=== PATIENT | female | born 1940 | race Caucasian/White ===

== ENCOUNTER 2018-07-30 12:07 | Inpatient (IN) ==
--- NOTE | 2018-07-30 12:56 | Internal Med History&Physical ---
Medical - H&P: [facility] Patient information: Note initiated : 07/30/18 at 12:54 pm Service Date, if different from initiated Date: [] Patient: Ema Vang a 78 y/o F admitted on 07/30/18 for GI Problems. Chief Complaint: [] History of present illness: Ms. Vang is a 78 year old F Who has acute on chronic diarrhea which is been occurring since April. She reports that this started after colonoscopy. She also had an EGD at that time and sounds like she had developed dilatation of her Schatzki ring. Small bowel biopsies were taken with nonspecific findings. Her diarrhea has been 5 or 6 times daily watery. As of lately she has had more at night with past 3 nights 6 times each night watery. She is been more lightheaded lately and was lightheaded at the dialysis center today. And was tachycardic in the low 100s. She said some gastrointestinal studies done over the past few months. She was on doxycycline for a while for small intestinal bacterial overgrowth but she states she did not see any improvement. She is also had a hard time keeping anything down since she has had increased diarrhea. Has had some nausea vomiting episodes over the past 3 days. She is able to keep liquids down just not solids. She denies any abdominal pain. No fevers or chills. Review of Systems: Pertinent positives as above . denies headache/fever/chills/chest or abdominal pain/cough/dyspnea. Remaining 10 point review of systems reviewed negative Medical - H&P: [facility] Medical history: Medical History Abdominal pain (Acute) Urinary retention (Acute) Hypertensive renal disease (Chronic) Proteinuria (Chronic) Edema (Chronic) Secondary hyperparathyroidism of renal origin (Chronic) Diabetes mellitus (Chronic) Chronic kidney disease, stage V (Chronic) Vitamin D deficiency (Acute) Sinusitis, chronic (Acute) Seborrheic keratosis (Acute) Renal osteodystrophy (Acute) Overweight (Acute) Osteoporosis (Acute) Obesity (Acute) Insomnia (Chronic) Hyposmolality and/or hyponatremia (Acute) Disorder of magnesium metabolism (Acute) Hypertensive heart disease, benign w/chronic kidney disease stage 1-4 (Acute) Hyperparathyroidism, primary (Acute) Hyperparathyroidism (Acute) Hyperlipidemia (Acute) Hyperkalemia (Acute) Hypercalcemia (Acute) Hypertension (Acute) Gastroesophageal reflux (Acute) Diabetes mellitus, type II (Acute) Depression (Acute) COPD (chronic obstructive pulmonary disease) (Acute) Chronic kidney disease, stage IV (severe) (Acute) Anxiety (Acute) Anemia, iron deficiency (Acute) 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) Acute renal disease (Acute) Past Surgical History Hx of hysterectomy (Acute) Hx of esophagogastroduodenoscopy (Acute) Low back surgery Family History mother Rheumatoid arthritis Malignant neoplasm of colon brother Diabetes mellitus Morbid obesity sister x2 Diabetes mellitus sister Parkinson's Disease Pneumonia, Onset Age: 59 Sister Renal failure Social History Quit smoking 10 years ago denies alcohol use does not use a cane or walker lives at home with her Medical - H&P: Meds Home Medications Medication Instructions Recorded Confirmed Type atorvastatin 40 mg tablet 40 mg PO QDAY tab 01/29/15 03/12/15 History blood sugar diagnostic strips 1 strip SQ PRN PRN 01/29/15 03/12/15 History carvedilol 25 mg tablet 25 mg PO BID tab 01/29/15 03/12/15 History glipizide 5 mg tablet 5 mg PO BID tab 01/29/15 03/12/15 History magnesium oxide 400 mg (241.3 mg 400 mg PO BID tab 01/29/15 03/12/15 History magnesium) tablet apple cider vinegar 300 mg tablet 600 mg PO BID tab 02/19/15 03/12/15 History Cyanocobalamin [Vitamin B12] 1,000 mcg IM MONTHLY 03/10/15 03/12/15 History ondansetron HCl 4 mg tablet 4 mg PO Q6H PRN #30 tab 03/16/15 Rx doxycycline hyclate 100 mg tablet 100 mg PO BID #6 tab 03/18/15 Rx calcitriol 0.5 mcg capsule 0.5 mcg PO .qod #45 cap 06/23/15 Rx fluconazole 200 mg tablet 200 mg PO Q48H 6 Days #3 tab 07/24/15 Rx fluticasone 250 mcg-salmeterol 50 1 puff INHALATION BID #1 each 08/28/15 Rx mcg/dose blistr powdr for inhalation azithromycin 500 mg tablet 500 mg PO Q24H #5 tab 12/26/16 Rx lidocaine 5 % topical patch 1 patch TOPICAL Q24H #30 each 08/01/17 Rx gabapentin 100 mg capsule 100 mg PO QHS #30 cap 09/04/17 Rx gentamicin 0.1 % topical cream 1 applic TOPICAL QDAY #30 g 10/26/17 Rx sevelamer carbonate 800 mg tablet 1,600 mg PO TID 90 Days #540 tab 10/30/17 Rx amlodipine 5 mg tablet 10 mg PO QDAY #180 tab 03/12/18 Rx furosemide 80 mg tablet 120 mg PO BID #270 tab 03/30/18 Rx omeprazole 20 mg capsule,delayed 20 mg PO QDAY #30 cap 05/28/18 Rx release B complex 11-folic acid 1 mg-C 100 1 tab PO QDAY #90 tab 05/30/18 Rx mg-biotin 300 mcg-zinc 50 mg tablet trazodone 50 mg tablet 50 mg PO QHS #90 tab 07/09/18 Rx Allergies Allergy/AdvReac Type Severity Reaction Status Date / Time hydrocodone Allergy Mild Vomiting Verified 05/03/18 07:09 Amoxicillin [From Augmentin] Allergy Unknown Hives Verified 05/03/18 07:09 ciprofloxacin [From Cipro] Allergy Unknown Unknown Verified 05/03/18 07:09 clavulanic acid Allergy Unknown Hives Verified 05/03/18 07:09 [From Augmentin] tramadol AdvReac Unknown Unknown Verified 05/03/18 07:09 codeine sulfate Allergy Unknown Vomiting Uncoded 03/10/15 14:49 Medical - H&P: Exam - Constitutional Exam: General: Alert, Awake, No acute Distress Eyes/N/T: EOMI, PEERL, DMM Head/Neck: neck supple, normocephalic atraumatic CV: Mildly tacky but regular, 2/6 SM normal s1/s2 Pulm: Clear b/l, no wheezing/rhonchi/rales Abd: soft, nontender, +BS x4 Ext: no clubbing/cyanosis, trace-1+ b/l LE edema Neuro: Alert, no focal deficits, moves all extremities, CN 2-12 grossly intact, symmetrical strength b/l upper/lower, sensations intact b/l upper/lower Skin: warm/dry Medical - H&P: A/P - Narrative A/P Narrative: A: *Acute on chronic diarrhea: -has had egd/colon in april with nonspecific findings, known finding of Schatzki ring -c. diff in past negative *Near Syncope: 2/2 volume depletion from above *ESRD w/PD: follows with Dr. Russ *DM: *COPD (not on home O2): *Anxiety/depression *HTN/HLD *GERD P: -IVF's -stools studies pending -GI consult -Nephrology following -clear liquid diet -oral contrast CT Abd/pel -clarify home meds -ppx: heparin/pepcid
[2018-07-30] MEDS ORDERED: ACETAMINOPHEN 325 MG TABLET PO PRN (13:19)
[2018-07-30 14:25] LABS: Basophils # (Auto) 0 K/mcL (0.0-0.3); Basophils % (Auto) 0.4 % (0.0-2.0); Eosinophils # (Auto) 0.1 K/mcL (0.0-0.7); Granulocytes % (Auto) 67.7 % (38.0-78.0); Lymphocytes # (Auto) 2.9 K/mcL (1.5-4.8); Lymphocytes % (Auto) 23.3 % (15.5-49.0); Mean Cell Volume 80.9 fL (80.0-100.0); Mean Corpuscular Hemoglobin 26.7 pg (26.0-34.0); Monocytes % (Auto) 7.6 % (1.0-12.0); Platelet Count 271 K/mcL (140-440); RBC 3.95 M/mcL (4.00-5.20); Red Cell Distribution Width 17.8 % (11.5-14.5)
[2018-07-30] MEDS ORDERED: LIDOCAINE PATCH TOPICAL PRN (14:31)
[2018-07-30] MEDS: 0.9 % SODIUM CHLORIDE 1,000 ML IV SCH (14:48)
[2018-07-30] MEDS: 0.9 % SODIUM CHLORIDE 10 ML SYRINGE IV SCH ×2 (14:49→23:48)
[2018-07-30 14:55] LABS: ALT/SGPT 16 U/l (0-40); Albumin/Globulin Ratio 0.9 (1.0-2.3); Alkaline Phosphatase 132 U/L (39-117); Bilirubin,Direct < 0.2 mg/dL (0.0-0.3); Blood Urea Nitrogen 29 mg/dl (8-23); Gamma Glutamyl Transpeptidase 14 U/L (5-36); Uric Acid 5.6 mg/dL (2.5-8.0)
[2018-07-30] MEDS ORDERED: amLODIPine 5 MG TABLET PO PRN (16:23)
--- NOTE | 2018-07-30 16:29 | Nephrology Consult Note ---
History of Present Illness - Reason for Consult Patient information: Note initiated : 07/30/18 at 4:24 pm Service Date, if different from initiated Date: [] Patient: Ema Vang 78 y/o F admitted on 07/30/18 for GI Problems. Chief Complaint: [] Consult date: 07/30/18 end stage renal disease Requesting physician: Paulo Danielle - Chief Complaint diarrhea - History of Present Illness Patient is a 78 y/o pleasant white female who follows with me for ESRD. Patient was seen in the clinic today, she c/o ongoing diarrhea, nausea, poor appetite, vomiting x 1-2. She has had 4-5kg weight loss Patient has been having GI issues for the past 2-3 mths, she had this and also needed colonoscopy for transplant eval and hence she was seen by GI, her EGD showed Schatzki's ring for which she was treated, colonoscopy did not show any etiology for her diarrhea. She was diagnosed with bacteral overgrowth syndrome and treated with doxycycline for 10 days, her symptoms initially improved and then recurred, she took a second course of doxy but this did not improve her symptoms. She then saw her PCP, C diff checked was negative. She was given cholesytramine but this did not work, she has been taking imodium on and off as well She denies fever, chills no SOB, CP no edema she however has been getting hypotensive intermittently, c/o lightheadedness PD machine was not working and she had to do manual dwells denies sick contacts no other issues reported Review of Systems All systems PM: reviewed and no additional remarkable complaints except as stated (as in HPI) Past History Past medical history: ESRD on PD DM type 2 HTN anemia of CKD secondary hyperparathyroidism gerd osteoporosis COPD dyslipidemia Past surgical history: h/o hysterectomy h/o PD cath placement Past family history: Rheumatoid arthritis mother Malignant neoplasm of colon mother Diabetes mellitus brother Morbid obesity brother Diabetes mellitus sister x2 Parkinson's Disease sister Pneumonia sister Renal failure Sister Past social history: lives with her in [place] no current addictions Medications and Allergies Home Medications Medication Instructions Recorded Confirmed Type atorvastatin 40 mg tablet 20 mg PO QDAY tab 01/29/15 07/30/18 History carvedilol 25 mg tablet 25 mg PO BID tab 01/29/15 07/30/18 History fluticasone 250 mcg-salmeterol 50 1 puff INHALATION BID #1 each 08/28/15 Rx mcg/dose blistr powdr for inhalation gentamicin 0.1 % topical cream 1 applic TOPICAL QDAY #30 g 10/26/17 07/30/18 Rx sevelamer carbonate 800 mg tablet 1,600 mg PO TID 90 Days #540 tab 10/30/17 Rx amlodipine 5 mg tablet 10 mg PO QDAY #180 tab 03/12/18 07/30/18 Rx B complex 11-folic acid 1 mg-C 100 1 tab PO QDAY #90 tab 05/30/18 07/30/18 Rx mg-biotin 300 mcg-zinc 50 mg tablet trazodone 50 mg tablet 50 mg PO QHS #90 tab 07/09/18 07/30/18 Rx Advair 250-50 Diskus 1 inh INH BID 07/30/18 07/30/18 History Cinacalcet [Sensipar] 60 mg PO DAILY 07/30/18 07/30/18 History Furosemide [Lasix] 40 mg PO DAILY 07/30/18 07/30/18 History Furosemide [Lasix] 120 mg PO 1800 07/30/18 07/30/18 History Lidocaine 1 patch TOPICAL PRN PRN 07/30/18 07/30/18 History Lisinopril [Zestril] 1 tab PO BID 07/30/18 07/30/18 History Sensipar 30 mg PO HS 07/30/18 07/30/18 History Zofran 8 mg PO Q8HP PRN 07/30/18 07/30/18 History Allergies Allergy/AdvReac Type Severity Reaction Status Date / Time hydrocodone Allergy Mild Vomiting Verified 05/03/18 07:09 Amoxicillin [From Augmentin] Allergy Unknown Hives Verified 05/03/18 07:09 ciprofloxacin [From Cipro] Allergy Unknown Unknown Verified 05/03/18 07:09 clavulanic acid Allergy Unknown Hives Verified 05/03/18 07:09 [From Augmentin] tramadol AdvReac Unknown Unknown Verified 05/03/18 07:09 codeine sulfate Allergy Unknown Vomiting Uncoded 03/10/15 14:49 Exam - Vital Signs Vital signs: Temp Pulse Resp BP Pulse Ox 97.9 F 110 H 20 120/63 97 07/30/18 13:09 07/30/18 13:09 07/30/18 13:09 07/30/18 13:09 07/30/18 13:09 - General Appearance General appearance: appears started age, chronically ill, fatigue EENT: mucous membranes moist Neck: no JVD Respiratory: clear Cardiology: no rub, no edema, regular rate, regular rhythm (tachycardic) Gastrointestinal: no tenderness (exit site is clean), no guarding Integumentary: no rash, warm and dry Neurologic: alert and oriented x3 Musculoskeletal: no erythema, no cyanosis Psychiatric: mood/affect appropriate Results - Lab Results 07/31/18 06:11 07/31/18 06:11 Most recent lab results Calcium 7.7 mg/dl (8.6-10.4) L 07/30/18 13:56 Phosphorus 5.4 mg/dL (2.7-4.5) H 07/30/18 13:56 Magnesium 1.2 mg/dL (1.6-2.5) L 07/30/18 13:56 Assessment and Plan (1) ESRD on peritoneal dialysis Status: Chronic Priority: Medium (2) Diarrhea Status: Acute - Narrative A/P Narrative: Patient with volume depletion, weight loss in the setting of acute on chronic diarrheawith failed outpatient treatment been admitted for further work up, hydration Stool studies ordered by Dr Danielle consider CT scan of abdomen with oral contrast have requested GI to follow her will also check PD fluid and ensure no PD peritonitis, we have checked this before and was negative ESRD on PD: Will have her do 4 cycles of 1.5% dianeal, volume 1800, total time 8 hrs. anemia of CKD: Hb at goal today secondary hyperparathyroidism: ct binders, cinacalcet for now HTN: BP low normal, will hold lisinopril, amlodipine only if needed, ct coreg as tolerated Patient will be followed by Dr Gorman for further nephrology needs, I have signed off to him Appreciate hospitalist and GI help in managing this patient
--- NOTE | 2018-07-30 17:28 | Cat Scan Report ---
CLINICAL INFORMATION: Diarrhea COMPARISON: Plain film examinations dated 11/28/2016, 04/16/2015 TECHNIQUE: Axial images were obtained through the abdomen and pelvis. Sagittally and coronally reformatted images. FINDINGS: Lung bases are negative. No parenchymal infiltrate or mass. No pleural fluid. No pericardial fluid. There is coronary artery calcification. There is a calcified granuloma at the right lung base. There is pneumoperitoneum. There is a peritoneal dialysis catheter and this pneumoperitoneum is presumably iatrogenic. There is no intraperitoneal contrast material. There is contrast material within small bowel and colon. There is mild sigmoid diverticulosis. No evidence for diverticulitis. No detectable colonic mass. No mechanical small bowel obstruction. Liver is negative to the limits of noncontrast enhanced examination. Gallbladder is present. No calcified gallstones. No pancreatic mass identified. No peripancreatic abnormality. There are calcifications within the spleen consistent with old granulomatous disease. Adrenal glands are negative. There are multiple large renal cysts bilaterally consistent with polycystic kidney disease. No detectable solid masses. No hydronephrosis. No hydroureter. There is extensive vascular calcification. Abdominal aorta is densely calcified. There are renal vascular calcifications. Uterus is not identified. There is no adnexal mass. No free intraperitoneal fluid. No intra-abdominal abscess. No biliary or portal venous gas. Patient has undergone previous posterior spinal fusion from L2 through L4. No lumbar compression fracture. No lytic lesion. No sacral or pelvic lesions IMPRESSION: 1. Pneumoperitoneum. This is probably iatrogenic secondary to peritoneal dialysis catheter 2. Multiple large renal cysts consistent with polycystic kidney disease. No hydronephrosis 3. Mild diverticulosis. No evidence for diverticulitis 4. Extensive calcified atherosclerotic disease. The exam was performed using radiation dose optimization techniques including, but not limited to, automated exposure control, adjustment of the mA and/or kV according to patient size and use of iterative reconstruction technique. Interpreted and Authenticated by: Kolby Dover 07/30/18
[2018-07-30] MEDS: SEVELAMER 800 MG TABLET PO SCH (17:33)
[2018-07-30] MEDS: CARVEDILOL 12.5 MG TABLET PO SCH (17:33)
--- NOTE | 2018-07-30 17:41 | Internal Medicine Consult Note ---
Medical - CN: HPI - Data of Consult Patient: known to practice within the last 3 years Consult date: 07/30/18 Requesting Physician: Paulo Danielle; Dr. Russ Primary Care Provider: Sky Ceja - Consult Narrative Reason for consult: diarrhea, vomiting History of present illness: Ms. Vang is a 78 year old F whom I know well having seen her in the past for diabetic diarrhea with postprandial vomiting without nausea. She noted a change in bowel habit 9 months ago, beginning to have intermittent diarrhea with nocturnal stooling. Diagnostic work up was undertaken in April 2018, during which colonoscopy revealed no cause of diarrhea (terminal ileum and random colon biopsies were normal) and EGD revealed no evidence of malabsorption on small bowel biopsy. It was suspected she had small intestinal bacterial overgrowth and chart notes document her diarrhea quickly resolved a course of low dose doxycycline. However, the patient and her state today she never had improvement in her diarrhea. For unclear reasons, she did not call my office for further evaluation. She is having up to 8 watery BMs daily with majority of BMs being nocturnal. She denies any constipation. She is having some red blood with BMs and complains of fecal incontinence. She typically has dry heaves in the morning, but began to have vomiting immediately after eating earlier this week. She denies any food from day prior in her emesis. She denies dysphagia despite a history of Schatzki's ring. She tells me glycemic control has been good. She denies nausea or headache. She has been taking ondansetron without success. She consulted her PCP who prescribed cholestyramine 4g TID without any improvement. Dr. Russ was under the impression she'd been given metronidazole, but Mrs. Vang denies taking any. She took Imodium 1 tablet yesterday and her diarrhea resolved for 24 hours. She has lost 6lbs as a consequence of her symptoms. Stool culture is pending. C difficile and fecal leukocyte smear are negative. CT of the abdomen and pelvis are pending. CC: Paulo Danielle - Constitutional Constitutional: Present: weight loss. Absent: fever(s), headache(s) - Gastrointestinal Gastrointestinal: Present: diarrhea. Absent: dysphagia, early satiety, nausea Medical - CN: PMH Medical history: Diabetes type II, hypertensive nephropathy on peritoneal dialysis, hypertension , diabetic diarrhea Surgical history: Back surgery, peritoneal dialysis catheter placement, partial hysterectomy, Lasik Pertinent family history: Mother had colon cancer. Sister is a diabetic. Social history: Lives in [place], [place] with . Follow up in clinic has been poor as patient reluctant to travel for appointments. Smoking status: Former smoker Drug use: none Alcohol use: none Medical - CN: Meds Home Medications Medication Instructions Recorded Confirmed Type atorvastatin 40 mg tablet 20 mg PO QDAY tab 01/29/15 07/30/18 History blood sugar diagnostic strips 1 strip SQ PRN PRN 01/29/15 03/12/15 History carvedilol 25 mg tablet 25 mg PO BID tab 01/29/15 07/30/18 History fluticasone 250 mcg-salmeterol 50 1 puff INHALATION BID #1 each 08/28/15 Rx mcg/dose blistr powdr for inhalation gentamicin 0.1 % topical cream 1 applic TOPICAL QDAY #30 g 10/26/17 07/30/18 Rx sevelamer carbonate 800 mg tablet 1,600 mg PO TID 90 Days #540 tab 10/30/17 Rx amlodipine 5 mg tablet 10 mg PO QDAY #180 tab 03/12/18 07/30/18 Rx B complex 11-folic acid 1 mg-C 100 1 tab PO QDAY #90 tab 05/30/18 07/30/18 Rx mg-biotin 300 mcg-zinc 50 mg tablet trazodone 50 mg tablet 50 mg PO QHS #90 tab 07/09/18 07/30/18 Rx Advair 250-50 Diskus 1 inh INH BID 07/30/18 07/30/18 History Cinacalcet [Sensipar] 60 mg PO DAILY 07/30/18 07/30/18 History Furosemide [Lasix] 40 mg PO DAILY 07/30/18 07/30/18 History Furosemide [Lasix] 120 mg PO 1800 07/30/18 07/30/18 History Lidocaine 1 patch TOPICAL PRN PRN 07/30/18 07/30/18 History Lisinopril [Zestril] 1 tab PO BID 07/30/18 07/30/18 History Sensipar 30 mg PO HS 07/30/18 07/30/18 History Zofran 8 mg PO Q8HP PRN 07/30/18 07/30/18 History Allergies Allergy/AdvReac Type Severity Reaction Status Date / Time hydrocodone Allergy Mild Vomiting Verified 05/03/18 07:09 Amoxicillin [From Augmentin] Allergy Unknown Hives Verified 05/03/18 07:09 ciprofloxacin [From Cipro] Allergy Unknown Unknown Verified 05/03/18 07:09 clavulanic acid Allergy Unknown Hives Verified 05/03/18 07:09 [From Augmentin] tramadol AdvReac Unknown Unknown Verified 05/03/18 07:09 codeine sulfate Allergy Unknown Vomiting Uncoded 03/10/15 14:49 Medical - CN: Exam - Constitutional Vitals: Temp Pulse Resp BP Pulse Ox 97.3 F 110 H 20 132/73 97 07/30/18 16:00 07/30/18 13:09 07/30/18 16:00 07/30/18 16:00 07/30/18 16:00 General appearance: average body habitus, cooperative, no acute distress - Head Head exam: Present: atraumatic, normal inspection - Neck Neck exam: Absent: lymphadenopathy - Respiratory Respiratory exam: Present: normal respiratory exam, CTAB - Cardiovascular Cardiovascular exam: Present: normal rate and rhythm. Absent: clicks, gallop - GI/Abdominal GI/Abdominal exam: Present: normal bowel sounds, soft, tenderness. Absent: hernia, mass, organomegaly Additional comments: Mild LLQ tenderness on exam. Peritoneal catheter in place. - Psychiatric Psychiatric exam: Present: normal affect, normal mood Medical - CN: Result - Labs CBC & Chem 7: 07/30/18 13:56 07/30/18 13:56 Labs: Short CBC 07/30/18 Range/Units 13:56 WBC 12.5 H (4.5-11.0) K/mcL Hgb 10.6 L (12.0-15.0) g/dL Hct 32.0 L (36.0-48.0) % Plt Count 271 (140-440) K/mcL BMP 07/30/18 13:56 Sodium 137 Potassium 4.0 Chloride 96 Carbon Dioxide 22 BUN 29 H Creatinine 6.9 H* Glucose 90 Calcium 7.7 L Liver Function 07/30/18 Range/Units 13:56 Total Bilirubin 0.2 (0.0-1.0) mg/dL Direct Bilirubin < 0.2 (0.0-0.3) mg/dL GGT 14 (5-36) U/L AST 22 (0-37) U/l ALT 16 (0-40) U/l Alkaline Phosphatase 132 H (39-117) U/L Albumin 3.0 L (3.2-5.2) gm/dL Medical - CN: A/P (1) Diarrhea Status: Acute Assessment and plan: As you know, diabetic diarrhea occurs in roughly 20% of diabetic patients. The primary mechanisms of action include bacterial overgrowth (SIBO), bile salt malabsorption, increased intestinal secretion, and altered gut motility secondary to neuropathy. I think a trial of loperamide 2mg 2-4 tablets PO up to 4 times daily would be reasonable. SIBO has a high rate of recurrence and I suspect that she actually responded to doxycycline, but had recurrent symptoms quickly. Sometimes, patients require a short course of antibiotic for the first week of the month and antibiotics can be rotated to prevent resistance. She may require additional therapy for bacterial overgrowth and, given her recurrent symptoms, rifaximin would be the next antibiotic to try (xifaxan 550mg PO TID x 14 days). Pancreatic exocrine insufficiency is also on the differential, so if she fails to have improvement on Imodium, checking a 72 hour fecal fat would be reasonable , although I do not get the sense she is having steatorrhea by history. We will also check urine 5HIAA, serotonin, VIP, calcitonin, etc for neuroendocrine tumor as a cause of diarrhea. 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 Would recommend gastric emptying scan when patient is stable for transport to [facility]. A trial of metoclopramide would be reasonable (NTE 12 weeks of therapy). If metoclopramide fails to resolve complaints, will arrange for repeat EGD.
[2018-07-30] MEDS ORDERED: LISINOPRIL 5 MG TABLET PO SCH (21:00)
[2018-07-30] MEDS: LOPERAMIDE 2 MG CAPSULE PO PRN (21:47)
[2018-07-30] MEDS: traZODone HCL 50 MG TABLET PO SCH (21:48)
[2018-07-30] MEDS: FAMOTIDINE 20 MG TABLET PO SCH (21:48)
[2018-07-30] MEDS: HEPARIN 5,000 UNIT/ML VIAL SQ SCH (21:49)
[2018-07-30] MEDS: CINACALCET 30 MG TABLET PO SCH (21:49)
[2018-07-30 21:52] LABS: Appearance, Body Fluid CLEAR; Color, Body Fluid COLORLESS; Mesothelial,Body Fluid 2 %; Nucleated Cells,Body Fld 202 /cumm; RBC, Body Fluid < 50000 /cumm; Total Cell Count Body Fld 100
[2018-07-31] MEDS: LOPERAMIDE 2 MG CAPSULE PO PRN ×2 (01:16→09:35)
[2018-07-31] MEDS: 0.9 % SODIUM CHLORIDE 1,000 ML IV SCH (02:09)
[2018-07-31 06:55] LABS: Basophils # (Auto) 0 K/mcL (0.0-0.3); Basophils % (Auto) 0.3 % (0.0-2.0); Eosinophils # (Auto) 0.2 K/mcL (0.0-0.7); Eosinophils % (Auto) 2.3 % (0.0-7.0); Granulocytes % (Auto) 54.3 % (38.0-78.0); Lymphocytes # (Auto) 3.1 K/mcL (1.5-4.8); Lymphocytes % (Auto) 34.2 % (15.5-49.0); Mean Cell Volume 81.6 fL (80.0-100.0); Mean Corpuscular HGB Conc 32.7 g/dL (31.0-36.0); Mean Corpuscular Hemoglobin 26.7 pg (26.0-34.0); Monocytes # (Auto) 0.8 K/mcL (0.1-0.9); Monocytes % (Auto) 8.9 % (1.0-12.0); Platelet Count 236 K/mcL (140-440); RBC 3.26 M/mcL (4.00-5.20); Red Cell Distribution Width 17.6 % (11.5-14.5)
[2018-07-31 07:38] LABS: ALT/SGPT 12 U/l (0-40); Albumin 2.4 gm/dL (3.2-5.2); Albumin/Globulin Ratio 0.9 (1.0-2.3); Alkaline Phosphatase 107 U/L (39-117); Bilirubin,Direct < 0.2 mg/dL (0.0-0.3); Blood Urea Nitrogen 25 mg/dl (8-23); Gamma Glutamyl Transpeptidase 13 U/L (5-36); Uric Acid 5.1 mg/dL (2.5-8.0)
[2018-07-31] MEDS ORDERED: MAGNESIUM SULFATE 8.12 MEQ in DEXTROSE 5% IN WATER 50 ML IV ONE (07:42)
--- NOTE | 2018-07-31 07:42 | Internal Med Progress Note ---
Medical - PN: Subj Patient information: Note initiated : 07/31/18 at 7:38 am Service Date, if different from initiated Date: [] Patient: Ema Vang 78 y/o F admitted on 07/30/18 for GI Problems. Chief Complaint: [] Interval history: Ms. Vang is a 78 year old F Who has acute on chronic diarrhea which is been occurring since April. She reports that this started after colonoscopy. She also had an EGD at that time and sounds like she had developed dilatation of her Schatzki ring. Small bowel biopsies were taken with nonspecific findings. Her diarrhea has been 5 or 6 times daily watery. As of lately she has had more at night with past 3 nights 6 times each night watery. She is been more lightheaded lately and was lightheaded at the dialysis center today. And was tachycardic in the low 100s. She said some gastrointestinal studies done over the past few months. She was on doxycycline for a while for small intestinal bacterial overgrowth but she states she did not see any improvement. She is also had a hard time keeping anything down since she has had increased diarrhea. Has had some nausea vomiting episodes over the past 3 days. She is able to keep liquids down just not solids. She denies any abdominal pain. No fevers or chills. 07/31 Diarrhea started up again yesterday late afternoon and evening. Had nausea and dry heaves this morning which is been common for her in the mornings. Week. Poor sleep last night. Review of Systems: denies headache/fever/chills/nausea/vomiting/chest or abdominal pain/cough/ dyspnea. Otherwise see above. - Constitutional Vitals: Vital Signs Temp Pulse Resp BP Pulse Ox 98.8 F 80 14 90/56 94 07/31/18 02:52 07/31/18 02:51 07/31/18 02:51 07/31/18 02:52 07/31/18 02:51 Period Temp Pulse Resp BP Sys/Hartman Pulse Ox Last 24 Hr 97.3 F-99.3 F 76-110 14-20 90-132/46-73 91-97 Intake and Output 07/30/18 07/31/18 07/31/18 21:59 05:59 13:59 Intake Total 700 / 700 1220 / 1220 Output Total 230 / 230 150 / 150 Balance 470 / 470 1070 / 1070 Weight 69 kg Intake & Output: Intake & Output 07/30/18 07/31/18 07/31/18 21:59 05:59 13:59 Intake Total 700 / 700 1220 / 1220 Output Total 230 / 230 150 / 150 Balance 470 / 470 1070 / 1070 Weight 69 kg Intake: IV 1000 / 1000 Sodium Chloride 0.9% 1,000 ml @ 1000 / 1000 100 mls/hr IV .Q10H [facility] Rx#: [id number] Oral 700 / 700 220 / 220 Output: Void Amount 30 / 30 150 / 150 Urine/Stool Mix 100 / 100 Stool 100 / 100 Other: Urine Appearance Clear Clear Urine Color Straw Pale Urine Odor Normal Normal Stool Size Small Stool Color Brown Stool Consistency Liquid Watery Loose Exam: General: Alert, Awake, No acute Distress Eyes/N/T: EOMI, Head/Neck: neck supple, CV: RRR, 2/6 SM normal s1/s2 Pulm: Clear b/l, no wheezing/rhonchi/rales Abd: soft, nontender, +BS x4 Ext: no clubbing/cyanosis, trace-1+ b/l LE edema Neuro: Alert, no focal deficits, moves all extremities, Skin: warm/dry Medical - PN: Obj Da - Labs CBC & Chem 7: 07/31/18 06:11 07/31/18 06:11 Labs: Abnormal Lab Results 07/31/18 07/31/18 07/30/18 06:11 06:11 13:56 WBC RBC 3.26 L Hgb 8.7 L Hct 26.6 L RDW 17.6 H Gran # [place] # (Auto) Carbon Dioxide 21 L Anion Gap 19.0 H BUN 25 H 29 H Creatinine 5.9 H* 6.9 H* Calcium 7.1 L 7.7 L Phosphorus 5.3 H 5.4 H Magnesium 1.1 L 1.2 L Alkaline Phosphatase 132 H Lactate Dehydrogenase 265 H Total Protein 5.0 L Albumin 2.4 L 3.0 L Albumin/Globulin Ratio 0.9 L 0.9 L Triglycerides 204 H 201 H 07/30/18 13:56 WBC 12.5 H RBC 3.95 L Hgb 10.6 L Hct 32.0 L RDW 17.8 H Gran # 8.5 H [place] # (Auto) 1.0 H Carbon Dioxide Anion Gap BUN Creatinine Calcium Phosphorus Magnesium Alkaline Phosphatase Lactate Dehydrogenase Total Protein Albumin Albumin/Globulin Ratio Triglycerides Meds: Medications Acetaminophen (Tylenol) 650 mg PO Q6HP PRN PRN Reason: PAIN/FEVER > 101 Amlodipine Besylate (Norvasc) 5 mg PO DAILY PRN PRN Reason: Blood Pressure - High Atorvastatin Calcium (Lipitor) 20 mg PO QDAY [facility] Carvedilol (Coreg) 25 mg PO BIDCC [facility] Last Admin: 07/30/18 17:33 Dose: 25 mg Cinacalcet (Sensipar) 60 mg PO DAILY [facility] Cinacalcet (Sensipar) 60 mg PO HS [facility] Last Admin: 07/30/18 21:49 Dose: 60 mg Famotidine (Pepcid) 20 mg PO HS [facility] Last Admin: 07/30/18 21:48 Dose: 20 mg Gentamicin Sulfate (Gentamicin Crm 0.1%) 1 dose TOPICAL QD [facility] Heparin Sodium (Porcine) (Heparin) 5,000 unit SQ Q12 [facility] Last Admin: 07/30/18 21:49 Dose: 5,000 unit Sodium Chloride (Sodium Chloride 0.9%) 1,000 mls @ 100 mls/hr IV .Q10H [facility] Stop: 07/31/18 09:29 Last Admin: 07/31/18 02:09 Dose: 100 mls/hr Lidocaine (Lidoderm) 1 patch TOPICAL PRN PRN PRN Reason: Pain Loperamide HCl (Imodium) 2 mg PO PRN PRN PRN Reason: Diarrhea Last Admin: 07/31/18 01:16 Dose: 2 mg Non-Formulary Medication (Fluticasone/Salmeterol [Advair 250-50 Diskus]) 1 puff INHALATION BID [facility] Ondansetron HCl (Zofran) 4 mg IV Q6HP PRN PRN Reason: Nausea And Vomiting Pneumococcal Polyvalent Vaccine (Pneumovax 23) 0.5 ml IM .ONCE ONE Stop: 07/31/18 10:01 Fluticasone/Salmeterol (Advair 250-50 Diskus) 1 puff INH BID [facility] Sevelamer Carbonate (Renvela) 1,600 mg PO TIDCC [facility] Last Admin: 07/30/18 17:33 Dose: 1,600 mg Sodium Chloride (Saline Flush) 10 ml IV Q8 [facility] Last Admin: 07/30/18 23:48 Dose: 10 ml Trazodone HCl (Desyrel) 50 mg PO QHS [facility] Last Admin: 07/30/18 21:48 Dose: 50 mg Medical - PN: A/P - Time Spent With Patient Total time spent is greater than 50% in coordination of care (as documented) at patient's floor/unit and/or counseling patient: - Narrative A/P Narrative: A: *Acute on chronic diarrhea: -had egd/colon in April with nonspecific findings, known finding of Schatzki ring -CT A/P no acute path -c. diff neg *Near Syncope: 2/2 volume depletion from above *ESRD w/PD: follows with Dr. Russ *DM: *COPD (not on home O2): *Anxiety/depression *HTN/HLD *GERD P: -IVF's -stools studies pending -GI following, urine study pending -loperamide -Nephrology following -clear liquid diet -pending GES @ [facility] -ppx: heparin/pepcid Medical - PN: Qual - VTE Deep Vein Thrombosis/Pulmonary Embolism Present on Admission: No
[2018-07-31] MEDS: ONDANSETRON 4 MG/2 ML VIAL IV PRN (07:53)
[2018-07-31] MEDS: 0.9 % SODIUM CHLORIDE 10 ML SYRINGE IV SCH ×2 (07:54→13:49)
--- NOTE | 2018-07-31 08:25 | Nephrology Progress Note ---
Subjective Patient information: Note initiated : 07/31/18 at 8:23 am Patient: Ema Vang 78 y/o F admitted on 07/30/18 for GI Problems. Chief Complaint: Nausea, vomiting and diarrhea Principal diagnosis: Nausea, vomiting and diarrhea Interval history: CCPD interrupted after 2 cycles due to cycler or other malfunction Pertinent ROS: Nausea Vomiting Diarrhea Objective - Vital Signs Vital signs: Vital Signs Temp Pulse Resp BP BP Pulse Ox 07/31/18 02:52 98.8 F 90/56 07/31/18 02:51 98.0 F 80 14 115/56 94 07/30/18 23:45 98.6 F 82 14 90/46 91 07/30/18 20:46 99.3 F H 95/46 07/30/18 19:40 99.3 F H 76 16 95/46 94 07/30/18 16:00 97.3 F 20 132/73 97 07/30/18 13:09 97.9 F 110 H 20 120/63 97 Intake and Output 07/30/18 07/31/18 07/31/18 21:59 05:59 13:59 Intake Total 700 / 700 1220 / 1220 Output Total 230 / 230 150 / 150 Balance 470 / 470 1070 / 1070 Intake: IV 1000 / 1000 Sodium Chloride 0.9% 1,000 ml @ 1000 / 1000 100 mls/hr IV .Q10H [facility] Rx#: [id number] Oral 700 / 700 220 / 220 Output: Void Amount 30 / 30 150 / 150 Urine/Stool Mix 100 / 100 Stool 100 / 100 Other: Urine Appearance Clear Clear Urine Color Straw Pale Urine Odor Normal Normal Stool Size Small Stool Color Brown Stool Consistency Liquid Watery Loose Weight 152 lb 1.903 oz Intake & Output: Intake & Output 07/30/18 07/31/18 07/31/18 21:59 05:59 13:59 Intake Total 700 / 700 1220 / 1220 Output Total 230 / 230 150 / 150 Balance 470 / 470 1070 / 1070 Weight 152 lb 1.903 oz Intake: IV 1000 / 1000 Sodium Chloride 0.9% 1,000 ml @ 1000 / 1000 100 mls/hr IV .Q10H [facility] Rx#: [id number] Oral 700 / 700 220 / 220 Output: Void Amount 30 / 30 150 / 150 Urine/Stool Mix 100 / 100 Stool 100 / 100 Other: Urine Appearance Clear Clear Urine Color Straw Pale Urine Odor Normal Normal Stool Size Small Stool Color Brown Stool Consistency Liquid Watery Loose - General Appearance General appearance: appears started age, chronically ill EENT: mucous membranes moist Neck: supple Respiratory: clear Cardiology: no edema Gastrointestinal: tenderness Integumentary: warm and dry Neurologic: no focal deficit, alert and oriented x3 Musculoskeletal: no deformities Psychiatric: mood/affect appropriate, cooperative - Lab 07/31/18 06:11 07/31/18 06:11 Most recent lab results Calcium 7.1 mg/dl (8.6-10.4) L 07/31/18 06:11 Phosphorus 5.3 mg/dL (2.7-4.5) H 07/31/18 06:11 Magnesium 1.1 mg/dL (1.6-2.5) L 07/31/18 06:11 Assessment and Plan (1) ESRD on peritoneal dialysis Eam Vang is a 78-year-old female with end-stage renal disease on chronic peritoneal dialysis (followed by Dr. 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 Progress: PD Fluid cell count on 07/30/18: Nucleated cells 202, 80% neutrophils, gram stain or culture not done CCPD interrupted after 2 cycles due to cycler or other malfunction. Discussion: Acute peritonitis associated with peritoneal dialysis suspected based on above cell count. Plan: Repeat cell count/diff with gram stain and culture from peritoneal fluid to be obtained by PD nurse with 1 liter, 2.5% fluid, 2 hour dwell. Continue CCPD with total volume 7,200 ml, 4 exchanges of 1,800 ml, 1.5%, total time 9 hours if malfunction could be corrected. Status: Chronic Priority: Medium (2) Peritonitis associated with peritoneal dialysis Please see above Status: Suspected Priority: High (3) Anemia due to end stage renal disease Status: Chronic Priority: Medium
[2018-07-31] MEDS ORDERED: FUROSEMIDE 80 MG TABLET PO SCH (09:00)
[2018-07-31] MEDS ORDERED: amLODIPine 5 MG TABLET PO SCH (09:00)
[2018-07-31] MEDS ORDERED: MAGNESIUM SULFATE 8.12 MEQ/2 ML VIAL ONE (09:16)
[2018-07-31] MEDS: ATORVASTATIN 20 MG TABLET PO SCH (09:26)
[2018-07-31] MEDS: CINACALCET 30 MG TABLET PO SCH ×2 (09:26→20:37)
[2018-07-31] MEDS: SEVELAMER 800 MG TABLET PO SCH ×3 (09:26→17:31)
[2018-07-31] MEDS: HEPARIN 5,000 UNIT/ML VIAL SQ SCH ×2 (09:26→20:37)
[2018-07-31] MEDS: CARVEDILOL 12.5 MG TABLET PO SCH ×2 (09:30→17:31)
[2018-07-31] MEDS ORDERED: PNEUMOCOCCAL 23-VAL P-SAC VAC 0.5 ML VIAL IM ONE (10:00)
[2018-07-31 16:43] LABS: Nucleated Cel,Peritoneal Fluid 62 /cumm; RBC,Peritoneal Fluid < 50000 /cumm
[2018-07-31 16:45] LABS: Neutrophils,Peritoneal Fluid 36 %
--- NOTE | 2018-07-31 17:10 | Internal Med Progress Note ---
Medical - PN: Subj Patient information: Note initiated : 07/31/18 at 5:08 pm Service Date, if different from initiated Date: [] Patient: Ema Vang 78 y/o F admitted on 07/30/18 for GI Problems. Chief Complaint: [diarrhea/vomiting/nausea] Interval history: Pt has done better on loperamide and ondansetron; has not had any diarrhea today after 1 tablet of loperamide per nursing. Ondansetron relieves nausea and vomiting. Question of peritonitis based on peritoneal fluid dialysis per water leak repairer but pt does not have peritoneal signs. GES scheduled for tomorrow. - Constitutional Vitals: Vital Signs Temp Pulse Resp BP Pulse Ox 97.8 F 85 14 122/87 92 07/31/18 15:44 07/31/18 15:44 07/31/18 15:44 07/31/18 15:44 07/31/18 15:44 Period Temp Pulse Resp BP Sys/Hartman Pulse Ox Last 24 Hr 97 F-99.3 F 76-85 14-16 90-122/46-87 91-95 Intake and Output 07/31/18 07/31/18 07/31/18 05:59 13:59 21:59 Intake Total 1220 / 1220 1412 / 1412 450 / 450 Output Total 150 / 150 150 / 150 200 / 200 Balance 1070 / 1070 1262 / 1262 250 / 250 Weight 152 lb 1.903 oz Patient Weight 08/01/18 05:59 Weight 152 lb 1.903 oz Intake & Output: Intake & Output 07/31/18 07/31/18 07/31/18 05:59 13:59 21:59 Intake Total 1220 / 1220 1412 / 1412 450 / 450 Output Total 150 / 150 150 / 150 200 / 200 Balance 1070 / 1070 1262 / 1262 250 / 250 Weight 152 lb 1.903 oz Intake: IV 1000 / 1000 1052 / 1052 Sodium Chloride 0.9% 1,000 ml @ 1000 / 1000 100 mls/hr IV .Q10H [facility] Rx#: [id number] Oral 220 / 220 360 / 360 450 / 450 Output: Void Amount 150 / 150 150 / 150 200 / 200 Other: Meal Lunch Percent of Meal Consumed 100% Feeding Ability Independent Urine Appearance Clear Urine Color Pale Urine Odor Normal Stool Size Small Stool Color Brown Stool Consistency Watery # Voids 1 General appearance: average body habitus, cooperative, no acute distress - Head Head exam: Present: atraumatic, normal inspection - Respiratory Respiratory exam: Present: normal respiratory exam, CTAB - Cardiovascular Cardiovascular exam: Present: normal rate and rhythm - GI/Abdominal GI/Abdominal exam: Present: normal bowel sounds, soft. Absent: guarding, mass, rigid - Psychiatric Psychiatric exam: Present: normal affect, normal mood - Skin Skin exam: Present: intact, normal color, warm Medical - PN: Obj Da - Labs CBC & Chem 7: 07/31/18 06:11 07/31/18 06:11 Labs: Abnormal Lab Results 07/31/18 07/31/18 07/30/18 06:11 06:11 13:56 WBC RBC 3.26 L Hgb 8.7 L Hct 26.6 L RDW 17.6 H Gran # [place] # (Auto) Carbon Dioxide 21 L Anion Gap 19.0 H BUN 25 H 29 H Creatinine 5.9 H* 6.9 H* Calcium 7.1 L 7.7 L Phosphorus 5.3 H 5.4 H Magnesium 1.1 L 1.2 L Alkaline Phosphatase 132 H Lactate Dehydrogenase 265 H Total Protein 5.0 L Albumin 2.4 L 3.0 L Albumin/Globulin Ratio 0.9 L 0.9 L Triglycerides 204 H 201 H 07/30/18 13:56 WBC 12.5 H RBC 3.95 L Hgb 10.6 L Hct 32.0 L RDW 17.8 H Gran # 8.5 H [place] # (Auto) 1.0 H Carbon Dioxide Anion Gap BUN Creatinine Calcium Phosphorus Magnesium Alkaline Phosphatase Lactate Dehydrogenase Total Protein Albumin Albumin/Globulin Ratio Triglycerides Meds: Medications Acetaminophen (Tylenol) 650 mg PO Q6HP PRN PRN Reason: PAIN/FEVER > 101 Amlodipine Besylate (Norvasc) 5 mg PO DAILY PRN PRN Reason: Blood Pressure - High Atorvastatin Calcium (Lipitor) 20 mg PO QDAY [facility] Last Admin: 07/31/18 09:26 Dose: 20 mg Carvedilol (Coreg) 25 mg PO BIDCC [facility] Last Admin: 07/31/18 09:30 Dose: Not Given Cinacalcet (Sensipar) 60 mg PO DAILY [facility] Last Admin: 07/31/18 09:26 Dose: 60 mg Cinacalcet (Sensipar) 60 mg PO HS [facility] Last Admin: 07/30/18 21:49 Dose: 60 mg Famotidine (Pepcid) 20 mg PO HS [facility] Last Admin: 07/30/18 21:48 Dose: 20 mg Gentamicin Sulfate (Gentamicin Crm 0.1%) 1 dose TOPICAL QD [facility] Heparin Sodium (Porcine) (Heparin) 5,000 unit SQ Q12 [facility] Last Admin: 07/31/18 09:26 Dose: 5,000 unit Lidocaine (Lidoderm) 1 patch TOPICAL PRN PRN PRN Reason: Pain Loperamide HCl (Imodium) 2 mg PO PRN PRN PRN Reason: Diarrhea Last Admin: 07/31/18 09:35 Dose: 2 mg Non-Formulary Medication (Fluticasone/Salmeterol [Advair 250-50 Diskus]) 1 puff INHALATION BID [facility] Ondansetron HCl (Zofran) 4 mg IV Q6HP PRN PRN Reason: Nausea And Vomiting Last Admin: 07/31/18 07:53 Dose: 4 mg Fluticasone/Salmeterol (Advair 250-50 Diskus) 1 puff INH BID [facility] Sevelamer Carbonate (Renvela) 1,600 mg PO TIDCC [facility] Last Admin: 07/31/18 11:58 Dose: 1,600 mg Sodium Chloride (Saline Flush) 10 ml IV Q8 [facility] Last Admin: 07/31/18 13:49 Dose: 10 ml Trazodone HCl (Desyrel) 50 mg PO QHS [facility] Last Admin: 07/30/18 21:48 Dose: 50 mg Medical - PN: A/P - Time Spent With Patient Total time spent is greater than 50% in coordination of care (as documented) at patient's floor/unit and/or counseling patient: less than 15 minutes (1) Diarrhea Status: Chronic Assessment and plan: Continue loperamide as needed for diarrhea. She may require loperamide on a regular schedule to control diarrhea. Current Visit: Yes (2) Vomiting alone Status: Chronic Assessment and plan: GES pending. Will give ondansetron ODT as a scheduled daily dose in morning for prophylaxis. Current Visit: Yes Medical - PN: Qual - VTE Deep Vein Thrombosis/Pulmonary Embolism Present on Admission: No
[2018-07-31] MEDS: FAMOTIDINE 20 MG TABLET PO SCH (20:37)
[2018-07-31] MEDS: traZODone HCL 50 MG TABLET PO SCH (20:37)
[2018-08-01] MEDS: 0.9 % SODIUM CHLORIDE 10 ML SYRINGE IV SCH ×4 (00:18→20:37)
[2018-08-01] MEDS: ONDANSETRON 4 MG/2 ML VIAL IV PRN ×2 (03:41→13:11)
[2018-08-01] MEDS: LOPERAMIDE 2 MG CAPSULE PO PRN (03:42)
[2018-08-01] MEDS: ONDANSETRON ODT 4 MG TABLET SL SCH ×2 (06:14→10:21)
[2018-08-01 06:43] LABS: Basophils # (Auto) 0 K/mcL (0.0-0.3); Basophils % (Auto) 0.3 % (0.0-2.0); Eosinophils # (Auto) 0.2 K/mcL (0.0-0.7); Eosinophils % (Auto) 2.6 % (0.0-7.0); Granulocytes % (Auto) 66.1 % (38.0-78.0); Lymphocytes % (Auto) 22.4 % (15.5-49.0); Mean Cell Volume 82.1 fL (80.0-100.0); Mean Corpuscular HGB Conc 32.6 g/dL (31.0-36.0); Mean Corpuscular Hemoglobin 26.7 pg (26.0-34.0); Monocytes # (Auto) 0.8 K/mcL (0.1-0.9); Monocytes % (Auto) 8.6 % (1.0-12.0); Platelet Count 288 K/mcL (140-440); Red Cell Distribution Width 17.5 % (11.5-14.5)
[2018-08-01 07:09] LABS: ALT/SGPT 14 U/l (0-40); Albumin 2.9 gm/dL (3.2-5.2); Albumin/Globulin Ratio 0.9 (1.0-2.3); Alkaline Phosphatase 123 U/L (39-117); Bilirubin,Direct < 0.2 mg/dL (0.0-0.3); Blood Urea Nitrogen 23 mg/dl (8-23); Gamma Glutamyl Transpeptidase 15 U/L (5-36); Uric Acid 4.9 mg/dL (2.5-8.0)
--- NOTE | 2018-08-01 07:20 | Nephrology Progress Note ---
Subjective Patient information: Note initiated : 08/01/18 at 7:17 am Patient: Eam Vang 78 y/o F admitted on 07/30/18 for GI Problems. Chief Complaint: Nausea, vomiting and diarrhea Principal diagnosis: Nausea, vomiting and diarrhea Pertinent ROS: Weakness Nausea Vomiting Diarrhea Objective - Vital Signs Vital signs: Vital Signs Temp Pulse Resp BP BP Pulse Ox 08/01/18 06:29 98.4 F 94/56 08/01/18 04:00 98.0 F 78 20 122/62 93 08/01/18 00:00 98.1 F 80 20 109/59 92 07/31/18 20:55 98.2 F 90/52 07/31/18 19:13 98.2 F 78 20 90/52 92 07/31/18 15:44 97.8 F 85 14 122/87 92 07/31/18 12:00 97 F 81 16 114/74 93 07/31/18 08:00 98.5 F 78 16 112/71 95 Intake and Output 07/31/18 08/01/18 08/01/18 21:59 05:59 13:59 Intake Total 690 / 690 100 / 100 Output Total 200 / 200 Balance 490 / 490 100 / 100 Intake: Oral 690 / 690 100 / 100 Output: Void Amount 200 / 200 Other: Meal Dinner Percent of Meal Consumed 75% Feeding Ability Independent Intake & Output: Intake & Output 07/31/18 08/01/18 08/01/18 21:59 05:59 13:59 Intake Total 690 / 690 100 / 100 Output Total 200 / 200 Balance 490 / 490 100 / 100 Intake: Oral 690 / 690 100 / 100 Output: Void Amount 200 / 200 Other: Meal Dinner Percent of Meal Consumed 75% Feeding Ability Independent - General Appearance General appearance: appears started age, fatigue EENT: mucous membranes moist Neck: supple Respiratory: clear Cardiology: no edema Gastrointestinal: no tenderness Integumentary: warm and dry Neurologic: no focal deficit, alert and oriented x3 Musculoskeletal: no deformities Psychiatric: mood/affect appropriate, cooperative - Lab 08/01/18 05:51 08/01/18 05:51 Most recent lab results Calcium 7.9 mg/dl (8.6-10.4) L 08/01/18 05:51 Phosphorus 4.5 mg/dL (2.7-4.5) 08/01/18 05:51 Magnesium 1.4 mg/dL (1.6-2.5) L 08/01/18 05:51 Assessment and Plan (1) ESRD on peritoneal dialysis Ema Vang is a 78-year-old female with end-stage renal disease on chronic peritoneal dialysis (followed by Dr. 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 Work up: PD Fluid cell count on 07/30/18: Nucleated cells 202, 80% neutrophils, gram stain or culture not done. PD Fluid cell count on 07/31/18: Nucleated cells 62, 36% neutrophils; gram stain moderate WBC, no organisms; culture pending. Progress: Tolerated CCPD with total volume 7,200 ml, 4 exchanges of 1,800 ml, IPN, total time 9 hours. Discussion: Repeat PD fluid cell count and gram stain not consistent with acute peritonitis associated with peritoneal dialysis. Plan: Continue CCPD with total volume 7,200 ml, 4 exchanges of 1,800 ml, IPN, total time 9 hours. Status: Chronic Priority: Medium (2) Peritonitis associated with peritoneal dialysis Please see above Status: Ruled-out Priority: High (3) Anemia due to end stage renal disease Status: Chronic Priority: Medium
[2018-08-01] MEDS ORDERED: MAGNESIUM SULFATE 8.12 MEQ in DEXTROSE 5% IN WATER 50 ML IV ONE (07:27)
--- NOTE | 2018-08-01 07:28 | Internal Med Progress Note ---
Medical - PN: Subj Patient information: Note initiated : 08/01/18 at 7:25 am Service Date, if different from initiated Date: [] Patient: Ema Vang a 78 y/o F admitted on 07/30/18 for GI Problems. Chief Complaint: [] Interval history: Ms. Vang is a 78 year old F Who has acute on chronic diarrhea which is been occurring since April. She reports that this started after colonoscopy. She also had an EGD at that time and sounds like she had developed dilatation of her Schatzki ring. Small bowel biopsies were taken with nonspecific findings. Her diarrhea has been 5 or 6 times daily watery. As of lately she has had more at night with past 3 nights 6 times each night watery. She is been more lightheaded lately and was lightheaded at the dialysis center today. And was tachycardic in the low 100s. She said some gastrointestinal studies done over the past few months. She was on doxycycline for a while for small intestinal bacterial overgrowth but she states she did not see any improvement. She is also had a hard time keeping anything down since she has had increased diarrhea. Has had some nausea vomiting episodes over the past 3 days. She is able to keep liquids down just not solids. She denies any abdominal pain. No fevers or chills. 07/31 Diarrhea started up again yesterday late afternoon and evening. Had nausea and dry heaves this morning which is been common for her in the mornings. Week. Poor sleep last night. 08/01 1 small scant BM last night. Improving diarrhea. She had her typical nausea and some dry retching this morning. Went to [facility] this morning for gastric emptying study. Review of Systems: denies headache/fever/chills/nausea/vomiting/chest pain/cough/dyspnea. Otherwise see above. - Constitutional Vitals: Vital Signs Temp Pulse Resp BP Pulse Ox 98.4 F 78 20 94/56 93 08/01/18 06:29 08/01/18 04:00 08/01/18 04:00 08/01/18 06:29 08/01/18 04:00 Period Temp Pulse Resp BP Sys/Hartman Pulse Ox Last 24 Hr 97 F-98.5 F 78-85 14-20 90-122/52-87 92-95 Intake and Output 12/08/01/18 08/01/18 21:59 05:59 13:59 Intake Total 690 / 690 100 / 100 Output Total 200 / 200 Balance 490 / 490 100 / 100 Intake & Output: Intake & Output 07/31/18 08/01/18 08/01/18 21:59 05:59 13:59 Intake Total 690 / 690 100 / 100 Output Total 200 / 200 Balance 490 / 490 100 / 100 Intake: Oral 690 / 690 100 / 100 Output: Void Amount 200 / 200 Other: Meal Dinner Percent of Meal Consumed 75% Feeding Ability Independent Exam: General: Alert, Awake, No acute Distress Eyes/N/T: EOMI, Head/Neck: neck supple, CV: RRR, 2/6 SM normal s1/s2 Pulm: Clear b/l, no wheezing/rhonchi/rales Abd: soft, nontender, +BS x4 Ext: no clubbing/cyanosis, trace b/l LE edema Neuro: Alert, no focal deficits, moves all extremities, Skin: warm/dry Medical - PN: Obj Da - Labs CBC & Chem 7: 08/01/18 05:51 08/01/18 05:51 Labs: Abnormal Lab Results 08/01/18 08/01/18 07/31/18 05:51 05:51 06:11 WBC RBC 3.70 L Hgb 9.9 L Hct 30.4 L RDW 17.5 H Gran # [place] # (Auto) Carbon Dioxide 21 L Anion Gap BUN 25 H Creatinine 5.3 H* 5.9 H* Glucose 114 H Calcium 7.9 L 7.1 L Phosphorus 5.3 H Magnesium 1.4 L 1.1 L Alkaline Phosphatase 123 H Lactate Dehydrogenase 255 H Total Protein 5.0 L Albumin 2.9 L 2.4 L Albumin/Globulin Ratio 0.9 L 0.9 L Triglycerides 195 H 204 H 07/31/18 07/30/18 07/30/18 06:11 13:56 13:56 WBC 12.5 H RBC 3.26 L 3.95 L Hgb 8.7 L 10.6 L Hct 26.6 L 32.0 L RDW 17.6 H 17.8 H Gran # 8.5 H [place] # (Auto) 1.0 H Carbon Dioxide Anion Gap 19.0 H BUN 29 H Creatinine 6.9 H* Glucose Calcium 7.7 L Phosphorus 5.4 H Magnesium 1.2 L Alkaline Phosphatase 132 H Lactate Dehydrogenase 265 H Total Protein Albumin 3.0 L Albumin/Globulin Ratio 0.9 L Triglycerides 201 H Meds: Medications Acetaminophen (Tylenol) 650 mg PO Q6HP PRN PRN Reason: PAIN/FEVER > 101 Amlodipine Besylate (Norvasc) 5 mg PO DAILY PRN PRN Reason: Blood Pressure - High Atorvastatin Calcium (Lipitor) 20 mg PO QDAY [facility] Last Admin: 07/31/18 09:26 Dose: 20 mg Carvedilol (Coreg) 25 mg PO BIDCC [facility] Last Admin: 07/31/18 17:31 Dose: 25 mg Cinacalcet (Sensipar) 60 mg PO DAILY [facility] Last Admin: 07/31/18 09:26 Dose: 60 mg Cinacalcet (Sensipar) 60 mg PO HS [facility] Last Admin: 07/31/18 20:37 Dose: 60 mg Famotidine (Pepcid) 20 mg PO HS [facility] Last Admin: 07/31/18 20:37 Dose: 20 mg Gentamicin Sulfate (Gentamicin Crm 0.1%) 1 dose TOPICAL QD [facility] Heparin Sodium (Porcine) (Heparin) 5,000 unit SQ Q12 [facility] Last Admin: 07/31/18 20:37 Dose: 5,000 unit Lidocaine (Lidoderm) 1 patch TOPICAL PRN PRN PRN Reason: Pain Loperamide HCl (Imodium) 2 mg PO PRN PRN PRN Reason: Diarrhea Last Admin: 08/01/18 03:42 Dose: 2 mg Ondansetron HCl (Zofran) 4 mg IV Q6HP PRN PRN Reason: Nausea And Vomiting Last Admin: 08/01/18 03:41 Dose: 4 mg Ondansetron HCl (Zofran Odt) 4 mg SL DAILY [facility] Last Admin: 08/01/18 06:14 Dose: 4 mg Fluticasone/Salmeterol (Advair 250-50 Diskus) 1 puff INH BID [facility] Sevelamer Carbonate (Renvela) 1,600 mg PO TIDCC [facility] Last Admin: 07/31/18 17:31 Dose: 1,600 mg Sodium Chloride (Saline Flush) 10 ml IV Q8 [facility] Last Admin: 08/01/18 06:14 Dose: 10 ml Trazodone HCl (Desyrel) 50 mg PO QHS [facility] Last Admin: 07/31/18 20:37 Dose: 50 mg Medical - PN: A/P - Time Spent With Patient Total time spent is greater than 50% in coordination of care (as documented) at patient's floor/unit and/or counseling patient: - Narrative A/P Narrative: A: *Acute on chronic diarrhea: -had egd/colon in April with nonspecific findings, known finding of Schatzki ring -CT A/P no acute path -c. diff neg *Near Syncope: 2/2 volume depletion from above *ESRD w/PD: follows with Dr. Russ *DM: *COPD (not on home O2): *Anxiety/depression *HTN/HLD *GERD P: -stools studies pending -GI following, urine study pending -loperamide, zofran -Nephrology following -full liquid diet -pending GES @ [facility] -ppx: heparin/pepcid Medical - PN: Qual - VTE Deep Vein Thrombosis/Pulmonary Embolism Present on Admission: No
[2018-08-01] MEDS: SEVELAMER 800 MG TABLET PO SCH ×3 (10:20→17:39)
[2018-08-01] MEDS: FLUTICASONE/SALMETEROL 250/50 INHALER #14 INH SCH ×5 (10:20→20:40)
[2018-08-01] MEDS: CARVEDILOL 12.5 MG TABLET PO SCH ×2 (10:20→17:39)
[2018-08-01] MEDS: GENTAMICIN CRM 0.1% TUBE 15GM TOPICAL SCH ×3 (10:21→18:49)
[2018-08-01] MEDS: ATORVASTATIN 20 MG TABLET PO SCH (10:29)
[2018-08-01] MEDS: HEPARIN 5,000 UNIT/ML VIAL SQ SCH ×2 (10:29→20:34)
[2018-08-01] MEDS: CINACALCET 30 MG TABLET PO SCH ×2 (10:29→20:36)
--- NOTE | 2018-08-01 17:03 | Discharge Summary ---
Medical - DS: Prov Patient information: Note initiated : 08/01/18 at 5:01 pm Service Date, if different from initiated Date: [] Patient: Ema Vang 78 y/o F admitted on 07/30/18 for GI Problems. Chief Complaint: [] Date of admission: 07/30/18 12:42 Discharge date: 08/02/18 Primary care physician: Sky Ceja Consults: 07/30/18 13:22 Consult to Physician [CONS] Routine Comment: Consulting Provider: Fany Russ Reason For Exam: Physician to Consult 07/30/18 13:24 Consult to Physician [CONS] Routine Comment: Consulting Provider: Kaitlynn Magallanes Reason For Exam: Physician to Consult Medical - DS: Meds - Discharge Medications Prescriptions: Loperamide [Imodium] 2 mg PO PRN PRN #30 cap PRN Reason: Diarrhea Ondansetron HCl [Zofran ODT] 4 mg SL DAILY #30 tab Active and Home Medications: Home Medications atorvastatin 40 mg tablet 20 mg PO QDAY tab 01/29/15 [History Confirmed Last Taken 07/29/18] carvedilol 25 mg tablet 25 mg PO BID tab 01/29/15 [History Confirmed 07/30/18 Last Taken 07/29/18] fluticasone 250 mcg-salmeterol 50 mcg/dose blistr powdr for inhalation 1 puff INHALATION BID #1 each 08/28/15 [Rx Confirmed 07/30/18 Last Taken Unknown] gentamicin 0.1 % topical cream 1 applic TOPICAL QDAY #30 g 10/26/17 [Rx Confirmed 07/30/18 Last Taken 07/30/18] sevelamer carbonate 800 mg tablet 1,600 mg PO TID 90 Days #540 tab 10/30/17 [Rx Confirmed 07/30/18 Last Taken 07/30/18] amlodipine 5 mg tablet 10 mg PO QDAY #180 tab 03/12/18 [Rx Confirmed 07/30/18 Last Taken 07/29/18] B complex 11-folic acid 1 mg-C 100 mg-biotin 300 mcg-zinc 50 mg tablet 1 tab PO QDAY #90 tab 05/30/18 [Rx Confirmed 07/30/18 Last Taken 07/29/18] trazodone 50 mg tablet 50 mg PO QHS #90 tab 07/09/18 [Rx Confirmed 07/30/18 Last Taken 07/29/18] Advair 250-50 Diskus 1 inh INH BID 07/30/18 [History Confirmed 07/30/18 Last Taken 07/29/18] Cinacalcet [Sensipar] 60 mg PO DAILY 07/30/18 [History Confirmed 07/30/18 Last Taken 07/30/18] Furosemide [Lasix] 40 mg PO DAILY 07/30/18 [History Confirmed 07/30/18 Last Taken 07/29/18] Furosemide [Lasix] 120 mg PO 1800 07/30/18 [History Confirmed 07/30/18 Last Taken 07/29/18] Lidocaine 1 patch TOPICAL PRN PRN 07/30/18 [History Confirmed 07/30/18 Last Taken Unknown] Lisinopril [Zestril] 1 tab PO BID 07/30/18 [History Confirmed 07/30/18 Last Taken 07/29/18] Sensipar 30 mg PO HS 07/30/18 [History Confirmed 07/30/18 Last Taken 07/29/18] Zofran 8 mg PO Q8HP PRN 07/30/18 [History Confirmed 07/30/18 Last Taken 07/29/18 ] Home Medications atorvastatin 40 mg tablet 20 mg PO QDAY tab 01/29/15 [History Confirmed Last Taken 07/29/18] carvedilol 25 mg tablet 25 mg PO BID tab 01/29/15 [History Confirmed 07/30/18 Last Taken 07/29/18] fluticasone 250 mcg-salmeterol 50 mcg/dose blistr powdr for inhalation 1 puff INHALATION BID #1 each 08/28/15 [Rx Confirmed 07/30/18 Last Taken Unknown] gentamicin 0.1 % topical cream 1 applic TOPICAL QDAY #30 g 10/26/17 [Rx Confirmed 07/30/18 Last Taken 07/30/18] sevelamer carbonate 800 mg tablet 1,600 mg PO TID 90 Days #540 tab 10/30/17 [Rx Confirmed 07/30/18 Last Taken 07/30/18] amlodipine 5 mg tablet 10 mg PO QDAY #180 tab 03/12/18 [Rx Confirmed 07/30/18 Last Taken 07/29/18] B complex 11-folic acid 1 mg-C 100 mg-biotin 300 mcg-zinc 50 mg tablet 1 tab PO QDAY #90 tab 05/30/18 [Rx Confirmed 07/30/18 Last Taken 07/29/18] trazodone 50 mg tablet 50 mg PO QHS #90 tab 07/09/18 [Rx Confirmed 07/30/18 Last Taken 07/29/18] Advair 250-50 Diskus 1 inh INH BID 07/30/18 [History Confirmed 07/30/18 Last Taken 07/29/18] Cinacalcet [Sensipar] 60 mg PO DAILY 07/30/18 [History Confirmed 07/30/18 Last Taken 07/30/18] Furosemide [Lasix] 40 mg PO DAILY 07/30/18 [History Confirmed 07/30/18 Last Taken 07/29/18] Furosemide [Lasix] 120 mg PO 1800 07/30/18 [History Confirmed 07/30/18 Last Taken 07/29/18] Lidocaine 1 patch TOPICAL PRN PRN 07/30/18 [History Confirmed 07/30/18 Last Taken Unknown] Lisinopril [Zestril] 1 tab PO BID 07/30/18 [History Confirmed 07/30/18 Last Taken 07/29/18] Sensipar 30 mg PO HS 07/30/18 [History Confirmed 07/30/18 Last Taken 07/29/18] Zofran 8 mg PO Q8HP PRN 07/30/18 [History Confirmed 07/30/18 Last Taken 07/29/18 ] Loperamide [Imodium] 2 mg PO PRN PRN #30 cap 08/02/18 [Rx Last Taken Unknown] Ondansetron HCl [Zofran ODT] 4 mg SL DAILY #30 tab 08/02/18 [Rx Last Taken Unknown] Medical - DS: Hosp Hospital course: Ms. Vang is a 78 year old F Who has acute on chronic diarrhea which is been occurring since April. She reports that this started after colonoscopy. She also had an EGD at that time and sounds like she had developed dilatation of her Schatzki ring. Small bowel biopsies were taken with nonspecific findings. Her diarrhea has been 5 or 6 times daily watery. As of lately she has had more at night with past 3 nights 6 times each night watery. She is been more lightheaded lately and was lightheaded at the dialysis center today. And was tachycardic in the low 100s. She said some gastrointestinal studies done over the past few months. She was on doxycycline for a while for small intestinal bacterial overgrowth but she states she did not see any improvement. She is also had a hard time keeping anything down since she has had increased diarrhea. Has had some nausea vomiting episodes over the past 3 days. She is able to keep liquids down just not solids. She denies any abdominal pain. No fevers or chills. 07/31 Diarrhea started up again yesterday late afternoon and evening. Had nausea and dry heaves this morning which is been common for her in the mornings. Week. Poor sleep last night. 08/01 1 small scant BM last night. Improving diarrhea. She had her typical nausea and some dry retching this morning. Went to [facility] this morning for gastric emptying study. 08/02 GES negative, stool formed overnight. f/u with GI outpt. stable for d/c. Did have some nausea vomiting or this morning which is typical for her. When I visited her she was resting comfortably eating her breakfast. stable for d/c Discharge diagnosis: Acute on chronic diarrhea volume depletion near syncope Secondary discharge diagnosis: End-stage renal disease diabetes COPD hypertension anxiety depression - Time Spent with Patient Total time spent providing and/or coordinating discharge services: Greater than 30 minutes Medical - DS: Exam - Constitutional Vitals: Vital Signs Temp Pulse Resp BP BP Pulse Ox 08/01/18 12:00 97.0 F 89 20 120/57 96 08/01/18 09:54 96.3 F L 77 20 118/63 95 08/01/18 06:29 98.4 F 94/56 08/01/18 04:00 98.0 F 78 20 122/62 93 08/01/18 00:00 98.1 F 80 20 109/59 92 07/31/18 20:55 98.2 F 90/52 07/31/18 19:13 98.2 F 78 20 90/52 92 Intake and Output 08/01/18 08/01/18 08/01/18 05:59 13:59 21:59 Intake Total 100 / 100 52 / 52 Output Total 300 / 300 Balance 100 / 100 -248 / -248 Intake: IV / Oral 100 / 100 Output: Emesis 300 / 300 Other: # Voids 1 Medical - DS: Data Labs on day of discharge: Labs from last 24 hours 08/01/18 08/01/18 08/01/18 05:51 05:51 01:40 WBC 8.9 RBC 3.70 L Hgb 9.9 L Hct 30.4 L MCV 82.1 MCH 26.7 MCHC 32.6 RDW 17.5 H Plt Count 288 MPV 8.1 Gran % 66.1 Lymph % (Auto) 22.4 [place] % (Auto) 8.6 Eos % (Auto) 2.6 Baso % (Auto) 0.3 Gran # 5.9 Lymph # (Auto) 2.0 [place] # (Auto) 0.8 Eos # (Auto) 0.2 Baso # (Auto) 0 Sodium 135 Potassium 3.9 Chloride 98 Carbon Dioxide 22 Anion Gap 15.0 BUN 23 Creatinine 5.3 H* GFR Calculation 7 Glucose 114 H Uric Acid 4.9 Calcium 7.9 L Phosphorus 4.5 Magnesium 1.4 L Total Bilirubin 0.3 Direct Bilirubin < 0.2 GGT 15 AST 17 ALT 14 Alkaline Phosphatase 123 H Lactate Dehydrogenase 255 H Total Protein 6.1 Albumin 2.9 L Globulin 3.2 Albumin/Globulin Ratio 0.9 L Triglycerides 195 H Urine Total Volume Pending Urine 5-HIAA 24 Hour Pending Ur 5-HIAA /gm Creat Pending Preliminary micro results at discharge 07/31/18 15:08 Anaerobic Culture - Preliminary Peritoneal Dialysis Fluid Aerobic Culture - Preliminary 07/30/18 15:39 Stool Culture - Preliminary Stool Medical - DS: A/P - Patient/Caregiver Discharge Instructions Activity: increase activity as tolerated Diet: Renal/Consistent Carbs Additional Instructions: Follow up with Kaitlynn Magallanes the week of Aug 15-2018. Hospital staff to make appointment. Prescriptions: Loperamide [Imodium] 2 mg PO PRN PRN #30 cap PRN Reason: Diarrhea Ondansetron HCl [Zofran ODT] 4 mg SL DAILY #30 tab - Follow up Plan Follow up with: Kaitlynn Magallanes ARNP [Nurse Practitioner] - Fany Russ MD [Physician] - Disposition: Home, Self-Care Prognosis: Fair Rehab Potential: Fair Medical - DS: Qual - VTE Deep Vein Thrombosis/Pulmonary Embolism Present on Admission: No
--- NOTE | 2018-08-01 17:05 | Internal Med Progress Note ---
Medical - PN: Subj Patient information: Note initiated : 08/01/18 at 5:03 pm Service Date, if different from initiated Date: [] Patient: Ema Vang 78 y/o F admitted on 07/30/18 for GI Problems. Chief Complaint: [nausea, vomiting and diarrhea] Interval history: One episode of emesis despite taking Zofran. No BM since taking Imodium and is concerned about becoming constipated. Draft report of gastric emptying scan was normal. Deneis headache. No prior history of migraine. - Constitutional Vitals: Vital Signs Temp Pulse Resp BP Pulse Ox 97.0 F 89 20 120/57 96 08/01/18 12:00 08/01/18 12:00 08/01/18 12:00 08/01/18 12:00 08/01/18 12:00 Period Temp Pulse Resp BP Sys/Hartman Pulse Ox Last 24 Hr 96.3 F-98.4 F 77-89 20-20 90-122/52-63 92-96 Intake and Output 08/01/18 08/01/18 08/01/18 05:59 13:59 21:59 Intake Total 100 / 100 52 / 52 Output Total 300 / 300 Balance 100 / 100 -248 / -248 Intake & Output: Intake & Output 08/01/18 08/01/18 08/01/18 05:59 13:59 21:59 Intake Total 100 / 100 52 / 52 Output Total 300 / 300 Balance 100 / 100 -248 / -248 Intake: IV 52 / 52 Oral 100 / 100 Output: Emesis 300 / 300 Other: # Voids 1 General appearance: average body habitus, cooperative, no acute distress - Head Head exam: Present: atraumatic, normal inspection - Respiratory Respiratory exam: Absent: accessory muscle use - Skin Skin exam: Present: dry, warm Medical - PN: Obj Da - Labs CBC & Chem 7: 08/01/18 05:51 08/01/18 05:51 Labs: Abnormal Lab Results 08/01/18 08/01/18 07/31/18 05:51 05:51 06:11 WBC RBC 3.70 L Hgb 9.9 L Hct 30.4 L RDW 17.5 H Gran # [place] # (Auto) Carbon Dioxide 21 L Anion Gap BUN 25 H Creatinine 5.3 H* 5.9 H* Glucose 114 H Calcium 7.9 L 7.1 L Phosphorus 5.3 H Magnesium 1.4 L 1.1 L Alkaline Phosphatase 123 H Lactate Dehydrogenase 255 H Total Protein 5.0 L Albumin 2.9 L 2.4 L Albumin/Globulin Ratio 0.9 L 0.9 L Triglycerides 195 H 204 H 07/31/18 07/30/18 07/30/18 06:11 13:56 13:56 WBC 12.5 H RBC 3.26 L 3.95 L Hgb 8.7 L 10.6 L Hct 26.6 L 32.0 L RDW 17.6 H 17.8 H Gran # 8.5 H [place] # (Auto) 1.0 H Carbon Dioxide Anion Gap 19.0 H BUN 29 H Creatinine 6.9 H* Glucose Calcium 7.7 L Phosphorus 5.4 H Magnesium 1.2 L Alkaline Phosphatase 132 H Lactate Dehydrogenase 265 H Total Protein Albumin 3.0 L Albumin/Globulin Ratio 0.9 L Triglycerides 201 H Meds: Medications Acetaminophen (Tylenol) 650 mg PO Q6HP PRN PRN Reason: PAIN/FEVER > 101 Amlodipine Besylate (Norvasc) 5 mg PO DAILY PRN PRN Reason: Blood Pressure - High Atorvastatin Calcium (Lipitor) 20 mg PO QDAY [facility] Last Admin: 08/01/18 10:29 Dose: 20 mg Carvedilol (Coreg) 25 mg PO BIDCC [facility] Last Admin: 08/01/18 10:20 Dose: Not Given Cinacalcet (Sensipar) 60 mg PO DAILY [facility] Last Admin: 08/01/18 10:29 Dose: 60 mg Cinacalcet (Sensipar) 60 mg PO HS [facility] Last Admin: 07/31/18 20:37 Dose: 60 mg Famotidine (Pepcid) 20 mg PO HS [facility] Last Admin: 07/31/18 20:37 Dose: 20 mg Gentamicin Sulfate (Gentamicin Crm 0.1%) 1 dose TOPICAL QD [facility] Last Admin: 08/01/18 10:21 Dose: Not Given Heparin Sodium (Porcine) (Heparin) 5,000 unit SQ Q12 [facility] Last Admin: 08/01/18 10:29 Dose: 5,000 unit Lidocaine (Lidoderm) 1 patch TOPICAL PRN PRN PRN Reason: Pain Loperamide HCl (Imodium) 2 mg PO PRN PRN PRN Reason: Diarrhea Last Admin: 08/01/18 03:42 Dose: 2 mg Ondansetron HCl (Zofran) 4 mg IV Q6HP PRN PRN Reason: Nausea And Vomiting Last Admin: 08/01/18 13:11 Dose: 4 mg Ondansetron HCl (Zofran Odt) 4 mg SL DAILY [facility] Last Admin: 08/01/18 10:21 Dose: Not Given Fluticasone/Salmeterol (Advair 250-50 Diskus) 1 puff INH BID [facility] Last Admin: 08/01/18 10:33 Dose: 1 puff Sevelamer Carbonate (Renvela) 1,600 mg PO TIDCC [facility] Last Admin: 08/01/18 10:29 Dose: 1,600 mg Sodium Chloride (Saline Flush) 10 ml IV Q8 [facility] Last Admin: 08/01/18 13:11 Dose: 10 ml Trazodone HCl (Desyrel) 50 mg PO QHS [facility] Last Admin: 07/31/18 20:37 Dose: 50 mg Medical - PN: A/P - Time Spent With Patient Total time spent is greater than 50% in coordination of care (as documented) at patient's floor/unit and/or counseling patient: less than 15 minutes (1) Diarrhea Status: Chronic Assessment and plan: Continue loperamide as needed for diarrhea. She may require loperamide on a regular schedule to control diarrhea. Will follow up on neuroendocine tumor work up in clinic after discharge. Current Visit: Yes (2) Vomiting alone Status: Chronic Assessment and plan: No evidence of diabetic gastroparesis. Will plan on imaging of head to check for intracranial pathology as cause of nausea--will arrange as an outpatient. Reasonable to continue Zofran to control nausea. A low dose tricyclic may be helpful. Current Visit: Yes Medical - PN: Qual - VTE Deep Vein Thrombosis/Pulmonary Embolism Present on Admission: No
[2018-08-01] MEDS: traZODone HCL 50 MG TABLET PO SCH (20:35)
[2018-08-01] MEDS: FAMOTIDINE 20 MG TABLET PO SCH (20:35)
--- NOTE | 2018-08-02 07:09 | Nephrology Progress Note ---
Subjective Patient information: Note initiated : 08/02/18 at 7:07 am Patient: Ema Vang 78 y/o F admitted on 07/30/18 for GI Problems. Chief Complaint: Nausea, vomiting and diarrhea Principal diagnosis: Nausea, vomiting and diarrhea Pertinent ROS: Weakness Nausea Vomiting Diarrhea Objective - Vital Signs Vital signs: Vital Signs Temp Pulse Resp BP BP Pulse Ox 08/02/18 03:25 98.4 F 81 20 131/61 93 08/01/18 23:30 98.6 F 71 18 107/48 91 08/01/18 20:42 98.5 F 135/62 08/01/18 19:50 98.5 F 77 20 135/60 93 08/01/18 16:00 97.8 F 82 20 136/61 93 08/01/18 12:00 97.0 F 89 20 120/57 96 08/01/18 09:54 96.3 F L 77 20 118/63 95 Intake and Output 08/01/18 08/02/18 08/02/18 21:59 05:59 13:59 Intake Total 180 / 180 150 / 150 Output Total 100 / 100 50 / 50 Balance 80 / 80 100 / 100 Intake: Oral 180 / 180 150 / 150 Output: Void Amount 100 / 100 50 / 50 Other: Meal Dinner Percent of Meal Consumed 100% Feeding Ability Independent Urine Appearance Clear Clear Urine Color Straw Pale Urine Odor Normal Normal Stool Size Large Moderate Stool Color Brown Brown Stool Consistency Soft Soft Formed # Bowel Movements 1 Weight 157 lb Intake & Output: Intake & Output 08/01/18 08/02/18 08/02/18 21:59 05:59 13:59 Intake Total 180 / 180 150 / 150 Output Total 100 / 100 50 / 50 Balance 80 / 80 100 / 100 Weight 157 lb Intake: Oral 180 / 180 150 / 150 Output: Void Amount 100 / 100 50 / 50 Other: Meal Dinner Percent of Meal Consumed 100% Feeding Ability Independent Urine Appearance Clear Clear Urine Color Straw Pale Urine Odor Normal Normal Stool Size Large Moderate Stool Color Brown Brown Stool Consistency Soft Soft Formed # Bowel Movements 1 - General Appearance General appearance: appears started age, fatigue EENT: mucous membranes moist Neck: supple Respiratory: clear Cardiology: no edema Gastrointestinal: no tenderness Integumentary: warm and dry Neurologic: no focal deficit, alert and oriented x3 Musculoskeletal: no deformities Psychiatric: mood/affect appropriate, cooperative - Lab 08/01/18 05:51 08/01/18 05:51 Most recent lab results Calcium 7.9 mg/dl (8.6-10.4) L 08/01/18 05:51 Phosphorus 4.5 mg/dL (2.7-4.5) 08/01/18 05:51 Magnesium 1.4 mg/dL (1.6-2.5) L 08/01/18 05:51 Assessment and Plan (1) ESRD on peritoneal dialysis Ema Vang is a 78-year-old female with end-stage renal disease on chronic peritoneal dialysis (followed by Dr. 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 Work up: PD Fluid cell count on 07/30/18: Nucleated cells 202, 80% neutrophils, gram stain or culture not done. PD Fluid cell count on 07/31/18: Nucleated cells 62, 36% neutrophils; gram stain moderate WBC, no organisms; culture pending. Plan: Continue CCPD with total volume 7,200 ml, 4 exchanges of 1,800 ml, IPN, total time 9 hours. Status: Chronic Priority: Medium (2) Anemia due to end stage renal disease Status: Chronic Priority: Medium
[2018-08-02] MEDS: [UNRECOGNIZED DRUG - OTHER] INHALATION SCH (07:14)
[2018-08-02] MEDS: SALMETEROL P INHALATION SCH (07:14)
[2018-08-02] MEDS: FLUTICASONE INHALATION SCH (07:14)
[2018-08-02] MEDS: CARVEDILOL 12.5 MG TABLET PO SCH (07:53)
[2018-08-02] MEDS: SEVELAMER 800 MG TABLET PO SCH (07:53)
[2018-08-02] MEDS: ONDANSETRON ODT 4 MG TABLET SL SCH (07:54)
[2018-08-02] MEDS: LOPERAMIDE 2 MG CAPSULE PO PRN (08:03)
[2018-08-02] MEDS: ATORVASTATIN 20 MG TABLET PO SCH (08:52)
[2018-08-02] MEDS: CINACALCET 30 MG TABLET PO SCH (08:52)
[2018-08-02] MEDS: FLUTICASONE/SALMETEROL 250/50 INHALER #14 INH SCH (08:52)
[2018-08-02] MEDS: HEPARIN 5,000 UNIT/ML VIAL SQ SCH (08:53)
[2018-08-02] MEDS: 0.9 % SODIUM CHLORIDE 10 ML SYRINGE IV SCH (08:53)
[2018-08-06 06:16] LABS: Gastrin 37 pg/mL (< OR = 100)
[2018-08-06 10:18] LABS: Sodium, Feces 87.7
[2018-08-10 14:47] LABS: Vasoactive Intest. Polypeptide < 50 pg/mL (<75)
== END 2018-08-02 10:00 | disposition home or self-care (01) | DRG 391 ==
LOC: MEDSUR 12:42
PROVIDERS: ADMIT Internal Medicine; ATTEND Internal Medicine
CPT/HCPCS: 87324; 87449; 99231; J1644; J2405; J3475; J7030; J7060

== ENCOUNTER 2018-09-29 10:20 | Inpatient (IN) ==
--- NOTE | 2018-09-29 10:53 | Nephrology Consult Note ---
History of Present Illness - Reason for Consult Patient information: Note initiated : 09/29/18 at 10:51 am Patient: Ema Vang 78 y/o F admitted on for abdominal pain. Consult date: 09/29/18 end stage renal disease Requesting physician: Coy Banda - Chief Complaint Abdominal pain - History of Present Illness Ema Vang is a 78-year-old female with end-stage renal disease on chronic peritoneal dialysis (followed by Dr. 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 She reported sudden onset abdominal pain (at 8:30PM last night), generalized, but mostly lower abdominal, constant not crampy, never resolved since started, associated with nausea and vomiting (not coffee ground or bloody), no diarrhea or constipation. Last BM yesterday light brown. PD fluid clear. No problems with PD dwell or drain. urine looked somewhat bloody but no dysuria. She has been on Prednisone taper off for arthritis. No other new medications. Recent work up: EGD on 05/04/18: Schatzki's ring. Gastric polyp. Query celiac. Colonoscopy on 05/04/18: Colonic polyps. Query microscopic colitis. CT Abdomen and Plevis on 07/30/18: Pneumoperitoneum. This is probably iatrogenic secondary to peritoneal dialysis catheter. Multiple large renal cysts consistent with polycystic kidney disease. No hydronephrosis . Mild diverticulosis. No evidence for diverticulitis. Extensive calcified a therosclerotic disease. Review of Systems Constitutional: anorexia, lethargy Nose, mouth and throat: no nasal congestion, no sore throat Cardiovascular: no chest pain, no palpatations Respiratory: no cough, no dyspnea Gastrointestinal: abdominal pain, nausea, vomiting, no coffee ground emesis, no constipation, no diarrhea, no hematemesis, no hematochezia, no loose stools, no melena Genitourinary: no dysuria, no hematuria Musculoskeletal: no back pain, no joint swelling Integumentary: no rash, no wounds Neurological: no confusion, no focal weakness Psychiatric: no anxiety, no panic attacks Endocrine: no cold intolerance, no heat intolerance Hematologic/Lymphatic: no easy bleeding, no easy bruising Allergic/Immunologic: no tongue swelling, no uticaria Past History Past medical history: Medical History (Last Updated 07/31/18 @ 07:01 by Kavon Gorman MD) Abdominal pain (Acute) Urinary retention (Acute) Hypertensive renal disease (Chronic) Proteinuria (Chronic) Edema (Chronic) Secondary hyperparathyroidism of renal origin (Chronic) Diabetes mellitus (Chronic) Hx of hysterectomy (Acute) Vitamin D deficiency (Acute) Sinusitis, chronic (Acute) Seborrheic keratosis (Acute) Overweight (Acute) Osteoporosis (Acute) Obesity (Acute) Insomnia (Chronic) Hypertensive heart disease, benign w/chronic kidney disease stage 1-4 (Acute) Hyperlipidemia (Acute) Hypertension (Acute) Gastroesophageal reflux (Acute) Diabetes mellitus, type II (Acute) Depression (Acute) COPD (chronic obstructive pulmonary disease) (Acute) Anxiety (Acute) Past surgical history: Past Surgical History Hx of esophagogastroduodenoscopy (Acute) Past family history: Family History mother Rheumatoid arthritis Malignant neoplasm of colon brother Diabetes mellitus Morbid obesity sister x2 Diabetes mellitus sister Parkinson's Disease Pneumonia, Onset Age: 59 Sister Renal failure Past social history: Social History No Social History Section defined Medications and Allergies Home Medications Medication Instructions Recorded Confirmed Type carvedilol 25 mg tablet 25 mg PO BID tab 01/29/15 09/29/18 History fluticasone 250 mcg-salmeterol 50 1 puff INHALATION BID #1 each 08/28/15 09/29/18 Rx mcg/dose blistr powdr for inhalation gentamicin 0.1 % topical cream 1 applic TOPICAL QDAY #30 g 10/26/17 09/29/18 Rx sevelamer carbonate 800 mg tablet 1,600 mg PO TID 90 Days #540 tab 10/30/17 09/29/18 Rx B complex 11-folic acid 1 mg-C 100 1 tab PO QDAY #90 tab 05/30/18 07/30/18 Rx mg-biotin 300 mcg-zinc 50 mg tablet trazodone 50 mg tablet 50 mg PO QHS #90 tab 07/09/18 09/29/18 Rx Cinacalcet [Sensipar] 60 mg PO DAILY 07/30/18 09/29/18 History Furosemide [Lasix] 40 mg PO DAILY 07/30/18 07/30/18 History Lidocaine 1 patch TOPICAL PRN PRN 07/30/18 09/29/18 History Lisinopril [Zestril] 1 tab PO BID 07/30/18 09/29/18 History Sensipar 30 mg PO HS 07/30/18 09/29/18 History Zofran 8 mg PO Q8HP PRN 07/30/18 09/29/18 History Loperamide [Imodium] 2 mg PO PRN PRN #30 cap 08/02/18 09/29/18 Rx Ondansetron [Zofran ODT] 4 mg SL DAILY #30 tab 08/02/18 09/29/18 Rx atorvastatin 20 mg tablet 20 mg PO QDAY #90 tab 08/27/18 09/29/18 Rx amlodipine 5 mg tablet 10 mg PO QDAY #180 tab 09/07/18 09/29/18 Rx furosemide 80 mg tablet 120 mg PO BID #270 tab 09/27/18 09/29/18 Rx Allergies Allergy/AdvReac Type Severity Reaction Status Date / Time hydrocodone Allergy Mild Vomiting Verified 09/29/18 10:23 Amoxicillin [From Augmentin] Allergy Unknown Hives Verified 09/29/18 10:23 ciprofloxacin [From Cipro] Allergy Unknown Unknown Verified 09/29/18 10:23 clavulanic acid Allergy Unknown Hives Verified 09/29/18 10:23 [From Augmentin] tramadol AdvReac Unknown Unknown Verified 09/29/18 10:23 codeine sulfate Allergy Unknown Vomiting Uncoded 03/10/15 14:49 Exam - Vital Signs Vital signs: Temp Pulse Resp BP Pulse Ox 97.3 F 98 H 18 151/73 96 09/29/18 10:21 09/29/18 10:21 09/29/18 10:21 09/29/18 10:21 09/29/18 10:21 - General Appearance General appearance: appears started age, fatigue EENT: mucous membranes moist Neck: supple Respiratory: clear Cardiology: no edema Gastrointestinal: tenderness Integumentary: warm and dry Neurologic: no focal deficit, alert and oriented x3 Musculoskeletal: no deformities Psychiatric: mood/affect appropriate, cooperative Results - Lab Results 09/29/18 10:30 09/29/18 10:30 Assessment and Plan (1) Abdominal pain Suspected cyst rupture/hemorrhage due to suuden onset abdominal pain and suspected cyst infection due to leukocytosis. Acute pancreatitis considered due to lipase elevation. Work up: Labs on 09/29/18: PD Fluid cell count: Nucleated cells 16, 10% neutrophils Gram stain no polys, no organism Culture pending CT KUB on 09/29/18: History of polycystic kidney disease and renal failure. Extensive atherosclerotic disease. No abdominal aortic aneurysm. No acute or focal abnormality Plan: Admission for pain control and IV antibiotics. Ciprofloxacin is the preferred antibiotic for cyst infections. Status: Acute Priority: High (2) ESRD on peritoneal dialysis Continue CCPD with total volume 7,200 ml, 4 exchanges of 1,800 ml, 1.5%, total time 9 hours. Status: Chronic Priority: Medium
[2018-09-29 11:10] LABS: Basophils # (Auto) 0 K/mcL (0.0-0.3); Basophils % (Auto) 0.1 % (0.0-2.0); Eosinophils # (Auto) 0 K/mcL (0.0-0.7); Eosinophils % (Auto) 0.2 % (0.0-7.0); Granulocytes % (Auto) 74.7 % (38.0-78.0); Lymphocytes # (Auto) 2.9 K/mcL (1.5-4.8); Mean Cell Volume 83.8 fL (80.0-100.0); Mean Corpuscular HGB Conc 32.4 g/dL (31.0-36.0); Monocytes # (Auto) 2.3 K/mcL (0.1-0.9); Platelet Count 381 K/mcL (140-440); RBC 3.74 M/mcL (4.00-5.20); Red Cell Distribution Width 15.8 % (11.5-14.5)
[2018-09-29] MEDS ORDERED: ACETAMINOPHEN 650 MG/65 ML BOTTLE IV ONE (11:17)
[2018-09-29] MEDS ORDERED: ONDANSETRON 4 MG/2 ML VIAL IV ONE (11:19)
--- NOTE | 2018-09-29 11:22 | Emergency Department Note ---
Abdominal Pain HPI - General Chief Complaint: Abdominal Pain Stated Complaint: abdominal pain Time Seen by Provider: 09/29/18 10:37 Source: patient Mode of arrival: ambulatory Limitations: no limitations - History of Present Illness HPI Narrative: 78-year-old female with end-stage renal disease, and has been using peritoneal dialysis for the last 3 years. She is followed by Dr. Russ. She reports that last night at 2030 she had sudden onset of sharp pain in the right left lower abdomen. She reports that this was before she began the peritoneal dialysis. She did stop the dialysis early this morning at 0130. She rates the pain 10 out of 10 on a 0-10 numerical pain scale. She reports nausea without vomiting. She did have a bowel movement last night that was yellow and soft. She does still produce urine, and she reports that she may have seen a small amount of blood in the urine. She denies pain or burning with urination. She denies cough, maurilio rtness of breath, chest pain, or difficulty breathing. She denies any fevers, but reports that she does feel chilled at times. Past medical history includes hyperparathyroidism of renal origin, chronic anemia due to kidney disease, and coronary artery disease with calcifications are seen on CT. She does have type 2 diabetes, hypertension, hyperlipidemia, COPD. Past surgical history includes hysterectomy, and lumbar fusion. - Related Data Home Medications Medication Instructions Recorded Confirmed carvedilol 25 mg tablet 25 mg PO BID tab 01/29/15 07/30/18 Advair 250-50 Diskus 1 inh INH BID 07/30/18 07/30/18 Cinacalcet [Sensipar] 60 mg PO DAILY 07/30/18 07/30/18 Furosemide [Lasix] 40 mg PO DAILY 07/30/18 07/30/18 Lidocaine 1 patch TOPICAL PRN PRN 07/30/18 07/30/18 Lisinopril [Zestril] 1 tab PO BID 07/30/18 07/30/18 Sensipar 30 mg PO HS 07/30/18 07/30/18 Zofran 8 mg PO Q8HP PRN 07/30/18 07/30/18 Previous Rx's Medication Instructions Recorded fluticasone 250 mcg-salmeterol 50 1 puff INHALATION BID #1 each 08/28/15 mcg/dose blistr powdr for inhalation gentamicin 0.1 % topical cream 1 applic TOPICAL QDAY #30 g 10/26/17 sevelamer carbonate 800 mg tablet 1,600 mg PO TID 90 Days #540 tab 10/30/17 B complex 11-folic acid 1 mg-C 100 1 tab PO QDAY #90 tab 05/30/18 mg-biotin 300 mcg-zinc 50 mg tablet trazodone 50 mg tablet 50 mg PO QHS #90 tab 07/09/18 Loperamide [Imodium] 2 mg PO PRN PRN #30 cap 08/02/18 Ondansetron [Zofran ODT] 4 mg SL DAILY #30 tab 08/02/18 atorvastatin 20 mg tablet 20 mg PO QDAY #90 tab 08/27/18 amlodipine 5 mg tablet 10 mg PO QDAY #180 tab 09/07/18 furosemide 80 mg tablet 120 mg PO BID #270 tab 09/27/18 Allergies Allergy/AdvReac Type Severity Reaction Status Date / Time hydrocodone Allergy Mild Vomiting Verified 09/29/18 10:23 Amoxicillin [From Augmentin] Allergy Unknown Hives Verified 09/29/18 10:23 ciprofloxacin [From Cipro] Allergy Unknown Unknown Verified 09/29/18 10:23 clavulanic acid Allergy Unknown Hives Verified 09/29/18 10:23 [From Augmentin] tramadol AdvReac Unknown Unknown Verified 09/29/18 10:23 codeine sulfate Allergy Unknown Vomiting Uncoded 03/10/15 14:49 Review of Systems Constitutional: Reports: chills. Denies: fever Eyes: Denies: vision change ENT ED: Denies: ear pain, throat pain Cardiovascular: Denies: chest pain, palpitations Respiratory: Denies: cough, shortness of breath Gastrointestinal: Reports: as per HPI Genitourinary: Reports: hematuria. Denies: dysuria, urgency, frequency, discharge Musculoskeletal: Denies: back pain, joint swelling Integumentary: Denies: rash, lesions Neurological: Denies: headache, weakness Psychiatric: Denies: anxiety, depression Endocrine: Denies: fatigue, heat or cold intolerance Hematological/Lymphatic: Denies: easy bleeding, easy bruising Abdominal Pain PMH - Past Medical History [facility] Narrative: Type 2 diabetes, Hypertension, coronary artery disease, Hyperlipidemia, COPD, kidney disease, chronic anemia due to kidney disease, hyperparathyroidism of renal origin Medical history: Reports: other (Type 2 diabetes, Hypertension, coronary artery disease, Hyperlipidemia, COPD, kidney disease, chronic anemia due to kidney disease, hyperparathyroidism of renal origin) - Social History Smoking status: Former smoker Physical Exam Limitations: no limitations General appearance: alert, in no apparent distress Head: atraumatic, normocephalic Eye: Present: normal appearance, PERRL, EOMI. Absent: scleral icterus, conjunctival injection ENT: mucous membranes moist Chest: Present: normal inspection, symmetric chest wall rise. Absent: tenderness Respiratory: Present: normal lung sounds bilaterally. Absent: respiratory distress, wheezes, stridor, accessory muscle use, prolonged expiratory phase Cardiovascular: Present: regular rate, normal rhythm. Absent: systolic murmur, diastolic murmur Abdominal: Present: soft, tenderness (right lower quadrant, periumbilical, left lower quadrant), normal bowel sounds. Absent: guarding, rebound, rigidity, psoas sign, obturator sign Abdominal tenderness: Present: RLQ, LLQ, ayah umbilical Extremities: Present: normal capillary refill. Absent: pedal edema, pretibial edema, calf tenderness Back: Present: normal inspection. Absent: tenderness, CVA tenderness (R), CVA tenderness (L) Neurological: Present: alert, oriented X3 Psychiatric: Present: normal affect, normal mood Skin: Present: warm, dry, intact, normal color Course - Reevaluation(s) Time: 11:54 (White count is 20.7. Lab at bedside to obtain the blood cultures, lactic acid, sedimentation rate, lipase ordered. Patient is in no distress. Vital signs are stable.) Vital Signs Temperature 97.3 F 09/29/18 10:21 Pulse Rate 98 H 09/29/18 10:21 Respiratory Rate 18 09/29/18 10:21 Blood Pressure 151/73 09/29/18 10:21 Pulse Oximetry (%) 96 09/29/18 10:21 Temperature 97.3 F 09/29/18 10:21 Pulse Rate 92 H 09/29/18 13:01 Respiratory Rate 20 09/29/18 13:01 Blood Pressure 150/70 09/29/18 13:01 Pulse Oximetry (%) 91 09/29/18 13:01 Abdominal Pain - MDM Narrative Medical decision making narrative: Dr. Gorman was at the bedside and spoke with both Dr. Danielle and Sherif Benavides regarding patient. Patient does have continued pain. She did receive acetaminophen here in the emergency department for pain, and 1 mg of morphine. Her pain is currently 5 out of 10. She does not want to have any additional pain medication, and she states that she does not tolerate opioids well may make her feel weird. The patient's lipase is elevated at 247. Her white count is elevated at 20.7. Dr. Gorman suspect that it could possibly be renal cyst infection, and the patient will need admitted for further observation and Cipro 250mg IV BID. - Lab Data Result diagrams: 09/29/18 10:30 09/29/18 10:30 Lab Results 09/29/18 09/29/18 09/29/18 Range/Units 10:30 10:30 10:30 WBC 20.7 H (4.5-11.0) K/mcL RBC 3.74 L (4.00-5.20) M/mcL Hgb 10.1 L (12.0-15.0) g/dL Hct 31.3 L (36.0-48.0) % MCV 83.8 (80.0-100.0) fL MCH 27.1 (26.0-34.0) pg MCHC 32.4 (31.0-36.0) g/dL RDW 15.8 H (11.5-14.5) % Plt Count 381 (140-440) K/mcL MPV 7.8 (7.4-10.4) fL Gran % 74.7 (38.0-78.0) % Lymph % (Auto) 14.0 L (15.5-49.0) % Rowan % (Auto) 11.0 (1.0-12.0) % Eos % (Auto) 0.2 (0.0-7.0) % Baso % (Auto) 0.1 (0.0-2.0) % Gran # 15.5 H (1.8-8.0) K/mcL Lymph # (Auto) 2.9 (1.5-4.8) K/mcL Rowan # (Auto) 2.3 H (0.1-0.9) K/mcL Eos # (Auto) 0 (0.0-0.7) K/mcL Baso # (Auto) 0 (0.0-0.3) K/mcL Band Neutrophils % ESR 39 H (0-20) mm/hr VBG Lactic Acid (0.5-2.0) mmol/L Sodium 137 (133-145) mmol/L Potassium 3.7 (3.3-5.1) mmol/L Chloride 95 L (96-108) mmol/L Carbon Dioxide 25 (22-30) mmol/L Anion Gap 17.0 H (8-16) BUN 81 H (8-23) mg/dl Creatinine 5.4 H* (0.6-1.1) mg/dl GFR Calculation 7 Glucose 123 H (70-105) mg/dL Calcium 8.4 L (8.6-10.4) mg/dl Total Bilirubin 0.3 (0.0-1.0) mg/dL AST 12 (0-37) U/l ALT 11 (0-40) U/l Alkaline Phosphatase 143 H (39-117) U/L Total Protein 7.0 (5.9-8.4) gm/dL Albumin 4.1 (3.2-5.2) gm/dL Globulin 2.9 (2.2-3.7) gm/dL Albumin/Globulin Ratio 1.4 (1.0-2.3) Lipase (7-60) U/L Urine Color Urine Appearance Urine pH (5.0-9.0) Ur Specific [place] (1.000-1.035) Urine Protein (NEG) mg/dL Urine Glucose (UA) (NEG) mg/dL Urine Ketones (NEG) mg/dL Urine Occult Blood (<0.03) mg/dL Urine Nitrate (NEG) Urine Bilirubin (NEG) mg/dL Urine Urobilinogen (NEG) mg/dL Ur Leukocyte Esterase (NEG) /uL Urine RBC (0-1) /hpf Urine WBC (0-4) /hpf Ur Squamous Epith Cells (0-4) /hpf Urine Bacteria (0) /hpf Ur Culture Indicated? Fluid Source Fluid Color Fluid Appearance Fluid RBC /cumm Fluid Tot Cell Count Fluid Nucleated Cells /cumm Fluid Neutrophils % Fluid Lymphocytes % Fluid Monocytes Fluid Eosinophils Fluid Basophils Fluid Plasma Cells Fluid Macrophages % Fld Mesothelial Cells % 09/29/18 09/29/18 09/29/18 Range/Units 10:30 10:30 10:50 WBC (4.5-11.0) K/mcL RBC (4.00-5.20) M/mcL Hgb (12.0-15.0) g/dL Hct (36.0-48.0) % MCV (80.0-100.0) fL MCH (26.0-34.0) pg MCHC (31.0-36.0) g/dL RDW (11.5-14.5) % Plt Count (140-440) K/mcL MPV (7.4-10.4) fL Gran % (38.0-78.0) % Lymph % (Auto) (15.5-49.0) % Rowan % (Auto) (1.0-12.0) % Eos % (Auto) (0.0-7.0) % Baso % (Auto) (0.0-2.0) % Gran # (1.8-8.0) K/mcL Lymph # (Auto) (1.5-4.8) K/mcL Rowan # (Auto) (0.1-0.9) K/mcL Eos # (Auto) (0.0-0.7) K/mcL Baso # (Auto) (0.0-0.3) K/mcL Band Neutrophils % Not Reportable ESR (0-20) mm/hr VBG Lactic Acid (0.5-2.0) mmol/L Sodium (133-145) mmol/L Potassium (3.3-5.1) mmol/L Chloride (96-108) mmol/L Carbon Dioxide (22-30) mmol/L Anion Gap (8-16) BUN (8-23) mg/dl Creatinine (0.6-1.1) mg/dl GFR Calculation Glucose (70-105) mg/dL Calcium (8.6-10.4) mg/dl Total Bilirubin (0.0-1.0) mg/dL AST (0-37) U/l ALT (0-40) U/l Alkaline Phosphatase (39-117) U/L Total Protein (5.9-8.4) gm/dL Albumin (3.2-5.2) gm/dL Globulin (2.2-3.7) gm/dL Albumin/Globulin Ratio (1.0-2.3) Lipase 247 H (7-60) U/L Urine Color Yellow Urine Appearance Hazy Urine pH 6.0 (5.0-9.0) Ur Specific [place] 1.013 (1.000-1.035) Urine Protein 100 A (NEG) mg/dL Urine Glucose (UA) Negative (NEG) mg/dL Urine Ketones Neg (NEG) mg/dL Urine Occult Blood >=1.0 A (<0.03) mg/dL Urine Nitrate Neg (NEG) Urine Bilirubin Neg (NEG) mg/dL Urine Urobilinogen Neg (NEG) mg/dL Ur Leukocyte Esterase Neg (NEG) /uL Urine RBC > 182 H (0-1) /hpf Urine WBC 5 H (0-4) /hpf Ur Squamous Epith Cells 7 H (0-4) /hpf Urine Bacteria Few A (0) /hpf Ur Culture Indicated? No Fluid Source Fluid Color Fluid Appearance Fluid RBC /cumm Fluid Tot Cell Count Fluid Nucleated Cells /cumm Fluid Neutrophils % Fluid Lymphocytes % Fluid Monocytes Fluid Eosinophils Fluid Basophils Fluid Plasma Cells Fluid Macrophages % Fld Mesothelial Cells % 09/29/18 09/29/18 Range/Units 11:10 12:03 WBC (4.5-11.0) K/mcL RBC (4.00-5.20) M/mcL Hgb (12.0-15.0) g/dL Hct (36.0-48.0) % MCV (80.0-100.0) fL MCH (26.0-34.0) pg MCHC (31.0-36.0) g/dL RDW (11.5-14.5) % Plt Count (140-440) K/mcL MPV (7.4-10.4) fL Gran % (38.0-78.0) % Lymph % (Auto) (15.5-49.0) % Rowan % (Auto) (1.0-12.0) % Eos % (Auto) (0.0-7.0) % Baso % (Auto) (0.0-2.0) % Gran # (1.8-8.0) K/mcL Lymph # (Auto) (1.5-4.8) K/mcL Rowan # (Auto) (0.1-0.9) K/mcL Eos # (Auto) (0.0-0.7) K/mcL Baso # (Auto) (0.0-0.3) K/mcL Band Neutrophils % ESR (0-20) mm/hr VBG Lactic Acid 1.3 (0.5-2.0) mmol/L Sodium (133-145) mmol/L Potassium (3.3-5.1) mmol/L Chloride (96-108) mmol/L Carbon Dioxide (22-30) mmol/L Anion Gap (8-16) BUN (8-23) mg/dl Creatinine (0.6-1.1) mg/dl GFR Calculation Glucose (70-105) mg/dL Calcium (8.6-10.4) mg/dl Total Bilirubin (0.0-1.0) mg/dL AST (0-37) U/l ALT (0-40) U/l Alkaline Phosphatase (39-117) U/L Total Protein (5.9-8.4) gm/dL Albumin (3.2-5.2) gm/dL Globulin (2.2-3.7) gm/dL Albumin/Globulin Ratio (1.0-2.3) Lipase (7-60) U/L Urine Color Urine Appearance Urine pH (5.0-9.0) Ur Specific [place] (1.000-1.035) Urine Protein (NEG) mg/dL Urine Glucose (UA) (NEG) mg/dL Urine Ketones (NEG) mg/dL Urine Occult Blood (<0.03) mg/dL Urine Nitrate (NEG) Urine Bilirubin (NEG) mg/dL Urine Urobilinogen (NEG) mg/dL Ur Leukocyte Esterase (NEG) /uL Urine RBC (0-1) /hpf Urine WBC (0-4) /hpf Ur Squamous Epith Cells (0-4) /hpf Urine Bacteria (0) /hpf Ur Culture Indicated? Fluid Source Peritoneal Fluid Color Colorless Fluid Appearance Clear Fluid RBC < 19153 /cumm Fluid Tot Cell Count 71 Fluid Nucleated Cells 16 /cumm Fluid Neutrophils 10 % Fluid Lymphocytes 42 % Fluid Monocytes Not Reportable Fluid Eosinophils Not Reportable Fluid Basophils Not Reportable Fluid Plasma Cells Not Reportable Fluid Macrophages 38 % Fld Mesothelial Cells 10 % - Radiology Data Ordering Physician: Kavon Gorman M.D. Date of Service: 09/29/18 Procedure(s): CT KUB (kidney stone) Accession Number(s): [id number] CLINICAL INFORMATION: Abdominal pain. History of polycystic kidney disease and renal failure TECHNIQUE: Axial noncontrast enhanced images through the abdomen and pelvis. Sagittal and coronal reformatted images. COMPARISON: Previous CT scan dated 07/30/2018 FINDINGS: Lung bases are negative. No parenchymal infiltrate or mass. There is a calcified right lower lobe granuloma No pleural fluid. There is no pericardial fluid. Severe calcification of the abdominal aorta. No abdominal aortic aneurysm. There is a peritoneal dialysis catheter within the peritoneal space. Liver is negative to the limits of noncontrast enhanced examination. Liver contour is smooth. No evidence for cirrhosis. Gallbladder is present. No calcified gallstones. There are calcifications within the spleen consistent with old granulomatous disease. No splenomegaly. Negative pancreas. No pancreatic mass. No peripancreatic abnormality. There are multiple large renal cysts. Patient has a history of polycystic kidney disease and renal failure. There are vascular calcifications within the kidneys. No new mass identified. No hydronephrosis. No evidence for appendicitis. Colon is negative. No detectable mass. There are sigmoid diverticula. No evidence for diverticulitis. Uterus is not identified consistent with hysterectomy. No adnexal mass. No free intraperitoneal fluid. No intra-abdominal abscess. No pneumoperitoneum. No biliary or portal venous gas. No pneumatosis. Patient has undergone previous posterior spinal fusion from L2 through L4. Sacrum and pelvis are negative. No fracture. No lytic lesion. IMPRESSION: 1. History of polycystic kidney disease and renal failure 2. Extensive atherosclerotic disease. No abdominal aortic aneurysm 3. No acute or focal abnormality Interpreted and Authenticated by: Kolby Dover 09/29/18 [id number] [employer]: <Electronically signed by Kolby Dover M.D. in OV> 09/29/18 1253 CC: Kavon Gorman M.D.; Sky Ceja M.D.; Kolby Dover M.D.~ Disposition Pt seen by GENERAL MILLING SUPERINTENDENT/PA only: No Clinical Impression: ESRD on peritoneal dialysis, Abdominal pain Disposition: Xfer As Inpt ([facility]) Condition: Fair Referrals: Sky Ceja MD [Primary Care Provider] -
[2018-09-29 11:23] LABS: Appearance,Urine HAZY; Bacteria,Urine FEW /hpf (0); Bilirubin,Urine NEG (NEG); Color,Urine YELLOW; Glucose,Urine (UA) NEGATIVE (NEG); Leukocyte Esterase,Urine NEG /uL (NEG); Protein,Urine 100 mg/dL (NEG); Specific Gravity,Urine 1.013 (1.000-1.035); Urine Blood >=1.0 mg/dL (<0.03); Urine RBC > 182 /hpf (0-1); Urine Squamous Epithelial Cell 7 /hpf (0-4); Urine WBC 5 /hpf (0-4); Urobilinogen,Urine NEG (NEG)
[2018-09-29 11:33] LABS: ALT/SGPT 11 U/l (0-40); Albumin 4.1 gm/dL (3.2-5.2); Albumin/Globulin Ratio 1.4 (1.0-2.3); Alkaline Phosphatase 143 U/L (39-117); Blood Urea Nitrogen 81 mg/dl (8-23)
--- NOTE | 2018-09-29 12:21 | Emergency Department Note ---
ED Note Addendum Note Addendum: Patient seen and discussed with Kyle, agree with the assessment and treatment plan.
[2018-09-29 12:45] LABS: Appearance, Body Fluid CLEAR; Color, Body Fluid COLORLESS; RBC, Body Fluid < 50000 /cumm
--- NOTE | 2018-09-29 12:56 | Cat Scan Report ---
CLINICAL INFORMATION: Abdominal pain. History of polycystic kidney disease and renal failure TECHNIQUE: Axial noncontrast enhanced images through the abdomen and pelvis. Sagittal and coronal reformatted images. COMPARISON: Previous CT scan dated 07/30/2018 FINDINGS: Lung bases are negative. No parenchymal infiltrate or mass. There is a calcified right lower lobe granuloma No pleural fluid. There is no pericardial fluid. Severe calcification of the abdominal aorta. No abdominal aortic aneurysm. There is a peritoneal dialysis catheter within the peritoneal space. Liver is negative to the limits of noncontrast enhanced examination. Liver contour is smooth. No evidence for cirrhosis. Gallbladder is present. No calcified gallstones. There are calcifications within the spleen consistent with old granulomatous disease. No splenomegaly. Negative pancreas. No pancreatic mass. No peripancreatic abnormality. There are multiple large renal cysts. Patient has a history of polycystic kidney disease and renal failure. There are vascular calcifications within the kidneys. No new mass identified. No hydronephrosis. No evidence for appendicitis. Colon is negative. No detectable mass. There are sigmoid diverticula. No evidence for diverticulitis. Uterus is not identified consistent with hysterectomy. No adnexal mass. No free intraperitoneal fluid. No intra-abdominal abscess. No pneumoperitoneum. No biliary or portal venous gas. No pneumatosis. Patient has undergone previous posterior spinal fusion from L2 through L4. Sacrum and pelvis are negative. No fracture. No lytic lesion. IMPRESSION: 1. History of polycystic kidney disease and renal failure 2. Extensive atherosclerotic disease. No abdominal aortic aneurysm 3. No acute or focal abnormality Interpreted and Authenticated by: Kolby Dover 09/29/18
[2018-09-29 12:59] LABS: Lipase 247 U/L (7-60)
[2018-09-29 13:37] LABS: Mesothelial,Body Fluid 10 %; Total Cell Count Body Fld 71
[2018-09-29 14:10] LABS: Anisocytosis 1+ (NONE SEEN); Band Neutrophils % 1 % (0-10); Hypochromasia 1+ (NONE SEEN); Lymphocytes % 20 % (15-49); Monocytes % (Manual) 4 % (1-12); Platelet Estimate NORMAL (NORMAL); RBC Morphology ABNORM (NORMAL); Segmented Neutrophils % 75 % (38-78)
[2018-09-29] MEDS ORDERED: CIPROFLOXACIN 400 MG/200 ML BAG IV ONE (14:14)
--- NOTE | 2018-09-29 14:34 | Internal Med History&Physical ---
Medical - H&P: HPI Patient information: Note initiated : 09/29/18 at 2:27 pm Service Date, if different from initiated Date: [] Patient: Ema Vang a 78 y/o F admitted on for abdominal pain. Chief Complaint: [] History of present illness: Ms. Vang is a 78 year old F with a history of end-stage renal disease on peritoneal dialysis, diabetes, COPD, depression anxiety, chronic diarrhea who presents with abdominal pain acutely. Patient reports that last night while starting to watching TV while she was sitting on the couch developed sudden severe pain in her abdominal lower quadrants bilaterally. Pain is described as a crampy pain she thought she had gas or had to go to the bathroom, rated at 10 out of 10. She took a pain medication which she said was oxycodone and was able to fall asleep but she was only asleep for a few hours. And still had pain. This morning she still had pain which is not rhythm improved and thus brought her in the ER. In the ED she did receive some pain medications by the time I saw her she said her pain was down to a 6 and appears comfortable in bed. She was feeling fine up to this point no recent illnesses no sick contacts no trauma or sudden twisting of her trunk. She did note that she did have some sharp flank pain on that right side for the past 3 weeks and did see her primary care provider for it. In the ED workup showed vital signs are essentially stable with a heart rate 92- 98 other parameters within normal limits. She did have a leukocytosis, again was afebrile. Lactic acid was within normal limits, urinalysis unremarkable for an infectious signs, but did have RBCs present. Noncontrast CT abdomen pelvis showed no acute pathology, no evidence of free intraperitoneal fluid intra-abdominal abscess or pneumoperitoneum or pneumatosis. Did show already known multiple large renal cysts. Dr. Alarcon saw the patient in the ED. Patient denies any epigastric pain. Lipase mildly elevated at 247. Concern for possible rupture of 1 of her renal cysts, antibiotic started given leukocytosis and concern for possibly infected cyst. She had a normal bowel movement last night. She did take a suppository last night after the pain started because that she previously stated felt like she needed to have a bowel movement but was not able to go. Review of Systems: denies headache/fever/chills/nausea/vomiting/chest pain/cough/dyspnea/diarrhea. Otherwise see above. Medical - H&P: PMH Medical history: Medical History Abdominal pain (Acute) Urinary retention (Acute) Hypertensive renal disease (Chronic) Proteinuria (Chronic) Edema (Chronic) Secondary hyperparathyroidism of renal origin (Chronic) Diabetes mellitus (Chronic) Chronic kidney disease, stage V (Chronic) Vitamin D deficiency (Acute) Sinusitis, chronic (Acute) Seborrheic keratosis (Acute) Renal osteodystrophy (Acute) Overweight (Acute) Osteoporosis (Acute) Obesity (Acute) Insomnia (Chronic) Hyposmolality and/or hyponatremia (Acute) Disorder of magnesium metabolism (Acute) Hypertensive heart disease, benign w/chronic kidney disease stage 1-4 (Acute) Hyperparathyroidism, primary (Acute) Hyperparathyroidism (Acute) Hyperlipidemia (Acute) Hyperkalemia (Acute) Hypercalcemia (Acute) Hypertension (Acute) Gastroesophageal reflux (Acute) Diabetes mellitus, type II (Acute) Depression (Acute) COPD (chronic obstructive pulmonary disease) (Acute) Chronic kidney disease, stage IV (severe) (Acute) Anxiety (Acute) Anemia, iron deficiency (Acute) 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) Acute renal disease (Acute) Past Surgical History Hx of hysterectomy (Acute) Hx of esophagogastroduodenoscopy (Acute) Low back surgery Family History mother Rheumatoid arthritis Malignant neoplasm of colon brother Diabetes mellitus Morbid obesity sister x2 Diabetes mellitus sister Parkinson's Disease Pneumonia, Onset Age: 59 Sister Renal failure Social History Quit smoking 10 years ago denies alcohol use does not use a cane or walker lives at home with her Medical - H&P: Meds Home Medications Medication Instructions Recorded Confirmed Type carvedilol 25 mg tablet 25 mg PO BID tab 01/29/15 09/29/18 History fluticasone 250 mcg-salmeterol 50 1 puff INHALATION BID #1 each 08/28/15 09/29/18 Rx mcg/dose blistr powdr for inhalation gentamicin 0.1 % topical cream 1 applic TOPICAL QDAY #30 g 10/26/17 09/29/18 Rx sevelamer carbonate 800 mg tablet 1,600 mg PO TID 90 Days #540 tab 10/30/17 09/29/18 Rx B complex 11-folic acid 1 mg-C 100 1 tab PO QDAY #90 tab 05/30/18 07/30/18 Rx mg-biotin 300 mcg-zinc 50 mg tablet trazodone 50 mg tablet 50 mg PO QHS #90 tab 07/09/18 09/29/18 Rx Cinacalcet [Sensipar] 60 mg PO DAILY 07/30/18 09/29/18 History Furosemide [Lasix] 40 mg PO DAILY 07/30/18 07/30/18 History Lidocaine 1 patch TOPICAL PRN PRN 07/30/18 09/29/18 History Lisinopril [Zestril] 1 tab PO BID 07/30/18 09/29/18 History Sensipar 30 mg PO HS 07/30/18 09/29/18 History Zofran 8 mg PO Q8HP PRN 07/30/18 09/29/18 History Loperamide [Imodium] 2 mg PO PRN PRN #30 cap 08/02/18 09/29/18 Rx Ondansetron [Zofran ODT] 4 mg SL DAILY #30 tab 08/02/18 09/29/18 Rx atorvastatin 20 mg tablet 20 mg PO QDAY #90 tab 08/27/18 09/29/18 Rx amlodipine 5 mg tablet 10 mg PO QDAY #180 tab 09/07/18 09/29/18 Rx furosemide 80 mg tablet 120 mg PO BID #270 tab 09/27/18 09/29/18 Rx Allergies Allergy/AdvReac Type Severity Reaction Status Date / Time hydrocodone Allergy Mild Vomiting Verified 09/29/18 10:23 Amoxicillin [From Augmentin] Allergy Unknown Hives Verified 09/29/18 10:23 ciprofloxacin [From Cipro] Allergy Unknown Unknown Verified 09/29/18 10:23 clavulanic acid Allergy Unknown Hives Verified 09/29/18 10:23 [From Augmentin] tramadol AdvReac Unknown Unknown Verified 09/29/18 10:23 codeine sulfate Allergy Unknown Vomiting Uncoded 03/10/15 14:49 Medical - H&P: Exam - Constitutional Vitals: Temp Pulse Resp BP Pulse Ox 97.3 F 94 H 18 153/72 96 09/29/18 10:21 09/29/18 13:31 09/29/18 13:31 09/29/18 13:31 09/29/18 13:31 Exam: General: Alert, Awake, No acute Distress Eyes/N/T: EOMI, PEERL, DMM Head/Neck: neck supple, normocephalic atraumatic CV: regular, 2/6 SM normal s1/s2 Pulm: Clear b/l, no wheezing/rhonchi/rales Abd: soft, TTP RUQ/RLQ/Epigastrum, +BS x4, no guarding/rigidity Ext: no clubbing/cyanosis, trace RLE and 1+ LLE edema Neuro: Alert, no focal deficits, moves all extremities, CN 2-12 grossly intact, symmetrical strength b/l upper/lower, sensations intact b/l upper/lower Skin: warm/dry Medical - H&P: Reslt - Labs CBC & Chem 7: 09/29/18 10:30 09/29/18 10:30 Labs: Short CBC 09/29/18 Range/Units 10:30 WBC 20.7 H (4.5-11.0) K/mcL Hgb 10.1 L (12.0-15.0) g/dL Hct 31.3 L (36.0-48.0) % Plt Count 381 (140-440) K/mcL BMP 09/29/18 10:30 Sodium 137 Potassium 3.7 Chloride 95 L Carbon Dioxide 25 BUN 81 H Creatinine 5.4 H* Glucose 123 H Calcium 8.4 L Liver Function 09/29/18 Range/Units 10:30 Total Bilirubin 0.3 (0.0-1.0) mg/dL AST 12 (0-37) U/l ALT 11 (0-40) U/l Alkaline Phosphatase 143 H (39-117) U/L Albumin 4.1 (3.2-5.2) gm/dL Urine 09/29/18 Range/Units 10:50 Urine Color Yellow Urine Appearance Hazy Urine pH 6.0 (5.0-9.0) Ur Specific [place] 1.013 (1.000-1.035) Urine Protein 100 A (NEG) mg/dL Urine Glucose (UA) Negative (NEG) mg/dL - Impressions CT abdomen pelvis no acute pathology. Urinalysis with RBCs Medical - H&P: A/P - Narrative A/P Narrative: A: *Acute right quad and LLQ abd pain: ?rupture of a renal cyst -lipase mildy elevated but pain not typical, noncontrast CT not helpful *Leukocytosis: reactive vs infectious. ?infected cyst vs GB vs other *ESRD 2/2 Polycystic Kidney dz w/PD: follows with Dr. Russ *DM: *COPD (not on home O2): *Anxiety/depression *HTN/HLD *GERD P: -clear diet -f/u am labs -f/u abd u/s and lipase -Nephrology following -rocephin, pending BC -check pct -ppx: heparin/pepcid
[2018-09-29 14:35] LABS: Nucleated Cells,Body Fld 16 /cumm
[2018-09-29] MEDS ORDERED: ACETAMINOPHEN 325 MG TABLET PO PRN (15:14)
[2018-09-29] MEDS ORDERED: BISACODYL 10 MG SUPP.RECT PR PRN (15:14)
[2018-09-29] MEDS ORDERED: cefTRIAXone 1 GM in DEXTROSE 5% IN WATER 50 ML IV SCH (15:14)
[2018-09-29] MEDS ORDERED: LOPERAMIDE 2 MG CAPSULE PO PRN (15:14)
[2018-09-29] MEDS ORDERED: LIDOCAINE PATCH TOPICAL PRN (15:14)
[2018-09-29] MEDS: cefTRIAXone 1 GM VIAL IV SCH (16:22)
[2018-09-29] MEDS: 0.9 % SODIUM CHLORIDE 10 ML SYRINGE IV SCH ×3 (16:23→22:00)
[2018-09-29] MEDS: ONDANSETRON 4 MG/2 ML VIAL IV PRN ×2 (16:26→21:56)
[2018-09-29] MEDS: SEVELAMER 800 MG TABLET PO SCH ×2 (16:36→18:11)
[2018-09-29] MEDS: INSULIN LISPRO 1 UNIT/0.01 ML UNIT SQ SCH ×2 (18:07→22:21)
[2018-09-29] MEDS: CARVEDILOL 12.5 MG TABLET PO SCH (18:12)
--- NOTE | 2018-09-29 20:03 | Ultrasound Report ---
CLINICAL INFORMATION: Right upper quadrant pain TECHNIQUE: Grayscale and color flow Doppler spectral imaging COMPARISON: None. FINDINGS: Liver measures 16 cm maximally. Liver is mildly echogenic. No focal solid mass. There is a benign 7 mm cyst in the left lobe. Liver contour is smooth. There is no ascites. Benign 4 mm gallbladder wall polyp. No discrete stones. No biliary sludge. Gallbladder wall is not significantly thickened. There is trace pericholecystic fluid. Patient did not seem tender when scanned over the gallbladder. No dilated bile ducts. Common bile duct measures 4 mm. Spleen is not evaluated. There is normal hepatopedal portal venous flow Visualized portions of the pancreas are negative. IMPRESSION: 1. Negative examination for cholelithiasis 2. Trace pericholecystic fluid. No other abnormality. Interpreted and Authenticated by: Kolby Dover 09/29/18
[2018-09-29] MEDS ORDERED: CINACALCET 30 MG TABLET PO SCH (21:00)
[2018-09-30] MEDS: FLUTICASONE/SALMETEROL 250/50 INHALER #14 INH SCH ×3 (01:00→21:29)
[2018-09-30] MEDS: FAMOTIDINE 20 MG TABLET PO SCH ×2 (01:02→21:28)
[2018-09-30] MEDS: DOCUSATE SODIUM 100 MG CAPSULE PO SCH ×3 (01:02→21:29)
[2018-09-30] MEDS: traZODone HCL 50 MG TABLET PO SCH ×2 (01:02→21:28)
[2018-09-30] MEDS: LISINOPRIL 5 MG TABLET PO SCH ×3 (01:03→21:28)
[2018-09-30] MEDS: ATORVASTATIN 20 MG TABLET PO SCH ×2 (01:03→21:29)
[2018-09-30] MEDS: SEVELAMER 800 MG TABLET PO SCH ×4 (01:04→21:26)
[2018-09-30 06:32] LABS: Basophils # (Auto) 0 K/mcL (0.0-0.3); Basophils % (Auto) 0.3 % (0.0-2.0); Eosinophils # (Auto) 0.1 K/mcL (0.0-0.7); Eosinophils % (Auto) 0.4 % (0.0-7.0); Granulocytes % (Auto) 71.1 % (38.0-78.0); Lymphocytes # (Auto) 2.2 K/mcL (1.5-4.8); Mean Cell Volume 84.3 fL (80.0-100.0); Mean Corpuscular HGB Conc 32.2 g/dL (31.0-36.0); Monocytes # (Auto) 1.5 K/mcL (0.1-0.9); Monocytes % (Auto) 11.2 % (1.0-12.0); Platelet Count 305 K/mcL (140-440); RBC 3.22 M/mcL (4.00-5.20); Red Cell Distribution Width 15.8 % (11.5-14.5)
[2018-09-30 06:51] LABS: ALT/SGPT 8 U/l (0-40); Albumin 3.4 gm/dL (3.2-5.2); Albumin/Globulin Ratio 1.5 (1.0-2.3); Alkaline Phosphatase 120 U/L (39-117); Bilirubin,Direct < 0.2 mg/dL (0.0-0.3); Blood Urea Nitrogen 75 mg/dl (8-23); Gamma Glutamyl Transpeptidase 17 U/L (5-36); Lipase 148 U/L (7-60); Uric Acid 7.7 mg/dL (2.5-8.0)
--- NOTE | 2018-09-30 07:11 | Nephrology Progress Note ---
Subjective Patient information: Note initiated : 09/30/18 at 7:09 am Patient: Ema Vang 78 y/o F admitted on 09/29/18 for abdominal pain. Chief Complaint: Abdominal pain Principal diagnosis: Abdominal pain Pertinent ROS: Abdominal pain, resolved. Nausea, resolved. No flank pain No diarrhea No dysuria No edema Objective - Vital Signs Vital signs: Vital Signs Temp Pulse Pulse Resp BP BP Pulse Ox 09/30/18 06:37 97.8 F 16 123/60 90 09/30/18 04:33 99.3 F H 80 22 112/59 90 09/29/18 23:35 99.2 F H 80 22 117/61 90 09/29/18 20:40 98.1 F 125/65 09/29/18 19:46 98.1 F 73 24 H 125/65 90 09/29/18 16:00 99.0 F 88 18 96 09/29/18 15:16 100.4 F H 18 156/66 94 09/29/18 15:08 97.3 F 94 H 18 153/72 96 09/29/18 15:00 100.4 F H 90 18 156/66 94 09/29/18 14:50 91 H 23 H 99 09/29/18 14:31 92 H 18 155/70 99 09/29/18 14:01 94 H 21 137/49 99 09/29/18 13:31 94 H 18 153/72 96 09/29/18 13:01 92 H 20 150/70 91 09/29/18 12:43 95 H 23 H 151/72 93 09/29/18 11:46 18 146/65 09/29/18 11:31 20 131/75 09/29/18 11:30 21 09/29/18 11:19 22 141/62 09/29/18 10:21 97.3 F 98 H 18 151/73 96 Intake and Output 09/29/18 09/30/18 09/30/18 21:59 05:59 13:59 Intake Total 190 200 Balance 190 200 Intake: IV 190 Oral 200 Other: Urine Odor Normal # Voids 1 1 Weight 156 lb 8 oz Intake & Output: Intake & Output 09/29/18 09/30/18 09/30/18 21:59 05:59 13:59 Intake Total 190 200 Balance 190 200 Weight 156 lb 8 oz Intake: IV 190 Oral 200 Other: Urine Odor Normal # Voids 1 1 - General Appearance General appearance: fatigue EENT: mucous membranes moist Neck: supple Respiratory: clear Cardiology: no edema Gastrointestinal: no tenderness Integumentary: warm and dry Neurologic: no focal deficit, alert and oriented x3 Musculoskeletal: no deformities Psychiatric: mood/affect appropriate, cooperative - Lab 09/30/18 05:15 09/30/18 05:15 Most recent lab results Calcium 7.9 mg/dl (8.6-10.4) L 09/30/18 05:15 Phosphorus 5.2 mg/dL (2.7-4.5) H 09/30/18 05:15 Magnesium 1.1 mg/dL (1.6-2.5) L 09/30/18 05:15 Assessment and Plan (1) ESRD on peritoneal dialysis Ema Vang is a 78-year-old female with end-stage renal disease on chronic peritoneal dialysis (followed by Dr. 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 She reported sudden onset abdominal pain (at 8:30PM last night), ge neralized, but mostly lower abdominal, constant not crampy, never resolved since started, associated with nausea and vomiting (not coffee ground or bloody), no diarrhea or constipation. Last BM yesterday light brown. PD fluid clear. No problems with PD dwell or drain. urine looked somewhat bloody but no dysuria. She has been on Prednisone taper off for arthritis. No other new medications. Suspected cyst rupture/hemorrhage due to sudden onset abdominal pain. Suspected cyst infection due to leukocytosis, however this could also be due to Prednisone she was recently started. Suspected acute pancreatitis due to lipase elevation. Recent work up: EGD on 05/04/18: Schatzki's ring. Gastric polyp. Query celiac. Colonoscopy on 05/04/18: Colonic polyps. Query microscopic colitis. CT Abdomen and Plevis on 07/30/18: Pneumoperitoneum. This is probably iatrogenic secondary to peritoneal dialysis catheter. Multiple large renal cysts consistent with polycystic kidney disease. No hydronephrosis . Mild diverticulosis. No evidence for diverticulitis. Extensive calcified atherosclerotic disease. Work up: Labs on 09/29/18: PD Fluid cell count: Nucleated cells 16, 10% neutrophils Gram stain no polys, no organism Culture pending CT KUB on 09/29/18: History of polycystic kidney disease and renal failure. Extensive atherosclerotic disease. No abdominal aortic aneurysm. No acute or focal abnormality. Progress: Pain and nausea resolved, Tolerating clear liquids. PD UF ~100 ml overnight. No signs of fluid overload. Plan: Admitted for pain control and IV antibiotics. Ciprofloxacin is the preferred antibiotic for cyst infections. Continue CCPD with total volume 7,200 ml, 4 exchanges of 1,800 ml, 1.5%, total time 9 hours. Status: Chronic Priority: Medium (2) Anemia due to end stage renal disease Hb dropped from 10.1 to 8.8, likely dilutional or cyst hemorrhage Aranesp 40 mcg IV x 1 ordered for Hb <10 Status: Chronic Priority: Medium (3) Secondary hyperparathyroidism of renal origin Sensipar discontinued due to hypocalcemia Status: Chronic Priority: Medium (4) Hypomagnesemia Being replaced Status: Acute Priority: Medium
[2018-09-30] MEDS: 0.9 % SODIUM CHLORIDE 10 ML SYRINGE IV SCH ×3 (07:42→23:47)
[2018-09-30] MEDS: INSULIN LISPRO 1 UNIT/0.01 ML UNIT SQ SCH ×4 (07:42→21:25)
--- NOTE | 2018-09-30 07:59 | Internal Med Progress Note ---
Medical - PN: Subj Patient information: Note initiated : 09/30/18 at 7:51 am Service Date, if different from initiated Date: [] Patient: Ema Vang a 78 y/o F admitted on 09/29/18 for abdominal pain. Chief Complaint: [] Interval history: Ms. Vang is a 78 year old F with a history of end-stage renal disease on peritoneal dialysis, diabetes, COPD, depression anxiety, chronic diarrhea who presents with abdominal pain acutely. Patient reports that last night while starting to watching TV while she was sitting on the couch developed sudden severe pain in her abdominal lower quadrants bilaterally. Pain is described as a crampy pain she thought she had gas or had to go to the bathroom, rated at 10 out of 10. She took a pain medication which she said was oxycodone and was able to fall asleep but she was only asleep for a few hours. And still had pain. This morning she still had pain which is not rhythm improved and thus brought her in the ER. In the ED she did receive some pain medications by the time I saw her she said her pain was down to a 6 and appears comfortable in bed. She was feeling fine up to this point no recent illnesses no sick contacts no trauma or sudden twisting of her trunk. She did note that she did have some sharp flank pain on that right side for the past 3 weeks and did see her primary care provider for it. In the ED workup showed vital signs are essentially stable with a heart rate 92- 98 other parameters within normal limits. She did have a leukocytosis, again was afebrile. Lactic acid was within normal limits, urinalysis unremarkable for an infectious signs, but did have RBCs present. Noncontrast CT abdomen pelvis showed no acute pathology, no evidence of free intraperitoneal fluid intra-abdominal abscess or pneumoperitoneum or pneumatosis. Did show already known multiple large renal cysts. Dr. Alarcon saw the patient in the ED. Patient denies any epigastric pain. Lipase mildly elevated at 247. Concern for possible rupture of 1 of her renal cysts, antibiotic started given leukocytosis and concern for possibly infected cyst. She had a normal bowel movement last night. She did take a suppository last night after the pain started because that she previously stated felt like she needed to have a bowel movement but was not able to go. 09/30 No overnight events. Abdominal pain is less severe today. He has some nausea and retching. Tolerating clear liquid diet well. Did not have any reaction to Cipro, will switch back Rocephin to Cipro per nephro note. Getting PD right now. Gallbladder ultrasound unremarkable. Review of Systems: denies headache/fever/chills/chest pain/cough/dyspnea/diarrhea. Otherwise see above. - Constitutional Vitals: Vital Signs Temp Pulse Resp BP Pulse Ox 97.8 F 80 16 123/60 90 09/30/18 06:37 09/30/18 04:33 09/30/18 06:37 09/30/18 06:37 09/30/18 06:37 Period Temp Pulse Resp BP Sys/[place] Pulse Ox Last 24 Hr 97.3 F-100.4 F 73-98 16-24 112-156/49-75 90-99 Intake and Output 09/29/18 09/30/18 09/30/18 21:59 05:59 13:59 Intake Total 190 200 Balance 190 200 Weight 70.987 kg Intake & Output: Intake & Output 09/29/18 09/30/18 09/30/18 21:59 05:59 13:59 Intake Total 190 200 Balance 190 200 Weight 70.987 kg Intake: IV 190 Oral 200 Other: Urine Odor Normal # Voids 1 1 Exam: General: Alert, Awake, No acute Distress Eyes/N/T: EOMI, Head/Neck: neck supple, CV: regular, 2/6 SM Pulm: Clear b/l, no wheezing/rhonchi/rales Abd: soft, minimal TTP RUQ/RLQ/Epigastrum improve, right flank TTP, +BS x4, Ext: no clubbing/cyanosis, trace RLE and 1+ LLE edema Neuro: Alert, no focal deficits, moves all extremities, Skin: warm/dry Medical - PN: Obj Da - Labs CBC & Chem 7: 09/30/18 05:15 09/30/18 05:15 Labs: Abnormal Lab Results 09/30/18 09/30/18 09/29/18 05:15 05:15 10:50 WBC 12.9 H RBC 3.22 L Hgb 8.8 L Hct 27.2 L RDW 15.8 H Lymph % (Auto) Gran # 9.2 H [place] # (Auto) 1.5 H Nucleated RBCs RBC Morphology Hypochromasia Anisocytosis ESR Chloride Anion Gap BUN 75 H Creatinine 5.9 H* Glucose Calcium 7.9 L Phosphorus 5.2 H Magnesium 1.1 L Alkaline Phosphatase 120 H Total Protein 5.7 L Triglycerides 216 H Lipase 148 H Urine Protein 100 A Urine Occult Blood >=1.0 A Urine RBC > 182 H Urine WBC 5 H Ur Squamous Epith Cells 7 H Urine Bacteria Few A 09/29/18 09/29/18 09/29/18 10:30 10:30 10:30 WBC RBC Hgb Hct RDW Lymph % (Auto) Gran # [place] # (Auto) Nucleated RBCs 1 H RBC Morphology Abnorm A Hypochromasia 1+ A Anisocytosis 1+ A ESR 39 H Chloride Anion Gap BUN Creatinine Glucose Calcium Phosphorus Magnesium Alkaline Phosphatase Total Protein Triglycerides Lipase 247 H Urine Protein Urine Occult Blood Urine RBC Urine WBC Ur Squamous Epith Cells Urine Bacteria 09/29/18 09/29/18 10:30 10:30 WBC 20.7 H RBC 3.74 L Hgb 10.1 L Hct 31.3 L RDW 15.8 H Lymph % (Auto) 14.0 L Gran # 15.5 H [place] # (Auto) 2.3 H Nucleated RBCs RBC Morphology Hypochromasia Anisocytosis ESR Chloride 95 L Anion Gap 17.0 H BUN 81 H Creatinine 5.4 H* Glucose 123 H Calcium 8.4 L Phosphorus Magnesium Alkaline Phosphatase 143 H Total Protein Triglycerides Lipase Urine Protein Urine Occult Blood Urine RBC Urine WBC Ur Squamous Epith Cells Urine Bacteria Meds: Medications Acetaminophen (Tylenol) 650 mg PO Q6HP PRN PRN Reason: PAIN/FEVER > 101 Amlodipine Besylate (Norvasc) 10 mg PO DAILY [facility] Atorvastatin Calcium (Lipitor) 20 mg PO [facility] Last Admin: 09/30/18 01:03 Dose: 20 mg Documented by: Bisacodyl (Dulcolax) 10 mg [place] Q2-3DAYS PRN PRN Reason: Constipation [facility] Last Admin: 09/29/18 18:12 Dose: 25 mg Documented by: Ceftriaxone Sodium (Rocephin) 1 gm IV Q24H [facility] Last Admin: 09/29/18 16:22 Dose: 1 gm Documented by: Cinacalcet (Sensipar) 60 mg PO DAILY [facility] Cinacalcet (Sensipar) 30 mg PO [facility] Last Admin: 09/30/18 01:03 Dose: 30 mg Documented by: Darbepoetin Joel (Aranesp) 40 mcg IV ONCE ONE Stop: 09/30/18 08:01 Docusate Sodium (Colace) 100 mg PO BID [facility] Last Admin: 09/30/18 01:02 Dose: Not Given Documented by: Famotidine (Pepcid) 20 mg PO QHS [facility] Last Admin: 09/30/18 01:02 Dose: 20 mg Documented by: Furosemide (Lasix) 120 mg PO BID [facility] Insulin Human Lispro (Humalog) 0 unit SQ ACHS [facility]; Protocol Last Admin: 09/30/18 07:42 Dose: Not Given Documented by: Lidocaine (Lidoderm) 1 patch TOPICAL PRN PRN PRN Reason: Pain Lisinopril (Zestril) 5 mg PO BID [facility] Last Admin: 09/30/18 01:03 Dose: 5 mg Documented by: Loperamide HCl (Imodium) 2 mg PO PRN PRN PRN Reason: Diarrhea Morphine Sulfate (Morphine) 2 mg IV Q3HP PRN PRN Reason: PAIN LEVEL > 6 Last Admin: 09/29/18 22:09 Dose: 1 mg Documented by: Ondansetron HCl (Zofran) 4 mg IV Q6HP PRN PRN Reason: Nausea And Vomiting Last Admin: 09/29/18 21:56 Dose: 4 mg Documented by: Ondansetron HCl (Zofran Odt) 4 mg SL DAILY [facility] Prochlorperazine (Compazine) 5 mg IV Q4HP PRN PRN Reason: Nausea And Vomiting Fluticasone/Salmeterol (Advair 250-50 Diskus) 1 puff INH BID [facility] Last Admin: 09/30/18 01:00 Dose: Not Given Documented by: Sevelamer Carbonate (Renvela) 1,600 mg PO TID [facility] Last Admin: 09/30/18 01:04 Dose: Not Given Documented by: Sodium Chloride (Saline Flush) 10 ml IV Q8 [facility] Last Admin: 09/30/18 07:42 Dose: 10 ml Documented by: Trazodone HCl (Desyrel) 50 mg PO QHS [facility] Last Admin: 09/30/18 01:02 Dose: 50 mg Documented by: Medical - PN: A/P - Time Spent With Patient Total time spent is greater than 50% in coordination of care (as documented) at patient's floor/unit and/or counseling patient: - Narrative A/P Narrative: A: *Acute right quad and LLQ abd pain: ?rupture/hemorrhage of a renal cyst vs pancreatitis -lipase mildy elevated but pain not typical, noncontrast CT no obvious cause -GB u/s unremarkable -lipase elevated but does not have typical pain *Leukocytosis/fever on admit: reactive vs infectious. ?infected cyst vs other -improving *ESRD 2/2 Polycystic Kidney dz w/PD: follows with Dr. Russ *Anemia, chronic: *DM: *COPD (not on home O2): *Anxiety/depression *HTN/HLD *GERD *Hypomag: P: -clear diet advance to full if tolerates breakfast -Nephrology following, PD and aranesp prn -rocephin given listed allergy to cipro, however, tolerated in ED and will transition back, pending BC -f/u lipase -prn electrolyte replacement -ppx: heparin/pepcid Medical - PN: Qual - Stroke Symptom Onset Unknown: No - VTE Deep Vein Thrombosis/Pulmonary Embolism Present on Admission: No
[2018-09-30] MEDS ORDERED: DARBEPOETIN ALFA 40 MCG/ML VIAL IV ONE (08:00)
[2018-09-30] MEDS ORDERED: MAGNESIUM SULFATE 2 GM/50 ML BAG IV ONE (08:17)
[2018-09-30] MEDS ORDERED: CINACALCET 30 MG TABLET PO SCH (09:00)
[2018-09-30] MEDS ORDERED: GENTAMICIN SULFATE TOPICAL SCH (09:00)
[2018-09-30] MEDS: FUROSEMIDE 40 MG TABLET PO SCH ×2 (09:04→21:29)
[2018-09-30] MEDS: CARVEDILOL 12.5 MG TABLET PO SCH ×2 (09:04→17:52)
[2018-09-30] MEDS: cefTRIAXone 1 GM VIAL IV SCH (09:04)
[2018-09-30] MEDS: amLODIPine 10 MG TABLET PO SCH (09:04)
[2018-09-30] MEDS: CIPROFLOXACIN 400 MG/200 ML BAG IV SCH (09:04)
[2018-09-30] MEDS: ONDANSETRON 4 MG ODT TABLET SL SCH (09:05)
[2018-10-01] MEDS: 0.9 % SODIUM CHLORIDE 10 ML SYRINGE IV SCH ×3 (06:28→21:52)
--- NOTE | 2018-10-01 06:58 | Nephrology Progress Note ---
Subjective Patient information: Note initiated : 10/01/18 at 6:56 am Patient: Ema Vang 78 y/o F admitted on 09/29/18 for abdominal pain. Chief Complaint: Abdominal pain Principal diagnosis: Abdominal pain Pertinent ROS: Abdominal pain Nausea No flank pain No diarrhea No dysuria No edema Objective - Vital Signs Vital signs: Vital Signs Temp Pulse Resp BP BP Pulse Ox 10/01/18 06:51 98.1 F 16 128/71 95 10/01/18 04:00 98 F 84 18 107/47 91 10/01/18 00:00 98.4 F 80 20 90/52 96 09/30/18 20:21 98.1 F 102/54 09/30/18 20:00 98.1 F 86 18 102/54 92 09/30/18 16:00 98.4 F 20 121/86 91 09/30/18 11:39 98.2 F 16 136/68 90 09/30/18 09:40 97.8 F 123/60 Intake and Output 09/30/18 10/01/18 10/01/18 21:59 05:59 13:59 Intake Total 500 100 Balance 500 100 Intake: Oral 500 100 Other: # Voids 2 Weight 156 lb Intake & Output: Intake & Output 09/30/18 10/01/18 10/01/18 21:59 05:59 13:59 Intake Total 500 100 Balance 500 100 Weight 156 lb Intake: Oral 500 100 Other: # Voids 2 - General Appearance General appearance: appears started age, fatigue EENT: mucous membranes moist Neck: supple Respiratory: clear Cardiology: no edema Gastrointestinal: no tenderness Integumentary: warm and dry Neurologic: no focal deficit, alert and oriented x3 Musculoskeletal: no deformities Psychiatric: mood/affect appropriate, cooperative - Lab 10/01/18 07:25 10/01/18 07:25 Most recent lab results Calcium 7.9 mg/dl (8.6-10.4) L 09/30/18 05:15 Phosphorus 5.2 mg/dL (2.7-4.5) H 09/30/18 05:15 Magnesium 1.1 mg/dL (1.6-2.5) L 09/30/18 05:15 Assessment and Plan (1) ESRD on peritoneal dialysis Ema Vang is a 78-year-old female with end-stage renal disease on chronic peritoneal dialysis (followed by Dr. 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 She reported sudden onset abdominal pain (at 8:30PM last night), gener alized, but mostly lower abdominal, constant not crampy, never resolved since started, associated with nausea and vomiting (not coffee ground or bloody), no diarrhea or constipation. Last BM yesterday light brown. PD fluid clear. No problems with PD dwell or drain. urine looked somewhat bloody but no dysuria. She has been on Prednisone taper off for arthritis. No other new medications. Suspected cyst rupture/hemorrhage due to sudden onset abdominal pain. Suspected cyst infection due to leukocytosis, however this could also be due to Prednisone she was recently started. Suspected acute pancreatitis due to lipase elevation. Recent work up: EGD on 05/04/18: Schatzki's ring. Gastric polyp. Query celiac. Colonoscopy on 05/04/18: Colonic polyps. Query microscopic colitis. CT Abdomen and Plevis on 07/30/18: Pneumoperitoneum. This is probably iatrogenic secondary to peritoneal dialysis catheter. Multiple large renal cysts consistent with polycystic kidney disease. No hydronephrosis . Mild d iverticulosis. No evidence for diverticulitis. Extensive calcified atherosclerotic disease. Work up: Labs on 09/29/18: PD Fluid cell count: Nucleated cells 16, 10% neutrophils Gram stain no polys, no organism Culture pending CT KUB on 09/29/18: History of polycystic kidney disease and renal failure. Extensive atherosclerotic disease. No abdominal aortic aneurysm. No acute or focal abnormality. CT Abdomen and Pelvis with oral contrast on 10/01/18: Polycystic kidney disease. Patient is on peritoneal dialysis. There is intraperitoneal fluid which may be dialysate. No acute intra-abdominal abnormality. Progress: Tolerating full liquid diet. PD UF ~100 ml overnight. No signs of fluid overload. Plan: Continue CCPD with total volume 7,200 ml, 4 exchanges of 1,800 ml, 1.5%, total time 9 hours. Status: Chronic Priority: Medium (2) Anemia due to end stage renal disease Hb dropped from 10.1 to 8.8, likely dilutional or cyst hemorrhage Aranesp 40 mcg IV x 1 ordered for Hb <10 Status: Chronic Priority: Medium (3) Secondary hyperparathyroidism of renal origin Sensipar discontinued due to hypocalcemia Status: Chronic Priority: Medium (4) Hypomagnesemia Being replaced Status: Acute Priority: Medium
--- NOTE | 2018-10-01 07:15 | Internal Med Progress Note ---
Medical - PN: Subj Patient information: Note initiated : 10/01/18 at 7:11 am Service Date, if different from initiated Date: [] Patient: Ema Vang a 78 y/o F admitted on 09/29/18 for abdominal pain. Chief Complaint: [] Interval history: Ms. Vang is a 78 year old F with a history of end-stage renal disease on peritoneal dialysis, diabetes, COPD, depression anxiety, chronic diarrhea who presents with abdominal pain acutely. Patient reports that last night while starting to watching TV while she was sitting on the couch developed sudden severe pain in her abdominal lower quadrants bilaterally. Pain is described as a crampy pain she thought she had gas or had to go to the bathroom, rated at 10 out of 10. She took a pain medication which she said was oxycodone and was able to fall asleep but she was only asleep for a few hours. And still had pain. This morning she still had pain which is not rhythm improved and thus brought her in the ER. In the ED she did receive some pain medications by the time I saw her she said her pain was down to a 6 and appears comfortable in bed. She was feeling fine up to this point no recent illnesses no sick contacts no trauma or sudden twisting of her trunk. She did note that she did have some sharp flank pain on that right side for the past 3 weeks and did see her primary care provider for it. In the ED workup showed vital signs are essentially stable with a heart rate 92- 98 other parameters within normal limits. She did have a leukocytosis, again was afebrile. Lactic acid was within normal limits, urinalysis unremarkable for an infectious signs, but did have RBCs present. Noncontrast CT abdomen pelvis showed no acute pathology, no evidence of free intraperitoneal fluid intra-abdominal abscess or pneumoperitoneum or pneumatosis. Did show already known multiple large renal cysts. Dr. Alarcon saw the patient in the ED. Patient denies any epigastric pain. Lipase mildly elevated at 247. Concern for possible rupture of 1 of her renal cysts, antibiotic started given leukocytosis and concern for possibly infected cyst. She had a normal bowel movement last night. She did take a suppository last night after the pain started because that she previously stated felt like she needed to have a bowel movement but was not able to go. 09/30 No overnight events. Abdominal pain is less severe today. He has some nausea and retching. Tolerating clear liquid diet well. Did not have any reaction to Cipro, will switch back Rocephin to Cipro per nephro note. Getting PD right now. Gallbladder ultrasound unremarkable. 10/01 States his abdominal pain again especially lower quadrants, has not had a bowel movement since Monday. States she has burning when she urinates Review of Systems: denies headache/fever/chills/chest pain/cough/dyspnea/diarrhea. Otherwise see above. - Constitutional Vitals: Vital Signs Temp Pulse Resp BP Pulse Ox 98.1 F 84 16 128/71 95 10/01/18 06:51 10/01/18 04:00 10/01/18 06:51 10/01/18 06:51 10/01/18 06:51 Period Temp Pulse Resp BP Sys/Hartman Pulse Ox Last 24 Hr 97.8 F-98.4 F 80-86 16-20 90-136/47-86 90-96 Intake and Output 09/30/18 10/01/18 10/01/18 21:59 05:59 13:59 Intake Total 500 100 Balance 500 100 Weight 70.76 kg Intake & Output: Intake & Output 09/30/18 10/01/18 10/01/18 21:59 05:59 13:59 Intake Total 500 100 Balance 500 100 Weight 70.76 kg Intake: Oral 500 100 Other: # Voids 2 Exam: General: Alert, Awake, No acute Distress Eyes/N/T: EOMI, Head/Neck: neck supple, CV: regular, 2/6 SM Pulm: Clear b/l, no wheezing/rhonchi/rales Abd: soft, mild TTP RUQ/RLQ/LLQ, +BS x4, Ext: no clubbing/cyanosis, trace RLE and 1+ LLE edema Neuro: Alert, no focal deficits, moves all extremities, Skin: warm/dry Medical - PN: Obj Da - Labs CBC & Chem 7: 09/30/18 05:15 09/30/18 05:15 Labs: Abnormal Lab Results 09/30/18 09/30/18 09/29/18 05:15 05:15 10:50 WBC 12.9 H RBC 3.22 L Hgb 8.8 L Hct 27.2 L RDW 15.8 H Lymph % (Auto) Gran # 9.2 H Dickens # (Auto) 1.5 H Nucleated RBCs RBC Morphology Hypochromasia Anisocytosis ESR Chloride Anion Gap BUN 75 H Creatinine 5.9 H* Glucose Calcium 7.9 L Phosphorus 5.2 H Magnesium 1.1 L Alkaline Phosphatase 120 H Total Protein 5.7 L Triglycerides 216 H Lipase 148 H Urine Protein 100 A Urine Occult Blood >=1.0 A Urine RBC > 182 H Urine WBC 5 H Ur Squamous Epith Cells 7 H Urine Bacteria Few A 09/29/18 09/29/18 09/29/18 10:30 10:30 10:30 WBC RBC Hgb Hct RDW Lymph % (Auto) Gran # Dickens # (Auto) Nucleated RBCs 1 H RBC Morphology Abnorm A Hypochromasia 1+ A Anisocytosis 1+ A ESR 39 H Chloride Anion Gap BUN Creatinine Glucose Calcium Phosphorus Magnesium Alkaline Phosphatase Total Protein Triglycerides Lipase 247 H Urine Protein Urine Occult Blood Urine RBC Urine WBC Ur Squamous Epith Cells Urine Bacteria 09/29/18 09/29/18 10:30 10:30 WBC 20.7 H RBC 3.74 L Hgb 10.1 L Hct 31.3 L RDW 15.8 H Lymph % (Auto) 14.0 L Gran # 15.5 H Dickens # (Auto) 2.3 H Nucleated RBCs RBC Morphology Hypochromasia Anisocytosis ESR Chloride 95 L Anion Gap 17.0 H BUN 81 H Creatinine 5.4 H* Glucose 123 H Calcium 8.4 L Phosphorus Magnesium Alkaline Phosphatase 143 H Total Protein Triglycerides Lipase Urine Protein Urine Occult Blood Urine RBC Urine WBC Ur Squamous Epith Cells Urine Bacteria Meds: Medications Acetaminophen (Tylenol) 650 mg PO Q6HP PRN PRN Reason: PAIN/FEVER > 101 Amlodipine Besylate (Norvasc) 10 mg PO DAILY [facility] Last Admin: 09/30/18 09:04 Dose: Not Given Documented by: Atorvastatin Calcium (Lipitor) 20 mg PO HS [facility] Last Admin: 09/30/18 21:29 Dose: 20 mg Documented by: Bisacodyl (Dulcolax) 10 mg IA Q2-3DAYS PRN PRN Reason: Constipation Carvedilol (Coreg) 25 mg PO BIDCC [facility] Last Admin: 09/30/18 17:52 Dose: Not Given Documented by: Diagnostic Test (Pha) (Accu-Chek) 1 each FS ACHS [facility] Last Admin: 09/30/18 21:25 Dose: 1 each Documented by: Docusate Sodium (Colace) 100 mg PO BID [facility] Last Admin: 09/30/18 21:29 Dose: 100 mg Documented by: Famotidine (Pepcid) 20 mg PO QHS [facility] Last Admin: 09/30/18 21:28 Dose: 20 mg Documented by: Furosemide (Lasix) 120 mg PO BID [facility] Last Admin: 09/30/18 21:29 Dose: 120 mg Documented by: Ciprofloxacin (Cipro) 400 mg in 200 mls @ 200 mls/hr IV Q24H [facility] Last Infusion: 09/30/18 12:21 Dose: Infused Documented by: Insulin Human Lispro (Humalog) 0 unit SQ ACHS [facility]; Protocol Last Admin: 09/30/18 21:25 Dose: 2 units Documented by: Lidocaine (Lidoderm) 1 patch TOPICAL PRN PRN PRN Reason: Pain Lisinopril (Zestril) 5 mg PO BID [facility] Last Admin: 09/30/18 21:28 Dose: 5 mg Documented by: Loperamide HCl (Imodium) 2 mg PO PRN PRN PRN Reason: Diarrhea Morphine Sulfate (Morphine) 2 mg IV Q3HP PRN PRN Reason: PAIN LEVEL > 6 Last Admin: 10/01/18 06:26 Dose: 1 mg Documented by: Ondansetron HCl (Zofran) 4 mg IV Q6HP PRN PRN Reason: Nausea And Vomiting Last Admin: 09/29/18 21:56 Dose: 4 mg Documented by: Ondansetron HCl (Zofran Odt) 4 mg SL DAILY [facility] Last Admin: 09/30/18 09:05 Dose: 4 mg Documented by: Prochlorperazine (Compazine) 5 mg IV Q4HP PRN PRN Reason: Nausea And Vomiting Fluticasone/Salmeterol (Advair 250-50 Diskus) 1 puff INH BID [facility] Last Admin: 09/30/18 21:29 Dose: 1 puff Documented by: Sevelamer Carbonate (Renvela) 1,600 mg PO TID [facility] Last Admin: 09/30/18 21:26 Dose: Not Given Documented by: Sodium Chloride (Saline Flush) 10 ml IV Q8 [facility] Last Admin: 10/01/18 06:28 Dose: 10 ml Documented by: Trazodone HCl (Desyrel) 50 mg PO QHS [facility] Last Admin: 09/30/18 21:28 Dose: 50 mg Documented by: Medical - PN: A/P - Time Spent With Patient Total time spent is greater than 50% in coordination of care (as documented) at patient's floor/unit and/or counseling patient: - Narrative A/P Narrative: A: *Acute right quad and LLQ abd pain: ?rupture/hemorrhage of a renal cyst vs less likely pancreatitis -lipase mildy elevated but pain not typical, noncontrast CT no obvious cause -GB u/s unremarkable -lipase elevated but does not have typical pain -peritoneal fluid not infected *Leukocytosis/fever on admit: reactive vs infectious. ?infected cyst vs other -improving -could have been from recent medrol dose pack for OA *ESRD 2/2 Polycystic Kidney dz w/PD: follows with Dr. Russ *Anemia, chronic: *DM: *COPD (not on home O2): *Anxiety/depression *HTN/HLD *GERD *Hypomag: P: -full liquids -Nephrology following, PD and aranesp prn -rocephin given listed allergy to cipro, however, tolerated in ED and will transition back, pending BC -f/u lipase -oral contrast CT f/u for continued pain and no BM, -prn electrolyte replacement -ppx: heparin/pepcid Medical - PN: Qual - Stroke Symptom Onset Unknown: No - VTE Deep Vein Thrombosis/Pulmonary Embolism Present on Admission: No
[2018-10-01] MEDS: INSULIN LISPRO 1 UNIT/0.01 ML UNIT SQ SCH ×4 (07:18→21:50)
[2018-10-01] MEDS ORDERED: PHENAZOPYRIDINE 200 MG TABLET PO PRN (07:55)
[2018-10-01 08:43] LABS: Basophils # (Auto) 0 K/mcL (0.0-0.3); Basophils % (Auto) 0.2 % (0.0-2.0); Eosinophils # (Auto) 0.1 K/mcL (0.0-0.7); Eosinophils % (Auto) 0.7 % (0.0-7.0); Granulocytes % (Auto) 72.9 % (38.0-78.0); Lymphocytes # (Auto) 2.5 K/mcL (1.5-4.8); Lymphocytes % (Auto) 16.6 % (15.5-49.0); Mean Cell Volume 84.6 fL (80.0-100.0); Mean Corpuscular HGB Conc 31.8 g/dL (31.0-36.0); Monocytes # (Auto) 1.5 K/mcL (0.1-0.9); Monocytes % (Auto) 9.6 % (1.0-12.0); Platelet Count 290 K/mcL (140-440); RBC 3.39 M/mcL (4.00-5.20); Red Cell Distribution Width 15.3 % (11.5-14.5)
[2018-10-01 09:09] LABS: ALT/SGPT 6 U/l (0-40); Albumin 3.2 gm/dL (3.2-5.2); Albumin/Globulin Ratio 1.2 (1.0-2.3); Alkaline Phosphatase 118 U/L (39-117); Bilirubin,Direct < 0.2 mg/dL (0.0-0.3); Blood Urea Nitrogen 73 mg/dl (8-23); Gamma Glutamyl Transpeptidase 16 U/L (5-36); Lipase 115 U/L (7-60); Uric Acid 7.4 mg/dL (2.5-8.0)
[2018-10-01] MEDS: FLUTICASONE/SALMETEROL 250/50 INHALER #14 INH SCH (09:23)
[2018-10-01] MEDS: CARVEDILOL 12.5 MG TABLET PO SCH ×2 (09:30→17:08)
[2018-10-01] MEDS: CIPROFLOXACIN 400 MG/200 ML BAG IV SCH ×2 (10:05→11:56)
[2018-10-01] MEDS: ONDANSETRON 4 MG/2 ML VIAL IV PRN (10:05)
[2018-10-01 10:24] LABS: Anisocytosis FEW (NONE SEEN); Lymphocytes % 20 % (15-49); Metamyelocytes % 1 % (0-0); Monocytes % (Manual) 8 % (1-12); Platelet Estimate NORMAL (NORMAL); RBC Morphology ABNORM (NORMAL); Segmented Neutrophils % 71 % (38-78)
--- NOTE | 2018-10-01 10:24 | Cat Scan Report ---
CLINICAL INFORMATION: Abdominal pain COMPARISON: Previous examination dated 07/30/2018 TECHNIQUE: Axial images were obtained through the abdomen and pelvis. Sagittally and coronally reformatted images. FINDINGS: Lung bases are negative. There is a calcified right lower lobe granuloma. No pleural fluid. No pericardial fluid. Severely abnormal kidneys consistent with polycystic kidney disease. There are vascular calcifications. No hydronephrosis. No interval change. Urinary bladder is not distended. There is a peritoneal dialysis catheter in the peritoneal space. There is free intraperitoneal fluid. This is probably secondary to peritoneal dialysis. This is a new finding since previous examination. No intra-abdominal abscess. No significant pneumoperitoneum. Liver is negative to the limits of noncontrast enhanced examination. No focal intrahepatic abnormality. Gallbladder is present. No calcified gallstones. No dilated bile ducts. There are splenic granulomas. Spleen is not enlarged. Pancreas is negative. No pancreatic mass. Adrenal glands are negative. No intra-abdominal abscess. No pneumoperitoneum. No biliary or portal venous gas. No pneumatosis. There is sigmoid diverticulosis. No CT evidence for diverticulitis. No appendicitis. No mechanical small bowel obstruction. There is no retroperitoneal or mesenteric adenopathy. Abdominal aorta is densely calcified. There is calcification of the common iliac arteries. No abdominal aortic aneurysm. Uterus is not identified. No adnexal mass. No intra-abdominal abscess. No pneumoperitoneum. No biliary or portal venous gas. No pneumatosis. Patient has undergone previous posterior spinal fusion from L2 through L4. No acute lumbar compression fracture. IMPRESSION: 1. Polycystic kidney disease. Patient is on peritoneal dialysis. There is intraperitoneal fluid which may be dialysate 2. No acute intra-abdominal abnormality. The exam was performed using radiation dose optimization techniques including, but not limited to, automated exposure control, adjustment of the mA and/or kV according to patient size and use of iterative reconstruction technique. Interpreted and Authenticated by: Kolby Dover 10/01/18
[2018-10-01] MEDS: DOCUSATE SODIUM 100 MG CAPSULE PO SCH ×2 (11:02→21:50)
[2018-10-01] MEDS: ONDANSETRON 4 MG ODT TABLET SL SCH (11:03)
[2018-10-01] MEDS: LISINOPRIL 5 MG TABLET PO SCH ×2 (11:05→21:52)
[2018-10-01] MEDS: amLODIPine 10 MG TABLET PO SCH (11:06)
[2018-10-01] MEDS: SALMETEROL INH SCH ×2 (11:06→21:55)
[2018-10-01] MEDS: FLUTICASONE INH SCH ×2 (11:06→21:55)
[2018-10-01] MEDS: FUROSEMIDE 40 MG TABLET PO SCH ×2 (11:06→21:50)
[2018-10-01] MEDS: SEVELAMER 800 MG TABLET PO SCH ×3 (11:57→17:08)
[2018-10-01] MEDS: cefTRIAXone 1 GM VIAL IV SCH (14:00)
[2018-10-01 14:05] LABS: Amylase 196 U/L (28-100)
--- NOTE | 2018-10-01 14:44 | Ultrasound Report ---
CLINICAL INFORMATION: Pelvic pain TECHNIQUE: Transabdominal and endovaginal pelvic ultrasound. COMPARISON: CT scan dated 10/01/2018 FINDINGS: Previous hysterectomy. Ovaries are not identified. There is mild free fluid within the pelvis. No solid or cystic adnexal mass. No focal abnormality IMPRESSION: 1. Mild free pelvic fluid 2. Previous hysterectomy. Ovaries are not visualized Interpreted and Authenticated by: Kolby Dover 10/01/18
[2018-10-01 16:38] LABS: Appearance,Urine HAZY; Bacteria,Urine FEW /hpf (0); Bilirubin,Urine NEG (NEG); Color,Urine YELLOW; Glucose,Urine (UA) NEGATIVE (NEG); Leukocyte Esterase,Urine NEG /uL (NEG); Mucus,Urine FEW /hpf (0); Protein,Urine 100 mg/dL (NEG); Specific Gravity,Urine 1.015 (1.000-1.035); Urine Amorphous Crystals MOD /hpf (0); Urine Blood 0.2 mg/dL (<0.03); Urine RBC 2 /hpf (0-1); Urine Squamous Epithelial Cell 8 /hpf (0-4); Urine WBC 1 /hpf (0-4); Urobilinogen,Urine NEG (NEG)
[2018-10-01] MEDS: PHENAZOPYRIDINE 200 MG TABLET PO SCH (17:59)
[2018-10-01] MEDS: FAMOTIDINE 20 MG TABLET PO SCH (21:51)
[2018-10-01] MEDS: traZODone HCL 50 MG TABLET PO SCH (21:51)
[2018-10-01] MEDS: ATORVASTATIN 20 MG TABLET PO SCH (21:51)
[2018-10-02] MEDS: PHENAZOPYRIDINE 200 MG TABLET PO SCH ×2 (03:41→09:09)
[2018-10-02 05:35] LABS: Mean Cell Volume 85.2 fL (80.0-100.0); Platelet Count 256 K/mcL (140-440); RBC 3.09 M/mcL (4.00-5.20); Red Cell Distribution Width 15.7 % (11.5-14.5)
[2018-10-02 06:24] LABS: ALT/SGPT 5 U/l (0-40); Albumin 2.9 gm/dL (3.2-5.2); Albumin/Globulin Ratio 1.1 (1.0-2.3); Alkaline Phosphatase 110 U/L (39-117); Bilirubin,Direct < 0.2 mg/dL (0.0-0.3); Blood Urea Nitrogen 67 mg/dl (8-23); Gamma Glutamyl Transpeptidase 16 U/L (5-36); Uric Acid 7.2 mg/dL (2.5-8.0)
[2018-10-02] MEDS: 0.9 % SODIUM CHLORIDE 10 ML SYRINGE IV SCH ×3 (06:29→20:58)
[2018-10-02 07:13] LABS: Anisocytosis FEW (NONE SEEN); Band Neutrophils % 1 % (0-10); Eosinophils % (Manual) 1 % (0-7); Lymphocytes % 16 % (15-49); Metamyelocytes % 1 % (0-0); Monocytes % (Manual) 10 % (1-12); Platelet Estimate NORMAL (NORMAL); RBC Morphology ABNORM (NORMAL); Segmented Neutrophils % 71 % (38-78)
[2018-10-02] MEDS: ONDANSETRON 4 MG/2 ML VIAL IV PRN (07:13)
--- NOTE | 2018-10-02 07:21 | Nephrology Progress Note ---
Subjective Patient information: Note initiated : 10/02/18 at 7:19 am Patient: Ema Vang 78 y/o F admitted on 09/29/18 for abdominal pain. Chief Complaint: Abdominal pain Principal diagnosis: Abdominal pain Pertinent ROS: Dysuria Nausea and vomiting on and off No flank pain No diarrhea No dysuria No edema Objective - Vital Signs Vital signs: Vital Signs Temp Pulse Resp BP BP BP Pulse Ox 10/02/18 03:34 98.4 F 77 20 116/55 96 10/02/18 00:40 114/57 10/01/18 23:19 98.9 F 67 20 92/44 97 10/01/18 20:03 99.2 F H 104/42 10/01/18 19:19 99.2 F H 72 20 104/49 91 10/01/18 16:01 94 10/01/18 15:12 99 F 16 135/70 90 10/01/18 11:08 98.6 F 87 16 93/50 94 10/01/18 08:28 98.1 F 102/54 Intake and Output 10/01/18 10/02/18 10/02/18 21:59 05:59 13:59 Intake Total 400 225 Output Total 65 150 Balance 335 75 Intake: IV 200 Oral 200 225 Output: Void Amount 65 150 Other: Meal Dinner Percent of Meal Consumed 100% Urine Color Dark Yellow # Voids 1 Weight 162 lb 8 oz Intake & Output: Intake & Output 10/01/18 10/02/18 10/02/18 21:59 05:59 13:59 Intake Total 400 225 Output Total 65 150 Balance 335 75 Weight 162 lb 8 oz Intake: IV 200 Oral 200 225 Output: Void Amount 65 150 Other: Meal Dinner Percent of Meal Consumed 100% Urine Color Dark Yellow # Voids 1 - General Appearance General appearance: appears started age, fatigue EENT: mucous membranes moist Neck: supple Respiratory: clear Cardiology: no edema Gastrointestinal: no tenderness Integumentary: warm and dry Neurologic: no focal deficit, alert and oriented x3 Musculoskeletal: no deformities Psychiatric: mood/affect appropriate, cooperative - Lab 10/02/18 04:08 10/02/18 04:08 Most recent lab results Calcium 8.5 mg/dl (8.6-10.4) L 10/02/18 04:08 Phosphorus 6.8 mg/dL (2.7-4.5) H* 10/02/18 04:08 Magnesium 1.5 mg/dL (1.6-2.5) L 10/02/18 04:08 Assessment and Plan (1) ESRD on peritoneal dialysis Ema Vang is a 78-year-old female with end-stage renal disease on chronic peritoneal dialysis (followed by Dr. 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 She reported sudden onset abdominal pain (at 8:30PM last night), generalized, but mostly lower abdominal, constant not crampy, never resolved since started, associated with nausea and vomiting (not coffee ground or bloody), no diarrhea or constipation. Last BM yesterday light brown. PD fluid clear. No problems with PD dwell or drain. urine looked somewhat bloody but no dysuria. She has been on Prednisone taper off for arthritis. No other new medications. Suspected cyst rupture/hemorrhage due to sudden onset abdominal pain. Suspected cyst infection due to leukocytosis, however this could also be due to Prednisone she was recently started. Suspected acute pancreatitis due to lipase elevation. Recent work up: EGD on 05/04/18: Schatzki's ring. Gastric polyp. Query celiac. Colonoscopy on 05/04/18: Colonic polyps. Query microscopic colitis. CT Abdomen and Plevis on 07/30/18: Pneumoperitoneum. This is probably iatrogenic secondary to peritoneal dialysis catheter. Multiple large renal cysts consistent with polycystic kidney disease. No hydronephrosis . Mild diverticulosis. No evidence for diverticulitis. Extensive calcified atherosclerotic disease. Work up: Labs on 09/29/18: PD Fluid cell count: Nucleated cells 16, 10% neutrophils Gram stain no polys, no organism Culture pending CT KUB on 09/29/18: History of polycystic kidney disease and renal failure. Extensive atherosclerotic disease. No abdominal aortic aneurysm. No acute or focal abnormality. CT Abdomen and Pelvis with oral contrast on 10/01/18: Polycystic kidney disease. Patient is on peritoneal dialysis. There is intraperitoneal fluid which may be dialysate. No acute intra-abdominal abnormality. Progress: Tolerating full liquid diet Complaining of dysuria No signs of fluid overload Plan: Continue CCPD with total volume 7,200 ml, 4 exchanges of 1,800 ml, 1.5%, total time 9 hours. Status: Chronic Priority: Medium (2) Anemia due to end stage renal disease Hb dropped from 10.1 to 8.8, likely dilutional or cyst hemorrhage Aranesp 40 mcg IV x 1 ordered for Hb <10 Status: Chronic Priority: Medium (3) Secondary hyperparathyroidism of renal origin Sensipar discontinued due to hypocalcemia Status: Chronic Priority: Medium (4) Hypomagnesemia Associated with loop diuretics and peritoneal dialysis Being replaced with 1 g IV Magnesium Sulfate today Status: Acute Priority: Medium
[2018-10-02] MEDS: INSULIN LISPRO 1 UNIT/0.01 ML UNIT SQ SCH ×4 (07:28→21:05)
[2018-10-02] MEDS ORDERED: POLYETHYLENE GLYCOL 3350 17 GM PACKET PO ONE ×2 (07:32→15:00)
--- NOTE | 2018-10-02 07:39 | Internal Med Progress Note ---
Medical - PN: Subj Patient information: Note initiated : 10/02/18 at 7:30 am Service Date, if different from initiated Date: [] Patient: Ema Vang a 78 y/o F admitted on 09/29/18 for abdominal pain. Chief Complaint: [] Interval history: Ms. Vang is a 78 year old F with a history of end-stage renal disease on peritoneal dialysis, diabetes, COPD, depression anxiety, chronic diarrhea who presents with abdominal pain acutely. Patient reports that last night while starting to watching TV while she was sitting on the couch developed sudden severe pain in her abdominal lower quadrants bilaterally. Pain is described as a crampy pain she thought she had gas or had to go to the bathroom, rated at 10 out of 10. She took a pain medication which she said was oxycodone and was able to fall asleep but she was only asleep for a few hours. And still had pain. This morning she still had pain which is not rhythm improved and thus brought her in the ER. In the ED she did receive some pain medications by the time I saw her she said her pain was down to a 6 and appears comfortable in bed. She was feeling fine up to this point no recent illnesses no sick contacts no trauma or sudden twisting of her trunk. She did note that she did have some sharp flank pain on that right side for the past 3 weeks and did see her primary care provider for it. In the ED workup showed vital signs are essentially stable with a heart rate 92- 98 other parameters within normal limits. She did have a leukocytosis, again was afebrile. Lactic acid was within normal limits, urinalysis unremarkable for an infectious signs, but did have RBCs present. Noncontrast CT abdomen pelvis showed no acute pathology, no evidence of free intraperitoneal fluid intra-abdominal abscess or pneumoperitoneum or pneumatosis. Did show already known multiple large renal cysts. Dr. Alarcon saw the patient in the ED. Patient denies any epigastric pain. Lipase mildly elevated at 247. Concern for possible rupture of 1 of her renal cysts, antibiotic started given leukocytosis and concern for possibly infected cyst. She had a normal bowel movement last night. She did take a suppository last night after the pain started because that she previously stated felt like she needed to have a bowel movement but was not able to go. 09/30 No overnight events. Abdominal pain is less severe today. He has some nausea and retching. Tolerating clear liquid diet well. Did not have any reaction to Cipro, will switch back Rocephin to Cipro per nephro note. Getting PD right now. Gallbladder ultrasound unremarkable. 10/01 States his abdominal pain again especially lower quadrants, has not had a bowel movement since Monday. States she has burning when she urinates 10/02 Pain improving. She did have some nausea after medication this morning. No other new complaints other than wants an advance in her diet Review of Systems: denies headache/fever/chills/chest pain/cough/dyspnea/diarrhea. Otherwise see above. - Constitutional Vitals: Vital Signs Temp Pulse Resp BP Pulse Ox 98.4 F 77 20 116/55 96 10/02/18 03:34 10/02/18 03:34 10/02/18 03:34 10/02/18 03:34 10/02/18 03:34 Period Temp Pulse Resp BP Sys/[place] Pulse Ox Last 24 Hr 98.1 F-99.2 F 67-87 16-20 92-135/42-70 90-97 Intake and Output 10/01/18 10/02/18 10/02/18 21:59 05:59 13:59 Intake Total 400 225 Output Total 65 150 25 Balance 335 75 -25 Weight 73.709 kg Intake & Output: Intake & Output 10/01/18 10/02/18 10/02/18 21:59 05:59 13:59 Intake Total 400 225 Output Total 65 150 25 Balance 335 75 -25 Weight 73.709 kg Intake: IV 200 Oral 200 225 Output: Void Amount 65 150 25 Other: Meal Dinner Percent of Meal Consumed 100% Urine Color Dark Yellow [place] # Voids 1 Exam: General: Alert, Awake, No acute Distress Eyes/N/T: EOMI, Head/Neck: neck supple, CV: regular, 2/6 SM Pulm: Clear b/l, no wheezing/rhonchi/rales Abd: soft, minimal TTP right side on deep palp, +BS x4, Ext: no clubbing/cyanosis, trace b/l LE edema Neuro: Alert, no focal deficits, moves all extremities, Skin: warm/dry Medical - PN: Obj Da - Labs CBC & Chem 7: 10/02/18 04:08 10/02/18 04:08 Labs: Abnormal Lab Results 10/02/18 10/02/18 10/01/18 04:08 04:08 15:00 WBC 14.1 H RBC 3.09 L Hgb 8.4 L Hct 26.3 L RDW 15.7 H Lymph % (Auto) Gran # [place] # (Auto) Metamyelocytes % 1 H Nucleated RBCs RBC Morphology Abnorm A Polychromasia Few A Hypochromasia Anisocytosis Few A ESR Chloride 92 L Anion Gap BUN 67 H Creatinine 7.5 H* Glucose 137 H Calcium 8.5 L Phosphorus 6.8 H* Magnesium 1.5 L Alkaline Phosphatase Total Protein 5.5 L Albumin 2.9 L Triglycerides Amylase Lipase Urine Protein 100 A Urine Occult Blood 0.2 A Urine RBC 2 H Urine WBC Ur Squamous Epith Cells 8 H Amorphous Crystals Mod A Urine Bacteria Few A 10/01/18 10/01/18 10/01/18 13:24 07:25 07:25 WBC 15.3 H RBC 3.39 L Hgb 9.1 L Hct 28.7 L RDW 15.3 H Lymph % (Auto) Gran # 11.1 H [place] # (Auto) 1.5 H Metamyelocytes % Nucleated RBCs RBC Morphology Polychromasia Hypochromasia Anisocytosis ESR Chloride 95 L Anion Gap BUN 73 H Creatinine 7.0 H* Glucose 128 H Calcium 8.5 L Phosphorus 6.3 H* Magnesium 1.5 L Alkaline Phosphatase 118 H Total Protein 5.8 L Albumin Triglycerides 202 H Amylase 196 H Lipase 115 H Urine Protein Urine Occult Blood Urine RBC Urine WBC Ur Squamous Epith Cells Amorphous Crystals Urine Bacteria 10/01/18 09/30/18 09/30/18 07:12 05:15 05:15 WBC 12.9 H RBC 3.22 L Hgb 8.8 L Hct 27.2 L RDW 15.8 H Lymph % (Auto) Gran # 9.2 H [place] # (Auto) 1.5 H Metamyelocytes % 1 H Nucleated RBCs RBC Morphology Abnorm A Polychromasia Hypochromasia Anisocytosis Few A ESR Chloride Anion Gap BUN 75 H Creatinine 5.9 H* Glucose Calcium 7.9 L Phosphorus 5.2 H Magnesium 1.1 L Alkaline Phosphatase 120 H Total Protein 5.7 L Albumin Triglycerides 216 H Amylase Lipase 148 H Urine Protein Urine Occult Blood Urine RBC Urine WBC Ur Squamous Epith Cells Amorphous Crystals Urine Bacteria 0209/29/18 09/29/18 10:50 10:30 10:30 WBC RBC Hgb Hct RDW Lymph % (Auto) Gran # [place] # (Auto) Metamyelocytes % Nucleated RBCs 1 H RBC Morphology Abnorm A Polychromasia Hypochromasia 1+ A Anisocytosis 1+ A ESR Chloride Anion Gap BUN Creatinine Glucose Calcium Phosphorus Magnesium Alkaline Phosphatase Total Protein Albumin Triglycerides Amylase Lipase 247 H Urine Protein 100 A Urine Occult Blood >=1.0 A Urine RBC > 182 H Urine WBC 5 H Ur Squamous Epith Cells 7 H Amorphous Crystals Urine Bacteria Few A 09/29/18 09/29/18 09/29/18 10:30 10:30 10:30 WBC 20.7 H RBC 3.74 L Hgb 10.1 L Hct 31.3 L RDW 15.8 H Lymph % (Auto) 14.0 L Gran # 15.5 H [place] # (Auto) 2.3 H Metamyelocytes % Nucleated RBCs RBC Morphology Polychromasia Hypochromasia Anisocytosis ESR 39 H Chloride 95 L Anion Gap 17.0 H BUN 81 H Creatinine 5.4 H* Glucose 123 H Calcium 8.4 L Phosphorus Magnesium Alkaline Phosphatase 143 H Total Protein Albumin Triglycerides Amylase Lipase Urine Protein Urine Occult Blood Urine RBC Urine WBC Ur Squamous Epith Cells Amorphous Crystals Urine Bacteria Meds: Medications Acetaminophen (Tylenol) 650 mg PO Q6HP PRN PRN Reason: PAIN/FEVER > 101 Amlodipine Besylate (Norvasc) 10 mg PO DAILY [facility] Last Admin: 10/01/18 11:06 Dose: Not Given Documented by: Atorvastatin Calcium (Lipitor) 20 mg PO HS [facility] Last Admin: 10/01/18 21:51 Dose: 20 mg Documented by: Bisacodyl (Dulcolax) 10 mg MT Q2-3DAYS PRN PRN Reason: Constipation Carvedilol (Coreg) 25 mg PO BIDCC [facility] Last Admin: 10/01/18 17:08 Dose: 25 mg Documented by: Ceftriaxone Sodium (Rocephin) 1 gm IV Q24H [facility] Last Admin: 10/01/18 14:00 Dose: 1 gm Documented by: Diagnostic Test (Pha) (Accu-Chek) 1 each FS ACHS [facility] Last Admin: 10/02/18 07:27 Dose: 1 each Documented by: Docusate Sodium (Colace) 100 mg PO BID [facility] Last Admin: 10/01/18 21:50 Dose: 100 mg Documented by: Famotidine (Pepcid) 20 mg PO QHS [facility] Last Admin: 10/01/18 21:51 Dose: 20 mg Documented by: Furosemide (Lasix) 120 mg PO BID [facility] Last Admin: 10/01/18 21:50 Dose: 120 mg Documented by: Ciprofloxacin (Cipro) 400 mg in 200 mls @ 200 mls/hr IV Q24H [facility] Last Infusion: 10/01/18 15:13 Dose: Infused Documented by: Magnesium Sulfate 8.12 meq/ (Dextrose) 52 mls @ 104 mls/hr IV ONCE ONE Stop: 10/02/18 08:29 Insulin Human Lispro (Humalog) 0 unit SQ ACHS [facility]; Protocol Last Admin: 10/02/18 07:28 Dose: Not Given Documented by: Lidocaine (Lidoderm) 1 patch TOPICAL PRN PRN PRN Reason: Pain Lisinopril (Zestril) 5 mg PO BID [facility] Last Admin: 10/01/18 21:52 Dose: Not Given Documented by: Loperamide HCl (Imodium) 2 mg PO PRN PRN PRN Reason: Diarrhea Morphine Sulfate (Morphine) 2 mg IV Q3HP PRN PRN Reason: PAIN LEVEL > 6 Ondansetron HCl (Zofran) 4 mg IV Q6HP PRN PRN Reason: Nausea And Vomiting Last Admin: 10/02/18 07:13 Dose: 4 mg Documented by: Ondansetron HCl (Zofran Odt) 4 mg SL DAILY [facility] Last Admin: 10/01/18 11:03 Dose: 4 mg Documented by: Fluticasone/Salmeterol Hfa 230/21 Mcg Inhaler 1 dose INH BID [facility] Last Admin: 10/01/18 21:55 Dose: Not Given Documented by: Phenazopyridine HCl (Pyridium) 200 mg PO TIDP [facility] Stop: 10/03/18 17:01 Last Admin: 10/02/18 03:41 Dose: 200 mg Documented by: Prochlorperazine (Compazine) 5 mg IV Q4HP PRN PRN Reason: Nausea And Vomiting Sevelamer Carbonate (Renvela) 1,600 mg PO TIDCC [facility] Last Admin: 10/01/18 17:08 Dose: 1,600 mg Documented by: Sodium Chloride (Saline Flush) 10 ml IV Q8 [facility] Last Admin: 10/02/18 06:29 Dose: Not Given Documented by: Trazodone HCl (Desyrel) 50 mg PO QHS [facility] Last Admin: 10/01/18 21:51 Dose: 50 mg Documented by: Medical - PN: A/P - Time Spent With Patient Total time spent is greater than 50% in coordination of care (as documented) at patient's floor/unit and/or counseling patient: - Narrative A/P Narrative: A: *Acute RUQ/RLL/LLQ abd pain: ?rupture/hemorrhage of a renal cyst vs passing of kidney stone vs less likely pancreatitis. sounds like she is also been having some referred pain likely from polycystic kidneys -lipase mildy elevated but pain not typical, noncontrast CT no obvious cause -GB u/s unremarkable -peritoneal fluid not infected -f/u CT a/p and pelvic u/s unremarkable -had unremarkable EGD/colonoscopy last april *Leukocytosis/fever on admit: reactive vs infectious. 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 Russ *Anemia, chronic: *DM: *COPD (not on home O2): *Anxiety/depression *HTN/HLD *GERD *Hypomag: P: -full liquids to ADA -Nephrology following, PD and aranesp prn -rocephin given listed allergy to cipro, however, tolerated in ED and will transition back, pending BC -f/u lipase/anrdeina -prn electrolyte replacement -d/w outpt with her GI -ppx: heparin/pepcid d/c planning for AM Medical - PN: Qual - Stroke Symptom Onset Unknown: No - VTE Deep Vein Thrombosis/Pulmonary Embolism Present on Admission: No
[2018-10-02 07:55] LABS: Amylase 140 U/L (28-100); Lipase 85 U/L (7-60)
[2018-10-02] MEDS ORDERED: MAGNESIUM SULFATE 8.12 MEQ in DEXTROSE 5% IN WATER 50 ML IV ONE (08:00)
[2018-10-02] MEDS ORDERED: MAGNESIUM SULFATE 8.12 MEQ/2 ML VIAL IV ONE (08:00)
[2018-10-02] MEDS: SEVELAMER 800 MG TABLET PO SCH ×3 (08:04→17:40)
[2018-10-02] MEDS: CARVEDILOL 12.5 MG TABLET PO SCH ×2 (08:04→17:40)
[2018-10-02] MEDS: MAGNESIUM SULFATE 2 GM/50 ML BAG IV ONE ×2 (08:12→09:17)
[2018-10-02] MEDS: cefTRIAXone 1 GM VIAL IV SCH (08:51)
[2018-10-02] MEDS: DOCUSATE SODIUM 100 MG CAPSULE PO SCH ×2 (08:59→20:58)
[2018-10-02] MEDS: LISINOPRIL 5 MG TABLET PO SCH ×2 (08:59→20:59)
[2018-10-02] MEDS: amLODIPine 10 MG TABLET PO SCH (08:59)
[2018-10-02] MEDS: FUROSEMIDE 40 MG TABLET PO SCH ×2 (08:59→20:58)
[2018-10-02] MEDS: SALMETEROL INH SCH ×2 (09:04→21:02)
[2018-10-02] MEDS: FLUTICASONE INH SCH ×2 (09:04→21:02)
[2018-10-02] MEDS ORDERED: PHENAZOPYRIDINE 200 MG TABLET PO PRN (09:50)
[2018-10-02] MEDS: CIPROFLOXACIN 400 MG/200 ML BAG IV SCH (09:57)
--- NOTE | 2018-10-02 10:39 | Discharge Summary ---
Medical - DS: Prov Patient information: Note initiated : 10/02/18 at 10:37 am Service Date, if different from initiated Date: [] Patient: Ema Vang 78 y/o F admitted on 09/29/18 for abdominal pain. Chief Complaint: [] Date of admission: 09/29/18 15:00 Discharge date: 10/03/18 Primary care physician: kSy Ceja Consults: 09/29/18 10:46 Consult to Physician [CONS] Stat Comment: Consulting Provider: Kavon Gorman Reason For Exam: Physician to Consult 09/29/18 12:30 Consult to Physician [CONS] Stat Comment: Consulting Provider: Paulo Danielle Reason For Exam: Physician to Consult Medical - DS: Meds - Discharge Medications Active and Home Medications: Home Medications carvedilol 25 mg tablet 25 mg PO BID tab 01/29/15 [History Confirmed 09/29/18 Last Taken 07/29/18] fluticasone 250 mcg-salmeterol 50 mcg/dose blistr powdr for inhalation 1 puff INHALATION BID #1 each 08/28/15 [Rx Confirmed 09/29/18 Last Taken Unknown] gentamicin 0.1 % topical cream 1 applic TOPICAL QDAY #30 g 10/26/17 [Rx Confirmed 09/29/18 Last Taken 07/30/18] sevelamer carbonate 800 mg tablet 1,600 mg PO TID 90 Days #540 tab 10/30/17 [Rx Confirmed 09/29/18 Last Taken 07/30/18] B complex 11-folic acid 1 mg-C 100 mg-biotin 300 mcg-zinc 50 mg tablet 1 tab PO QDAY #90 tab 05/30/18 [Rx Confirmed 09/30/18 Last Taken 07/29/18] trazodone 50 mg tablet 50 mg PO QHS #90 tab 07/09/18 [Rx Confirmed 09/29/18 Last Taken 07/29/18] Cinacalcet [Sensipar] 60 mg PO DAILY 07/30/18 [History Confirmed 09/29/18 Last Taken 07/30/18] Furosemide [Lasix] 40 mg PO DAILY 07/30/18 [History Confirmed 09/30/18 Last Taken 07/29/18] Lidocaine 1 patch TOPICAL PRN PRN 07/30/18 [History Confirmed 09/29/18 Last Taken Unknown] Lisinopril [Zestril] 1 tab PO BID 07/30/18 [History Confirmed 09/29/18 Last Taken 07/29/18] Sensipar 30 mg PO HS 07/30/18 [History Confirmed 09/29/18 Last Taken 07/29/18] Zofran 8 mg PO Q8HP PRN 07/30/18 [History Confirmed 09/29/18 Last Taken 07/29/18] Loperamide [Imodium] 2 mg PO PRN PRN #30 cap 08/02/18 [Rx Confirmed 09/29/18 Last Taken Unknown] Ondansetron [Zofran ODT] 4 mg SL DAILY #30 tab 08/02/18 [Rx Confirmed 09/29/18 Last Taken Unknown] atorvastatin 20 mg tablet 20 mg PO QDAY #90 tab 08/27/18 [Rx Confirmed 09/29/18 Last Taken Unknown] amlodipine 5 mg tablet 10 mg PO QDAY #180 tab 09/07/18 [Rx Confirmed 09/29/18 Last Taken Unknown] furosemide 80 mg tablet 120 mg PO BID #270 tab 09/27/18 [Rx Confirmed 09/29/18 Last Taken Unknown] Medical - DS: Hosp Hospital course: Ms. Vang is a 78 year old F with a history of end-stage renal disease on peritoneal dialysis, diabetes, COPD, depression anxiety, chronic diarrhea who presents with abdominal pain acutely. Patient reports that last night while starting to watching TV while she was sitting on the couch developed sudden severe pain in her abdominal lower quadrants bilaterally. Pain is described as a crampy pain she thought she had gas or had to go to the bathroom, rated at 10 out of 10. She took a pain medication which she said was oxycodone and was able to fall asleep but she was only asleep for a few hours. And still had pain. This morning she still had pain which is not rhythm improved and thus brought her in the ER. In the ED she did receive some pain medications by the time I saw her she said her pain was down to a 6 and appears comfortable in bed. She was feeling fine up to this point no recent illnesses no sick contacts no trauma or sudden twisting of her trunk. She did note that she did have some sharp flank pain on that right side for the past 3 weeks and did see her primary care provider for it. In the ED workup showed vital signs are essentially stable with a heart rate 92- 98 other parameters within normal limits. She did have a leukocytosis, again was afebrile. Lactic acid was within normal limits, urinalysis unremarkable for an infectious signs, but did have RBCs present. Noncontrast CT abdomen pelvis showed no acute pathology, no evidence of free intraperitoneal fluid intra-abdominal abscess or pneumoperitoneum or pneumatosis. Did show already known multiple large renal cysts. Dr. Alarcon saw the patient in the ED. Patient denies any epigastric pain. Lipase mildly elevated at 247. Concern for possible rupture of 1 of her renal cysts, antibiotic started given leukocytosis and concern for possibly infected cyst. She had a normal bowel movement last night. She did take a suppository last night after the pain started because that she previously stated felt like she needed to have a bowel movement but was not able to go. 09/30 No overnight events. Abdominal pain is less severe today. He has some nausea and retching. Tolerating clear liquid diet well. Did not have any reaction to Cipro, will switch back Rocephin to Cipro per nephro note. Getting PD right now. Gallbladder ultrasound unremarkable. 10/01 States his abdominal pain again especially lower quadrants, has not had a bowel movement since Monday. States she has burning when she urinates 10/02 Pain improving. She did have some nausea after medication this morning. No other new complaints other than wants an advance in her diet. No obvious source no acute pathology noted on imaging. Could be related to passed kidney stone versus musculoskeletal versus cyst. - Time Spent with Patient Total time spent providing and/or coordinating discharge services: Greater than 30 minutes Medical - DS: Exam - Constitutional Vitals: Vital Signs Temp Pulse Resp BP BP BP Pulse Ox 10/02/18 09:05 126/52 10/02/18 08:27 98.8 F 117/63 10/02/18 08:07 68 10/02/18 07:57 97.9 F 20 119/56 91 10/02/18 03:34 98.4 F 77 20 116/55 96 10/02/18 00:40 114/57 10/01/18 23:19 98.9 F 67 20 92/44 97 10/01/18 20:03 99.2 F H 104/42 10/01/18 19:19 99.2 F H 72 20 104/49 91 10/01/18 16:01 94 10/01/18 15:12 99 F 16 135/70 90 10/01/18 11:08 98.6 F 87 16 93/50 94 Intake and Output 10/01/18 10/02/18 10/02/18 21:59 05:59 13:59 Intake Total 400 225 52 Output Total 65 150 225 Balance 335 75 -173 Intake: IV 200 52 Magnesium Sulfate 8.12 Meq In 52 Dextrose 5% in Water 50 ml @ 104 mls/hr IV ONCE ONE Rx#: [id number] Oral 200 225 Output: Void Amount 65 150 225 Other: Meal Dinner Breakfast Percent of Meal Consumed 100% 50% Urine Color Dark Yellow [place] # Voids 1 Weight 73.709 kg Medical - DS: Data Labs on day of discharge: Labs from last 24 hours 10/02/18 10/02/18 10/02/18 04:08 04:08 04:08 WBC 14.1 H RBC 3.09 L Hgb 8.4 L Hct 26.3 L MCV 85.2 MCH 27.3 MCHC 32.0 RDW 15.7 H Plt Count 256 MPV 8.2 Total Counted 100 Seg Neutrophils % 71 Band Neutrophils % 1 Lymphocytes % 16 Monocytes % (Manual) 10 Eosinophils % (Manual) 1 Metamyelocytes % 1 H Platelet Estimate Normal RBC Morphology Abnorm A Polychromasia Few A Anisocytosis Few A Sodium 135 Potassium 3.6 Chloride 92 L Carbon Dioxide 27 Anion Gap 16.0 BUN 67 H Creatinine 7.5 H* GFR Calculation 5 Glucose 137 H Uric Acid 7.2 Calcium 8.5 L Phosphorus 6.8 H* Magnesium 1.5 L Total Bilirubin 0.2 Direct Bilirubin < 0.2 GGT 16 AST 5 ALT 5 Alkaline Phosphatase 110 Lactate Dehydrogenase 162 Total Protein 5.5 L Albumin 2.9 L Globulin 2.6 Albumin/Globulin Ratio 1.1 Triglycerides 125 Amylase 140 H Lipase 85 H Urine Color Urine Appearance Urine pH Ur Specific [place] Urine Protein Urine Glucose (UA) Urine Ketones Urine Occult Blood Urine Nitrate Urine Bilirubin Urine Urobilinogen Ur Leukocyte Esterase Urine RBC Urine WBC Ur Squamous Epith Cells Amorphous Crystals Urine Bacteria Urine Mucus Ur Culture Indicated? 10/01/18 10/01/18 15:00 13:24 WBC RBC Hgb Hct MCV MCH MCHC RDW Plt Count MPV Total Counted Seg Neutrophils % Band Neutrophils % Lymphocytes % Monocytes % (Manual) Eosinophils % (Manual) Metamyelocytes % Platelet Estimate RBC Morphology Polychromasia Anisocytosis Sodium Potassium Chloride Carbon Dioxide Anion Gap BUN Creatinine GFR Calculation Glucose Uric Acid Calcium Phosphorus Magnesium Total Bilirubin Direct Bilirubin GGT AST ALT Alkaline Phosphatase Lactate Dehydrogenase Total Protein Albumin Globulin Albumin/Globulin Ratio Triglycerides Amylase 196 H Lipase Urine Color Yellow Urine Appearance Hazy Urine pH 5.0 Ur Specific [place] 1.015 Urine Protein 100 A Urine Glucose (UA) Negative Urine Ketones Neg Urine Occult Blood 0.2 A Urine Nitrate Neg Urine Bilirubin Neg Urine Urobilinogen Neg Ur Leukocyte Esterase Neg Urine RBC 2 H Urine WBC 1 Ur Squamous Epith Cells 8 H Amorphous Crystals Mod A Urine Bacteria Few A Urine Mucus Few Ur Culture Indicated? No Preliminary micro results at discharge 09/29/18 11:10 Anaerobic Culture - Preliminary Peritoneal Dialysis Fluid Aerobic Culture - Preliminary 09/29/18 12:17 Blood Culture - Preliminary Blood 09/29/18 12:03 Blood Culture - Preliminary Blood Medical - DS: A/P - Patient/Caregiver Discharge Instructions Activity: increase activity as tolerated Diet: Renal - Follow up Plan Follow up with: Sky Ceja MD [Primary Care Provider] - Fany Russ MD [Physician] - Prognosis: Fair Rehab Potential: Fair Medical - DS: Qual - VTE Deep Vein Thrombosis/Pulmonary Embolism Present on Admission: No
[2018-10-02] MEDS: ONDANSETRON 4 MG ODT TABLET SL SCH (12:11)
[2018-10-02] MEDS ORDERED: SENNOSIDES 1 TABLET PO ONE (13:31)
[2018-10-02] MEDS: FAMOTIDINE 20 MG TABLET PO SCH (20:58)
[2018-10-02] MEDS: ATORVASTATIN 20 MG TABLET PO SCH (20:58)
[2018-10-02] MEDS: traZODone HCL 50 MG TABLET PO SCH (21:05)
[2018-10-03] MEDS: ONDANSETRON 4 MG/2 ML VIAL IV PRN (05:55)
--- NOTE | 2018-10-03 06:47 | Nephrology Progress Note ---
Subjective Patient information: Note initiated : 10/03/18 at 6:45 am Patient: Ema Vang 78 y/o F admitted on 09/29/18 for abdominal pain. Chief Complaint: Abdominal pain Principal diagnosis: Abdominal pain Pertinent ROS: Dysuria Nausea and vomiting on and off No flank pain No diarrhea No dysuria No edema Objective - Vital Signs Vital signs: Vital Signs Temp Pulse Resp BP BP Pulse Ox 10/03/18 03:25 98.2 F 69 18 138/63 93 10/02/18 22:51 97.7 F 66 18 128/58 95 10/02/18 20:16 20 90 10/02/18 19:49 98.1 F 130/65 10/02/18 18:56 98.1 F 72 22 130/65 94 10/02/18 16:00 96.7 F L 72 20 120/59 90 10/02/18 13:17 97.9 F 70 20 117/59 91 10/02/18 13:15 86 L 10/02/18 12:00 98.1 F 73 20 115/59 91 10/02/18 09:05 126/52 10/02/18 08:27 98.8 F 117/63 10/02/18 08:07 68 10/02/18 07:57 97.9 F 20 119/56 91 Intake and Output 10/02/18 10/03/18 10/03/18 21:59 05:59 13:59 Intake Total 390 250 Output Total 275 100 Balance 115 150 Intake: Oral 390 250 Output: Void Amount 225 100 Emesis 50 Other: Meal Dinner Percent of Meal Consumed 50% Urine Appearance Clear Clear Urine Color [employer] Dark Yellow Urine Odor Normal Normal Weight 161 lb 8 oz Intake & Output: Intake & Output 10/02/18 10/03/18 10/03/18 21:59 05:59 13:59 Intake Total 390 250 Output Total 275 100 Balance 115 150 Weight 161 lb 8 oz Intake: Oral 390 250 Output: Void Amount 225 100 Emesis 50 Other: Meal Dinner Percent of Meal Consumed 50% Urine Appearance Clear Clear Urine Color [employer] Dark Yellow Urine Odor Normal Normal - General Appearance General appearance: appears started age, fatigue EENT: mucous membranes moist Neck: supple Respiratory: clear Cardiology: no edema Gastrointestinal: no tenderness Integumentary: no rash, warm and dry Neurologic: no focal deficit, alert and oriented x3 Musculoskeletal: no deformities Psychiatric: mood/affect appropriate, cooperative - Lab 10/03/18 10:16 10/03/18 10:16 Most recent lab results Calcium 8.5 mg/dl (8.6-10.4) L 10/02/18 04:08 Phosphorus 6.8 mg/dL (2.7-4.5) H* 10/02/18 04:08 Magnesium 1.5 mg/dL (1.6-2.5) L 10/02/18 04:08 Assessment and Plan (1) ESRD on peritoneal dialysis Ema Vang is a 78-year-old female with end-stage renal disease on chronic peritoneal dialysis (followed by Dr. 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 She reported sudden onset abdominal pain (at 8:30PM last night), generalized, but mostly lower abdominal, constant not crampy, never resolved since started, associated with nausea and vomiting (not coffee ground or bloody), no diarrhea or constipation. Last BM yesterday light brown. PD fluid clear. No problems with PD dwell or drain. urine looked somewhat bloody but no dysuria. She has been on Prednisone taper off for arthritis. No other new medications. Suspected cyst rupture/hemorrhage or nephrolithiasis due to sudden onset abdominal pain. Suspected cyst infection due to leukocytosis, however this could also be due to Prednisone she was recently started. Suspected acute pancreatitis due to lipase elevation. Recent work up: EGD on 05/04/18: Schatzki's ring. Gastric polyp. Query celiac. Colonoscopy on 05/04/18: Colonic polyps. Query microscopic colitis. CT Abdomen and Pelvis on 07/30/18: Pneumoperitoneum. This is probably iatrogenic secondary to peritoneal dialysis catheter. Multiple large renal cysts consistent with polycystic kidney disease. No hydronephrosis . Mild diverticulosis. No evidence for diverticulitis. Extensive calcified atherosclerotic disease. Work up: Labs on 09/29/18: PD Fluid cell count: Nucleated cells 16, 10% neutrophils Gram stain no polys, no organism Culture pending CT KUB on 09/29/18: History of polycystic kidney disease and renal failure. Extensive atherosclerotic disease. No abdominal aortic aneurysm. No acute or focal abnormality. CT Abdomen and Pelvis with oral contrast on 10/01/18: Polycystic kidney disease. Patient is on peritoneal dialysis. There is intraperitoneal fluid which may be dialysate. No acute intra-abdominal abnormality. Progress: Tolerating full liquid diet Complaining of dysuria No signs of fluid overload Plan: Continue CCPD with total volume 7,200 ml, 4 exchanges of 1,800 ml, 1.5%, total time 9 hours. Status: Chronic Priority: Medium (2) Anemia due to end stage renal disease Aranesp 40 mcg IV x 1 on 09/30/18 for Hb <10 Status: Chronic Priority: Medium (3) Secondary hyperparathyroidism of renal origin Sensipar discontinued due to hypocalcemia Status: Chronic Priority: Medium (4) Hypomagnesemia Associated with loop diuretics and peritoneal dialysis Being replaced as needed Status: Acute Priority: Medium
[2018-10-03] MEDS: 0.9 % SODIUM CHLORIDE 10 ML SYRINGE IV SCH ×3 (08:15→21:30)
[2018-10-03] MEDS: ONDANSETRON 4 MG ODT TABLET SL SCH (08:28)
[2018-10-03] MEDS ORDERED: LACTULOSE 20 GM/30 ML ORAL.SOL PO ONE (08:30)
[2018-10-03] MEDS: DOCUSATE SODIUM 100 MG CAPSULE PO SCH ×2 (08:31→21:22)
--- NOTE | 2018-10-03 08:31 | Internal Med Progress Note ---
Medical - PN: Subj Patient information: Note initiated : 10/03/18 at 8:31 am Service Date, if different from initiated Date: [] Patient: Ema Vang a 78 y/o F admitted on 09/29/18 for abdominal pain. Chief Complaint: [] Interval history: Ms. Vang is a 78 year old F with a history of end-stage renal disease on peritoneal dialysis, diabetes, COPD, depression anxiety, chronic diarrhea who presents with abdominal pain acutely. Patient reports that last night while starting to watching TV while she was sitting on the couch developed sudden severe pain in her abdominal lower quadrants bilaterally. Pain is described as a crampy pain she thought she had gas or had to go to the bathroom, rated at 10 out of 10. She took a pain medication which she said was oxycodone and was able to fall asleep but she was only asleep for a few hours. And still had pain. This morning she still had pain which is not rhythm improved and thus brought her in the ER. In the ED she did receive some pain medications by the time I saw her she said her pain was down to a 6 and appears comfortable in bed. She was feeling fine up to this point no recent illnesses no sick contacts no trauma or sudden twisting of her trunk. She did note that she did have some sharp flank pain on that right side for the past 3 weeks and did see her primary care provider for it. In the ED workup showed vital signs are essentially stable with a heart rate 92- 98 other parameters within normal limits. She did have a leukocytosis, again was afebrile. Lactic acid was within normal limits, urinalysis unremarkable for an infectious signs, but did have RBCs present. Noncontrast CT abdomen pelvis showed no acute pathology, no evidence of free intraperitoneal fluid intra-abdominal abscess or pneumoperitoneum or pneumatosis. Did show already known multiple large renal cysts. Dr. Alarcon saw the patient in the ED. Patient denies any epigastric pain. Lipase mildly elevated at 247. Concern for possible rupture of 1 of her renal cysts, antibiotic started given leukocytosis and concern for possibly infected cyst. She had a normal bowel movement last night. She did take a suppository last night after the pain started because that she previously stated felt like she needed to have a bowel movement but was not able to go. 09/30 No overnight events. Abdominal pain is less severe today. He has some nausea and retching. Tolerating clear liquid diet well. Did not have any reaction to Cipro, will switch back Rocephin to Cipro per nephro note. Getting PD right now. Gallbladder ultrasound unremarkable. 10/01 States his abdominal pain again especially lower quadrants, has not had a bowel movement since Monday. States she has burning when she urinates 10/02 Pain improving. She did have some nausea after medication this morning. No other new complaints other than wants an advance in her diet 10/03 Nausea vomitus morning. Abdominal pain, requiring decreased prn pain medications. no BM yet. Continues to have dysuria. Review of Systems: denies headache/fever/chills/chest pain/cough/dyspnea/diarrhea. Otherwise see above. - Constitutional Vitals: Vital Signs Temp Pulse Resp BP Pulse Ox 97.8 F 70 18 123/56 93 10/03/18 07:53 10/03/18 07:53 10/03/18 07:53 10/03/18 07:53 10/03/18 03:25 Period Temp Pulse Resp BP Sys/Hartman Pulse Ox Last 24 Hr 96.7 F-98.2 F 66-73 18-22 115-138/52-65 86-95 Intake and Output 10/02/18 10/03/18 10/03/18 21:59 05:59 13:59 Intake Total 390 250 Output Total 275 100 Balance 115 150 Weight 73.255 kg Intake & Output: Intake & Output 10/02/18 10/03/18 10/03/18 21:59 05:59 13:59 Intake Total 390 250 Output Total 275 100 Balance 115 150 Weight 73.255 kg Intake: Oral 390 250 Output: Void Amount 225 100 Emesis 50 Other: Meal Dinner Percent of Meal Consumed 50% Urine Appearance Clear Clear Urine Color [place] Dark Yellow Urine Odor Normal Normal Exam: General: Alert, Awake, No acute Distress Eyes/N/T: EOMI, Head/Neck: neck supple, CV: regular, 2/6 SM Pulm: diminished, no wheezing Abd: soft, very minimal generalized TTP, +BS x4, Ext: no clubbing/cyanosis, trace b/l LE edema Neuro: Alert, no focal deficits, moves all extremities, Skin: warm/dry Medical - PN: Obj Da - Labs CBC & Chem 7: 10/02/18 04:08 10/02/18 04:08 Labs: Abnormal Lab Results 10/02/18 10/02/18 10/02/18 04:08 04:08 04:08 WBC 14.1 H RBC 3.09 L Hgb 8.4 L Hct 26.3 L RDW 15.7 H Gran # Greene # (Auto) Metamyelocytes % 1 H RBC Morphology Abnorm A Polychromasia Few A Anisocytosis Few A Chloride 92 L BUN 67 H Creatinine 7.5 H* Glucose 137 H Calcium 8.5 L Phosphorus 6.8 H* Magnesium 1.5 L Alkaline Phosphatase Total Protein 5.5 L Albumin 2.9 L Triglycerides Amylase 140 H Lipase 85 H Urine Protein Urine Occult Blood Urine RBC Ur Squamous Epith Cells Amorphous Crystals Urine Bacteria 10/01/18 10/01/18 10/01/18 15:00 13:24 07:25 WBC RBC Hgb Hct RDW Gran # Greene # (Auto) Metamyelocytes % RBC Morphology Polychromasia Anisocytosis Chloride 95 L BUN 73 H Creatinine 7.0 H* Glucose 128 H Calcium 8.5 L Phosphorus 6.3 H* Magnesium 1.5 L Alkaline Phosphatase 118 H Total Protein 5.8 L Albumin Triglycerides 202 H Amylase 196 H Lipase 115 H Urine Protein 100 A Urine Occult Blood 0.2 A Urine RBC 2 H Ur Squamous Epith Cells 8 H Amorphous Crystals Mod A Urine Bacteria Few A 10/01/18 10/01/18 07:25 07:12 WBC 15.3 H RBC 3.39 L Hgb 9.1 L Hct 28.7 L RDW 15.3 H Gran # 11.1 H Greene # (Auto) 1.5 H Metamyelocytes % 1 H RBC Morphology Abnorm A Polychromasia Anisocytosis Few A Chloride BUN Creatinine Glucose Calcium Phosphorus Magnesium Alkaline Phosphatase Total Protein Albumin Triglycerides Amylase Lipase Urine Protein Urine Occult Blood Urine RBC Ur Squamous Epith Cells Amorphous Crystals Urine Bacteria Meds: Medications Acetaminophen (Tylenol) 650 mg PO Q6HP PRN PRN Reason: PAIN/FEVER > 101 Amlodipine Besylate (Norvasc) 10 mg PO DAILY [facility] Last Admin: 10/02/18 08:59 Dose: 10 mg Documented by: Atorvastatin Calcium (Lipitor) 20 mg PO HS [facility] Last Admin: 10/02/18 20:58 Dose: 20 mg Documented by: Bisacodyl (Dulcolax) 10 mg IN Q2-3DAYS PRN PRN Reason: Constipation [facility] Last Admin: 10/02/18 17:40 Dose: 25 mg Documented by: Ceftriaxone Sodium (Rocephin) 1 gm IV Q24H [facility] Last Admin: 10/02/18 08:51 Dose: 1 gm Documented by: Diagnostic Test (Pha) (Accu-Chek) 1 each FS [facility] Last Admin: 10/03/18 07:30 Dose: 1 each Documented by: Docusate Sodium (Colace) 100 mg PO BID [facility] Last Admin: 10/02/18 20:58 Dose: 100 mg Documented by: Famotidine (Pepcid) 20 mg PO QHS [facility] Last Admin: 10/02/18 20:58 Dose: 20 mg Documented by: Furosemide (Lasix) 120 mg PO BID [facility] Last Admin: 10/02/18 20:58 Dose: 120 mg Documented by: Insulin Human Lispro (Humalog) 0 unit SQ [facility]; Protocol Last Admin: 10/02/18 21:05 Dose: 4 units Documented by: Lactulose (Cephulac) 10 gm PO ONCE ONE Stop: 10/03/18 08:31 Lidocaine (Lidoderm) 1 patch TOPICAL PRN PRN PRN Reason: Pain Lisinopril (Zestril) 5 mg PO BID [facility] Last Admin: 10/02/18 20:59 Dose: Not Given Documented by: Loperamide HCl (Imodium) 2 mg PO PRN PRN PRN Reason: Diarrhea Morphine Sulfate (Morphine) 1 mg IV Q3HP PRN PRN Reason: PAIN LEVEL > 6 Last Admin: 10/02/18 12:12 Dose: 1 mg Documented by: Ondansetron HCl (Zofran) 4 mg IV Q6HP PRN PRN Reason: Nausea And Vomiting Last Admin: 10/03/18 05:55 Dose: 4 mg Documented by: Ondansetron HCl (Zofran Odt) 4 mg SL DAILY [facility] Last Admin: 10/02/18 12:11 Dose: 4 mg Documented by: Fluticasone/Salmeterol Hfa 230/21 Mcg Inhaler 1 dose INH BID [facility] Last Admin: 10/02/18 21:02 Dose: Not Given Documented by: Prochlorperazine (Compazine) 5 mg IV Q4HP PRN PRN Reason: Nausea And Vomiting Sevelamer Carbonate (Renvela) 1,600 mg PO TIDCC [facility] Last Admin: 10/02/18 17:40 Dose: 1,600 mg Documented by: Sodium Chloride (Saline Flush) 10 ml IV Q8 [facility] Last Admin: 10/03/18 08:15 Dose: Not Given Documented by: Trazodone HCl (Desyrel) 50 mg PO QHS [facility] Last Admin: 10/02/18 21:05 Dose: 50 mg Documented by: Medical - PN: A/P - Time Spent With Patient Total time spent is greater than 50% in coordination of care (as documented) at patient's floor/unit and/or counseling patient: - Narrative A/P Narrative: A: *Acute RUQ/RLL/LLQ abd pain: ?rupture/hemorrhage of a renal cyst vs passing of kidney stone vs less likely pancreatitis. sounds like she is also been having some referred pain likely from polycystic kidneys -lipase mildy elevated but pain not typical, noncontrast CT no obvious cause -GB u/s unremarkable -peritoneal fluid not infected -f/u CT a/p and pelvic u/s unremarkable -had unremarkable EGD/colonoscopy last april -IMPROVED but having N/V *Leukocytosis: reactive vs infectious. ?infected cyst vs other -UA unremarkable, no respiratory symptoms -improving -component of which initially was likely recent medrol dose pack for OA *ESRD 2/2 Polycystic Kidney dz w/PD: follows with Dr. Russ *Anemia, chronic: *DM: *COPD (not on home O2, but uses husbands from time to time especially when she has a cold): *Anxiety/depression *HTN/HLD *GERD *Hypomag: P: -decreased diet back to full liquid -Nephrology following, PD and aranesp prn -rocephin given listed allergy to cipro, however, tolerated in ED and will transition back, pending BC -f/u lipase/andreina -prn electrolyte replacement -d/w GI -home O2 eval prior to d/c -f/u with for dysuria -ppx: heparin/pepcid Medical - PN: Qual - Stroke Symptom Onset Unknown: No - VTE Deep Vein Thrombosis/Pulmonary Embolism Present on Admission: No
[2018-10-03] MEDS: SEVELAMER 800 MG TABLET PO SCH ×3 (08:32→18:04)
[2018-10-03] MEDS: cefTRIAXone 1 GM VIAL IV SCH (09:04)
[2018-10-03] MEDS: INSULIN LISPRO 1 UNIT/0.01 ML UNIT SQ SCH ×4 (09:04→21:22)
[2018-10-03] MEDS: FLUTICASONE INH SCH ×2 (09:06→21:24)
[2018-10-03] MEDS: amLODIPine 10 MG TABLET PO SCH (09:06)
[2018-10-03] MEDS: CARVEDILOL 12.5 MG TABLET PO SCH ×2 (09:06→18:04)
[2018-10-03] MEDS: LISINOPRIL 5 MG TABLET PO SCH (09:06)
[2018-10-03] MEDS: FUROSEMIDE 40 MG TABLET PO SCH ×2 (09:06→21:21)
[2018-10-03] MEDS: SALMETEROL INH SCH ×2 (09:06→21:24)
[2018-10-03] MEDS ORDERED: LORazepam 2 MG/ML VIAL IV PRN (09:40)
[2018-10-03] MEDS ORDERED: diphenhydrAMINE 50 MG/ML VIAL IV PRN (09:40)
[2018-10-03] MEDS: PROCHLORPERAZINE 10 MG/2 ML VIAL IV PRN (10:21)
[2018-10-03 10:51] LABS: Mean Cell Volume 84.5 fL (80.0-100.0); Mean Corpuscular HGB Conc 32.3 g/dL (31.0-36.0); Platelet Count 289 K/mcL (140-440); RBC 3.42 M/mcL (4.00-5.20)
[2018-10-03 11:29] LABS: Anisocytosis 1+ (NONE SEEN); Lymphocytes % 14 % (15-49); Monocytes % (Manual) 14 % (1-12); Platelet Estimate NORMAL (NORMAL); RBC Morphology ABNORM (NORMAL); Segmented Neutrophils % 72 % (38-78)
[2018-10-03 11:32] LABS: ALT/SGPT 5 U/l (0-40); Albumin 2.9 gm/dL (3.2-5.2); Albumin/Globulin Ratio 0.9 (1.0-2.3); Alkaline Phosphatase 117 U/L (39-117); Amylase 126 U/L (28-100); Bilirubin,Direct < 0.2 mg/dL (0.0-0.3); Blood Urea Nitrogen 64 mg/dl (8-23); C-Reactive Protein 22.3 mg/dl (0.0-0.8); Gamma Glutamyl Transpeptidase 20 U/L (5-36); Lipase 103 U/L (7-60); Uric Acid 7.5 mg/dL (2.5-8.0)
--- NOTE | 2018-10-03 14:59 | Event Note ---
Called by Dr. Danielle [patient's primary team] about persistent leukocytosis, and concerns for infection in this patient who was admitted for nonspecific abdominal pain. Patient has a history of end-stage renal disease, is on peritoneal dialysis. Preliminary investigations with the PD fluid cell count and cultures did not suggest infections. Other infectious workup including blood cultures and urine cultures have been no growth till date. Based on patient's review of ultrasound, elevated serum lipase and amylase, and nonspecific right-sided abdominal pain; I think she may have cholecystitis which needs to be to rule out. Of note her gallbladder ultrasound few days ago showed trace pericholecystic fluid and nonsignificant GB wall thickening. We will see patient tomorrow. Recommend repeating liver and gallbladder ultrasound, switching ceftriaxone 1 g every 24 to IV cefepime 1 g every 48 hours [as she has end-stage renal disease, is on peritoneal dialysis], repeat pro- calcitonin. Krunal Jacinto MD Infectious disease
--- NOTE | 2018-10-03 16:02 | Ultrasound Report ---
CLINICAL INFORMATION: Possible cholecystitis TECHNIQUE: Grayscale and color flow Doppler spectral imaging COMPARISON: Previous ultrasound dated 09/29/2018. Previous CT scan dated 10/01/2018 FINDINGS: There is biliary sludge in the dependent portions of the gallbladder. This is new since 09/29/2018. No discrete stones. Gallbladder wall measures 2 mm. There is minimal pericholecystic fluid but this may be residual ascitic fluid or fluid from peritoneal dialysis. Patient was not tender when scanned over the gallbladder. No dilated bowel extra common bile duct measures 4 mm. Liver measures 14 cm. Liver is slightly echogenic. No focal intrahepatic abnormalities. The contour is smooth. There is a possible pancreatic head mass. There is a 10 mm echogenic abnormality which is not visible on previous noncontrast enhanced CT scan. Contrast-enhanced CT scan recommended. This should be performed prior to dialysis. Kidneys are not evaluated IMPRESSION: 1. Mild biliary sludge in the dependent portion of the gallbladder. This is a new finding. No discrete calculi 2. No gallbladder wall thickening. There is minimal pericholecystic fluid which may be from peritoneal dialysis 3. Possible 10 mm pancreatic head mass. Further evaluation recommended as above Interpreted and Authenticated by: Kolby Dover 10/03/18
[2018-10-03] MEDS: CEFEPIME 2 GM VIAL IV SCH (16:15)
[2018-10-03] MEDS: FAMOTIDINE 20 MG TABLET PO SCH (21:22)
[2018-10-03] MEDS: ATORVASTATIN 20 MG TABLET PO SCH (21:22)
[2018-10-03] MEDS: traZODone HCL 50 MG TABLET PO SCH (21:30)
[2018-10-04] MEDS: LISINOPRIL 5 MG TABLET PO SCH ×3 (01:29→21:45)
[2018-10-04 06:14] LABS: C-Reactive Protein 15.7 mg/dl (0.0-0.8)
--- NOTE | 2018-10-04 06:31 | XRay Report ---
INDICATION: Hypoxia TECHNIQUE: AP chest x-ray,portable semiupright COMPARISON: None FINDINGS:Mild left basilar parenchymal density. This may represent atelectasis or small focus of pneumonia. Lungs are otherwise negative. Heart size and vascularity are within normal limits. No pulmonary edema. No pulmonary congestion. IMPRESSION: 1. Mild left basilar pulmonary parenchymal density 2. Otherwise negative AP chest x-ray Interpreted and Authenticated by: Kolby Dover 10/04/18
[2018-10-04] MEDS: PROCHLORPERAZINE 10 MG/2 ML VIAL IV PRN (07:00)
--- NOTE | 2018-10-04 07:03 | Nephrology Progress Note ---
Subjective Patient information: Note initiated : 10/04/18 at 7:01 am Patient: Ema Vang 78 y/o F admitted on 09/29/18 for abdominal pain. Chief Complaint: Abdominal pain Principal diagnosis: Abdominal pain Pertinent ROS: Abdominal pain and dysuria Nausea and vomiting on and off No flank pain No diarrhea No dysuria No edema Objective - Vital Signs Vital signs: Vital Signs Temp Pulse Resp BP BP BP Pulse Ox 10/04/18 04:35 98.0 F 66 20 116/58 90 10/03/18 23:45 98.3 F 62 20 108/48 90 10/03/18 20:09 98.7 F 103/51 10/03/18 19:23 98.7 F 75 20 103/51 91 10/03/18 15:57 98 F 75 16 124/58 91 10/03/18 11:40 98.2 F 70 14 106/54 10/03/18 10:00 67 18 129/53 92 10/03/18 07:53 97.8 F 70 18 123/56 Intake and Output 10/03/18 10/04/18 10/04/18 21:59 05:59 13:59 Intake Total 150 520 Output Total 325 250 Balance -175 270 Intake: Oral 150 520 Output: Void Amount 325 250 Other: Meal Lunch Percent of Meal Consumed 75% Feeding Ability Independent Urine Appearance Clear Clear Urine Color Straw Straw Urine Odor Normal Normal # Voids 2 Weight 160 lb 8 oz Intake & Output: Intake & Output 10/03/18 10/04/18 10/04/18 21:59 05:59 13:59 Intake Total 150 520 Output Total 325 250 Balance -175 270 Weight 160 lb 8 oz Intake: Oral 150 520 Output: Void Amount 325 250 Other: Meal Lunch Percent of Meal Consumed 75% Feeding Ability Independent Urine Appearance Clear Clear Urine Color [place]raw Urine Odor Normal Normal # Voids 2 - General Appearance General appearance: appears started age, fatigue EENT: mucous membranes moist Neck: supple Respiratory: clear Cardiology: no edema Gastrointestinal: no tenderness Integumentary: warm and dry Neurologic: no focal deficit, alert and oriented x3 Musculoskeletal: no deformities Psychiatric: mood/affect appropriate, cooperative - Lab 10/03/18 10:16 10/03/18 10:16 Most recent lab results Calcium 8.9 mg/dl (8.6-10.4) 10/03/18 10:16 Phosphorus 7.4 mg/dL (2.7-4.5) H* 10/03/18 10:16 Magnesium 1.8 mg/dL (1.6-2.5) 10/03/18 10:16 Assessment and Plan (1) ESRD on peritoneal dialysis Ema Vang is a 78-year-old female with end-stage renal disease on chronic peritoneal dialysis (followed by Dr. 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 She reported sudden onset abdominal pain (at 8:30PM last night), generalized, but mostly lower abdominal, constant not crampy, never resolved since started, associated with nausea and vomiting (not coffee ground or bloody), no diarrhea or constipation. Last BM yesterday light brown. PD fluid clear. No problems with PD dwell or drain. urine looked somewhat bloody but no dysuria. She has been on Prednisone taper off for arthritis. No other new medications. Renal cyst rupture/hemorrhage or nephrolithiasis considered due to sudden onset abdominal pain. Ciprofloxacin was given for suspected renal cyst infection due to leukocytosis, however this could also be due to Prednisone she was recently started. Acute pancreatitis suspected due to lipase elevation. Recent work up: EGD on 05/04/18: Schatzki's ring. Gastric polyp. Query celiac. Colonoscopy on 05/04/18: Colonic polyps. Query microscopic colitis. CT Abdomen and Pelvis on 07/30/18: Pneumoperitoneum. This is probably iatrogenic secondary to peritoneal dialysis catheter. Multiple large renal cysts consistent with polycystic kidney disease. No hydronephrosis . Mild diverticulosis. No evidence for diverticulitis. Extensive calcified atherosclerotic disease. Work up: Labs on 09/29/18: PD Fluid cell count: Nucleated cells 16, 10% neutrophils Gram stain no polys, no organism Culture pending CT KUB on 09/29/18: History of polycystic kidney disease and renal failure. Extensive atherosclerotic disease. No abdominal aortic aneurysm. No acute or focal abnormality. Gall bladder US on 10/09/18: Negative examination for cholelithiasis. Trace pericholecystic fluid. No other abnormality. CT Abdomen and Pelvis with oral contrast on 10/01/18: Polycystic kidney disease. Patient is on peritoneal dialysis. There is intraperitoneal fluid which may be dialysate. No acute intra-abdominal abnormality. Transvaginal US on 10/01/18: Mild free pelvic fluid. Previous hysterectomy. Ovaries are not visualized Gall bladder US on 10/03/18: Mild biliary sludge in the dependent portion of the gallbladder. This is a new finding. No discrete calculi. No gallbladder wall thickening. There is minimal pericholecystic fluid which may be from peritoneal dialysis. Possible 10 mm pancreatic head mass. Further evaluation recommended. Progress: Signs of fluid overload Plan: CCPD changed to 1.5/2.5% with total volume 7,200 ml, 4 exchanges of 1,800 ml, total time 9 hours. Status: Chronic Priority: Medium (2) Anemia due to end stage renal disease Aranesp 40 mcg IV x 1 on 09/30/18 for Hb <10 Status: Chronic Priority: Medium (3) Secondary hyperparathyroidism of renal origin Sensipar discontinued due to hypocalcemia Status: Chronic Priority: Medium
[2018-10-04] MEDS: INSULIN LISPRO 1 UNIT/0.01 ML UNIT SQ SCH ×4 (07:12→21:45)
--- NOTE | 2018-10-04 07:41 | Internal Med Progress Note ---
Medical - PN: Subj Patient information: Note initiated : 10/04/18 at 7:35 am Service Date, if different from initiated Date: [] Patient: Ema Vang a 78 y/o F admitted on 09/29/18 for abdominal pain. Chief Complaint: [] Interval history: Ms. Vang is a 78 year old F with a history of end-stage renal disease on peritoneal dialysis, diabetes, COPD, depression anxiety, chronic diarrhea who presents with abdominal pain acutely. Patient reports that last night while starting to watching TV while she was sitting on the couch developed sudden severe pain in her abdominal lower quadrants bilaterally. Pain is described as a crampy pain she thought she had gas or had to go to the bathroom, rated at 10 out of 10. She took a pain medication which she said was oxycodone and was able to fall asleep but she was only asleep for a few hours. And still had pain. This morning she still had pain which is not rhythm improved and thus brought her in the ER. In the ED she did receive some pain medications by the time I saw her she said her pain was down to a 6 and appears comfortable in bed. She was feeling fine up to this point no recent illnesses no sick contacts no trauma or sudden twisting of her trunk. She did note that she did have some sharp flank pain on that right side for the past 3 weeks and did see her primary care provider for it. In the ED workup showed vital signs are essentially stable with a heart rate 92- 98 other parameters within normal limits. She did have a leukocytosis, again was afebrile. Lactic acid was within normal limits, urinalysis unremarkable for an infectious signs, but did have RBCs present. Noncontrast CT abdomen pelvis showed no acute pathology, no evidence of free intraperitoneal fluid intra-abdominal abscess or pneumoperitoneum or pneumatosis. Did show already known multiple large renal cysts. Dr. Alarcon saw the patient in the ED. Patient denies any epigastric pain. Lipase mildly elevated at 247. Concern for possible rupture of 1 of her renal cysts, antibiotic started given leukocytosis and concern for possibly infected cyst. She had a normal bowel movement last night. She did take a suppository last night after the pain started because that she previously stated felt like she needed to have a bowel movement but was not able to go. 09/30 No overnight events. Abdominal pain is less severe today. He has some nausea and retching. Tolerating clear liquid diet well. Did not have any reaction to Cipro, will switch back Rocephin to Cipro per nephro note. Getting PD right now. Gallbladder ultrasound unremarkable. 10/01 States his abdominal pain again especially lower quadrants, has not had a bowel movement since Monday. States she has burning when she urinates 10/02 Pain improving. She did have some nausea after medication this morning. No other new complaints other than wants an advance in her diet 10/03 Nausea vomitus morning. Abdominal pain, requiring decreased prn pain medications. no BM yet. Continues to have dysuria. 10/04 Slept well last night. Complains of dysuria. States no significant abdominal pain. Did not require any pain medication overnight shift. Review of Systems: denies headache/fever/chills/chest pain/cough/dyspnea/diarrhea. Otherwise see above. - Constitutional Vitals: Vital Signs Temp Pulse Resp BP Pulse Ox 98.0 F 66 20 116/58 90 10/04/18 04:35 10/04/18 04:35 10/04/18 04:35 10/04/18 04:35 10/04/18 04:35 Period Temp Pulse Resp BP Sys/Hartman Pulse Ox Last 24 Hr 97.8 F-98.7 F 62-75 14-20 103-129/48-58 90-92 Intake and Output 10/03/18 10/04/18 10/04/18 21:59 05:59 13:59 Intake Total 150 520 Output Total 325 250 Balance -175 270 Weight 72.802 kg Intake & Output: Intake & Output 10/03/18 10/04/18 10/04/18 21:59 05:59 13:59 Intake Total 150 520 Output Total 325 250 Balance -175 270 Weight 72.802 kg Intake: Oral 150 520 Output: Void Amount 325 250 Other: Meal Lunch Percent of Meal Consumed 75% Feeding Ability Independent Urine Appearance Clear Clear Urine Color Straw Straw Urine Odor Normal Normal # Voids 2 Exam: General: Alert, Awake, No acute Distress Eyes/N/T: EOMI, Head/Neck: neck supple, CV: regular, 2/6 SM Pulm: diminished, no wheezing Abd: soft, minimal TTP right quadrants, +BS x4, Ext: no clubbing/cyanosis, trace b/l LE edema Neuro: Alert, no focal deficits, moves all extremities, Skin: warm/dry Medical - PN: Obj Da - Labs CBC & Chem 7: 10/03/18 10:16 10/03/18 10:16 Labs: Abnormal Lab Results 10/04/18 10/03/18 10/03/18 04:30 11:24 10:16 WBC RBC Hgb Hct RDW Gran # Sanders # (Auto) Lymphocytes % Monocytes % (Manual) Metamyelocytes % RBC Morphology Polychromasia Anisocytosis ESR 84 H Sodium 132 L Chloride 90 L BUN 64 H Creatinine 7.8 H* Glucose 150 H Calcium Phosphorus 7.4 H* Magnesium Alkaline Phosphatase C-Reactive Protein 15.7 H 22.3 H Total Protein Albumin 2.9 L Albumin/Globulin Ratio 0.9 L Triglycerides Amylase 126 H Lipase 103 H Urine Protein Urine Occult Blood Urine RBC Ur Squamous Epith Cells Amorphous Crystals Urine Bacteria 10/03/18 10/02/18 10/02/18 10:16 04:08 04:08 WBC 15.0 H 14.1 H RBC 3.42 L 3.09 L Hgb 9.3 L 8.4 L Hct 28.9 L 26.3 L RDW 16.0 H 15.7 H Gran # Sanders # (Auto) Lymphocytes % 14 L Monocytes % (Manual) 14 H Metamyelocytes % 1 H RBC Morphology Abnorm A Abnorm A Polychromasia Few A Anisocytosis 1+ A Few A ESR Sodium Chloride BUN Creatinine Glucose Calcium Phosphorus Magnesium Alkaline Phosphatase C-Reactive Protein Total Protein Albumin Albumin/Globulin Ratio Triglycerides Amylase 140 H Lipase 85 H Urine Protein Urine Occult Blood Urine RBC Ur Squamous Epith Cells Amorphous Crystals Urine Bacteria 10/02/18 10/01/18 10/01/18 04:08 15:00 13:24 WBC RBC Hgb Hct RDW Gran # Sanders # (Auto) Lymphocytes % Monocytes % (Manual) Metamyelocytes % RBC Morphology Polychromasia Anisocytosis ESR Sodium Chloride 92 L BUN 67 H Creatinine 7.5 H* Glucose 137 H Calcium 8.5 L Phosphorus 6.8 H* Magnesium 1.5 L Alkaline Phosphatase C-Reactive Protein Total Protein 5.5 L Albumin 2.9 L Albumin/Globulin Ratio Triglycerides Amylase 196 H Lipase Urine Protein 100 A Urine Occult Blood 0.2 A Urine RBC 2 H Ur Squamous Epith Cells 8 H Amorphous Crystals Mod A Urine Bacteria Few A 10/01/18 10/01/1810/01/19 07:25 07:25 07:12 WBC 15.3 H RBC 3.39 L Hgb 9.1 L Hct 28.7 L RDW 15.3 H Gran # 11.1 H Sanders # (Auto) 1.5 H Lymphocytes % Monocytes % (Manual) Metamyelocytes % 1 H RBC Morphology Abnorm A Polychromasia Anisocytosis Few A ESR Sodium Chloride 95 L BUN 73 H Creatinine 7.0 H* Glucose 128 H Calcium 8.5 L Phosphorus 6.3 H* Magnesium 1.5 L Alkaline Phosphatase 118 H C-Reactive Protein Total Protein 5.8 L Albumin Albumin/Globulin Ratio Triglycerides 202 H Amylase Lipase 115 H Urine Protein Urine Occult Blood Urine RBC Ur Squamous Epith Cells Amorphous Crystals Urine Bacteria Meds: Medications Acetaminophen (Tylenol) 650 mg PO Q6HP PRN PRN Reason: PAIN/FEVER > 101 Amlodipine Besylate (Norvasc) 10 mg PO DAILY [facility] Last Admin: 10/03/18 09:06 Dose: Not Given Documented by: Atorvastatin Calcium (Lipitor) [address] [facility] Last Admin: 10/03/18 21:22 Dose: 20 mg Documented by: Bisacodyl (Dulcolax) 10 mg DC Q2-3DAYS PRN PRN Reason: Constipation Carvedilol (Coreg) 25 mg PO BIDCC [facility] Last Admin: 10/03/18 18:04 Dose: Not Given Documented by: Cefepime HCl (Maxipime) 1 gm IV Q48H [facility] Last Admin: 10/03/18 16:15 Dose: 1 gm Documented by: Diagnostic Test (Pha) (Accu-Chek) 1 each FS [facility] Last Admin: 10/04/18 07:10 Dose: 1 each Documented by: Diphenhydramine HCl (Benadryl) 25 mg IV Q4-6HP PRN PRN Reason: Nausea Docusate Sodium (Colace) 100 mg PO BID [facility] Last Admin: 10/03/18 21:22 Dose: 100 mg Documented by: Famotidine (Pepcid) 20 mg PO QHS [facility] Last Admin: 10/03/18 21:22 Dose: 20 mg Documented by: Furosemide (Lasix) 120 mg PO BID [facility] Last Admin: 10/03/18 21:21 Dose: 120 mg Documented by: Insulin Human Lispro (Humalog) 0 unit SQ [facility]; Protocol Last Admin: 10/04/18 07:12 Dose: Not Given Documented by: Lidocaine (Lidoderm) 1 patch TOPICAL PRN PRN PRN Reason: Pain Lisinopril (Zestril) 5 mg PO BID [facility] Last Admin: 10/04/18 01:29 Dose: Not Given Documented by: Loperamide HCl (Imodium) 2 mg PO PRN PRN PRN Reason: Diarrhea Lorazepam (Ativan) 0.5 mg IV Q8HP PRN PRN Reason: Anxiety Ondansetron HCl (Zofran) 4 mg IV Q6HP PRN PRN Reason: Nausea And Vomiting Last Admin: 10/03/18 05:55 Dose: 4 mg Documented by: Ondansetron HCl (Zofran Odt) 4 mg SL DAILY [facility] Last Admin: 10/03/18 08:28 Dose: 4 mg Documented by: Fluticasone/Salmeterol Hfa 230/21 Mcg Inhaler 1 dose INH BID [facility] Last Admin: 10/03/18 21:24 Dose: Not Given Documented by: Prochlorperazine (Compazine) 5 mg IV Q4HP PRN PRN Reason: Nausea And Vomiting Last Admin: 10/03/18 10:21 Dose: 5 mg Documented by: Sevelamer Carbonate (Renvela) 1,600 mg PO TIDCC [facility] Last Admin: 10/03/18 18:04 Dose: 1,600 mg Documented by: Sodium Chloride (Saline Flush) 10 ml IV Q8 [facility] Last Admin: 10/03/18 21:30 Dose: 10 ml Documented by: Trazodone HCl (Desyrel) 50 mg PO QHS [facility] Last Admin: 10/03/18 21:30 Dose: 50 mg Documented by: Medical - PN: A/P - Time Spent With Patient Total time spent is greater than 50% in coordination of care (as documented) at patient's floor/unit and/or counseling patient: - Narrative A/P Narrative: A: *Acute right side abd pain (sharp initially now mild and achy): ?rupture/hemorrhage of a renal cyst vs passing of kidney stone vs less likely pancreatitis. sounds like she is also been having some referred pain likely from polycystic kidneys -lipase mildy elevated but pain not typical of pancreatitis, noncontrast CT no obvious cause -GB u/s unremarkable on admit except thickening, repeat with sludge but no thickening. -peritoneal fluid not infected -f/u CT a/p and pelvic u/s unremarkable -had unremarkable EGD/colonoscopy last april -IMPROVED but having N/V *Leukocytosis: reactive vs infectious. ?infected cyst vs other -UA unremarkable, no respiratory symptoms -f/u PCT elevated -component of which initially was likely recent medrol dose pack for OA, but has not been on steroids during admit *ESRD 2/2 Polycystic Kidney dz w/PD: follows with Dr. Russ *Anemia, chronic: *DM: *COPD (not on home O2, but uses husbands from time to time especially when she has a cold): -CXR mild left base parenchymal density likely atelectasis -requiring 1L NC *Anxiety/depression *HTN/HLD *GERD: *Hypomag: improved P: -decreased diet back to full liquid -Nephrology following, PD and aranesp prn -cefepime per ID, changed from rocephin - -prn electrolyte replacement -Dr. Harden consulted, want to go EGD -IS -home O2 eval prior to d/c -f/u with for dysuria -ppx: heparin/pepcid Medical - PN: Qual - Stroke Symptom Onset Unknown: No - VTE Deep Vein Thrombosis/Pulmonary Embolism Present on Admission: No
[2018-10-04] MEDS: 0.9 % SODIUM CHLORIDE 10 ML SYRINGE IV SCH ×3 (07:51→21:45)
[2018-10-04] MEDS: SEVELAMER 800 MG TABLET PO SCH ×3 (08:45→17:14)
[2018-10-04] MEDS: CARVEDILOL 12.5 MG TABLET PO SCH ×2 (08:45→17:14)
[2018-10-04 08:50] LABS: Basophils # (Auto) 0 K/mcL (0.0-0.3); Basophils % (Auto) 0.3 % (0.0-2.0); Eosinophils # (Auto) 0.3 K/mcL (0.0-0.7); Eosinophils % (Auto) 2.8 % (0.0-7.0); Granulocytes % (Auto) 70.2 % (38.0-78.0); Lymphocytes # (Auto) 1.8 K/mcL (1.5-4.8); Lymphocytes % (Auto) 14.9 % (15.5-49.0); Mean Cell Volume 85.1 fL (80.0-100.0); Mean Corpuscular HGB Conc 32.3 g/dL (31.0-36.0); Monocytes # (Auto) 1.4 K/mcL (0.1-0.9); Monocytes % (Auto) 11.8 % (1.0-12.0); Platelet Count 290 K/mcL (140-440); RBC 3.14 M/mcL (4.00-5.20)
[2018-10-04 09:10] LABS: ALT/SGPT 5 U/l (0-40); Albumin 2.7 gm/dL (3.2-5.2); Albumin/Globulin Ratio 0.9 (1.0-2.3); Alkaline Phosphatase 110 U/L (39-117); Bilirubin,Direct < 0.2 mg/dL (0.0-0.3); Blood Urea Nitrogen 58 mg/dl (8-23); Gamma Glutamyl Transpeptidase 18 U/L (5-36); Uric Acid 7.7 mg/dL (2.5-8.0)
[2018-10-04] MEDS: amLODIPine 10 MG TABLET PO SCH (09:43)
[2018-10-04] MEDS: FUROSEMIDE 40 MG TABLET PO SCH ×2 (09:43→21:45)
[2018-10-04] MEDS: DOCUSATE SODIUM 100 MG CAPSULE PO SCH ×2 (09:43→21:45)
[2018-10-04] MEDS: SALMETEROL INH SCH ×2 (09:44→23:42)
[2018-10-04] MEDS: ONDANSETRON 4 MG ODT TABLET SL SCH (09:44)
[2018-10-04] MEDS: FLUTICASONE INH SCH ×2 (09:44→23:42)
[2018-10-04] MEDS ORDERED: MIDAZOLAM 2 MG/2 ML VIAL ONE (17:21)
[2018-10-04] MEDS ORDERED: PROPOFOL 0 ML IV ONE (17:21)
[2018-10-04] MEDS ORDERED: PROPOFOL 20 ML IV ONE (17:22)
[2018-10-04] MEDS ORDERED: PROPOFOL 200 MG/20 ML VIAL IV ONE (18:03)
[2018-10-04] MEDS ORDERED: PANTOPRAZOLE 40 MG VIAL IV ONE ×2 (18:17→19:30)
[2018-10-04] MEDS: traZODone HCL 50 MG TABLET PO SCH (21:45)
[2018-10-04] MEDS: ATORVASTATIN 20 MG TABLET PO SCH (23:42)
[2018-10-05 05:51] LABS: Basophils # (Auto) 0 K/mcL (0.0-0.3); Basophils % (Auto) 0.3 % (0.0-2.0); Eosinophils # (Auto) 0.3 K/mcL (0.0-0.7); Eosinophils % (Auto) 3.6 % (0.0-7.0); Granulocytes % (Auto) 65.2 % (38.0-78.0); Lymphocytes # (Auto) 1.8 K/mcL (1.5-4.8); Lymphocytes % (Auto) 18.8 % (15.5-49.0); Mean Cell Volume 84.2 fL (80.0-100.0); Mean Corpuscular HGB Conc 32.7 g/dL (31.0-36.0); Monocytes # (Auto) 1.2 K/mcL (0.1-0.9); Monocytes % (Auto) 12.1 % (1.0-12.0); Platelet Count 282 K/mcL (140-440); RBC 3.08 M/mcL (4.00-5.20)
[2018-10-05 06:18] LABS: ALT/SGPT < 5 U/l (0-40); Albumin 2.7 gm/dL (3.2-5.2); Albumin/Globulin Ratio 0.9 (1.0-2.3); Alkaline Phosphatase 105 U/L (39-117); Bilirubin,Direct < 0.2 mg/dL (0.0-0.3); Blood Urea Nitrogen 51 mg/dl (8-23); Gamma Glutamyl Transpeptidase 17 U/L (5-36); Lipase 115 U/L (7-60); Uric Acid 8.2 mg/dL (2.5-8.0)
--- NOTE | 2018-10-05 07:00 | Nephrology Progress Note ---
Subjective Patient information: Note initiated : 10/05/18 at 6:59 am Patient: Ema Vang 78 y/o F admitted on 09/29/18 for abdominal pain. Chief Complaint: Abdominal pain Principal diagnosis: Abdominal pain Pertinent ROS: Abdominal pain and dysuria, improved Nausea and vomiting on and off No flank pain No diarrhea No dysuria No edema Objective - Vital Signs Vital signs: Vital Signs Temp Pulse Pulse Resp BP BP BP 10/05/18 04:00 98.7 F 63 16 95/52 10/04/18 23:57 98.1 F 64 16 108/56 10/04/18 21:48 66 114/59 10/04/18 20:33 70 117/59 10/04/18 20:08 96.9 F L 116/43 10/04/18 19:48 69 124/60 10/04/18 19:18 66 115/53 10/04/18 19:03 66 124/55 10/04/18 18:48 66 124/56 10/04/18 18:33 65 116/57 10/04/18 18:18 66 112/57 10/04/18 18:08 65 16 116/43 10/04/18 17:59 73 14 148/61 10/04/18 17:57 68 14 108/48 10/04/18 17:35 96.9 F L 74 20 120/57 10/04/18 16:00 96.6 F L 73 20 148/61 10/04/18 12:00 96.9 F L 74 20 120/57 10/04/18 08:00 98.4 F 70 20 136/61 Pulse Ox 10/05/18 04:00 92 10/04/18 23:57 93 10/04/18 21:48 10/04/18 20:33 93 10/04/18 20:08 10/04/18 19:48 95 10/04/18 19:18 95 10/04/18 19:03 95 10/04/18 18:48 95 10/04/18 18:33 95 10/04/18 18:18 95 10/04/18 18:08 99 10/04/18 17:59 98 10/04/18 17:57 98 10/04/18 17:35 90 10/04/18 16:00 92 10/04/18 12:00 90 10/04/18 08:00 94 Intake and Output 10/04/18 10/05/18 10/05/18 21:59 05:59 13:59 Intake Total 500 Output Total 300 300 Balance -300 200 Intake: Oral 500 Output: Void Amount 300 300 Other: Weight 160 lb Intake & Output: Intake & Output 10/04/18 10/05/18 10/05/18 21:59 05:59 13:59 Intake Total 500 Output Total 300 300 Balance -300 200 Weight 160 lb Intake: Oral 500 Output: Void Amount 300 300 - General Appearance General appearance: appears started age, fatigue EENT: mucous membranes moist Neck: supple Respiratory: clear Cardiology: no edema Gastrointestinal: no tenderness Integumentary: warm and dry Neurologic: no focal deficit, alert and oriented x3 Musculoskeletal: no deformities Psychiatric: mood/affect appropriate, cooperative - Lab 10/05/18 04:05 10/05/18 04:05 Most recent lab results Calcium 8.9 mg/dl (8.6-10.4) 10/05/18 04:05 Phosphorus 6.4 mg/dL (2.7-4.5) H* 10/05/18 04:05 Magnesium 1.8 mg/dL (1.6-2.5) 10/05/18 04:05 Assessment and Plan (1) ESRD on peritoneal dialysis Ema Vang is a 78-year-old female with end-stage renal disease on chronic peritoneal dialysis (followed by Dr. 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 She reported sudden onset abdominal pain (at 8:30PM last night), generalized, but mostly lower abdominal, constant not crampy, never resolved since started, associated with nausea and vomiting (not coffee ground or bloody), no diarrhea or constipation. Last BM yesterday light brown. PD fluid clear. No problems with PD dwell or drain. urine looked somewhat bloody but no dysuria. She has been on Prednisone taper off for arthritis. No other new medications. Renal cyst rupture/hemorrhage or nephrolithiasis considered due to sudden onset abdominal pain. Ciprofloxacin was given for suspected renal cyst infection due to leukocytosis, however this could also be due to Prednisone she was recently started. Acute pancreatitis suspected due to lipase elevation. Recent work up: EGD on 05/04/18: Schatzki's ring. Gastric polyp. Query celiac. Colonoscopy on 05/04/18: Colonic polyps. Query microscopic colitis. CT Abdomen and Pelvis on 07/30/18: Pneumoperitoneum. This is probably iatrogenic secondary to peritoneal dialysis catheter. Multiple large renal cysts consistent with polycystic kidney disease. No hydronephrosis . Mild diverticulosis. No evidence for diverticulitis. Extensive calcified atherosclerotic disease. Work up: Labs on 09/29/18: PD Fluid cell count: Nucleated cells 16, 10% neutrophils Gram stain no polys, no organism Culture pending CT KUB on 09/29/18: History of polycystic kidney disease and renal failure. Extensive atherosclerotic disease. No abdominal aortic aneurysm. No acute or focal abnormality. Gall bladder US on 10/09/18: Negative examination for cholelithiasis. Trace pericholecystic fluid. No other abnormality. CT Abdomen and Pelvis with oral contrast on 10/01/18: Polycystic kidney disease. Patient is on peritoneal dialysis. There is intraperitoneal fluid which may be dialysate. No acute intra-abdominal abnormality. Transvaginal US on 10/01/18: Mild free pelvic fluid. Previous hysterectomy. Ovaries are not visualized Gall bladder US on 10/03/18: Mild biliary sludge in the dependent portion of the gallbladder. This is a new finding. No discrete calculi. No gallbladder wall thickening. There is minimal pericholecystic fluid which may be from peritoneal dialysis. Possible 10 mm pancreatic head mass. Further evaluation recommended. Progress: Edema, resolved Plan: CCPD with 1.5/2.5%, total volume 7,200 ml, 4 exchanges of 1,800 ml, total time 9 hours. Status: Chronic Priority: Medium (2) Anemia due to end stage renal disease Aranesp 40 mcg IV x 1 on 09/30/18 for Hb <10 Status: Chronic Priority: Medium (3) Secondary hyperparathyroidism of renal origin Sensipar discontinued due to hypocalcemia Status: Chronic Priority: Medium
--- NOTE | 2018-10-05 07:02 | Operative Note ---
DATE OF OPERATION: 10/04/2018 PREPROCEDURE DIAGNOSES: 1. Duodenal or gastric ulcer. 2. History of nausea. 3. Vomiting, abdominal pain. POSTPROCEDURE DIAGNOSES: Duodenitis was significant swelling and some bleeding. 2. Gastritis. 3. Gastric polyps. 4. EGitis. 5. 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 6. Hiatal hernia. 7. Possible erosion or ulcer not seen in duodenal bulb. PROCEDURE: Esophagogastroduodenoscopy with biopsy and dilation over a guidewire. INSTRUMENT USED: Olympus EVELYN [id number] endoscope. SPECIMENS OBTAINED: Biopsies from antrum for histopathology and rapid urease testing, biopsies and distal esophagus, ? reflux. CLOtest RESULTS: Negative INDICATIONS: The patient is a 78-year-old lady referred to me by Dr. Danielle and the patient's primary care physician, Dr. Ceja. I did give the report of the findings to Dr. Wolf, one of the hospitalist on duty at this time. The patient has had some abdominal pain, nausea and vomiting. There is concern regarding ulcer. Endoscopy is indicated. INFORMED CONSENT: Time of informed consent 17:32. The procedure was reviewed with the patient. The patient had no further questions and accepts the risks and benefits thereof. One of the risks that were discussed included . Additional risks that were also discussed included bleeding, reaction to medication, possible perforation and possible need for surgery. IV MEDICATIONS USED: Versed 1, propofol 100. FINDINGS: ESOPHAGUS: Proximal and mid esophagus normal. Distal esophagus strictures were noted. There were about 2 or 3 dilations accomplished with a 17 mm [place] dilator. No significant inflammation was noted in the distal esophagus. EG junction was around 38 cm. There was minimal erythema and edema noted. There was a hiatal hernia down to about 42 cm. Dilation was accomplished with a 17 mm [place] dilator. STOMACH: Cardia, fundus, body and antrum: Linear and scattered areas of erythema and edema especially in the body, maybe some in the fundus. There were a few polyps. Biopsies were taken. Biopsies were taken from the antrum for histopathology and rapid urease testing -- CLOtest. PYLORUS: Normal. DUODENUM: In the bulb, there was significant erythema and edema. There was some blood noted. Much of this was just a few flakes of blood on the mucosa which washed away. No active bleeding was seen. I really expected to find an ulcer or small erosions. However, I could not find one. The area was washed and searched multiple times. The descending limb of the duodenum appeared normal. RECOMMENDATIONS: PPI medication, maybe omeprazole, maybe Protonix standard dose once a day. Prescription should be allowed if necessary for 30 with 5 refills. Diet can be allowed. I would recommend we start with liquid. We should have caffeine free diet. This food can be advanced as tolerated. Given the severity of the pathology in the duodenum I recommend a repeat EGD in about 3 months to evaluate status of healing. It might be best to do this at a hospital. Hopefully, the patient has good improvement. If she fails to improve, we may consider a nuclear medicine gastric emptying study if nausea and vomiting persist. Sedation time: 17:38 to 18:15. Please refer to the preprocedure nurse's notes, procedure flowsheet, procedure record, and post-procedure assessment for details of the sedation including the pre-, intra-and post-service work. CRD:[email or web address] Job ID: [id number] Doc ID: [id number] Florentin PATEL
[2018-10-05] MEDS: 0.9 % SODIUM CHLORIDE 10 ML SYRINGE IV SCH ×3 (07:04→23:06)
[2018-10-05] MEDS: PANTOPRAZOLE 40 MG PACKET PO SCH (07:05)
[2018-10-05] MEDS: INSULIN LISPRO 1 UNIT/0.01 ML UNIT SQ SCH ×4 (07:13→21:56)
--- NOTE | 2018-10-05 08:09 | XRay Report ---
CLINICAL INFORMATION: Constipation TECHNIQUE: Supine and upright abdomen COMPARISON: CT scan dated 10/01/2018 FINDINGS: There is contrast material throughout the colon from previous CT scan. It is not distended. Equal material is unremarkable. No radiographic evidence for significant constipation or impaction. No mechanical small bowel obstruction. Bowel gas pattern is nonspecific and nonobstructive. There is a peritoneal dialysis catheter in place. Patient has undergone previous anterior and posterior lumbar fusion. There is no pneumoperitoneum. No biliary or portal venous gas. No pneumatosis. IMPRESSION: 1. Unremarkable bowel gas pattern 2. No acute abnormality Interpreted and Authenticated by: Kolby Dover 10/05/18
[2018-10-05] MEDS: amLODIPine 10 MG TABLET PO SCH (09:58)
[2018-10-05] MEDS: FUROSEMIDE 40 MG TABLET PO SCH ×2 (09:58→22:17)
[2018-10-05] MEDS: ONDANSETRON 4 MG ODT TABLET SL SCH (09:58)
[2018-10-05] MEDS: LISINOPRIL 5 MG TABLET PO SCH ×2 (09:59→22:02)
[2018-10-05] MEDS: SEVELAMER 800 MG TABLET PO SCH ×3 (09:59→17:01)
[2018-10-05] MEDS: CARVEDILOL 12.5 MG TABLET PO SCH ×2 (09:59→17:01)
[2018-10-05] MEDS: FLUTICASONE INH SCH ×2 (09:59→22:02)
[2018-10-05] MEDS: DOCUSATE SODIUM 100 MG CAPSULE PO SCH ×2 (09:59→21:54)
[2018-10-05] MEDS: SALMETEROL INH SCH ×2 (09:59→22:02)
[2018-10-05] MEDS: CEFEPIME 2 GM VIAL IV SCH (10:08)
[2018-10-05 10:36] LABS: Appearance,Urine HAZY; Bacteria,Urine FEW /hpf (0); Bilirubin,Urine NEG (NEG); Color,Urine YELLOW; Glucose,Urine (UA) NEGATIVE (NEG); Leukocyte Esterase,Urine 500 /uL (NEG); Protein,Urine 30 mg/dL (NEG); Specific Gravity,Urine 1.008 (1.000-1.035); Urine Blood 0.2 mg/dL (<0.03); Urine RBC 76 /hpf (0-1); Urine Squamous Epithelial Cell 5 /hpf (0-4); Urine Transitional Epi Cells < 1 /hpf (0-2); Urine WBC > 182 /hpf (0-4); Urobilinogen,Urine NEG (NEG)
[2018-10-05] MEDS ORDERED: PHENAZOPYRIDINE 200 MG TABLET PO PRN (10:44)
--- NOTE | 2018-10-05 10:58 | Internal Med Progress Note ---
Medical - PN: Subj Patient information: Note initiated : 10/05/18 at 10:56 am Service Date, if different from initiated Date: [] Patient: Ema Vang a 78 y/o F admitted on 09/29/18 for abdominal pain. Chief Complaint: [] Interval history: Ms. Vang is a 78 year old F with a history of end-stage renal disease on peritoneal dialysis, diabetes, COPD, depression anxiety, chronic diarrhea who presents with abdominal pain acutely. Patient reports that last night while starting to watching TV while she was sitting on the couch developed sudden severe pain in her abdominal lower quadrants bilaterally. Pain is described as a crampy pain she thought she had gas or had to go to the bathroom, rated at 10 out of 10. She took a pain medication which she said was oxycodone and was able to fall asleep but she was only asleep for a few hours. And still had pain. This morning she still had pain which is not rhythm improved and thus brought her in the ER. In the ED she did receive some pain medications by the time I saw her she said her pain was down to a 6 and appears comfortable in bed. She was feeling fine up to this point no recent illnesses no sick contacts no trauma or sudden twisting of her trunk. She did note that she did have some sharp flank pain on that right side for the past 3 weeks and did see her primary care provider for it. In the ED workup showed vital signs are essentially stable with a heart rate 92- 98 other parameters within normal limits. She did have a leukocytosis, again was afebrile. Lactic acid was within normal limits, urinalysis unremarkable for an infectious signs, but did have RBCs present. Noncontrast CT abdomen pelvis showed no acute pathology, no evidence of free intraperitoneal fluid intra-abdominal abscess or pneumoperitoneum or pneumatosis. Did show already known multiple large renal cysts. Dr. Alarcon saw the patient in the ED. Patient denies any epigastric pain. Lipase mildly elevated at 247. Concern for possible rupture of 1 of her renal cysts, antibiotic started given leukocytosis and concern for possibly infected cyst. She had a normal bowel movement last night. She did take a suppository last night after the pain started because that she previously stated felt like she needed to have a bowel movement but was not able to go. 09/30 No overnight events. Abdominal pain is less severe today. He has some nausea and retching. Tolerating clear liquid diet well. Did not have any reaction to Cipro, will switch back Rocephin to Cipro per nephro note. Getting PD right now. Gallbladder ultrasound unremarkable. 10/01 States his abdominal pain again especially lower quadrants, has not had a bowel movement since Monday. States she has burning when she urinates 10/02 Pain improving. She did have some nausea after medication this morning. No other new complaints other than wants an advance in her diet 10/03 Nausea vomitus morning. Abdominal pain, requiring decreased prn pain medications. no BM yet. Continues to have dysuria. 10/04 Slept well last night. Complains of dysuria. States no significant abdominal pain. Did not require any pain medication overnight shift. 10/05 Pt seen examined, no acute ovenright issues EGD findings reviewed, started on PPI as per GI reccs Pt still constipated, X ray does not show significant stool burden pt reports some nausea, but able to tolerate liquid diet today, will advance to full liquid patient has burning micturation, despite being on antibiotics, repeat UA suggestive of UTI, will repeat cultures, pt on cefepime, MDRO, not a clean sample? Will also see if local fungal infection is playing a role. pt may benefit from topical estrogen/antifungal cream. Pertinent ROS: Denies headache, dizziness Denies chest pain, palpitations Denies cough or shortness of breath Denies abdominal pain, some nausea present, no vomiting. burning urine reported - Constitutional Vitals: Vital Signs Temp Pulse Resp BP Pulse Ox 97.8 F 71 16 110/62 92 10/05/18 08:00 10/05/18 08:00 10/05/18 08:00 10/05/18 08:00 10/05/18 08:00 Period Temp Pulse Resp BP Sys/Hartman Pulse Ox Last 24 Hr 96.6 F-98.7 F 63-74 14-20 95-148/43-62 90-99 Intake and Output 10/04/18 10/05/18 10/05/18 21:59 05:59 13:59 Intake Total 500 Output Total 300 300 400 Balance -300 200 -400 Weight 160 lb Intake & Output: Intake & Output 10/04/18 10/05/18 10/05/18 21:59 05:59 13:59 Intake Total 500 Output Total 300 300 400 Balance -300 200 -400 Weight 160 lb Intake: Oral 500 Output: Void Amount 300 300 400 Other: Meal Breakfast Percent of Meal Consumed 25% Feeding Ability Independent Urine Appearance Cloudy Urine Color Bright Yellow Urine Odor Normal # Voids 1 Exam: Constitutional; Afebrile, cooperative, alert, not in distress. Respiratory system: Air Entry equal on both sides, No crackles or wheezing, no rhonchi. CVS- Rate rhythm regular, S1,S2 heard, no gallop, no rub. Abdomen- Soft nontender abdomen, no organomegaly, no tenderness, no guarding or rigidity, [employer]- AOOx3, moving all extremities, no gross focal deficit noted. Medical - PN: Obj Da - Labs CBC & Chem 7: 10/05/18 04:05 10/05/18 04:05 Labs: Abnormal Lab Results 10/05/18 10/05/18 10/05/18 09:15 04:05 04:05 WBC RBC 3.08 L Hgb 8.5 L Hct 25.9 L RDW 15.0 H Lymph % (Auto) Union % (Auto) 12.1 H Gran # Union # (Auto) 1.2 H Lymphocytes % Monocytes % (Manual) RBC Morphology Anisocytosis ESR Sodium Potassium 3.2 L Chloride 93 L BUN 51 H Creatinine 7.8 H* Glucose 135 H Uric Acid 8.2 H Phosphorus 6.4 H* C-Reactive Protein Total Protein 5.7 L Albumin 2.7 L Albumin/Globulin Ratio 0.9 L Amylase Lipase 115 H Urine Protein 30 A Urine Occult Blood 0.2 A Ur Leukocyte Esterase 500 A Urine RBC 76 H Urine WBC > 182 H Ur Squamous Epith Cells 5 H Urine Bacteria Few A 10/04/18 10/04/18 10/04/18 08:00 08:00 04:30 WBC 11.9 H RBC 3.14 L Hgb 8.6 L Hct 26.7 L RDW 15.0 H Lymph % (Auto) 14.9 L Union % (Auto) Gran # 8.3 H Union # (Auto) 1.4 H Lymphocytes % Monocytes % (Manual) RBC Morphology Anisocytosis ESR Sodium Potassium Chloride 93 L BUN 58 H Creatinine 7.5 H* Glucose Uric Acid Phosphorus 7.0 H* C-Reactive Protein 15.7 H Total Protein 5.8 L Albumin 2.7 L Albumin/Globulin Ratio 0.9 L Amylase Lipase Urine Protein Urine Occult Blood Ur Leukocyte Esterase Urine RBC Urine WBC Ur Squamous Epith Cells Urine Bacteria 10/03/18 10/03/18 10/03/18 11:24 10:16 10:16 WBC 15.0 H RBC 3.42 L Hgb 9.3 L Hct 28.9 L RDW 16.0 H Lymph % (Auto) Union % (Auto) Gran # Union # (Auto) Lymphocytes % 14 L Monocytes % (Manual) 14 H RBC Morphology Abnorm A Anisocytosis 1+ A ESR 84 H Sodium 132 L Potassium Chloride 90 L BUN 64 H Creatinine 7.8 H* Glucose 150 H Uric Acid Phosphorus 7.4 H* C-Reactive Protein 22.3 H Total Protein Albumin 2.9 L Albumin/Globulin Ratio 0.9 L Amylase 126 H Lipase 103 H Urine Protein Urine Occult Blood Ur Leukocyte Esterase Urine RBC Urine WBC Ur Squamous Epith Cells Urine Bacteria Meds: Medications Acetaminophen (Tylenol) 650 mg PO Q6HP PRN PRN Reason: PAIN/FEVER > 101 Amlodipine Besylate (Norvasc) 10 mg PO DAILY [facility] Last Admin: 10/05/18 09:58 Dose: 10 mg Documented by: Atorvastatin Calcium (Lipitor) 20 mg PO [facility] Last Admin: 10/04/18 23:42 Dose: 20 mg Documented by: Bisacodyl (Dulcolax) 10 mg MI Q2-3DAYS PRN PRN Reason: Constipation [facility] Last Admin: 10/05/18 09:59 Dose: 25 mg Documented by: Cefepime HCl (Maxipime) 1 gm IV Q48H [facility] Last Admin: 10/05/18 10:08 Dose: 1 gm Documented by: Diagnostic Test (Pha) (Accu-Chek) 1 each FS [facility] Last Admin: 10/05/18 07:12 Dose: 1 each Documented by: Diphenhydramine HCl (Benadryl) 25 mg IV Q4-6HP PRN PRN Reason: Nausea Docusate Sodium (Colace) 100 mg PO BID [facility] Last Admin: 10/05/18 09:59 Dose: 100 mg Documented by: Furosemide (Lasix) 120 mg PO BID [facility] Last Admin: 10/05/18 09:58 Dose: 120 mg Documented by: Insulin Human Lispro (Humalog) 0 unit SQ [facility]; Protocol Last Admin: 10/05/18 07:13 Dose: Not Given Documented by: Lidocaine (Lidoderm) 1 patch TOPICAL PRN PRN PRN Reason: Pain Lisinopril (Zestril) 5 mg PO BID [facility] Last Admin: 10/05/18 09:59 Dose: 5 mg Documented by: Loperamide HCl (Imodium) 2 mg PO PRN PRN PRN Reason: Diarrhea Lorazepam (Ativan) 0.5 mg IV Q8HP PRN PRN Reason: Anxiety Ondansetron HCl (Zofran) 4 mg IV Q6HP PRN PRN Reason: Nausea And Vomiting Last Admin: 10/03/18 05:55 Dose: 4 mg Documented by: Ondansetron HCl (Zofran Odt) 4 mg SL DAILY [facility] Last Admin: 10/05/18 09:58 Dose: 4 mg Documented by: Pantoprazole Sodium (Protonix) 40 mg PO QAMAC [facility] Last Admin: 10/05/18 07:05 Dose: 40 mg Documented by: Fluticasone/Salmeterol Hfa 230/21 Mcg Inhaler 1 dose INH BID [facility] Last Admin: 10/05/18 09:59 Dose: Not Given Documented by: Prochlorperazine (Compazine) 5 mg IV Q4HP PRN PRN Reason: Nausea And Vomiting Last Admin: 10/04/18 07:00 Dose: 5 mg Documented by: Sevelamer Carbonate (Renvela) 1,600 mg PO TIDCC [facility] Last Admin: 10/05/18 09:59 Dose: 1,600 mg Documented by: Sodium Chloride (Saline Flush) 10 ml IV Q8 [facility] Last Admin: 10/05/18 07:04 Dose: 10 ml Documented by: Trazodone HCl (Desyrel) 50 mg PO QHS [facility] Last Admin: 10/04/18 21:45 Dose: 50 mg Documented by: Medical - PN: A/P - Time Spent With Patient Total time spent is greater than 50% in coordination of care (as documented) at patient's floor/unit and/or counseling patient: - Narrative A/P Narrative: A: *Acute right side abd pain (sharp initially now mild and achy)?rupture/hemorrhage of a renal cyst vs passing of kidney stone vs less likely pancreatitis. sounds like she is also been having some referred pain likely from polycystic kidneys -lipase mildy elevated but pain not typical of pancreatitis, noncontrast CT no obvious cause -GB u/s unremarkable on admit except thickening, repeat with sludge but no thickening. -peritoneal fluid not infected -f/u CT a/p and pelvic u/s unremarkable -had unremarkable EGD/colonoscopy last april / repeat EGD done on 10/04 shows significant duodenal inflammation. likely etiology -IMPROVED but having N/V *Leukocytosis: reactive vs infectious. ?infected cyst vs other/ UTI? -UA unremarkable, no respiratory symptoms -f/u PCT elevated -component of which initially was likely recent medrol dose pack for OA, but has not been on steroids during admit Acute Duodenitis -seen by Dr Quiroz, likely cause of pain and nausea/vomiting, full liquid diet, started on ppi. *ESRD 2/2 Polycystic Kidney dz w/PD: follows with Dr. Russ *Anemia, chronic: *DM: *COPD (not on home O2, but uses husbands from time to time especially when she has a cold): -CXR mild left base parenchymal density likely atelectasis -requiring 1L NC *Anxiety/depression *HTN/HLD *GERD: *Hypomag: improved *Burning URine/ UTI -on IV cefeimpe, despite this pts symptoms are worsening, GPC involved? MDRO? await cultures, check to see if local skin infection is present. *costipatino -no obstruction/no significant stool burden noted on X ray P: - full liquid . -Nephrology following, PD and aranesp prn -cefepime per ID, changed from rocephin, follow up urine cultures and decide of further plan -prn electrolyte replacement -Dr. Harden consulted, want to do repeat EGD in 3 months, PPI for now, for duodenitis. -IS -home O2 eval prior to d/c -repeat ua positive, check local site for dysuria. will consider estrogen/miconazole cream to see if this helps. -ppx: heparin/pepcid Medical - PN: Qual - Stroke Symptom Onset Unknown: No - VTE Deep Vein Thrombosis/Pulmonary Embolism Present on Admission: No
[2018-10-05] MEDS ORDERED: POTASSIUM CHLORIDE 20 MEQ PACKET PO ONE (21:28)
[2018-10-05] MEDS: ATORVASTATIN 20 MG TABLET PO SCH (21:54)
[2018-10-05] MEDS: traZODone HCL 50 MG TABLET PO SCH (21:54)
[2018-10-06 05:14] LABS: Basophils # (Auto) 0 K/mcL (0.0-0.3); Basophils % (Auto) 0.2 % (0.0-2.0); Eosinophils # (Auto) 0.3 K/mcL (0.0-0.7); Eosinophils % (Auto) 3.4 % (0.0-7.0); Lymphocytes # (Auto) 2.3 K/mcL (1.5-4.8); Lymphocytes % (Auto) 24.6 % (15.5-49.0); Mean Cell Volume 84.9 fL (80.0-100.0); Mean Corpuscular HGB Conc 32.1 g/dL (31.0-36.0); Monocytes # (Auto) 1.5 K/mcL (0.1-0.9); Monocytes % (Auto) 15.8 % (1.0-12.0); Platelet Count 318 K/mcL (140-440); RBC 3.17 M/mcL (4.00-5.20); Red Cell Distribution Width 14.8 % (11.5-14.5)
[2018-10-06 05:46] LABS: ALT/SGPT 6 U/l (0-40); Albumin 2.9 gm/dL (3.2-5.2); Alkaline Phosphatase 112 U/L (39-117); Bilirubin,Direct < 0.2 mg/dL (0.0-0.3); Blood Urea Nitrogen 44 mg/dl (8-23); Gamma Glutamyl Transpeptidase 19 U/L (5-36); Uric Acid 8.1 mg/dL (2.5-8.0)
[2018-10-06] MEDS: 0.9 % SODIUM CHLORIDE 10 ML SYRINGE IV SCH ×3 (06:31→20:49)
[2018-10-06] MEDS: INSULIN LISPRO 1 UNIT/0.01 ML UNIT SQ SCH ×4 (07:01→20:50)
--- NOTE | 2018-10-06 07:49 | Nephrology Progress Note ---
Subjective Patient information: Note initiated : 10/06/18 at 7:45 am Patient: Ema Vang 78 y/o F admitted on 09/29/18 for abdominal pain. Chief Complaint: Abdominal pain Principal diagnosis: Abdominal pain Pertinent ROS: Abdominal pain, resolved Dysuria, improved Nausea, resolved No flank pain No diarrhea No dysuria No edema Objective - Vital Signs Vital signs: Vital Signs Temp Pulse Resp BP BP BP Pulse Ox 10/06/18 07:20 98.3 F 20 150/62 91 10/06/18 04:00 98.6 F 56 L 16 132/58 92 10/05/18 23:22 98.7 F 66 24 H 142/66 93 10/05/18 20:09 97.7 F 156/71 10/05/18 20:00 98.1 F 67 20 122/58 91 10/05/18 19:51 97.7 F 156/71 10/05/18 15:22 97.7 F 73 16 156/71 90 10/05/18 11:25 97.3 F 64 16 148/64 91 10/05/18 08:00 97.8 F 71 16 110/62 92 Intake and Output 10/05/18 10/06/18 10/06/18 21:59 05:59 13:59 Intake Total 1140 100 Output Total 400 Balance 740 100 Intake: Oral 1140 100 Output: Void Amount 400 Other: Meal Lunch Percent of Meal Consumed 100% Feeding Ability Independent Urine Appearance Clear Urine Color Bright Yellow Urine Odor Normal Stool Size Large Stool Color Brown Stool Consistency Soft # Voids 1 # Bowel Movements 1 Weight 161 lb Intake & Output: Intake & Output 10/05/18 10/06/18 10/06/18 21:59 05:59 13:59 Intake Total 1140 100 Output Total 400 Balance 740 100 Weight 161 lb Intake: Oral 1140 100 Output: Void Amount 400 Other: Meal Lunch Percent of Meal Consumed 100% Feeding Ability Independent Urine Appearance Clear Urine Color Bright Yellow Urine Odor Normal Stool Size Large Stool Color Brown Stool Consistency Soft # Voids 1 # Bowel Movements 1 - General Appearance General appearance: appears started age, fatigue EENT: mucous membranes moist Neck: supple Respiratory: clear Cardiology: no edema Gastrointestinal: no tenderness Integumentary: no rash, warm and dry Neurologic: no focal deficit, alert and oriented x3 Musculoskeletal: no deformities Psychiatric: mood/affect appropriate, cooperative - Lab 10/06/18 04:30 10/06/18 04:30 Most recent lab results Calcium 9.5 mg/dl (8.6-10.4) 10/06/18 04:30 Phosphorus 5.5 mg/dL (2.7-4.5) H 10/06/18 04:30 Magnesium 1.7 mg/dL (1.6-2.5) 10/06/18 04:30 Assessment and Plan (1) ESRD on peritoneal dialysis Ema Vang is a 78-year-old female with end-stage renal disease on chronic peritoneal dialysis (followed by Dr. 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 She reported sudden onset abdominal pain (at 8:30PM last night), generalized, but mostly lower abdominal, constant not crampy, never resolved since started, associated with nausea and vomiting (not coffee ground or bloody), no diarrhea or constipation. Last BM yesterday light brown. PD fluid clear. No problems with PD dwell or drain. urine looked somewhat bloody but no dysuria. She has been on Prednisone taper off for arthritis. No other new medications. Renal cyst rupture/hemorrhage or nephrolithiasis considered due to sudden onset abdominal pain. Ciprofloxacin was given for suspected renal cyst infection due to leukocytosis, however this could also be due to Prednisone she was recently started. Acute pancreatitis suspected due to lipase elevation. Recent work up: EGD on 05/04/18: Schatzki's ring. Gastric polyp. Query celiac. Colonoscopy on 05/04/18: Colonic polyps. Query microscopic colitis. CT Abdomen and Pelvis on 07/30/18: Pneumoperitoneum. This is probably iatrogenic secondary to peritoneal dialysis catheter. Multiple large renal cysts consistent with polycystic kidney disease. No hydronephrosis . Mild diverticulosis. No evidence for diverticulitis. Extensive calcified atherosclerotic disease. Work up: Labs on 09/29/18: PD Fluid cell count: Nucleated cells 16, 10% neutrophils Gram stain no polys, no organism Culture pending CT KUB on 09/29/18: History of polycystic kidney disease and renal failure. Extensive atherosclerotic disease. No abdominal aortic aneurysm. No acute or focal abnormality. Gall bladder US on 10/09/18: Negative examination for cholelithiasis. Trace pericholecystic fluid. No other abnormality. CT Abdomen and Pelvis with oral contrast on 10/01/18: Polycystic kidney disease. Patient is on peritoneal dialysis. There is intraperitoneal fluid which may be dialysate. No acute intra-abdominal abnormality. Transvaginal US on 10/01/18: Mild free pelvic fluid. Previous hysterectomy. Ovaries are not visualized Gall bladder US on 10/03/18: Mild biliary sludge in the dependent portion of the gallbladder. This is a new finding. No discrete calculi. No gallbladder wall thickening. There is minimal pericholecystic fluid which may be from peritoneal dialysis. Possible 10 mm pancreatic head mass. Further evaluation recommended. Progress: Edema, resolved Plan: CCPD with 1.5/2.5%, total volume 7,200 ml, 4 exchanges of 1,800 ml, total time 9 hours. Status: Chronic Priority: Medium (2) Anemia due to end stage renal disease Aranesp 40 mcg IV x 1 on 09/30/18 for Hb <10 Aranesp 100 mcg IV x 1 on 10/05/18 for Hb <10 Status: Chronic Priority: Medium (3) Secondary hyperparathyroidism of renal origin Sensipar 60 mg daily resumed due to hypercalcemia Status: Chronic Priority: Medium
[2018-10-06] MEDS ORDERED: DARBEPOETIN ALFA 100 MCG/ML VIAL SQ ONE (10:00)
[2018-10-06] MEDS: SEVELAMER 800 MG TABLET PO SCH ×3 (10:30→17:28)
[2018-10-06] MEDS: FUROSEMIDE 40 MG TABLET PO SCH ×2 (10:31→20:49)
[2018-10-06] MEDS: LISINOPRIL 5 MG TABLET PO SCH ×2 (10:32→20:48)
[2018-10-06] MEDS: DOCUSATE SODIUM 100 MG CAPSULE PO SCH ×2 (10:32→20:49)
[2018-10-06] MEDS: ONDANSETRON 4 MG ODT TABLET SL SCH (10:32)
[2018-10-06] MEDS: CARVEDILOL 12.5 MG TABLET PO SCH ×2 (10:32→17:28)
[2018-10-06] MEDS: SALMETEROL INH SCH ×2 (10:33→20:49)
[2018-10-06] MEDS: CINACALCET 30 MG TABLET PO SCH (10:33)
[2018-10-06] MEDS: amLODIPine 10 MG TABLET PO SCH (10:33)
[2018-10-06] MEDS: FLUTICASONE INH SCH ×2 (10:33→20:49)
[2018-10-06] MEDS: PANTOPRAZOLE 40 MG PACKET PO SCH (10:43)
[2018-10-06] MEDS ORDERED: POTASSIUM CHLORIDE 20 MEQ PACKET PO ONE (11:05)
--- NOTE | 2018-10-06 11:12 | Internal Med Progress Note ---
Medical - PN: Subj Patient information: Note initiated : 10/06/18 at 11:09 am Service Date, if different from initiated Date: [] Patient: Ema Vang a 78 y/o F admitted on 09/29/18 for abdominal pain. Chief Complaint: [] Interval history: Ms. Vang is a 78 year old F with a history of end-stage renal disease on peritoneal dialysis, diabetes, COPD, depression anxiety, chronic diarrhea who presents with abdominal pain acutely. Patient reports that last night while starting to watching TV while she was sitting on the couch developed sudden severe pain in her abdominal lower quadrants bilaterally. Pain is described as a crampy pain she thought she had gas or had to go to the bathroom, rated at 10 out of 10. She took a pain medication which she said was oxycodone and was able to fall asleep but she was only asleep for a few hours. And still had pain. This morning she still had pain which is not rhythm improved and thus brought her in the ER. In the ED she did receive some pain medications by the time I saw her she said her pain was down to a 6 and appears comfortable in bed. She was feeling fine up to this point no recent illnesses no sick contacts no trauma or sudden twisting of her trunk. She did note that she did have some sharp flank pain on that right side for the past 3 weeks and did see her primary care provider for it. In the ED workup showed vital signs are essentially stable with a heart rate 92- 98 other parameters within normal limits. She did have a leukocytosis, again was afebrile. Lactic acid was within normal limits, urinalysis unremarkable for an infectious signs, but did have RBCs present. Noncontrast CT abdomen pelvis showed no acute pathology, no evidence of free intraperitoneal fluid intra-abdominal abscess or pneumoperitoneum or pneumatosis. Did show already known multiple large renal cysts. Dr. Alarcon saw the patient in the ED. Patient denies any epigastric pain. Lipase mildly elevated at 247. Concern for possible rupture of 1 of her renal cysts, antibiotic started given leukocytosis and concern for possibly infected cyst. She had a normal bowel movement last night. She did take a suppository last night after the pain started because that she previously stated felt like she needed to have a bowel movement but was not able to go. 09/30 No overnight events. Abdominal pain is less severe today. He has some nausea and retching. Tolerating clear liquid diet well. Did not have any reaction to Cipro, will switch back Rocephin to Cipro per nephro note. Getting PD right now. Gallbladder ultrasound unremarkable. 10/01 States his abdominal pain again especially lower quadrants, has not had a bowel movement since Monday. States she has burning when she urinates 10/02 Pain improving. She did have some nausea after medication this morning. No other new complaints other than wants an advance in her diet 10/03 Nausea vomitus morning. Abdominal pain, requiring decreased prn pain medications. no BM yet. Continues to have dysuria. 10/04 Slept well last night. Complains of dysuria. States no significant abdominal pain. Did not require any pain medication overnight shift. 10/05 Pt seen examined, no acute ovenright issues EGD findings reviewed, started on PPI as per GI reccs Pt still constipated, X ray does not show significant stool burden pt reports some nausea, but able to tolerate liquid diet today, will advance to full liquid patient has burning micturation, despite being on antibiotics, repeat UA suggestive of UTI, will repeat cultures, pt on cefepime, MDRO, not a clean sample? Will also see if local fungal infection is playing a role. pt may benefit from topical estrogen/antifungal cream. 10/06 Pt seen examined, nausea better, tolerated full liquid diet well, transition to regular consistency with renal diet still has burning urine, urine cx is neg, await final report start on topical antifungal cream for now, we do not have topical estrogen cream available in the hospital. Pertinent ROS: Denies headache, dizziness Denies chest pain, palpitations Denies cough or shortness of breath Denies abdominal pain, nausea or vomiting. burning micturation present. - Constitutional Vitals: Vital Signs Temp Pulse Resp BP Pulse Ox 98.3 F 56 L 20 150/62 91 10/06/18 07:20 10/06/18 04:00 10/06/18 07:20 10/06/18 07:20 10/06/18 07:20 Period Temp Pulse Resp BP Sys/Hartman Pulse Ox Last 24 Hr 97.3 F-98.7 F 56-73 16-24 122-156/58-71 90-93 Intake and Output 10/05/18 10/06/18 10/06/18 21:59 05:59 13:59 Intake Total 1140 100 Output Total 400 Balance 740 100 Weight 161 lb Intake & Output: Intake & Output 10/05/18 10/06/18 10/06/18 21:59 05:59 13:59 Intake Total 1140 100 Output Total 400 Balance 740 100 Weight 161 lb Intake: Oral 1140 100 Output: Void Amount 400 Other: Meal Lunch Breakfast Percent of Meal Consumed 100% 100% Feeding Ability Independent Independent Urine Appearance Clear Urine Color Bright Yellow Urine Odor Normal Stool Size Large Stool Color Brown Stool Consistency Soft # Voids 1 # Bowel Movements 1 Exam: Constitutional; Afebrile, cooperative, alert, not in distress. Respiratory system: Air Entry equal on both sides, No crackles or wheezing, no rhonchi. CVS- Rate rhythm regular, S1,S2 heard, no gallop, no rub. Abdomen- Soft nontender abdomen, no organomegaly, no tenderness, no guarding or rigidity, FIRE PILOT- AOOx3, moving all extremities, no gross focal deficit noted. Medical - PN: Obj Da - Labs CBC & Chem 7: 10/06/18 04:30 10/06/18 04:30 Labs: Abnormal Lab Results 10/06/18 10/06/18 10/05/18 04:30 04:30 09:15 WBC RBC 3.17 L Hgb 8.6 L Hct 26.9 L RDW 14.8 H Lymph % (Auto) Gonzales % (Auto) 15.8 H Gran # Gonzales # (Auto) 1.5 H Lymphocytes % Monocytes % (Manual) RBC Morphology Anisocytosis ESR Sodium Potassium Chloride Carbon Dioxide 31 H BUN 44 H Creatinine 7.2 H* Glucose 144 H Uric Acid 8.1 H Phosphorus 5.5 H C-Reactive Protein Total Protein Albumin 2.9 L Albumin/Globulin Ratio Amylase Lipase Urine Protein 30 A Urine Occult Blood 0.2 A Ur Leukocyte Esterase 500 A Urine RBC 76 H Urine WBC > 182 H Ur Squamous Epith Cells 5 H Urine Bacteria Few A 10/05/18 10/05/18 10/04/18 04:05 04:05 08:00 WBC RBC 3.08 L Hgb 8.5 L Hct 25.9 L RDW 15.0 H Lymph % (Auto) Gonzales % (Auto) 12.1 H Gran # Gonzales # (Auto) 1.2 H Lymphocytes % Monocytes % (Manual) RBC Morphology Anisocytosis ESR Sodium Potassium 3.2 L Chloride 93 L 93 L Carbon Dioxide BUN 51 H 58 H Creatinine 7.8 H* 7.5 H* Glucose 135 H Uric Acid 8.2 H Phosphorus 6.4 H* 7.0 H* C-Reactive Protein Total Protein 5.7 L 5.8 L Albumin 2.7 L 2.7 L Albumin/Globulin Ratio 0.9 L 0.9 L Amylase Lipase 115 H Urine Protein Urine Occult Blood Ur Leukocyte Esterase Urine RBC Urine WBC Ur Squamous Epith Cells Urine Bacteria 10/04/18 10/04/18 10/03/18 08:00 04:30 11:24 WBC 11.9 H RBC 3.14 L Hgb 8.6 L Hct 26.7 L RDW 15.0 H Lymph % (Auto) 14.9 L Gonzales % (Auto) Gran # 8.3 H Gonzales # (Auto) 1.4 H Lymphocytes % Monocytes % (Manual) RBC Morphology Anisocytosis ESR 84 H Sodium Potassium Chloride Carbon Dioxide BUN Creatinine Glucose Uric Acid Phosphorus C-Reactive Protein 15.7 H Total Protein Albumin Albumin/Globulin Ratio Amylase Lipase Urine Protein Urine Occult Blood Ur Leukocyte Esterase Urine RBC Urine WBC Ur Squamous Epith Cells Urine Bacteria 10/03/18 10/03/18 10:16 10:16 WBC RBC Hgb Hct RDW Lymph % (Auto) Gonzales % (Auto) Gran # Gonzales # (Auto) Lymphocytes % 14 L Monocytes % (Manual) 14 H RBC Morphology Abnorm A Anisocytosis 1+ A ESR Sodium 132 L Potassium Chloride 90 L Carbon Dioxide BUN 64 H Creatinine 7.8 H* Glucose 150 H Uric Acid Phosphorus 7.4 H* C-Reactive Protein 22.3 H Total Protein Albumin 2.9 L Albumin/Globulin Ratio 0.9 L Amylase 126 H Lipase 103 H Urine Protein Urine Occult Blood Ur Leukocyte Esterase Urine RBC Urine WBC Ur Squamous Epith Cells Urine Bacteria Meds: Medications Acetaminophen (Tylenol) 650 mg PO Q6HP PRN PRN Reason: PAIN/FEVER > 101 Amlodipine Besylate (Norvasc) 10 mg PO DAILY [facility] Last Admin: 10/06/18 10:33 Dose: 10 mg Documented by: Atorvastatin Calcium (Lipitor) 20 mg PO HS [facility] Last Admin: 10/05/18 21:54 Dose: 20 mg Documented by: Bisacodyl (Dulcolax) 10 mg DE Q2-3DAYS PRN PRN Reason: Constipation [facility] Last Admin: 10/06/18 10:32 Dose: 25 mg Documented by: Cefepime HCl (Maxipime) 1 gm IV Q48H [facility] Last Admin: 10/05/18 10:08 Dose: 1 gm Documented by: Cinacalcet (Sensipar) 60 [facility] Last Admin: 10/06/18 10:33 Dose: 60 mg Documented by: Clotrimazole (Mycelex Crm 1%) 1 dose TOPICAL BID [facility] Diagnostic Test (Pha) (Accu-Chek) 1 each FS [facility] Last Admin: 10/06/18 07:00 Dose: 1 each Documented by: Diphenhydramine HCl (Benadryl) 25 mg IV Q4-6HP PRN PRN Reason: Nausea Docusate Sodium (Colace) 100 mg PO BID [facility] Last Admin: 10/06/18 10:32 Dose: 100 mg Documented by: Furosemide (Lasix) 120 mg PO BID [facility] Last Admin: 10/06/18 10:31 Dose: 120 mg Documented by: Insulin Human Lispro (Humalog) 0 unit SQ [facility]; Protocol Last Admin: 10/06/18 07:01 Dose: Not Given Documented by: Lidocaine (Lidoderm) 1 patch TOPICAL PRN PRN PRN Reason: Pain Lisinopril (Zestril) 5 mg PO BID [facility] Last Admin: 10/06/18 10:32 Dose: 5 mg Documented by: Loperamide HCl (Imodium) 2 mg PO PRN PRN PRN Reason: Diarrhea Lorazepam (Ativan) 0.5 mg IV Q8HP PRN PRN Reason: Anxiety Ondansetron HCl (Zofran) 4 mg IV Q6HP PRN PRN Reason: Nausea And Vomiting Last Admin: 10/03/18 05:55 Dose: 4 mg Documented by: Ondansetron HCl (Zofran Odt) 4 mg SL DAILY [facility] Last Admin: 10/06/18 10:32 Dose: 4 mg Documented by: Pantoprazole S[facility]tonix) [facility] Last Admin: 10/06/18 10:43 Dose: 40 mg Documented by: Fluticasone/Salmeterol Hfa 230/21 Mcg Inhaler 1 dose INH BID [facility] Last Admin: 10/06/18 10:33 Dose: Not Given Documented by: Prochlorperazine (Compazine) 5 mg IV Q4HP PRN PRN Reason: Nausea And Vomiting Last Admin: 10/04/18 07:00 Dose: 5 mg Documented by: Sevelamer Carbonate (Renvela) 1,600 mg PO TIDCC [facility] Last Admin: 10/06/18 10:30 Dose: 1,600 mg Documented by: Sodium Chloride (Saline Flush) 10 ml IV Q8 [facility] Last Admin: 10/06/18 06:31 Dose: 10 ml Documented by: Trazodone HCl (Desyrel) 50 mg PO QHS [facility] Last Admin: 10/05/18 21:54 Dose: 50 mg Documented by: Medical - PN: A/P - Time Spent With Patient Total time spent is greater than 50% in coordination of care (as documented) at patient's floor/unit and/or counseling patient: - Narrative A/P Narrative: A: *Acute right side abd pain . -lipase mildly elevated but pain not typical of pancreatitis, noncontrast CT no obvious cause -GB u/s unremarkable on admit except thickening, repeat with sludge but no thickening. -peritoneal fluid not infected -f/u CT a/p and pelvic u/s unremarkable -had unremarkable EGD/colonoscopy last april / repeat EGD done on 10/04 shows significant duodenal inflammation. likely etiology -IMPROVED today, able to tolerate full liquid diet. *Leukocytosis: reactive vs infectious. ?infected cyst vs other/ UTI? -UA unremarkable, no respiratory symptoms -f/u PCT elevated -component of which initially was likely recent medrol dose pack for OA, but has not been on steroids during admit Acute Duodenitis -seen by Dr Quiroz, likely cause of pain and nausea/vomiting, full liquid diet, started on ppi. *ESRD 2/2 Polycystic Kidney dz w/PD: follows with Dr. Russ, nephrology yamil rivera. *Anemia, chronic: *DM: glucose stable, on ssi insulin *COPD (not on home O2, but uses husbands from time to time especially when she has a cold): -CXR mild left base parenchymal density likely atelectasis -back on room air now *Anxiety/depression *HTN/HLD *GERD: *Hypomag: improved *Burning Urine/ UTI -on IV cefeimpe, despite this pts symptoms are worsening, GPC involved? MDRO? await cultures, check to see if local skin infection is present. *constipation -no obstruction/no significant stool burden noted on X ray P: -regular consistency diet now. -Nephrology following, PD and aranesp prn -cefepime per ID, changed from rocephin, follow up urine cultures and decide of further plan -prn electrolyte replacement -Dr. Harden consulted, want to do repeat EGD in 3 months, PPI for now, for duodenitis. -IS -repeat ua positive, check local site for dysuria. started on topical antifungal cream, no estrogem cream in hospital. -ppx: heparin Medical - PN: Qual - Stroke Symptom Onset Unknown: No - VTE Deep Vein Thrombosis/Pulmonary Embolism Present on Admission: No
[2018-10-06] MEDS: CLOTRIMAZOLE CRM 1% 1 DOSE TUBE TOPICAL SCH ×2 (12:26→20:51)
--- NOTE | 2018-10-06 19:02 | Cat Scan Report ---
CLINICAL INFORMATION: History of polycystic kidney disease and renal failure. Hematuria COMPARISON: Previous CT scans a 10/01/2018 and 07/30/2018. Previous limited CT scan for renal biopsy dated 12/31/2009 TECHNIQUE: Axial images were obtained through the abdomen and pelvis. Sagittally and coronally reformatted images. FINDINGS: Multiple large renal cysts bilaterally. There are nonobstructing renal calculi. There is moderate left hydronephrosis and prominent left hydroureter. Hydronephrosis and hydroureter have increased slightly since 10/01/2018 and have increased significantly since 07/30/2018. Etiology is not certain. There is no detectable ureteral stone. Blood clot, sloughed papilla, recently passed stone or neoplasm at the ureterovesical junction are possible. Cystoscopy may be helpful for further evaluation. Follow-up noncontrast CT scan may be helpful to rule out a recently passed stone. CT IVP could also be performed if we are able to administer intravenous contrast material. Again demonstrated is a peritoneal dialysis shunt catheter. There is mild free intraperitoneal fluid. There is no localized fluid collection. No intra-abdominal abscess. Lung bases are negative. No pleural fluid. No pericardial fluid. Liver is negative to the limits of noncontrast enhanced examination. Gallbladder is present. Subtle calcification consistent with cholelithiasis. No dilated bile ducts. Spleen is negative. There are splenic granulomas. No significant enlargement. Pancreas is negative. No pancreatic mass or evidence for pancreatitis. Negative adrenal glands. There is calcification of the abdominal aorta. There is no abdominal aortic aneurysm. There are findings consistent with significant stenosis of the left common iliac artery. There is calcification at the origin of the celiac trunk and superior mesenteric artery. Hemodynamically significant stenosis is possible. There is contrast material within multiple colonic diverticuli. No evidence for diverticulitis. No detectable colonic mass. No appendicitis. No mechanical small bowel obstruction. No acute lumbar compression fractures. Patient has undergone previous posterior spinal fusion. Pelvis and sacrum are negative. IMPRESSION: 1. Increased left hydronephrosis and hydroureter. This is slightly increased since 10/01/2018 and definitely increased since 07/30/2018. There is no obstructing calculus identified. Clinical correlation for possible recently passed stone, sloughed papilla or blood clot, or tumor recommended. 2. Follow-up noncontrast enhanced CT scan may be helpful. Contrast-enhanced CT scan or cystoscopy may be necessary. 3. Density in the gallbladder consistent with cholelithiasis 4. Severe atherosclerotic disease. Probable significant stenosis in the left common iliac artery 5. Polycystic kidneys with renal failure. Hemodialysis shunt catheter is present. The exam was performed using radiation dose optimization techniques including, but not limited to, automated exposure control, adjustment of the mA and/or kV according to patient size and use of iterative reconstruction technique. Interpreted and Authenticated by: Kolby Dover 10/06/18
[2018-10-06] MEDS: ATORVASTATIN 20 MG TABLET PO SCH (20:49)
[2018-10-06] MEDS: traZODone HCL 50 MG TABLET PO SCH (20:50)
[2018-10-06] MEDS ORDERED: ESTROGENS, CONJUGATED 1 APPFUL TUBE 30GM VAG SCH (21:00)
[2018-10-07 04:59] LABS: Basophils # (Auto) 0 K/mcL (0.0-0.3); Basophils % (Auto) 0.2 % (0.0-2.0); Eosinophils # (Auto) 0.4 K/mcL (0.0-0.7); Granulocytes % (Auto) 58.7 % (38.0-78.0); Lymphocytes # (Auto) 2.4 K/mcL (1.5-4.8); Lymphocytes % (Auto) 22.8 % (15.5-49.0); Mean Cell Volume 85.6 fL (80.0-100.0); Mean Corpuscular HGB Conc 31.8 g/dL (31.0-36.0); Monocytes # (Auto) 1.5 K/mcL (0.1-0.9); Monocytes % (Auto) 14.3 % (1.0-12.0); Platelet Count 315 K/mcL (140-440); RBC 3.19 M/mcL (4.00-5.20); Red Cell Distribution Width 14.6 % (11.5-14.5)
[2018-10-07 05:29] LABS: ALT/SGPT 5 U/l (0-40); Alkaline Phosphatase 115 U/L (39-117); Bilirubin,Direct < 0.2 mg/dL (0.0-0.3); Blood Urea Nitrogen 37 mg/dl (8-23); Gamma Glutamyl Transpeptidase 18 U/L (5-36); Uric Acid 7.9 mg/dL (2.5-8.0)
[2018-10-07] MEDS: 0.9 % SODIUM CHLORIDE 10 ML SYRINGE IV SCH ×3 (05:48→20:12)
--- NOTE | 2018-10-07 06:46 | Nephrology Progress Note ---
Subjective Patient information: Note initiated : 10/07/18 at 6:40 am Patient: Ema Vang 78 y/o F admitted on 09/29/18 for abdominal pain. Chief Complaint: Abdominal pain Principal diagnosis: Abdominal pain Pertinent ROS: Left lower quadrant abdominal pain Gross hematuria Dysuria Nausea, resolved No flank pain No diarrhea No edema Objective - Vital Signs Vital signs: Vital Signs Temp Pulse Resp BP BP BP Pulse Ox 10/07/18 06:32 97.1 F 20 107/55 93 10/07/18 03:50 98.6 F 70 16 114/54 91 10/06/18 23:50 98.8 F 62 20 81/46 92 10/06/18 19:54 98.2 F 113/51 10/06/18 19:20 98.2 F 67 20 113/51 90 10/06/18 16:00 98.2 F 20 130/59 91 10/06/18 11:21 97.8 F 20 137/60 93 10/06/18 07:20 98.3 F 20 150/62 91 Intake and Output 10/06/18 10/07/18 10/07/18 21:59 05:59 13:59 Intake Total 590 150 Output Total 675 150 Balance -85 0 Intake: Oral 590 150 Output: Void Amount 675 150 # of times incontinent of urine 0 Other: Meal Lunch Percent of Meal Consumed 100% Feeding Ability Independent Urine Appearance Clear Cloudy Urine Color Bright Red Bright Red Urine Odor Normal Stool Size Moderate Stool Consistency Soft # Voids 1 # Bowel Movements 1 Weight 159 lb Intake & Output: Intake & Output 10/06/18 10/07/18 10/07/18 21:59 05:59 13:59 Intake Total 590 150 Output Total 675 150 Balance -85 0 Weight 159 lb Intake: Oral 590 150 Output: Void Amount 675 150 # of times incontinent of urine 0 Other: Meal Lunch Percent of Meal Consumed 100% Feeding Ability Independent Urine Appearance Clear Cloudy Urine Color Bright Red Bright Red Urine Odor Normal Stool Size Moderate Stool Consistency Soft # Voids 1 # Bowel Movements 1 - General Appearance General appearance: appears started age, fatigue EENT: mucous membranes moist Neck: supple Respiratory: clear Cardiology: no edema Gastrointestinal: no tenderness Integumentary: warm and dry Neurologic: no focal deficit, alert and oriented x3 Musculoskeletal: no deformities Psychiatric: mood/affect appropriate, cooperative - Lab 10/07/18 03:50 10/07/18 03:50 Most recent lab results Calcium 9.1 mg/dl (8.6-10.4) 10/07/18 03:50 Phosphorus 4.7 mg/dL (2.7-4.5) H 10/07/18 03:50 Magnesium 1.7 mg/dL (1.6-2.5) 10/07/18 03:50 Assessment and Plan (1) ESRD on peritoneal dialysis Ema Vang is a 78-year-old female with end-stage renal disease on chronic peritoneal dialysis (followed by Dr. 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 She reported sudden onset abdominal pain (at 8:30PM last night), generalized, but mostly lower abdominal, constant not crampy, never resolved since started, associated with nausea and vomiting (not coffee ground or bloody), no diarrhea or constipation. Last BM yesterday light brown. PD fluid clear. No problems with PD dwell or drain. urine looked somewhat bloody but no dysuria. She has been on Prednisone taper off for arthritis. No other new medications. Renal cyst rupture/hemorrhage or nephrolithiasis considered due to sudden onset abdominal pain. Ciprofloxacin was given for suspected renal cyst infection due to leukocytosis, however this could also be due to Prednisone she was recently started. Acute pancreatitis suspected due to lipase elevation. Recent work up: EGD on 05/04/18: Schatzki's ring. Gastric polyp. Query celiac. Colonoscopy on 05/04/18: Colonic polyps. Query microscopic colitis. CT Abdomen and Pelvis on 07/30/18: Pneumoperitoneum. This is probably i atrogenic secondary to peritoneal dialysis catheter. Multiple large renal cysts consistent with polycystic kidney disease. No hydronephrosis . Mild diverticulosis. No evidence for diverticulitis. Extensive calcified atherosclerotic disease. Work up: Labs on 09/29/18: PD Fluid cell count: Nucleated cells 16, 10% neutrophils Gram stain no polys, no organism Culture pending CT KUB on 09/29/18: History of polycystic kidney disease and renal failure. Extensive atherosclerotic disease. No abdominal aortic aneurysm. No acute or focal abnormality. Gall bladder US on 10/09/18: Negative examination for cholelithiasis. Trace pericholecystic fluid. No other abnormality. CT Abdomen and Pelvis with oral contrast on 10/01/18: Polycystic kidney disease. Patient is on peritoneal dialysis. There is intraperitoneal fluid which may be dialysate. No acute intra-abdominal abnormality. Transvaginal US on 10/01/18: Mild free pelvic fluid. Previous hysterectomy. Ovaries are not visualized Gall bladder US on 10/03/18: Mild biliary sludge in the dependent portion of the gallbladder. This is a new finding. No discrete calculi. No gallbladder wall thickening. There is minimal pericholecystic fluid which may be from peritoneal dialysis. Possible 10 mm pancreatic head mass. Further evaluation recommended. CT Abdomen and Pelvis without contrast on 10/06/18: Increased left hydronephrosis and hydroureter. This is slightly increased since 10/01/2018 and definitely increased since 07/30/2018. There is no obstructing calculus identified. Clinical correlation for possible recently passed stone, sloughed papilla or blood clot, or tumor recommended. Follow-up noncontrast enhanced CT scan may be helpful. Contrast-enhanced CT scan or cystoscopy may be necessary. Density in the gallbladder consistent with cholelithiasis. Severe atherosclerotic disease. Probable significant stenosis in the left common iliac artery. Polycystic kidneys with renal failure. Hemodialysis shunt catheter is present. Progress: Left lower quadrant abdominal pain, gross hematuria and dysuri with left hydronephrosis and hydroureter without obstructing calculus on CT. Plan: CCPD with 1.5/2.5%, total volume 7,200 ml, 4 exchanges of 1,800 ml, total time 9 hours. Urology consultation recommended. Status: Chronic Priority: Medium (2) Anemia due to end stage renal disease Aranesp 40 mcg IV x 1 on 09/30/18 for Hb <10 Aranesp 100 mcg IV x 1 on 10/06/18 for Hb <10 Status: Chronic Priority: Medium (3) Secondary hyperparathyroidism of renal origin Sensipar 60 mg daily resumed due to hypercalcemia Status: Chronic Priority: Medium
[2018-10-07] MEDS: PANTOPRAZOLE 40 MG PACKET PO SCH (07:26)
[2018-10-07] MEDS: CINACALCET 30 MG TABLET PO SCH (08:01)
[2018-10-07] MEDS: SEVELAMER 800 MG TABLET PO SCH ×3 (08:01→17:05)
[2018-10-07] MEDS: ONDANSETRON 4 MG ODT TABLET SL SCH (08:02)
[2018-10-07] MEDS: INSULIN LISPRO 1 UNIT/0.01 ML UNIT SQ SCH ×4 (08:05→20:11)
[2018-10-07] MEDS: CARVEDILOL 12.5 MG TABLET PO SCH ×2 (08:06→17:05)
[2018-10-07] MEDS: FUROSEMIDE 40 MG TABLET PO SCH ×3 (08:07→20:12)
[2018-10-07] MEDS: DOCUSATE SODIUM 100 MG CAPSULE PO SCH ×2 (08:07→20:10)
[2018-10-07] MEDS: LISINOPRIL 5 MG TABLET PO SCH ×2 (08:24→20:12)
[2018-10-07] MEDS: amLODIPine 10 MG TABLET PO SCH (08:24)
[2018-10-07] MEDS: SALMETEROL INH SCH ×2 (08:24→20:11)
[2018-10-07] MEDS: FLUTICASONE INH SCH ×2 (08:24→20:11)
--- NOTE | 2018-10-07 08:30 | Internal Med Progress Note ---
Medical - PN: Subj Patient information: Note initiated : 10/07/18 at 8:25 am Service Date, if different from initiated Date: [] Patient: Ema Vang a 78 y/o F admitted on 09/29/18 for abdominal pain. Chief Complaint: [] Interval history: Ms. Vang is a 78 year old F with a history of end-stage renal disease on peritoneal dialysis, diabetes, COPD, depression anxiety, chronic diarrhea who presents with abdominal pain acutely. Patient reports that last night while starting to watching TV while she was sitting on the couch developed sudden severe pain in her abdominal lower quadrants bilaterally. Pain is described as a crampy pain she thought she had gas or had to go to the bathroom, rated at 10 out of 10. She took a pain medication which she said was oxycodone and was able to fall asleep but she was only asleep for a few hours. And still had pain. This morning she still had pain which is not rhythm improved and thus brought her in the ER. In the ED she did receive some pain medications by the time I saw her she said her pain was down to a 6 and appears comfortable in bed. She was feeling fine up to this point no recent illnesses no sick contacts no trauma or sudden twisting of her trunk. She did note that she did have some sharp flank pain on that right side for the past 3 weeks and did see her primary care provider for it. In the ED workup showed vital signs are essentially stable with a heart rate 92- 98 other parameters within normal limits. She did have a leukocytosis, again was afebrile. Lactic acid was within normal limits, urinalysis unremarkable for an infectious signs, but did have RBCs present. Noncontrast CT abdomen pelvis showed no acute pathology, no evidence of free intraperitoneal fluid intra-abdominal abscess or pneumoperitoneum or pneumatosis. Did show already known multiple large renal cysts. Dr. Alarcon saw the patient in the ED. Patient denies any epigastric pain. Lipase mildly elevated at 247. Concern for possible rupture of 1 of her renal cysts, antibiotic started given leukocytosis and concern for possibly infected cyst. She had a normal bowel movement last night. She did take a suppository last night after the pain started because that she previously stated felt like she needed to have a bowel movement but was not able to go. 09/30 No overnight events. Abdominal pain is less severe today. He has some nausea and retching. Tolerating clear liquid diet well. Did not have any reaction to Cipro, will switch back Rocephin to Cipro per nephro note. Getting PD right now. Gallbladder ultrasound unremarkable. 10/01 States his abdominal pain again especially lower quadrants, has not had a bowel movement since Monday. States she has burning when she urinates 10/02 Pain improving. She did have some nausea after medication this morning. No other new complaints other than wants an advance in her diet 10/03 Nausea vomitus morning. Abdominal pain, requiring decreased prn pain medications. no BM yet. Continues to have dysuria. 10/04 Slept well last night. Complains of dysuria. States no significant abdominal pain. Did not require any pain medication overnight shift. 10/05 Pt seen examined, no acute ovenright issues EGD findings reviewed, started on PPI as per GI reccs Pt still constipated, X ray does not show significant stool burden pt reports some nausea, but able to tolerate liquid diet today, will advance to full liquid patient has burning micturation, despite being on antibiotics, repeat UA suggestive of UTI, will repeat cultures, pt on cefepime, MDRO, not a clean sample? Will also see if local fungal infection is playing a role. pt may benefit from topical estrogen/antifungal cream. 10/06 Pt seen examined, nausea better, tolerated full liquid diet well, transition to regular consistency with renal diet still has burning urine, urine cx is neg, await final report start on topical antifungal cream for now, we do not have topical estrogen cream available in the hospital. 10/07 Pt seen examined, yesterday evening had catrachito hematuria, and continued burning during micturition. Microbiology is neg CT done shows left sided hydronephrosis, significant from July, and progressively getting worse since this Admit Urology consulted Pertinent ROS: Denies headache, dizziness Denies chest pain, palpitations Denies cough or shortness of breath Denies abdominal pain, nausea or vomiting. - Constitutional Vitals: Vital Signs Temp Pulse Resp BP Pulse Ox 97.1 F 70 20 107/55 93 10/07/18 06:32 10/07/18 03:50 10/07/18 06:32 10/07/18 06:32 10/07/18 06:32 Period Temp Pulse Resp BP Sys/Hartman Pulse Ox Last 24 Hr 97.1 F-98.8 F 62-70 16-20 81-137/46-60 90-93 Intake and Output 10/06/18 10/07/18 10/07/18 21:59 05:59 13:59 Intake Total 590 150 300 Output Total 675 150 Balance -85 0 300 Weight 159 lb Intake & Output: Intake & Output 10/06/18 10/07/18 10/07/18 21:59 05:59 13:59 Intake Total 590 150 300 Output Total 675 150 Balance -85 0 300 Weight 159 lb Intake: Oral 590 150 300 Output: Void Amount 675 150 # of times incontinent of urine 0 Other: Meal Lunch Percent of Meal Consumed 100% Feeding Ability Independent Urine Appearance Clear Cloudy Urine Color Bright Red Bright Red Urine Odor Normal Stool Size Moderate Stool Consistency Soft # Voids 1 # Bowel Movements 1 Exam: Constitutional; Afebrile, cooperative, alert, not in distress. Respiratory system: Air Entry equal on both sides, No crackles or wheezing, no rhonchi. CVS- Rate rhythm regular, S1,S2 heard, no gallop, no rub. Abdomen- Soft nontender abdomen, no organomegaly, no tenderness, no guarding or rigidity, [employer]- AOOx3, moving all extremities, no gross focal deficit noted. Medical - PN: Obj Da - Labs CBC & Chem 7: 10/07/18 03:50 10/07/18 03:50 Labs: Abnormal Lab Results 10/07/18 10/07/18 10/06/18 03:50 03:50 04:30 WBC RBC 3.19 L Hgb 8.7 L Hct 27.3 L RDW 14.6 H Lymph % (Auto) Winston % (Auto) 14.3 H Gran # Winston # (Auto) 1.5 H Potassium Chloride Carbon Dioxide 31 H BUN 37 H 44 H Creatinine 7.2 H* 7.2 H* Glucose 131 H 144 H Uric Acid 8.1 H Phosphorus 4.7 H 5.5 H Total Protein Albumin 3.0 L 2.9 L Albumin/Globulin Ratio Lipase Urine Protein Urine Occult Blood Ur Leukocyte Esterase Urine RBC Urine WBC Ur Squamous Epith Cells Urine Bacteria 10/06/18 10/05/18 10/05/18 04:30 09:15 04:05 WBC RBC 3.17 L Hgb 8.6 L Hct 26.9 L RDW 14.8 H Lymph % (Auto) Winston % (Auto) 15.8 H Gran # Winston # (Auto) 1.5 H Potassium 3.2 L Chloride 93 L Carbon Dioxide BUN 51 H Creatinine 7.8 H* Glucose 135 H Uric Acid 8.2 H Phosphorus 6.4 H* Total Protein 5.7 L Albumin 2.7 L Albumin/Globulin Ratio 0.9 L Lipase 115 H Urine Protein 30 A Urine Occult Blood 0.2 A Ur Leukocyte Esterase 500 A Urine RBC 76 H Urine WBC > 182 H Ur Squamous Epith Cells 5 H Urine Bacteria Few A 10/05/18 10/04/18 10/04/18 04:05 08:00 08:00 WBC 11.9 H RBC 3.08 L 3.14 L Hgb 8.5 L 8.6 L Hct 25.9 L 26.7 L RDW 15.0 H 15.0 H Lymph % (Auto) 14.9 L Winston % (Auto) 12.1 H Gran # 8.3 H Winston # (Auto) 1.2 H 1.4 H Potassium Chloride 93 L Carbon Dioxide BUN 58 H Creatinine 7.5 H* Glucose Uric Acid Phosphorus 7.0 H* Total Protein 5.8 L Albumin 2.7 L Albumin/Globulin Ratio 0.9 L Lipase Urine Protein Urine Occult Blood Ur Leukocyte Esterase Urine RBC Urine WBC Ur Squamous Epith Cells Urine Bacteria Meds: Medications Acetaminophen (Tylenol) 650 mg PO Q6HP PRN PRN Reason: PAIN/FEVER > 101 Amlodipine Besylate (Norvasc) 10 mg PO DAILY [facility] Last Admin: 10/07/18 08:24 Dose: Not Given Documented by: Atorvastatin Calcium (Lipitor) 20 mg PO [facility] Last Admin: 10/06/18 20:49 Dose: 20 mg Documented by: Bisacodyl (Dulcolax) 10 mg MD Q2-3DAYS PRN PRN Reason: Constipation Carvedilol (Coreg) 25 mg PO BIDCC [facility] Last Admin: 10/07/18 08:06 Dose: Not Given Documented by: Cefepime HCl (Maxipime) 1 gm IV Q48H [facility] Last Admin: 10/05/18 10:08 Dose: 1 gm Documented by: [facility]) [facility] Last Admin: 10/07/18 08:01 Dose: 60 mg Documented by: Clotrimazole (Mycelex Crm 1%) 1 dose TOPICAL BID [facility] Last Admin: 10/06/18 20:51 Dose: 1 dose Documented by: Diagnostic Test (Pha) (Accu-Chek) 1 each FS [facility] Last Admin: 10/07/18 07:26 Dose: 1 each Documented by: Diphenhydramine HCl (Benadryl) 25 mg IV Q4-6HP PRN PRN Reason: Nausea Docusate Sodium (Colace) 100 mg PO BID [facility] Last Admin: 10/07/18 08:07 Dose: Not Given Documented by: Furosemide (Lasix) 120 mg PO BID [facility] Last Admin: 10/07/18 08:09 Dose: 120 mg Documented by: Insulin Human Lispro (Humalog) 0 unit SQ [facility]; Protocol Last Admin: 10/07/18 08:05 Dose: Not Given Documented by: Lidocaine (Lidoderm) 1 patch TOPICAL PRN PRN PRN Reason: Pain Lisinopril (Zestril) 5 mg PO BID [facility] Last Admin: 10/07/18 08:24 Dose: Not Given Documented by: Loperamide HCl (Imodium) 2 mg PO PRN PRN PRN Reason: Diarrhea Lorazepam (Ativan) 0.5 mg IV Q8HP PRN PRN Reason: Anxiety Ondansetron HCl (Zofran) 4 mg IV Q6HP PRN PRN Reason: Nausea And Vomiting Last Admin: 10/03/18 05:55 Dose: 4 mg Documented by: Ondansetron HCl (Zofran Odt) 4 mg SL DAILY [facility] Last Admin: 10/07/18 08:02 Dose: 4 mg Documented by: Pantoprazole Sodium (Protonix) 40 mg PO QAMAC [facility] Last Admin: 10/07/18 07:26 Dose: 40 mg Documented by: Fluticasone/Salmeterol Hfa 230/21 Mcg Inhaler 1 dose INH BID [facility] Last Admin: 10/07/18 08:24 Dose: Not Given Documented by: Prochlorperazine (Compazine) 5 mg IV Q4HP PRN PRN Reason: Nausea And Vomiting Last Admin: 10/04/18 07:00 Dose: 5 mg Documented by: Sevelamer Carbonate (Renvela) 1,600 mg PO TIDCC [facility] Last Admin: 10/07/18 08:01 Dose: 1,600 mg Documented by: Sodium Chloride (Saline Flush) 10 ml IV Q8 [facility] Last Admin: 10/07/18 05:48 Dose: 10 ml Documented by: Trazodone HCl (Desyrel) 50 mg PO QHS [facility] Last Admin: 10/06/18 20:50 Dose: 50 mg Documented by: Medical - PN: A/P - Time Spent With Patient Total time spent is greater than 50% in coordination of care (as documented) at patient's floor/unit and/or counseling patient: - Narrative A/P Narrative: A: *Acute abdominal pain. -lipase mildly elevated but pain not typical of pancreatitis, noncontrast CT no obvious cause -GB u/s unremarkable on admit except thickening, repeat with sludge but no thickening. -peritoneal fluid not infected -f/u CT a/p and pelvic u/s unremarkable -had unremarkable EGD/colonoscopy last april / repeat EGD done on 10/04 shows significant duodenal inflammation. likely etiology -IMPROVED today, able to tolerate regular food now; -CT done 10/06 shows left hydronephrosis *Left hydronephrosis, with hydroureter (likelyi etiology of lower abdominal cramping pain on presentation and hematuria) - This is a new finding from Jul 2018, and getting worse compared to CT done during this Visit -Urology consulted. -no stone was noted. -Given that she is on PD, and we would like to preserve as much renal function as possible will keep the patient in house till evaluated by urology. *Leukocytosis: reactive vs infectious. ?infected cyst vs other/ UTI? -UA unremarkable, no respiratory symptoms -f/u PCT elevated -component of which initially was likely recent medrol dose pack for OA, but has not been on steroids during admit Acute Duodenitis -seen by Dr Quiroz, likely cause of pain and nausea/vomiting -resolved now, tolerating po diet well -on PPI *ESRD 2/2 Polycystic Kidney dz w/PD: follows with Dr. Russ, nephrology following. *Anemia, chronic: *DM: glucose stable, on ssi insulin *COPD (not on home O2, but uses husbands from time to time especially when she has a cold): -CXR mild left base parenchymal density likely atelectasis -back on room air now *Anxiety/depression *HTN/HLD *GERD: *Hypomag: improved *Burning Urine/ UTI -on IV cefeimpe, despite this pts symptoms are worsening, GPC involved? MDRO? await cultures, check to see if local skin infection is present. *constipation -no obstruction/no significant stool burden noted on X ray P: -regular consistency diet now. _urology consulted, hopefully will get Cystoscopy tomorrow, will keep NPO MN just incase. -Nephrology following, PD and aranesp prn -continue on cefepime per ID, changed from rocephin, follow up urine cultures and decide of further plan -prn electrolyte replacement -Dr. Harden consulted, want to do repeat EGD in 3 months, PPI for now, for duodenitis. -IS -repeat ua positive, check local site for dysuria. started on topical antifungal cream, no estrogem cream in hospital. -ppx: heparin Medical - PN: Qual - Stroke Symptom Onset Unknown: No - VTE Deep Vein Thrombosis/Pulmonary Embolism Present on Admission: No
[2018-10-07] MEDS: CEFEPIME 2 GM VIAL IV SCH (09:57)
[2018-10-07] MEDS: CLOTRIMAZOLE CRM 1% 1 DOSE TUBE TOPICAL SCH ×2 (11:19→20:12)
[2018-10-07] MEDS: ATORVASTATIN 20 MG TABLET PO SCH (20:12)
[2018-10-07] MEDS: traZODone HCL 50 MG TABLET PO SCH (20:12)
[2018-10-08] MEDS: 0.9 % SODIUM CHLORIDE 10 ML SYRINGE IV SCH ×3 (04:01→21:31)
[2018-10-08 05:46] LABS: Basophils # (Auto) 0 K/mcL (0.0-0.3); Basophils % (Auto) 0.4 % (0.0-2.0); Eosinophils # (Auto) 0.3 K/mcL (0.0-0.7); Eosinophils % (Auto) 2.7 % (0.0-7.0); Granulocytes % (Auto) 65.8 % (38.0-78.0); Lymphocytes # (Auto) 2.4 K/mcL (1.5-4.8); Lymphocytes % (Auto) 19.4 % (15.5-49.0); Mean Corpuscular HGB Conc 31.8 g/dL (31.0-36.0); Monocytes # (Auto) 1.5 K/mcL (0.1-0.9); Monocytes % (Auto) 11.7 % (1.0-12.0); Platelet Count 305 K/mcL (140-440); RBC 3.08 M/mcL (4.00-5.20)
[2018-10-08 06:20] LABS: ALT/SGPT < 5 U/l (0-40); Albumin 2.9 gm/dL (3.2-5.2); Albumin/Globulin Ratio 1.1 (1.0-2.3); Alkaline Phosphatase 109 U/L (39-117); Bilirubin,Direct < 0.2 mg/dL (0.0-0.3); Blood Urea Nitrogen 41 mg/dl (8-23); Gamma Glutamyl Transpeptidase 16 U/L (5-36)
--- NOTE | 2018-10-08 06:33 | Nephrology Progress Note ---
Subjective Patient information: Note initiated : 10/08/18 at 6:32 am Patient: Ema Vang 78 y/o F admitted on 09/29/18 for abdominal pain. Chief Complaint: Weakness Principal diagnosis: Abdominal pain Pertinent ROS: Left lower quadrant abdominal pain Gross hematuria Dysuria Nausea, resolved No flank pain No diarrhea No edema Objective - Vital Signs Vital signs: Vital Signs Temp Pulse Resp BP BP BP Pulse Ox 10/08/18 04:00 98 F 62 18 103/46 92 10/07/18 23:06 98.6 F 68 18 104/52 93 10/07/18 19:38 98.2 F 144/64 10/07/18 18:46 98.2 F 70 20 144/64 92 10/07/18 15:15 98.1 F 74 20 135/61 92 10/07/18 11:23 98.6 F 20 125/54 91 Intake and Output 10/07/18 10/08/18 10/08/18 21:59 05:59 13:59 Intake Total 480 200 Output Total 525 225 Balance -45 -25 Intake: Oral 480 200 Output: Void Amount 525 225 Other: Meal Lunch Percent of Meal Consumed 50% Feeding Ability Independent Urine Appearance Hematuria Urine Color Dark Red Bright Red Blood Tinged Blood Tinged Weight 156 lb Intake & Output: Intake & Output 10/07/18 10/08/18 10/08/18 21:59 05:59 13:59 Intake Total 480 200 Output Total 525 225 Balance -45 -25 Weight 156 lb Intake: Oral 480 200 Output: Void Amount 525 225 Other: Meal Lunch Percent of Meal Consumed 50% Feeding Ability Independent Urine Appearance Hematuria Urine Color Dark Red Bright Red Blood Tinged Blood Tinged - General Appearance General appearance: appears started age, fatigue EENT: mucous membranes moist Neck: supple Respiratory: clear Cardiology: no edema Gastrointestinal: no tenderness Integumentary: no rash, warm and dry Neurologic: no focal deficit, alert and oriented x3 Musculoskeletal: no deformities Psychiatric: mood/affect appropriate, cooperative - Lab 10/08/18 04:15 10/08/18 04:10 Most recent lab results Calcium 9.0 mg/dl (8.6-10.4) 10/08/18 04:10 Phosphorus 5.0 mg/dL (2.7-4.5) H 10/08/18 04:10 Magnesium 1.6 mg/dL (1.6-2.5) 10/08/18 04:10 Assessment and Plan (1) ESRD on peritoneal dialysis Ema Vang is a 78-year-old female with end-stage renal disease on chronic peritoneal dialysis (followed by Dr. 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 She reported sudden onset abdominal pain (at 8:30PM last night), generalized, but mostly lower abdominal, constant not crampy, never resolved since started, associated with nausea and vomiting (not coffee ground or bloody), no diarrhea or constipation. Last BM yesterday light brown. PD fluid clear. No problems with PD dwell or drain. urine looked somewhat bloody but no dysuria. She has been on Prednisone taper off for arthritis. No other new medications. Renal cyst rupture/hemorrhage or nephrolithiasis considered due to sudden onset abdominal pain. Ciprofloxacin was given for suspected renal cyst infection due to leukocytosis, however this could also be due to Prednisone she was recently started. Acute pancreatitis suspected due to lipase elevation. Recent work up: EGD on 05/04/18: Schatzki's ring. Gastric polyp. Query celiac. Colonoscopy on 05/04/18: Colonic polyps. Query microscopic colitis. CT Abdomen and Pelvis on 07/30/18: Pneumoperitoneum. This is probably iatrogenic secondary to peritoneal dialysis catheter. Multiple large renal cysts consistent with polycystic kidney disease. No hydronephrosis . Mild diverti culosis. No evidence for diverticulitis. Extensive calcified atherosclerotic disease. Work up: Labs on 09/29/18: PD Fluid cell count: Nucleated cells 16, 10% neutrophils Gram stain no polys, no organism Culture pending CT KUB on 09/29/18: History of polycystic kidney disease and renal failure. Extensive atherosclerotic disease. No abdominal aortic aneurysm. No acute or focal abnormality. Gall bladder US on 10/09/18: Negative examination for cholelithiasis. Trace pericholecystic fluid. No other abnormality. CT Abdomen and Pelvis with oral contrast on 10/01/18: Polycystic kidney disease. Patient is on peritoneal dialysis. There is intraperitoneal fluid which may be dialysate. No acute intra-abdominal abnormality. Transvaginal US on 10/01/18: Mild free pelvic fluid. Previous hysterectomy. Ovaries are not visualized Gall bladder US on 10/03/18: Mild biliary sludge in the dependent portion of the gallbladder. This is a new finding. No discrete calculi. No gallbladder wall thickening. There is minimal pericholecystic fluid which may be from peritoneal dialysis. Possible 10 mm pancreatic head mass. Further evaluation recommended. CT Abdomen and Pelvis without contrast on 10/06/18: Increased left hydronephrosis and hydroureter. This is slightly increased since 10/01/2018 and definitely increased since 07/30/2018. There is no obstructing calculus identified. Clinical correlation for possible recently passed stone, sloughed papilla or blood clot, or tumor recommended. Follow-up noncontrast enhanced CT scan may be helpful. Contrast-enhanced CT scan or cystoscopy may be necessary. Density in the gallbladder consistent with cholelithiasis. Severe atherosclerotic disease. Probable significant stenosis in the left common iliac artery. Polycystic kidneys with renal failure. Hemodialysis shunt catheter is present. Progress: Left lower quadrant abdominal pain, gross hematuria and dysuri with left hydronephrosis and hydroureter without obstructing calculus on CT. Plan: CCPD with 1.5/2.5%, total volume 7,200 ml, 4 exchanges of 1,800 ml, total time 9 hours. Urology consultation pending. Status: Chronic Priority: Medium (2) Anemia due to end stage renal disease Aranesp 40 mcg IV x 1 on 09/30/18 for Hb <10 Aranesp 100 mcg IV x 1 on 10/06/18 for Hb <10 Status: Chronic Priority: Medium (3) Secondary hyperparathyroidism of renal origin Sensipar 60 mg daily resumed due to hypercalcemia Status: Chronic Priority: Medium
[2018-10-08] MEDS: PANTOPRAZOLE 40 MG PACKET PO SCH (07:28)
[2018-10-08] MEDS: INSULIN LISPRO 1 UNIT/0.01 ML UNIT SQ SCH ×4 (07:28→21:30)
[2018-10-08] MEDS: CINACALCET 30 MG TABLET PO SCH (07:29)
[2018-10-08] MEDS: CARVEDILOL 12.5 MG TABLET PO SCH ×2 (07:29→16:46)
[2018-10-08] MEDS: SEVELAMER 800 MG TABLET PO SCH ×3 (07:29→16:46)
[2018-10-08] MEDS ORDERED: ceFAZolin 1 GM VIAL IV SCH (07:45)
--- NOTE | 2018-10-08 07:47 | General Surgery Progress Note ---
Subjective Narrative: Note initiated : 10/08/18 at 7:46 am Service Date, if different from initiated Date: [] Patient: Ema Vang 78 y/o F admitted on 09/29/18 for abdominal pain. Chief Complaint: [] patient examined and note dictated. to surgery today. Objective Temp Pulse Resp BP Pulse Ox 97.4 F 81 14 138/54 93 10/08/18 06:50 10/08/18 06:50 10/08/18 06:50 10/08/18 06:50 10/08/18 06:50 - Additional Data Intake & Output - Last 24 hours: Intake & Output 10/06/18 10/07/18 10/08/18 10/09/18 05:59 05:59 05:59 05:59 Intake Total 9531 964 2853 Output Total 1000 1225 875 Balance 240 -485 345 Weight 161 lb 159 lb 156 lb - Labs 10/08/18 04:15 10/08/18 04:10 Diabetes panel 10/08/18 Range/Units 04:10 Sodium 140 (133-145) mmol/L Potassium 3.6 (3.3-5.1) mmol/L Chloride 97 (96-108) mmol/L Carbon Dioxide 29 (22-30) mmol/L BUN 41 H (8-23) mg/dl Creatinine 7.4 H* (0.6-1.1) mg/dl Glucose 138 H (70-105) mg/dL Calcium 9.0 (8.6-10.4) mg/dl AST 7 (0-37) U/l ALT < 5 (0-40) U/l Alkaline Phosphatase 109 (39-117) U/L Total Protein 5.5 L (5.9-8.4) gm/dL Albumin 2.9 L (3.2-5.2) gm/dL Triglycerides 141 (<150) mg/dl Calcium panel 10/08/18 Range/Units 04:10 Calcium 9.0 (8.6-10.4) mg/dl Phosphorus 5.0 H (2.7-4.5) mg/dL Albumin 2.9 L (3.2-5.2) gm/dL Pituitary panel 10/08/18 Range/Units 04:10 Sodium 140 (133-145) mmol/L Potassium 3.6 (3.3-5.1) mmol/L Chloride 97 (96-108) mmol/L Carbon Dioxide 29 (22-30) mmol/L BUN 41 H (8-23) mg/dl Creatinine 7.4 H* (0.6-1.1) mg/dl Glucose 138 H (70-105) mg/dL Calcium 9.0 (8.6-10.4) mg/dl Adrenal panel 10/08/18 Range/Units 04:10 Sodium 140 (133-145) mmol/L Potassium 3.6 (3.3-5.1) mmol/L Chloride 97 (96-108) mmol/L Carbon Dioxide 29 (22-30) mmol/L BUN 41 H (8-23) mg/dl Creatinine 7.4 H* (0.6-1.1) mg/dl Glucose 138 H (70-105) mg/dL Calcium 9.0 (8.6-10.4) mg/dl Total Bilirubin 0.2 (0.0-1.0) mg/dL AST 7 (0-37) U/l ALT < 5 (0-40) U/l Alkaline Phosphatase 109 (39-117) U/L Total Protein 5.5 L (5.9-8.4) gm/dL Albumin 2.9 L (3.2-5.2) gm/dL Assessment and Plan - Time Spent With Patient Total time spent is greater than 50% in coordination of care (as documented) at patient's floor/unit and/or counseling patient:
--- NOTE | 2018-10-08 08:13 | Internal Med Progress Note ---
Medical - PN: Subj Patient information: Note initiated : 10/08/18 at 8:11 am Service Date, if different from initiated Date: [] Patient: Ema Vang a 78 y/o F admitted on 09/29/18 for abdominal pain. Chief Complaint: [] Interval history: Ms. Vang is a 78 year old F with a history of end-stage renal disease on peritoneal dialysis, diabetes, COPD, depression anxiety, chronic diarrhea who presents with abdominal pain acutely. Patient reports that last night while starting to watching TV while she was sitting on the couch developed sudden severe pain in her abdominal lower quadrants bilaterally. Pain is described as a crampy pain she thought she had gas or had to go to the bathroom, rated at 10 out of 10. She took a pain medication which she said was oxycodone and was able to fall asleep but she was only asleep for a few hours. And still had pain. This morning she still had pain which is not rhythm improved and thus brought her in the ER. In the ED she did receive some pain medications by the time I saw her she said her pain was down to a 6 and appears comfortable in bed. She was feeling fine up to this point no recent illnesses no sick contacts no trauma or sudden twisting of her trunk. She did note that she did have some sharp flank pain on that right side for the past 3 weeks and did see her primary care provider for it. In the ED workup showed vital signs are essentially stable with a heart rate 92- 98 other parameters within normal limits. She did have a leukocytosis, again was afebrile. Lactic acid was within normal limits, urinalysis unremarkable for an infectious signs, but did have RBCs present. Noncontrast CT abdomen pelvis showed no acute pathology, no evidence of free intraperitoneal fluid intra-abdominal abscess or pneumoperitoneum or pneumatosis. Did show already known multiple large renal cysts. Dr. Alarcon saw the patient in the ED. Patient denies any epigastric pain. Lipase mildly elevated at 247. Concern for possible rupture of 1 of her renal cysts, antibiotic started given leukocytosis and concern for possibly infected cyst. She had a normal bowel movement last night. She did take a suppository last night after the pain started because that she previously stated felt like she needed to have a bowel movement but was not able to go. 09/30 No overnight events. Abdominal pain is less severe today. He has some nausea and retching. Tolerating clear liquid diet well. Did not have any reaction to Cipro, will switch back Rocephin to Cipro per nephro note. Getting PD right now. Gallbladder ultrasound unremarkable. 10/01 States his abdominal pain again especially lower quadrants, has not had a bowel movement since Monday. States she has burning when she urinates 10/02 Pain improving. She did have some nausea after medication this morning. No other new complaints other than wants an advance in her diet 10/03 Nausea vomitus morning. Abdominal pain, requiring decreased prn pain medications. no BM yet. Continues to have dysuria. 10/04 Slept well last night. Complains of dysuria. States no significant abdominal pain. Did not require any pain medication overnight shift. 10/05 Pt seen examined, no acute ovenright issues EGD findings reviewed, started on PPI as per GI reccs Pt still constipated, X ray does not show significant stool burden pt reports some nausea, but able to tolerate liquid diet today, will advance to full liquid patient has burning micturation, despite being on antibiotics, repeat UA suggestive of UTI, will repeat cultures, pt on cefepime, MDRO, not a clean sample? Will also see if local fungal infection is playing a role. pt may benefit from topical estrogen/antifungal cream. 10/06 Pt seen examined, nausea better, tolerated full liquid diet well, transition to regular consistency with renal diet still has burning urine, urine cx is neg, await final report start on topical antifungal cream for now, we do not have topical estrogen cream available in the hospital. 10/07 Pt seen examined, yesterday evening had catrachito hematuria, and continued burning during micturition. Microbiology is neg CT done shows left sided hydronephrosis, significant from July, and progressively getting worse since this Admit Urology consulted 10/08 Pt seen examined, some crapming pain in lower abdomen today, Urology eval appreciated, plan for cystoscopy today. Pertinent ROS: Denies headache, dizziness Denies chest pain, palpitations Denies cough or shortness of breath present abdominal pain,No nausea or vomiting. - Constitutional Vitals: Vital Signs Temp Pulse Resp BP Pulse Ox 97.4 F 81 16 138/54 93 10/08/18 06:50 10/08/18 07:47 10/08/18 07:47 10/08/18 06:50 10/08/18 07:47 Period Temp Pulse Resp BP Sys/Hartman Pulse Ox Last 24 Hr 97.4 F-98.6 F 62-81 14-20 103-144/46-64 91-93 Intake and Output 10/07/18 10/08/18 10/08/18 21:59 05:59 13:59 Intake Total 480 200 Output Total 525 225 50 Balance -45 -25 -50 Weight 156 lb Intake & Output: Intake & Output 10/07/18 10/08/18 10/08/18 21:59 05:59 13:59 Intake Total 480 200 Output Total 525 225 50 Balance -45 -25 -50 Weight 156 lb Intake: Oral 480 200 Output: Void Amount 525 225 50 Other: Meal Lunch Percent of Meal Consumed 50% Feeding Ability Independent Urine Appearance Hematuria Hematuria Urine Color Dark Red Bright Red Bright Red Blood Tinged Blood Tinged Blood Tinged Urine Odor Normal # Voids 1 Exam: Constitutional; Afebrile, cooperative, alert, not in distress. Respiratory system: Air Entry equal on both sides, No crackles or wheezing, no rhonchi. CVS- Rate rhythm regular, S1,S2 heard, no gallop, no rub. Abdomen- Soft nontender abdomen, no organomegaly, no tenderness, no guarding or rigidity, [employer]- AOOx3, moving all extremities, no gross focal deficit noted. Medical - PN: Obj Da - Labs CBC & Chem 7: 10/08/18 04:15 10/08/18 04:10 Labs: Abnormal Lab Results 10/08/18 10/08/18 10/07/18 04:15 04:10 03:50 WBC 12.6 H RBC 3.08 L Hgb 8.3 L Hct 26.2 L RDW 15.0 H [place] % (Auto) Gran # 8.3 H [place] # (Auto) 1.5 H Carbon Dioxide BUN 41 H 37 H Creatinine 7.4 H* 7.2 H* Glucose 138 H 131 H Uric Acid Phosphorus 5.0 H 4.7 H Total Protein 5.5 L Albumin 2.9 L 3.0 L Urine Protein Urine Occult Blood Ur Leukocyte Esterase Urine RBC Urine WBC Ur Squamous Epith Cells Urine Bacteria 10/07/18 10/06/18 10/06/18 03:50 04:30 04:30 WBC RBC 3.19 L 3.17 L Hgb 8.7 L 8.6 L Hct 27.3 L 26.9 L RDW 14.6 H 14.8 H [place] % (Auto) 14.3 H 15.8 H Gran # [place] # (Auto) 1.5 H 1.5 H Carbon Dioxide 31 H BUN 44 H Creatinine 7.2 H* Glucose 144 H Uric Acid 8.1 H Phosphorus 5.5 H Total Protein Albumin 2.9 L Urine Protein Urine Occult Blood Ur Leukocyte Esterase Urine RBC Urine WBC Ur Squamous Epith Cells Urine Bacteria 10/05/18 09:15 WBC RBC Hgb Hct RDW [place] % (Auto) Gran # [place] # (Auto) Carbon Dioxide BUN Creatinine Glucose Uric Acid Phosphorus Total Protein Albumin Urine Protein 30 A Urine Occult Blood 0.2 A Ur Leukocyte Esterase 500 A Urine RBC 76 H Urine WBC > 182 H Ur Squamous Epith Cells 5 H Urine Bacteria Few A Meds: Medications Acetaminophen (Tylenol) 650 mg PO Q6HP PRN PRN Reason: PAIN/FEVER > 101 Last Admin: 10/07/18 22:04 Dose: 650 mg Documented by: Amlodipine Besylate (Norvasc) 10 mg PO DAILY [facility] Last Admin: 10/07/18 08:24 Dose: Not Given Documented by: Atorvastatin Calcium (Lipitor) 20 mg PO [facility] Last Admin: 10/07/18 20:12 Dose: 20 mg Documented by: Bisacodyl (Dulcolax) 10 mg AL Q2-3DAYS PRN PRN Reason: Constipation [facility] Last Admin: 10/08/18 07:29 Dose: Not Given Documented by: Cefazolin Sodium (Ancef) 1 gm IV PREOP [facility] Stop: 10/08/18 12:00 Cefepime HCl (Maxipime) 1 gm IV Q48H [facility] Last Admin: 10/07/18 09:57 Dose: 1 gm Documented by: [facility]alc[facility] ([facility]ar) [facility] Last Admin: 10/08/18 07:29 Dose: Not Given Documented by: Clotrimazole (Mycelex Crm 1%) 1 dose TOPICAL BID [facility] Last Admin: 10/07/18 20:12 Dose: 1 dose Documented by: Diagnostic Test (Pha) (Accu-Chek) 1 each FS ACHS [facility] Last Admin: 10/08/18 07:28 Dose: 1 each Documented by: Diphenhydramine HCl (Benadryl) 25 mg IV Q4-6HP PRN PRN Reason: Nausea Docusate Sodium (Colace) 100 mg PO BID [facility] Last Admin: 10/07/18 20:10 Dose: Not Given Documented by: Furosemide (Lasix) 120 mg PO BID [facility] Last Admin: 10/07/18 20:12 Dose: 120 mg Documented by: Insulin Human Lispro (Humalog) 0 unit SQ [facility]; Protocol Last Admin: 10/08/18 07:28 Dose: Not Given Documented by: Lidocaine (Lidoderm) 1 patch TOPICAL PRN PRN PRN Reason: Pain Lisinopril (Zestril) 5 mg PO BID [facility] Last Admin: 10/07/18 20:12 Dose: 5 mg Documented by: Loperamide HCl (Imodium) 2 mg PO PRN PRN PRN Reason: Diarrhea Lorazepam (Ativan) 0.5 mg IV Q8HP PRN PRN Reason: Anxiety Last Admin: 10/07/18 22:05 Dose: 0.5 mg Documented by: Ondansetron HCl (Zofran) 4 mg IV Q6HP PRN PRN Reason: Nausea And Vomiting Last Admin: 10/03/18 05:55 Dose: 4 mg Documented by: Ondansetron HCl (Zofran Odt) 4 mg SL DAILY [facility] Last Admin: 10/07/18 08:02 Dose: 4 mg Documented by: Pantoprazole S[facility] (Protonix) [facility] Last Admin: 10/08/18 07:28 Dose: Not Given Documented by: Fluticasone/Salmeterol Hfa 230/21 Mcg Inhaler 1 dose INH BID [facility] Last Admin: 10/07/18 20:11 Dose: Not Given Documented by: Prochlorperazine (Compazine) 5 mg IV Q4HP PRN PRN Reason: Nausea And Vomiting Last Admin: 10/04/18 07:00 Dose: 5 mg Documented by: Sevelamer Carbonate (Renvela) 1,600 mg PO TIDCC [facility] Last Admin: 10/08/18 07:29 Dose: Not Given Documented by: Sodium Chloride (Saline Flush) 10 ml IV Q8 [facility] Last Admin: 10/08/18 04:01 Dose: 10 ml Documented by: Trazodone HCl (Desyrel) 50 mg PO QHS [facility] Last Admin: 10/07/18 20:12 Dose: 50 mg Documented by: Medical - PN: A/P - Time Spent With Patient Total time spent is greater than 50% in coordination of care (as documented) at patient's floor/unit and/or counseling patient: - Narrative A/P Narrative: A: *Acute abdominal pain. -lipase mildly elevated but pain not typical of pancreatitis, noncontrast CT no obvious cause -GB u/s unremarkable on admit except thickening, repeat with sludge but no thickening. -peritoneal fluid not infected -f/u CT a/p and pelvic u/s unremarkable(as per initial radiology read) -had unremarkable EGD/colonoscopy last april / repeat EGD done on 10/04 shows significant duodenal inflammation. -CT done 10/06 shows left hydronephrosis -Plan for cystoscopy today. *Left hydronephrosis, with hydroureter (likelyi etiology of lower abdominal cramping pain on presentation and hematuria) - This is a new finding from Jul 2018, and getting worse compared to CT done during this Visit -Urology consulted. -no stone was noted. -Given that she is on PD, and we would like to preserve as much renal function as possible will keep the patient in house till evaluated by urology. -Cystoscopy today 10/08 *Leukocytosis: reactive vs infectious. ?infected cyst vs other/ UTI? -UA unremarkable, no respiratory symptoms -f/u PCT elevated -component of which initially was likely recent medrol dose pack for OA, but has not been on steroids during admit Acute Duodenitis -seen by Dr Quiroz, likely cause of pain and nausea/vomiting -resolved now, tolerating po diet well -on PPI -repeat EGD in 3 months reccommended by GI. *ESRD 2/2 Polycystic Kidney dz w/PD: follows with Dr. Russ as outpatient, nephrology following. *Anemia, chronic: -stable, anaresp prn per Nephrology *DM: glucose stable, on ssi insulin *COPD (not on home O2, but uses husbands from time to time especially when she has a cold): -CXR mild left base parenchymal density likely atelectasis -back on room air now *Anxiety/depression -stable *HTN/HLD -stable bp *GERD: -on ppi *Hypomag: improved *Burning Urine/ UTI -on IV cefepime, despite this pts symptoms are worsening, GPC involved? MDRO? await cultures, check to see if local skin infection is present. -cystoscopy should help delineate cause. -topical clotrimazole for now - *constipation -no obstruction/no significant stool burden noted on X ray Medical - PN: Qual - Stroke Symptom Onset Unknown: No - VTE Deep Vein Thrombosis/Pulmonary Embolism Present on Admission: No
--- NOTE | 2018-10-08 09:12 | Consultation ---
DATE OF CONSULTATION: 10/08/2018 CHIEF COMPLAINT: Left hydronephrosis. HISTORY OF PRESENT ILLNESS: The patient is a 78-year-old lady who has been in the hospital because of left flank pain. This happened a week ago, and she was admitted to the hospital. She is on peritoneal dialysis secondary to end-stage renal disease, diabetes, COPD, depression, anxiety and chronic diarrhea. CT scan did show hydronephrosis on the left side. She does have stones on that side but also has polycystic kidney disease. She states recently the pain has improved. She did have some nausea, but we are concerned about this hydronephrosis, and I have been asked to evaluate her. She also has catrachito hematuria and burning with urination. Her cultures have been negative. PAST MEDICAL HISTORY: Significant for end-stage renal disease, diabetes, peritoneal dialysis, COPD and depression. PAST SURGICAL HISTORY: Hysterectomy, lower back surgery. FAMILY HISTORY: Rheumatoid arthritis, diabetes. SOCIAL HISTORY: Quit smoking about 10 years ago. Lives with her . CURRENT MEDICATIONS: As per nurse's notes. ALLERGIES: 1. HYDROCODONE. 2. AUGMENTIN. 3. CIPRO. 4. CLAVULANIC ACID. 5. TRAMADOL. 6. CODEINE. REVIEW OF SYSTEMS: CARDIAC: Denies any chest pain. RESPIRATORY: No wheezing, coughing, or asthma. PSYCHOLOGICAL: Slight depression. GASTROINTESTINAL: Diarrhea. GENITOURINARY: Positive leakage when she coughs or sneezes. She is on peritoneal dialysis. The rest of a 12-point review of systems is negative. PHYSICAL EXAMINATION: GENERAL: This is a pleasant lady in no apparent distress. HEENT: Atraumatic, normocephalic. Extraocular movements are intact. Pupils equal, reactive to light and accommodation. LUNGS: Clear to auscultation. HEART: Regular rhythm. ABDOMEN: Soft. Slight left flank pain. GENITOURINARY: Deferred. EXTREMITIES: Without clubbing, cyanosis or edema. NEUROLOGIC: Cranial nerves II-XII grossly intact. Strength is normal. IMPRESSION: The patient with left hydronephrosis. This may be a stone possibly or possibly a sloughed papilla from her polycystic disease. She is still having blood in her urine and presents now for evaluation. I have discussed this with the patient and feel that a retrograde pyelogram is indicated. We will take her to surgery today and perform this procedure. I have gone over the complications, including bleeding, infection, pain, no diagnosis, removal of a stone may be necessary. I have answered all of her questions. We will plan to follow up with her today at surgery. CARLOTA:randee Job ID: [id number] Doc ID: [id number] Carlos A Camargo MD
[2018-10-08] MEDS: FUROSEMIDE 40 MG TABLET PO SCH ×2 (09:18→21:21)
[2018-10-08] MEDS: CLOTRIMAZOLE CRM 1% 1 DOSE TUBE TOPICAL SCH ×3 (09:18→21:20)
[2018-10-08] MEDS: DOCUSATE SODIUM 100 MG CAPSULE PO SCH ×2 (09:18→21:18)
[2018-10-08] MEDS: LISINOPRIL 5 MG TABLET PO SCH ×2 (09:19→21:19)
[2018-10-08] MEDS: FLUTICASONE INH SCH ×2 (09:19→21:20)
[2018-10-08] MEDS: amLODIPine 10 MG TABLET PO SCH (09:19)
[2018-10-08] MEDS: SALMETEROL INH SCH ×2 (09:19→21:20)
[2018-10-08] MEDS: ONDANSETRON 4 MG ODT TABLET SL SCH (09:20)
--- NOTE | 2018-10-08 11:01 | Surgical Pathology Report ---
HISTOLOGY SPECIMEN MICROSCOPIC DIAGNOSIS SPECIMEN A - STOMACH, POLYPECTOMY: -- HYPERPLASTIC POLYP. SPECIMEN B - STOMACH, ANTRUM, BIOPSY: -- GASTRIC ANTRAL MUCOSA WITH MILD CHRONIC INFLAMMATION AND BACKGROUND FEATURES SUGGESTIVE OF REACTIVE GASTROPATHY. -- NO HELICOBACTER ORGANISMS IDENTIFIED ON ALCIAN YELLOW STAIN (ADEQUATE TECHNICAL CONTROL). SPECIMEN C - ESOPHAGUS, DISTAL, BIOPSY: -- SQUAMOUS MUCOSA WITH PATCHY SURFACE HYPERKERATOSIS. -- NO INTRAEPITHELIAL NEUTROPHILS OR EOSINOPHILS IDENTIFIED. (DMT:barry) CLINICAL HISTORY Nausea/emesis; abdominal pain; ulcer (?). PROCEDURAL IMPRESSION Polyp; duodenitis; gastritis; esophagitis; esophageal stricture; hiatal hernia. GROSS DESCRIPTION Specimen A: Received in formalin labeled A gastric polyps, are two sutton tissue fragments 0.2 and 0.3 cm. Totally submitted - one cassette. Specimen B: Received in formalin labeled B antral biopsy, are three sutton tissue fragments 0.2 to 0.5 cm. Totally submitted - one cassette. Specimen C: Received in formalin labeled C distal esophagus biopsy, are four pale sutton tissue fragments 0.2 to 0.4 cm. Totally submitted - one cassette. (STS:barry) Electronically Signed by: Levar French M.D.
[2018-10-08] MEDS ORDERED: METOPROLOL TARTRATE 5 MG/5 ML VIAL IV PRN ×2 (12:24→13:53)
[2018-10-08] MEDS ORDERED: NALOXONE HCL 0.4 MG/ML VIAL IV PRN ×2 (12:24→13:53)
[2018-10-08] MEDS ORDERED: ONDANSETRON 4 MG/2 ML VIAL IV PRN ×3 (12:24→13:53)
[2018-10-08] MEDS ORDERED: ePHEDrine 50 MG/ML AMPUL IV PRN ×2 (12:24→13:53)
[2018-10-08] MEDS ORDERED: diphenhydrAMINE 50 MG/ML VIAL IV PRN ×3 (12:24→13:53)
[2018-10-08] MEDS ORDERED: ATROPINE SULFATE 0.4 MG/ML VIAL IV PRN ×2 (12:24→13:53)
[2018-10-08] MEDS ORDERED: fentaNYL 100 MCG/2 ML VIAL IV PRN ×2 (12:24→13:53)
[2018-10-08] MEDS ORDERED: METHOCARBAMOL 1,000 MG/10 ML VIAL IV PRN ×2 (12:24→13:53)
[2018-10-08] MEDS ORDERED: BENZOCAINE/MENTHOL 1 LOZENGE PO PRN ×2 (12:24→13:53)
[2018-10-08] MEDS ORDERED: FLUMAZENIL 0.1 MG/ML ML IV PRN ×2 (12:24→13:53)
[2018-10-08] MEDS ORDERED: IPRATROPIUM/ALBUTEROL 3 ML AMPUL.NEB NEB PRN ×2 (12:24→13:53)
[2018-10-08] MEDS ORDERED: MEPERIDINE 25 MG/ML SYRINGE IV PRN ×2 (12:24→13:53)
[2018-10-08] MEDS ORDERED: LACTATED RINGERS 1,000 ML IV SCH ×2 (12:30→13:53)
[2018-10-08] MEDS ORDERED: IOPAMIDOL 100 ML BOTTLE IJ ONE ×2 (12:44→13:53)
--- NOTE | 2018-10-08 12:57 | Internal Med Progress Note ---
Medical - PN: Subj Patient information: Note initiated : 10/08/18 at 12:49 pm Service Date, if different from initiated Date: [] Patient: Ema Vang a 78 y/o F admitted on 09/29/18 for abdominal pain. Chief Complaint: [] Interval history: Ms. Vang is a 78 year old F with a history of end-stage renal disease on peritoneal dialysis, diabetes, COPD, depression anxiety, chronic diarrhea who presents with abdominal pain acutely. Patient reports that last night while starting to watching TV while she was sitting on the couch developed sudden severe pain in her abdominal lower quadrants bilaterally. Pain is described as a crampy pain she thought she had gas or had to go to the bathroom, rated at 10 out of 10. She took a pain medication which she said was oxycodone and was able to fall asleep but she was only asleep for a few hours. And still had pain. This morning she still had pain which is not rhythm improved and thus brought her in the ER. In the ED she did receive some pain medications by the time I saw her she said her pain was down to a 6 and appears comfortable in bed. She was feeling fine up to this point no recent illnesses no sick contacts no trauma or sudden twisting of her trunk. She did note that she did have some sharp flank pain on that right side for the past 3 weeks and did see her primary care provider for it. In the ED workup showed vital signs are essentially stable with a heart rate 92- 98 other parameters within normal limits. She did have a leukocytosis, again was afebrile. Lactic acid was within normal limits, urinalysis unremarkable for an infectious signs, but did have RBCs present. Noncontrast CT abdomen pelvis showed no acute pathology, no evidence of free intraperitoneal fluid intra-abdominal abscess or pneumoperitoneum or pneumatosis. Did show already known multiple large renal cysts. Dr. Alarcon saw the patient in the ED. Patient denies any epigastric pain. Lipase mildly elevated at 247. Concern for possible rupture of 1 of her renal cysts, antibiotic started given leukocytosis and concern for possibly infected cyst. She had a normal bowel movement last night. She did take a suppository last night after the pain started because that she previously stated felt like she needed to have a bowel movement but was not able to go. 09/30 No overnight events. Abdominal pain is less severe today. He has some nausea and retching. Tolerating clear liquid diet well. Did not have any reaction to Cipro, will switch back Rocephin to Cipro per nephro note. Getting PD right now. Gallbladder ultrasound unremarkable. 10/01 States his abdominal pain again especially lower quadrants, has not had a bowel movement since Monday. States she has burning when she urinates 10/02 Pain improving. She did have some nausea after medication this morning. No other new complaints other than wants an advance in her diet 10/03 Nausea vomitus morning. Abdominal pain, requiring decreased prn pain medications. no BM yet. Continues to have dysuria. 10/04 Slept well last night. Complains of dysuria. States no significant abdominal pain. Did not require any pain medication overnight shift. 10/05 Pt seen examined, no acute ovenright issues EGD findings reviewed, started on PPI as per GI reccs Pt still constipated, X ray does not show significant stool burden pt reports some nausea, but able to tolerate liquid diet today, will advance to full liquid patient has burning micturation, despite being on antibiotics, repeat UA suggestive of UTI, will repeat cultures, pt on cefepime, MDRO, not a clean sample? Will also see if local fungal infection is playing a role. pt may benefit from topical estrogen/antifungal cream. 10/06 Pt seen examined, nausea better, tolerated full liquid diet well, transition to regular consistency with renal diet still has burning urine, urine cx is neg, await final report start on topical antifungal cream for now, we do not have topical estrogen cream available in the hospital. 10/07 Pt seen examined, yesterday evening had catrachito hematuria, and continued burning during micturition. Microbiology is neg CT done shows left sided hydronephrosis, significant from July, and progressively getting worse since this Admit Urology consulted 10/08 Pt seen examined, some crapming pain in lower abdomen today, Urology eval appreciated, plan for cystoscopy today. 10/09 Review of Systems: denies headache/fever/chills/chest pain/cough/dyspnea/diarrhea. Otherwise see above. - Constitutional Vitals: Vital Signs Temp Pulse Resp BP Pulse Ox 98.1 F 72 16 126/61 92 10/08/18 11:36 10/08/18 11:36 10/08/18 11:36 10/08/18 11:36 10/08/18 11:36 Period Temp Pulse Resp BP Sys/[place] Pulse Ox Last 24 Hr 97.4 F-98.6 F 62-81 14-20 103-144/46-64 92-93 Intake and Output 10/07/18 10/08/18 10/08/18 21:59 05:59 13:59 Intake Total 480 200 Output Total 525 225 50 Balance -45 -25 -50 Weight 70.76 kg Intake & Output: Intake & Output 10/07/18 10/08/18 10/08/18 21:59 05:59 13:59 Intake Total 480 200 Output Total 525 225 50 Balance -45 -25 -50 Weight 70.76 kg Intake: Oral 480 200 Output: Void Amount 525 225 50 Other: Meal Lunch Percent of Meal Consumed 50% Feeding Ability Independent Urine Appearance Hematuria Hematuria Urine Color Dark Red Bright Red Bright Red Blood Tinged Blood Tinged Blood Tinged Urine Odor Normal # Voids 1 Exam: General: Alert, Awake, No acute Distress Eyes/N/T: EOMI, Head/Neck: neck supple, CV: regular, 2/6 SM Pulm: diminished, no wheezing Abd: soft, minimal TTP right quadrants, +BS x4, Ext: no clubbing/cyanosis, trace b/l LE edema Neuro: Alert, no focal deficits, moves all extremities, Skin: warm/dry Medical - PN: Obj Da - Labs CBC & Chem 7: 10/08/18 04:15 10/08/18 04:10 Labs: Abnormal Lab Results 10/08/18 10/08/18 10/08/18 11:37 04:15 04:10 WBC 12.6 H RBC 3.08 L Hgb 8.3 L Hct 26.2 L RDW 15.0 H [place] % (Auto) Gran # 8.3 H [place] # (Auto) 1.5 H POC PT 15.7 H POC INR 1.3 H Carbon Dioxide BUN 41 H Creatinine 7.4 H* Glucose 138 H Uric Acid Phosphorus 5.0 H Total Protein 5.5 L Albumin 2.9 L 10/07/18 10/07/18 10/06/18 03:50 03:50 04:30 WBC RBC 3.19 L Hgb 8.7 L Hct 27.3 L RDW 14.6 H [place] % (Auto) 14.3 H Gran # [place] # (Auto) 1.5 H POC PT POC INR Carbon Dioxide 31 H BUN 37 H 44 H Creatinine 7.2 H* 7.2 H* Glucose 131 H 144 H Uric Acid 8.1 H Phosphorus 4.7 H 5.5 H Total Protein Albumin 3.0 L 2.9 L 10/06/18 04:30 WBC RBC 3.17 L Hgb 8.6 L Hct 26.9 L RDW 14.8 H [place] % (Auto) 15.8 H Gran # [place] # (Auto) 1.5 H POC PT POC INR Carbon Dioxide BUN Creatinine Glucose Uric Acid Phosphorus Total Protein Albumin Meds: Medications Acetaminophen (Tylenol) 650 mg PO Q6HP PRN PRN Reason: PAIN/FEVER > 101 Last Admin: 10/07/18 22:04 Dose: 650 mg Documented by: Albuterol/Ipratropium (Duoneb) 3 ml NEB ONCE PRN PRN Reason: Wheezing Stop: 10/08/18 14:24 Amlodipine Besylate (Norvasc) 10 mg PO DAILY [facility] Last Admin: 10/08/18 09:19 Dose: Not Given Documented by: Atorvastatin Calcium (Lipitor) 20 mg PO [facility] Last Admin: 10/07/18 20:12 Dose: 20 mg Documented by: Atropine Sulfate (Atropine Sulfate) 0.4 mg IV ONCE PRN PRN Reason: Bradycardia Stop: 10/08/18 14:24 Bisacodyl (Dulcolax) 10 mg TX Q2-3DAYS PRN PRN Reason: Constipation Carvedilol (Coreg) 25 mg PO BIDCC [facility] Last Admin: 10/08/18 07:29 Dose: Not Given Documented by: Cefepime HCl (Maxipime) 1 gm IV Q48H [facility] Last Admin: 10/07/18 09:57 Dose: 1 gm Documented by: Cinacalcet (Sensipar) 60 mg PO QAC [facility] Last Admin: 10/08/18 07:29 Dose: Not Given Documented by: Clotrimazole (Mycelex Crm 1%) 1 dose TOPICAL BID [facility] Last Admin: 10/08/18 09:18 Dose: 1 dose Documented by: Diagnostic Test (Pha) (Accu-Chek) 1 each FS ACHS [facility] Last Admin: 10/08/18 11:24 Dose: 1 each Documented by: Diphenhydramine HCl (Benadryl) 25 mg IV Q4-6HP PRN PRN Reason: Nausea Diphenhydramine HCl (Benadryl) 25 mg IV ONCE PRN PRN Reason: ITCH Stop: 10/08/18 14:25 Docusate Sodium (Colace) 100 mg PO BID [facility] Last Admin: 10/08/18 09:18 Dose: Not Given Documented by: Ephedrine Sulfate (Akovaz) 0 mg IV Q30M PRN PRN Reason: Hypotension Stop: 10/08/18 14:24 Fentanyl (Sublimaze) 25 mcg IV Q2M PRN PRN Reason: Pain Stop: 10/08/18 14:25 Flumazenil (Romazicon) 0.1 mg IV Q2MIN PRN PRN Reason: BENZODIAZEPINE REVERSAL Stop: 10/08/18 14:25 Furosemide (Lasix) 120 mg PO BID [facility] Last Admin: 10/08/18 09:18 Dose: Not Given Documented by: Lactated Ringer's (Lactated Ringers) 1,000 mls @ 20 mls/hr IV .Q24H [facility] Stop: 10/08/18 14:25 Insulin Human Lispro (Humalog) 0 unit SQ ACHS [facility]; Protocol Last Admin: 10/08/18 11:24 Dose: Not Given Documented by: Lidocaine (Lidoderm) 1 patch TOPICAL PRN PRN PRN Reason: Pain Lisinopril (Zestril) 5 mg PO BID [facility] Last Admin: 10/08/18 09:19 Dose: Not Given Documented by: Loperamide HCl (Imodium) 2 mg PO PRN PRN PRN Reason: Diarrhea Lorazepam (Ativan) 0.5 mg IV Q8HP PRN PRN Reason: Anxiety Last Admin: 10/07/18 22:05 Dose: 0.5 mg Documented by: Meperidine HCl (Demerol) 12.5 mg IV Q5M PRN PRN Reason: Shivering Stop: 10/08/18 14:25 Methocarbamol (Robaxin) 750 mg IV ONCE PRN PRN Reason: Muscle Spasm Stop: 10/08/18 14:25 Metoprolol Tartrate (Lopressor) 2.5 mg IV Q5MIN PRN PRN Reason: Tachyarrhythmias Stop: 10/08/18 14:25 Naloxone HCl (Narcan) 0.1 mg IV Q2MIN PRN PRN Reason: Opiate Reversal Stop: 10/08/18 14:25 Ondansetron HCl (Zofran) 4 mg IV Q6HP PRN PRN Reason: Nausea And Vomiting Last Admin: 10/03/18 05:55 Dose: 4 mg Documented by: Ondansetron HCl (Zofran Odt) 4 mg SL DAILY [facility] Last Admin: 10/08/18 09:20 Dose: Not Given Documented by: Ondansetron HCl (Zofran) 4 mg IV ONCE PRN PRN Reason: Nausea And Vomiting Stop: 10/08/18 14:25 Pantoprazole Sodium (Protonix) 40 mg PO QAMAC [facility] Last Admin: 10/08/18 07:28 Dose: Not Given Documented by: Fluticasone/Salmeterol Hfa 230/21 Mcg Inhaler 1 dose INH BID [facility] Last Admin: 10/08/18 09:19 Dose: Not Given Documented by: Prochlorperazine (Compazine) 5 mg IV Q4HP PRN PRN Reason: Nausea And Vomiting Last Admin: 10/04/18 07:00 Dose: 5 mg Documented by: Sevelamer Carbonate (Renvela) 1,600 mg PO TIDCC [facility] Last Admin: 10/08/18 11:52 Dose: Not Given Documented by: Sodium Chloride (Saline Flush) 10 ml IV Q8 [facility] Last Admin: 10/08/18 04:01 Dose: 10 ml Documented by: Throat Lozenges (Cepacol) 1 lozenge PO PRN PRN PRN Reason: Sore Throat Stop: 10/08/18 14:24 Trazodone HCl (Desyrel) 50 mg PO QHS [facility] Last Admin: 10/07/18 20:12 Dose: 50 mg Documented by: Medical - PN: A/P - Time Spent With Patient Total time spent is greater than 50% in coordination of care (as documented) at patient's floor/unit and/or counseling patient: - Narrative A/P Narrative: A: *Acute right side abd pain (sharp initially now mild and achy): ?rupture/hemorrhage of a renal cyst vs passing of kidney stone vs less likely pancreatitis. sounds like she is also been having some referred pain likely from polycystic kidneys -lipase mildy elevated but pain not typical of pancreatitis, noncontrast CT no obvious cause -GB u/s unremarkable on admit except thickening, repeat with sludge but no thickening. -peritoneal fluid not infected -f/u CT a/p and pelvic u/s unremarkable -had unremarkable EGD/colonoscopy last april, repeat EGD done on 10/04 shows significant duodenal inflammation -CT done 10/06 shows left hydronephrosis -Improving *Dysuria w/hematuria: s/p cystoscopy/pyelogram with sloughed papilla noted likely source of hematuria and pain and stent placed (10/08) -UA unremarkable *Left hydronephrosis, with hydroureter (likely etiology of lower abdominal cramping pain on presentation and hematuria): no stone -This is a new finding from Jul 2018, and getting worse compared to CT done during this Visit *Leukocytosis: reactive vs infectious. 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 Russ *Anemia, chronic: *DM: *COPD (not on home O2, but uses husbands from time to time especially when she has a cold): -CXR mild left base parenchymal density likely atelectasis -back on room air *Anxiety/depression *HTN/HLD *GERD: *Hypomag: improved * P: -Cystoscopy today -advance diet as tolerated -Nephrology following, PD and aranesp prn -cont cefepime for now -prn electrolyte replacement -topical clotrimazole for now -IS -home O2 eval prior to d/c -cont PPI, repeat EGD in 3-months -ppx: heparin/pepcid Medical - PN: Qual - Stroke Symptom Onset Unknown: No - VTE Deep Vein Thrombosis/Pulmonary Embolism Present on Admission: No
--- NOTE | 2018-10-08 12:58 | Brief Operative Note ---
Date of procedure: 10/08/18 Pre-op diagnosis: left flank pain Post-op diagnosis: same Procedure: left rgpg, ureteroscopy, stent Grafts/Implants: Yes (stent) Anesthesia: GLMA Findings: see note Complications: none Surgeon: Carlos A Camargo Specimens Removed/Pathology: other (bladde biopsy, ureteral mass)
--- NOTE | 2018-10-08 13:01 | Discharge Summary ---
Medical - DS: Prov Patient information: Note initiated : 10/08/18 at 12:58 pm Service Date, if different from initiated Date: [] Patient: Ema Vang 78 y/o F admitted on 09/29/18 for abdominal pain. Chief Complaint: [] Date of admission: 09/29/18 15:00 Primary care physician: Sky Ceja Consults: 09/29/18 10:46 Consult to Physician [CONS] Stat Comment: Consulting Provider: Kavon Gorman Reason For Exam: Physician to Consult 09/29/18 12:30 Consult to Physician [CONS] Stat Comment: Consulting Provider: Paulo Danielle Reason For Exam: Physician to Consult 10/03/18 09:50 Consult to Physician [CONS] Routine Comment: Consulting Provider: Florentin Harden Reason For Exam: Physician to Consult 10/07/18 08:04 Consult to Physician [CONS] Routine Comment: Consulting Provider: Carlos A Camargo Reason For Exam: Physician to Consult Medical - DS: Meds - Discharge Medications Active and Home Medications: Home Medications carvedilol 25 mg tablet 25 mg PO BID tab 01/29/15 [History Confirmed 09/29/18 Last Taken 07/29/18] fluticasone 250 mcg-salmeterol 50 mcg/dose blistr powdr for inhalation 1 puff INHALATION BID #1 each 08/28/15 [Rx Confirmed 09/29/18 Last Taken Unknown] gentamicin 0.1 % topical cream 1 applic TOPICAL QDAY #30 g 10/26/17 [Rx Confirmed 09/29/18 Last Taken 07/30/18] sevelamer carbonate 800 mg tablet 1,600 mg PO TID 90 Days #540 tab 10/30/17 [Rx Confirmed 09/29/18 Last Taken 07/30/18] B complex 11-folic acid 1 mg-C 100 mg-biotin 300 mcg-zinc 50 mg tablet 1 tab PO QDAY #90 tab 05/30/18 [Rx Confirmed 09/30/18 Last Taken 07/29/18] trazodone 50 mg tablet 50 mg PO QHS #90 tab 07/09/18 [Rx Confirmed 09/29/18 Last Taken 07/29/18] Cinacalcet [Sensipar] 60 mg PO DAILY 07/30/18 [History Confirmed 09/29/18 Last Taken 07/30/18] Furosemide [Lasix] 40 mg PO DAILY 07/30/18 [History Confirmed 09/30/18 Last Taken 07/29/18] Lidocaine 1 patch TOPICAL PRN PRN 07/30/18 [History Confirmed 09/29/18 Last Taken Unknown] Lisinopril [Zestril] 1 tab PO BID 07/30/18 [History Confirmed 09/29/18 Last Taken 07/29/18] Sensipar 30 mg PO HS 07/30/18 [History Confirmed 09/29/18 Last Taken 07/29/18] Zofran 8 mg PO Q8HP PRN 07/30/18 [History Confirmed 09/29/18 Last Taken 07/29/18] Loperamide [Imodium] 2 mg PO PRN PRN #30 cap 08/02/18 [Rx Confirmed 09/29/18 Last Taken Unknown] Ondansetron [Zofran ODT] 4 mg SL DAILY #30 tab 08/02/18 [Rx Confirmed 09/29/18 Last Taken Unknown] atorvastatin 20 mg tablet 20 mg PO QDAY #90 tab 08/27/18 [Rx Confirmed 09/29/18 Last Taken Unknown] amlodipine 5 mg tablet 10 mg PO QDAY #180 tab 09/07/18 [Rx Confirmed 09/29/18 Last Taken Unknown] furosemide 80 mg tablet 120 mg PO BID #270 tab 09/27/18 [Rx Confirmed 09/29/18 Last Taken Unknown] Medical - DS: Hosp Hospital course: Ms. Vang is a 78 year old F with a history of end-stage renal disease on peritoneal dialysis, diabetes, COPD, depression anxiety, chronic diarrhea who presents with abdominal pain acutely. Patient reports that last night while starting to watching TV while she was sitting on the couch developed sudden severe pain in her abdominal lower quadrants bilaterally. Pain is described as a crampy pain she thought she had gas or had to go to the bathroom, rated at 10 out of 10. She took a pain medication which she said was oxycodone and was able to fall asleep but she was only asleep for a few hours. And still had pain. This morning she still had pain which is not rhythm improved and thus brought her in the ER. In the ED she did receive some pain medications by the time I saw her she said her pain was down to a 6 and appears comfortable in bed. She was feeling fine up to this point no recent illnesses no sick contacts no trauma or sudden twisting of her trunk. She did note that she did have some sharp flank pain on that right side for the past 3 weeks and did see her primary care provider for it. In the ED workup showed vital signs are essentially stable with a heart rate 92- 98 other parameters within normal limits. She did have a leukocytosis, again was afebrile. Lactic acid was within normal limits, urinalysis unremarkable for an infectious signs, but did have RBCs present. Noncontrast CT abdomen pelvis showed no acute pathology, no evidence of free intraperitoneal fluid intra-abdominal abscess or pneumoperitoneum or pneumatosis. Did show already known multiple large renal cysts. Dr. Alarcon saw the patient in the ED. Patient denies any epigastric pain. Lipase mildly elevated at 247. Concern for possible rupture of 1 of her renal cysts, antibiotic started given leukocytosis and concern for possibly infected cyst. She had a normal bowel movement last night. She did take a suppository last night after the pain started because that she previously stated felt like she needed to have a bowel movement but was not able to go. 09/30 No overnight events. Abdominal pain is less severe today. He has some nausea and retching. Tolerating clear liquid diet well. Did not have any reaction to Cipro, will switch back Rocephin to Cipro per nephro note. Getting PD right now. Gallbladder ultrasound unremarkable. 10/01 States his abdominal pain again especially lower quadrants, has not had a bowel movement since Monday. States she has burning when she urinates 10/02 Pain improving. She did have some nausea after medication this morning. No other new complaints other than wants an advance in her diet 10/03 Nausea vomitus morning. Abdominal pain, requiring decreased prn pain medications. no BM yet. Continues to have dysuria. 10/04 Slept well last night. Complains of dysuria. States no significant abdominal pain. Did not require any pain medication overnight shift. 10/05 Pt seen examined, no acute ovenright issues EGD findings reviewed, started on PPI as per GI reccs Pt still constipated, X ray does not show significant stool burden pt reports some nausea, but able to tolerate liquid diet today, will advance to full liquid patient has burning micturation, despite being on antibiotics, repeat UA suggestive of UTI, will repeat cultures, pt on cefepime, MDRO, not a clean sample? Will also see if local fungal infection is playing a role. pt may benefit from topical estrogen/antifungal cream. 10/06 Pt seen examined, nausea better, tolerated full liquid diet well, transition to regular consistency with renal diet still has burning urine, urine cx is neg, await final report start on topical antifungal cream for now, we do not have topical estrogen cream available in the hospital. 10/07 Pt seen examined, yesterday evening had catrachito hematuria, and continued burning during micturition. Microbiology is neg CT done shows left sided hydronephrosis, significant from July, and progressively getting worse since this Admit Urology consulted 10/08 Pt seen examined, some crapming pain in lower abdomen today, Urology eval appreciated, plan for cystoscopy today. 10/09 Discharge diagnosis: No pain left hydro-nephrosis hydroureter dysuria duodenitis Secondary discharge diagnosis: COPD hypoxia end-stage renal disease diabetes anxiety depression hypertension GERD - Time Spent with Patient Total time spent providing and/or coordinating discharge services: Greater than 30 minutes Medical - DS: Exam - Constitutional Vitals: Vital Signs Temp Pulse Resp BP BP BP Pulse Ox 10/08/18 11:36 98.1 F 72 16 126/61 92 10/08/18 07:47 81 16 93 10/08/18 06:50 97.4 F 81 14 138/54 93 10/08/18 04:00 98 F 62 18 103/46 92 10/07/18 23:06 98.6 F 68 18 104/52 93 10/07/18 19:38 98.2 F 144/64 10/07/18 18:46 98.2 F 70 20 144/64 92 10/07/18 15:15 98.1 F 74 20 135/61 92 Intake and Output 10/07/18 10/08/18 10/08/18 21:59 05:59 13:59 Intake Total 480 200 Output Total 525 225 50 Balance -45 -25 -50 Intake: Oral 480 200 Output: Void Amount 525 225 50 Other: Meal Lunch Percent of Meal Consumed 50% Feeding Ability Independent Urine Appearance Hematuria Hematuria Urine Color Dark Red Bright Red Bright Red Blood Tinged Blood Tinged Blood Tinged Urine Odor Normal # Voids 1 Weight 70.76 kg Medical - DS: Data Labs on day of discharge: Labs from last 24 hours 10/08/18 10/08/18 10/08/18 11:37 04:15 04:10 WBC 12.6 H RBC 3.08 L Hgb 8.3 L Hct 26.2 L MCV 85.0 MCH 27.0 MCHC 31.8 RDW 15.0 H Plt Count 305 MPV 7.8 Gran % 65.8 Lymph % (Auto) 19.4 [place] % (Auto) 11.7 Eos % (Auto) 2.7 Baso % (Auto) 0.4 Gran # 8.3 H Lymph # (Auto) 2.4 [place] # (Auto) 1.5 H Eos # (Auto) 0.3 Baso # (Auto) 0 POC PT 15.7 H POC INR 1.3 H Sodium 140 Potassium 3.6 Chloride 97 Carbon Dioxide 29 Anion Gap 14.0 BUN 41 H Creatinine 7.4 H* GFR Calculation 5 Glucose 138 H Uric Acid 8.0 Calcium 9.0 Phosphorus 5.0 H Magnesium 1.6 Total Bilirubin 0.2 Direct Bilirubin < 0.2 GGT 16 AST 7 ALT < 5 Alkaline Phosphatase 109 Lactate Dehydrogenase 187 Total Protein 5.5 L Albumin 2.9 L Globulin 2.6 Albumin/Globulin Ratio 1.1 Triglycerides 141 Medical - DS: A/P - Patient/Caregiver Discharge Instructions Activity: increase activity as tolerated Diet: Renal/Consistent Carbs - Follow up Plan Follow up with: Fany Russ MD [Physician] - Sky Ceja MD [Primary Care Provider] - 10/19/18 10:45 am Florentin Harden MD [Physician] - Disposition: Home, Self-Care Prognosis: Fair Medical - DS: Qual - VTE Deep Vein Thrombosis/Pulmonary Embolism Present on Admission: No
--- NOTE | 2018-10-08 13:16 | Operative Note ---
DATE OF OPERATION: 10/08/2018 PREOPERATIVE DIAGNOSIS: Left ureteral obstruction. POSTOPERATIVE DIAGNOSIS: Left ureteral obstruction. PROCEDURE: Cystoscopy, retrograde pyelogram, ureteroscopy, removal of clot, bladder biopsy, and stent placement. SURGEON: Carlos A Camargo M.D. INDICATION: The patient is a 78-year-old lady who has a history of polycystic kidney disease. She was admitted to the hospital because of left flank pain. CT scan did show worsening hydronephrosis, and I was asked to evaluate her. She presents now for diagnosis. PROCEDURE: The patient was identified and consent was signed. She was given general anesthesia, placed in lithotomy position, prepped and draped in a standard fashion. Cystourethroscopy showed normal-appearing urethra. There was edema around the left orifice and a blood clot sitting in the orifice itself. Cystoscopy was performed. There was a clot in the left ureteral orifice. Retrograde pyelogram was obtained which showed multiple clots and filling defects in the lower end of the ureter. We were then able to pass the semi-rigid ureteroscope, able to advance the wire up into the kidney and then did ureteroscopy. The distal ureter was full of blood and what appeared to be a sloughed papilla. These were removed with the basket. We attempted to remove more with the biopsy forceps but were unable to. A biopsy was taken of the bladder, the edema and a stent was then placed. A 6 x 24 stent was placed using the Seldinger technique which showed a good curl in the kidney and the bladder. Her bladder was drained. The string was left attached. She was awoken and taken to the recovery room in stable condition. CARLOTA:randee Job ID: [id number] Doc ID: [id number] Carlos A Camargo MD
[2018-10-08] MEDS ORDERED: PROCHLORPERAZINE 10 MG/2 ML VIAL IV PRN (13:53)
[2018-10-08] MEDS ORDERED: BISACODYL 10 MG SUPP.RECT PR PRN (13:53)
[2018-10-08] MEDS ORDERED: MAGNESIUM SULFATE 8.12 MEQ/2 ML VIAL IV ONE (13:53)
[2018-10-08] MEDS ORDERED: LIDOCAINE PATCH TOPICAL PRN (13:53)
[2018-10-08] MEDS ORDERED: LOPERAMIDE 2 MG CAPSULE PO PRN (13:53)
[2018-10-08] MEDS: ACETAMINOPHEN 325 MG TABLET PO PRN (21:19)
[2018-10-08] MEDS: traZODone HCL 50 MG TABLET PO SCH (21:21)
[2018-10-08] MEDS: ATORVASTATIN 20 MG TABLET PO SCH (21:21)
[2018-10-08] MEDS: LORazepam 2 MG/ML VIAL IV PRN (21:30)
[2018-10-09] MEDS: 0.9 % SODIUM CHLORIDE 10 ML SYRINGE IV SCH ×3 (04:45→21:22)
[2018-10-09 05:38] LABS: Basophils # (Auto) 0 K/mcL (0.0-0.3); Basophils % (Auto) 0.2 % (0.0-2.0); Eosinophils # (Auto) 0 K/mcL (0.0-0.7); Eosinophils % (Auto) 0 % (0.0-7.0); Granulocytes % (Auto) 83.9 % (38.0-78.0); Lymphocytes # (Auto) 1.2 K/mcL (1.5-4.8); Lymphocytes % (Auto) 10.2 % (15.5-49.0); Mean Cell Volume 85.4 fL (80.0-100.0); Mean Corpuscular HGB Conc 31.8 g/dL (31.0-36.0); Monocytes # (Auto) 0.7 K/mcL (0.1-0.9); Monocytes % (Auto) 5.7 % (1.0-12.0); Platelet Count 324 K/mcL (140-440); RBC 3.27 M/mcL (4.00-5.20); Red Cell Distribution Width 14.7 % (11.5-14.5)
[2018-10-09 06:22] LABS: ALT/SGPT < 5 U/l (0-40); Alkaline Phosphatase 125 U/L (39-117); Bilirubin,Direct < 0.2 mg/dL (0.0-0.3); Blood Urea Nitrogen 47 mg/dl (8-23); Gamma Glutamyl Transpeptidase 18 U/L (5-36); Uric Acid 7.8 mg/dL (2.5-8.0)
[2018-10-09] MEDS: INSULIN LISPRO 1 UNIT/0.01 ML UNIT SQ SCH ×4 (07:20→21:22)
[2018-10-09] MEDS: PANTOPRAZOLE 40 MG PACKET PO SCH (07:25)
--- NOTE | 2018-10-09 07:45 | Internal Med Progress Note ---
Medical - PN: Subj Patient information: Note initiated : 10/09/18 at 7:39 am Service Date, if different from initiated Date: [] Patient: Ema Vang a 78 y/o F admitted on 09/29/18 for abdominal pain. Chief Complaint: [] Interval history: Ms. Vang is a 78 year old F with a history of end-stage renal disease on peritoneal dialysis, diabetes, COPD, depression anxiety, chronic diarrhea who presents with abdominal pain acutely. Patient reports that last night while starting to watching TV while she was sitting on the couch developed sudden severe pain in her abdominal lower quadrants bilaterally. Pain is described as a crampy pain she thought she had gas or had to go to the bathroom, rated at 10 out of 10. She took a pain medication which she said was oxycodone and was able to fall asleep but she was only asleep for a few hours. And still had pain. This morning she still had pain which is not rhythm improved and thus brought her in the ER. In the ED she did receive some pain medications by the time I saw her she said her pain was down to a 6 and appears comfortable in bed. She was feeling fine up to this point no recent illnesses no sick contacts no trauma or sudden twisting of her trunk. She did note that she did have some sharp flank pain on that right side for the past 3 weeks and did see her primary care provider for it. In the ED workup showed vital signs are essentially stable with a heart rate 92- 98 other parameters within normal limits. She did have a leukocytosis, again was afebrile. Lactic acid was within normal limits, urinalysis unremarkable for an infectious signs, but did have RBCs present. Noncontrast CT abdomen pelvis showed no acute pathology, no evidence of free intraperitoneal fluid intra-abdominal abscess or pneumoperitoneum or pneumatosis. Did show already known multiple large renal cysts. Dr. Alarcon saw the patient in the ED. Patient denies any epigastric pain. Lipase mildly elevated at 247. Concern for possible rupture of 1 of her renal cysts, antibiotic started given leukocytosis and concern for possibly infected cyst. She had a normal bowel movement last night. She did take a suppository last night after the pain started because that she previously stated felt like she needed to have a bowel movement but was not able to go. 09/30 No overnight events. Abdominal pain is less severe today. He has some nausea and retching. Tolerating clear liquid diet well. Did not have any reaction to Cipro, will switch back Rocephin to Cipro per nephro note. Getting PD right now. Gallbladder ultrasound unremarkable. 10/01 States his abdominal pain again especially lower quadrants, has not had a bowel movement since Monday. States she has burning when she urinates 10/02 Pain improving. She did have some nausea after medication this morning. No other new complaints other than wants an advance in her diet 10/03 Nausea vomitus morning. Abdominal pain, requiring decreased prn pain medications. no BM yet. Continues to have dysuria. 10/04 Slept well last night. Complains of dysuria. States no significant abdominal pain. Did not require any pain medication overnight shift. 10/05 Pt seen examined, no acute ovenright issues EGD findings reviewed, started on PPI as per GI reccs Pt still constipated, X ray does not show significant stool burden pt reports some nausea, but able to tolerate liquid diet today, will advance to full liquid patient has burning micturation, despite being on antibiotics, repeat UA suggestive of UTI, will repeat cultures, pt on cefepime, MDRO, not a clean sample? Will also see if local fungal infection is playing a role. pt may benefit from topical estrogen/antifungal cream. 10/06 Pt seen examined, nausea better, tolerated full liquid diet well, transition to regular consistency with renal diet still has burning urine, urine cx is neg, await final report start on topical antifungal cream for now, we do not have topical estrogen cream available in the hospital. 10/07 Pt seen examined, yesterday evening had catrachito hematuria, and continued burning during micturition. Microbiology is neg CT done shows left sided hydronephrosis, significant from July, and progressively getting worse since this Admit Urology consulted 10/08 Pt seen examined, some crapming pain in lower abdomen today, Urology eval appreciated, plan for cystoscopy today. 10/09 Had a cystoscopy in pyelogram yesterday by Dr. Camargo showing multiple clots and what appeared to be a sloughed papilla in that left ureter. A stent was placed. Uneventful night. Has better appetite and tolerating solid food. No nausea vomiting abdominal pain, does report hematuria. Review of Systems: denies headache/fever/chills/chest pain/cough/dyspnea/diarrhea. Otherwise see above. - Constitutional Vitals: Vital Signs Temp Pulse Resp BP Pulse Ox 98.1 F 81 20 175/75 94 10/09/18 04:22 10/09/18 04:22 10/09/18 04:22 10/09/18 04:22 10/09/18 04:22 Period Temp Pulse Resp BP Sys/Hartman Pulse Ox Last 24 Hr 97.3 F-98.6 F 71-81 14-24 119-175/53-75 90-99 Intake and Output 10/08/18 10/09/18 10/09/18 21:59 05:59 13:59 Intake Total 360 100 240 Output Total 250 200 Balance 110 -100 240 Weight 72.121 kg Intake & Output: Intake & Output 10/08/18 10/09/18 10/09/18 21:59 05:59 13:59 Intake Total 360 100 240 Output Total 250 200 Balance 110 -100 240 Weight 72.121 kg Intake: Oral 360 100 240 Output: Void Amount 250 200 Other: Meal Dinner Percent of Meal Consumed 100% Feeding Ability Independent Urine Appearance Hematuria Small Blood Clots Urine Color Bright Red Dark Red Blood Tinged Blood Tinged Urine Odor Normal # Voids 1 # Bowel Movements 1 Exam: General: Alert, Awake, No acute Distress Eyes/N/T: EOMI, Head/Neck: neck supple, CV: regular, 2/6 SM Pulm: diminished, no wheezing Abd: soft, +BS x4, Ext: no clubbing/cyanosis, trace b/l LE edema Neuro: Alert, no focal deficits, moves all extremities, Skin: warm/dry Medical - PN: Obj Da - Labs CBC & Chem 7: 10/09/18 04:19 10/09/18 04:19 Labs: Abnormal Lab Results 10/09/18 10/09/18 10/08/18 04:19 04:19 11:37 WBC 11.4 H RBC 3.27 L Hgb 8.9 L Hct 27.9 L RDW 14.7 H Gran % 83.9 H Lymph % (Auto) 10.2 L Moffat % (Auto) Gran # 9.5 H Lymph # (Auto) 1.2 L Moffat # (Auto) POC PT 15.7 H POC INR 1.3 H BUN 47 H Creatinine 7.0 H* Glucose 272 H Phosphorus 4.6 H Alkaline Phosphatase 125 H Total Protein Albumin 3.0 L 10/08/18 10/08/18 10/07/18 04:15 04:10 03:50 WBC 12.6 H RBC 3.08 L Hgb 8.3 L Hct 26.2 L RDW 15.0 H Gran % Lymph % (Auto) Moffat % (Auto) Gran # 8.3 H Lymph # (Auto) Moffat # (Auto) 1.5 H POC PT POC INR BUN 41 H 37 H Creatinine 7.4 H* 7.2 H* Glucose 138 H 131 H Phosphorus 5.0 H 4.7 H Alkaline Phosphatase Total Protein 5.5 L Albumin 2.9 L 3.0 L 10/07/18 03:50 WBC RBC 3.19 L Hgb 8.7 L Hct 27.3 L RDW 14.6 H Gran % Lymph % (Auto) Moffat % (Auto) 14.3 H Gran # Lymph # (Auto) Moffat # (Auto) 1.5 H POC PT POC INR BUN Creatinine Glucose Phosphorus Alkaline Phosphatase Total Protein Albumin Meds: Medications Acetaminophen (Tylenol) 650 mg PO Q6HP PRN PRN Reason: PAIN/FEVER > 101 Last Admin: 10/08/18 21:19 Dose: 650 mg Documented by: Amlodipine Besylate (Norvasc) 10 mg PO DAILY [facility] Atorvastatin Calcium (Lipitor) 20 mg PO [facility] Last Admin: 10/08/18 21:21 Dose: 20 mg Documented by: Bisacodyl (Dulcolax) 10 mg IA Q2-3DAYS PRN PRN Reason: Constipation [facility] Last Admin: 10/08/18 16:46 Dose: 25 mg Documented by: Cefepime HCl (Maxipime) 1 gm IV Q48H [facility]) [facility] Clotrimazole (Mycelex Crm 1%) 1 dose TOPICAL BID [facility] Last Admin: 10/08/18 21:20 Dose: 1 dose Documented by: Diagnostic Test (Pha) (Accu-Chek) 1 each FS ACHS [facility] Last Admin: 10/09/18 07:18 Dose: 1 each Documented by: Diphenhydramine HCl (Benadryl) 25 mg IV Q4-6HP PRN PRN Reason: Nausea Docusate Sodium (Colace) 100 mg PO BID [facility] Last Admin: 10/08/18 21:18 Dose: Not Given Documented by: Furosemide (Lasix) 120 mg PO BID [facility] Last Admin: 10/08/18 21:21 Dose: 120 mg Documented by: Insulin Human Lispro (Humalog) 0 unit SQ ACHS [facility]; Protocol Last Admin: 10/09/18 07:20 Dose: 4 units Documented by: Lidocaine (Lidoderm) 1 patch TOPICAL PRN PRN PRN Reason: Pain Lisinopril (Zestril) 5 mg PO BID [facility] Last Admin: 10/08/18 21:19 Dose: Not Given Documented by: Loperamide HCl (Imodium) 2 mg PO PRN PRN PRN Reason: Diarrhea Lorazepam (Ativan) 0.5 mg IV Q8HP PRN PRN Reason: Anxiety Last Admin: 10/08/18 21:30 Dose: 0.5 mg Documented by: Ondansetron HCl (Zofran) 4 mg IV Q6HP PRN PRN Reason: Nausea And Vomiting Ondansetron HCl (Zofran Odt) 4 mg SL DAILY [facility] Pantoprazole Sodium (Protonix) 40 mg PO QAMAC [facility] Last Admin: 10/09/18 07:25 Dose: 40 mg Documented by: Fluticasone/Salmeterol Hfa 230/21 Mcg Inhaler 1 dose INH BID [facility] Last Admin: 10/08/18 21:20 Dose: Not Given Documented by: Prochlorperazine (Compazine) 5 mg IV Q4HP PRN PRN Reason: Nausea And Vomiting Sevelamer Carbonate (Renvela) 1,600 mg PO TIDCC [facility] Last Admin: 10/08/18 16:46 Dose: 1,600 mg Documented by: Sodium Chloride (Saline Flush) 10 ml IV Q8 [facility] Last Admin: 10/09/18 04:45 Dose: 10 ml Documented by: Trazodone HCl (Desyrel) 50 mg PO QHS [facility] Last Admin: 10/08/18 21:21 Dose: 50 mg Documented by: Medical - PN: A/P - Time Spent With Patient Total time spent is greater than 50% in coordination of care (as documented) at patient's floor/unit and/or counseling patient: - Narrative A/P Narrative: A: *Acute right side abd pain (sharp initially now mild and achy): ?rupture/hemorrhage of a renal cyst vs passing of kidney stone vs less likely pancreatitis. sounds like she is also been having some referred pain likely from polycystic kidneys -lipase mildy elevated but pain not typical of pancreatitis, noncontrast CT no obvious cause -GB u/s unremarkable on admit except thickening, repeat with sludge but no th ickening. -peritoneal fluid not infected -f/u CT a/p and pelvic u/s unremarkable -had unremarkable EGD/colonoscopy last april, repeat EGD done on 10/04 shows significant duodenal inflammation -CT done 10/06 shows left hydronephrosis -Improving *Dysuria w/hematuria: s/p cystoscopy/pyelogram with sloughed papilla noted likely source of hematuria and pain and stent placed (10/08) -UA unremarkable *Left hydronephrosis, with hydroureter (likely etiology of lower abdominal cramping pain on presentation and hematuria): -This is a new finding from Jul 2018, and getting worse compared to CT done during this Visit -s/p cystoscopy (10/08) which showed clots and sloughed papilla in left ureter. stent placed *Leukocytosis: reactive vs infectious. 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 Russ *Anemia, chronic: *DM: labile BG *COPD (not on home O2, but uses husbands from time to time especially when she has a cold): -CXR mild left base parenchymal density likely atelectasis -back on room air *Anxiety/depression *HTN/HLD *GERD: *Hypomag: improved * P: -Nephrology following, PD and aranesp prn -urology following - cefepime, d/c soon -prn electrolyte replacement -topical clotrimazole for now -IS -home O2 eval prior to d/c -cont PPI, repeat EGD in 3-months -ppx: heparin/pepcid d/c planning for AM Medical - PN: Qual - Stroke Symptom Onset Unknown: No - VTE Deep Vein Thrombosis/Pulmonary Embolism Present on Admission: No
[2018-10-09] MEDS: SEVELAMER 800 MG TABLET PO SCH ×3 (07:47→16:55)
[2018-10-09] MEDS: CARVEDILOL 12.5 MG TABLET PO SCH ×2 (07:47→16:55)
[2018-10-09] MEDS: CINACALCET 30 MG TABLET PO SCH (07:47)
--- NOTE | 2018-10-09 07:48 | Discharge Summary ---
Medical - DS: Prov Patient information: Note initiated : 10/09/18 at 7:45 am Service Date, if different from initiated Date: [] Patient: Ema Vang 78 y/o F admitted on 09/29/18 for abdominal pain. Chief Complaint: [] Date of admission: 09/29/18 15:00 Discharge date: 10/10/18 Primary care physician: Sky Ceja Consults: 09/29/18 10:46 Consult to Physician [CONS] Stat Comment: Consulting Provider: Kavon Gorman Reason For Exam: Physician to Consult 09/29/18 12:30 Consult to Physician [CONS] Stat Comment: Consulting Provider: Paulo Danielle Reason For Exam: Physician to Consult 10/03/18 09:50 Consult to Physician [CONS] Routine Comment: Consulting Provider: Florentin Harden Reason For Exam: Physician to Consult 10/07/18 08:04 Consult to Physician [CONS] Routine Comment: Consulting Provider: Carlos A Camargo Reason For Exam: Physician to Consult Medical - DS: Meds - Discharge Medications Active and Home Medications: Home Medications carvedilol 25 mg tablet 25 mg PO BID tab 01/29/15 [History Confirmed 09/29/18 Last Taken 07/29/18] fluticasone 250 mcg-salmeterol 50 mcg/dose blistr powdr for inhalation 1 puff INHALATION BID #1 each 08/28/15 [Rx Confirmed 09/29/18 Last Taken Unknown] gentamicin 0.1 % topical cream 1 applic TOPICAL QDAY #30 g 10/26/17 [Rx Confirmed 09/29/18 Last Taken 07/30/18] sevelamer carbonate 800 mg tablet 1,600 mg PO TID 90 Days #540 tab 10/30/17 [Rx Confirmed 09/29/18 Last Taken 07/30/18] B complex 11-folic acid 1 mg-C 100 mg-biotin 300 mcg-zinc 50 mg tablet 1 tab PO QDAY #90 tab 05/30/18 [Rx Confirmed 09/30/18 Last Taken 07/29/18] trazodone 50 mg tablet 50 mg PO QHS #90 tab 07/09/18 [Rx Confirmed 09/29/18 Last Taken 07/29/18] Cinacalcet [Sensipar] 60 mg PO DAILY 07/30/18 [History Confirmed 09/29/18 Last Taken 07/30/18] Furosemide [Lasix] 40 mg PO DAILY 07/30/18 [History Confirmed 09/30/18 Last Taken 07/29/18] Lidocaine 1 patch TOPICAL PRN PRN 07/30/18 [History Confirmed 09/29/18 Last Taken Unknown] Lisinopril [Zestril] 1 tab PO BID 07/30/18 [History Confirmed 09/29/18 Last Taken 07/29/18] Sensipar 30 mg PO HS 07/30/18 [History Confirmed 09/29/18 Last Taken 07/29/18] Zofran 8 mg PO Q8HP PRN 07/30/18 [History Confirmed 09/29/18 Last Taken 07/29/18] Loperamide [Imodium] 2 mg PO PRN PRN #30 cap 08/02/18 [Rx Confirmed 09/29/18 Last Taken Unknown] Ondansetron [Zofran ODT] 4 mg SL DAILY #30 tab 08/02/18 [Rx Confirmed 09/29/18 Last Taken Unknown] atorvastatin 20 mg tablet 20 mg PO QDAY #90 tab 08/27/18 [Rx Confirmed 09/29/18 Last Taken Unknown] amlodipine 5 mg tablet 10 mg PO QDAY #180 tab 09/07/18 [Rx Confirmed 09/29/18 Last Taken Unknown] furosemide 80 mg tablet 120 mg PO BID #270 tab 09/27/18 [Rx Confirmed 09/29/18 Last Taken Unknown] Home Medications carvedilol 25 mg tablet 25 mg PO BID tab 01/29/15 [History Confirmed 09/29/18 Last Taken 07/29/18] fluticasone 250 mcg-salmeterol 50 mcg/dose blistr powdr for inhalation 1 puff INHALATION BID #1 each 08/28/15 [Rx Confirmed 09/29/18 Last Taken Unknown] gentamicin 0.1 % topical cream 1 applic TOPICAL QDAY #30 g 10/26/17 [Rx Confirmed 09/29/18 Last Taken 07/30/18] sevelamer carbonate 800 mg tablet 1,600 mg PO TID 90 Days #540 tab 10/30/17 [Rx Confirmed 09/29/18 Last Taken 07/30/18] B complex 11-folic acid 1 mg-C 100 mg-biotin 300 mcg-zinc 50 mg tablet 1 tab PO QDAY #90 tab 05/30/18 [Rx Confirmed 09/30/18 Last Taken 07/29/18] trazodone 50 mg tablet 50 mg PO QHS #90 tab 07/09/18 [Rx Confirmed 09/29/18 Last Taken 07/29/18] Cinacalcet [Sensipar] 60 mg PO DAILY 07/30/18 [History Confirmed 09/29/18 Last Taken 07/30/18] Furosemide [Lasix] 40 mg PO DAILY 07/30/18 [History Confirmed 09/30/18 Last Taken 07/29/18] Lidocaine 1 patch TOPICAL PRN PRN 07/30/18 [History Confirmed 09/29/18 Last Ashish en Unknown] Lisinopril [Zestril] 1 tab PO BID 07/30/18 [History Confirmed 09/29/18 Last Taken 07/29/18] Sensipar 30 mg PO HS 07/30/18 [History Confirmed 09/29/18 Last Taken 07/29/18] Zofran 8 mg PO Q8HP PRN 07/30/18 [History Confirmed 09/29/18 Last Taken 07/29/18] Loperamide [Imodium] 2 mg PO PRN PRN #30 cap 08/02/18 [Rx Confirmed 09/29/18 Last Taken Unknown] Ondansetron [Zofran ODT] 4 mg SL DAILY #30 tab 08/02/18 [Rx Confirmed 09/29/18 Last Taken Unknown] atorvastatin 20 mg tablet 20 mg PO QDAY #90 tab 08/27/18 [Rx Confirmed 09/29/18 Last Taken Unknown] amlodipine 5 mg tablet 10 mg PO QDAY #180 tab 09/07/18 [Rx Confirmed 09/29/18 Last Taken Unknown] furosemide 80 mg tablet 120 mg PO BID #270 tab 09/27/18 [Rx Confirmed 09/29/18 Last Taken Unknown] Medical - DS: Hosp Hospital course: Ms. Vang is a 78 year old F with a history of end-stage renal disease on peritoneal dialysis, diabetes, COPD, depression anxiety, chronic diarrhea who presents with abdominal pain acutely. Patient reports that last night while starting to watching TV while she was sitting on the couch developed sudden severe pain in her abdominal lower quadrants bilaterally. Pain is described as a crampy pain she thought she had gas or had to go to the bathroom, rated at 10 out of 10. She took a pain medication which she said was oxycodone and was able to fall asleep but she was only asleep for a few hours. And still had pain. This morning she still had pain which is not rhythm improved and thus brought her in the ER. In the ED she did receive some pain medications by the time I saw her she said her pain was down to a 6 and appears comfortable in bed. She was feeling fine up to this point no recent illnesses no sick contacts no trauma or sudden twisting of her trunk. She did note that she did have some sharp flank pain on that right side for the past 3 weeks and did see her primary care provider for it. In the ED workup showed vital signs are essentially stable with a heart rate 92- 98 other parameters within normal limits. She did have a leukocytosis, again was afebrile. Lactic acid was within normal limits, urinalysis unremarkable for an infectious signs, but did have RBCs present. Noncontrast CT abdomen pelvis showed no acute pathology, no evidence of free intraperitoneal fluid intra-abdominal abscess or pneumoperitoneum or pneumatosis. Did show already known multiple large renal cysts. Dr. Alarcon saw the patient in the ED. Patient denies any epigastric pain. Lipase mildly elevated at 247. Concern for possible rupture of 1 of her renal cysts, antibiotic started given leukocytosis and concern for possibly infected cyst. She had a normal bowel movement last night. She did take a suppository last night after the pain started because that she previously stated felt like she needed to have a bowel movement but was not able to go. 09/30 No overnight events. Abdominal pain is less severe today. He has some nausea and retching. Tolerating clear liquid diet well. Did not have any reaction to Cipro, will switch back Rocephin to Cipro per nephro note. Getting PD right now. Gallbladder ultrasound unremarkable. 10/01 States his abdominal pain again especially lower quadrants, has not had a bowel movement since Monday. States she has burning when she urinates 10/02 Pain improving. She did have some nausea after medication this morning. No other new complaints other than wants an advance in her diet 10/03 Nausea vomitus morning. Abdominal pain, requiring decreased prn pain medications. no BM yet. Continues to have dysuria. 10/04 Slept well last night. Complains of dysuria. States no significant abdominal pain. Did not require any pain medication overnight shift. 10/05 Pt seen examined, no acute ovenright issues EGD findings reviewed, started on PPI as per GI reccs Pt still constipated, X ray does not show significant stool burden pt reports some nausea, but able to tolerate liquid diet today, will advance to full liquid patient has burning micturation, despite being on antibiotics, repeat UA suggestive of UTI, will repeat cultures, pt on cefepime, MDRO, not a clean sample? Will also see if local fungal infection is playing a role. pt may benefit from topical estrogen/antifungal cream. 10/06 Pt seen examined, nausea better, tolerated full liquid diet well, transition to regular consistency with renal diet still has burning urine, urine cx is neg, await final report start on topical antifungal cream for now, we do not have topical estrogen cream available in the hospital. 10/07 Pt seen examined, yesterday evening had catrachito hematuria, and continued burning during micturition. Microbiology is neg CT done shows left sided hydronephrosis, significant from July, and progressively getting worse since this Admit Urology consulted 10/08 Pt seen examined, some crapming pain in lower abdomen today, Urology eval appreciated, plan for cystoscopy today. 10/09 Had a cystoscopy in pyelogram yesterday by Dr. Camargo showing multiple clots and what appeared to be a sloughed papilla in that left ureter. A stent was placed. Uneventful night. Has better appetite and tolerating solid food. No nausea vomiting abdominal pain, does report hematuria. 10/10 Biopsy showed noninvasive urothelial carcinoma. Dr. Camargo talk to the patient last night. Patient did well overnight. 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 Patient stable for discharge Discharge diagnosis: Dysuria with sloughed papilla and hematuria, abdominal pain with duodenitis Secondary discharge diagnosis: Left hydronephrosis incisional disease anemia diabetes COPD anxiety depression hypertension GERD - Time Spent with Patient Total time spent providing and/or coordinating discharge services: Greater than 30 minutes Medical - DS: Exam - Constitutional Vitals: Vital Signs Temp Pulse Resp BP BP BP Pulse Ox 10/09/18 04:22 98.1 F 81 20 175/75 94 10/08/18 23:00 98.4 F 77 20 142/61 92 10/08/18 19:46 98.6 F 119/57 10/08/18 19:40 98.6 F 71 24 H 119/57 91 10/08/18 15:53 97.3 F 78 16 155/64 92 10/08/18 14:38 73 141/62 93 10/08/18 14:23 74 138/56 90 10/08/18 14:08 75 137/59 90 10/08/18 13:53 76 153/65 90 10/08/18 13:45 71 16 92 10/08/18 13:13 98.0 F 72 16 154/54 96 10/08/18 13:08 72 15 155/59 98 10/08/18 13:03 72 14 156/53 99 10/08/18 12:58 97.6 F 72 14 160/55 98 10/08/18 11:36 98.1 F 72 16 126/61 92 10/08/18 07:47 81 16 93 Intake and Output 10/08/18 10/09/18 10/09/18 21:59 05:59 13:59 Intake Total 360 100 240 Output Total 250 200 Balance 110 -100 240 Intake: Oral 360 100 240 Output: Void Amount 250 200 Other: Meal Dinner Percent of Meal Consumed 100% Feeding Ability Independent Urine Appearance Hematuria Small Blood Clots Urine Color Bright Red Dark Red Blood Tinged Blood Tinged Urine Odor Normal # Voids 1 # Bowel Movements 1 Weight 72.121 kg Medical - DS: Data Labs on day of discharge: Labs from last 24 hours 10/09/18 10/09/18 10/08/18 04:19 04:19 11:37 WBC 11.4 H RBC 3.27 L Hgb 8.9 L Hct 27.9 L MCV 85.4 MCH 27.1 MCHC 31.8 RDW 14.7 H Plt Count 324 MPV 7.9 Gran % 83.9 H Lymph % (Auto) 10.2 L [place] % (Auto) 5.7 Eos % (Auto) 0 Baso % (Auto) 0.2 Gran # 9.5 H Lymph # (Auto) 1.2 L [place] # (Auto) 0.7 Eos # (Auto) 0 Baso # (Auto) 0 POC PT 15.7 H POC INR 1.3 H Sodium 137 Potassium 4.0 Chloride 97 Carbon Dioxide 28 Anion Gap 12.0 BUN 47 H Creatinine 7.0 H* GFR Calculation 5 Glucose 272 H Uric Acid 7.8 Calcium 9.8 Phosphorus 4.6 H Magnesium 1.7 Total Bilirubin 0.2 Direct Bilirubin < 0.2 GGT 18 AST 8 ALT < 5 Alkaline Phosphatase 125 H Lactate Dehydrogenase 224 Total Protein 6.0 Albumin 3.0 L Globulin 3.0 Albumin/Globulin Ratio 1.0 Triglycerides 65 Medical - DS: A/P - Patient/Caregiver Discharge Instructions Activity: increase activity as tolerated Diet: Renal/Consistent Carbs - Follow up Plan Follow up with: Fany Russ MD [Physician] - Florentin Harden MD [Physician] - Sky Ceja MD [Primary Care Provider] - 10/19/18 10:45 am Carlos A Camargo MD [Physician] - Disposition: Home, Self-Care Prognosis: Fair Rehab Potential: Fair Overall status at discharge: patient is progressing back to baseline Medical - DS: Qual - VTE Deep Vein Thrombosis/Pulmonary Embolism Present on Admission: No
--- NOTE | 2018-10-09 07:58 | Nephrology Progress Note ---
Subjective Patient information: Note initiated : 10/09/18 at 7:55 am Patient: Ema Vang 78 y/o F admitted on 09/29/18 for abdominal pain. Chief Complaint: Weakness Principal diagnosis: Abdominal pain Pertinent ROS: Left lower quadrant abdominal pain, improved Gross hematuria, persistent Dysuria Nausea, resolved No flank pain No diarrhea No edema Objective - Vital Signs Vital signs: Vital Signs Temp Pulse Resp BP BP BP Pulse Ox 10/09/18 07:54 97.4 F 79 20 154/68 95 10/09/18 04:22 98.1 F 81 20 175/75 94 10/08/18 23:00 98.4 F 77 20 142/61 92 10/08/18 19:46 98.6 F 119/57 10/08/18 19:40 98.6 F 71 24 H 119/57 91 10/08/18 15:53 97.3 F 78 16 155/64 92 10/08/18 14:38 73 141/62 93 10/08/18 14:23 74 138/56 90 10/08/18 14:08 75 137/59 90 10/08/18 13:53 76 153/65 90 10/08/18 13:45 71 16 92 10/08/18 13:13 98.0 F 72 16 154/54 96 10/08/18 13:08 72 15 155/59 98 10/08/18 13:03 72 14 156/53 99 10/08/18 12:58 97.6 F 72 14 160/55 98 10/08/18 11:36 98.1 F 72 16 126/61 92 Intake and Output 10/08/18 10/09/18 10/09/18 21:59 05:59 13:59 Intake Total 360 100 240 Output Total 250 200 Balance 110 -100 240 Intake: Oral 360 100 240 Output: Void Amount 250 200 Other: Meal Dinner Percent of Meal Consumed 100% Feeding Ability Independent Urine Appearance Hematuria Small Blood Clots Urine Color Bright Red Dark Red Blood Tinged Blood Tinged Urine Odor Normal # Voids 1 # Bowel Movements 1 Weight 159 lb Intake & Output: Intake & Output 10/08/18 10/09/18 10/09/18 21:59 05:59 13:59 Intake Total 360 100 240 Output Total 250 200 Balance 110 -100 240 Weight 159 lb Intake: Oral 360 100 240 Output: Void Amount 250 200 Other: Meal Dinner Percent of Meal Consumed 100% Feeding Ability Independent Urine Appearance Hematuria Small Blood Clots Urine Color Bright Red Dark Red Blood Tinged Blood Tinged Urine Odor Normal # Voids 1 # Bowel Movements 1 - General Appearance General appearance: appears started age, fatigue EENT: mucous membranes moist Neck: supple Respiratory: clear Cardiology: no edema Gastrointestinal: no tenderness Integumentary: no rash, warm and dry Neurologic: no focal deficit, alert and oriented x3 Musculoskeletal: no deformities Psychiatric: mood/affect appropriate, cooperative - Lab 10/09/18 04:19 10/09/18 04:19 Most recent lab results Calcium 9.8 mg/dl (8.6-10.4) 10/09/18 04:19 Phosphorus 4.6 mg/dL (2.7-4.5) H 10/09/18 04:19 Magnesium 1.7 mg/dL (1.6-2.5) 10/09/18 04:19 Assessment and Plan (1) ESRD on peritoneal dialysis Ema Vang is a 78-year-old female with end-stage renal disease on chronic peritoneal dialysis (followed by Dr. 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 She reported sudden onset abdominal pain (at 8:30PM last night), generalized, but mostly lower abdominal, constant not crampy, never resolved since started, associated with nausea and vomiting (not coffee ground or bloody), no diarrhea or constipation. Last BM yesterday light brown. PD fluid clear. No problems with PD dwell or drain. urine looked somewhat bloody but no dysuria. She has been on Prednisone taper off for arthritis. No other new medications. Renal cyst rupture/hemorrhage or nephrolithiasis considered due to sudden onset abdominal pain. Ciprofloxacin was given for suspected renal cyst infection due to leukocytosis, however this could also be due to Prednisone she was recently started. Acute pancreatitis suspected due to lipase elevation. Recent work up: EGD on 05/04/18: Schatzki's ring. Gastric polyp. Query celiac. Colonoscopy on 05/04/18: Colonic polyps. Query microscopic colitis. CT Abdomen and Pelvis on 07/30/18: Pneumoperitoneum. This is probably iatrogenic secondary to peritoneal dialysis catheter. Multiple large renal cysts consistent with polycystic kidney disease. No hydronephrosis . Mild diverticulosis. No evidence for diverticulitis. Extensive calcified atherosc lerotic disease. Work up: Labs on 09/29/18: PD Fluid cell count: Nucleated cells 16, 10% neutrophils Gram stain no polys, no organism Culture pending CT KUB on 09/29/18: History of polycystic kidney disease and renal failure. Extensive atherosclerotic disease. No abdominal aortic aneurysm. No acute or focal abnormality. Gall bladder US on 10/09/18: Negative examination for cholelithiasis. Trace pericholecystic fluid. No other abnormality. CT Abdomen and Pelvis with oral contrast on 10/01/18: Polycystic kidney disease. Patient is on peritoneal dialysis. There is intraperitoneal fluid which may be dialysate. No acute intra-abdominal abnormality. Transvaginal US on 10/01/18: Mild free pelvic fluid. Previous hysterectomy. Ovaries are not visualized Gall bladder US on 10/03/18: Mild biliary sludge in the dependent portion of the gallbladder. This is a new finding. No discrete calculi. No gallbladder wall thickening. There is minimal pericholecystic fluid which may be from peritoneal dialysis. Possible 10 mm pancreatic head mass. Further evaluation recommended. CT Abdomen and Pelvis without contrast on 10/06/18: Increased left hydronephrosis and hydroureter. This is slightly increased since 10/01/2018 and definitely increased since 07/30/2018. There is no obstructing calculus id entified. Clinical correlation for possible recently passed stone, sloughed papilla or blood clot, or tumor recommended. Follow-up noncontrast enhanced CT scan may be helpful. Contrast-enhanced CT scan or cystoscopy may be necessary. Density in the gallbladder consistent with cholelithiasis. Severe atherosclerotic disease. Probable significant stenosis in the left common iliac artery. Polycystic kidneys with renal failure. Hemodialysis shunt catheter is present. Progress: Left lower quadrant abdominal pain, gross hematuria and dysuri with left hydronephrosis and hydroureter without obstructing calculus on CT. Left ureteral obstruction due to blood clots s/p cystoscopy, retrograde pyelogram, ureteroscopy, removal of clot, bladder biopsy, and stent placement on 10/08/18. Plan: CCPD with 1.5/2.5%, total volume 7,200 ml, 4 exchanges of 1,800 ml, total time 9 hours. Status: Chronic Priority: Medium (2) Acute blood loss anemia Please see below Status: Acute Priority: High (3) Anemia due to end stage renal disease Acute blood loss anemia due to gross hematuria on chronic anemia due to ESRD. Treatment: Aranesp 40 mcg IV x 1 on 09/30/18 for Hb <10 Aranesp 100 mcg IV x 1 on 10/06/18 for Hb <10 Status: Chronic Priority: Medium (4) Secondary hyperparathyroidism of renal origin Sensipar 60 mg daily resumed due to hypercalcemia Status: Chronic Priority: Medium
[2018-10-09] MEDS: FUROSEMIDE 40 MG TABLET PO SCH ×2 (08:35→21:22)
[2018-10-09] MEDS: CLOTRIMAZOLE CRM 1% 1 DOSE TUBE TOPICAL SCH ×2 (08:36→21:22)
[2018-10-09] MEDS: DOCUSATE SODIUM 100 MG CAPSULE PO SCH ×2 (08:36→21:21)
[2018-10-09] MEDS: FLUTICASONE INH SCH ×2 (08:36→21:22)
[2018-10-09] MEDS: SALMETEROL INH SCH ×2 (08:36→21:22)
[2018-10-09] MEDS: amLODIPine 10 MG TABLET PO SCH (08:36)
[2018-10-09] MEDS: LISINOPRIL 5 MG TABLET PO SCH ×2 (08:36→21:22)
[2018-10-09] MEDS: ONDANSETRON 4 MG ODT TABLET SL SCH (08:37)
[2018-10-09] MEDS ORDERED: CEFEPIME 1 GM VIAL IV SCH (09:00)
[2018-10-09] MEDS ORDERED: MIDAZOLAM 2 MG/2 ML VIAL IV ONE (12:10)
[2018-10-09] MEDS ORDERED: DEXAMETHASONE 10 MG/ML VIAL IV ONE (12:10)
[2018-10-09] MEDS ORDERED: LIDOCAINE HCL/PF 100 MG/5 ML SYRINGE IV ONE (12:10)
[2018-10-09] MEDS ORDERED: fentaNYL 100 MCG/2 ML VIAL IV ONE (12:10)
[2018-10-09] MEDS ORDERED: ONDANSETRON 4 MG/2 ML VIAL IV ONE (12:10)
[2018-10-09] MEDS ORDERED: PROPOFOL 200 MG/20 ML VIAL IV ONE (12:10)
[2018-10-09] MEDS ORDERED: PHENYLEPHRINE 10 MG/ML VIAL IV ONE (12:10)
--- NOTE | 2018-10-09 13:45 | Surgical Pathology Report ---
HISTOLOGY SPECIMEN MICROSCOPIC DIAGNOSIS SPECIMEN A - SOFT TISSUE, LEFT URETERAL FOREIGN BODY, BIOPSY: -- ORGANIZING HEMORRHAGE WITH ACUTE AND CHRONIC INFLAMMATION. -- NO VIABLE EPITHELIUM, CYTOLOGIC ATYPIA OR MALIGNANCY IDENTIFIED. SPECIMEN B - URINARY BLADDER, WALL, BIOPSY: -- FOCAL LOW-GRADE PAPILLARY UROTHELIAL CARCINOMA, NON-INVASIVE. -- NO MUSCULARIS PROPRIA IDENTIFIED. -- FOCAL MUCOSAL ULCERATION WITH ACUTE/CHRONIC INFLAMMATION. -- NO INVASIVE MALIGNANCY IDENTIFIED. (ACP:adj) GROSS DESCRIPTION Specimen A: Received in formalin labeled with the patient information, are multiple purple-sutton tissue fragments less than 0.1 to 0.7 cm. Entirely submitted - one cassette. Specimen B: Received in formalin labeled with the patient information, are two arreola-sutton tissue fragments 0.2 and 0.6 cm. Entirely submitted - one cassette. (SCB:sln) Electronically Signed by: Sohail Duran M.D.
[2018-10-09] MEDS: ATORVASTATIN 20 MG TABLET PO SCH (21:23)
[2018-10-09] MEDS: traZODone HCL 50 MG TABLET PO SCH (21:23)
[2018-10-09] MEDS: LORazepam 2 MG/ML VIAL IV PRN (21:24)
[2018-10-10] MEDS: 0.9 % SODIUM CHLORIDE 10 ML SYRINGE IV SCH (04:17)
--- NOTE | 2018-10-10 06:36 | Nephrology Progress Note ---
Subjective Patient information: Note initiated : 10/10/18 at 6:29 am Patient: Ema Vang 78 y/o F admitted on 09/29/18 for abdominal pain. Chief Complaint: Weakness Principal diagnosis: Abdominal pain Pertinent ROS: Left lower quadrant abdominal pain, improved Gross hematuria, persistent Dysuria Nausea, resolved No flank pain No diarrhea No edema Objective - Vital Signs Vital signs: Vital Signs Temp Pulse Resp BP BP BP Pulse Ox 10/10/18 03:26 97.9 F 75 20 106/52 92 10/09/18 23:35 98.0 F 75 20 107/56 94 10/09/18 20:28 98.0 F 121/52 10/09/18 18:50 98.0 F 81 24 H 121/52 91 10/09/18 15:14 99.1 F H 82 16 112/51 92 10/09/18 11:15 98.1 F 72 16 149/68 92 10/09/18 07:54 97.4 F 79 20 154/68 95 Intake and Output 10/09/18 10/10/18 10/10/18 21:59 05:59 13:59 Intake Total 1000 100 Output Total 200 375 Balance 800 -275 Intake: Oral 1000 100 Output: Void Amount 200 375 Other: Meal Dinner Percent of Meal Consumed 100% Feeding Ability Independent Urine Appearance Hematuria Urine Color Tea Colored Urine Odor Normal Weight 160 lb 4.8 oz Intake & Output: Intake & Output 10/09/18 10/10/18 10/10/18 21:59 05:59 13:59 Intake Total 1000 100 Output Total 200 375 Balance 800 -275 Weight 160 lb 4.8 oz Intake: Oral 1000 100 Output: Void Amount 200 375 Other: Meal Dinner Percent of Meal Consumed 100% Feeding Ability Independent Urine Appearance Hematuria Urine Color Tea Colored Urine Odor Normal - General Appearance General appearance: appears started age, fatigue EENT: mucous membranes moist Neck: supple Respiratory: clear Cardiology: no edema Gastrointestinal: no tenderness Integumentary: no rash, warm and dry Neurologic: no focal deficit, alert and oriented x3 Musculoskeletal: no deformities Psychiatric: mood/affect appropriate, cooperative - Lab 10/09/18 04:19 10/09/18 04:19 Most recent lab results Calcium 9.8 mg/dl (8.6-10.4) 10/09/18 04:19 Phosphorus 4.6 mg/dL (2.7-4.5) H 10/09/18 04:19 Magnesium 1.7 mg/dL (1.6-2.5) 10/09/18 04:19 Assessment and Plan (1) ESRD on peritoneal dialysis Ema Vang is a 78-year-old female with end-stage renal disease on chronic peritoneal dialysis (followed by Dr. 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 She reported sudden onset abdominal pain (at 8:30PM last night), generalized, but mostly lower abdominal, constant not crampy, never resolved since started, associated with nausea and vomiting (not coffee ground or bloody), no diarrhea or constipation. Last BM yesterday light brown. PD fluid clear. No problems with PD dwell or drain. urine looked somewhat bloody but no dysuria. She has been on Prednisone taper off for arthritis. No other new medications. Renal cyst rupture/hemorrhage or nephrolithiasis considered due to sudden onset abdominal pain. Ciprofloxacin was given for suspected renal cyst infection due to leukocytosis, however this could also be due to Prednisone she was recently started. Acute pancreatitis suspected due to lipase elevation. Recent work up: EGD on 05/04/18: Schatzki's ring. Gastric polyp. Query celiac. Colonoscopy on 05/04/18: Colonic polyps. Query microscopic colitis. CT Abdomen and Pelvis on 07/30/18: Pneumoperitoneum. This is probably iatrogenic secondary to peritoneal dialysis catheter. Multiple large renal cysts consistent with polycystic kidney disease. No hydronephrosis . Mild diverticulosis. No evidence for diverticulitis. Extensive calcified atherosclerotic disease. Work up: Labs on 09/29/18: PD Fluid cell count: Nucleated cells 16, 10% neutrophils Gram stain no polys, no organism Culture pending CT KUB on 09/29/18: History of polycystic kidney disease and renal failure. Extensive atherosclerotic disease. No abdominal aortic aneurysm. No acute or focal abnormality. Gall bladder US on 10/09/18: Negative examination for cholelithiasis. Trace pericholecystic fluid. No other abnormality. CT Abdomen and Pelvis with oral contrast on 10/01/18: Polycystic kidney disease. Patient is on peritoneal dialysis. There is intraperitoneal fluid which may be dialysate. No acute intra-abdominal abnormality. Transvaginal US on 10/01/18: Mild free pelvic fluid. Previous hysterectomy. Ovaries are not visualized Gall bladder US on 10/03/18: Mild biliary sludge in the dependent portion of the gallbladder. This is a new finding. No discrete calculi. No gallbladder wall thickening. There is minimal pericholecystic fluid which may be from peritoneal dialysis. Possible 10 mm pancreatic head mass. Further evaluation recommended. CT Abdomen and Pelvis without contrast on 10/06/18: Increased left hydron ephrosis and hydroureter. This is slightly increased since 10/01/2018 and definitely increased since 07/30/2018. There is no obstructing calculus identified. Clinical correlation for possible recently passed stone, sloughed papilla or blood clot, or tumor recommended. Follow-up noncontrast enhanced CT scan may be helpful. Contrast-enhanced CT scan or cystoscopy may be necessary. Density in the gallbladder consistent with cholelithiasis. Severe atherosclerotic disease. Probable significant stenosis in the left common iliac artery. Polycystic kidneys with renal failure. Hemodialysis shunt catheter is present. Progress: Left lower quadrant abdominal pain, gross hematuria and dysuria with left hydronephrosis and hydroureter without obstructing calculus on CT. Left ureteral obstruction due to blood clots s/p cystoscopy, retrograde pyelogram, ureteroscopy, removal of clot, bladder biopsy, and stent placement on 10/08/18. Pathology: Organizing hemorrhage with acute and chronic inflammation: no viable epithelium, cytologic atypia or malignancy identified. Urinary bladder, wall, biopsy: Focal low-grade papillary urothelial carcinoma, non-invasive; No muscularis propria identified; Focal mucosal ulceration with acute/chronic inflammation; No invasive malignancy identified. Plan: CCPD with 1.5/2.5%, total volume 7,200 ml, 4 exchanges of 1,800 ml, total time 9 hours. Status: Chronic Priority: Medium (2) Acute blood loss anemia Please see below Status: Acute Priority: High (3) Anemia due to end stage renal disease Acute blood loss anemia due to gross hematuria on chronic anemia due to ESRD. Treatment: Aranesp 40 mcg IV x 1 on 09/30/18 for Hb <10 Aranesp 100 mcg IV x 1 on 10/06/18 for Hb <10 Status: Chronic Priority: Medium (4) Secondary hyperparathyroidism of renal origin Sensipar 60 mg daily resumed due to hypercalcemia Status: Chronic Priority: Medium
[2018-10-10] MEDS: INSULIN LISPRO 1 UNIT/0.01 ML UNIT SQ SCH (07:27)
[2018-10-10] MEDS: CINACALCET 30 MG TABLET PO SCH (07:36)
[2018-10-10] MEDS: PANTOPRAZOLE 40 MG PACKET PO SCH (07:36)
[2018-10-10] MEDS: SEVELAMER 800 MG TABLET PO SCH (07:36)
[2018-10-10] MEDS: CARVEDILOL 12.5 MG TABLET PO SCH (07:36)
[2018-10-10] MEDS: FUROSEMIDE 40 MG TABLET PO SCH (08:48)
[2018-10-10] MEDS: ACETAMINOPHEN 325 MG TABLET PO PRN (08:48)
[2018-10-10] MEDS: ONDANSETRON 4 MG ODT TABLET SL SCH (08:48)
[2018-10-10] MEDS: amLODIPine 10 MG TABLET PO SCH (08:48)
[2018-10-10] MEDS: LISINOPRIL 5 MG TABLET PO SCH (08:48)
[2018-10-10] MEDS: SALMETEROL INH SCH (08:49)
[2018-10-10] MEDS: FLUTICASONE INH SCH (08:49)
[2018-10-10] MEDS: DOCUSATE SODIUM 100 MG CAPSULE PO SCH (08:49)
[2018-10-10] MEDS: CLOTRIMAZOLE CRM 1% 1 DOSE TUBE TOPICAL SCH (08:49)
== END 2018-10-10 09:15 | disposition home or self-care (01) | DRG 656 ==
LOC: ED 10:20 → ICU 15:00 → MEDSUR 19:40
PROVIDERS: ADMIT Internal Medicine; ATTEND Internal Medicine

== ENCOUNTER 2018-12-04 12:13 | Inpatient (IN) ==
[2018-12-04] MEDS ORDERED: ONDANSETRON 4 MG/2 ML VIAL IV ONE (12:55)
[2018-12-04] MEDS ORDERED: 0.9 % SODIUM CHLORIDE 500 ML IV ONE (12:56)
--- NOTE | 2018-12-04 12:59 | Emergency Department Note ---
Nausea/Vomiting/Diarrhea HPI - General Chief complaint: Nausea/Vomiting/Diarrhea Stated complaint: diarrhea Time Seen by Provider: 12/04/18 12:25 Source: patient Mode of arrival: ambulatory Limitations: no limitations - History of Present Illness HPI Narrative: Patient reports diarrhea that started Monday night. She had multiple episodes of stools Monday, somewhat improving Monday and Monday but then Monday night had a lot of diarrhea as well. Last night diffuse diarrhea. She took one Imodium this morning and no stool since then. She does do peritoneal dialysis which she does at home for the last 3 years. Still urinates sometimes small amount occasionally more depends on how much fluid she drinks. Dollop pain associated with the diarrhea. No recent fevers or chills, patient recently hospitalized for hematuria which ended up being a bladder cancer. She had chemotherapy installed into the bladder at that time MD complaint: nausea, vomiting, diarrhea - Related Data Home Medications Medication Instructions Recorded Confirmed carvedilol 25 mg tablet 25 mg PO BID tab 01/29/15 10/30/18 Cinacalcet [Sensipar] 60 mg PO DAILY 07/30/18 10/30/18 Furosemide [Lasix] 40 mg PO DAILY 07/30/18 10/30/18 Lidocaine 1 patch TOPICAL PRN PRN 07/30/18 10/30/18 Lisinopril [Zestril] 1 tab PO BID 07/30/18 10/30/18 Sensipar 30 mg PO HS 07/30/18 10/30/18 Zofran 8 mg PO Q8HP PRN 07/30/18 10/30/18 Sevelamer HCl [Renagel] 1,600 mg PO DAILY 10/30/18 10/30/18 Previous Rx's Medication Instructions Recorded fluticasone 250 mcg-salmeterol 50 1 puff INHALATION BID #1 each 08/28/15 mcg/dose blistr powdr for inhalation gentamicin 0.1 % topical cream 1 applic TOPICAL QDAY #30 g 10/26/17 trazodone 50 mg tablet 50 mg PO QHS #90 tab 07/09/18 Loperamide [Imodium] 2 mg PO PRN PRN #30 cap 08/02/18 Ondansetron [Zofran ODT] 4 mg SL DAILY #30 tab 08/02/18 atorvastatin 20 mg tablet 20 mg PO QDAY #90 tab 08/27/18 amlodipine 5 mg tablet 10 mg PO QDAY #180 tab 09/07/18 furosemide 80 mg tablet 120 mg PO BID #270 tab 09/27/18 vitamin B complex with C-folic 1 tab PO QDAY #90 tab 11/13/18 acid 0.8 mg-zinc citrate 15 mg tablet Allergies Allergy/AdvReac Type Severity Reaction Status Date / Time Penicillins Allergy Mild Hives Verified 11/08/18 09:35 ciprofloxacin [From Cipro] AdvReac Mild "Intoleranc Verified 11/08/18 09:35 e codeine AdvReac Mild Vomiting Verified 11/08/18 09:35 hydrocodone AdvReac Mild Vomiting Verified 11/08/18 09:35 Amoxicillin [From Augmentin] AdvReac Unknown Verified 12/04/18 12:17 clavulanic acid AdvReac Unknown Verified 12/04/18 12:17 [From Augmentin] tramadol AdvReac Unknown Unknown Verified 11/08/18 09:35 Review of Systems All systems ED: reviewed and negative except as stated. 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 Absent: conjunctival injection ENT: normal exam, normal oropharynx, mucous membranes moist, TM's normal bilaterally, normal external ear exam Neck: Present: normal inspection, full ROM, trachea midline. Absent: tenderness, meningismus Chest: Present: normal inspection, symmetric chest wall rise Respiratory: Present: normal lung sounds bilaterally. Absent: respiratory distress, wheezes Cardiovascular: Present: regular rate, normal heart sounds Abdominal: Present: soft, normal bowel sounds. Absent: distention, tenderness, guarding, rebound Extremities: Present: normal inspection, full ROM. Absent: pedal edema Back: Present: normal inspection. Absent: CVA tenderness (R), CVA tenderness (L) Neurological: Present: alert, oriented X3, CN II-XII intact Psychiatric: Present: normal affect Skin: Present: warm, normal color. Absent: rash Course - Reevaluation(s) Reevaluation #1: Patient started on IV fluids up. It turns out her potassium was low at 3.1. We did give her 10 mEq of potassium for that. We also started her on Pedialyte oral fluids, she had a total of 4 bowel movements during her stay in the ED and on one occasion she was incontinent of stool in bed. She is denying much abdominal pain however the elevated white blood cell count is concerning. Also the uncontrollable diarrhea is concerning . She also has a low potassium which will need to be monitored in the setting of dialysis requirement as well as diarrhea. It turns out her stool tested positive for C. difficile. Lactic acid is still pending at this time. Vital Signs Temperature 97.9 F 12/04/18 12:13 Pulse Rate 103 H 12/04/18 12:13 Respiratory Rate 18 12/04/18 12:13 Blood Pressure 129/76 12/04/18 12:13 Pulse Oximetry (%) 96 12/04/18 12:13 Temperature 98.5 F 12/04/18 12:48 Pulse Rate 83 12/04/18 16:46 Respiratory Rate 20 12/04/18 16:46 Blood Pressure 138/69 12/04/18 16:46 Pulse Oximetry (%) 96 12/04/18 16:46 Nausea/Vomiting/Diarrhea - MDM Narrative Medical decision making narrative: Impression is C. difficile diarrhea. Peritoneal dialysis requirement. Hypokalemia. Discussed hospital admission with Dr. Sherif reagan as well as Dr. Luong. - Lab Data Lab results reviewed: Yes I reviewed the patient's lab results. Result diagrams: 12/04/18 12:50 12/04/18 12:50 Lab Results 12/04/18 12/04/18 12/04/18 Range/Units 12:50 12:50 12:54 WBC 14.0 H (4.5-11.0) K/mcL RBC 4.09 (4.00-5.20) M/mcL Hgb 10.9 L (12.0-15.0) g/dL Hct 34.1 L (36.0-48.0) % POC Hct 34.0 L (36.0-48.0) % MCV 83.4 (80.0-100.0) fL MCH 26.7 (26.0-34.0) pg MCHC 32.0 (31.0-36.0) g/dL RDW 15.4 H (11.5-14.5) % Plt Count 330 (140-440) K/mcL MPV 8.6 (7.4-10.4) fL Gran % 70.3 (38.0-78.0) % Lymph % (Auto) 18.3 (15.5-49.0) % [place] % (Auto) 10.8 (1.0-12.0) % Eos % (Auto) 0.3 (0.0-7.0) % Baso % (Auto) 0.3 (0.0-2.0) % Gran # 9.8 H (1.8-8.0) K/mcL Lymph # (Auto) 2.6 (1.5-4.8) K/mcL [place] # (Auto) 1.5 H (0.1-0.9) K/mcL Eos # (Auto) 0 (0.0-0.7) K/mcL Baso # (Auto) 0 (0.0-0.3) K/mcL ESR 81 H (0-20) mm/hr POC Sodium 133 (133-145) mmol/L Sodium 136 (133-145) mmol/L POC Potassium 3.1 L (3.3-5.1) mmol/L Potassium 3.4 (3.3-5.1) mmol/L POC Chloride 95 L (96-108) mmol/L Chloride 93 L (96-108) mmol/L Carbon Dioxide 23 (22-30) mmol/L POC Total CO2 25 (22-30) mmol/L Anion Gap 20.0 H (8-16) POC BUN 78 H (8-23) mg/dl BUN 80 H (8-23) mg/dl Creatinine 6.8 H* (0.6-1.1) mg/dl POC Creatinine 7.9 H* (0.6-1.1) mg/dl GFR Calculation 5 Glucose 117 H (70-105) mg/dL POC Glucose 123 H (70-105) mg/dL Calcium 9.6 (8.6-10.4) mg/dl POC WB Ioniz Calcium 1.13 L (1.16-1.32) mmol/L Total Bilirubin 0.2 (0.0-1.0) mg/dL AST 11 (0-37) U/l ALT 6 (0-40) U/l Alkaline Phosphatase 154 H (39-117) U/L Total Protein 7.4 (5.9-8.4) gm/dL Albumin 4.1 (3.2-5.2) gm/dL Globulin 3.3 (2.2-3.7) gm/dL Albumin/Globulin Ratio 1.2 (1.0-2.3) Urine Color Urine Appearance Urine pH (5.0-9.0) Ur Specific [place] (1.000-1.035) Urine Protein (NEG) mg/dL Urine Glucose (UA) (NEG) mg/dL Urine Ketones (NEG) mg/dL Urine Occult Blood (<0.03) mg/dL Urine Nitrate (NEG) Urine Bilirubin (NEG) mg/dL Urine Urobilinogen (NEG) mg/dL Ur Leukocyte Esterase (NEG) /uL Urine RBC (0-1) /hpf Urine WBC (0-4) /hpf Ur Squamous Epith Cells (0-4) /hpf Amorphous Crystals (0) /hpf Urine Bacteria (0) /hpf Hyaline Casts (0-2) /lpf Ur Culture Indicated? Fluid Neutrophils Fluid Lymphocytes Fluid Monocytes Fluid Eosinophils Fluid Basophils Fluid Plasma Cells Fluid Macrophages Fld Mesothelial Cells 12/04/18 12/04/18 Range/Units 15:07 16:40 WBC (4.5-11.0) K/mcL RBC (4.00-5.20) M/mcL Hgb (12.0-15.0) g/dL Hct (36.0-48.0) % POC Hct (36.0-48.0) % MCV (80.0-100.0) fL MCH (26.0-34.0) pg MCHC (31.0-36.0) g/dL RDW (11.5-14.5) % Plt Count (140-440) K/mcL MPV (7.4-10.4) fL Gran % (38.0-78.0) % Lymph % (Auto) (15.5-49.0) % [place] % (Auto) (1.0-12.0) % Eos % (Auto) (0.0-7.0) % Baso % (Auto) (0.0-2.0) % Gran # (1.8-8.0) K/mcL Lymph # (Auto) (1.5-4.8) K/mcL [place] # (Auto) (0.1-0.9) K/mcL Eos # (Auto) (0.0-0.7) K/mcL Baso # (Auto) (0.0-0.3) K/mcL ESR (0-20) mm/hr POC Sodium (133-145) mmol/L Sodium (133-145) mmol/L POC Potassium (3.3-5.1) mmol/L Potassium (3.3-5.1) mmol/L POC Chloride (96-108) mmol/L Chloride (96-108) mmol/L Carbon Dioxide (22-30) mmol/L POC Total CO2 (22-30) mmol/L Anion Gap (8-16) POC BUN (8-23) mg/dl BUN (8-23) mg/dl Creatinine (0.6-1.1) mg/dl POC Creatinine (0.6-1.1) mg/dl GFR Calculation Glucose (70-105) mg/dL POC Glucose (70-105) mg/dL Calcium (8.6-10.4) mg/dl POC WB Ioniz Calcium (1.16-1.32) mmol/L Total Bilirubin (0.0-1.0) mg/dL AST (0-37) U/l ALT (0-40) U/l Alkaline Phosphatase (39-117) U/L Total Protein (5.9-8.4) gm/dL Albumin (3.2-5.2) gm/dL Globulin (2.2-3.7) gm/dL Albumin/Globulin Ratio (1.0-2.3) Urine Color Yellow Urine Appearance Cloudy Urine pH 5.0 (5.0-9.0) Ur Specific [place] 1.014 (1.000-1.035) Urine Protein 100 A (NEG) mg/dL Urine Glucose (UA) Negative (NEG) mg/dL Urine Ketones Neg (NEG) mg/dL Urine Occult Blood 0.2 A (<0.03) mg/dL Urine Nitrate Neg (NEG) Urine Bilirubin Neg (NEG) mg/dL Urine Urobilinogen Neg (NEG) mg/dL Ur Leukocyte Esterase 250 A (NEG) /uL Urine RBC 20 H (0-1) /hpf Urine WBC 29 H (0-4) /hpf Ur Squamous Epith Cells 4 (0-4) /hpf Amorphous Crystals Few A (0) /hpf Urine Bacteria Few A (0) /hpf Hyaline Casts 5 H (0-2) /lpf Ur Culture Indicated? Yes Fluid Neutrophils Not Reportable Fluid Lymphocytes Not Reportable Fluid Monocytes Not Reportable Fluid Eosinophils Not Reportable Fluid Basophils Not Reportable Fluid Plasma Cells Not Reportable Fluid Macrophages Not Reportable Fld Mesothelial Cells Not Reportable Disposition Pt seen by CREDIT RISK MANAGER/PA only: No Clinical Impression: Clostridium difficile infection Disposition: Still a Patient Condition: Fair Referrals: Sky Ceja MD [Primary Care Provider] -
[2018-12-04 14:03] LABS: Basophils # (Auto) 0 K/mcL (0.0-0.3); Basophils % (Auto) 0.3 % (0.0-2.0); Eosinophils # (Auto) 0 K/mcL (0.0-0.7); Eosinophils % (Auto) 0.3 % (0.0-7.0); Granulocytes % (Auto) 70.3 % (38.0-78.0); Lymphocytes # (Auto) 2.6 K/mcL (1.5-4.8); Lymphocytes % (Auto) 18.3 % (15.5-49.0); Mean Cell Volume 83.4 fL (80.0-100.0); Monocytes # (Auto) 1.5 K/mcL (0.1-0.9); Monocytes % (Auto) 10.8 % (1.0-12.0); Platelet Count 330 K/mcL (140-440); RBC 4.09 M/mcL (4.00-5.20); Red Cell Distribution Width 15.4 % (11.5-14.5)
[2018-12-04 14:15] LABS: ALT/SGPT 6 U/l (0-40); Albumin 4.1 gm/dL (3.2-5.2); Albumin/Globulin Ratio 1.2 (1.0-2.3); Alkaline Phosphatase 154 U/L (39-117); Blood Urea Nitrogen 80 mg/dl (8-23)
[2018-12-04 15:11] LABS: Erythrocyte Sedimentation Rate 81 mm/hr (0-20)
[2018-12-04 15:39] LABS: Appearance,Urine CLOUDY; Bacteria,Urine FEW /hpf (0); Bilirubin,Urine NEG (NEG); Color,Urine YELLOW; Glucose,Urine (UA) NEGATIVE (NEG); Leukocyte Esterase,Urine 250 /uL (NEG); Protein,Urine 100 mg/dL (NEG); Specific Gravity,Urine 1.014 (1.000-1.035); Urine Amorphous Crystals FEW /hpf (0); Urine Blood 0.2 mg/dL (<0.03); Urine Hyaline Cast 5 /lpf (0-2); Urine RBC 20 /hpf (0-1); Urine Squamous Epithelial Cell 4 /hpf (0-4); Urine WBC 29 /hpf (0-4); Urobilinogen,Urine NEG (NEG)
[2018-12-04] MEDS ORDERED: ELECTROLYTE,ORAL 1,000 ML SOLUTION PO ONE (16:49)
[2018-12-04] MEDS ORDERED: POTASSIUM CHLORIDE 10 MEQ TABLET PO ONE (16:50)
[2018-12-04] MEDS ORDERED: metroNIDAZOLE 500 MG TABLET PO ONE (16:59)
--- NOTE | 2018-12-04 17:04 | Nephrology Consult Note ---
History of Present Illness - Reason for Consult Patient information: Note initiated : 12/04/18 at 5:02 pm Patient: Ema Vang 78 y/o F admitted on for diarrhea. Consult date: 12/04/18 end stage renal disease Requesting physician: Coy Banda - Chief Complaint Diarrhea - History of Present Illness Ema Vang is a 78-year-old female with end-stage renal disease on chronic peritoneal dialysis (followed by Dr. 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 The patient was diagnosed with C diff colitis. Review of Systems Constitutional: anorexia, fatigue Nose, mouth and throat: no nasal congestion, no sore throat Cardiovascular: no chest pain, no palpatations Respiratory: no dyspnea, no wheezing Gastrointestinal: abdominal pain, diarrhea Genitourinary: no dysuria, no hematuria Musculoskeletal: no joint swelling, no neck pain Integumentary: no rash, no wounds Neurological: no confusion, no focal weakness Psychiatric: no anxiety, no panic attacks Endocrine: no cold intolerance, no heat intolerance Hematologic/Lymphatic: no easy bleeding, no easy bruising Allergic/Immunologic: no tongue swelling, no uticaria Past History Past medical history: Medical History (Last Reviewed 10/23/18 @ 15:07 by Kayley Fisher RN) Abdominal pain (Acute) Urinary retention (Acute) Hypertensive renal disease (Chronic) Proteinuria (Chronic) Edema (Chronic) Secondary hyperparathyroidism of renal origin (Chronic) Diabetes mellitus (Chronic) Hx of hysterectomy (Acute) Vitamin D deficiency (Acute) Sinusitis, chronic (Acute) Seborrheic keratosis (Acute) Overweight (Acute) Osteoporosis (Acute) Obesity (Acute) Insomnia (Chronic) Hypertensive heart disease, benign w/chronic kidney disease stage 1-4 (Acute) Hyperlipidemia (Acute) Hypertension (Acute) Gastroesophageal reflux (Acute) Diabetes mellitus, type II (Acute) Depression (Acute) COPD (chronic obstructive pulmonary disease) (Acute) Anxiety (Acute) Past surgical history: Past Surgical History (Last Reviewed 10/23/18 @ 15:07 by Kayley Fisher, ZAHIDA) Hx of esophagogastroduodenoscopy (Acute) Past family history: Family History (Last Reviewed 10/23/18 @ 15:07 by Kayley Fisher RN) mother Rheumatoid arthritis Malignant neoplasm of colon brother Diabetes mellitus Morbid obesity sister x2 Diabetes mellitus sister Parkinson's Disease Pneumonia, Onset Age: 59 Sister Renal failure Past social history: Social History (Last Updated 10/23/18 @ 15:27 by Carlos A Camargo MD) No Social History Section defined Medications and Allergies Home Medications Medication Instructions Recorded Confirmed Type carvedilol 25 mg tablet 25 mg PO BID tab 01/29/15 10/30/18 History fluticasone 250 mcg-salmeterol 50 1 puff INHALATION BID #1 each 08/28/15 10/30/18 Rx mcg/dose blistr powdr for inhalation gentamicin 0.1 % topical cream 1 applic TOPICAL QDAY #30 g 10/26/17 10/30/18 Rx trazodone 50 mg tablet 50 mg PO QHS #90 tab 07/09/18 10/30/18 Rx Cinacalcet [Sensipar] 60 mg PO DAILY 07/30/18 10/30/18 History Furosemide [Lasix] 40 mg PO DAILY 07/30/18 10/30/18 History Lidocaine 1 patch TOPICAL PRN PRN 07/30/18 10/30/18 History Lisinopril [Zestril] 1 tab PO BID 07/30/18 10/30/18 History Sensipar 30 mg PO HS 07/30/18 10/30/18 History Zofran 8 mg PO Q8HP PRN 07/30/18 10/30/18 History Loperamide [Imodium] 2 mg PO PRN PRN #30 cap 08/02/18 10/30/18 Rx Ondansetron [Zofran ODT] 4 mg SL DAILY #30 tab 08/02/18 10/30/18 Rx atorvastatin 20 mg tablet 20 mg PO QDAY #90 tab 08/27/18 10/30/18 Rx amlodipine 5 mg tablet 10 mg PO QDAY #180 tab 09/07/18 10/30/18 Rx furosemide 80 mg tablet 120 mg PO BID #270 tab 09/27/18 10/30/18 Rx Sevelamer HCl [Renagel] 1,600 mg PO DAILY 10/30/18 10/30/18 History vitamin B complex with C-folic 1 tab PO QDAY #90 tab 11/13/18 Rx acid 0.8 mg-zinc citrate 15 mg tablet Allergies Allergy/AdvReac Type Severity Reaction Status Date / Time Penicillins Allergy Mild Hives Verified 11/08/18 09:35 ciprofloxacin [From Cipro] AdvReac Mild "Intoleranc Verified 11/08/18 09:35 e codeine AdvReac Mild Vomiting Verified 11/08/18 09:35 hydrocodone AdvReac Mild Vomiting Verified 11/08/18 09:35 Amoxicillin [From Augmentin] AdvReac Unknown Verified 12/04/18 12:17 clavulanic acid AdvReac Unknown Verified 12/04/18 12:17 [From Augmentin] tramadol AdvReac Unknown Unknown Verified 11/08/18 09:35 Exam - Vital Signs Vital signs: Temp Pulse Resp BP Pulse Ox 98.5 F 83 20 138/69 96 12/04/18 12:48 12/04/18 16:46 12/04/18 16:46 12/04/18 16:46 12/04/18 16:46 - General Appearance General appearance: appears started age, fatigue EENT: mucous membranes dry Neck: supple Respiratory: clear Cardiology: no edema Gastrointestinal: tenderness Integumentary: warm and dry Neurologic: no focal deficit, alert and oriented x3 Musculoskeletal: no deformities Psychiatric: mood/affect appropriate, cooperative Results - Lab Results 12/04/18 12:50 12/04/18 12:50 Most recent lab results Calcium 9.6 mg/dl (8.6-10.4) 12/04/18 12:50 Assessment and Plan (1) ESRD on peritoneal dialysis Ema Vang is a 78-year-old female with end-stage renal disease on chronic peritoneal dialysis (followed by Dr. 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 Previous work up: EGD on 05/04/18: Schatzki's ring. Gastric polyp. Query celiac. Colonoscopy on 05/04/18: Colonic polyps. Query microscopic colitis. CT Abdomen and Pelvis on 07/30/18: Pneumoperitoneum. This is probably iatrogenic secondary to peritoneal dialysis catheter. Multiple large renal cysts consistent with polycystic kidney disease. No hydronephrosis . Mild diverticulosis. No evidence for diverticulitis. Extensive calcified atherosclero tic disease. CT KUB on 09/29/18: History of polycystic kidney disease and renal failure. Extensive atherosclerotic disease. No abdominal aortic aneurysm. No acute or focal abnormality. Transvaginal US on 10/01/18: Mild free pelvic fluid. Previous hysterectomy. Ovaries are not visualized. CT Abdomen and Pelvis with oral contrast on 10/01/18: Polycystic kidney disease. Patient is on peritoneal dialysis. There is intraperitoneal fluid which may be dialysate. No acute intra-abdominal abnormality. Gall bladder US on 10/03/18: Mild biliary sludge in the dependent portion of the gallbladder. This is a new finding. No discrete calculi. No gallbladder wall thickening. There is minimal pericholecystic fluid which may be from peritoneal dialysis. Possible 10 mm pancreatic head mass. Further evaluation recommended. CT Abdomen and Pelvis without contrast on 10/06/18: Increased left hydronephrosis and hydroureter. This is slightly increased since 10/01/2018 and definitely increased since 07/30/2018. There is no obstructing calculus identified. Clinical correlation for possible recently passed stone, sloughed papilla or blood clot, or tumor recommended. Follow-up noncontrast enhanced CT scan may be helpful. Contrast-enhanced CT scan or cystoscopy may be necessary. Density in the gallbladder consistent with cholelithiasis. Severe atherosclerotic disease. Probable significant stenosis in the left common iliac artery. Polycystic kidneys with renal failure. Hemodialysis shunt catheter is present. Left ureteral obstruction due to blood clots s/p cystoscopy, retrograde pyelogram, ureteroscopy, removal of clot, bladder biopsy, and stent placement on 10/08/18. Pathology: Organizing hemorrhage with acute and chronic inflammation: no viable epithelium, cytologic atypia or malignancy identified. Urinary bladder, wall, biopsy: Focal low-grade papillary urothelial carcinoma, non-invasive; No muscularis propria identified; Focal mucosal ulceration with acute/chronic inflammation; No invasive malignancy identified. Gall bladder US on 10/09/18: Negative examination for cholelithiasis. Trace p ericholecystic fluid. No other abnormality. Work up: PD fluid analysis pending. Plan: CCPD with 1.5/2.5%, total volume 7,200 ml, 4 exchanges of 1,800 ml, total time 9 hours. Status: Chronic Priority: Medium
--- NOTE | 2018-12-04 17:20 | Internal Med History&Physical ---
Medical - H&P: [facility] Patient information: Note initiated : 12/04/18 at 5:18 pm Service Date, if different from initiated Date: [] Patient: Ema Vang a 78 y/o F admitted on for diarrhea. Chief Complaint: [] Chief complaint: dirrhea History of present illness: Ms. Vang is a 78 year old F with history of ESRD on peritoneal dialysis who presents with worsening weakness secondary to diarrhea that has progressed over the last 4 days. Patient endorses to multiple 8-10 liquid watery stool without associated cramps/mucus or blood. She denies associated fever. She endorses to weakness lightheadedness during activity. Denies associated nausea. She presents to the ER accompanied by her with above symptoms. Initial workup was consistent with C. difficile colitis along with sepsis and leukocytosis and 14,000 and signs of volume depletion. Hospitalist service was consulted. Patient was started on oral vancomycin At the time evaluation patient is alert and oriented. She was able to answer most questions. Notably patient was recently hospitalized between 09/30-10/10 for abdominal pain, dysuria and hematuria and was treated with Rocephin and was subsequently changed to cefepime for MDR UTI. She was subsequently diagnosed with bladder cancer and underwent transurethral resection of moderate size tumor on 11/[address] Almanzar Patient has been recovering fairly well since the procedure until the onset of diarrhea since Monday. She denies chest pain, shortness of breath, rash or joint pain. Review of systems 10 point system was performed and is negative except above Medical - H&P: PMH Medical history: Abdominal pain (Acute) Urinary retention (Acute) Hypertensive renal disease (Chronic) Proteinuria (Chronic) Edema (Chronic) Secondary hyperparathyroidism of renal origin (Chronic) Diabetes mellitus (Chronic) Chronic kidney disease, stage V (Chronic) Vitamin D deficiency (Acute) Sinusitis, chronic (Acute) Seborrheic keratosis (Acute) Renal osteodystrophy (Acute) Overweight (Acute) Osteoporosis (Acute) Obesity (Acute) Insomnia (Chronic) Hyposmolality and/or hyponatremia (Acute) Disorder of magnesium metabolism (Acute) Hypertensive heart disease, benign w/chronic kidney disease stage 1-4 (Acute) Hyperparathyroidism, primary (Acute) Hyperparathyroidism (Acute) Hyperlipidemia (Acute) Hyperkalemia (Acute) Hypercalcemia (Acute) Hypertension (Acute) Gastroesophageal reflux (Acute) Diabetes mellitus, type II (Acute) Depression (Acute) COPD (chronic obstructive pulmonary disease) (Acute) Chronic kidney disease, stage IV (severe) (Acute) Anxiety (Acute) Anemia, iron deficiency (Acute) 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) Acute renal disease (Acute) Past Surgical History Hx of hysterectomy (Acute) Hx of esophagogastroduodenoscopy (Acute) Low back surgery Family History mother Rheumatoid arthritis Malignant neoplasm of colon brother Diabetes mellitus Morbid obesity sister x2 Diabetes mellitus sister Parkinson's Disease Pneumonia, Onset Age: 59 Sister Renal failure Social History Quit smoking 10 years ago denies alcohol use does not use a cane or walker lives at home with her Medical - H&P: Meds Home Medications Medication Instructions Recorded Confirmed Type carvedilol 25 mg tablet 25 mg PO BIDCC tab 01/29/15 12/05/18 History gentamicin 0.1 % topical cream 1 applic TOPICAL QDAY #30 g 10/26/17 12/04/18 Rx trazodone 50 mg tablet 50 mg PO QHS #90 tab 07/09/18 12/04/18 Rx Cinacalcet [Sensipar] 30 mg PO HS #0 07/30/18 12/05/18 History Cinacalcet [Sensipar] 60 mg PO DAILY 07/30/18 12/04/18 History Lidocaine 1 patch TOPICAL PRN PRN 07/30/18 12/04/18 History Lisinopril [Zestril] 5 mg PO BID 07/30/18 12/04/18 History Loperamide [Imodium] 2 mg PO PRN PRN #30 cap 08/02/18 12/04/18 Rx atorvastatin 20 mg tablet 20 mg PO QDAY #90 tab 08/27/18 12/04/18 Rx amlodipine 5 mg tablet 10 mg PO QDAY #180 tab 09/07/18 12/04/18 Rx furosemide 80 mg tablet 120 mg PO BID #270 tab 09/27/18 12/04/18 Rx Sevelamer HCl [Renagel] 1,600 mg PO TIDCC 10/30/18 12/05/18 History Fluticasone/Salmeterol [Advair 1 puff INH BID 12/04/18 12/04/18 History 250-50 Diskus] Ondansetron [Zofran ODT] 8 mg SL Q8HP PRN 12/04/18 12/05/18 History Allergies Allergy/AdvReac Type Severity Reaction Status Date / Time Penicillins Allergy Mild Hives Verified 11/08/18 09:35 ciprofloxacin [From Cipro] AdvReac Mild "Intoleranc Verified 11/08/18 09:35 e codeine AdvReac Mild Vomiting Verified 11/08/18 09:35 hydrocodone AdvReac Mild Vomiting Verified 11/08/18 09:35 Amoxicillin [From Augmentin] AdvReac Unknown Verified 12/04/18 12:17 clavulanic acid AdvReac Unknown Verified 12/04/18 12:17 [From Augmentin] tramadol AdvReac Unknown Unknown Verified 11/08/18 09:35 Medical - H&P: Exam - Constitutional Vitals: Temp Pulse Resp BP Pulse Ox 98.5 F 83 20 138/69 96 12/04/18 12:48 12/04/18 16:46 12/04/18 16:46 12/04/18 16:46 12/04/18 16:46 General appearance: no acute distress Exam: Alert oriented but anxious Oral cavity dry No urine was discharge Head normocephalic No abnormal rhythm on phototypesetting equipment monitor Chest clear to auscultation Skin no suspicious lesion Nondistended abdomen No lymphedema, ambulating Psych alert cooperative Neuro normal higher function Medical - H&P: Reslt - Labs CBC & Chem 7: 12/05/18 03:40 12/05/18 03:40 Labs: Short CBC 12/04/18 Range/Units 12:50 WBC 14.0 H (4.5-11.0) K/mcL Hgb 10.9 L (12.0-15.0) g/dL Hct 34.1 L (36.0-48.0) % Plt Count 330 (140-440) K/mcL BMP 12/04/18 12:50 Sodium 136 Potassium 3.4 Chloride 93 L Carbon Dioxide 23 BUN 80 H Creatinine 6.8 H* Glucose 117 H Calcium 9.6 Liver Function 12/04/18 Range/Units 12:50 Total Bilirubin 0.2 (0.0-1.0) mg/dL AST 11 (0-37) U/l ALT 6 (0-40) U/l Alkaline Phosphatase 154 H (39-117) U/L Albumin 4.1 (3.2-5.2) gm/dL Urine 12/04/18 Range/Units 15:07 Urine Color Yellow Urine Appearance Cloudy Urine pH 5.0 (5.0-9.0) Ur Specific [place] 1.014 (1.000-1.035) Urine Protein 100 A (NEG) mg/dL Urine Glucose (UA) Negative (NEG) mg/dL Medical - H&P: A/P (1) Clostridium difficile infection Current visit: Yes Status: Acute * C. difficile enterocolitis-start oral vancomycin * Sepsis- secondary to C. difficile. Continue oral vancomycin * Diarrhea- continue crystalloids * Acute cystitis-hold antibiotics at this time * Hypokalemia-start potassium replacement * ESRD on peritoneal dialysis-nephrology consulted * Hypertension-restart home meds in 24 hours * Hyperlipidemia-statin * Full code * Prophylaxis heparin Plan * Oral vancomycin * Nephrology consult * Crystalloids * Pre-existing medical condition management meds * Inpatient admission
[2018-12-04 18:31] LABS: Neutrophils,Peritoneal Fluid 19 %
[2018-12-04 18:34] LABS: Nucleated Cel,Peritoneal Fluid 8 /cumm; RBC,Peritoneal Fluid < 50000 /cumm
[2018-12-04] MEDS ORDERED: ACETAMINOPHEN 325 MG TABLET PO PRN (19:32)
[2018-12-04] MEDS ORDERED: ONDANSETRON 4 MG ODT TABLET SL PRN (20:38)
[2018-12-04] MEDS ORDERED: LOPERAMIDE 2 MG CAPSULE PO PRN (20:38)
[2018-12-04] MEDS: CARVEDILOL 12.5 MG TABLET PO SCH (21:00)
[2018-12-04] MEDS: FUROSEMIDE 80 MG TABLET PO SCH (21:05)
[2018-12-04] MEDS: ONDANSETRON 4 MG ODT TABLET SL SCH (21:05)
[2018-12-04] MEDS: traZODone HCL 50 MG TABLET PO SCH (21:05)
[2018-12-04] MEDS: FLUTICASONE/SALMETEROL 250/50 INHALER #14 INH SCH (21:06)
[2018-12-04] MEDS: DOCUSATE SODIUM 100 MG CAPSULE PO SCH (21:06)
[2018-12-04] MEDS: HEPARIN 5,000 UNIT/ML VIAL SQ SCH (21:07)
[2018-12-04] MEDS: SENNOSIDES/DOCUSATE SODIUM 1 TAB TABLET PO SCH (21:07)
[2018-12-04] MEDS: LISINOPRIL 5 MG TABLET PO SCH (21:08)
[2018-12-04] MEDS: VANCOMYCIN ORAL SOL 1,000 MG/10 ML BOTTLE PO SCH (21:08)
[2018-12-04] MEDS: CINACALCET 30 MG TABLET PO SCH (21:42)
[2018-12-04] MEDS: 0.9 % SODIUM CHLORIDE 10 ML SYRINGE IV SCH (21:43)
[2018-12-05] MEDS: ONDANSETRON 4 MG/2 ML VIAL IV PRN ×4 (03:04→16:21)
[2018-12-05] MEDS: 0.9 % SODIUM CHLORIDE 10 ML SYRINGE IV SCH ×3 (05:27→21:04)
[2018-12-05 05:38] LABS: Mean Cell Volume 83.2 fL (80.0-100.0); Mean Corpuscular HGB Conc 32.1 g/dL (31.0-36.0); Platelet Count 299 K/mcL (140-440); RBC 3.69 M/mcL (4.00-5.20); Red Cell Distribution Width 15.4 % (11.5-14.5)
[2018-12-05 06:05] LABS: ALT/SGPT 6 U/l (0-40); Albumin 3.3 gm/dL (3.2-5.2); Alkaline Phosphatase 139 U/L (39-117); Bilirubin,Direct < 0.2 mg/dL (0.0-0.3); Blood Urea Nitrogen 75 mg/dl (8-23); Gamma Glutamyl Transpeptidase 12 U/L (5-36); Uric Acid 7.6 mg/dL (2.5-8.0)
[2018-12-05] MEDS ORDERED: MAGNESIUM SULFATE 2 GM/50 ML BAG IV ONE ×3 (06:15→22:42)
[2018-12-05 06:40] LABS: Eosinophils % (Manual) 2 % (0-7); Lymphocytes % 15 % (15-49); Monocytes % (Manual) 15 % (1-12); Platelet Estimate NORMAL (NORMAL); RBC Morphology NORMAL (NORMAL); Segmented Neutrophils % 68 % (38-78)
[2018-12-05] MEDS: CARVEDILOL 12.5 MG TABLET PO SCH ×3 (07:19→17:33)
--- NOTE | 2018-12-05 07:49 | Nephrology Progress Note ---
Subjective Patient information: Note initiated : 12/05/18 at 7:47 am Patient: Ema Vang 78 y/o F admitted on 12/04/18 for diarrhea. Chief Complaint: Diarrhea Pertinent ROS: Nausea Diarrhea Abdominal pain No chest pain No shortness of breath No edema Objective - Vital Signs Vital signs: Vital Signs Temp Pulse Pulse Resp BP BP BP 12/05/18 04:00 97.1 F 16 104/53 12/05/18 00:00 98.9 F 16 100/55 12/04/18 21:47 97.5 F 81 16 151/61 12/04/18 21:13 97.6 F 158/60 12/04/18 19:32 97.5 F 76 16 151/60 12/04/18 19:00 98.1 F 12/04/18 18:46 81 157/66 12/04/18 18:34 78 126/66 12/04/18 17:46 86 19 131/64 12/04/18 17:31 86 16 151/65 12/04/18 17:18 85 19 139/79 12/04/18 17:01 86 21 147/67 12/04/18 16:46 83 20 138/69 12/04/18 16:31 81 17 139/64 12/04/18 16:16 82 18 142/67 12/04/18 16:01 93 H 35 H 123/66 12/04/18 15:46 102 H 26 H 101/67 12/04/18 15:31 86 17 138/68 12/04/18 15:16 87 18 138/67 12/04/18 15:01 84 17 150/67 12/04/18 14:46 101 H 20 108/63 12/04/18 14:31 87 18 134/65 12/04/18 14:18 106 H 37 H 134/76 12/04/18 14:17 108 H 18 12/04/18 14:01 95 H 22 110/71 12/04/18 13:31 89 20 141/68 12/04/18 13:16 88 21 133/67 12/04/18 13:01 92 H 20 140/69 12/04/18 13:00 93 H 21 12/04/18 12:50 93 H 21 136/69 12/04/18 12:48 98.5 F 12/04/18 12:13 97.9 F 103 H 18 129/76 Pulse Ox 12/05/18 04:00 94 12/05/18 00:00 94 12/04/18 21:47 97 12/04/18 21:13 12/04/18 19:32 97 12/04/18 19:00 12/04/18 18:46 97 12/04/18 18:34 98 12/04/18 17:46 99 12/04/18 17:31 96 12/04/18 17:18 100 12/04/18 17:01 98 12/04/18 16:46 96 12/04/18 16:31 95 12/04/18 16:16 96 12/04/18 16:01 100 12/04/18 15:46 99 12/04/18 15:31 95 12/04/18 15:16 95 12/04/18 15:01 97 12/04/18 14:46 100 12/04/18 14:31 96 12/04/18 14:18 91 12/04/18 14:17 93 12/04/18 14:01 96 12/04/18 13:31 95 12/04/18 13:16 94 12/04/18 13:01 95 12/04/18 13:00 95 12/04/18 12:50 97 12/04/18 12:48 12/04/18 12:13 96 Intake and Output 12/04/18 12/05/18 12/05/18 21:59 05:59 13:59 Intake Total 150 Output Total 50 Balance 100 Intake: Oral 150 Output: Void Amount 50 Other: Meal sandwich, chesse stick, tea Percent of Meal Consumed 100% Feeding Ability Independent Urine Appearance Clear Fem Cath Cloudy Urine Color Bright Yellow Fem Cath Dark Yellow Urine Odor Normal Fem Cath Normal Stool Size Small Small Stool Color Brown Brown Stool Consistency Liquid Liquid # Bowel Movements 1 1 # of times incontinent of 1 Bowels Weight 145 lb 5 oz Intake & Output: Intake & Output 12/04/18 12/05/18 12/05/18 21:59 05:59 13:59 Intake Total 150 Output Total 50 Balance 100 Weight 145 lb 5 oz Intake: Oral 150 Output: Void Amount 50 Other: Meal sandwich, chesse stick, tea Percent of Meal Consumed 100% Feeding Ability Independent Urine Appearance Clear Fem Cath Cloudy Urine Color Bright Yellow Fem Cath Dark Yellow Urine Odor Normal Fem Cath Normal Stool Size Small Small Stool Color Brown Brown Stool Consistency Liquid Liquid # Bowel Movements 1 1 # of times incontinent of 1 Bowels - General Appearance General appearance: fatigue EENT: mucous membranes moist Neck: supple Respiratory: clear Cardiology: no edema Gastrointestinal: tenderness Integumentary: warm and dry Neurologic: no focal deficit, alert and oriented x3 Musculoskeletal: no deformities Psychiatric: mood/affect appropriate, cooperative - Lab 12/05/18 03:40 12/05/18 03:40 Most recent lab results Calcium 8.7 mg/dl (8.6-10.4) 12/05/18 03:40 Phosphorus 4.8 mg/dL (2.7-4.5) H 12/05/18 03:40 Magnesium 0.9 mg/dL (1.6-2.5) L* 12/05/18 03:40 Assessment and Plan (1) ESRD on peritoneal dialysis Ema Vang is a 78-year-old female with end-stage renal disease on chronic peritoneal dialysis (followed by Dr. Russ), secondary hyperparathyroidism of renal origin, chronic anemia due to kidney disease, coronary artery disease by calcifications on CT, diabetes mellitus type 2, hypertension, hyperlipidemia, chronic obstructive pulmonary disease, presented to ED for diarrhea and admitted for C diff colitis. Work up: Labs on 09/29/18: PD Fluid cell count: Nucleated cells 8, 19% neutrophils, 19% lymphocytes, 62% monocytes Gram stain rare polys, no organism Culture pending Progress: Hypokalemia, hypomagnesemia and metabolic acidosis associated with diarrhea due to C diff colitis. Plan: Magnesium Sulfate 2 gram IV ordered. Potassium Chloride 10 mEq PO BID and Sodium Bicarbonate 650 mg PO BID. CCPD with 1.5%, total volume 7,200 ml, 4 exchanges of 1,800 ml, total time 9 hours. Status: Chronic Priority: Medium (2) Hypokalemia Please see above Status: Acute Priority: Medium (3) Metabolic acidosis Please see above Status: Acute Priority: Medium (4) Hypomagnesemia Please see above Status: Acute Priority: Medium
[2018-12-05] MEDS: SEVELAMER 800 MG TABLET PO SCH ×3 (08:41→17:33)
[2018-12-05] MEDS: POTASSIUM CHLORIDE 10 MEQ TABLET PO SCH ×2 (08:41→17:21)
[2018-12-05] MEDS ORDERED: 0.9 % SODIUM CHLORIDE 500 ML IV ONE (09:13)
[2018-12-05] MEDS: amLODIPine 5 MG TABLET PO SCH (09:28)
[2018-12-05] MEDS: FLUTICASONE/SALMETEROL 250/50 INHALER #14 INH SCH ×2 (09:28→21:00)
[2018-12-05] MEDS: DOCUSATE SODIUM 100 MG CAPSULE PO SCH ×2 (09:28→21:00)
[2018-12-05] MEDS: LISINOPRIL 5 MG TABLET PO SCH ×3 (09:29→22:12)
[2018-12-05] MEDS: FUROSEMIDE 80 MG TABLET PO SCH ×3 (09:34→22:11)
[2018-12-05] MEDS: MULTIVIT,THER IRON,CA,FA & MIN 1 TABLET PO SCH (09:59)
[2018-12-05] MEDS: HEPARIN 5,000 UNIT/ML VIAL SQ SCH ×2 (09:59→20:57)
[2018-12-05] MEDS: CINACALCET 30 MG TABLET PO SCH ×2 (10:00→20:58)
[2018-12-05] MEDS: ATORVASTATIN 20 MG TABLET PO SCH (10:00)
[2018-12-05] MEDS: SODIUM BICARBONATE 650 MG TABLET PO SCH ×2 (10:00→20:57)
[2018-12-05] MEDS: ACETAMINOPHEN 1,000 MG/100 ML BOTTLE IV PRN ×2 (10:02→21:42)
--- NOTE | 2018-12-05 10:08 | Internal Med Progress Note ---
Medical - PN: Subj Patient information: Note initiated : 12/05/18 at 10:00 am Service Date, if different from initiated Date: [] Patient: Ema Vang a 78 y/o F admitted on 12/04/18 for diarrhea. Chief Complaint: [] Interval history: Ms. Vang is a 78 year old F with history of ESRD on peritoneal dialysis who p resents with worsening weakness secondary to diarrhea that has progressed over the last 4 days. Patient endorses to multiple 8-10 liquid watery stool without associated cramps/mucus or blood. She denies associated fever. She endorses to weakness lightheadedness during activity. Denies associated nausea. She presents to the ER accompanied by her with above symptoms. Initial workup was consistent with C. difficile colitis along with sepsis and leukocytosis and 14,000 and signs of volume depletion. Hospitalist service was consulted. Patient was started on oral vancomycin At the time evaluation patient is alert and oriented. She was able to answer most questions. Notably patient was recently hospitalized between 09/30-10/10 for abdominal pain, dysuria and hematuria and was treated with Rocephin and was subsequently changed to cefepime for MDR UTI. She was subsequently diagnosed with bladder cancer and underwent transurethral resection of moderate size tumor on 11/[address] Almanzar Patient has been recovering fairly well since the procedure until the onset of diarrhea since Monday. 12/05-patient continues to experience profuse watery diarrhea and complains of lightheadedness. Started on banana flakes. Continuing oral vancomycin for C. difficile enterocolitis. White count downtrending from 14,000-10.3. Potassium 3.2 and replacement. Magnesium 0.9 on replacement. Ongoing peritoneal dialysis per nephrology. peritoneal fluid 8 nucleated cell. Continue crystalloids for volume depletion along with R replacement - Constitutional Vitals: Vital Signs Temp Pulse Resp BP Pulse Ox 98.2 F 81 18 88/55 95 12/05/18 08:09 12/04/18 21:47 12/05/18 07:00 12/05/18 08:41 12/05/18 07:00 Period Temp Pulse Resp BP Sys/Hartman Pulse Ox Last 24 Hr 96.9 F-98.9 F 76-108 16-37 82-158/50-79 91-100 Intake and Output 0412/05/18 12/05/18 21:59 05:59 13:59 Intake Total 150 240 Output Total 50 220 Balance 100 20 Weight 145 lb 5 oz Intake & Output: Intake & Output 12/04/18 12/05/18 12/05/18 21:59 05:59 13:59 Intake Total 150 240 Output Total 50 220 Balance 100 20 Weight 145 lb 5 oz Intake: Oral 150 240 Output: Void Amount 50 Stool 120 Emesis 100 Other: Meal sandwich, chesse stick, tea Breakfast Percent of Meal Consumed 100% 50% Feeding Ability Independent Independent Urine Appearance Clear Fem Cath Cloudy Urine Color Bright Yellow Fem Cath Dark Yellow Urine Odor Normal Fem Cath Normal Stool Size Small Small Small Stool Color Brown Brown Brown Stool Consistency Liquid Liquid Liquid # Bowel Movements 1 1 1 # of times incontinent of 1 Bowels General appearance: no acute distress Exam: Alert oriented Nonlabored breathing No anxiety lightheaded during ambulation No telemetry events Medical - PN: Obj Da - Labs CBC & Chem 7: 12/05/18 03:40 12/05/18 03:40 Labs: Abnormal Lab Results 12/05/18 12/05/18 12/04/18 03:40 03:40 15:07 WBC RBC 3.69 L Hgb 9.9 L Hct 30.7 L POC Hct RDW 15.4 H Gran # [place] # (Auto) Monocytes % (Manual) 15 H ESR Sodium 132 L POC Potassium Potassium 3.2 L POC Chloride Chloride 93 L Carbon Dioxide 21 L Anion Gap 18.0 H POC BUN BUN 75 H Creatinine 6.6 H* POC Creatinine Glucose 130 H POC Glucose POC WB Ioniz Calcium Phosphorus 4.8 H Magnesium 0.9 L* Alkaline Phosphatase 139 H Triglycerides 151 H Urine Protein 100 A Urine Occult Blood 0.2 A Ur Leukocyte Esterase 250 A Urine RBC 20 H Urine WBC 29 H Amorphous Crystals Few A Urine Bacteria Few A Hyaline Casts 5 H 12/04/18 12/04/18 12/04/18 12:54 12:50 12:50 WBC 14.0 H RBC Hgb 10.9 L Hct 34.1 L POC Hct 34.0 L RDW 15.4 H Gran # 9.8 H [place] # (Auto) 1.5 H Monocytes % (Manual) ESR 81 H Sodium POC Potassium 3.1 L Potassium POC Chloride 95 L Chloride 93 L Carbon Dioxide Anion Gap 20.0 H POC BUN 78 H BUN 80 H Creatinine 6.8 H* POC Creatinine 7.9 H* Glucose 117 H POC Glucose 123 H POC WB Ioniz Calcium 1.13 L Phosphorus Magnesium Alkaline Phosphatase 154 H Triglycerides Urine Protein Urine Occult Blood Ur Leukocyte Esterase Urine RBC Urine WBC Amorphous Crystals Urine Bacteria Hyaline Casts Meds: Medications Acetaminophen (Tylenol) 650 mg PO Q4-6HP PRN PRN Reason: PAIN/FEVER > 101 Amlodipine Besylate (Norvasc) 10 mg PO QDAY [facility] Last Admin: 12/05/18 09:28 Dose: Not Given Documented by: Atorvastatin Calcium (Lipitor) 20 mg PO QDAY [facility] Last Admin: 12/05/18 07:19 Dose: 25 mg Documented by: Cinacalcet (Sensipar) 60 mg PO DAILY [facility] Cinacalcet (Sensipar) 30 mg PO [facility] Last Admin: 12/04/18 21:42 Dose: 30 mg Documented by: Docusate Sodium (Colace) 100 mg PO BID [facility] Last Admin: 12/05/18 09:28 Dose: Not Given Documented by: Furosemide (Lasix) 120 mg PO BID [facility] Last Admin: 12/05/18 09:34 Dose: Not Given Documented by: Heparin Sodium (Porcine) (Heparin) 5,000 unit SQ Q12 [facility] Last Admin: 12/04/18 21:07 Dose: 5,000 unit Documented by: Acetaminophen (Ofirmev) 1,000 mg in 100 mls @ 200 mls/hr IV Q6HP PRN PRN Reason: PAIN/FEVER > 101 Iron Carb/Multivit/Recreation Counselor/Folic Acid (Multivitamin W/Minerals) 1 tab PO DAILY [facility] Lisinopril (Zestril) 5 mg PO BID [facility] Last Admin: 12/05/18 09:29 Dose: Not Given Documented by: Loperamide HCl (Imodium) 2 mg PO PRN PRN PRN Reason: Diarrhea Ondansetron HCl (Zofran) 4 mg IV Q4-6HP PRN PRN Reason: Nausea And Vomiting Last Admin: 12/05/18 08:00 Dose: 4 mg Documented by: Ondansetron HCl (Zofran Odt) 4 mg [facility] Last Admin: 12/04/18 21:05 Dose: 4 mg Documented by: Ondansetron HCl (Zofran Odt) 8 mg SL Q8HP PRN PRN Reason: Nausea Potassium Chloride (Kdur) 10 meq PO BIDCC [facility] Last Admin: 12/05/18 08:41 Dose: 10 meq Documented by: Fluticasone/Salmeterol (Advair 250-50 Diskus) 1 puff INH BID [facility] Last Admin: 12/05/18 09:28 Dose: Not Given Documented by: Senna/Docusate Sodium (Senna Plus Tablet) 1 tab PO HS [facility] Last Admin: 12/04/18 21:07 Dose: Not Given Documented by: Sevelamer Carbonate (Renvela) 1,600 mg PO TIDCC [facility] Last Admin: 12/05/18 08:41 Dose: 1,600 mg Documented by: Sodium Bicarbonate (Sodium Bicarbonate) 650 mg PO BID [place] Sodium Chloride (Saline Flush) 10 ml IV Q8 [facility] Last Admin: 12/05/18 05:27 Dose: 10 ml Documented by: Trazodone HCl (Desyrel) 50 mg PO QHS [facility] Last Admin: 12/04/18 21:05 Dose: 50 mg Documented by: Vancomycin HCl (Vancomycin Oral Ivonne) 250 mg PO QID [facility]; Protocol Last Admin: 12/04/18 21:08 Dose: 250 mg Documented by: Medical - PN: A/P - Time Spent With Patient Total time spent is greater than 50% in coordination of care (as documented) at patient's floor/unit and/or counseling patient: 25 - 35 minutes (1) Clostridium difficile infection Status: Acute Assessment and plan: * C. difficile enterocolitis with diarrhea- continue oral vancomycin/crystalloids * Sepsis- secondary to C. difficile. Clinical improvement noted. White count downtrending to 10,000 * Hypokalemia and low magnesium-continue replacement. On telemetry monitoring * Acute cystitis- no indication for antibiotics at this time * ESRD on peritoneal dialysis-nephrology on board * History of hypertension -Continue home meds * Hyperlipidemia-continue statin * Full code * Prophylaxis heparin Plan * Continue oral vancomycin for 14 days * Nephrology managing peritoneal dialysis/electrolytes replacement * Continue Crystalloids * Pre-existing medical condition management meds Current Visit: Yes Medical - PN: Qual - VTE Deep Vein Thrombosis/Pulmonary Embolism Present on Admission: No
[2018-12-05] MEDS: VANCOMYCIN ORAL SOL 1,000 MG/10 ML BOTTLE PO SCH ×4 (10:09→21:01)
[2018-12-05 20:34] LABS: Blood Urea Nitrogen 74 mg/dl (8-23)
[2018-12-05] MEDS: traZODone HCL 50 MG TABLET PO SCH (20:59)
[2018-12-05] MEDS: SENNOSIDES/DOCUSATE SODIUM 1 TAB TABLET PO SCH (21:00)
[2018-12-05] MEDS: ONDANSETRON 4 MG ODT TABLET SL SCH (21:03)
[2018-12-05] MEDS ORDERED: POTASSIUM CHLORIDE 20 MEQ TABLET PO ONE (22:42)
[2018-12-05] MEDS: POTASSIUM CHLORIDE 20 MEQ TABLET PO SCH (22:51)
[2018-12-06] MEDS ORDERED: DIGOXIN 500 MCG/2 ML AMPUL IV ONE (00:35)
[2018-12-06] MEDS: 0.9 % SODIUM CHLORIDE 10 ML SYRINGE IV SCH ×3 (05:56→21:16)
[2018-12-06 05:58] LABS: Mean Cell Volume 84.1 fL (80.0-100.0); Mean Corpuscular HGB Conc 32.1 g/dL (31.0-36.0); Platelet Count 273 K/mcL (140-440); RBC 3.52 M/mcL (4.00-5.20); Red Cell Distribution Width 15.2 % (11.5-14.5)
[2018-12-06 06:47] LABS: ALT/SGPT 6 U/l (0-40); Alkaline Phosphatase 141 U/L (39-117); Bilirubin,Direct < 0.2 mg/dL (0.0-0.3); Blood Urea Nitrogen 66 mg/dl (8-23); Gamma Glutamyl Transpeptidase 12 U/L (5-36); Uric Acid 7.6 mg/dL (2.5-8.0)
[2018-12-06 06:48] LABS: Eosinophils % (Manual) 3 % (0-7); Lymphocytes % 13 % (15-49); Monocytes % (Manual) 7 % (1-12); Platelet Estimate NORMAL (NORMAL); RBC Morphology NORMAL (NORMAL); Segmented Neutrophils % 78 % (38-78)
[2018-12-06] MEDS: SEVELAMER 800 MG TABLET PO SCH ×3 (08:27→17:07)
[2018-12-06] MEDS: POTASSIUM CHLORIDE 20 MEQ TABLET PO SCH (08:27)
[2018-12-06] MEDS: CARVEDILOL 12.5 MG TABLET PO SCH ×2 (08:28→08:34)
[2018-12-06] MEDS ORDERED: LOPERAMIDE 2 MG CAPSULE PO PRN ×2 (09:15→10:26)
[2018-12-06] MEDS: ATORVASTATIN 20 MG TABLET PO SCH (09:23)
[2018-12-06] MEDS: SODIUM BICARBONATE 650 MG TABLET PO SCH ×2 (09:23→21:14)
[2018-12-06] MEDS: MULTIVIT,THER IRON,CA,FA & MIN 1 TABLET PO SCH (09:23)
[2018-12-06] MEDS: FLUTICASONE/SALMETEROL 250/50 INHALER #14 INH SCH ×2 (09:24→21:12)
[2018-12-06] MEDS: DOCUSATE SODIUM 100 MG CAPSULE PO SCH ×2 (09:24→21:12)
[2018-12-06] MEDS: CINACALCET 30 MG TABLET PO SCH (09:24)
[2018-12-06] MEDS: HEPARIN 5,000 UNIT/ML VIAL SQ SCH ×2 (09:24→21:15)
[2018-12-06] MEDS: FUROSEMIDE 80 MG TABLET PO SCH (09:24)
[2018-12-06] MEDS: VANCOMYCIN ORAL SOL 1,000 MG/10 ML BOTTLE PO SCH ×4 (09:25→21:15)
[2018-12-06] MEDS: amLODIPine 5 MG TABLET PO SCH (09:25)
[2018-12-06] MEDS: LISINOPRIL 5 MG TABLET PO SCH (09:25)
--- NOTE | 2018-12-06 09:47 | Internal Med Progress Note ---
Medical - PN: Subj Patient information: Note initiated : 12/06/18 at 9:44 am Service Date, if different from initiated Date: [] Patient: Ema Vang a 78 y/o F admitted on 12/04/18 for diarrhea. Chief Complaint: [] Interval history: Ms. Vang is a 78 year old F with history of ESRD on peritoneal dialysis who pr esents with worsening weakness secondary to diarrhea that has progressed over the last 4 days. Patient endorses to multiple 8-10 liquid watery stool without associated cramps/mucus or blood. She denies associated fever. She endorses to weakness lightheadedness during activity. Denies associated nausea. She presents to the ER accompanied by her with above symptoms. Initial workup was consistent with C. difficile colitis along with sepsis and leukocytosis and 14,000 and signs of volume depletion. Hospitalist service was consulted. Patient was started on oral vancomycin At the time evaluation patient is alert and oriented. She was able to answer most questions. Notably patient was recently hospitalized between 09/30-10/10 for abdominal pain, dysuria and hematuria and was treated with Rocephin and was subsequently changed to cefepime for MDR UTI. She was subsequently diagnosed with bladder cancer and underwent transurethral resection of moderate size tumor on 11/[address] Almanzar Patient has been recovering fairly well since the procedure until the onset of diarrhea since Monday. 12/05-patient continues to experience profuse watery diarrhea and complains of lightheadedness. Started on banana flakes. Continuing oral vancomycin for C. difficile enterocolitis. White count downtrending from 14,000-10.3. Potassium 3.2 and replacement. Magnesium 0.9 on replacement. Ongoing peritoneal dialysis per nephrology. peritoneal fluid 8 nucleated cell. Continue crystalloids for volume depletion along with electrolyte replacement 12/06-patient doing well. No overnight events. Diarrhea much improved. 2 episodes of loose stool in the last 12 hours. On oral vancomycin. Electrolytes nearly normalized with replacement. Continue existing treatment. No signs of s epsis. Adequately resuscitated. Possible discharge in 24 hours. - Constitutional Vitals: Vital Signs Temp Pulse Resp BP Pulse Ox 98.1 F 85 18 148/56 95 12/06/18 08:10 12/06/18 08:00 12/06/18 08:00 12/06/18 08:10 12/06/18 08:00 Period Temp Pulse Resp BP Sys/Hartman Pulse Ox Last 24 Hr 97.7 F-98.8 F 74-88 16-20 100-155/45-67 94-98 Intake and Output 12/05/18 12/06/18 12/06/18 21:59 05:59 13:59 Intake Total 480 100 Output Total 100 100 Balance 380 0 Weight 150 lb Intake & Output: Intake & Output 12/05/18 12/06/18 12/06/18 21:59 05:59 13:59 Intake Total 480 100 Output Total 100 100 Balance 380 0 Weight 150 lb Intake: IV 100 Oral 480 Output: Void Amount 100 Stool 100 Other: Meal Dinner Percent of Meal Consumed 50% Feeding Ability Assist with Tray Set Up Urine Appearance Clear Urine Color Straw Stool Size Small Stool Color Green Levine Stool Consistency Liquid # Bowel Movements 1 1 # of times incontinent of 1 Bowels General appearance: cooperative, no acute distress Exam: Alert and oriented Nonlabored breathing Ambulating No anxiety No Lymphedema Medical - PN: Obj Da - Labs CBC & Chem 7: 12/06/18 03:35 12/06/18 03:35 Labs: Abnormal Lab Results 12/06/18 12/06/18 12/05/18 03:35 03:35 19:16 WBC RBC 3.52 L Hgb 9.5 L Hct 29.6 L POC Hct RDW 15.2 H Gran # [place] # (Auto) Lymphocytes % 13 L Monocytes % (Manual) ESR Sodium POC Potassium Potassium 3.2 L POC Chloride Chloride 93 L Carbon Dioxide 20 L Anion Gap 20.0 H 17.0 H POC BUN BUN 66 H 74 H Creatinine 7.3 H* 7.2 H* POC Creatinine Glucose 154 H POC Glucose Calcium 8.4 L 7.7 L POC WB Ioniz Calcium Phosphorus 4.7 H Magnesium 1.5 L Alkaline Phosphatase 141 H Albumin 3.0 L Triglycerides Urine Protein Urine Occult Blood Ur Leukocyte Esterase Urine RBC Urine WBC Amorphous Crystals Urine Bacteria Hyaline Casts 12/05/18 12/05/18 12/04/18 03:40 03:40 15:07 WBC RBC 3.69 L Hgb 9.9 L Hct 30.7 L POC Hct RDW 15.4 H Gran # [place] # (Auto) Lymphocytes % Monocytes % (Manual) 15 H ESR Sodium 132 L POC Potassium Potassium 3.2 L POC Chloride Chloride 93 L Carbon Dioxide 21 L Anion Gap 18.0 H POC BUN BUN 75 H Creatinine 6.6 H* POC Creatinine Glucose 130 H POC Glucose Calcium POC WB Ioniz Calcium Phosphorus 4.8 H Magnesium 0.9 L* Alkaline Phosphatase 139 H Albumin Triglycerides 151 H Urine Protein 100 A Urine Occult Blood 0.2 A Ur Leukocyte Esterase 250 A Urine RBC 20 H Urine WBC 29 H Amorphous Crystals Few A Urine Bacteria Few A Hyaline Casts 5 H 12/04/18 12/04/18 12/04/18 12:54 12:50 12:50 WBC 14.0 H RBC Hgb 10.9 L Hct 34.1 L POC Hct 34.0 L RDW 15.4 H Gran # 9.8 H [place] # (Auto) 1.5 H Lymphocytes % Monocytes % (Manual) ESR 81 H Sodium POC Potassium 3.1 L Potassium POC Chloride 95 L Chloride 93 L Carbon Dioxide Anion Gap 20.0 H POC BUN 78 H BUN 80 H Creatinine 6.8 H* POC Creatinine 7.9 H* Glucose 117 H POC Glucose 123 H Calcium POC WB Ioniz Calcium 1.13 L Phosphorus Magnesium Alkaline Phosphatase 154 H Albumin Triglycerides Urine Protein Urine Occult Blood Ur Leukocyte Esterase Urine RBC Urine WBC Amorphous Crystals Urine Bacteria Hyaline Casts Meds: Medications Acetaminophen (Tylenol) 650 mg PO Q4-6HP PRN PRN Reason: PAIN/FEVER > 101 Amlodipine Besylate (Norvasc) 10 mg PO QDAY [facility] Last Admin: 12/06/18 09:25 Dose: Not Given Documented by: Atorvastatin Calcium (Lipitor) 20 mg PO QDAY [facility] Last Admin: 12/06/18 09:23 Dose: 20 mg Documented by: [facility] Last Admin: 12/06/18 08:34 Dose: Not Given Documented by: Cinacalcet (Sensipar) 60 mg PO DAILY [facility] Last Admin: 12/06/18 09:24 Dose: 60 mg Documented by: Cinacalcet (Sensipar) 30 mg PO [facility] Last Admin: 12/05/18 20:58 Dose: 30 mg Documented by: Docusate Sodium (Colace) 100 mg PO BID [facility] Last Admin: 12/06/18 09:24 Dose: Not Given Documented by: Furosemide (Lasix) 120 mg PO BID [facility] Last Admin: 12/06/18 09:24 Dose: Not Given Documented by: Heparin Sodium (Porcine) (Heparin) 5,000 unit SQ Q12 [facility] Last Admin: 12/06/18 09:24 Dose: 5,000 unit Documented by: Acetaminophen (Ofirmev) 1,000 mg in 100 mls @ 200 mls/hr IV Q6HP PRN PRN Reason: PAIN/FEVER > 101 Last Infusion: 12/05/18 22:13 Dose: Infused Documented by: Iron Carb/Multivit/Automotive Airconditioning Mechanic/Folic Acid (Multivitamin W/Minerals) 1 tab PO DAILY [facility] Last Admin: 12/06/18 09:23 Dose: 1 tab Documented by: Lisinopril (Zestril) 5 mg PO BID [facility] Last Admin: 12/06/18 09:25 Dose: Not Given Documented by: Loperamide HCl (Imodium) 2 mg PO TIDP PRN PRN Reason: Diarrhea Ondansetron HCl (Zofran) 4 mg IV Q4-6HP PRN PRN Reason: Nausea And Vomiting Last Admin: 12/05/18 16:21 Dose: 4 mg Documented by: Ondansetron HCl (Zofran Odt) 4 mg SL [facility] Last Admin: 12/05/18 21:03 Dose: 4 mg Documented by: Ondansetron HCl (Zofran Odt) 8 mg SL Q8HP PRN PRN Reason: Nausea Potassium Chloride (Kdur) 20 meq PO BIDCC [facility] Last Admin: 12/06/18 08:27 Dose: 20 meq Documented by: Fluticasone/Salmeterol (Advair 250-50 Diskus) 1 puff INH BID [facility] Last Admin: 12/06/18 09:24 Dose: Not Given Documented by: Senna/Docusate Sodium (Senna Plus Tablet) 1 tab PO HS [facility] Last Admin: 12/05/18 21:00 Dose: Not Given Documented by: Sevelamer Carbonate (Renvela) 1,600 mg PO TIDCC [facility] Last Admin: 12/06/18 08:27 Dose: 1,600 mg Documented by: Sodium Bicarbonate (Sodium Bicarbonate) 650 mg PO BID [facility] Last Admin: 12/06/18 09:23 Dose: 650 mg Documented by: Sodium Chloride (Saline Flush) 10 ml IV Q8 [facility] Last Admin: 12/06/18 05:56 Dose: 10 ml Documented by: Trazodone HCl (Desyrel) 50 mg PO QHS [facility] Last Admin: 12/05/18 20:59 Dose: 50 mg Documented by: Vancomycin HCl (Vancomycin Oral Ivonne) 250 mg PO QID [facility]; Protocol Last Admin: 12/06/18 09:25 Dose: 250 mg Documented by: Medical - PN: A/P - Time Spent With Patient Total time spent is greater than 50% in coordination of care (as documented) at patient's floor/unit and/or counseling patient: 25 - 35 minutes (1) Clostridium difficile infection Status: Acute Assessment and plan: * C. difficile enterocolitis with diarrhea- clinical improvement noted on oral vancomycin/crystalloids * Sepsis-resolved with white count downtrending from 14-10,000. Secondary to C. difficile. * Volume depletion clinically improved with resolution of lightheadedness dizziness after adequate resuscitation. * Hypokalemia and low magnesium -resolving with replacement. Potassium at 3.3 * Acute cystitis- no indication for antibiotics at this time * ESRD on peritoneal dialysis-nephrology on board * History of hypertension -stable on home meds * Hyperlipidemia-continue statin * Full code * Prophylaxis heparin Plan * Continue oral vancomycin for 14 days * Continue peritoneal dialysis/electrolytes replacement per nephrology * Continue Crystalloids * Pre-existing medical condition management on home medications Current Visit: Yes Medical - PN: Qual - VTE Deep Vein Thrombosis/Pulmonary Embolism Present on Admission: No
[2018-12-06] MEDS ORDERED: ONDANSETRON 4 MG/2 ML VIAL IV PRN (10:26)
[2018-12-06] MEDS ORDERED: ONDANSETRON 4 MG ODT TABLET SL PRN (10:26)
[2018-12-06] MEDS ORDERED: ACETAMINOPHEN 325 MG TABLET PO PRN (10:26)
[2018-12-06] MEDS ORDERED: ACETAMINOPHEN 1,000 MG/100 ML BOTTLE IV PRN (10:26)
[2018-12-06] MEDS ORDERED: amLODIPine 5 MG TABLET PO PRN (12:13)
--- NOTE | 2018-12-06 12:59 | Internal Med Progress Note ---
Medical - PN: Subj Patient information: Note initiated : 12/06/18 at 12:50 pm Service Date, if different from initiated Date: [] Patient: Ema Vang a 78 y/o F admitted on 12/04/18 for diarrhea. Chief Complaint: [] Interval history: Ms. Vang is a 78 year old F with history of ESRD on peritoneal dialysis who p resents with worsening weakness secondary to diarrhea that has progressed over the last 4 days. Patient endorses to multiple 8-10 liquid watery stool without associated cramps/mucus or blood. She denies associated fever. She endorses to weakness lightheadedness during activity. Denies associated nausea. She presents to the ER accompanied by her with above symptoms. Initial workup was consistent with C. difficile colitis along with sepsis and leukocytosis and 14,000 and signs of volume depletion. Hospitalist service was consulted. Patient was started on oral vancomycin At the time evaluation patient is alert and oriented. She was able to answer most questions. Notably patient was recently hospitalized between 09/30-10/10 for abdominal pain, dysuria and hematuria and was treated with Rocephin and was subsequently changed to cefepime for MDR UTI. She was subsequently diagnosed with bladder cancer and underwent transurethral resection of moderate size tumor on 11/[address] Almanzar Patient has been recovering fairly well since the procedure until the onset of diarrhea since Monday. 12/05-patient continues to experience profuse watery diarrhea and complains of lightheadedness. Started on banana flakes. Continuing oral vancomycin for C. difficile enterocolitis. White count downtrending from 14,000-10.3. Potassium 3.2 and replacement. Magnesium 0.9 on replacement. Ongoing peritoneal dialysis per nephrology. peritoneal fluid 8 nucleated cell. Continue crystalloids for volume depletion along with electrolyte replacement 12/06-patient doing well. No overnight events. Diarrhea much improved. 2 episodes of loose stool in the last 12 hours. On oral vancomycin. Electrolytes nearly normalized with replacement. Continue existing treatment. No signs of sepsis. Adequately resuscitated. Possible discharge in 24 hours. 12/07 - Constitutional Vitals: Vital Signs Temp Pulse Resp BP Pulse Ox 98.3 F 85 18 152/62 94 12/06/18 12:00 12/06/18 08:00 12/06/18 12:00 12/06/18 12:00 12/06/18 12:00 Period Temp Pulse Resp BP Sys/Hartman Pulse Ox Last 24 Hr 97.7 F-98.6 F 74-88 16-20 114-155/45-67 94-98 Intake and Output 12/05/18 12/06/18 12/06/18 21:59 05:59 13:59 Intake Total 211 543 5984 Output Total 100 100 100 Balance 380 0 1300 Weight 68.039 kg Intake & Output: Intake & Output 12/05/18 12/06/18 12/06/18 21:59 05:59 13:59 Intake Total 905 985 2166 Output Total 100 100 100 Balance 380 0 1300 Weight 68.039 kg Intake: IV 100 Oral 480 1400 Output: Void Amount 100 Urine/Stool Mix 100 Stool 100 Other: Meal Dinner Breakfast Percent of Meal Consumed 50% 75% Feeding Ability Assist with Tray Set Up Assist with Tray Set Up Urine Appearance Clear Urine Color Straw Stool Size Small Stool Color Brown Green Stool Consistency Liquid # Bowel Movements 1 1 # of times incontinent of 1 Bowels Exam: General: Alert, Awake, No acute Distress Eyes/N/T: EOMI, Head/Neck: neck supple, CV: RRR, 2/6 SM Pulm: Abd: soft, nontender, +BS x4 Ext: no clubbing/cyanosis, trace bilateral lower extremity edema Neuro: Alert, no focal deficits, moves all extremities, Skin: warm/dry Medical - PN: Obj Da - Labs CBC & Chem 7: 12/06/18 03:35 12/06/18 03:35 Labs: Abnormal Lab Results 12/06/18 12/06/18 12/05/18 03:35 03:35 19:16 WBC RBC 3.52 L Hgb 9.5 L Hct 29.6 L POC Hct RDW 15.2 H Gran # [place] # (Auto) Lymphocytes % 13 L Monocytes % (Manual) ESR Sodium POC Potassium Potassium 3.2 L POC Chloride Chloride 93 L Carbon Dioxide 20 L Anion Gap 20.0 H 17.0 H POC BUN BUN 66 H 74 H Creatinine 7.3 H* 7.2 H* POC Creatinine Glucose 154 H POC Glucose Calcium 8.4 L 7.7 L POC WB Ioniz Calcium Phosphorus 4.7 H Magnesium 1.5 L Alkaline Phosphatase 141 H Albumin 3.0 L Triglycerides Urine Protein Urine Occult Blood Ur Leukocyte Esterase Urine RBC Urine WBC Amorphous Crystals Urine Bacteria Hyaline Casts 12/05/18 12/05/18 12/04/18 03:40 03:40 15:07 WBC RBC 3.69 L Hgb 9.9 L Hct 30.7 L POC Hct RDW 15.4 H Gran # [place] # (Auto) Lymphocytes % Monocytes % (Manual) 15 H ESR Sodium 132 L POC Potassium Potassium 3.2 L POC Chloride Chloride 93 L Carbon Dioxide 21 L Anion Gap 18.0 H POC BUN BUN 75 H Creatinine 6.6 H* POC Creatinine Glucose 130 H POC Glucose Calcium POC WB Ioniz Calcium Phosphorus 4.8 H Magnesium 0.9 L* Alkaline Phosphatase 139 H Albumin Triglycerides 151 H Urine Protein 100 A Urine Occult Blood 0.2 A Ur Leukocyte Esterase 250 A Urine RBC 20 H Urine WBC 29 H Amorphous Crystals Few A Urine Bacteria Few A Hyaline Casts 5 H 12/04/18 12/04/18 12/04/18 12:54 12:50 12:50 WBC 14.0 H RBC Hgb 10.9 L Hct 34.1 L POC Hct 34.0 L RDW 15.4 H Gran # 9.8 H [place] # (Auto) 1.5 H Lymphocytes % Monocytes % (Manual) ESR 81 H Sodium POC Potassium 3.1 L Potassium POC Chloride 95 L Chloride 93 L Carbon Dioxide Anion Gap 20.0 H POC BUN 78 H BUN 80 H Creatinine 6.8 H* POC Creatinine 7.9 H* Glucose 117 H POC Glucose 123 H Calcium POC WB Ioniz Calcium 1.13 L Phosphorus Magnesium Alkaline Phosphatase 154 H Albumin Triglycerides Urine Protein Urine Occult Blood Ur Leukocyte Esterase Urine RBC Urine WBC Amorphous Crystals Urine Bacteria Hyaline Casts Meds: Medications Acetaminophen (Tylenol) 650 mg PO Q4-6HP PRN PRN Reason: PAIN/FEVER > 101 Amlodipine Besylate (Norvasc) 5 mg PO QDAY PRN PRN Reason: Blood Pressure - High Atorvastatin Calcium (Lipitor) 20 mg PO QDAY [facility] Cinacalcet (Sensipar) 60 mg PO DAILY [facility] Cinacalcet (Sensipar) 30 mg PO HS [facility] Docusate Sodium (Colace) 100 mg PO BID [facility] Heparin Sodium (Porcine) (Heparin) 5,000 unit SQ Q12 [facility] Acetaminophen (Ofirmev) 1,000 mg in 100 mls @ 200 mls/hr IV Q6HP PRN PRN Reason: PAIN/FEVER > 101 Iron Carb/Multivit/[place]/Folic Acid (Multivitamin W/Minerals) 1 tab PO DAILY S [facility] Loperamide HCl (Imodium) 2 mg PO TIDP PRN PRN Reason: Diarrhea Ondansetron HCl (Zofran) 4 mg IV Q4-6HP PRN PRN Reason: Nausea And Vomiting Ondansetron HCl (Zofran Odt) 8 mg SL Q8HP PRN PRN Reason: Nausea Ondansetron HCl (Zofran Odt) 4 mg SL HS [facility] Potassium Chloride (Kdur) 20 meq PO BIDCC [facility] Fluticasone/Salmeterol (Advair 250-50 Diskus) 1 puff INH BID [facility] Senna/Docusate Sodium (Senna Plus Tablet) 1 tab PO HS [facility] Sevelamer Carbonate (Renvela) 1,600 mg PO TIDCC [facility] Last Admin: 12/06/18 11:56 Dose: 1,600 mg Documented by: Sodium Bicarbonate (Sodium Bicarbonate) 650 mg PO BID [facility] Sodium Chloride (Saline Flush) 10 ml IV Q8 [facility] Trazodone HCl (Desyrel) 50 mg PO QHS [facility] Vancomycin HCl (Vancomycin Oral Ivonne) 250 mg PO QID [facility]SEA; Protocol Medical - PN: A/P - Time Spent With Patient Total time spent is greater than 50% in coordination of care (as documented) at patient's floor/unit and/or counseling patient: - Narrative A/P Narrative: A: *C. difficile enterocolitis: improving *Sepsis: Resolved *Volume depletion: Improved *Hypokalemia/hypomagnesemia: Proved *ESRD 2/2 Polycystic Kidney dz w/PD: follows with Dr. Russ *Anemia, chronic: *DM: diet controlled *COPD (not on home O2, but uses husbands from time to time especially when she has a cold): *Anxiety/depression *HTN/HLD *GERD: P: -Continue oral Vanco for 14 days -Continue peritoneal dialysis/electrolytes replacement per nephrology -s/p IVF -prn nebs, IH's -SSI -ppx: heparin Full code Medical - PN: Qual - VTE Deep Vein Thrombosis/Pulmonary Embolism Present on Admission: No
--- NOTE | 2018-12-06 13:53 | Discharge Summary ---
Medical - DS: Prov Patient information: Note initiated : 12/06/18 at 1:51 pm Service Date, if different from initiated Date: [] Patient: Ema Vang 78 y/o F admitted on 12/04/18 for diarrhea. Chief Complaint: [] Date of admission: 12/04/18 19:22 Discharge date: 12/07/18 Primary care physician: Sky Ceja Consults: 12/04/18 Consult to Physician [CONS] Stat Comment: Consulting Provider: Dalton Buck Reason For Exam: Physician to Consult Consult to Physician [CONS] Stat Comment: Consulting Provider: Kavon Gorman Reason For Exam: Physician to Consult 12/04/18 19:32 Consult to Physician [CONS] Routine Comment: Consulting Provider: Kavon Gorman Reason For Exam: Physician to Consult Medical - DS: Meds - Discharge Medications Prescriptions: Vancomycin Oral Ivonne 250 mg PO QID #1 bottle Active and Home Medications: Home Medications carvedilol 25 mg tablet 25 mg PO BIDCC tab 01/29/15 [History Confirmed 12/05/18 Last Taken 12/04/18 09:00] gentamicin 0.1 % topical cream 1 applic TOPICAL QDAY #30 g 10/26/17 [Rx Confirmed 12/04/18 Last Taken 12/04/18 09:00] trazodone 50 mg tablet 50 mg PO QHS #90 tab 07/09/18 [Rx Confirmed 12/04/18 Last Taken 12/03/18 21:00] Cinacalcet [Sensipar] 30 mg PO HS #0 07/30/18 [History Confirmed 12/05/18 Last Taken 12/03/18 21:00] Cinacalcet [Sensipar] 60 mg PO DAILY 07/30/18 [History Confirmed 12/04/18 Last Taken 12/04/18 09:00] Lidocaine 1 patch TOPICAL PRN PRN 07/30/18 [History Confirmed 12/04/18 Last Taken 11/07/18] Lisinopril [Zestril] 5 mg PO BID 07/30/18 [History Confirmed 12/04/18 Last Taken 12/03/18 09:00] Loperamide [Imodium] 2 mg PO PRN PRN #30 cap 08/02/18 [Rx Confirmed 12/04/18 Last Taken 12/04/18 06:00] atorvastatin 20 mg tablet 20 mg PO QDAY #90 tab 08/27/18 [Rx Confirmed 12/04/18 Last Taken 12/04/18 09:00] amlodipine 5 mg tablet 10 mg PO QDAY #180 tab 09/07/18 [Rx Confirmed 12/04/18 Last Taken 12/03/18] furosemide 80 mg tablet 120 mg PO BID #270 tab 09/27/18 [Rx Confirmed 12/04/18 Last Taken 12/04/18 09:00] Sevelamer HCl [Renagel] 1,600 mg PO TIDCC 10/30/18 [History Confirmed 12/05/18 Last Taken 12/04/18 09:00] Fluticasone/Salmeterol [Advair 250-50 Diskus] 1 puff INH BID 12/04/18 [History Confirmed 12/04/18 Last Taken 12/03/18 21:00] Ondansetron [Zofran ODT] 8 mg SL Q8HP PRN 12/04/18 [History Confirmed 12/05/18 Last Taken 11/26/18 21:00] Home Medications gentamicin 0.1 % topical cream 1 applic TOPICAL QDAY #30 g 10/26/17 [Rx Confirmed 12/04/18 Last Taken 12/04/18 09:00] trazodone 50 mg tablet 50 mg PO QHS #90 tab 07/09/18 [Rx Confirmed 12/04/18 Last Taken 12/03/18 21:00] Cinacalcet [Sensipar] 30 mg PO HS #0 07/30/18 [History Confirmed 12/05/18 Last Taken 12/03/18 21:00] Cinacalcet [Sensipar] 60 mg PO DAILY 07/30/18 [History Confirmed 12/04/18 Last Taken 12/04/18 09:00] Lidocaine 1 patch TOPICAL PRN PRN 07/30/18 [History Confirmed 12/04/18 Last Taken 11/07/18] Loperamide [Imodium] 2 mg PO PRN PRN #30 cap 08/02/18 [Rx Confirmed 12/04/18 Last Taken 12/04/18 06:00] amlodipine 5 mg tablet 10 mg PO QDAY #180 tab 09/07/18 [Rx Confirmed 12/04/18 Last Taken 12/03/18] Sevelamer HCl [Renagel] 1,600 mg PO TIDCC 10/30/18 [History Confirmed 12/05/18 Last Taken 12/04/18 09:00] Fluticasone/Salmeterol [Advair 250-50 Diskus] 1 puff INH BID 12/04/18 [History Confirmed 12/04/18 Last Taken 12/03/18 21:00] Ondansetron [Zofran ODT] 8 mg SL Q8HP PRN 12/04/18 [History Confirmed 12/05/18 Last Taken 11/26/18 21:00] Vancomycin Oral Ivonne 250 mg PO QID #1 bottle 12/06/18 [Rx Last Taken Unknown] Medical - DS: Hosp Hospital course: Mr. Vang is a 78 year old F Ms. Vang is a 78 year old F with history of ESRD on peritoneal dialysis who presents with worsening weakness secondary to diarrhea that has progressed over the last 4 days. Patient endorses to multiple 8-10 liquid watery stool without associated cramps/mucus or blood. She denies associated fever. She endorses to weakness lightheadedness during activity. Denies associated nausea. She presents to the ER accompanied by her with above symptoms. Initial workup was consistent with C. difficile colitis along with sepsis and leukocytosis and 14,000 and signs of volume depletion. Hospitalist service was consulted. Patient was started on oral vancomycin At the time evaluation patient is alert and oriented. She was able to answer most questions. Notably patient was recently hospitalized between 09/30-10/10 for abdominal pain, dysuria and hematuria and was treated with Rocephin and was subsequently changed to cefepime for MDR UTI. She was subsequently diagnosed with bladder cancer and underwent transurethral resection of moderate size tumor on 11/[address] Almanzar Patient has been recovering fairly well since the procedure until the onset of diarrhea since Monday. 12/05-patient continues to experience profuse watery diarrhea and complains of lightheadedness. Started on banana flakes. Continuing oral vancomycin for C. difficile enterocolitis. White count downtrending from 14,000-10.3. Potassium 3.2 and replacement. Magnesium 0.9 on replacement. Ongoing peritoneal dialysis per nephrology. peritoneal fluid 8 nucleated cell. Continue crystalloids for volume depletion along with electrolyte replacement 12/06-patient doing well. No overnight events. Diarrhea much improved. 2 epi sodes of loose stool in the last 12 hours. On oral vancomycin. Electrolytes nearly normalized with replacement. Continue existing treatment. No signs of sepsis. Adequately resuscitated. Possible discharge in 24 hours. 12/07 Feeling much better. Diarrhea significantly improved. Stable for discharge Discharge diagnosis: C. difficile colitis sepsis volume depletion Secondary discharge diagnosis: Electrolyte abnormalities end-stage renal disease diabetes anemia COPD anxiety depression - Time Spent with Patient Total time spent providing and/or coordinating discharge services: Greater than 30 minutes Medical - DS: Exam - Constitutional Vitals: Vital Signs Temp Pulse Resp BP BP BP Pulse Ox 12/06/18 12:00 98.3 F 18 152/62 94 12/06/18 08:10 98.1 F 148/56 12/06/18 08:00 98.3 F 85 18 155/65 118/50 95 12/06/18 04:00 97.7 F 74 18 119/63 98 12/06/18 00:00 98.3 F 74 16 114/45 96 12/05/18 20:26 98.5 F 138/67 12/05/18 20:00 98.6 F 88 20 137/64 94 12/05/18 16:00 98.4 F 16 128/62 95 Intake and Output 12/05/18 12/06/18 12/06/18 21:59 05:59 13:59 Intake Total 895 851 2207 Output Total 100 100 200 Balance 380 0 2200 Intake: IV 100 Oral 480 2400 Output: Void Amount 100 100 Urine/Stool Mix 100 Stool 100 Other: Meal Dinner Lunch Percent of Meal Consumed 50% 75% Feeding Ability Assist with Tray Set Up Assist with Tray Set Up Urine Appearance Clear Urine Color Straw Stool Size Small Stool Color Brown Green Stool Consistency Liquid # Bowel Movements 1 1 # of times incontinent of 1 Bowels Weight 68.039 kg 68.039 kg Patient Weight 12/07/18 05:59 Weight 68.039 kg Medical - DS: Data Labs on day of discharge: Labs from last 24 hours 12/06/18 12/06/18 12/05/18 03:35 03:35 19:16 WBC 10.4 RBC 3.52 L Hgb 9.5 L Hct 29.6 L MCV 84.1 MCH 27.0 MCHC 32.1 RDW 15.2 H Plt Count 273 MPV 8.6 Total Counted 150 Seg Neutrophils % 78 Band Neutrophils % Not Reportable Lymphocytes % 13 L Monocytes % (Manual) 7 Eosinophils % (Manual) 3 Platelet Estimate Normal RBC Morphology Normal Sodium 136 135 Potassium 3.3 3.2 L Chloride 96 93 L Carbon Dioxide 20 L 25 Anion Gap 20.0 H 17.0 H BUN 66 H 74 H Creatinine 7.3 H* 7.2 H* GFR Calculation 5 5 Glucose 102 154 H Uric Acid 7.6 Calcium 8.4 L 7.7 L Phosphorus 4.7 H Magnesium 2.3 1.5 L Total Bilirubin 0.2 Direct Bilirubin < 0.2 GGT 12 AST 12 ALT 6 Alkaline Phosphatase 141 H Lactate Dehydrogenase 204 Total Protein 6.1 Albumin 3.0 L Globulin 3.1 Albumin/Globulin Ratio 1.0 Triglycerides 140 Preliminary micro results at discharge 12/04/18 16:57 Anaerobic Culture - Preliminary Peritoneal Dialysis Fluid Aerobic Culture - Preliminary 12/04/18 13:57 Stool Culture - Preliminary Rectum Medical - DS: A/P - Patient/Caregiver Discharge Instructions Activity: increase activity as tolerated Diet: Renal/Consistent Carbs Prescriptions: Vancomycin Oral Ivonne 250 mg PO QID #1 bottle - Follow up Plan Follow up with: Sky Ceja MD [Primary Care Provider] - Fany Russ MD [Physician] - Disposition: Home Health Service Prognosis: Fair Rehab Potential: Fair Medical - DS: Qual - VTE Deep Vein Thrombosis/Pulmonary Embolism Present on Admission: No
[2018-12-06 16:16] LABS: Blood Urea Nitrogen 65 mg/dl (8-23)
--- NOTE | 2018-12-06 16:38 | Nephrology Progress Note ---
Subjective Patient information: Note initiated : 12/06/18 at 4:36 pm Service Date, if different from initiated Date: [] Patient: Ema Vang 78 y/o F admitted on 12/04/18 for diarrhea. Chief Complaint: [] Principal diagnosis: C diff colitis Interval history: Patient admitted with C diff colitis she is been treated with po vancomycin and her diarrhea is much improved 2 episodes of loose stools this am and since then none able to tolerate po intake no SOB, CP chelsey nicolas no issues with PD overnight no other concerns Pertinent ROS: as above Objective - Vital Signs Vital signs: Vital Signs Temp Pulse Resp BP BP BP Pulse Ox 12/06/18 15:32 98.2 F 75 20 131/67 95 12/06/18 12:00 98.3 F 18 152/62 94 12/06/18 08:10 98.1 F 148/56 12/06/18 08:00 98.3 F 85 18 155/65 118/50 95 12/06/18 04:00 97.7 F 74 18 119/63 98 12/06/18 00:00 98.3 F 74 16 114/45 96 12/05/18 20:26 98.5 F 138/67 12/05/18 20:00 98.6 F 88 20 137/64 94 Intake and Output 12/06/18 12/06/18 12/06/18 05:59 13:59 21:59 Intake Total 100 2400 Output Total 100 200 Balance 0 2200 Intake: IV 100 Oral 2400 Output: Void Amount 100 Urine/Stool Mix 100 Stool 100 Other: Meal Lunch Percent of Meal Consumed 75% Feeding Ability Assist with Tray Set Up Stool Size Small Stool Color Brown Green Stool Consistency Liquid # Bowel Movements 1 1 # of times incontinent of 1 Bowels Weight 150 lb Patient Weight 12/07/18 05:59 Weight 150 lb Intake & Output: Intake & Output 12/06/18 12/06/18 12/06/18 05:59 13:59 21:59 Intake Total 100 2400 Output Total 100 200 Balance 0 2200 Weight 150 lb Intake: IV 100 Oral 2400 Output: Void Amount 100 Urine/Stool Mix 100 Stool 100 Other: Meal Lunch Percent of Meal Consumed 75% Feeding Ability Assist with Tray Set Up Stool Size Small Stool Color Brown Green Stool Consistency Liquid # Bowel Movements 1 1 # of times incontinent of 1 Bowels - General Appearance General appearance: appears started age, frail EENT: mucous membranes moist Neck: no JVD Respiratory: clear Cardiology: no rub, no edema, regular rate, regular rhythm Gastrointestinal: no tenderness, no guarding Integumentary: warm and dry Neurologic: no focal deficit Musculoskeletal: no deformities, no erythema Psychiatric: mood/affect appropriate - Lab 12/06/18 03:35 12/06/18 15:15 Most recent lab results Calcium 7.9 mg/dl (8.6-10.4) L 12/06/18 15:15 Phosphorus 4.7 mg/dL (2.7-4.5) H 12/06/18 03:35 Magnesium 2.3 mg/dL (1.6-2.5) 12/06/18 03:35 Assessment and Plan (1) Anemia due to end stage renal disease Status: Chronic Priority: Medium (2) Secondary hyperparathyroidism of renal origin Status: Chronic Priority: Medium (3) Clostridium difficile infection Status: Acute (4) ESRD on peritoneal dialysis Status: Chronic Priority: Medium - Narrative A/P Narrative: Improving diarrhea serum electrolytes stable will continue PD with 1.5% dextrose PD fluid, total of 7200 cc total duration 9 hrs, fill volume 1800ml will start on nepro given albumin trend, she will continue with IPN on discharge will give aranesp on discharge as well I have cut back on her potassium chloride replacement and if this remains normal will hold it as this should not be an issue if the patient has good oral intake and no more diarrhea continue oral vancomycin, C diff managed by hospitalist I am holding her antihypertensives and diuretics, she has not been taking them at home recently I appreciate hospitalist help in managing this patient
[2018-12-06] MEDS: POTASSIUM CHLORIDE 10 MEQ TABLET PO SCH (17:09)
[2018-12-06] MEDS ORDERED: CARVEDILOL 12.5 MG TABLET PO SCH (17:30)
[2018-12-06] MEDS ORDERED: POTASSIUM CHLORIDE 20 MEQ TABLET PO SCH (17:30)
[2018-12-06] MEDS ORDERED: traZODone HCL 50 MG TABLET PO SCH (21:00)
[2018-12-06] MEDS ORDERED: ONDANSETRON 4 MG ODT TABLET SL SCH (21:00)
[2018-12-06] MEDS ORDERED: SENNOSIDES/DOCUSATE SODIUM 1 TAB TABLET PO SCH (21:00)
[2018-12-06] MEDS ORDERED: CINACALCET 30 MG TABLET PO SCH (21:00)
[2018-12-06] MEDS ORDERED: LISINOPRIL 5 MG TABLET PO SCH (21:00)
[2018-12-06] MEDS ORDERED: FUROSEMIDE 80 MG TABLET PO SCH (21:00)
[2018-12-07] MEDS: 0.9 % SODIUM CHLORIDE 10 ML SYRINGE IV SCH (05:46)
[2018-12-07 06:05] LABS: Mean Cell Volume 84.1 fL (80.0-100.0); Mean Corpuscular HGB Conc 32.2 g/dL (31.0-36.0); Platelet Count 269 K/mcL (140-440); RBC 3.36 M/mcL (4.00-5.20)
[2018-12-07 06:27] LABS: ALT/SGPT 7 U/l (0-40); Albumin 3.2 gm/dL (3.2-5.2); Albumin/Globulin Ratio 1.1 (1.0-2.3); Alkaline Phosphatase 149 U/L (39-117); Bilirubin,Direct < 0.2 mg/dL (0.0-0.3); Blood Urea Nitrogen 58 mg/dl (8-23); Gamma Glutamyl Transpeptidase 12 U/L (5-36); Uric Acid 6.6 mg/dL (2.5-8.0)
[2018-12-07 07:18] LABS: Eosinophils % (Manual) 6 % (0-7); Lymphocytes % 26 % (15-49); Monocytes % (Manual) 5 % (1-12); Ovalocytes OCC (NONE SEEN); Platelet Estimate NORMAL (NORMAL); RBC Morphology ABNORM (NORMAL); Segmented Neutrophils % 63 % (38-78)
[2018-12-07] MEDS: POTASSIUM CHLORIDE 10 MEQ TABLET PO SCH (08:10)
[2018-12-07] MEDS: SEVELAMER 800 MG TABLET PO SCH ×2 (08:10→12:34)
[2018-12-07] MEDS ORDERED: ATORVASTATIN 20 MG TABLET PO SCH (09:00)
[2018-12-07] MEDS ORDERED: MULTIVIT,THER IRON,CA,FA & MIN 1 TABLET PO SCH (09:00)
[2018-12-07] MEDS ORDERED: CINACALCET 30 MG TABLET PO SCH (09:00)
[2018-12-07] MEDS ORDERED: amLODIPine 5 MG TABLET PO SCH (09:00)
[2018-12-07] MEDS: SODIUM BICARBONATE 650 MG TABLET PO SCH (09:51)
[2018-12-07] MEDS: HEPARIN 5,000 UNIT/ML VIAL SQ SCH (09:52)
[2018-12-07] MEDS: VANCOMYCIN ORAL SOL 1,000 MG/10 ML BOTTLE PO SCH (10:09)
[2018-12-07] MEDS: FLUTICASONE/SALMETEROL 250/50 INHALER #14 INH SCH (11:26)
[2018-12-07] MEDS: DOCUSATE SODIUM 100 MG CAPSULE PO SCH (11:27)
== END 2018-12-07 12:40 | disposition home health service (06) | DRG 871 ==
LOC: ED 12:13 → ICU 19:22 → MEDSUR 12-06 13:25
PROVIDERS: ADMIT Internal Medicine; ATTEND Internal Medicine

== ENCOUNTER 2018-12-17 12:24 | Inpatient (IN) ==
[2018-12-17] MEDS ORDERED: ACETAMINOPHEN 1,000 MG/100 ML BOTTLE IV PRN (13:33)
--- NOTE | 2018-12-17 15:28 | Nephrology Progress Note ---
Subjective Patient information: Note initiated : 12/17/18 at 3:25 pm Service Date, if different from initiated Date: [] Patient: Ema Vang a 78 y/o F admitted on 12/17/18 for N/V/D, Dehydration. Chief Complaint: [] Principal diagnosis: diarrhea Interval history: Patient is a 78 y/o pleasant white female with multiple medical issues including ESRD on PD who presented to dialysis clinic today for monthly follow up she c/o ongoing diarrhea, she was diagnosed with c diff colitis and treated with nino vancomycin, she states her diarrhea never resolved, she has 3-4 loose stools. She also has intermittent nausea, vomiting she has poor appetite his BP is low normal and she was noted to be tachycardic and hence requested hospitalization again to evaluate this further and treatment no abdominal pain, fever she does have tenesmus no other concerns No concerns with PD though Pertinent ROS: as above Objective - Vital Signs Vital signs: Vital Signs Temp Pulse Resp BP Pulse Ox 12/17/18 12:58 98.5 F 85 16 112/62 95 Intake and Output 12/17/18 12/17/18 12/17/18 05:59 13:59 21:59 Other: Weight 148 lb Patient Weight 12/18/18 05:59 Weight 148 lb Intake & Output: Intake & Output 12/17/18 12/17/18 12/17/18 05:59 13:59 21:59 Weight 148 lb - General Appearance General appearance: appears started age, chronically ill EENT: mucous membranes dry Neck: no JVD Respiratory: clear Cardiology: no rub, no edema, regular rate (tachycardic ), regular rhythm Gastrointestinal: no tenderness (exit site is clean with no concerns), no guarding Integumentary: no rash, warm and dry Neurologic: no focal deficit, alert and oriented x3 Musculoskeletal: no erythema, no cyanosis Psychiatric: mood/affect appropriate Assessment and Plan (1) Clostridium difficile infection Status: Acute (2) ESRD on peritoneal dialysis Status: Chronic Priority: Medium - Narrative A/P Narrative: Patient will continue with PD tonight with 1.5% dianeal solution, 4 cycles, fill volume 1800ml, 2hrs dwell time agree with IVF Diarrhea management per hospitalist labs ordered to ensure stable electrolytes, will follow Appreciate hospitalist team help with managing this patient
[2018-12-17] MEDS: 0.9 % SODIUM CHLORIDE 1,000 ML IV SCH (15:30)
[2018-12-17] MEDS: 0.9 % SODIUM CHLORIDE 10 ML SYRINGE IV SCH ×2 (15:38→23:08)
--- NOTE | 2018-12-17 16:20 | Internal Med History&Physical ---
Medical - H&P: [facility] Patient information: Note initiated : 12/17/18 at 4:20 pm Service Date, if different from initiated Date: [] Patient: Ema Vang a 78 y/o F admitted on 12/17/18 for N/V/D, Dehydration. Chief Complaint: [] Chief complaint: persistent diarrhea History of present illness: Ms. Vang is a 78 year old F with a history of ESRD on PD and recent history of recurrent diarrhea since July was admitted 3 weeks ago for diarrhea likely secondary to C. difficile. Patient completed 2 weeks treatment on oral vancomycin however she continues to experience persistent stooling over 8-10 times a day watery without fever or cramps or blood. She was referred by hooker laster for further evaluation. Patient will be admitted under observation for further evaluation of persistent diarrhea secondary to likely C. difficile failed treatment. At the time of evaluation patient is alert oriented. She denies active distress. She denies fever chills or abdominal pain/cramps. Denies shortness of breath. She endorses to normal mucoid watery high volume diarrhea 8-10 times a day. She denies associated nausea or headache. Review of systems 10 point review of system was performed and is negative except for discussed above Medical - H&P: PMH Medical history: Abdominal pain (Acute) Urinary retention (Acute) Hypertensive renal disease (Chronic) Proteinuria (Chronic) Edema (Chronic) Secondary hyperparathyroidism of renal origin (Chronic) Diabetes mellitus (Chronic) Chronic kidney disease, stage V (Chronic) Vitamin D deficiency (Acute) Sinusitis, chronic (Acute) Seborrheic keratosis (Acute) Renal osteodystrophy (Acute) Overweight (Acute) Osteoporosis (Acute) Obesity (Acute) Insomnia (Chronic) Hyposmolality and/or hyponatremia (Acute) Disorder of magnesium metabolism (Acute) Hypertensive heart disease, benign w/chronic kidney disease stage 1-4 (Acute) Hyperparathyroidism, primary (Acute) Hyperparathyroidism (Acute) Hyperlipidemia (Acute) Hyperkalemia (Acute) Hypercalcemia (Acute) Hypertension (Acute) Gastroesophageal reflux (Acute) Diabetes mellitus, type II (Acute) Depression (Acute) COPD (chronic obstructive pulmonary disease) (Acute) Chronic kidney disease, stage IV (severe) (Acute) Anxiety (Acute) Anemia, iron deficiency (Acute) 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) Acute renal disease (Acute) Past Surgical History Hx of hysterectomy (Acute) Hx of esophagogastroduodenoscopy (Acute) Low back surgery Family History mother Rheumatoid arthritis Malignant neoplasm of colon brother Diabetes mellitus Morbid obesity sister x2 Diabetes mellitus sister Parkinson's Disease Pneumonia, Onset Age: 59 Sister Renal failure Social History Quit smoking 10 years ago denies alcohol use does not use a cane or walker lives at home with her Medical - H&P: Meds Home Medications Medication Instructions Recorded Confirmed Type gentamicin 0.1 % topical cream 1 applic TOPICAL QDAY #30 g 10/26/17 12/17/18 Rx Lidocaine 1 patch TOPICAL PRN PRN 07/30/18 12/17/18 History Loperamide [Imodium] 2 mg PO PRN PRN #30 cap 08/02/18 12/17/18 Rx Sevelamer HCl [Renagel] 800 mg PO TIDCC 10/30/18 12/17/18 History Fluticasone/Salmeterol [Advair 1 puff INH Q12 12/04/18 12/17/18 History 250-50 Diskus] Amino AC/Protein Hydr/Whey Pro 30 ml PO QDAY 12/17/18 12/17/18 History [Prosource Tf Liquid Packet] Atorvastatin [Lipitor] 20 mg PO DAILY 12/17/18 12/17/18 History Cinacalcet HCl [Sensipar] 60 mg PO QDAY 12/17/18 12/17/18 History Cinacalcet [Sensipar] 30 mg PO QPM 12/17/18 12/17/18 History Folic Acid/Vitamin B Comp W-C 1 tab PO DAILY 12/17/18 12/17/18 History [Diatx] Allergies Allergy/AdvReac Type Severity Reaction Status Date / Time Penicillins Allergy Mild Hives Verified 11/08/18 09:35 ciprofloxacin [From Cipro] AdvReac Mild "Intoleranc Verified 11/08/18 09:35 e codeine AdvReac Mild Vomiting Verified 11/08/18 09:35 hydrocodone AdvReac Mild Vomiting Verified 11/08/18 09:35 tramadol AdvReac Unknown Unknown Verified 11/08/18 09:35 Medical - H&P: Exam - Constitutional Vitals: Temp Pulse Resp BP Pulse Ox 98.5 F 85 16 112/62 95 12/17/18 12:58 12/17/18 12:58 12/17/18 12:58 12/17/18 12:58 12/17/18 12:58 Exam: Alert oriented Oral cavity dry No ear or nose discharge Head normocephalic S1 and S2 regular Chest clear to auscultation Skin no suspicious lesion Nondistended soft abdomen, peritoneal dialysis catheter suprapubic area No lymphedema, ambulating Psych alert cooperative Neuro normal higher function Medical - H&P: Reslt - Labs CBC & Chem 7: 12/18/18 04:06 12/18/18 04:06 Medical - H&P: A/P (1) Diarrhea Current visit: No Status: Chronic * Severe diarrhea -suspect C. difficile relapse/failed treatment .repeat C. difficile sent. Start fidaxomycin. Check stool osmolarity and evaluated for secretory versus osmotic diarrhea given chronicity. We will need endoscopy evaluation. * Hypokalemia continue replacement * Volume depletion continue crystalloids * ESRD on peritoneal dialysis-nephrology consulted * Hyperlipidemia-start home dose statin * Full code * Prophylaxis heparin Plan * Inpatient management * Crystalloids/electrolyte replacement * Fidaxomycin * Nephrology consult * GI consult for endoscopy evaluation * Diarrhea workup * Pre-existing medical condition management meds
[2018-12-17 16:22] LABS: Basophils # (Auto) 0 K/mcL (0.0-0.3); Basophils % (Auto) 0.3 % (0.0-2.0); Eosinophils # (Auto) 0.1 K/mcL (0.0-0.7); Granulocytes % (Auto) 56.7 % (38.0-78.0); Lymphocytes # (Auto) 1.6 K/mcL (1.5-4.8); Lymphocytes % (Auto) 26.2 % (15.5-49.0); Mean Cell Volume 83.8 fL (80.0-100.0); Mean Corpuscular HGB Conc 32.4 g/dL (31.0-36.0); Monocytes % (Auto) 15.8 % (1.0-12.0); Platelet Count 290 K/mcL (140-440); RBC 3.67 M/mcL (4.00-5.20); Red Cell Distribution Width 16.2 % (11.5-14.5)
[2018-12-17 16:43] LABS: Blood Urea Nitrogen 63 mg/dl (8-23)
[2018-12-17] MEDS: SEVELAMER 800 MG TABLET PO SCH (18:06)
[2018-12-17] MEDS ORDERED: POTASSIUM CHLORIDE 20 MEQ TABLET PO ONE (18:14)
[2018-12-17] MEDS ORDERED: FIDAXOMICIN 200 MG TABLET PO SCH (21:00)
[2018-12-17] MEDS: HEPARIN 5,000 UNIT/ML VIAL SQ SCH (21:43)
[2018-12-17] MEDS: CINACALCET 30 MG TABLET PO SCH (21:43)
[2018-12-17] MEDS: ATORVASTATIN 20 MG TABLET PO SCH (21:43)
[2018-12-17] MEDS: FLUTICASONE/SALMETEROL 250/50 INHALER #14 INH SCH (21:45)
[2018-12-18] MEDS: ACETAMINOPHEN 325 MG TABLET PO PRN ×2 (02:46→23:59)
[2018-12-18] MEDS: 0.9 % SODIUM CHLORIDE 10 ML SYRINGE IV SCH ×3 (04:59→22:53)
[2018-12-18 06:15] LABS: Mean Cell Volume 84.1 fL (80.0-100.0); Mean Corpuscular HGB Conc 31.8 g/dL (31.0-36.0); Platelet Count 247 K/mcL (140-440); RBC 3.29 M/mcL (4.00-5.20); Red Cell Distribution Width 16.1 % (11.5-14.5)
[2018-12-18 06:47] LABS: ALT/SGPT 9 U/l (0-40); Albumin 2.9 gm/dL (3.2-5.2); Albumin/Globulin Ratio 1.1 (1.0-2.3); Alkaline Phosphatase 148 U/L (39-117); Bilirubin,Direct < 0.2 mg/dL (0.0-0.3); Blood Urea Nitrogen 55 mg/dl (8-23); Gamma Glutamyl Transpeptidase 11 U/L (5-36); Uric Acid 6.5 mg/dL (2.5-8.0)
[2018-12-18] MEDS: SEVELAMER 800 MG TABLET PO SCH ×3 (07:38→16:49)
[2018-12-18] MEDS: CINACALCET 30 MG TABLET PO SCH ×2 (07:39→21:47)
[2018-12-18 08:00] LABS: Anisocytosis 1+ (NONE SEEN); Band Neutrophils % 2 % (0-10); Eosinophils % (Manual) 1 % (0-7); Lymphocytes % 35 % (15-49); Monocytes % (Manual) 14 % (1-12); Platelet Estimate NORMAL (NORMAL); RBC Morphology ABNORM (NORMAL); Segmented Neutrophils % 48 % (38-78)
[2018-12-18] MEDS ORDERED: MAGNESIUM SULFATE 2 GM/50 ML BAG IV ONE (08:41)
[2018-12-18] MEDS: HEPARIN 5,000 UNIT/ML VIAL SQ SCH ×2 (08:58→21:47)
[2018-12-18] MEDS: FOLIC ACID/VITAMIN B COMP W-C 1 TAB TABLET PO SCH (08:58)
[2018-12-18] MEDS ORDERED: [UNRECOGNIZED DRUG - OTHER] PO SCH (09:00)
[2018-12-18] MEDS ORDERED: AMINO AC PO SCH (09:00)
[2018-12-18] MEDS ORDERED: PROTEIN HYDR PO SCH (09:00)
[2018-12-18] MEDS ORDERED: WHEY PRO PO SCH (09:00)
[2018-12-18] MEDS: FLUTICASONE/SALMETEROL 250/50 INHALER #14 INH SCH ×2 (09:00→21:46)
[2018-12-18] MEDS: LOPERAMIDE 2 MG CAPSULE PO PRN ×2 (09:18→17:56)
--- NOTE | 2018-12-18 10:35 | Internal Med Progress Note ---
Medical - PN: Subj Patient information: Note initiated : 12/18/18 at 10:29 am Service Date, if different from initiated Date: [] Patient: Ema Vang a 78 y/o F admitted on 12/17/18 for N/V/D, Dehydration. Chief Complaint: [] Interval history: Ms. Vang is a 78 year old F with a history of ESRD on PD and recent history of recurrent diarrhea since July was admitted 3 weeks ago for diarrhea likely secondary to C. difficile. Patient completed 2 weeks treatment on oral vancomycin however she continues to experience persistent stooling over 8-10 times a day watery without fever or cramps or blood. She was referred by digital media director for further evaluation. Patient will be admitted under observation for further evaluation of persistent diarrhea secondary to likely C. difficile failed treatment. At the time of evaluation patient is alert oriented. She denies active distress. She denies fever chills or abdominal pain/cramps. Denies shortness of breath. She endorses to normal mucoid watery high volume diarrhea 8-10 times a day. She denies associated nausea or headache. She denies recent laxative use or history of lactose intolerance. 12/18-patient doing well. No overnight events except for persistent painless watery diarrhea. C. difficile negative. Fidaxomycin discontinued. Diarrhea workup ongoing. Colonoscopy scheduled on 12/20 Dr. Quiroz - Constitutional Vitals: Vital Signs Temp Pulse Resp BP Pulse Ox 98.7 F 85 16 119/62 96 12/18/18 08:21 12/18/18 07:56 12/18/18 07:56 12/18/18 08:21 12/18/18 07:56 Period Temp Pulse Resp BP Sys/Hartman Pulse Ox Last 24 Hr 97.4 F-98.7 F 82-100 16-22 112-137/59-77 93-96 Intake and Output 12/17/18 12/18/18 12/18/18 21:59 05:59 13:59 Intake Total 200 325 Output Total 100 150 100 Balance 100 175 -100 Weight 149 lb Intake & Output: Intake & Output 12/17/18 12/18/18 12/18/18 21:59 05:59 13:59 Intake Total 200 325 Output Total 100 150 100 Balance 100 175 -100 Weight 149 lb Intake: Oral 200 325 Output: Void Amount 100 50 Urine/Stool Mix 100 100 Other: Meal Lunch Percent of Meal Consumed 100% Feeding Ability Independent Urine Appearance Clear Clear Urine Color Bright Yellow Pale Urine Odor Normal Normal Stool Size Moderate Small Small Stool Color Green Brown Brown Stool Consistency Watery Loose Loose Loose # Voids 1 # Bowel Movements 1 1 General appearance: no acute distress Exam: Alert oriented Nonlabored breathing nontender abdomen/PD catheter No anxiety Ambulating Medical - PN: Obj Da - Labs CBC & Chem 7: 12/18/18 04:06 12/18/18 04:06 Labs: Abnormal Lab Results 12/18/18 12/18/18 12/17/18 04:06 04:06 15:36 RBC 3.29 L 3.67 L Hgb 8.8 L 10.0 L Hct 27.7 L 30.8 L RDW 16.1 H 16.2 H MPV 7.2 L [place] % (Auto) 15.8 H [place] # (Auto) 1.0 H Monocytes % (Manual) 14 H RBC Morphology Abnorm A Anisocytosis 1+ A Potassium Chloride Carbon Dioxide 21 L Anion Gap 19.0 H BUN 55 H Creatinine 7.2 H* Glucose 109 H Calcium Magnesium 1.4 L Alkaline Phosphatase 148 H Total Protein 5.6 L Albumin 2.9 L 12/17/18 15:36 RBC Hgb Hct RDW MPV [place] % (Auto) [place] # (Auto) Monocytes % (Manual) RBC Morphology Anisocytosis Potassium 3.1 L Chloride 94 L Carbon Dioxide Anion Gap 19.0 H BUN 63 H Creatinine 7.6 H* Glucose 179 H Calcium 8.2 L Magnesium Alkaline Phosphatase Total Protein Albumin Meds: Medications Acetaminophen (Tylenol) 650 mg PO Q4-6HP PRN PRN Reason: PAIN/FEVER > 101 Last Admin: 12/18/18 02:46 Dose: 650 mg Documented by: Atorvastatin Calcium (Lipitor) 20 mg PO HS [facility] Last Admin: 12/17/18 21:43 Dose: 20 mg Documented by: Cinacalcet (Sensipar) 30 mg PO QPM [facility] Last Admin: 12/17/18 21:43 Dose: 30 mg Documented by: Cinacalcet (Sensipar) 60 mg PO QAMCC [facility] Last Admin: 12/18/18 07:39 Dose: 60 mg Documented by: Heparin Sodium (Porcine) (Heparin) 5,000 unit SQ Q12 [facility] Last Admin: 12/18/18 08:58 Dose: 5,000 unit Documented by: Sodium Chloride (Sodium Chloride 0.9%) 1,000 mls @ 50 mls/hr IV .Q20H [facility] Stop: 12/20/18 01:44 Last Admin: 12/17/18 15:30 Dose: 50 mls/hr Documented by: Acetaminophen (Ofirmev) 1,000 mg in 100 mls @ 200 mls/hr IV Q6HP PRN PRN Reason: PAIN/FEVER > 101 Magnesium Sulfate (Magnesium Sulfate) 2 gm in 50 mls @ 25 mls/hr IV ONCE ONE Stop: 12/18/18 10:40 Last Admin: 12/18/18 09:43 Dose: 25 mls/hr Documented by: Loperamide HCl (Imodium) 2 mg PO PRN PRN PRN Reason: Diarrhea Last Admin: 12/18/18 09:18 Dose: 2 mg Documented by: Melatonin (Melatonin 3mg Tablet) 3 - 6 mg PO HSP PRN PRN Reason: Insomnia Multivit/Ca Carb/B Cmplx/FA/Prenat (Diatx) 1 tab PO DAILY [facility] Last Admin: 12/18/18 08:58 Dose: 1 tab Documented by: Ondansetron HCl (Zofran) 4 mg IV Q4-6HP PRN PRN Reason: Nausea And Vomiting Fluticasone/Salmeterol (Advair 250-50 Diskus) 1 puff INH Q12 [facility] Last Admin: 12/18/18 09:00 Dose: Not Given Documented by: Sevelamer Carbonate (Renvela) 800 mg PO TIDCC [facility] Last Admin: 12/18/18 07:38 Dose: 800 mg Documented by: Sodium Chloride (Saline Flush) 10 ml IV Q8 [facility] Last Admin: 12/18/18 04:59 Dose: Not Given Documented by: Medical - PN: A/P - Time Spent With Patient Total time spent is greater than 50% in coordination of care (as documented) at patient's floor/unit and/or counseling patient: 25 - 35 minutes (1) Diarrhea Status: Chronic Assessment and plan: * Severe diarrhea -C. difficile negative. Rule out secretory versus osmotic diarrhea. Further stool studies pending. Will need endoscopy evaluation. Schedule colonoscopy 12/22 * Hypokalemia and low magnesium on IV and oral replacement * Volume depletion continue crystalloids * ESRD on peritoneal dialysis-nephrology consulted * Hyperlipidemia-start home dose statin * Full code * Prophylaxis heparin Plan * Continue crystalloids/R replacement * Diarrhea workup/GI consult * Regular dialysis per nephrology * Pre-existing medical condition management meds Current Visit: No
[2018-12-18] MEDS: ONDANSETRON 4 MG/2 ML VIAL IV PRN (12:09)
--- NOTE | 2018-12-18 16:49 | Nephrology Progress Note ---
Subjective Patient information: Note initiated : 12/18/18 at 4:46 pm Service Date, if different from initiated Date: [] Patient: Ema Vang 78 y/o F admitted on 12/17/18 for N/V/D, Dehydration. Chief Complaint: [] Principal diagnosis: diarrhea Interval history: Patient continues to have diarrhea, nausea, vomiting, poor appetite cdiff was ruled out ongoing stool studies no SOB, CP no edema no concerns with PD Pertinent ROS: ABOVE Objective - Vital Signs Vital signs: Vital Signs Temp Pulse Resp BP BP Pulse Ox 12/18/18 15:00 97.8 F 92 H 16 116/69 94 12/18/18 11:44 97.7 F 91 H 16 140/72 95 12/18/18 08:21 98.7 F 119/62 12/18/18 07:56 97.4 F 85 16 123/59 96 12/18/18 04:38 98.1 F 82 16 118/61 94 12/17/18 23:35 98.7 F 99 H 22 137/77 94 12/17/18 20:34 98.7 F 119/65 12/17/18 18:34 98.7 F 92 H 22 119/65 93 12/17/18 17:22 98.0 F 100 H 20 116/64 93 Intake and Output 12/18/18 12/18/18 12/18/18 05:59 13:59 21:59 Intake Total 325 400 Output Total 150 400 300 Balance 175 -400 100 Intake: Oral 325 400 Output: Void Amount 50 300 Urine/Stool Mix 100 100 Emesis 300 Other: Meal Lunch Percent of Meal Consumed 0% Feeding Ability Independent Urine Appearance Clear Clear Urine Color Pale Bright Yellow Urine Odor Normal Normal Stool Size Small Small Stool Color Brown Brown Stool Consistency Loose Loose # Bowel Movements 1 Weight 149 lb Patient Weight 12/19/18 05:59 Weight 149 lb Intake & Output: Intake & Output 12/18/18 12/18/18 12/18/18 05:59 13:59 21:59 Intake Total 325 400 Output Total 150 400 300 Balance 175 -400 100 Weight 149 lb Intake: Oral 325 400 Output: Void Amount 50 300 Urine/Stool Mix 100 100 Emesis 300 Other: Meal Lunch Percent of Meal Consumed 0% Feeding Ability Independent Urine Appearance Clear Clear Urine Color Pale Bright Yellow Urine Odor Normal Normal Stool Size Small Small Stool Color Brown Brown Stool Consistency Loose Loose # Bowel Movements 1 - General Appearance General appearance: appears started age, chronically ill, frail EENT: mucous membranes moist Neck: no JVD Respiratory: clear Cardiology: no edema, normal S1, normal S2 Gastrointestinal: no tenderness, no guarding Integumentary: warm and dry Neurologic: alert and oriented x3 Musculoskeletal: no erythema, no cyanosis Psychiatric: mood/affect appropriate - Lab 12/18/18 04:06 12/18/18 04:06 Most recent lab results Calcium 8.6 mg/dl (8.6-10.4) 12/18/18 04:06 Phosphorus 4.4 mg/dL (2.7-4.5) 12/18/18 04:06 Magnesium 1.4 mg/dL (1.6-2.5) L 12/18/18 04:06 Assessment and Plan (1) Clostridium difficile infection Status: Acute (2) ESRD on peritoneal dialysis Status: Chronic Priority: Medium - Narrative A/P Narrative: C diff negative, still has diarrhea stool studies to r/o other etiology consider consult with Dr Quiroz, 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
[2018-12-18] MEDS: 0.9 % SODIUM CHLORIDE 1,000 ML IV SCH (17:51)
[2018-12-18] MEDS: ATORVASTATIN 20 MG TABLET PO SCH (21:46)
[2018-12-18] MEDS: MELATONIN 3 MG TABLET PO PRN (21:47)
[2018-12-19] MEDS: ONDANSETRON 4 MG/2 ML VIAL IV PRN ×2 (01:04→11:57)
[2018-12-19] MEDS: MELATONIN 3 MG TABLET PO PRN ×2 (01:11→20:39)
[2018-12-19] MEDS: 0.9 % SODIUM CHLORIDE 10 ML SYRINGE IV SCH ×4 (05:49→22:00)
[2018-12-19 06:00] LABS: Mean Cell Volume 83.8 fL (80.0-100.0); Mean Corpuscular HGB Conc 32.1 g/dL (31.0-36.0); Platelet Count 247 K/mcL (140-440); RBC 3.29 M/mcL (4.00-5.20); Red Cell Distribution Width 15.9 % (11.5-14.5)
[2018-12-19 06:29] LABS: ALT/SGPT 8 U/l (0-40); Albumin/Globulin Ratio 1.1 (1.0-2.3); Alkaline Phosphatase 153 U/L (39-117); Bilirubin,Direct < 0.2 mg/dL (0.0-0.3); Blood Urea Nitrogen 43 mg/dl (8-23); Gamma Glutamyl Transpeptidase 12 U/L (5-36); Uric Acid 5.3 mg/dL (2.5-8.0)
[2018-12-19 08:04] LABS: Eosinophils % (Manual) 1 % (0-7); Hypochromasia FEW (NONE SEEN); Lymphocytes % 32 % (15-49); Monocytes % (Manual) 18 % (1-12); Platelet Estimate NORMAL (NORMAL); RBC Morphology ABNORM (NORMAL); Segmented Neutrophils % 49 % (38-78)
[2018-12-19] MEDS: FLUTICASONE/SALMETEROL 250/50 INHALER #14 INH SCH ×2 (08:15→22:10)
[2018-12-19] MEDS: FOLIC ACID/VITAMIN B COMP W-C 1 TAB TABLET PO SCH (08:15)
[2018-12-19] MEDS: SEVELAMER 800 MG TABLET PO SCH ×3 (08:15→17:31)
[2018-12-19] MEDS: 0.9 % SODIUM CHLORIDE 1,000 ML IV SCH ×2 (08:16→14:50)
[2018-12-19] MEDS: CINACALCET 30 MG TABLET PO SCH ×2 (08:16→20:39)
[2018-12-19] MEDS: HEPARIN 5,000 UNIT/ML VIAL SQ SCH ×2 (08:16→20:40)
--- NOTE | 2018-12-19 10:22 | Internal Med Progress Note ---
Medical - PN: Subj Patient information: Note initiated : 12/19/18 at 10:19 am Service Date, if different from initiated Date: [] Patient: Ema Vang a 78 y/o F admitted on 12/17/18 for N/V/D, Dehydration. Chief Complaint: [] Interval history: Ms. Vang is a 78 year old F with a history of ESRD on PD and recent history of recurrent diarrhea since July was admitted 3 weeks ago for diarrhea likely secondary to C. difficile. Patient completed 2 weeks treatment on oral vancomycin however she continues to experience persistent stooling over 8-10 times a day watery without fever or cramps or blood. She was referred by closed circuit screen watcher for further evaluation. Patient will be admitted under observation for further evaluation of persistent diarrhea secondary to likely C. difficile failed treatment. At the time of evaluation patient is alert oriented. She denies active distress. She denies fever chills or abdominal pain/cramps. Denies shortness of breath. She endorses to normal mucoid watery high volume diarrhea 8-10 times a day. She denies associated nausea or headache. She denies recent laxative use or history of lactose intolerance. 12/18-patient doing well. No overnight events except for persistent painless watery diarrhea. C. difficile negative. Fidaxomycin discontinued. Diarrhea workup ongoing. Colonoscopy scheduled on 12/20 Dr. Quiroz 12/19- doing well, improved dirrhea, stool studies pending, EGD/Colonoscopy in AM. Ambulating and tolerating diet. Electrolytes normalized. No family at bedside. Possible discharge after scope tomorrow. Case discussed with Dr. Quiroz GI. - Constitutional Vitals: Vital Signs Temp Pulse Resp BP Pulse Ox 96.9 F L 87 16 113/62 95 12/19/18 07:00 12/19/18 08:00 12/19/18 08:00 12/19/18 07:00 12/19/18 08:00 Period Temp Pulse Resp BP Sys/Hartman Pulse Ox Last 24 Hr 96.9 F-98.1 F 87-92 16-16 102-140/51-72 93-95 Intake and Output 12/18/18 12/19/18 12/19/18 21:59 05:59 13:59 Intake Total 1760 370 240 Output Total 350 50 Balance 1410 320 240 Weight 157 lb Intake & Output: Intake & Output 12/18/18 12/19/18 12/19/18 21:59 05:59 13:59 Intake Total 1760 370 240 Output Total 350 50 Balance 1410 320 240 Weight 157 lb Intake: IV 1000 Sodium Chloride 0.9% 1,000 ml @ 1000 50 mls/hr IV .Q20H [facility] Rx#: [id number] Oral 760 370 240 Output: Void Amount 300 50 Urine/Stool Mix 50 Other: Meal Dinner snack Breakfast Percent of Meal Consumed 75% 100% 75% Feeding Ability Independent Independent Urine Appearance Clear Clear Urine Color Bright Yellow Bright Yellow Urine Odor Normal Normal Stool Size Small Stool Color Brown Stool Consistency Loose # Voids 1 General appearance: no acute distress Exam: Alert oriented Nonlabored breathing Ambulating No anxiety Medical - PN: Obj Da - Labs CBC & Chem 7: 12/19/18 04:04 12/19/18 04:04 Labs: Abnormal Lab Results 12/19/18 12/19/18 12/18/18 04:04 04:04 04:06 RBC 3.29 L Hgb 8.9 L Hct 27.6 L RDW 15.9 H MPV [place] % (Auto) [place] # (Auto) Monocytes % (Manual) 18 H RBC Morphology Abnorm A Hypochromasia Few A Anisocytosis Potassium Chloride Carbon Dioxide 21 L Anion Gap 19.0 H BUN 43 H 55 H Creatinine 6.2 H* 7.2 H* Glucose 116 H 109 H Calcium Phosphorus 4.7 H Magnesium 1.4 L Alkaline Phosphatase 153 H 148 H Total Protein 5.8 L 5.6 L Albumin 3.0 L 2.9 L 12/18/18 12/17/18 12/17/18 04:06 15:36 15:36 RBC 3.29 L 3.67 L Hgb 8.8 L 10.0 L Hct 27.7 L 30.8 L RDW 16.1 H 16.2 H MPV 7.2 L [place] % (Auto) 15.8 H [place] # (Auto) 1.0 H Monocytes % (Manual) 14 H RBC Morphology Abnorm A Hypochromasia Anisocytosis 1+ A Potassium 3.1 L Chloride 94 L Carbon Dioxide Anion Gap 19.0 H BUN 63 H Creatinine 7.6 H* Glucose 179 H Calcium 8.2 L Phosphorus Magnesium Alkaline Phosphatase Total Protein Albumin Meds: Medications Acetaminophen (Tylenol) 650 mg PO Q4-6HP PRN PRN Reason: PAIN/FEVER > 101 Last Admin: 12/18/18 23:59 Dose: 650 mg Documented by: Atorvastatin Calcium (Lipitor) 20 mg PO HS [facility] Last Admin: 12/18/18 21:46 Dose: 20 mg Documented by: Cinacalcet (Sensipar) 30 mg PO QPM [facility] Last Admin: 12/18/18 21:47 Dose: 30 mg Documented by: Cinacalcet (Sensipar) 60 mg PO QAMCC [facility] Last Admin: 12/19/18 08:16 Dose: 60 mg Documented by: Heparin Sodium (Porcine) (Heparin) 5,000 unit SQ Q12 [facility] Last Admin: 12/19/18 08:16 Dose: 5,000 unit Documented by: Sodium Chloride (Sodium Chloride 0.9%) 1,000 mls @ 50 mls/hr IV .Q20H [facility] Stop: 12/20/18 01:44 Last Admin: 12/19/18 08:16 Dose: Not Given Documented by: Acetaminophen (Ofirmev) 1,000 mg in 100 mls @ 200 mls/hr IV Q6HP PRN PRN Reason: PAIN/FEVER > 101 Loperamide HCl (Imodium) 2 mg PO PRN PRN PRN Reason: Diarrhea Last Admin: 12/18/18 17:56 Dose: 2 mg Documented by: Melatonin (Melatonin 3mg Tablet) 3 - 6 mg PO HSP PRN PRN Reason: Insomnia Last Admin: 12/19/18 01:11 Dose: 3 mg Documented by: Multivit/Ca Carb/B Cmplx/FA/Prenat (Diatx) 1 tab PO DAILY [facility] Last Admin: 12/19/18 08:15 Dose: 1 tab Documented by: Ondansetron HCl (Zofran) 4 mg IV Q4-6HP PRN PRN Reason: Nausea And Vomiting Last Admin: 12/19/18 01:04 Dose: 4 mg Documented by: Fluticasone/Salmeterol (Advair 250-50 Diskus) 1 puff INH Q12 [facility] Last Admin: 12/19/18 08:15 Dose: Not Given Documented by: Sevelamer Carbonate (Renvela) 800 mg PO TIDCC [facility] Last Admin: 12/19/18 08:15 Dose: 800 mg Documented by: Sodium Chloride (Saline Flush) 10 ml IV Q8 [facility] Last Admin: 12/19/18 05:49 Dose: Not Given Documented by: Medical - PN: A/P - Time Spent With Patient Total time spent is greater than 50% in coordination of care (as documented) at patient's floor/unit and/or counseling patient: 25 - 35 minutes (1) Diarrhea Status: Chronic Assessment and plan: * Severe diarrhea -clinically improving. Stool workup negative so far. C. difficile negative. Await workup for secretory versus osmotic diarrhea. Colonoscopy/EGD 12/20. Case discussed with Dr. Quiroz. Continue Imodium * Hypokalemia and low magnesium resolved with IV and oral replacement * Volume depletion clinically resolved -continue as needed crystalloids * ESRD on peritoneal dialysis -managed by nephrology * Hyperlipidemia -Continue statin * Full code * Prophylaxis heparin Plan * Endoscopy 12/20 * PD per nephrology * Pre-existing medical condition management meds Current Visit: No
[2018-12-19] MEDS: LOPERAMIDE 2 MG CAPSULE PO PRN (17:31)
[2018-12-19] MEDS: ATORVASTATIN 20 MG TABLET PO SCH (20:39)
[2018-12-19] MEDS: ACETAMINOPHEN 325 MG TABLET PO PRN (20:46)
[2018-12-20] MEDS: ONDANSETRON 4 MG/2 ML VIAL IV PRN (03:14)
[2018-12-20 05:59] LABS: Mean Cell Volume 83.9 fL (80.0-100.0); Mean Corpuscular HGB Conc 32.4 g/dL (31.0-36.0); Platelet Count 251 K/mcL (140-440); RBC 3.25 M/mcL (4.00-5.20); Red Cell Distribution Width 15.9 % (11.5-14.5)
[2018-12-20] MEDS: 0.9 % SODIUM CHLORIDE 10 ML SYRINGE IV SCH ×3 (06:00→21:04)
[2018-12-20 06:44] LABS: ALT/SGPT 9 U/l (0-40); Albumin/Globulin Ratio 1.2 (1.0-2.3); Alkaline Phosphatase 148 U/L (39-117); Bilirubin,Direct < 0.2 mg/dL (0.0-0.3); Blood Urea Nitrogen 34 mg/dl (8-23); Gamma Glutamyl Transpeptidase 12 U/L (5-36); Uric Acid 5.1 mg/dL (2.5-8.0)
[2018-12-20 07:58] LABS: Anisocytosis 1+ (NONE SEEN); Band Neutrophils % 1 % (0-10); Eosinophils % (Manual) 1 % (0-7); Lymphocytes % 30 % (15-49); Monocytes % (Manual) 12 % (1-12); Platelet Estimate NORMAL (NORMAL); RBC Morphology ABNORM (NORMAL); Segmented Neutrophils % 56 % (38-78)
[2018-12-20] MEDS ORDERED: MAGNESIUM SULFATE 2 GM/50 ML BAG IV ONE (08:39)
--- NOTE | 2018-12-20 09:08 | Internal Med Progress Note ---
Medical - PN: Subj Patient information: Note initiated : 12/20/18 at 9:06 am Service Date, if different from initiated Date: [] Patient: Ema Vang a 78 y/o F admitted on 12/19/18 for N/V/D, Dehydration. Chief Complaint: [] Interval history: Ms. Vang is a 78 year old F with a history of ESRD on PD and recent history of recurrent diarrhea since July was admitted 3 weeks ago for diarrhea likely secondary to C. difficile. Patient completed 2 weeks treatment on oral vancomycin however she continues to experience persistent stooling over 8-10 times a day watery without fever or cramps or blood. She was referred by stable manager for further evaluation. Patient will be admitted under observation for further evaluation of persistent diarrhea secondary to likely C. difficile failed treatment. At the time of evaluation patient is alert oriented. She denies active distress. She denies fever chills or abdominal pain/cramps. Denies shortness of breath. She endorses to normal mucoid watery high volume diarrhea 8-10 times a day. She denies associated nausea or headache. She denies recent laxative use or history of lactose intolerance. 12/18-patient doing well. No overnight events except for persistent painless watery diarrhea. C. difficile negative. Fidaxomycin discontinued. Diarrhea workup ongoing. Colonoscopy scheduled on 12/20 Dr. Quiroz 12/19- doing well, improved dirrhea, stool studies pending, EGD/Colonoscopy in AM. Ambulating and tolerating diet. Electrolytes normalized. No family at bedside. Possible discharge after scope tomorrow. Case discussed with Dr. Quiroz GI. 12/20-patient doing a lot better. No overnight events. No concerns per staff. Due for colonoscopy and EGD today. No more bloody stools. Denies abdominal pain or worsening diarrhea. at bedside. Undergoing colonoscopy. - Constitutional Vitals: Vital Signs Temp Pulse Resp BP Pulse Ox 97.8 F 103 H 20 146/76 94 12/20/18 07:00 12/20/18 03:00 12/20/18 07:00 12/20/18 07:00 12/20/18 07:00 Period Temp Pulse Resp BP Sys/Hartman Pulse Ox Last 24 Hr 97.0 F-98.4 F 85-103 16-20 110-156/63-80 94-96 Intake and Output 12/19/18 12/20/18 12/20/18 21:59 05:59 13:59 Intake Total 240 400 Output Total 300 Balance -60 400 Weight 155 lb Intake & Output: Intake & Output 12/19/18 12/20/18 12/20/18 21:59 05:59 13:59 Intake Total 240 400 Output Total 300 Balance -60 400 Weight 155 lb Intake: Oral 240 400 Output: Urine/Stool Mix 300 Other: Meal Dinner Percent of Meal Consumed 75% Feeding Ability Independent Stool Size Moderate Moderate Small Stool Color Brown Brown Brown Stool Consistency Loose Soft Soft Loose Loose # Bowel Movements 1 1 General appearance: no acute distress Exam: Alert oriented Nonlabored breathing No anxiety Nondistended abdomen Medical - PN: Obj Da - Labs CBC & Chem 7: 12/20/18 03:56 12/20/18 03:56 Labs: Abnormal Lab Results 12/20/18 12/20/18 12/19/18 03:56 03:56 04:04 RBC 3.25 L Hgb 8.8 L Hct 27.3 L RDW 15.9 H MPV Lawrence % (Auto) Lawrence # (Auto) Monocytes % (Manual) RBC Morphology Abnorm A Hypochromasia Anisocytosis 1+ A Potassium Chloride Carbon Dioxide Anion Gap 17.0 H BUN 34 H 43 H Creatinine 6.1 H* 6.2 H* Glucose 116 H Calcium 8.2 L Phosphorus 4.6 H 4.7 H Magnesium 1.5 L Alkaline Phosphatase 148 H 153 H Total Protein 5.5 L 5.8 L Albumin 3.0 L 3.0 L Triglycerides 185 H 12/19/18 12/18/18 12/18/18 04:04 04:06 04:06 RBC 3.29 L 3.29 L Hgb 8.9 L 8.8 L Hct 27.6 L 27.7 L RDW 15.9 H 16.1 H MPV Lawrence % (Auto) Lawrence # (Auto) Monocytes % (Manual) 18 H 14 H RBC Morphology Abnorm A Abnorm A Hypochromasia Few A Anisocytosis 1+ A Potassium Chloride Carbon Dioxide 21 L Anion Gap 19.0 H BUN 55 H Creatinine 7.2 H* Glucose 109 H Calcium Phosphorus Magnesium 1.4 L Alkaline Phosphatase 148 H Total Protein 5.6 L Albumin 2.9 L Triglycerides 12/17/18 12/17/18 15:36 15:36 RBC 3.67 L Hgb 10.0 L Hct 30.8 L RDW 16.2 H MPV 7.2 L Lawrence % (Auto) 15.8 H Lawrence # (Auto) 1.0 H Monocytes % (Manual) RBC Morphology Hypochromasia Anisocytosis Potassium 3.1 L Chloride 94 L Carbon Dioxide Anion Gap 19.0 H BUN 63 H Creatinine 7.6 H* Glucose 179 H Calcium 8.2 L Phosphorus Magnesium Alkaline Phosphatase Total Protein Albumin Triglycerides Meds: Medications Acetaminophen (Tylenol) 650 mg PO Q4-6HP PRN PRN Reason: PAIN/FEVER > 101 Last Admin: 12/19/18 20:46 Dose: 650 mg Documented by: Atorvastatin Calcium (Lipitor) 20 mg PO HS [facility] Last Admin: 12/19/18 20:39 Dose: 20 mg Documented by: Cinacalcet (Sensipar) 30 mg PO QPM [facility] Last Admin: 12/19/18 20:39 Dose: 30 mg Documented by: Cinacalcet (Sensipar) 60 mg PO QAC [facility] Last Admin: 12/19/18 08:16 Dose: 60 mg Documented by: Heparin Sodium (Porcine) (Heparin) 5,000 unit SQ Q12 [facility] Last Admin: 12/19/18 20:40 Dose: 5,000 unit Documented by: Acetaminophen (Ofirmev) 1,000 mg in 100 mls @ 200 mls/hr IV Q6HP PRN PRN Reason: PAIN/FEVER > 101 Magnesium Sulfate (Magnesium Sulfate) 2 gm in 50 mls @ 25 mls/hr IV ONCE ONE Stop: 12/20/18 10:38 Loperamide HCl (Imodium) 2 mg PO PRN PRN PRN Reason: Diarrhea Last Admin: 12/19/18 17:31 Dose: 2 mg Documented by: Magnesium Citrate (Citroma) 300 ml PO 1000 [facility] Stop: 12/20/18 12:00 Melatonin (Melatonin 3mg Tablet) 3 - 6 mg PO HSP PRN PRN Reason: Insomnia Last Admin: 12/19/18 20:39 Dose: 3 mg Documented by: Multivit/Ca Carb/B Cmplx/FA/Prenat (Diatx) 1 tab PO DAILY [facility] Last Admin: 12/19/18 08:15 Dose: 1 tab Documented by: Omeprazole (Prilosec) 20 mg PO ACB [facility] Ondansetron HCl (Zofran) 4 mg IV Q4-6HP PRN PRN Reason: Nausea And Vomiting Last Admin: 12/20/18 03:14 Dose: 4 mg Documented by: Polyethylene Glycol/Electrolytes (Golytely) 4,000 ml PO 1000 [facility] Stop: 12/20/18 12:00 Fluticasone/Salmeterol (Advair 250-50 Diskus) 1 puff INH Q12 [facility] Last Admin: 12/19/18 22:10 Dose: Not Given Documented by: Sevelamer Carbonate (Renvela) 800 mg PO TIDCC [facility] Last Admin: 12/19/18 17:31 Dose: 800 mg Documented by: Sodium Chloride (Saline Flush) 10 ml IV Q8 [facility] Last Admin: 12/20/18 06:00 Dose: Not Given Documented by: Medical - PN: A/P - Time Spent With Patient Total time spent is greater than 50% in coordination of care (as documented) at patient's floor/unit and/or counseling patient: 15 - 24 minutes (1) Diarrhea Status: Chronic Assessment and plan: * Severe diarrhea -clinically improving. Stool workup negative so far. C. difficile negative. Await colonoscopy/EGD * Hypokalemia and low magnesium-on continue replacement * Volume depletion clinically resolved * ESRD on peritoneal dialysis -managed by nephrology * Hyperlipidemia -Continue statin * Full code * Prophylaxis heparin Plan * EGD/colonoscopy today * Continue inpatient management * Continue PD per nephrology * Electrolyte replacement * Pre-existing medical condition management meds Current Visit: No
[2018-12-20] MEDS: SEVELAMER 800 MG TABLET PO SCH ×3 (09:12→16:46)
[2018-12-20] MEDS: CINACALCET 30 MG TABLET PO SCH ×2 (09:13→20:59)
[2018-12-20] MEDS: FOLIC ACID/VITAMIN B COMP W-C 1 TAB TABLET PO SCH (09:14)
[2018-12-20] MEDS: HEPARIN 5,000 UNIT/ML VIAL SQ SCH ×2 (09:15→21:00)
[2018-12-20] MEDS: OMEPRAZOLE 20 MG CAPSULE PO SCH (09:15)
[2018-12-20] MEDS ORDERED: MAGNESIUM CITRATE 300 ML ORAL.SOL PO SCH (10:00)
[2018-12-20] MEDS ORDERED: PEG 3350/NA SULF,BICARB,CL/KCL 4,000 ML ORAL.SOL PO SCH (10:00)
[2018-12-20] MEDS: FLUTICASONE/SALMETEROL 250/50 INHALER #14 INH SCH ×2 (11:36→21:01)
[2018-12-20] MEDS: MIDAZOLAM 2 MG/2 ML VIAL IV SCH ×2 (12:25→17:10)
[2018-12-20] MEDS: PROPOFOL 200 MG/20 ML VIAL IV SCH ×2 (12:26→17:10)
[2018-12-20] MEDS ORDERED: MIDAZOLAM 2 MG/2 ML VIAL ONE (14:08)
[2018-12-20] MEDS ORDERED: PROPOFOL 40 ML IV ONE (14:08)
--- NOTE | 2018-12-20 14:10 | Nephrology Progress Note ---
Subjective Patient information: Note initiated : 12/20/18 at 2:06 pm Service Date, if different from initiated Date: [] Patient: Ema Vang 78 y/o F admitted on 12/19/18 for N/V/D, Dehydration. Chief Complaint: [] Principal diagnosis: diarrhea Interval history: patient had an episode of catrachito blood in stools, she continues to have multiple loose stools through the day she has persistent nausea, vomiting on and off and poor appetite she is scheduled to get EGD and colonoscopy today no SOB, CP no edema no concerns with PD Pertinent ROS: ABOVE Objective - Vital Signs Vital signs: Vital Signs Temp Pulse Resp BP BP Pulse Ox 12/20/18 11:00 97.6 F 20 149/74 96 12/20/18 07:00 97.8 F 20 146/76 94 12/20/18 03:00 98.4 F 103 H 16 156/73 94 12/19/18 23:00 97.7 F 89 18 142/66 95 12/19/18 20:50 98.1 F 135/63 12/19/18 19:00 98.1 F 93 H 20 135/68 95 12/19/18 15:00 98.0 F 88 16 151/80 96 Intake and Output 12/20/18 12/20/18 12/20/18 05:59 13:59 21:59 Intake Total 400 Balance 400 Intake: Oral 400 Other: Meal Breakfast Percent of Meal Consumed npo Feeding Ability Independent Urine Appearance Clear Urine Color Pale Urine Odor Normal Stool Size Moderate Small Stool Color Brown Brown Stool Consistency Soft Liquid Loose # Bowel Movements 1 Intake & Output: Intake & Output 12/20/18 12/20/18 12/20/18 05:59 13:59 21:59 Intake Total 400 Balance 400 Intake: Oral 400 Other: Meal Breakfast Percent of Meal Consumed npo Feeding Ability Independent Urine Appearance Clear Urine Color Pale Urine Odor Normal Stool Size Moderate Small Stool Color Brown Brown Stool Consistency Soft Liquid Loose # Bowel Movements 1 - General Appearance General appearance: appears started age, chronically ill EENT: mucous membranes moist Neck: no JVD Respiratory: clear Cardiology: no rub, no edema, regular rate, regular rhythm Gastrointestinal: no tenderness, no guarding Integumentary: warm and dry Neurologic: alert and oriented x3 Musculoskeletal: no erythema, no cyanosis Psychiatric: mood/affect appropriate - Lab 12/20/18 03:56 12/20/18 03:56 Most recent lab results Calcium 8.2 mg/dl (8.6-10.4) L 12/20/18 03:56 Phosphorus 4.6 mg/dL (2.7-4.5) H 12/20/18 03:56 Magnesium 1.5 mg/dL (1.6-2.5) L 12/20/18 03:56 Assessment and Plan (1) Clostridium difficile infection Status: Acute (2) ESRD on peritoneal dialysis Status: Chronic Priority: Medium - Narrative A/P Narrative: C diff negative, still has diarrhea EGD colonoscopy today as she continues to have GI symptoms ESRD on PD: ct PD with 4 cycles using 1.5% dianeal and No day time dwell today given her K level is normal, will recheck today given colonoscopy prep and borderline level anemia from ESRD WILL NEED ARANESP will follow along Appreciate hospitalist help in managing this patient
[2018-12-20 15:06] LABS: Blood Urea Nitrogen 32 mg/dl (8-23)
[2018-12-20] MEDS ORDERED: METOCLOPRAMIDE 10 MG/2 ML VIAL IV ONE (17:07)
[2018-12-20] MEDS ORDERED: METOCLOPRAMIDE 10 MG/2 ML VIAL ONE (17:11)
[2018-12-20] MEDS: LOPERAMIDE 2 MG CAPSULE PO PRN (20:59)
[2018-12-20] MEDS: ACETAMINOPHEN 325 MG TABLET PO PRN (20:59)
[2018-12-20] MEDS: ATORVASTATIN 20 MG TABLET PO SCH (20:59)
[2018-12-21] MEDS: 0.9 % SODIUM CHLORIDE 10 ML SYRINGE IV SCH (06:00)
[2018-12-21 06:06] LABS: Mean Cell Volume 83.5 fL (80.0-100.0); Mean Corpuscular HGB Conc 31.8 g/dL (31.0-36.0); Platelet Count 269 K/mcL (140-440); RBC 3.36 M/mcL (4.00-5.20); Red Cell Distribution Width 15.8 % (11.5-14.5)
[2018-12-21 06:44] LABS: Lymphocytes % 34 % (15-49); Monocytes % (Manual) 6 % (1-12); Platelet Estimate NORMAL (NORMAL); RBC Morphology NORMAL (NORMAL); Segmented Neutrophils % 60 % (38-78)
[2018-12-21 06:45] LABS: ALT/SGPT 11 U/l (0-40); Albumin 2.9 gm/dL (3.2-5.2); Albumin/Globulin Ratio 1.1 (1.0-2.3); Alkaline Phosphatase 159 U/L (39-117); Bilirubin,Direct < 0.2 mg/dL (0.0-0.3); Blood Urea Nitrogen 28 mg/dl (8-23); Gamma Glutamyl Transpeptidase 14 U/L (5-36); Uric Acid 5.8 mg/dL (2.5-8.0)
[2018-12-21] MEDS: OMEPRAZOLE 20 MG CAPSULE PO SCH (07:07)
--- NOTE | 2018-12-21 07:18 | Operative Note ---
DATE OF OPERATION: 12/20/2018 PREPROCEDURE DIAGNOSES: Duodenitis with bleeding, possible ulcer that was not visualized. POSTPROCEDURE DIAGNOSES: Duodenitis, gastritis, gastric polyps, EG junction, ? reflux. PROCEDURE: Esophagogastroduodenoscopy with biopsy. INSTRUMENT USED: Olympus [place] [id number] endoscope. SPECIMENS OBTAINED: Biopsies from duodenum, biopsies from antrum, biopsy of gastric polyps. CLOtest RESULTS: INDICATIONS: The patient is a 78-year-old lady whose primary care physician is Dr. Ceja. The patient was admitted to [facility] back in September. She had significant abdominal pain, nausea and vomiting. There was concern regarding ulcer. EGD was accomplished on . There was gastritis, inflammation at the EG junction; there was a possible erosion or ulcer in the duodenal bulb. However, the erosion or ulcer was not definitely seen. There was some bleeding noted. CLOtest results were negative. I did recommend PPI treatment and follow-up EGD in about 3 months. However, the patient's home medication list does not include a PPI medication. Endoscopy was indicated for reasons described above. INFORMED CONSENT: Time of informed consent 17:08. The procedure was reviewed with the patient. The patient had no further questions and accepts the risks and benefits thereof. One of the risks that were discussed included . Additional risks that were also discussed included bleeding, reaction to medication, possible perforation and possible need for surgery. IV MEDICATIONS USED: Versed 2 mg, propofol 120 mg. FINDINGS: ESOPHAGUS: Proximal and mid esophagus normal. Distal esophagus normal. EG JUNCTION: This was at 37 cm. There was some erythema and edema and slight scarring noted. There was a hiatal hernia down to 40 cm. STOMACH: Cardia: This appeared normal. Fundus and body a few polyps were noted. Biopsies were taken in the body. There were scattered areas of erythema and edema noted in the antrum, there were a few linear areas and scattered areas of erythema and edema noted. PYLORUS: Normal. DUODENUM: At the junction of the bulb and descending limb of the duodenum, there was significant erythema, edema, and multiple petechiae. Again, no definite ulcer was seen. The descending limb of the duodenum appeared normal. RECOMMENDATIONS: The patient should resume PPI therapy. I would suggest a prescription for Protonix 40 mg 1 p.o. every day, #30 with 11 refills. I would recommend a follow-up EGD in 3 or 4 months while the patient is still on a PPI medication. If she fails to improve and she does take the medication we may need to retest for Helicobacter in an ideal fashion when she is totally off of PPI medications for probably about 2 weeks. SEDATION TIME: 17:11 to 18:10. This is a combined sedation time for both EGD and colonoscopy. Please refer to the preprocedure nurse's notes, procedure flowsheet, procedure record, and post-procedure assessment for details of the sedation including the pre-, intra-, and post-service work. [email or web address]:kh Job ID: [id number] Doc ID: [id number] Florentin Ceja MD
--- NOTE | 2018-12-21 08:01 | Operative Note ---
DATE OF OPERATION: 12/20/2018 PREPROCEDURE DIAGNOSIS: Diarrhea, ? microscopic colitis. POSTPROCEDURE DIAGNOSES: Diverticulosis, hemorrhoids, petechia secondary to spasm in the area of colon were diverticula are present, lipoma x3, diarrhea of uncertain cause-microscopic colitis or perhaps C. diff that is not yet severe enough to cause a positive toxin. PROCEDURE: Colonoscopy with biopsy. INSTRUMENT USED: Olympus [place] [id number] colonoscope. SPECIMENS OBTAINED: Biopsies from terminal ileum, biopsies from 2 lipomas ascending colon, biopsies from lipoma descending colon and random biopsies from normal appearing colon. INDICATIONS: The patient is a 78-year-old lady referred by Dr. Ceja. The patient was admitted to [facility] under the care one of the hospitalists, Dr. Buck. Per verbal report, I believe the patient has had C. diff in the past. She was treated. She has had recurrent or persistent diarrhea; however, C. diff test was negative. Colonoscopy is indicated to evaluate for microscopic colitis, inflammatory bowel disease or other pathology that may explain her troublesome problem with diarrhea. INFORMED CONSENT: Time of informed consent 17:08. The procedure was reviewed with the patient. The patient had no further questions and accepts the risks and benefits thereof. One of the risks that were discussed included . Additional risks that were also discussed included bleeding, reaction to medication, possible perforation and possible need for surgery. IV MEDICATIONS USED: No additional Versed was given, combined total of 2 mg for the EGD and colonoscopy; propofol an additional 210 mg were given for combined total of 330 mg for the EGD and colonoscopy. FINDINGS: RECTUM: Hemorrhoids were noted. SIGMOID COLON: Diverticula were noted. Around the area where the diverticula were, there were scattered areas of petechia and maybe some erythema. This is probably secondary to spasm. There was no pus. There was no suggestion of infection. In the proximal descending colon, there was a 3 cm lipoma. Biopsies were obtained. SPLENIC FLEXURE/TRANSVERSE COLON/HEPATIC FLEXURE: Normal. ASCENDING COLON: In the proximal portion about 1 or 2 ___ were distal to the level of the ileocecal valve. There were 2 lipomas, one about 1 cm and one about 2 cm in size. Biopsies were taken. CECUM: The cecum was identified by the ileocecal valve and the appendiceal dimple. This appeared normal. TERMINAL ILEUM: This was inspected for a few centimeters and found to be normal. ADDITIONAL COMMENTS: Biopsies were taken from the terminal ileum. Biopsies were taken from random areas in colon. Biopsies were taken from the lipomas, both in the ascending colon and the descending colon. RECOMMENDATIONS: Await pathology report. If there is evidence of microscopic colitis, appropriate treatment will be recommended. There is no evidence of microscopic colitis and the patient still has diarrhea, we may need to check the C. diff toxin once again. Office appointment in a few weeks may be of benefit. If C. diff is negative in a few weeks and the biopsies do not show microscopic colitis or inflammatory bowel disease, we may need to consider further evaluation, perhaps malabsorption studies including the stool for sodium, stool for potassium, stool for osmolality and measured serum osmolality. For colon cancer screening purposes the patient could probably wait 10 years until another exam is necessary unless she has had some colonoscopies in the recent past that I was not aware of and had some significant polyps removed. SEDATION TIME: 17:11 to 18:10. Please refer to the preprocedure nurse's notes, procedure flowsheet, procedure record, and post-procedure assessment for details of the sedation including the pre-, intra-, and post-service work. [email or web address]:kh Job ID: [id number] Doc ID: [id number] Florentin Ceja MD
[2018-12-21] MEDS ORDERED: PANTOPRAZOLE 40 MG PACKET PO SCH (08:02)
[2018-12-21] MEDS: SEVELAMER 800 MG TABLET PO SCH (08:27)
[2018-12-21] MEDS: HEPARIN 5,000 UNIT/ML VIAL SQ SCH (08:28)
[2018-12-21] MEDS: FOLIC ACID/VITAMIN B COMP W-C 1 TAB TABLET PO SCH (08:28)
[2018-12-21] MEDS: CINACALCET 30 MG TABLET PO SCH (08:29)
[2018-12-21] MEDS: FLUTICASONE/SALMETEROL 250/50 INHALER #14 INH SCH (08:37)
[2018-12-21] MEDS: LOPERAMIDE 2 MG CAPSULE PO PRN (08:55)
[2018-12-21] MEDS ORDERED: POTASSIUM CHLORIDE 20 MEQ TABLET PO ONE (09:05)
--- NOTE | 2018-12-21 09:39 | Discharge Summary ---
Medical - DS: Prov Patient information: Note initiated : 12/21/18 at 9:36 am Service Date, if different from initiated Date: [] Patient: Ema Vang 78 y/o F admitted on 12/19/18 for N/V/D, Dehydration. Chief Complaint: [] Date of admission: 12/19/18 12:47 Discharge date: 12/21/18 Primary care physician: Sky Ceja Medical - DS: Meds - Discharge Medications Prescriptions: Loperamide [Imodium] 2 mg PO PRN PRN #30 cap PRN Reason: Diarrhea Pantoprazole [Protonix] 40 mg PO QAMAC #90 packet Active and Home Medications: Home Medications gentamicin 0.1 % topical cream 1 applic TOPICAL QDAY #30 g 10/26/17 [Rx Confirmed 12/17/18 Last Taken 12/04/18 09:00] Lidocaine 1 patch TOPICAL PRN PRN 07/30/18 [History Confirmed 12/17/18 Last Taken 11/07/18] Sevelamer HCl [Renagel] 800 mg PO TIDCC 10/30/18 [History Confirmed 12/17/18 Last Taken 12/04/18 09:00] Fluticasone/Salmeterol [Advair 250-50 Diskus] 1 puff INH Q12 12/04/18 [History Confirmed 12/17/18 Last Taken 12/03/18 21:00] Amino AC/Protein Hydr/Whey Pro [Prosource Tf Liquid Packet] 30 ml PO QDAY 12/17/18 [History Confirmed 12/17/18 Last Taken Unknown] Atorvastatin [Lipitor] 20 mg PO DAILY 12/17/18 [History Confirmed 12/17/18 Last Taken Unknown] Cinacalcet HCl [Sensipar] 60 mg PO QDAY 12/17/18 [History Confirmed 12/17/18 Last Taken Unknown] Cinacalcet [Sensipar] 30 mg PO QPM 12/17/18 [History Confirmed 12/17/18 Last Taken Unknown] Folic Acid/Vitamin B Comp W-C [Diatx] 1 tab PO DAILY 12/17/18 [History Confirmed 12/17/18 Last Taken Unknown] Loperamide [Imodium] 2 mg PO PRN PRN #30 cap 12/21/18 [Rx Last Taken Unknown] Pantoprazole [Protonix] 40 mg PO QAMAC #90 packet 12/21/18 [Rx Last Taken Unknown] Medical - DS: Hosp Hospital course: Discharge diagnosis * Chronic persistent diarrhea -clinically improving. Continue Imodium. Repeat C. difficile in 5 days. Stool workup negative so far. Await workup for secretory versus osmotic diarrhea. Colonoscopy/EGD 12/20 evidence of gastritis and started on PPI. * Hypokalemia and low magnesium resolved with IV and oral replacement * Volume depletion clinically resolved -continue as needed crystalloids * ESRD on peritoneal dialysis -continue PD as outpatient * Hyperlipidemia -managed on statin Brief hospital course Ms. Vang is a 78 year old F with a history of ESRD on PD and recent history of recurrent diarrhea since July was admitted 3 weeks ago for diarrhea likely secondary to C. difficile. Patient completed 2 weeks treatment on oral vancomycin however she continues to experience persistent stooling over 8-10 times a day watery without fever or cramps or blood. She was referred by wood carver for further evaluation. Patient will be admitted under observation for further evaluation of persistent diarrhea secondary to likely C. difficile failed treatment. At the time of evaluation patient is alert oriented. She denies active distress. She denies fever chills or abdominal pain/cramps. Denies shortness of breath. She endorses to normal mucoid watery high volume diarrhea 8-10 times a day. She denies associated nausea or headache. She denies recent laxative use or history of lactose intolerance. 12/18-patient doing well. No overnight events except for persistent painless watery diarrhea. C. difficile negative. Fidaxomycin discontinued. Diarrhea workup ongoing. Colonoscopy scheduled on 12/20 Dr. Quiroz 12/19- doing well, improved dirrhea, stool studies pending, EGD/Colonoscopy in AM. Ambulating and tolerating diet. Electrolytes normalized. No family at bedside. Possible discharge after scope tomorrow. Case discussed with Dr. Quiroz GI. 12/20-patient doing a lot better. No overnight events. No concerns per staff. Due for colonoscopy and EGD today. No more bloody stools. Denies abdominal pain or worsening diarrhea. at bedside. Undergoing colonoscopy. 12/21-patient doing well. No overnight events. No concerns or staff. Status post upper and lower endoscopy. GI recommendations PPI for 1 year. Patient will require to follow up with GI as outpatient. No evidence of microscopic colitis. Repeat C. difficile in 5 days to be scheduled by PCP. Follow-up with nephrology and continue PD as before Discharge diagnosis: . - Time Spent with Patient Total time spent providing and/or coordinating discharge services: Greater than 30 minutes Medical - DS: Exam - Constitutional Vitals: Vital Signs Temp Pulse Pulse Resp BP BP Pulse Ox 12/21/18 06:39 97.8 F 16 134/63 94 12/21/18 03:44 97.7 F 85 18 140/60 93 12/21/18 00:08 98.1 F 75 20 143/54 94 12/20/18 21:41 98.1 F 81 16 136/68 95 12/20/18 21:07 83 170/77 95 12/20/18 20:34 98.3 F 164/70 12/20/18 20:07 86 164/70 96 12/20/18 19:37 85 170/86 93 12/20/18 19:07 82 152/73 12/20/18 18:52 79 128/58 95 12/20/18 18:38 86 141/70 93 12/20/18 18:22 76 118/53 12/20/18 18:07 98.1 F 79 16 110/51 91 12/20/18 17:55 74 16 123/50 100 12/20/18 17:53 80 16 92/45 100 12/20/18 17:04 74 20 145/53 95 12/20/18 15:00 97.2 F 90 16 121/71 96 12/20/18 11:00 97.6 F 20 149/74 96 Intake and Output 12/20/18 12/21/18 12/21/18 21:59 05:59 13:59 Intake Total 400 0 Output Total 1201 100 Balance -801 -100 Intake: Oral 400 0 Output: Void Amount 100 # of times incontinent of urine 1 Urine/Stool Mix 1200 Other: Meal cranberry juice, broth, tea Percent of Meal Consumed 50% Feeding Ability Independent Urine Color Bright Yellow Urine Odor Normal # of times incontinent of 1 Bowels Weight 153 lb Medical - DS: Data Labs on day of discharge: Labs from last 24 hours 12/21/18 12/21/18 12/20/18 04:00 04:00 14:11 WBC 6.6 RBC 3.36 L Hgb 8.9 L Hct 28.1 L MCV 83.5 MCH 26.5 MCHC 31.8 RDW 15.8 H Plt Count 269 MPV 7.8 Total Counted 100 Seg Neutrophils % 60 Band Neutrophils % Not Reportable Lymphocytes % 34 Monocytes % (Manual) 6 Platelet Estimate Normal RBC Morphology Normal Sodium 139 136 Potassium 3.3 3.8 Chloride 100 99 Carbon Dioxide 24 20 L Anion Gap 15.0 17.0 H BUN 28 H 32 H Creatinine 6.1 H* 6.1 H* GFR Calculation 6 6 Glucose 86 92 Uric Acid 5.8 Calcium 8.3 L 9.2 Phosphorus 4.5 Magnesium 2.1 Total Bilirubin 0.3 Direct Bilirubin < 0.2 GGT 14 AST 17 ALT 11 Alkaline Phosphatase 159 H Lactate Dehydrogenase 251 H Total Protein 5.5 L Albumin 2.9 L Globulin 2.6 Albumin/Globulin Ratio 1.1 Triglycerides 157 H Preliminary micro results at discharge 12/18/18 16:52 Stool Culture - Preliminary Stool Medical - DS: A/P - Patient/Caregiver Discharge Instructions Activity: increase activity as tolerated Diet: Renal Additional Instructions: Follow-up nephrology as prior Follow GI in 3-4 weeks Repeat C. difficile in 5 days(to be coordinated by PCP) Follow-up PCP in 5-7 days Continue oral PPI daily as per GI recommendations. GI recommends 1 year of PPI Return to ER or worsening diarrhea, lightheadedness dizziness Prescriptions: Loperamide [Imodium] 2 mg PO PRN PRN #30 cap PRN Reason: Diarrhea Pantoprazole [Protonix] 40 mg PO QAMAC #90 packet - Problem Maintenance (1) Diarrhea Status: Chronic - Follow up Plan Disposition: Home, Self-Care Prognosis: Fair Rehab Potential: Fair Overall status at discharge: patient is progressing back to baseline
[2018-12-25 06:28] LABS: Fecal Fat Qualitative NORMAL (NORMAL)
--- NOTE | 2018-12-25 10:40 | Surgical Pathology Report ---
HISTOLOGY SPECIMEN MICROSCOPIC DIAGNOSIS SPECIMEN A - SMALL BOWEL, DUODENUM, BIOPSY: -- MILD ACUTE DUODENITIS WITH MULTIFOCAL GASTRIC METAPLASIA. -- METAPLASIA CONFIRMED ON ALCIAN BLUE/PAS STAIN (ADEQUATE TECHNICAL CONTROL). -- NO VILLOUS BLUNTING OR INTRAEPITHELIAL LYMPHOCYTOSIS IDENTIFIED. SPECIMEN B - STOMACH, ANTRUM, BIOPSY: -- MILD CHRONIC GASTRITIS. -- NO HELICOBACTER TYPE ORGANISMS IDENTIFIED (ALCIAN YELLOW STAIN WITH ADEQUATE TECHNICAL CONTROL). SPECIMEN C - STOMACH, POLYPECTOMY: -- PORTIONS OF HYPERPLASTIC POLYP(S). -- NO HELICOBACTER TYPE ORGANISMS IDENTIFIED (ALCIAN YELLOW STAIN WITH ADEQUATE TECHNICAL CONTROL). SPECIMEN D - SMALL BOWEL, TERMINAL ILEUM, BIOPSY: -- SMALL BOWEL MUCOSA WITH PATCHY MILD ACUTE INFLAMMATION. -- NO ULCERATION, GRANULOMAS OR DYSPLASIA IDENTIFIED. SPECIMEN E - COLON, RANDOM, BIOPSY: -- MILD ACTIVE COLITIS, INCLUDING ACUTE CRYPTITIS. -- NO CRYPT ABSCESSES, ULCERATION, GRANULOMAS OR DYSPLASIA IDENTIFIED. SPECIMEN F - COLON, ASCENDING, BIOPSY: -- MILD ACTIVE COLITIS, INCLUDING ACUTE CRYPTITIS. -- NO CRYPT ABSCESSES, ULCERATION, GRANULOMAS OR DYSPLASIA IDENTIFIED. SPECIMEN G - COLON, DESCENDING, BIOPSY: -- MILD ACTIVE COLITIS, INCLUDING ACUTE CRYPTITIS. (SEE COMMENT) -- NO CRYPT ABSCESSES, ULCERATION, GRANULOMAS OR DYSPLASIA IDENTIFIED. (RLF:barry) COMMENT: The duodenal biopsies (specimen A) demonstrate mild activity and multifocal gastric metaplasia. Villous blunting and intraepithelial lymphocytosis are not identified. The findings are suggestive of peptic duodenitis. The colonic biopsies (specimens E-G) demonstrate patchy mild activity consisting of neutrophils within the lamina propria and surface epithelium, and foci of acute cryptitis. No crypt abscesses, granulomas, ulceration or histologic findings of microscopic colitis are identified. The findings are mild and nonspecific and the differential diagnosis includes medication (NSAIDs) effect, acute self-limited (infectious) colitis and diverticular disease-related colitis. Early inflammatory bowel disease cannot be excluded. Clinical and endoscopic correlation are suggested. CLINICAL HISTORY Duodenal ulcer; diarrhea. PROCEDURAL IMPRESSION Duodenitis; gastritis; gastric polyp; esophagitis; (?) H. pylori; diverticulosis; hemorrhoids; petechiae secondary to spasm; lipomas. GROSS DESCRIPTION Specimen A: Received in formalin labeled A duodenum biopsy, are six sutton-brown tissue fragments 0.1 to 0.4 cm. Totally submitted - one cassette. Specimen B: Received in formalin labeled B antrum biopsy, are two sutton tissue fragments 0.3 and 0.4 cm. Totally submitted - one cassette. Specimen C: Received in formalin labeled C gastric polyp, are three sutton tissue fragments 0.3 to 0.6 cm. Totally submitted - one cassette. Specimen D: Received in formalin labeled D terminal ileum biopsy, are four pale pink-sutton tissue fragments 0.3 to 0.5 cm. Totally submitted - one cassette. Specimen E: Received in formalin labeled E random colon biopsy, are multiple pale sutton tissue fragments less than 0.1 to 0.5 cm. Totally submitted - one cassette. Specimen F: Received in formalin labeled F lipoma ascending colon, are seven pale sutton to red-sutton tissue fragments 0.1 to 0.8 cm. Totally submitted - one cassette. Specimen G: Received in formalin G lipoma descending colon, are seven pale sutton to red-sutton tissue fragments 0.1 to 0.5 cm. Totally submitted - one cassette. (STS:barry) Electronically Signed by: Josefa Duff M.D.
[2018-12-26 12:08] LABS: Chloride, Feces 24 mEq/L; Potassium, Feces 35 mEq/L
== END 2018-12-21 11:30 | disposition home or self-care (01) | DRG 371 ==
LOC: INTOOBSV 12:58 → MEDSUR 12:58
PROVIDERS: ADMIT Internal Medicine; ATTEND Internal Medicine
PROC: COLONBX (2018-12-20 16:30)

== ENCOUNTER 2019-11-18 23:34 | Inpatient (IN) ==
[2019-11-19] MEDS ORDERED: ONDANSETRON 4 MG ODT TABLET SL PRN (01:58)
[2019-11-19] MEDS ORDERED: POLYETHYLENE GLYCOL 3350 17 GM PACKET PO PRN (01:58)
[2019-11-19] MEDS ORDERED: ONDANSETRON 4 MG/2 ML VIAL IV PRN (01:58)
[2019-11-19] MEDS ORDERED: BISACODYL 10 MG SUPP.RECT PR PRN (01:58)
[2019-11-19] MEDS ORDERED: MELATONIN 3 MG TABLET PO PRN (01:58)
[2019-11-19] MEDS ORDERED: 0.9 % SODIUM CHLORIDE 1,000 ML IV SCH (02:00)
[2019-11-19] MEDS ORDERED: VANCOMYCIN PER PHARMACY IV SCH (02:00)
[2019-11-19] MEDS ORDERED: PIPERACILLIN SODIUM/TAZOBACTAM 3.375 GM in DEXTROSE 5% IN WATER 50 ML IV SCH (02:00)
[2019-11-19] MEDS: 0.9 % SODIUM CHLORIDE 10 ML SYRINGE IV SCH ×3 (05:46→20:49)
[2019-11-19 06:11] LABS: Basophils # (Auto) 0.03 K/mcL (0.00-0.30); Basophils % (Auto) 0.2 % (0.0-2.0); Eosinophils % (Auto) 0.8 % (0.0-7.0); Granulocytes % (Auto) 66.8 % (38.0-78.0); Hematocrit 25.5 % (34.1-44.9); Lymphocytes # (Auto) 2.73 K/mcL (1.50-4.80); Lymphocytes % (Auto) 22.3 % (15.5-49.0); Mean Corpuscular HGB Conc 31.4 g/dL (31.0-36.0); Mean Platelet Volume 9.4 fL (7.4-10.4); Monocytes # (Auto) 1.21 K/mcL (0.10-0.90); Monocytes % (Auto) 9.9 % (1.0-12.0); Platelet Count 352 K/mcL (140-440); RBC 2.93 M/mcL (3.59-5.38); Red Cell Distribution Width 14.8 % (11.5-14.5); WBC 12.3 K/mcL (4.50-11.00)
[2019-11-19 06:32] LABS: ALT/SGPT 8 U/l (0-40); AST/SGOT 12 U/l (0-37); Albumin 2.4 gm/dL (3.2-5.2); Albumin/Globulin Ratio 0.8 (1.0-2.3); Alkaline Phosphatase 64 U/L (39-117); Bilirubin,Direct < 0.2 mg/dL (0.0-0.3); Bilirubin,Total 0.2 mg/dL (0.0-1.0); Blood Urea Nitrogen 44 mg/dl (8-23); Calcium 7.9 mg/dl (8.6-10.4); Carbon Dioxide 23 mmol/L (22-30); Glucose 90 mg/dL (70-105); Lactate Dehydrogenase 170 U/L (94-250); Phosphorous 4.8 mg/dL (2.7-4.5); Triglycerides 121 mg/dl (<150); Uric Acid 5.4 mg/dL (2.5-8.0)
[2019-11-19 06:45] LABS: Chloride 95 mmol/L (96-108); Glomerular Filtration Rate 6
[2019-11-19] MEDS ORDERED: POTASSIUM CHLORIDE 20 MEQ/15 ML ML PO ONE (07:32)
[2019-11-19] MEDS ORDERED: MAGNESIUM SULFATE 2 GM/50 ML BAG IV ONE (07:33)
[2019-11-19] MEDS ORDERED: PIPERACILLIN SODIUM/TAZOBACTAM 2.25 GM in DEXTROSE 5% IN WATER 50 ML IV SCH (08:00)
[2019-11-19] MEDS: HEPARIN 5,000 UNIT/ML VIAL SQ SCH ×2 (08:00→20:48)
[2019-11-19] MEDS: DOCUSATE SODIUM 100 MG CAPSULE PO SCH ×2 (08:01→20:41)
[2019-11-19] MEDS: MULTIVIT,THER IRON,CA,FA & MIN 1 TABLET PO SCH (08:01)
[2019-11-19] MEDS: ACETAMINOPHEN 325 MG TABLET PO PRN (08:01)
--- NOTE | 2019-11-19 08:21 | Internal Med History&Physical ---
Medical - H&P: [facility] Patient information: Note initiated : 11/19/19 at 8:13 am Service Date, if different from initiated Date: [] Patient: Ema Vang a 79 y/o F admitted on 11/19/19 for sepsis, SOB. Chief Complaint: [] Chief complaint: Abdominal pain weakness History of present illness: Ms. Vang is a 79 year old F with a history of HTN, DM, ESRD on PD managed by battery test engineer Dr. Wilson. patient was in her baseline state of health undergoing home peritoneal dialysis. She now presents with lower abdominal discomfort that has progressed over the last few days. Patient has associated shortness of breath. She was evaluated at [facility]. Initial work-up was consistent with sepsis with pneumonia/pyuria and a white count of 16,000. CT chest abdomen pelvis revealed chest infiltrate consistent with pneumonia. Patient was started on antibiotics. Subsequently hospitalist service was consulted in light of need for nephrology consultation. Patient was received at [facility] in stable state. Hemodynamics and vitals stable. Sat 96% on room air. COVID 19 test pending. She denies recent sick contacts or travel. She denies dry or productive cough. She denies headache, myalgias, photophobia, rash or joint pain. Patient was started on vancomycin/Rocephin at [facility]. Review of systems 10 point review system was performed and is negative except ones cussed above Medical - H&P: PMH Medical history: Abdominal pain (Acute) Urinary retention (Acute) Hypertensive renal disease (Chronic) Proteinuria (Chronic) Edema (Chronic) Secondary hyperparathyroidism of renal origin (Chronic) Diabetes mellitus (Chronic) Chronic kidney disease, stage V (Chronic) Vitamin D deficiency (Acute) Sinusitis, chronic (Acute) Seborrheic keratosis (Acute) Renal osteodystrophy (Acute) Overweight (Acute) Osteoporosis (Acute) Obesity (Acute) Insomnia (Chronic) Hyposmolality and/or hyponatremia (Acute) Disorder of magnesium metabolism (Acute) Hypertensive heart disease, benign w/chronic kidney disease stage 1-4 (Acute) Hyperparathyroidism, primary (Acute) Hyperparathyroidism (Acute) Hyperlipidemia (Acute) Hyperkalemia (Acute) Hypercalcemia (Acute) Hypertension (Acute) Gastroesophageal reflux (Acute) Diabetes mellitus, type II (Acute) Depression (Acute) COPD (chronic obstructive pulmonary disease) (Acute) Chronic kidney disease, stage IV (severe) (Acute) Anxiety (Acute) Anemia, iron deficiency (Acute) 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) Acute renal disease (Acute) Past Surgical History Hx of hysterectomy (Acute) Hx of esophagogastroduodenoscopy (Acute) Low back surgery Family History mother Rheumatoid arthritis Malignant neoplasm of colon brother Diabetes mellitus Morbid obesity sister x2 Diabetes mellitus sister Parkinson's Disease Pneumonia, Onset Age: 59 Sister Renal failure Social History Quit smoking 10 years ago denies alcohol use does not use a cane or walker lives at home with her Medical - H&P: Meds Home Medications Medication Instructions Recorded Confirmed Type Lidocaine 1 patch TOPICAL PRN PRN 07/30/18 11/19/19 History Fluticasone/Salmeterol [Advair 1 puff INH Q12 12/04/18 11/19/19 History 250-50 Diskus] Cinacalcet HCl [Sensipar] 60 mg PO QDAY 12/17/18 11/19/19 History Cinacalcet [Sensipar] 30 mg PO QPM 12/17/18 11/19/19 History Folic Acid/Vitamin B Comp W-C 1 tab PO DAILY 12/17/18 11/19/19 History [Diatx] amlodipine 10 mg tablet 10 mg PO QDAY #90 tab 02/19/19 11/19/19 Rx atorvastatin 20 mg tablet 20 mg PO QHS #90 tab 02/20/19 11/19/19 Rx gentamicin 0.1 % topical cream 1 applic TOPICAL QDAY #30 g 06/04/19 11/19/19 Rx cholecalciferol (vitamin D3) 50 2,000 unit PO QDAY #30 cap 07/02/19 11/19/19 Rx mcg (2,000 unit) capsule LORazepam [Ativan] 1 mg PO TIDP PRN #14 tab 11/10/19 11/19/19 Rx Ascorbate Calcium [Vitamin C] 500 mg PO DAILY 11/19/19 11/19/19 History Calcitriol [Rocaltrol] 0.25 mcg PO DAILY 11/19/19 11/19/19 History Ferrous Sulfate 650 mg PO QDAY 11/19/19 11/19/19 History Furosemide [Lasix] 120 mg PO BID 11/19/19 11/19/19 History Loperamide [Imodium] 2 mg PO DAILYP PRN 11/19/19 11/19/19 History Ondansetron HCl [Zofran] 4 mg PO QAM PRN 11/19/19 11/19/19 History Pantoprazole Sodium 20 mg PO QDAY 11/19/19 11/19/19 History Potassium Chloride 40 meq PO DAILY 11/19/19 11/19/19 History Sevelamer Carbonate 0.8 g PO TID 11/19/19 11/19/19 History glipiZIDE [Glucotrol] 2.5 mg PO QAM PRN 11/19/19 11/19/19 History glipiZIDE [Glucotrol] 5 mg PO QPM PRN 11/19/19 11/19/19 History traZODone HCL [Desyrel] 25 mg PO HS 11/19/19 11/19/19 History Allergies Allergy/AdvReac Type Severity Reaction Status Date / Time Penicillins Allergy Mild Hives Verified 11/19/19 03:05 ciprofloxacin [From Cipro] AdvReac Mild "Intoleranc Verified 11/19/19 03:05 e codeine AdvReac Mild Vomiting Verified 11/19/19 03:05 hydrocodone AdvReac Mild Vomiting Verified 11/19/19 03:05 tramadol AdvReac Unknown Unknown Verified 10/01/19 10:54 Medical - H&P: Exam - Constitutional Vitals: Temp Pulse Resp BP Pulse Ox 98.4 F 92 H 20 118/59 96 11/19/19 04:02 11/19/19 04:02 11/19/19 04:02 11/19/19 04:02 11/19/19 04:02 General appearance: no acute distress Exam: Alert oriented Alert oriented Oral cavity dry No ear or nose discharge Head normocephalic S1 and S2 regular, bundle branch Chest clear to auscultation Skin without suspicious lesion Nondistended soft abdomen, peritoneal dialysis catheter noted lower abdomen No lymphedema, ambulating Psych alert cooperative Neuro normal higher function Medical - H&P: Reslt - Labs CBC & Chem 7: 11/20/19 04:51 11/20/19 04:51 Labs: Short CBC 11/19/19 Range/Units 05:10 WBC 12.3 H (4.50-11.00) K/mcL Hgb 8.0 L (11.2-15.7) g/dL Hct 25.5 L (34.1-44.9) % Plt Count 352 (140-440) K/mcL BMP 11/19/19 05:10 Sodium 135 Potassium 2.8 L* Chloride 95 L Carbon Dioxide 23 BUN 44 H Creatinine 5.9 H* Glucose 90 Calcium 7.9 L Liver Function 11/19/19 Range/Units 05:10 Total Bilirubin 0.2 (0.0-1.0) mg/dL Direct Bilirubin < 0.2 (0.0-0.3) mg/dL GGT 16 (5-36) U/L AST 12 (0-37) U/l ALT 8 (0-40) U/l Alkaline Phosphatase 64 (39-117) U/L Albumin 2.4 L (3.2-5.2) gm/dL Medical - H&P: A/P (1) Pneumonia Current visit: Yes Status: Acute * Community-acquired pneumonia. PSI score 100, initiate antibiotic coverage. Currently on room air. * Sepsis with leukocytosis 16,000. Continue management protocol. * Complicated UTI-antibiotic coverage and de-escalate based on cultures * Hypokalemia 0.8 and low magnesium 1 continue oral and IV replacement * ESRD on peritoneal dialysis -consult nephrology * Hyperlipidemia -Continue statin * Full code * Prophylaxis Heparin Plan * Antibiotic coverage * PCU admit * Electrolyte replacement * Droplet precaution * Nephrology consult * PT OT nutrition support Medical - H&P: Qual - VTE Deep Vein Thrombosis/Pulmonary Embolism Present on Admission: Yes
[2019-11-19] MEDS: PIPERACILLIN SODIUM/TAZOBACTAM 2.25 GM in DEXTROSE 5% IN WATER 50 ML IV SCH ×2 (13:37→21:20)
[2019-11-19] MEDS ORDERED: POTASSIUM CHLORIDE 20 MEQ/10 ML VIAL IV ONE ×2 (14:45→21:00)
--- NOTE | 2019-11-19 17:43 | Nephrology Consult Note ---
History of Present Illness - Reason for Consult Patient information: Note initiated : 11/19/19 at 5:41 pm Service Date, if different from initiated Date: [] Patient: Ema Vang a 79 y/o F admitted on 11/19/19 for sepsis, SOB. Chief Complaint: [] Consult date: 11/19/19 end stage renal disease, hypokalemia Requesting physician: Dalton Buck - Chief Complaint SOB, abd pain and low grade fever - History of Present Illness Ms Vang is a 79 yo white female with multiple medical issues including Hx of HTN, DM type 2, CKD , dyslipidemia who RTC for follow up of her CKD She has CKD V with nephrotic range proteinuria. 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 She had been followed by Dr. Russ and following her departure Dr. SAUCEDA has assumed care of the patient in terms of her dialysis. 2019 was a year full of complications for this patient as I believe she had esophageal obstruction, enterocolitis and C. difficile colitis. The end result of all this was that her peritoneal membrane has become a seive in terms of functioning to prevent large amounts of albumin losses into the peritoneal fluid. This is aggravated her hypo-albuminemia, caused hypocalcemia, which in turn is aggravated her secondary hyperparathyroidism, and she is now chronically hypokalemic. At one time she had hypertension and was on blood pressure medications but these of long since been discontinued. Thus it seems likely this patient runs on the dry side and certainly not hypervolemic. Couple days to a week ago she overdid it with some trazodone and Tylenol PM which he uses for her restless leg syndrome. With then developed was muscle and hand tremor without seizure activity. She eventually presented to the emergency department at [facility] in [facility] with a chief complaint of cough, and a low-grade fever, she insisted that she had clear peritoneal fluid, and was developing upper abdominal pain that seem to bear relationship to taking a deep breath more than what I would call true peritoneal signs as the ambulance ride did not particularly distress her as much is just trying to take a deep breath. At [place] she had a temp of 100.4 respiratory rate between 24 and 30/min, pulse of 124 and a blood pressure of 124/74 with a room air pulse ox of 91%. Out of concern for coronavirus and other respiratory viruses she was placed in isolation while the remainder of her work-up was undertaken,. White count was 16,300 Hemoglobin 8.9 grams per deciliter Hematocrit 27% Platelet count 383,000 Lymphocytes were 12% with an absolute lymphocyte count of 1940/mcL Left radial AVG on room air pH was 7.48 PCO2 is 33.9 PO2 was 49 Bicarb 25 O2 sat was 87% Sodium was 135 Potassium is 2.8 chloride 95 CO2 25 anion gap 15 BUN 48 Creatinine 5.9 GFR is 7 Glucose 106 Calcium 7.9 LFTs were all within normal limits BNP was only 97 Total protein 5.9 albumin 2.8 Procalcitonin was elevated Lactic acid was not elevated D-dimer was elevated Out of concern for impending sepsis the patient was transferred to our institution where she could receive peritoneal dialysis without interruption It is my understanding her peritoneal fluid was sampled at the outside hospital but I do not see the results of that. Today when a sample was obtained by the peritoneal dialysis nurse it was cloudy and yellow with no stranding Chest x-ray had a left lower lobe infiltrate that was confirmed by CT scanning at this referring institution but I have not been able to see these images yet. She is also had a week or 2 of Macrobid for treatment of a urinary tract infection though this would not have much in the way of urinary concentration a nd is probably not very effective in the setting of end-stage renal disease. She received a loading dose of 1 g vancomycin as well as 2 g of Rocephin yesterday Today she received Pipracil and tazobactam adjusted for ESRD, as well as azithromycin for atypical causes of H CAP pneumonia which he would be entered with a left lower lobe infiltrate. Pending at this time is a coronavirus test from the outside hospital and if she is not requiring any supplemental oxygen I do not have any strong reasons to use hydroxychloroquine at this point time. That said she is in isolation here in the ICU pending results of her coronavirus, and to monitor her clinical course carefully. Her outpatient med list from the dialysis unit is as follows: Calcitriol on hold Sensipar 60 mg p.o. every morning and 30 mg p.o. every afternoon Glipizide 2.5 mg in the a.m. and 0 to 5 mg in the p.m. as needed Ferrous fumarate 650 mg tablets take 2 in the AM Renvela 800 mg with meals 3 times daily Vitamin D3 2000 international units a day Advair 1 to 2 puffs every 12 hours as needed Protonix 20 mg a day -I would stop this if you are having trouble with magnesium levels Trazodone 25 mg (half of the 50 mg tablet at bedtime Vitamin C 500 mg in the morning with her iron supplement Atorvastatin 20 mg at bedtime A leg cramp [id number] preparation on a as needed basis Nystatin swish and spit has been discontinued around 08 November Promethazine 25 mg as needed -I would avoid this while giving his azithromycin Loperamide 2 mg as needed diarrhea Macrobid 100 mg twice a day for 7 days has been discontinued Additional medications stopped include amlodipine, furosemide, and I would not g rufino her Zofran until were done with the azithromycin either. 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 difficile colitis Electrolyte abnormalities Hypoalbuminemia due to decreased protein intake and excess protein losses from peritoneal dialysis Anemia of chronic kidney disease Secondary hyperparathyroidism Past surgical history: Peritoneal dialysis catheter placement in 2014 Surgical resection of transitional cell CA of the trigone 2019 Other surgical procedures as found in the admitting physicians note Past family history: Nothing to add to the admitting physician's note which was reviewed Past social history: Non-smoker nondrinker Denies illicit drug use Medications and Allergies Home Medications Medication Instructions Recorded Confirmed Type Lidocaine 1 patch TOPICAL PRN PRN 07/30/18 12/26/18 History Fluticasone/Salmeterol [Advair 1 - 2 puff INH Q12 12/04/18 11/19/19 History 250-50 Diskus] Amino AC/Protein Hydr/Whey Pro 30 ml PO QDAY 12/17/18 12/26/18 History [Prosource Tf Liquid Packet] Cinacalcet HCl [Sensipar] 60 mg PO QDAY 12/17/18 11/19/19 History Cinacalcet [Sensipar] 30 mg PO QPM 12/17/18 11/19/19 History Folic Acid/Vitamin B Comp W-C 1 tab PO DAILY 12/17/18 12/26/18 History [Diatx] Loperamide [Imodium] 2 mg PO PRN PRN #30 cap 12/21/18 11/19/19 Rx amlodipine 10 mg tablet 10 mg PO QDAY #90 tab 02/19/19 Rx atorvastatin 20 mg tablet 20 mg PO QHS #90 tab 02/20/19 11/19/19 Rx gentamicin 0.1 % topical cream 1 applic TOPICAL QDAY #30 g 06/04/19 Rx cholecalciferol (vitamin D3) 50 2,000 unit PO QDAY #30 cap 07/02/19 11/19/19 Rx mcg (2,000 unit) capsule nystatin 100,000 unit/mL oral 400,000 unit PO QID #200 ml 10/29/19 11/19/19 Rx suspension LORazepam [Ativan] 1 mg PO TIDP PRN #14 tab 11/10/19 Rx Ferrous Sulfate 650 mg PO QDAY 11/19/19 11/19/19 History Furosemide [Lasix] 120 mg PO BID 11/19/19 11/19/19 History Ondansetron HCl [Zofran] 4 mg PO QAM PRN 11/19/19 11/19/19 History Pantoprazole Sodium 20 mg PO QDAY 11/19/19 11/19/19 History Potassium Chloride 40 meq PO BID 11/19/19 11/19/19 History Sevelamer Carbonate 0.8 g PO TID 11/19/19 11/19/19 History glipiZIDE [Glucotrol] 2.5 mg PO QAM PRN 11/19/19 11/19/19 History glipiZIDE [Glucotrol] 5 mg PO QPM PRN 11/19/19 11/19/19 History traZODone HCL [Desyrel] 100 mg PO HS 11/19/19 11/19/19 History Allergies Allergy/AdvReac Type Severity Reaction Status Date / Time Penicillins Allergy Mild Hives Verified 11/19/19 03:05 ciprofloxacin [From Cipro] AdvReac Mild "Intoleranc Verified 11/19/19 03:05 e codeine AdvReac Mild Vomiting Verified 11/19/19 03:05 hydrocodone AdvReac Mild Vomiting Verified 11/19/19 03:05 tramadol AdvReac Unknown Unknown Verified 10/01/19 10:54 Exam - Vital Signs Vital signs: Temp Pulse Resp BP Pulse Ox 36.6 C 94 H 22 141/73 96 11/19/19 17:16 11/19/19 14:00 11/19/19 17:16 11/19/19 17:16 11/19/19 17:16 - General Appearance General appearance: appears started age, cachectic, moderate distress, chronically ill EENT: ATNC, PERRL, mucous membranes dry, hearing intact, vision intact Neck: no JVD, no thyromegaly, no carotid bruit Respiratory: no kyphosis, wheezing, course breath sounds, rhonchi (Left lower lobe) Cardiology: mid-systolic murmur, no rub, no gallops, no edema Gastrointestinal: normoactive bowel sounds, no tenderness (Except epigastric and left upper quadrant, PD catheter itself not tender), no guarding Integumentary: no rash, warm and dry Neurologic: no focal deficit, no asterixis, alert and oriented x3, CN 3-12 intact Psychiatric: mood/affect appropriate Results - Lab Results 11/19/19 05:10 11/19/19 05:10 Most recent lab results Calcium 7.9 mg/dl (8.6-10.4) L 11/19/19 05:10 Phosphorus 4.8 mg/dL (2.7-4.5) H 11/19/19 05:10 Magnesium 1.0 mg/dL (1.6-2.5) L 11/19/19 05:10 Assessment and Plan (1) Pneumonia Given the history of fever cough elevated white count and abnormal left lower lobe chest x-ray this is the likely diagnosis. Her pain is somewhat pleuritic worse with deep inspiration It is not clear to me whether her peritoneum has primary peritonitis or if this is more of a "sympathetic reaction" to a pneumonic process on the other side of the diaphragm. This would be similar to a parapneumonic effusion except the effusion is actually peritoneal fluid. That said I would certainly cover causes of peritonitis until we can straighten things out, but I would treat her like an hospital-acquired pneumonia since on a monthly basis she is at the dialysis unit and is not a true community-acquired pneumonia. As for coronavirus at certain parts of her presentation she did have cough, fever, documented hypoxemia on an arterial blood gas, and a CT scan that had a left lower lobe pneumonia but according to the outside physician did not look "viral"-which I assume means no groundglass opacities. 1. Treat for hospital-acquired pneumonia with azithromycin and Zosyn 2. Follow-up on coronavirus testing from referring hospital 3. Blood cultures 4. The lack of sputum production does make me nervous about coronavirus 5. For right now would continue the vancomycin coverage which along with Pipracil and tazobactam should be adequate for bacterial causes of peritonitis. 6. I am putting great sang in the patient's report that her peritoneal fluid was clear Monday night, and the ER physicians report at the referring hospital noted clear peritoneal fluid at their institution, however ours is now cloudy and is been sent off for appropriate studies. 7. This patient will require careful monitoring as patients with peritoneal dialysis do not have the vital capacity that someone without a couple liters of fluid in her abdomen would have and as such could decompensate quickly. Status: Acute (2) ESRD on peritoneal dialysis This patient has longstanding end-stage renal disease of approximately 5 years duration. She is no longer an optimal candidate for CCPD, however traveling 3 times a week to a dialysis unit is problematic at best for this patient. Her peritoneal membrane leaks albumin as mentioned in the HPI causing problems with electrolytes, maintaining hemodynamic stability, and finally problems with the management of secondary hyperparathyroidism. 1. Dialysis orders have been written and will be adjusted on a daily basis 2. Tomorrow I plan on adding vancomycin to her dialysate to maintain a level of 15-20 without the inconvenience of using IV vancomycin 3. I have added potassium to her dialysate to make the final concentration 3.0 mEq/L 4. All this is been discussed with the primary ICU nurse as well [facility] Status: Chronic Priority: Medium (3) Abdominal pain While I cannot rule out peritonitis this is kind of an odd presentation and I am hoping that it is more of sympathetic reaction to a left lower lobe pneumonia as opposed to a true peritonitis. The timing does not add up as long as the information were being told is accurate. In addition emperic antibiotics in a patient who had 2 hospitalizations last year for enterocolitis and C. difficile colitis is fraught with risk and I would like to minimize her antibiotic exposure once we have a better handle on what is going on. 1. Azithromycin 500 mg orally for 4 days 2. Vancomycin intraperitoneally to maintain a level of 15-20, to be discontinued if there is no staph or strep in her abdomen 3. Pipracillin and tazobactam for H CAP pneumonia coverage along with the azithromycin 4. Serial white count, inflammatory biomarkers, daily cell count differential from the peritoneal fluid, and monitoring of clinical course Status: Acute Priority: High Qualifiers: Abdominal location: lower abdomen, unspecified Qualified Code(s): R10.30 - Lower abdominal pain, unspecified (4) Hypokalemia Due to losses from the perineum Place on a regular diet she needs all the protein and electrolytes she can tolerate orally Add supplemental potassium to her peritoneal dialysate to minimize losses, a final concentration of 3.0 mEq/L should at least try and keep her potassium around 3 Monitor and replace magnesium as needed Status: Acute Priority: Medium (5) Hypomagnesemia Again poor intake and increased peritoneal, fluid losses Replace IV on a daily basis Status: Acute Priority: Medium (6) Anemia due to end stage renal disease Weekly Aranesp Status: Chronic Priority: Medium (7) Secondary hyperparathyroidism of renal origin 1. Calcitriol on hold 2. Sensipar 60 mg every morning and 30 mg every afternoon 3. Hold Renvela and monitor phosphorus 4. Continue vitamin D3 2000 international units a day Status: Chronic Priority: Medium
[2019-11-19] MEDS: AZITHROMYCIN 250 MG TABLET PO SCH (17:44)
[2019-11-19 18:50] LABS: Total Protein,Peritoneal Fluid 0.4 gm/dL
[2019-11-19 18:57] LABS: Mesothelial,Peritoneal Fluid 5 %; Monocyte,Peritoneal Fluid 1 %; Neutrophils,Peritoneal Fluid 87 %; Nucleated Cel,Peritoneal Fluid 1501 /cumm; RBC,Peritoneal Fluid < 50000 /cumm
[2019-11-19] MEDS ORDERED: ONDANSETRON 4 MG ODT TABLET PO PRN (20:18)
[2019-11-19] MEDS ORDERED: LORazepam 1 MG TABLET PO PRN (20:18)
[2019-11-19] MEDS: SENNOSIDES/DOCUSATE SODIUM 1 TAB TABLET PO SCH (20:48)
[2019-11-19] MEDS: ATORVASTATIN 20 MG TABLET PO SCH (20:48)
[2019-11-19] MEDS: FUROSEMIDE 80 MG TABLET PO SCH (20:48)
[2019-11-19] MEDS: CINACALCET 30 MG TABLET PO SCH (20:48)
[2019-11-19] MEDS ORDERED: traZODone HCL 50 MG TABLET ONE (20:48)
[2019-11-19] MEDS: traZODone HCL 50 MG TABLET PO SCH (20:49)
[2019-11-19] MEDS: FLUTICASONE/SALMETEROL 250/50 INHALER #14 INH SCH (20:49)
[2019-11-19] MEDS ORDERED: traZODone HCL 50 MG TABLET PO SCH (21:00)
[2019-11-19] MEDS: PRAMIPEXOLE 0.25 MG TABLET PO SCH (22:18)
[2019-11-20] MEDS: PIPERACILLIN SODIUM/TAZOBACTAM 2.25 GM in DEXTROSE 5% IN WATER 50 ML IV SCH ×3 (05:52→21:20)
[2019-11-20] MEDS: 0.9 % SODIUM CHLORIDE 10 ML SYRINGE IV SCH ×3 (05:53→20:46)
[2019-11-20 06:23] LABS: Hematocrit 31.1 % (34.1-44.9); Hemoglobin 9.5 g/dL (11.2-15.7); Mean Cell Volume 87.6 fL (80.0-100.0); Mean Corpuscular HGB Conc 30.5 g/dL (31.0-36.0); Mean Platelet Volume 9.3 fL (7.4-10.4); Platelet Count 430 K/mcL (140-440); RBC 3.55 M/mcL (3.59-5.38); Red Cell Distribution Width 14.7 % (11.5-14.5); WBC 11.1 K/mcL (4.50-11.00)
[2019-11-20 06:45] LABS: ALT/SGPT 8 U/l (0-40); AST/SGOT 15 U/l (0-37); Albumin 2.7 gm/dL (3.2-5.2); Albumin/Globulin Ratio 0.8 (1.0-2.3); Alkaline Phosphatase 75 U/L (39-117); Bilirubin,Direct < 0.2 mg/dL (0.0-0.3); Bilirubin,Total 0.2 mg/dL (0.0-1.0); Blood Urea Nitrogen 41 mg/dl (8-23); C-Reactive Protein 14.9 mg/dl (0.0-0.8); Carbon Dioxide 23 mmol/L (22-30); Globulin 3.5 gm/dL (2.2-3.7); Glucose 160 mg/dL (70-105); Lactate Dehydrogenase 198 U/L (94-250); Phosphorous 5.2 mg/dL (2.7-4.5); Triglycerides 124 mg/dl (<150); Uric Acid 5.3 mg/dL (2.5-8.0)
[2019-11-20 06:46] LABS: Vancomycin,Random 9.2 ug/mL
[2019-11-20 06:54] LABS: Chloride 94 mmol/L (96-108); Glomerular Filtration Rate 7
[2019-11-20] MEDS: FLUTICASONE/SALMETEROL 250/50 INHALER #14 INH SCH ×2 (07:15→20:45)
[2019-11-20] MEDS: DOCUSATE SODIUM 100 MG CAPSULE PO SCH ×2 (07:17→19:23)
[2019-11-20 07:22] LABS: Anisocytosis 1+ (NONE SEEN); Basophils % (Manual) 1 % (0-2); Eosinophils % (Manual) 2 % (0-7); Lymphocytes % 21 % (15-49); Monocytes % (Manual) 4 % (1-12); Platelet Estimate NORMAL (NORMAL); RBC Morphology ABNORMAL (NORMAL); Segmented Neutrophils % 72 % (38-78)
[2019-11-20] MEDS ORDERED: amLODIPine 10 MG TABLET PO SCH (09:00)
[2019-11-20] MEDS: AZITHROMYCIN 250 MG TABLET PO SCH (09:14)
[2019-11-20] MEDS: ASCORBIC ACID 500 MG TABLET PO SCH (09:14)
[2019-11-20] MEDS: HEPARIN 5,000 UNIT/ML VIAL SQ SCH ×2 (09:14→20:45)
[2019-11-20] MEDS: LOPERAMIDE 2 MG CAPSULE PO PRN (09:15)
[2019-11-20] MEDS: PANTOPRAZOLE 40 MG TABLET PO SCH (09:15)
[2019-11-20] MEDS: ACETAMINOPHEN 325 MG TABLET PO PRN (09:15)
[2019-11-20] MEDS: SEVELAMER 800 MG TABLET PO SCH ×3 (09:15→17:37)
[2019-11-20] MEDS: MULTIVIT,THER IRON,CA,FA & MIN 1 TABLET PO SCH (09:15)
[2019-11-20] MEDS: POTASSIUM CHLORIDE 20 MEQ PACKET PO SCH (09:16)
[2019-11-20] MEDS: FOLIC ACID/VITAMIN B COMP W-C 1 TAB TABLET PO SCH (09:24)
[2019-11-20] MEDS: CALCITRIOL 0.25 MCG CAPSULE PO SCH (09:24)
[2019-11-20] MEDS: CINACALCET 30 MG TABLET PO SCH ×2 (09:24→20:44)
[2019-11-20] MEDS: FUROSEMIDE 80 MG TABLET PO SCH ×2 (09:25→20:44)
[2019-11-20] MEDS: FERROUS SULFATE 325 MG TABLET PO SCH (09:25)
[2019-11-20] MEDS: VITAMIN D3 1,000 UNIT TABLET PO SCH (09:25)
[2019-11-20] MEDS ORDERED: VANCOMYCIN 1,000 MG in 0.9 % SODIUM CHLORIDE 250 ML IV ONE (10:15)
--- NOTE | 2019-11-20 10:22 | Nephrology Progress Note ---
Subjective Patient information: Note initiated : 11/20/19 at 10:20 am Service Date, if different from initiated Date: [] Patient: Ema Vang 79 y/o F admitted on 11/19/19 for sepsis, SOB. Chief Complaint: [] Principal diagnosis: ESRD Interval history: asleep at the time of my visit. PD RN present in the ICU Vanc level below 15, WBC count improving Pertinent ROS: Physical exam No acute distress Supple neck Nonlabored respirations Regular rate and rhythm, no edema Objective - Vital Signs Vital signs: Vital Signs Temp Pulse Resp BP Pulse Ox 11/20/19 09:27 36.7 C 139/62 11/20/19 08:00 93 H 21 134/73 99 11/20/19 07:01 36.7 C 22 119/61 98 11/20/19 06:00 21 135/66 99 11/20/19 04:01 19 140/68 95 11/20/19 03:01 16 140/58 91 11/20/19 02:01 17 141/60 98 11/20/19 01:21 96 H 28 H 97 11/20/19 01:03 19 127/59 99 11/20/19 00:02 36.7 C 17 107/55 97 11/19/19 23:01 21 139/64 98 11/19/19 22:02 20 124/94 96 11/19/19 21:01 25 H 161/89 11/19/19 20:15 37.1 C 141/100 11/19/19 20:01 36.8 C 24 H 141/100 95 11/19/19 19:49 95 11/19/19 19:01 27 H 151/71 93 11/19/19 18:01 17 132/56 85 L 11/19/19 17:16 36.6 C 22 141/73 96 11/19/19 17:01 19 125/82 98 11/19/19 16:00 36.9 C 22 155/68 98 11/19/19 15:00 19 141/57 97 11/19/19 14:00 94 H 21 122/64 98 11/19/19 13:52 19 116/59 97 11/19/19 12:00 36.7 C 19 130/63 95 11/19/19 11:01 20 116/54 95 Intake and Output 0411/20/19 11/20/19 21:59 05:59 13:59 Intake Total 340 50 Output Total 125 350 Balance 215 -350 50 Intake: IV 100 50 Zosyn 2.25 gm In Dextrose 5% in 100 50 Water 50 ml @ 100 mls/hr IV Q8H [facility] Rx#:[id number] Oral 240 Output: Void Amount 125 350 Other: Meal Dinner Percent of Meal Consumed 100% Feeding Ability Independent Urine Appearance Cloudy Clear Clear Urine Color Straw Bright Yellow Bright Yellow Urine Odor Normal Normal Normal Stool Size Moderate Moderate Moderate Stool Color Brown Brown Brown Stool Consistency Loose Loose Soft # Bowel Movements 1 1 # of times incontinent of 1 Bowels Weight 66.877 kg Intake & Output: Intake & Output 11/19/19 11/20/19 11/20/19 21:59 05:59 13:59 Intake Total 340 50 Output Total 125 350 Balance 215 -350 50 Weight 66.877 kg Intake: IV 100 50 Zosyn 2.25 gm In Dextrose 5% in 100 50 Water 50 ml @ 100 mls/hr IV Q8H [facility] Rx#:[id number] Oral 240 Output: Void Amount 125 350 Other: Meal Dinner Percent of Meal Consumed 100% Feeding Ability Independent Urine Appearance Cloudy Clear Clear Urine Color Straw Bright Yellow Bright Yellow Urine Odor Normal Normal Normal Stool Size Moderate Moderate Moderate Stool Color Brown Brown Brown Stool Consistency Loose Loose Soft # Bowel Movements 1 1 # of times incontinent of 1 Bowels Cardiology: no edema, regular rate, regular rhythm Integumentary: warm and dry - Lab 11/20/19 04:51 11/20/19 04:51 Most recent lab results Calcium 9.0 mg/dl (8.6-10.4) 11/20/19 04:51 Phosphorus 5.2 mg/dL (2.7-4.5) H 11/20/19 04:51 Magnesium 1.6 mg/dL (1.6-2.5) 11/20/19 04:51 Assessment and Plan (1) ESRD (end stage renal disease) Status: Chronic Priority: Medium (2) Iron deficiency anemia Status: Acute Priority: Medium (3) Hypokalemia Status: Acute Priority: Medium (4) Pneumonia Status: Acute Priority: High - Narrative A/P Narrative: ESRD on PD. Denies she will continue PD per home prescription with the exception of K addition. We will use 1.5% dextrose solution, total 8.42 L, 5 cycles, over 9 hours. We will add 3 mEq potassium per liter. 11/19/2019 PD fluid 100 nucleated cells out of which 87 neutrophils. Gram stain showed no organisms, no budding yeast or fungal elements. pending culture. The patient is currently covered with vancomycin IV, Zosyn, azithromycin for pneumonia. Random vancomycin level was 9.2. The dose will be repeated per pharmacy today. start nystatin for prevention of fungal peritonitis Left lower lobe consolidation Most consistent with pneumonia. I personally reviewed the CT scan that was done at outside facility Check urine Legionella and strep antigen. Otherwise management per hospitalist acid base Bicarbonate 23. Balance maintained with dialysis. bone mineral Calcium within lab reference range. Mild hyperphosphatemia to 5.2. Magnesium corrected to 1.6. Alkaline phosphatase within lab reference range. hemodynamics- volume Clinically euvolemic. Blood pressure acceptable with values between 107/55- 141/69. Serum albumin 2.7, agree the patient most likely has peritoneal loss of protein. Furthermore she has an infection. As an outpatient she receives intraperitoneal protein and this will be continued. Hold amlodipine. As needed clonidine 0.1 mg for systolic blood pressure over 150. BUN/K 41/3. Potassium improved with supplementation Continue electrolyte protocol. I will add 3 mEq of potassium per liter of dialysate for a total 24 mEq. This was discussed with the pharmacist. hematologic Leukocytosis improving, 11.1 Hemoglobin 9.5 She has iron deficiency anemia, however she refused IV infusions in the past as she cannot tolerate them well. She continues on p.o. iron with ascorbic acid at home. He has absorption is poor. Furthermore she had restless leg syndrome, and I had explained to her that iron would probably help. check H and H in am. if still below 10, will give 25mcg aranesp Physical Examination Vital signs: Temp Pulse Resp BP Pulse Ox 36.7 C 98 H 20 93/78 100 11/20/19 12:00 11/20/19 13:43 11/20/19 13:48 11/20/19 13:48 11/20/19 13:48 General appearance: no acute distress Effort: normal Cardiovascular: regular rate and rhythm Extremities: no cyanosis, no edema
--- NOTE | 2019-11-20 11:17 | Internal Med Progress Note ---
Medical - PN: Subj Patient information: Note initiated : 11/20/19 at 11:15 am Service Date, if different from initiated Date: [] Patient: Ema Vang a 79 y/o F admitted on 11/19/19 for sepsis, SOB. Chief Complaint: [] Interval history: Ms. Vang is a 79 year old F with a history of HTN, DM, ESRD on PD managed by embroidery cutter Dr. Wilson. patient was in her baseline state of health undergoing home peritoneal dialysis. She now presents with lower abdominal discomfort that has progressed over the last few days. Patient has associated shortness of breath. She was evaluated at [facility]. Initial work-up was consistent with sepsis with pneumonia/pyuria and a white count of 16,000. CT ch est abdomen pelvis revealed chest infiltrate consistent with pneumonia. Patient was started on antibiotics. Subsequently hospitalist service was consulted in light of need for nephrology consultation. Patient was received at [facility] in stable state. Hemodynamics and vitals stable. Sat 96% on room air. COVID 19 test pending. She denies recent sick contacts or travel. She denies dry or productive cough. She denies headache, myalgias, photophobia, rash or joint pain. Patient was started on vancomycin/Rocephin at [facility]. 11/19-coronavirus testing pending. Ongoing peritoneal dialysis per nephrology. On antibiotic coverage for pneumonia. Improving electrolytes with replacement as per nephrology. No overnight fever chills. White count down to 11.1. Corrected QT 495. Hold hydroxychloroquine for now in the absence of symptoms. - Constitutional Vitals: Vital Signs Temp Pulse Resp BP Pulse Ox 97.6 F 93 H 21 129/61 100 11/20/19 10:00 11/20/19 08:00 11/20/19 11:00 11/20/19 11:00 11/20/19 11:00 Period Temp Pulse Resp BP Sys/Hartman Pulse Ox Last 24 Hr 97.6 F-98.7 F 93-96 16-28 107-161/55-100 85-100 Intake and Output 11/19/19 11/20/19 11/20/19 21:59 05:59 13:59 Intake Total 340 300 Output Total 125 350 400 Balance 215 -350 -100 Weight 147 lb 7 oz Intake & Output: Intake & Output 11/19/19 11/20/19 11/20/19 21:59 05:59 13:59 Intake Total 340 300 Output Total 125 350 400 Balance 215 -350 -100 Weight 147 lb 7 oz Intake: IV 100 300 Zosyn 2.25 gm In Dextrose 5% in 100 50 Water 50 ml @ 100 mls/hr IV Q8H [facility] Rx#:[id number] Vancomycin 1,000 mg In Sodium 250 Chloride 0.9% 250 ml @ 250 mls/ hr IV ONCE ONE Rx#:[id number] Oral 240 Output: Void Amount 125 350 400 Other: Meal Dinner Percent of Meal Consumed 100% Feeding Ability Independent Urine Appearance Cloudy Clear Clear Urine Color Straw Bright Yellow Bright Yellow Urine Odor Normal Normal Normal Stool Size Moderate Moderate Moderate Stool Color Brown Brown Brown Stool Consistency Loose Loose Soft # Bowel Movements 1 1 1 # of times incontinent of 1 Bowels General appearance: no acute distress Exam: Alert oriented Nonlabored breathing No anxiety Nondistended abdomen Medical - PN: Obj Da - Labs CBC & Chem 7: 11/21/19 04:21 11/21/19 04:21 Labs: Abnormal Lab Results 11/20/19 11/20/19 11/19/19 04:51 04:51 05:10 WBC 11.1 H 12.3 H RBC 3.55 L 2.93 L Hgb 9.5 L 8.0 L Hct 31.1 L 25.5 L MCHC 30.5 L RDW 14.7 H 14.8 H Gran # 8.19 H [place] # (Auto) 1.21 H Anisocytosis 1+ A Potassium 3.0 L Chloride 94 L Anion Gap 18.0 H BUN 41 H Creatinine 5.5 H* Glucose 160 H Calcium Phosphorus 5.2 H Magnesium C-Reactive Protein 14.9 H Total Protein Albumin 2.7 L Albumin/Globulin Ratio 0.8 L 11/19/19 05:10 WBC RBC Hgb Hct MCHC RDW Gran # [place] # (Auto) Anisocytosis Potassium 2.8 L* Chloride 95 L Anion Gap 17.0 H BUN 44 H Creatinine 5.9 H* Glucose Calcium 7.9 L Phosphorus 4.8 H Magnesium 1.0 L C-Reactive Protein Total Protein 5.4 L Albumin 2.4 L Albumin/Globulin Ratio 0.8 L Meds: Medications Acetaminophen (Tylenol) 650 mg PO Q4-6HP PRN; Protocol PRN Reason: Per Pain Protocol/Fever > 101 Last Admin: 11/20/19 09:15 Dose: 650 mg Documented by: Amlodipine Besylate (Norvasc) 10 mg PO QDAY [facility] Last Admin: 11/20/19 09:15 Dose: 10 mg Documented by: Ascorbic Acid (Vitamin C) 500 mg PO DAILY [facility] Last Admin: 11/20/19 09:14 Dose: 500 mg Documented by: Atorvastatin Calcium (Lipitor) 20 mg PO QHS [facility] Last Admin: 11/19/19 20:48 Dose: 20 mg Documented by: Azithromycin (Zithromax) 500 mg PO DAILY [facility]; Protocol Stop: 11/22/19 09:01 Last Admin: 11/20/19 09:14 Dose: 500 mg Documented by: Bisacodyl (Dulcolax) 10 mg [place] Q2-3DAYS PRN PRN Reason: Constipation Calcitriol (Rocaltrol) 0.25 mcg PO DAILY [facility] Last Admin: 11/20/19 09:24 Dose: 0.25 mcg Documented by: Cinacalcet (Sensipar) 30 mg PO QPM [facility] Last Admin: 11/19/19 20:48 Dose: 30 mg Documented by: Cinacalcet (Sensipar) 60 mg PO QDAY [facility] Last Admin: 11/20/19 09:24 Dose: 60 mg Documented by: Docusate Sodium (Colace) 100 mg PO BID [facility] Last Admin: 11/20/19 07:17 Dose: Not Given Documented by: Ferrous Sulfate (Ferrous Sulfate) 650 mg PO QDAY [facility] Last Admin: 11/20/19 09:25 Dose: 650 mg Documented by: Furosemide (Lasix) 120 mg PO BID [facility] Last Admin: 11/20/19 09:25 Dose: 120 mg Documented by: Heparin Sodium (Porcine) (Heparin) 5,000 unit SQ Q12 [facility] Last Admin: 11/20/19 09:14 Dose: 5,000 unit Documented by: Piperacillin Sod/Tazobactam (Sod 2.25 gm/ Dextrose) 50 mls @ 100 mls/hr IV Q8H [facility]; Protocol Last Infusion: 11/20/19 06:30 Dose: Infused Documented by: Iron Carb/Multivit/[place]/Folic Acid (Multivitamin W/Minerals) 1 tab PO DAILY [facility] Last Admin: 04/08/20 09:15 Dose: 1 tab Documented by: Loperamide HCl (Imodium) 2 mg PO DAILYP PRN PRN Reason: Diarrhea Last Admin: 11/20/19 09:15 Dose: 2 mg Documented by: Lorazepam (Ativan) 1 mg PO TIDP PRN PRN Reason: Muscle Spasm Last Admin: 11/19/19 22:12 Dose: 1 mg Documented by: Melatonin (Melatonin 3mg Tablet) 3 mg PO HSP PRN PRN Reason: Insomnia Multivit/Ca Carb/B Cmplx/FA/Prenat (Diatx) 1 tab PO DAILY [facility] Last Admin: 11/20/19 09:24 Dose: 1 tab Documented by: Ondansetron HCl (Zofran Odt) 4 mg SL Q4-6HP PRN; Protocol PRN Reason: Nausea And Vomiting Ondansetron HCl (Zofran) 4 mg IV Q4-6HP PRN; Protocol PRN Reason: Nausea And Vomiting Pantoprazole [facility]ix) [facility] Last Admin: 11/20/19 09:15 Dose: 40 mg Documented by: Polyethylene Glycol (Miralax) 17 gm PO DAILYP PRN PRN Reason: Constipation Potassium [facility] ([facility]Con) [facility] Last Admin: 11/20/19 09:16 Dose: 40 meq Documented by: Pramipexole Dihydrochloride (Mirapex) 0.25 mg PO [facility] Last Admin: 11/19/19 22:18 Dose: 0.25 mg Documented by: Fluticasone/Salmeterol (Advair 250-50 Diskus) 1 puff INH Q12 [facility] Last Admin: 11/20/19 07:15 Dose: Not Given Documented by: Senna/Docusate Sodium (Senna Plus Tablet) 1 tab PO [facility] Last Admin: 11/19/19 20:48 Dose: Not Given Documented by: Sevelamer Carbonate (Renvela) 1,600 mg PO TIDCC [facility] Last Admin: 11/20/19 09:15 Dose: 1,600 mg Documented by: Sodium Chloride (Saline Flush) 10 ml IV Q8 [facility] Last Admin: 11/20/19 05:53 Dose: 10 ml Documented by: Trazodone HCl (Desyrel) 25 mg PO [facility] Last Admin: 04/07/20 20:49 Dose: 25 mg Documented by: Vancomycin HCl (Vancomycin Per Pharmacy) 1 order IV UD [facility]; Protocol Vitamin D (Vitamin D3) 2,000 unit PO QDAY [facility] Last Admin: 11/20/19 09:25 Dose: 2,000 unit Documented by: Medical - PN: A/P - Time Spent With Patient Total time spent is greater than 50% in coordination of care (as documented) at patient's floor/unit and/or counseling patient: 25 - 35 minutes (1) Pneumonia Status: Acute Assessment and plan: * Community-acquired pneumonia. PSI score 100, clinically improving on antibiotic coverage. * Sepsis secondary above, white count down to 11,000. Continue management per protocol. * Complicated UTI-antibiotic coverage and de-escalate based on cultures * Hypokalemia improving * Low magnesium improving with replacement * ESRD on peritoneal dialysis -management per nephrology * Hyperlipidemia -Continue statin * Full code * Prophylaxis Heparin Plan * Continue electrolyte replacement * Maintain droplet precaution * ESRD management per nephrology * PT OT nutrition support Current Visit: Yes Medical - PN: Qual - VTE Deep Vein Thrombosis/Pulmonary Embolism Present on Admission: Yes
[2019-11-20] MEDS: NYSTATIN 500,000 UNITS/5 ML ORAL.SUSP SSW SCH ×2 (17:37→20:43)
[2019-11-20] MEDS ORDERED: POTASSIUM CHLORIDE 20 MEQ/10 ML VIAL IV ONE (20:00)
[2019-11-20] MEDS: PRAMIPEXOLE 0.25 MG TABLET PO SCH (20:44)
[2019-11-20] MEDS: SENNOSIDES/DOCUSATE SODIUM 1 TAB TABLET PO SCH (20:45)
[2019-11-20] MEDS: ATORVASTATIN 20 MG TABLET PO SCH (20:45)
[2019-11-20] MEDS: traZODone HCL 50 MG TABLET PO SCH (20:45)
[2019-11-21 05:57] LABS: Hematocrit 27.7 % (34.1-44.9); Hemoglobin 8.4 g/dL (11.2-15.7); Mean Cell Volume 88.8 fL (80.0-100.0); Mean Corpuscular HGB Conc 30.3 g/dL (31.0-36.0); Mean Platelet Volume 9.6 fL (7.4-10.4); Platelet Count 398 K/mcL (140-440); RBC 3.12 M/mcL (3.59-5.38); Red Cell Distribution Width 14.8 % (11.5-14.5); WBC 8.6 K/mcL (4.50-11.00)
[2019-11-21] MEDS: 0.9 % SODIUM CHLORIDE 10 ML SYRINGE IV SCH ×4 (06:00→22:16)
[2019-11-21] MEDS: PIPERACILLIN SODIUM/TAZOBACTAM 2.25 GM in DEXTROSE 5% IN WATER 50 ML IV SCH ×3 (06:00→22:15)
[2019-11-21 06:47] LABS: Chloride 95 mmol/L (96-108)
[2019-11-21] MEDS: PANTOPRAZOLE 40 MG TABLET PO SCH (06:48)
[2019-11-21 06:52] LABS: ALT/SGPT 7 U/l (0-40); AST/SGOT 11 U/l (0-37); Albumin 2.5 gm/dL (3.2-5.2); Albumin/Globulin Ratio 0.8 (1.0-2.3); Alkaline Phosphatase 65 U/L (39-117); Bilirubin,Direct < 0.2 mg/dL (0.0-0.3); Bilirubin,Total < 0.2 mg/dL (0.0-1.0); Blood Urea Nitrogen 38 mg/dl (8-23); Calcium 8.7 mg/dl (8.6-10.4); Carbon Dioxide 29 mmol/L (22-30); Glomerular Filtration Rate 8; Glucose 167 mg/dL (70-105); Lactate Dehydrogenase 169 U/L (94-250); Triglycerides 92 mg/dl (<150); Uric Acid 5.3 mg/dL (2.5-8.0)
[2019-11-21 07:17] LABS: Anisocytosis FEW (NONE SEEN); Eosinophils % (Manual) 4 % (0-7); Lymphocytes % 23 % (15-49); Monocytes % (Manual) 2 % (1-12); Myelocytes % 1 % (0-0); Platelet Estimate NORMAL (NORMAL); RBC Morphology ABNORM (NORMAL); Segmented Neutrophils % 70 % (38-78)
[2019-11-21 08:22] LABS: Vancomycin,Random 18.2 ug/mL
[2019-11-21] MEDS: DOCUSATE SODIUM 100 MG CAPSULE PO SCH ×2 (08:52→22:15)
[2019-11-21] MEDS: FLUTICASONE/SALMETEROL 250/50 INHALER #14 INH SCH ×2 (08:52→22:15)
--- NOTE | 2019-11-21 09:34 | Internal Med Progress Note ---
Medical - PN: Subj Patient information: Note initiated : 11/21/19 at 9:26 am Service Date, if different from initiated Date: [] Patient: Ema Vang a 79 y/o F admitted on 11/19/19 for sepsis, SOB. Chief Complaint: [] Interval history: Ms. Vang is a 79 year old F with a history of HTN, DM, ESRD on PD managed by match up worker Dr. Wilson. patient was in her baseline state of health undergoing home peritoneal dialysis. She now presents with lower abdominal discomfort that has progressed over the last few days. Patient has associated shortness of breath. She was evaluated at [facility]. Initial work-up was consistent with sepsis with pneumonia/pyuria and a white count of 16,000. CT chest abdomen pelvis revealed chest infiltrate consistent with pneumonia. Patient was started on antibiotics. Subsequently hospitalist service was consulted in light of need for nephrology consultation. Patient was received at [facility] in stable state. Hemodynamics and vitals stable. Sat 96% on room air. COVID 19 test pending. She denies recent sick contacts or travel. She denies dry or productive cough. She denies headache, myalgias, photophobia, rash or joint pain. Patient was started on vancomycin/Rocephin at [facility]. 11/19-coronavirus testing pending. Ongoing peritoneal dialysis per nephrology. On antibiotic coverage for pneumonia. Improving electrolytes with replacement as per nephrology. No overnight fever chills. White count down to 11.1. Corrected QT 495. Hold hydroxychloroquine for now in the absence of symptoms. 11/20-patient doing well. No overnight events. On room air. Improving white count 8.6. Potassium 3.4. Peritoneal fluid aspirate cultures negative. Coronavirus testing pending - Constitutional Vitals: Vital Signs Temp Pulse Resp BP Pulse Ox 98.6 F 93 H 16 121/59 95 11/21/19 08:57 11/21/19 07:33 11/21/19 08:01 11/21/19 08:57 11/21/19 08:01 Period Temp Pulse Resp BP Sys/Hartman Pulse Ox Last 24 Hr 97.6 F-98.7 F 91-98 10-24 93-141/44-78 94-100 Intake and Output 11/20/19 11/21/19 11/21/19 21:59 05:59 13:59 Intake Total 460 50 Output Total 300 50 Balance 160 -50 50 Weight 152 lb 9.6 oz Intake & Output: Intake & Output 11/20/19 11/21/19 11/21/19 21:59 05:59 13:59 Intake Total 460 50 Output Total 300 50 Balance 160 -50 50 Weight 152 lb 9.6 oz Intake: Nourishment/Supplement quantity 360 (ml) IV 100 50 Zosyn 2.25 gm In Dextrose 5% in 100 50 Water 50 ml @ 100 mls/hr IV Q8H [facility] Rx#:[id number] Output: Void Amount 100 50 Urine/Stool Mix 200 Other: Meal Dinner Percent of Meal Consumed 50% Nourishment/Supplement name Nepro Urine Appearance Clear Clear Urine Color Bright Yellow Bright Yellow Urine Odor Normal Stool Size Moderate Smear Smear Stool Color Brown Brown Brown Black Stool Consistency Soft Loose Loose # Bowel Movements 1 General appearance: no acute distress Exam: Alert oriented nonlabored breathing No anxiety Nondistended nontender abdomen Medical - PN: Obj Da - Labs CBC & Chem 7: 11/21/19 04:21 11/21/19 04:21 Labs: Abnormal Lab Results 11/21/19 11/21/19 11/20/19 04:21 04:21 04:51 WBC RBC 3.12 L Hgb 8.4 L Hct 27.7 L MCHC 30.3 L RDW 14.8 H Gran # [place] # (Auto) Myelocytes % 1 H RBC Morphology Abnorm A Anisocytosis Few A Potassium 3.0 L Chloride 95 L 94 L Anion Gap 18.0 H BUN 38 H 41 H Creatinine 5.1 H* 5.5 H* Glucose 167 H 160 H Calcium Phosphorus 5.0 H 5.2 H Magnesium C-Reactive Protein 14.9 H Total Protein 5.5 L Albumin 2.5 L 2.7 L Albumin/Globulin Ratio 0.8 L 0.8 L 11/20/19 11/19/19 11/19/19 04:51 05:10 05:10 WBC 11.1 H 12.3 H RBC 3.55 L 2.93 L Hgb 9.5 L 8.0 L Hct 31.1 L 25.5 L MCHC 30.5 L RDW 14.7 H 14.8 H Gran # 8.19 H [place] # (Auto) 1.21 H Myelocytes % RBC Morphology Anisocytosis 1+ A Potassium 2.8 L* Chloride 95 L Anion Gap 17.0 H BUN 44 H Creatinine 5.9 H* Glucose Calcium 7.9 L Phosphorus 4.8 H Magnesium 1.0 L C-Reactive Protein Total Protein 5.4 L Albumin 2.4 L Albumin/Globulin Ratio 0.8 L Meds: Medications Acetaminophen (Tylenol) 650 mg PO Q4-6HP PRN; Protocol PRN Reason: Per Pain Protocol/Fever > 101 Last Admin: 11/20/19 09:15 Dose: 650 mg Documented by: Ascorbic Acid (Vitamin C) 500 mg PO DAILY [facility] Last Admin: 11/20/19 09:14 Dose: 500 mg Documented by: Atorvastatin Calcium (Lipitor) 20 mg PO QHS [facility] Last Admin: 11/20/19 20:45 Dose: 20 mg Documented by: Azithromycin (Zithromax) 500 mg PO DAILY [facility]; Protocol Stop: 11/22/19 09:01 Last Admin: 11/20/19 09:14 Dose: 500 mg Documented by: Bisacodyl (Dulcolax) 10 mg [place] Q2-3DAYS PRN PRN Reason: Constipation Calcitriol (Rocaltrol) 0.25 mcg PO DAILY [facility] Last Admin: 11/20/19 09:24 Dose: 0.25 mcg Documented by: Cinacalcet (Sensipar) 30 mg PO QPM [facility] Last Admin: 11/20/19 20:44 Dose: 30 mg Documented by: Cinacalcet (Sensipar) 60 mg PO QDAY [facility] Last Admin: 11/20/19 09:24 Dose: 60 mg Documented by: Docusate Sodium (Colace) 100 mg PO BID [facility] Last Admin: 11/21/19 08:52 Dose: Not Given Documented by: Ferrous Sulfate (Ferrous Sulfate) 650 mg PO QDAY [facility] Last Admin: 11/20/19 09:25 Dose: 650 mg Documented by: Furosemide (Lasix) 120 mg PO BID [facility] Last Admin: 11/20/19 20:44 Dose: 120 mg Documented by: Heparin Sodium (Porcine) (Heparin) 5,000 unit SQ Q12 [facility] Last Admin: 11/20/19 20:45 Dose: 5,000 unit Documented by: Piperacillin Sod/Tazobactam (Sod 2.25 gm/ Dextrose) 50 mls @ 100 mls/hr IV Q8H [facility]; Protocol Last Infusion: 11/21/19 06:30 Dose: Infused Documented by: Iron Carb/Multivit/[place]/Folic Acid (Multivitamin W/Minerals) 1 tab PO DAILY [facility] Last Admin: 11/20/19 09:15 Dose: 1 tab Documented by: Loperamide HCl (Imodium) 2 mg PO DAILYP PRN PRN Reason: Diarrhea Last Admin: 11/20/19 09:15 Dose: 2 mg Documented by: Lorazepam (Ativan) 1 mg PO TIDP PRN PRN Reason: Muscle Spasm Last Admin: 11/19/19 22:12 Dose: 1 mg Documented by: Melatonin (Melatonin 3mg Tablet) 3 mg PO HSP PRN PRN Reason: Insomnia Multivit/Ca Carb/B Cmplx/FA/Prenat (Diatx) 1 tab PO DAILY [facility] Last Admin: 11/20/19 09:24 Dose: 1 tab Documented by: Nystatin (Nystatin) 400,000 units SSW QID [facility] Last Admin: 11/20/19 20:43 Dose: 400,000 units Documented by: Ondansetron HCl (Zofran Odt) 4 mg SL Q4-6HP PRN; Protocol PRN Reason: Nausea And Vomiting Ondansetron HCl (Zofran) 4 mg IV Q4-6HP PRN; Protocol PRN Reason: Nausea And Vomiting Pantoprazole Sodium (Protonix) 40 mg PO QAMAC [facility] Last Admin: 11/21/19 06:48 Dose: 40 mg Documented by: Polyethylene Glycol (Miralax) 17 gm PO DAILYP PRN PRN Reason: Constipation Potassium Chloride (Klor-Con) 40 meq PO QAC [facility] Last Admin: 11/20/19 09:16 Dose: 40 meq Documented by: Pramipexole Dihydrochloride (Mirapex) 0.25 mg PO [facility] Last Admin: 11/20/19 20:44 Dose: 0.25 mg Documented by: Fluticasone/Salmeterol (Advair 250-50 Diskus) 1 puff INH Q12 [facility] Last Admin: 11/21/19 08:52 Dose: Not Given Documented by: Senna/Docusate Sodium (Senna Plus Tablet) 1 tab PO [facility] Last Admin: 11/20/19 20:45 Dose: Not Given Documented by: Sevelamer Carbonate (Renvela) 1,600 mg PO TIDCC [facility] Last Admin: 11/20/19 17:37 Dose: 1,600 mg Documented by: Sodium Chloride (Saline Flush) 10 ml IV Q8 [facility] Last Admin: 11/21/19 06:00 Dose: 10 ml Documented by: Trazodone HCl (Desyrel) 25 mg PO HS [facility] Last Admin: 11/20/19 20:45 Dose: 25 mg Documented by: Vancomycin HCl (Vancomycin Per Pharmacy) 1 order IV UD [facility]; Protocol Vitamin D (Vitamin D3) 2,000 unit PO QDAY [facility] Last Admin: 11/20/19 09:25 Dose: 2,000 unit Documented by: Medical - PN: A/P - Time Spent With Patient Total time spent is greater than 50% in coordination of care (as documented) at patient's floor/unit and/or counseling patient: 25 - 35 minutes (1) Pneumonia Status: Acute Assessment and plan: * Community-acquired pneumonia. Clinically resolved on antibiotics. * Sepsis secondary above, white count down to 8.6. Clinical resolution noted * Complicated UTI-clinically resolved * Hypokalemia improving now at 3.4 * Low magnesium improving with replacement * ESRD on peritoneal dialysis -management per nephrology * Hyperlipidemia -Continue statin * Full code * Prophylaxis Heparin Plan * Continue electrolyte replacement * Maintain droplet precaution * ESRD management per nephrology * PT OT nutrition support * Discharge planning Current Visit: Yes Medical - PN: Qual - VTE Deep Vein Thrombosis/Pulmonary Embolism Present on Admission: Yes
[2019-11-21] MEDS: NYSTATIN 500,000 UNITS/5 ML ORAL.SUSP SSW SCH ×5 (09:56→22:11)
[2019-11-21] MEDS: SEVELAMER 800 MG TABLET PO SCH ×3 (09:56→16:55)
[2019-11-21] MEDS: MULTIVIT,THER IRON,CA,FA & MIN 1 TABLET PO SCH (09:56)
[2019-11-21] MEDS: HEPARIN 5,000 UNIT/ML VIAL SQ SCH ×2 (09:56→22:16)
[2019-11-21] MEDS: POTASSIUM CHLORIDE 20 MEQ PACKET PO SCH (09:56)
[2019-11-21] MEDS: ACETAMINOPHEN 325 MG TABLET PO PRN (09:57)
[2019-11-21] MEDS: ASCORBIC ACID 500 MG TABLET PO SCH (09:57)
[2019-11-21] MEDS: AZITHROMYCIN 250 MG TABLET PO SCH (09:57)
[2019-11-21] MEDS: LOPERAMIDE 2 MG CAPSULE PO PRN (09:57)
[2019-11-21] MEDS: CINACALCET 30 MG TABLET PO SCH ×2 (10:24→22:15)
[2019-11-21] MEDS: FERROUS SULFATE 325 MG TABLET PO SCH (10:24)
[2019-11-21] MEDS: CALCITRIOL 0.25 MCG CAPSULE PO SCH (10:24)
[2019-11-21] MEDS: VITAMIN D3 1,000 UNIT TABLET PO SCH (10:25)
[2019-11-21] MEDS: FOLIC ACID/VITAMIN B COMP W-C 1 TAB TABLET PO SCH (10:25)
[2019-11-21] MEDS: FUROSEMIDE 80 MG TABLET PO SCH ×2 (10:25→22:12)
[2019-11-21] MEDS ORDERED: VANCOMYCIN PER PHARMACY IV SCH (12:54)
[2019-11-21] MEDS ORDERED: LORazepam 1 MG TABLET PO PRN (12:54)
[2019-11-21] MEDS ORDERED: BISACODYL 10 MG SUPP.RECT PR PRN (12:54)
[2019-11-21] MEDS ORDERED: LOPERAMIDE 2 MG CAPSULE PO PRN (12:54)
[2019-11-21] MEDS ORDERED: MELATONIN 3 MG TABLET PO PRN (12:54)
[2019-11-21] MEDS ORDERED: ACETAMINOPHEN 325 MG TABLET PO PRN (12:54)
[2019-11-21] MEDS ORDERED: ONDANSETRON 4 MG ODT TABLET SL PRN (12:54)
[2019-11-21] MEDS ORDERED: POLYETHYLENE GLYCOL 3350 17 GM PACKET PO PRN (12:54)
--- NOTE | 2019-11-21 12:57 | Nephrology Progress Note ---
Subjective Patient information: Note initiated : 11/21/19 at 12:56 pm Service Date, if different from initiated Date: [] Patient: Ema Vang 79 y/o F admitted on 11/19/19 for sepsis, SOB. Chief Complaint: [] Principal diagnosis: ESRD Interval history: says she slept good and feels rested. feels cold. denies abdominal pain, SOB, edema; c/o diarrhea Objective - Vital Signs Vital signs: Vital Signs Temp Pulse Resp BP Pulse Ox 11/21/19 12:01 36.8 C 17 119/56 100 11/21/19 11:02 22 113/64 100 11/21/19 10:02 21 116/58 96 11/21/19 09:02 23 H 110/88 94 11/21/19 08:57 37.0 C 121/59 11/21/19 08:41 37.0 C 11/21/19 08:01 16 121/59 95 11/21/19 07:33 93 H 23 H 96 11/21/19 07:01 23 H 96/47 96 11/21/19 06:01 23 H 93/44 96 11/21/19 05:00 37.0 C 21 123/53 95 11/21/19 04:01 18 107/49 95 11/21/19 03:02 19 126/54 96 11/21/19 02:01 18 103/55 94 11/21/19 02:00 91 H 21 95 11/21/19 01:00 19 116/58 97 11/21/19 00:00 36.8 C 19 105/54 95 11/20/19 23:19 17 108/61 95 11/20/19 22:05 21 102/50 98 11/20/19 21:01 17 121/63 100 11/20/19 20:01 36.5 C 20 102/63 100 11/20/19 20:00 91 H 24 H 100 11/20/19 19:53 37.1 C 96/45 11/20/19 19:01 19 96/45 100 11/20/19 18:01 23 H 119/59 100 11/20/19 18:00 13 100 11/20/19 17:02 24 H 100 11/20/19 17:01 36.7 C 18 94/49 100 11/20/19 16:07 10 L 97 11/20/19 16:01 15 121/64 100 11/20/19 15:01 17 109/57 100 11/20/19 14:01 17 99/54 97 11/20/19 13:48 20 93/78 100 11/20/19 13:43 98 H 20 99 Intake and Output 11/20/19 11/21/19 11/21/19 21:59 05:59 13:59 Intake Total 460 970 Output Total 300 50 Balance 160 -50 970 Intake: Nourishment/Supplement quantity 360 (ml) IV 100 50 Zosyn 2.25 gm In Dextrose 5% in 100 50 Water 50 ml @ 100 mls/hr IV Q8H [facility] Rx#:[id number] Oral 920 Output: Void Amount 100 50 Urine/Stool Mix 200 Other: Meal Dinner Breakfast Percent of Meal Consumed 50% 100% Feeding Ability Independent Nourishment/Supplement name Nepro Urine Appearance Clear Clear Urine Color Bright Yellow Bright Yellow Urine Odor Normal Stool Size Moderate Smear Small Stool Color Brown Brown Brown Black Green Stool Consistency Soft Loose Loose # Bowel Movements 1 Weight 69.218 kg Intake & Output: Intake & Output 11/20/19 11/21/19 11/21/19 21:59 05:59 13:59 Intake Total 460 970 Output Total 300 50 Balance 160 -50 970 Weight 69.218 kg Intake: Nourishment/Supplement quantity 360 (ml) IV 100 50 Zosyn 2.25 gm In Dextrose 5% in 100 50 Water 50 ml @ 100 mls/hr IV Q8H [facility] Rx#:[id number] Oral 920 Output: Void Amount 100 50 Urine/Stool Mix 200 Other: Meal Dinner Breakfast Percent of Meal Consumed 50% 100% Feeding Ability Independent Nourishment/Supplement name Nepro Urine Appearance Clear Clear Urine Color Bright Yellow Bright Yellow Urine Odor Normal Stool Size Moderate Smear Small Stool Color Brown Brown Brown Black Green Stool Consistency Soft Loose Loose # Bowel Movements 1 - General Appearance General appearance: well-nourished, appears started age Neck: no JVD Cardiology: no rub, no gallops Gastrointestinal: no tenderness Integumentary: warm and dry Psychiatric: mood/affect appropriate - Lab 11/22/19 05:00 11/22/19 05:00 Most recent lab results Calcium 8.7 mg/dl (8.6-10.4) 11/21/19 04:21 Phosphorus 5.0 mg/dL (2.7-4.5) H 11/21/19 04:21 Magnesium 1.7 mg/dL (1.6-2.5) 11/21/19 04:21 Assessment and Plan (1) ESRD (end stage renal disease) Status: Chronic Priority: Medium (2) Iron deficiency anemia Status: Acute Priority: Medium (3) Hypokalemia Status: Acute Priority: Medium (4) Pneumonia Status: Acute Priority: High - Narrative A/P Narrative: ESRD on PD. continue PD per home prescription with the exception of K addition. We will use 1.5% dextrose solution, total 8.42 L, 5 cycles, over 9 hours. We will add 3 mEq potassium per liter. peritonitis 11/19/2019 PD fluid ~1500 nucleated cells out of which 87 neutrophils. Gram stain showed no organisms, no budding yeast or fungal elements. pending culture. The patient is currently covered with vancomycin IV, Zosyn, azithromycin for pneumonia. Random vancomycin level was 9.2 11/20/2019. * hold further vancomycin infusion. Usually PD patients require dosing every 4-5 days to maintain level between 15-20 continue nystatin for prevention of fungal peritonitis * check peritoneal fluid cell count with diff 11/22/2019 (order placed, discussed with PD RN) * from my standpoint with the PD cultures remain negative at 3 days, can narrow antibiotic spectrum. This will be coordinated with hospitalist given she has pneumonia too. Left lower lobe consolidation Most consistent with pneumonia. I personally reviewed the CT scan that was done at outside facility acid base Bicarbonate 23. Balance maintained with dialysis. bone mineral Calcium within lab reference range. Mild hyperphosphatemia to 5.2. Magnesium corrected to 1.6. Alkaline phosphatase within lab reference range. hemodynamics- volume Clinically euvolemic. Blood pressure acceptable with values between 107/55- 141/69. Serum albumin 2.7, agree the patient most likely has peritoneal loss of protein. Furthermore she has an infection. As an outpatient she receives intraperitoneal protein and this will be continued. Hold amlodipine. As needed clonidine 0.1 mg for systolic blood pressure over 150. BUN/K 41/3. Potassium improved with supplementation Continue electrolyte protocol. I will add 3 mEq of potassium per liter of dialysate for a total 24 mEq. This was discussed with the pharmacist. hematologic Leukocytosis improving, 11.1 Hemoglobin 9.5 She has iron deficiency anemia, however she refused IV infusions in the past as she cannot tolerate them well. She continues on p.o. iron with ascorbic acid at home. He has absorption is poor. Furthermore she had restless leg syndrome, and I had explained to her that iron would probably help. check H and H in am. if still below 10, will give 25mcg aranesp
[2019-11-21] MEDS: traZODone HCL 50 MG TABLET PO SCH (22:12)
[2019-11-21] MEDS: PRAMIPEXOLE 0.25 MG TABLET PO SCH (22:14)
[2019-11-21] MEDS: ATORVASTATIN 20 MG TABLET PO SCH (22:14)
[2019-11-21] MEDS: SENNOSIDES/DOCUSATE SODIUM 1 TAB TABLET PO SCH (22:15)
[2019-11-22 05:48] LABS: Hematocrit 26.8 % (34.1-44.9); Hemoglobin 8.3 g/dL (11.2-15.7); Mean Cell Volume 88.7 fL (80.0-100.0); Mean Platelet Volume 9.4 fL (7.4-10.4); Platelet Count 385 K/mcL (140-440); RBC 3.02 M/mcL (3.59-5.38); Red Cell Distribution Width 14.9 % (11.5-14.5); WBC 9.7 K/mcL (4.50-11.00)
[2019-11-22] MEDS: 0.9 % SODIUM CHLORIDE 10 ML SYRINGE IV SCH ×3 (05:48→21:27)
[2019-11-22] MEDS: PIPERACILLIN SODIUM/TAZOBACTAM 2.25 GM in DEXTROSE 5% IN WATER 50 ML IV SCH (05:48)
[2019-11-22 06:26] LABS: ALT/SGPT 8 U/l (0-40); AST/SGOT 12 U/l (0-37); Albumin 2.4 gm/dL (3.2-5.2); Albumin/Globulin Ratio 0.8 (1.0-2.3); Alkaline Phosphatase 64 U/L (39-117); Bilirubin,Direct < 0.2 mg/dL (0.0-0.3); Bilirubin,Total < 0.2 mg/dL (0.0-1.0); Blood Urea Nitrogen 33 mg/dl (8-23); Calcium 8.7 mg/dl (8.6-10.4); Carbon Dioxide 28 mmol/L (22-30); Chloride 95 mmol/L (96-108); Globulin 2.9 gm/dL (2.2-3.7); Glomerular Filtration Rate 8; Glucose 165 mg/dL (70-105); Lactate Dehydrogenase 172 U/L (94-250); Phosphorous 4.3 mg/dL (2.7-4.5); Triglycerides 123 mg/dl (<150)
[2019-11-22 06:35] LABS: Band Neutrophils % 1 % (0-10); Eosinophils % (Manual) 5 % (0-7); Lymphocytes % 21 % (15-49); Metamyelocytes % 2 % (0-0); Monocytes % (Manual) 4 % (1-12); Ovalocytes 1+ (NONE SEEN); Platelet Estimate NORMAL (NORMAL); RBC Morphology ABNORM (NORMAL); Rouleaux PRESENT (NONE SEEN); Segmented Neutrophils % 67 % (38-78)
[2019-11-22] MEDS: PANTOPRAZOLE 40 MG TABLET PO SCH (07:34)
--- NOTE | 2019-11-22 07:40 | Internal Med Progress Note ---
Medical - PN: Subj Patient information: Note initiated : 11/22/19 at 7:38 am Service Date, if different from initiated Date: [] Patient: Ema Vang a 79 y/o F admitted on 11/19/19 for sepsis, SOB. Chief Complaint: [] Interval history: Ms. Vang is a 79 year old F with a history of HTN, DM, ESRD on PD managed by hull builder Dr. Wilson. patient was in her baseline state of health undergoing home peritoneal dialysis. She now presents with lower abdominal discomfort that has progressed over the last few days. Patient has associated shortness of breath. She was evaluated at [facility]. Initial work-up was consistent with sepsis with pneumonia/pyuria and a white count of 16,000. CT chest abdomen pelvis revealed chest infiltrate consistent with pneumonia. Patient was started on antibiotics. Subsequently hospitalist service was consulted in light of need for nephrology consultation. Patient was received at [facility] in stable state. Hemodynamics and vitals stable. Sat 96% on room air. COVID 19 test pending. She denies recent sick contacts or travel. She denies dry or productive cough. She denies headache, myalgias, photophobia, rash or joint pain. Patient was started on vancomycin/Rocephin at [facility]. 11/19-coronavirus testing pending. Ongoing peritoneal dialysis per nephrology. On antibiotic coverage for pneumonia. Improving electrolytes with replacement as per nephrology. No overnight fever chills. White count down to 11.1. Corrected QT 495. Hold hydroxychloroquine for now in the absence of symptoms. 11/20-patient doing well. No overnight events. On room air. Improving white count 8.6. Potassium 3.4. Peritoneal fluid aspirate cultures negative. Coronavirus testing pending 11/21 continue treatment for acute peritonitis with over 1500 cells on peritoneal fluid. Change antibiotic use Rocephin/vancomycin/nystatin. Ongoing PD per nephrology. White count 9.7. Potassium 3.2 on replacement per nephrology. Await repeat PD fluid cell count - Constitutional Vitals: Vital Signs Temp Pulse Resp BP Pulse Ox 98.7 F 93 H 20 114/56 93 11/22/19 07:14 11/22/19 04:00 11/22/19 07:14 11/22/19 07:14 11/22/19 07:14 Period Temp Pulse Resp BP Sys/Hartman Pulse Ox Last 24 Hr 98.1 F-99.2 F 93-96 16-23 106-135/53-88 93-100 Intake and Output 11/21/19 11/22/19 11/22/19 21:59 05:59 13:59 Intake Total 410 250 50 Balance 410 250 50 Weight 155 lb 8 oz Intake & Output: Intake & Output 11/21/19 11/22/19 11/22/19 21:59 05:59 13:59 Intake Total 410 250 50 Balance 410 250 50 Weight 155 lb 8 oz Intake: IV 50 50 50 Zosyn 2.25 gm In Dextrose 5% in 50 50 50 Water 50 ml @ 100 mls/hr IV Q8H [facility] Rx#:[id number] Oral 360 200 Other: Urine Color Bright Yellow Urine Odor Normal Stool Size Large Stool Color Black Stool Consistency Liquid # Voids 3 General appearance: no acute distress Exam: Alert oriented nonlabored breathing No anxiety No lymphedema Nontender abdomen Medical - PN: Obj Da - Labs CBC & Chem 7: 11/22/19 05:00 11/22/19 05:00 Labs: Abnormal Lab Results 11/22/19 11/22/19 11/21/19 05:00 05:00 04:21 WBC RBC 3.02 L Hgb 8.3 L Hct 26.8 L MCHC RDW 14.9 H Metamyelocytes % 2 H Myelocytes % RBC Morphology Abnorm A Anisocytosis Ovalocytes 1+ A Rouleaux Present A Potassium 3.2 L Chloride 95 L 95 L Anion Gap BUN 33 H 38 H Creatinine 5.1 H* 5.1 H* Glucose 165 H 167 H Phosphorus 5.0 H Magnesium 1.5 L C-Reactive Protein Total Protein 5.3 L 5.5 L Albumin 2.4 L 2.5 L Albumin/Globulin Ratio 0.8 L 0.8 L 11/21/19 11/20/19 11/20/19 04:21 04:51 04:51 WBC 11.1 H RBC 3.12 L 3.55 L Hgb 8.4 L 9.5 L Hct 27.7 L 31.1 L MCHC 30.3 L 30.5 L RDW 14.8 H 14.7 H Metamyelocytes % Myelocytes % 1 H RBC Morphology Abnorm A Anisocytosis Few A 1+ A Ovalocytes Rouleaux Potassium 3.0 L Chloride 94 L Anion Gap 18.0 H BUN 41 H Creatinine 5.5 H* Glucose 160 H Phosphorus 5.2 H Magnesium C-Reactive Protein 14.9 H Total Protein Albumin 2.7 L Albumin/Globulin Ratio 0.8 L Meds: Medications Acetaminophen (Tylenol) 650 mg PO Q4-6HP PRN; Protocol PRN Reason: Per Pain Protocol/Fever > 101 Ascorbic Acid (Vitamin C) 500 mg PO DAILY [facility] Atorvastatin Calcium (Lipitor) 20 mg PO QHS [facility] Last Admin: 11/21/19 22:14 Dose: 20 mg Documented by: Azithromycin (Zithromax) 500 mg PO DAILY [facility]; Protocol Stop: 11/22/19 09:01 Bisacodyl (Dulcolax) 10 mg ME Q2-3DAYS PRN PRN Reason: Constipation Calcitriol (Rocaltrol) 0.25 mcg PO DAILY [facility] Cinacalcet (Sensipar) 30 mg PO QPM [facility] Last Admin: 11/21/19 22:15 Dose: 30 mg Documented by: Cinacalcet (Sensipar) 60 mg PO QDAY [facility] Docusate Sodium (Colace) 100 mg PO BID [facility] Last Admin: 11/21/19 22:15 Dose: Not Given Documented by: Ferrous Sulfate (Ferrous Sulfate) 650 mg PO QDAY [facility] Furosemide (Lasix) 120 mg PO BID [facility] Last Admin: 11/21/19 22:12 Dose: 120 mg Documented by: Heparin Sodium (Porcine) (Heparin) 5,000 unit SQ Q12 [facility] Last Admin: 11/21/19 22:16 Dose: 5,000 unit Documented by: Piperacillin Sod/Tazobactam (Sod 2.25 gm/ Dextrose) 50 mls @ 100 mls/hr IV Q8H [facility]; Protocol Last Infusion: 11/22/19 06:47 Dose: Infused Documented by: Iron Carb/Multivit/[employer]ice [employer] Lending/Folic Acid (Multivitamin W/Minerals) 1 tab PO DAILY [facility] Loperamide HCl (Imodium) 2 mg PO DAILYP PRN PRN Reason: Diarrhea Lorazepam (Ativan) 1 mg PO TIDP PRN PRN Reason: Muscle Spasm Melatonin (Melatonin 3mg Tablet) 3 mg PO HSP PRN PRN Reason: Insomnia Multivit/Ca Carb/B Cmplx/FA/Prenat (Diatx) 1 tab PO DAILY [facility] Nystatin (Nystatin) 400,000 units SSW QID [facility] Last Admin: 11/21/19 22:11 Dose: 400,000 units Documented by: Ondansetron HCl (Zofran Odt) 4 mg SL Q4-6HP PRN; Protocol PRN Reason: Nausea And Vomiting Ondansetron HCl (Zofran) 4 mg IV Q4-6HP PRN; Protocol PRN Reason: Nausea And Vomiting [facility] Admin: 11/22/19 07:34 Dose: 40 mg Documented by: Polyethylene Glycol (Miralax) 17 gm PO DAILYP PRN PRN Reason: Constipation Potassium Chloride (Klor-Con) 40 meq PO [facility] Pramipexole Dihydrochloride (Mirapex) 0.25 mg PO [facility] Last Admin: 11/21/19 22:14 Dose: 0.25 mg Documented by: Fluticasone/Salmeterol (Advair 250-50 Diskus) 1 puff INH Q12 [facility] Last Admin: 11/21/19 22:15 Dose: Not Given Documented by: Senna/Docusate Sodium (Senna Plus Tablet) 1 tab PO [facility] Last Admin: 11/21/19 22:15 Dose: Not Given Documented by: Sevelamer Carbonate (Renvela) 1,600 mg PO TIDCC [facility] Last Admin: 11/21/19 16:55 Dose: 1,600 mg Documented by: Sodium Chloride (Saline Flush) 10 ml IV Q8 [facility] Last Admin: 11/22/19 05:48 Dose: 10 ml Documented by: Trazodone HCl (Desyrel) 25 mg PO [facility] Last Admin: 11/21/19 22:12 Dose: 25 mg Documented by: Vancomycin HCl (Vancomycin Per Pharmacy) 1 order IV UD [facility]; Protocol Vitamin D (Vitamin D3) 2,000 unit PO QDAY [facility] Medical - PN: A/P - Time Spent With Patient Total time spent is greater than 50% in coordination of care (as documented) at patient's floor/unit and/or counseling patient: 25 - 35 minutes (1) Pneumonia Status: Acute Assessment and plan: * Acute peritonitis with >1500 WBCs. On vancomycin/Rocephin/nystatin. Nephrology on board. Await repeat peritoneal fluid cell count. * Community-acquired pneumonia. Clinically resolved * Sepsis secondary above, clinically resolved * Complicated UTI-clinically resolved * Hypokalemia ongoing replacement nephrology * Low magnesium resolved * ESRD on peritoneal dialysis -management per nephrology * Hyperlipidemia -Continue statin * Full code * Prophylaxis Heparin Plan * De-escalate antibiotics to vancomycin Rocephin * Continue electrolyte replacement * Repeat peritoneal fluid cell count * Maintain droplet precaution * ESRD management per nephrology * PT OT nutrition support * Discharge planning likely SNF on Monday Current Visit: Yes Medical - PN: Qual - VTE Deep Vein Thrombosis/Pulmonary Embolism Present on Admission: Yes
[2019-11-22 07:57] LABS: Vancomycin,Random 16.9 ug/mL
[2019-11-22] MEDS: POTASSIUM CHLORIDE 20 MEQ PACKET PO SCH (08:00)
[2019-11-22] MEDS ORDERED: AZITHROMYCIN 250 MG TABLET PO SCH (09:00)
[2019-11-22] MEDS ORDERED: cefTRIAXone 2 GM in DEXTROSE 5% IN WATER 50 ML IV SCH (09:00)
[2019-11-22] MEDS: ONDANSETRON 4 MG/2 ML VIAL IV PRN ×2 (09:02→17:30)
[2019-11-22] MEDS: SEVELAMER 800 MG TABLET PO SCH ×3 (10:05→17:32)
[2019-11-22] MEDS: DOCUSATE SODIUM 100 MG CAPSULE PO SCH ×2 (10:05→21:27)
[2019-11-22] MEDS: MULTIVIT,THER IRON,CA,FA & MIN 1 TABLET PO SCH (10:06)
[2019-11-22] MEDS ORDERED: cefTRIAXone 2 GM VIAL ONE (10:12)
[2019-11-22] MEDS: FLUTICASONE/SALMETEROL 250/50 INHALER #14 INH SCH ×2 (10:39→21:27)
[2019-11-22] MEDS: CALCITRIOL 0.25 MCG CAPSULE PO SCH (10:40)
[2019-11-22] MEDS: HEPARIN 5,000 UNIT/ML VIAL SQ SCH ×2 (10:40→21:25)
[2019-11-22] MEDS: FOLIC ACID/VITAMIN B COMP W-C 1 TAB TABLET PO SCH (10:40)
[2019-11-22] MEDS: FERROUS SULFATE 325 MG TABLET PO SCH (10:43)
[2019-11-22] MEDS: FUROSEMIDE 80 MG TABLET PO SCH ×2 (10:44→21:26)
[2019-11-22] MEDS: NYSTATIN 500,000 UNITS/5 ML ORAL.SUSP SSW SCH ×4 (10:44→21:25)
[2019-11-22] MEDS: ASCORBIC ACID 500 MG TABLET PO SCH (10:55)
[2019-11-22] MEDS: CINACALCET 30 MG TABLET PO SCH ×2 (10:55→21:26)
[2019-11-22] MEDS: VITAMIN D3 1,000 UNIT TABLET PO SCH (11:01)
[2019-11-22 16:10] LABS: Nucleated Cel,Peritoneal Fluid 209 /cumm; RBC,Peritoneal Fluid < 50000 /cumm
[2019-11-22] MEDS ORDERED: FLUCONAZOLE 150 MG TABLET PO ONE (17:00)
[2019-11-22 18:22] LABS: Eosinophils,Peritoneal Fluid 1 %; Macrophages,Peritoneal Fluid 21 %; Mesothelial,Peritoneal Fluid 1 %; Monocyte,Peritoneal Fluid 13 %; Neutrophils,Peritoneal Fluid 6 %
[2019-11-22] MEDS ORDERED: DARBEPOETIN ALFA 25 MCG/ML VIAL SQ ONE (20:17)
--- NOTE | 2019-11-22 20:35 | Nephrology Progress Note ---
Subjective Patient information: Note initiated : 11/22/19 at 8:06 pm Service Date, if different from initiated Date: [] Patient: Ema Vang 79 y/o F admitted on 11/19/19 for sepsis, SOB. Chief Complaint: [] Principal diagnosis: ESRD Interval history: says she can sleep well. continues to have diarrhea. had nausea and vomiting. says she feels unwell. denies cough Pertinent ROS: as above Objective - Vital Signs Vital signs: Vital Signs Temp Pulse Resp BP BP Pulse Ox 11/22/19 19:30 37.3 C H 125/67 11/22/19 15:40 37.3 C H 20 125/67 93 11/22/19 12:00 36.9 C 16 113/67 95 11/22/19 08:40 37.1 C 114/56 11/22/19 07:14 37.1 C 20 114/56 93 11/22/19 04:00 36.8 C 93 H 16 106/58 93 11/22/19 00:00 37.3 C H 16 109/54 11/21/19 21:47 36.9 C 18 94 Intake and Output 11/22/19 11/22/19 11/22/19 05:59 13:59 21:59 Intake Total 250 530 710 Output Total 180 60 Balance 250 350 650 Intake: Nourishment/Supplement quantity 240 (ml) IV 50 50 Zosyn 2.25 gm In Dextrose 5% in 50 50 Water 50 ml @ 100 mls/hr IV Q8H [facility] Rx#:[id number] Oral 200 480 470 Output: Emesis 180 60 Other: Meal Breakfast Dinner Percent of Meal Consumed 25% 25% Feeding Ability Independent Independent Nourishment/Supplement name Nepru Urine Color Bright Yellow Urine Odor Normal Stool Consistency Liquid # Voids 3 4 # Bowel Movements 2 # Emeses 1 Intake & Output: Intake & Output 11/22/19 11/22/19 11/22/19 05:59 13:59 21:59 Intake Total 250 530 710 Output Total 180 60 Balance 250 350 650 Intake: Nourishment/Supplement quantity 240 (ml) IV 50 50 Zosyn 2.25 gm In Dextrose 5% in 50 50 Water 50 ml @ 100 mls/hr IV Q8H [facility] Rx#:[id number] Oral 200 480 470 Output: Emesis 180 60 Other: Meal Breakfast Dinner Percent of Meal Consumed 25% 25% Feeding Ability Independent Independent Nourishment/Supplement name Irma Urine Color Bright Yellow Urine Odor Normal Stool Consistency Liquid # Voids 3 4 # Bowel Movements 2 # Emeses 1 - General Appearance General appearance: well-nourished, appears started age Neck: no JVD Cardiology: no rub, no gallops, no edema, regular rate, regular rhythm Gastrointestinal: no tenderness - Lab 11/23/19 05:08 11/23/19 05:08 Most recent lab results Calcium 8.7 mg/dl (8.6-10.4) 11/22/19 05:00 Phosphorus 4.3 mg/dL (2.7-4.5) 11/22/19 05:00 Magnesium 1.5 mg/dL (1.6-2.5) L 11/22/19 05:00 Assessment and Plan (1) ESRD (end stage renal disease) Status: Chronic Priority: Medium (2) Iron deficiency anemia Status: Acute Priority: Medium (3) Hypokalemia Status: Acute Priority: Medium (4) Pneumonia Status: Acute Priority: High - Narrative A/P Narrative: ESRD on PD. continue PD per home prescription. We will use 1.5% dextrose solution, total 8.42 L, 5 cycles, over 9 hours. peritonitis, so far cultures are negative 11/19/2019 PD fluid ~1500 nucleated cells out of which 87 neutrophils. Gram stain showed no organisms, no budding yeast or fungal elements. pending culture. She is status post broad-spectrum antibiotics. Stop ceftriaxone and vancomycin *I initially considered moxifloxacin but the drug was unavailable. Start levofloxacin 7501 dose on 11/23/2019, followed by 500 mg p.o. every other day for total antibiotic course 14 days (through December 02, 2019) unless cultures become positive *Continue nystatin throughout antibiotic treatment for prevention of fungal peritonitis * check peritoneal fluid cell count with diff, culture 11/22/2019 Left lower lobe consolidation Most consistent with pneumonia; patient denies cough. I personally reviewed the CT scan that was done at outside facility Diarrhea, chronic with episodes of exacerbation She had extensive work-up 12/18/2018 including negative norovirus, negative culture including enterohemorrhagic E. coli, Salmonella, Shigella, Campylobacter, Yersinia, vibrio. 12/17/2018 C. difficile toxin and antigen negative. C diff positice 12/04/2018. Normal fat. Reducing stool negative Still electrolytes sodium 137, potassium 35, chloride 24 She had significant growth of Aeromonas. Calprotectin was elevated 856 mcg/g. EGD 12/2018+ esophagitis, duodenitis, gastritis. Colonoscopy diverticulosis, hemorrhoids, acid base Bicarbonate 28. Balance maintained with dialysis. bone mineral Calcium within lab reference range. Mild hyperphosphatemia to 5.2. decrease sevelamer to 800mg po tid hemodynamics- volume Clinically euvolemic. Blood pressure acceptable. Serum albumin 2.4, agree the patient most likely has peritoneal loss of protein. Furthermore she has an infection. As an outpatient she receives intrape ritoneal protein. Hold amlodipine. As needed clonidine 0.1 mg for systolic blood pressure over 15 0. BUN/K 33/3.2 G I losses/peritoneal losses * 40 mEq of potassium daily hematologic Leukocytosis resolved Hemoglobin 8.3. There is no growth to of rouleaux formation. The patient had recent hypercalcemia. She has iron deficiency anemia, however she refused IV infusions in the past as she cannot tolerate them well. She continues on p.o. iron with ascorbic acid at home. He has absorption is poor. Furthermore she had restless leg syndrome, and I had explained to her that iron would probably help. *Check UPEP with immunofixation, free kappa lambda chains, SPEP with TREVOR *Give 1 dose of darbepoetin 25 mcg today
[2019-11-22] MEDS: traZODone HCL 50 MG TABLET PO SCH (21:26)
[2019-11-22] MEDS: PRAMIPEXOLE 0.25 MG TABLET PO SCH (21:26)
[2019-11-22] MEDS: ATORVASTATIN 20 MG TABLET PO SCH (21:26)
[2019-11-22] MEDS: SENNOSIDES/DOCUSATE SODIUM 1 TAB TABLET PO SCH (21:27)
[2019-11-23 06:47] LABS: Hematocrit 26.9 % (34.1-44.9); Hemoglobin 8.2 g/dL (11.2-15.7); Mean Cell Volume 89.1 fL (80.0-100.0); Mean Corpuscular HGB Conc 30.5 g/dL (31.0-36.0); Mean Platelet Volume 9.6 fL (7.4-10.4); Platelet Count 394 K/mcL (140-440); RBC 3.02 M/mcL (3.59-5.38)
[2019-11-23] MEDS: 0.9 % SODIUM CHLORIDE 10 ML SYRINGE IV SCH (06:49)
[2019-11-23 07:23] LABS: ALT/SGPT 9 U/l (0-40); AST/SGOT 14 U/l (0-37); Albumin 2.2 gm/dL (3.2-5.2); Albumin/Globulin Ratio 0.7 (1.0-2.3); Alkaline Phosphatase 72 U/L (39-117); Bilirubin,Direct < 0.2 mg/dL (0.0-0.3); Bilirubin,Total < 0.2 mg/dL (0.0-1.0); Blood Urea Nitrogen 31 mg/dl (8-23); Calcium 8.7 mg/dl (8.6-10.4); Carbon Dioxide 27 mmol/L (22-30); Globulin 3.2 gm/dL (2.2-3.7); Glucose 113 mg/dL (70-105); Lactate Dehydrogenase 190 U/L (94-250); Phosphorous 4.6 mg/dL (2.7-4.5); Triglycerides 118 mg/dl (<150); Uric Acid 5.1 mg/dL (2.5-8.0)
[2019-11-23 07:26] LABS: Chloride 95 mmol/L (96-108); Glomerular Filtration Rate 7
[2019-11-23] MEDS ORDERED: DARBEPOETIN ALFA 25 MCG/ML VIAL SQ ONE (08:00)
[2019-11-23 08:29] LABS: Anisocytosis 1+ (NONE SEEN); Band Neutrophils % 1 % (0-10); Eosinophils % (Manual) 3 % (0-7); Lymphocytes % 32 % (15-49); Monocytes % (Manual) 6 % (1-12); Platelet Estimate NORMAL (NORMAL); RBC Morphology ABNORM (NORMAL); Segmented Neutrophils % 58 % (38-78)
[2019-11-23] MEDS: POTASSIUM CHLORIDE 20 MEQ PACKET PO SCH (08:43)
[2019-11-23] MEDS: CALCITRIOL 0.25 MCG CAPSULE PO SCH (08:44)
[2019-11-23] MEDS: PANTOPRAZOLE 40 MG TABLET PO SCH (08:44)
[2019-11-23] MEDS: MULTIVIT,THER IRON,CA,FA & MIN 1 TABLET PO SCH (08:45)
[2019-11-23] MEDS: SEVELAMER 800 MG TABLET PO SCH ×2 (08:45→12:29)
[2019-11-23] MEDS: FERROUS SULFATE 325 MG TABLET PO SCH (08:45)
[2019-11-23] MEDS: VITAMIN D3 1,000 UNIT TABLET PO SCH (08:45)
[2019-11-23] MEDS: CINACALCET 30 MG TABLET PO SCH (08:45)
[2019-11-23] MEDS: FOLIC ACID/VITAMIN B COMP W-C 1 TAB TABLET PO SCH (08:45)
[2019-11-23] MEDS: ASCORBIC ACID 500 MG TABLET PO SCH (08:46)
[2019-11-23] MEDS: FUROSEMIDE 80 MG TABLET PO SCH (08:46)
[2019-11-23] MEDS: HEPARIN 5,000 UNIT/ML VIAL SQ SCH (08:51)
[2019-11-23] MEDS: DOCUSATE SODIUM 100 MG CAPSULE PO SCH (08:51)
[2019-11-23] MEDS: NYSTATIN 500,000 UNITS/5 ML ORAL.SUSP SSW SCH (08:57)
[2019-11-23] MEDS ORDERED: LEVOFLOXACIN 750 MG/150 ML BAG IV ONE (09:00)
--- NOTE | 2019-11-23 09:01 | Discharge Summary ---
Medical - DS: Prov Patient information: Note initiated : 11/23/19 at 8:58 am Service Date, if different from initiated Date: [] Patient: Ema Vang 79 y/o F admitted on 11/19/19 for sepsis, SOB. Chief Complaint: [] Date of admission: 11/19/19 01:33 Discharge date: 11/23/19 Primary care physician: Sky Ceja Consults: 11/19/19 03:08 Consult to Physician [CONS] Routine Comment: Consulting Provider: Kal Pinto Reason For Exam: Physician to Consult Medical - DS: Meds - Discharge Medications Prescriptions: Levofloxacin [Levaquin] 500 mg PO Q48 #6 tab Nystatin 400,000 units SSW QID 10 Days oral.susp Active and Home Medications: Home Medications Lidocaine 1 patch TOPICAL PRN PRN 07/30/18 [History Confirmed 11/19/19 Last Taken 11/07/18] Fluticasone/Salmeterol [Advair 250-50 Diskus] 1 puff INH Q12 12/04/18 [History Confirmed 11/19/19 Last Taken 12/03/18 21:00] Cinacalcet HCl [Sensipar] 60 mg PO QDAY 12/17/18 [History Confirmed 11/19/19 Last Taken Unknown] Cinacalcet [Sensipar] 30 mg PO QPM 12/17/18 [History Confirmed 11/19/19 Last Taken Unknown] Folic Acid/Vitamin B Comp W-C [Diatx] 1 tab PO DAILY 12/17/18 [History Confirmed 11/19/19 Last Taken Unknown] amlodipine 10 mg tablet 10 mg PO QDAY #90 tab 02/19/19 [Rx Confirmed 11/19/19 Last Taken Unknown] atorvastatin 20 mg tablet 20 mg PO QHS #90 tab 02/20/19 [Rx Confirmed 11/19/19 Last Taken Unknown] gentamicin 0.1 % topical cream 1 applic TOPICAL QDAY #30 g 06/04/19 [Rx Confirmed 11/19/19 Last Taken Unknown] cholecalciferol (vitamin D3) 50 mcg (2,000 unit) capsule 2,000 unit PO QDAY #30 cap 07/02/19 [Rx Confirmed 11/19/19 Last Taken Unknown] LORazepam [Ativan] 1 mg PO TIDP PRN #14 tab 11/10/19 [Rx Confirmed 11/19/19 Last Taken Unknown] Ascorbate Calcium [Vitamin C] 500 mg PO DAILY 11/19/19 [History Confirmed 11/19/19 Last Taken Unknown] Calcitriol [Rocaltrol] 0.25 mcg PO DAILY 11/19/19 [History Confirmed 11/19/19 Last Taken Unknown] Ferrous Sulfate 650 mg PO QDAY 11/19/19 [History Confirmed 11/19/19 Last Taken Unknown] Furosemide [Lasix] 120 mg PO BID 11/19/19 [History Confirmed 11/19/19 Last Taken Unknown] Loperamide [Imodium] 2 mg PO DAILYP PRN 11/19/19 [History Confirmed 11/19/19 Last Taken Unknown] Ondansetron HCl [Zofran] 4 mg PO QAM PRN 11/19/19 [History Confirmed 11/19/19 Last Taken Unknown] Pantoprazole Sodium 20 mg PO QDAY 11/19/19 [History Confirmed 11/19/19 Last Taken Unknown] Potassium Chloride 40 meq PO DAILY 11/19/19 [History Confirmed 11/19/19 Last Taken Unknown] Sevelamer Carbonate 0.8 g PO TID 11/19/19 [History Confirmed 11/19/19 Last Taken Unknown] glipiZIDE [Glucotrol] 2.5 mg PO QAM PRN 11/19/19 [History Confirmed 11/19/19 Last Taken Unknown] glipiZIDE [Glucotrol] 5 mg PO QPM PRN 11/19/19 [History Confirmed 11/19/19 Last Taken Unknown] traZODone HCL [Desyrel] 25 mg PO HS 11/19/19 [History Confirmed 11/19/19 Last Taken Unknown] Levofloxacin [Levaquin] 500 mg PO Q48 #6 tab 11/23/19 [Rx Last Taken Unknown] Nystatin 400,000 units SSW QID 10 Days oral.susp 11/23/19 [Rx Last Taken Unknown] Medical - DS: Hosp Hospital Course: Discharge diagnosis * Acute peritonitis with >1500 WBCs. Repeat cell count 209. Clinically improving. Initially treated with vancomycin Rocephin. Per nephrology recommendations patient now discharging on 500 Levaquin every 48 hours to continue until December 01 along with nystatin. Patient will follow-up with nephrology as outpatient. * Community-acquired pneumonia. Clinically resolved on antibiotic coverage * Sepsis secondary to above, clinically resolved * Complicated UTI-clinically resolved * Hypokalemia -resolved with replacement * Low magnesium resolved * ESRD on peritoneal dialysis -management per nephrology * Hyperlipidemia -Continue statin Brief hospital course Ms. 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 patient was in her baseline state of health undergoing home peritoneal dialysis. She now presents with lower abdominal discomfort that has progressed over the last few days. Patient has associated shortness of breath. She was evaluated at [facility]. Initial work-up was consistent with sepsis with pneumonia/pyuria and a white count of 16,000. CT chest abdomen pelvis revealed chest infiltrate consistent with pneumonia. Patient was started on antibiotics. Subsequently hospitalist service was consulted in light of need for nephrology consultation. Patient was received at [facility] in stable state. Hemodynamics and vitals stable. Sat 96% on room air. COVID 19 test pending. She denies recent sick contacts or travel. She denies dry or productive cough. She denies headache, myalgias, photophobia, rash or joint pain. Patient was started on vancomycin/Rocephin at [facility]. 11/19-coronavirus testing pending. Ongoing peritoneal dialysis per nephrology. On antibiotic coverage for pneumonia. Improving electrolytes with replacement as per nephrology. No overnight fever chills. White count down to 11.1. Corrected QT 495. Hold hydroxychloroquine for now in the absence of symptoms. 11/20-patient doing well. No overnight events. On room air. Improving white count 8.6. Potassium 3.4. Peritoneal fluid aspirate cultures negative. Coronavirus testing pending 11/21 continue treatment for acute peritonitis with over 1500 cells on peritoneal fluid. Change antibiotic use Rocephin/vancomycin/nystatin. Ongoing PD per nephrology. White count 9.7. Potassium 3.2 on replacement per nephrology. Await repeat PD fluid cell count 11/22 patient discharging with advice to continue levofloxacin and nystatin as per nephrology recommendations. Will follow with nephrology as outpatient. Repeat peritoneal fluid cell count 209. Now feels at baseline. Diarrhea improved. No overnight fever chills. Stable hemodynamics and labs. Discharging instructions below Discharge diagnosis: . - Time Spent with Patient Total time spent providing and/or coordinating discharge services: Greater than 30 minutes Medical - DS: Exam - Constitutional Vitals: Vital Signs Temp Pulse Resp BP BP BP Pulse Ox 11/23/19 08:08 98.4 F 96/55 11/23/19 04:00 98.4 F 91 H 14 101/52 92 11/22/19 23:44 98.9 F 94 H 18 99/56 91 11/22/19 20:00 98.7 F 105 H 16 122/58 96 11/22/19 19:30 99.1 F H 125/67 11/22/19 15:40 99.1 F H 20 125/67 93 11/22/19 12:00 98.4 F 16 113/67 95 Intake and Output 11/22/19 11/23/19 11/23/19 21:59 05:59 13:59 Intake Total 810 150 Output Total 60 175 Balance 750 -25 Intake: Nourishment/Supplement quantity 240 (ml) Oral 570 150 Output: Void Amount 175 Emesis 60 Other: Meal Dinner Percent of Meal Consumed 25% Feeding Ability Independent Nourishment/Supplement name Nepru Urine Appearance Clear Urine Color Bright Yellow Urine Odor Normal Stool Size Moderate Moderate Stool Color Black Black Stool Consistency Soft Soft Loose Loose # Voids 4 # Bowel Movements 1 1 Weight 155 lb 3.2 oz Medical - DS: Data Labs on day of discharge: Labs from last 24 hours 11/23/19 11/23/19 11/22/19 05:08 05:08 09:15 WBC 10.0 RBC 3.02 L Hgb 8.2 L Hct 26.9 L MCV 89.1 MCH 27.2 MCHC 30.5 L RDW 15.0 H Plt Count 394 MPV 9.6 Total Counted 100 Seg Neutrophils % 58 Band Neutrophils % 1 Lymphocytes % 32 Monocytes % (Manual) 6 Eosinophils % (Manual) 3 Platelet Estimate Normal RBC Morphology Abnorm A Anisocytosis 1+ A Sodium 134 Potassium 3.4 Chloride 95 L Carbon Dioxide 27 Anion Gap 12.0 BUN 31 H Creatinine 5.7 H* GFR Calculation 7 Glucose 113 H Uric Acid 5.1 Calcium 8.7 Phosphorus 4.6 H Magnesium 1.7 Total Bilirubin < 0.2 Direct Bilirubin < 0.2 GGT 17 AST 14 ALT 9 Alkaline Phosphatase 72 Lactate Dehydrogenase 190 Total Protein 5.4 L Albumin 2.2 L Globulin 3.2 Albumin/Globulin Ratio 0.7 L Triglycerides 118 Fluid Source Fluid Color Fluid Appearance Fluid RBC Fluid Tot Cell Count Fluid Nucleated Cells Fluid Neutrophils Fluid Lymphocytes Fluid Monocytes Fluid Eosinophils Fluid Basophils Fluid Plasma Cells Fluid Macrophages Fld Mesothelial Cells Peritoneal Source Peritoneal Peritoneal Color P. yellow Peritoneal Appearance Clear Peritoneal RBC < [address] 100 Periton Nuc Cells 209 Periton Neutrophils 6 Periton Lymphocytes 58 Peritoneal Monocytes 13 Peritoneal Eosinophils 1 Peritoneal Basophils Not Reportable Periton Mesothelial 1 Periton Macrophages 21 Peritoneal Plasma Cell Not Reportable Peritoneal Other Cells Not Reportable Peritoneal Diff Commnt Not Reportable 11/22/19 09:15 WBC RBC Hgb Hct MCV MCH MCHC RDW Plt Count MPV Total Counted Seg Neutrophils % Band Neutrophils % Lymphocytes % Monocytes % (Manual) Eosinophils % (Manual) Platelet Estimate RBC Morphology Anisocytosis Sodium Potassium Chloride Carbon Dioxide Anion Gap BUN Creatinine GFR Calculation Glucose Uric Acid Calcium Phosphorus Magnesium Total Bilirubin Direct Bilirubin GGT AST ALT Alkaline Phosphatase Lactate Dehydrogenase Total Protein Albumin Globulin Albumin/Globulin Ratio Triglycerides Fluid Source TNP Fluid Color TNP Fluid Appearance TNP Fluid RBC TNP Fluid Tot Cell Count TNP Fluid Nucleated Cells TNP Fluid Neutrophils Not Reportable Fluid Lymphocytes Not Reportable Fluid Monocytes Not Reportable Fluid Eosinophils Not Reportable Fluid Basophils Not Reportable Fluid Plasma Cells Not Reportable Fluid Macrophages Not Reportable Fld Mesothelial Cells Not Reportable Peritoneal Source Peritoneal Color Peritoneal Appearance Peritoneal RBC Periton Tot Cells Ct Periton Nuc Cells Periton Neutrophils Periton Lymphocytes Peritoneal Monocytes Peritoneal Eosinophils Peritoneal Basophils Periton Mesothelial Periton Macrophages Peritoneal Plasma Cell Peritoneal Other Cells Peritoneal Diff Commnt Preliminary micro results at discharge 11/19/19 14:28 Body Fluid Culture - Preliminary Peritoneal Dialysis Fluid Medical - DS: A/P - Patient/Caregiver Discharge Instructions Activity: increase activity as tolerated Diet: Renal/Consistent Carbs Additional Instructions: Follow-up PCP in 5 days Follow-up nephrology as advised I recommend primary care physician to check CBC BMP UA as a posthospital follow- up in 1 week. Antibiotics through December 01 High protein calorie supplements All meals on chair sitting upright at 90 degrees to prevent aspiration Return to ER if worsening fever chills shortness of breath, diarrhea, bleeding Review risk and side effect profile of medications including antibiotics. Side effect may include mild to severe reaction including rash, diarrhea, cdiff and even which can be prevented by close follow-up with PCP and monitoring for side effects Continue diet and activity as advised Discussed importance of medication adherence Please review medication list with patient prior to discharge Please schedule follow-up with PCP/Providers prior to discharge and provide printouts Nephrology instructions as below -Start levofloxacin 7501 dose on 11/23/2019, followed by 500 mg p.o. every other day for total antibiotic course 14 days (through December 02, 2019) unless cultures become positive -Continue nystatin throughout antibiotic treatment for prevention of fungal peritonitis Prescriptions: Levofloxacin [Levaquin] 500 mg PO Q48 #6 tab Nystatin 400,000 units SSW QID 10 Days oral.susp - Problem Maintenance (1) Pneumonia Status: Acute - Follow up Plan Follow up with: Nancy Gonzales MD [Physician] - Sky Ceja MD [Primary Care Provider] - Disposition: Home, Self-Care Care Plan Goals: This discharge packet is provided to you to help keep you informed about your care. We want to ensure you get everything you need when you go home. You will also be receiving a call from us in a few days to follow up with you and see how you are doing since your discharge. This gives us a chance to listen to any concerns you maybe experiencing since you were discharged or any additional needs you may have, as well as providing us feedback on your care experience. We strive to always provide excellent care and thank you for your feedback and for choosing [facility]. Prognosis: Fair Rehab Potential: Fair I certify that the patient requires SNF services: No Overall status at discharge: patient is progressing back to baseline Medical - DS: Qual - VTE Deep Vein Thrombosis/Pulmonary Embolism Present on Admission: Yes
[2019-11-23] MEDS ORDERED: LEVOFLOXACIN 750 MG TABLET PO ONE (09:11)
[2019-11-23] MEDS: FLUTICASONE/SALMETEROL 250/50 INHALER #14 INH SCH (09:42)
[2019-11-25] MEDS ORDERED: LEVOFLOXACIN 500 MG/100 ML BAG IV SCH (09:00)
== END 2019-11-23 13:45 | disposition home or self-care (01) | DRG 371 ==
LOC: ICU 11-19 01:33 → MEDSUR 11-21 13:18
PROVIDERS: ADMIT Internal Medicine; ATTEND Internal Medicine

== ENCOUNTER 2019-12-06 14:12 | Observation (INO) ==
[2019-12-06] MEDS ORDERED: 0.9 % SODIUM CHLORIDE 1,000 ML IV ONE (14:38)
[2019-12-06] MEDS ORDERED: ONDANSETRON 4 MG/2 ML VIAL IV ONE (14:42)
[2019-12-06] MEDS ORDERED: LACTATED RINGERS 1,000 ML IV ONE (14:42)
--- NOTE | 2019-12-06 14:43 | Emergency Department Note ---
General Adult HPI - General Chief complaint: Syncope Stated complaint: weakness and syncope Time Seen by Provider: 12/06/19 14:23 Source: patient Mode of arrival: ambulatory Limitations: no limitations - History of Present Illness HPI Narrative: This patient is a home peritoneal dialysis patient who has been feeling a little lightheaded with possible low blood pressure though her blood pressure is fine here. She is developed a lot of nausea today. Rarely has some diarrhea. No abdominal pain. She was treated recently for pneumonia and this seems to be improved. - Related Data Home Medications Medication Instructions Recorded Confirmed Lidocaine 1 patch TOPICAL PRN PRN 07/30/18 11/19/19 Fluticasone/Salmeterol [Advair 1 puff INH Q12 12/04/18 11/19/19 250-50 Diskus] Cinacalcet HCl [Sensipar] 60 mg PO QDAY 12/17/18 11/19/19 Cinacalcet [Sensipar] 30 mg PO QPM 12/17/18 11/19/19 Folic Acid/Vitamin B Comp W-C 1 tab PO DAILY 12/17/18 11/19/19 [Diatx] Ascorbate Calcium [Vitamin C] 500 mg PO DAILY 11/19/19 11/19/19 Calcitriol [Rocaltrol] 0.25 mcg PO DAILY 11/19/19 11/19/19 Ferrous Sulfate 650 mg PO QDAY 11/19/19 11/19/19 Furosemide [Lasix] 120 mg PO BID 11/19/19 11/19/19 Loperamide [Imodium] 2 mg PO DAILYP PRN 11/19/19 11/19/19 Ondansetron HCl [Zofran] 4 mg PO QAM PRN 11/19/19 11/19/19 Pantoprazole Sodium 20 mg PO QDAY 11/19/19 11/19/19 Potassium Chloride 40 meq PO DAILY 11/19/19 11/19/19 Sevelamer Carbonate 0.8 g PO TID 11/19/19 11/19/19 glipiZIDE [Glucotrol] 2.5 mg PO QAM PRN 11/19/19 11/19/19 glipiZIDE [Glucotrol] 5 mg PO QPM PRN 11/19/19 11/19/19 traZODone HCL [Desyrel] 25 mg PO HS 11/19/19 11/19/19 Previous Rx's Medication Instructions Recorded amlodipine 10 mg tablet 10 mg PO QDAY #90 tab 02/19/19 atorvastatin 20 mg tablet 20 mg PO QHS #90 tab 02/20/19 gentamicin 0.1 % topical cream 1 applic TOPICAL QDAY #30 g 06/04/19 cholecalciferol (vitamin D3) 50 2,000 unit PO QDAY #30 cap 07/02/19 mcg (2,000 unit) capsule LORazepam [Ativan] 1 mg PO TIDP PRN #14 tab 11/10/19 Levofloxacin [Levaquin] 500 mg PO Q48 #6 tab 11/23/19 Allergies Allergy/AdvReac Type Severity Reaction Status Date / Time Penicillins Allergy Mild Hives Verified 11/19/19 03:05 ciprofloxacin [From Cipro] AdvReac Mild "Intoleranc Verified 11/19/19 03:05 e codeine AdvReac Mild Vomiting Verified 11/19/19 03:05 hydrocodone AdvReac Mild Vomiting Verified 11/19/19 03:05 tramadol AdvReac Unknown Unknown Verified 10/01/19 10:54 Review of Systems All systems ED: reviewed and negative except as stated. Past Medical History - Past Medical History [facility] Narrative: Medical History (Last Updated 11/28/19 @ 10:20 by Nancy Gonzales MD) Abdominal pain (Acute) Urinary retention (Acute) Hypertensive renal disease (Chronic) Proteinuria (Chronic) Edema (Chronic) Secondary hyperparathyroidism of renal origin (Chronic) Diabetes mellitus (Chronic) Vitamin D deficiency (Acute) Sinusitis, chronic (Acute) Seborrheic keratosis (Acute) Overweight (Acute) Osteoporosis (Acute) Obesity (Acute) Insomnia (Chronic) Hypertensive heart disease, benign w/chronic kidney disease stage 1-4 (Acute) Hyperlipidemia (Acute) Hypertension (Acute) Gastroesophageal reflux (Acute) Diabetes mellitus, type II (Acute) Depression (Acute) COPD (chronic obstructive pulmonary disease) (Acute) Anxiety (Acute) Diarrhea (Chronic) Duodenitis (Chronic) Esophageal ring (Chronic) Gastritis (Chronic) Hiatal hernia (Chronic) Past Surgical History (Last Updated 11/28/19 @ 10:17 by Nancy Gonzales MD) Hx of hysterectomy (Acute) Hx of esophagogastroduodenoscopy (Acute) H/O colonoscopy (Chronic ~12/20/18) Family History (Last Reviewed 12/26/18 @ 14:00 by Kayley Fisher RN) mother Rheumatoid arthritis Malignant neoplasm of colon brother Diabetes mellitus Morbid obesity sister x2 Diabetes mellitus sister Parkinson's Disease Pneumonia, Onset Age: 59 Sister Renal failure Medical history: Reports: cancer, hypertension, other (Type 2 diabetes, Hypertension, coronary artery disease, Hyperlipidemia, COPD, kidney disease, chronic anemia due to kidney disease, hyperparathyroidism of renal origin) Surgical history ED: Reports: non-contributory - Social History smoking status: Former smoker Alcohol use: Reports: None Physical Exam Limitations: no limitations General appearance: alert Head: atraumatic Eye: Present: normal appearance ENT: Present: normal exam Neck: Present: normal inspection Chest: Present: normal inspection Respiratory: Present: normal lung sounds bilaterally Cardiovascular: Present: regular rate, normal rhythm, normal heart sounds Abdominal: Present: soft. Absent: distention, tenderness Neurological: Present: alert Psychiatric: Present: normal affect Skin: Present: warm, dry Course Vital Signs Temperature 97.5 F 12/06/19 14:13 Pulse Rate 102 H 12/06/19 14:13 Respiratory Rate 20 12/06/19 14:13 Blood Pressure 121/70 12/06/19 14:13 Pulse Oximetry (%) 94 12/06/19 14:13 Temperature 97.5 F 12/06/19 14:13 Pulse Rate 93 H 12/06/19 17:06 Respiratory Rate 34 H 12/06/19 16:46 Blood Pressure 126/60 12/06/19 17:01 Pulse Oximetry (%) 92 12/06/19 17:06 Medical Decision Making - [facility] Narrative Medical decision making narrative: This patient has an elevated calcium and phosphorus of 12.3 and 7.9. She will be admitted March by the hospitalist with Dr. Wil monsivais. - Lab Data Lab results reviewed: Yes I reviewed the patient's lab results. Result diagrams: 12/06/19 15:42 12/06/19 14:40 Lab Results 12/06/19 12/06/19 12/06/19 Range/Units 14:40 14:40 14:40 WBC TNP RBC TNP Hgb TNP Hct TNP MCV TNP MCH TNP MCHC TNP RDW TNP Plt Count TNP MPV TNP Gran % (38.0-78.0) % Lymph % (Auto) (15.5-49.0) % [place] % (Auto) (1.0-12.0) % Eos % (Auto) (0.0-7.0) % Baso % (Auto) (0.0-2.0) % Gran # (1.80-8.00) K/mcL Lymph # (Auto) (1.50-4.80) K/mcL [place] # (Auto) (0.10-0.90) K/mcL Eos # (Auto) (0.00-0.70) K/mcL Baso # (Auto) (0.00-0.30) K/mcL Sodium 135 (133-145) mmol/L Potassium 3.8 (3.3-5.1) mmol/L Chloride 90 L (96-108) mmol/L Carbon Dioxide 27 (22-30) mmol/L Anion Gap 18.0 H (8-16) BUN 33 H (8-23) mg/dl Creatinine 8.0 H* (0.6-1.1) mg/dl GFR Calculation 4 Glucose 83 (70-105) mg/dL Calcium 12.3 H (8.6-10.4) mg/dl Phosphorus 7.9 H* (2.7-4.5) mg/dL Total Bilirubin 0.2 (0.0-1.0) mg/dL AST 20 (0-37) U/l ALT 10 (0-40) U/l Alkaline Phosphatase 90 (39-117) U/L Total Protein 7.1 (5.9-8.4) gm/dL Albumin 3.7 (3.2-5.2) gm/dL Globulin 3.4 (2.2-3.7) gm/dL Albumin/Globulin Ratio 1.1 (1.0-2.3) Urine Color Urine Appearance Urine pH (5.0-9.0) Ur Specific [place] (1.000-1.035) Urine Protein (NEG) mg/dL Urine Glucose (UA) (NEG) mg/dL Urine Ketones (NEG) mg/dL Urine Occult Blood (<0.03) mg/dL Urine Nitrate (NEG) Urine Bilirubin (NEG) mg/dL Urine Urobilinogen (NEG) mg/dL Ur Leukocyte Esterase (NEG) /uL Urine RBC (0-1) /hpf Urine WBC (0-4) /hpf Ur Squamous Epith Cells (0-4) /hpf Urine Bacteria (0) /hpf Ur Culture Indicated? 12/06/19 12/06/19 Range/Units 15:36 15:42 WBC 9.0 RBC 3.51 L Hgb 9.8 L Hct 30.9 L MCV 88.0 MCH 27.9 MCHC 31.7 RDW 15.7 H Plt Count 259 MPV 9.2 Gran % 68.6 (38.0-78.0) % Lymph % (Auto) 19.7 (15.5-49.0) % [place] % (Auto) 10.7 (1.0-12.0) % Eos % (Auto) 0.8 (0.0-7.0) % Baso % (Auto) 0.2 (0.0-2.0) % Gran # 6.18 (1.80-8.00) K/mcL Lymph # (Auto) 1.77 (1.50-4.80) K/mcL [place] # (Auto) 0.96 H (0.10-0.90) K/mcL Eos # (Auto) 0.07 (0.00-0.70) K/mcL Baso # (Auto) 0.02 (0.00-0.30) K/mcL Sodium (133-145) mmol/L Potassium (3.3-5.1) mmol/L Chloride (96-108) mmol/L Carbon Dioxide (22-30) mmol/L Anion Gap (8-16) BUN (8-23) mg/dl Creatinine (0.6-1.1) mg/dl GFR Calculation Glucose (70-105) mg/dL Calcium (8.6-10.4) mg/dl Phosphorus (2.7-4.5) mg/dL Total Bilirubin (0.0-1.0) mg/dL AST (0-37) U/l ALT (0-40) U/l Alkaline Phosphatase (39-117) U/L Total Protein (5.9-8.4) gm/dL Albumin (3.2-5.2) gm/dL Globulin (2.2-3.7) gm/dL Albumin/Globulin Ratio (1.0-2.3) Urine Color [place]ana Urine Appearance Cloudy Urine pH 5.0 (5.0-9.0) Ur Specific [place] 1.019 (1.000-1.035) Urine Protein 100 A (NEG) mg/dL Urine Glucose (UA) Negative (NEG) mg/dL Urine Ketones 5/tr A (NEG) mg/dL Urine Occult Blood Neg (<0.03) mg/dL Urine Nitrate Neg (NEG) Urine Bilirubin Neg (NEG) mg/dL Urine Urobilinogen Neg (NEG) mg/dL Ur Leukocyte Esterase 75 A (NEG) /uL Urine RBC 9 H (0-1) /hpf Urine WBC 24 H (0-4) /hpf Ur Squamous Epith Cells 40 H (0-4) /hpf Urine Bacteria 0 (0) /hpf Ur Culture Indicated? No Disposition Pt seen by [facility] [facility]/PA only: No Clinical Impression: ESRD (end stage renal disease), Hypercalcemia, Hyperphosphatemia Disposition: Xfer As Outpt/Obs ([facility]) Condition: Good Referrals: Sky Ceja MD [Primary Care Provider] - Time of Disposition: 17:36
[2019-12-06 15:33] LABS: ALT/SGPT 10 U/l (0-40); AST/SGOT 20 U/l (0-37); Albumin 3.7 gm/dL (3.2-5.2); Alkaline Phosphatase 90 U/L (39-117); Bilirubin,Total 0.2 mg/dL (0.0-1.0); Blood Urea Nitrogen 33 mg/dl (8-23); Carbon Dioxide 27 mmol/L (22-30); Glucose 83 mg/dL (70-105)
[2019-12-06 15:38] LABS: Albumin/Globulin Ratio 1.1 (1.0-2.3); Calcium 12.3 mg/dl (8.6-10.4); Chloride 90 mmol/L (96-108); Globulin 3.4 gm/dL (2.2-3.7); Glomerular Filtration Rate 4
[2019-12-06 16:11] LABS: Basophils # (Auto) 0.02 K/mcL (0.00-0.30); Basophils % (Auto) 0.2 % (0.0-2.0); Eosinophils # (Auto) 0.07 K/mcL (0.00-0.70); Eosinophils % (Auto) 0.8 % (0.0-7.0); Granulocytes % (Auto) 68.6 % (38.0-78.0); Hematocrit 30.9 % (34.1-44.9); Hemoglobin 9.8 g/dL (11.2-15.7); Lymphocytes # (Auto) 1.77 K/mcL (1.50-4.80); Lymphocytes % (Auto) 19.7 % (15.5-49.0); Mean Corpuscular HGB Conc 31.7 g/dL (31.0-36.0); Mean Platelet Volume 9.2 fL (7.4-10.4); Monocytes # (Auto) 0.96 K/mcL (0.10-0.90); Monocytes % (Auto) 10.7 % (1.0-12.0); Platelet Count 259 K/mcL (140-440); RBC 3.51 M/mcL (3.59-5.38); Red Cell Distribution Width 15.7 % (11.5-14.5)
[2019-12-06 16:29] LABS: Appearance,Urine CLOUDY; Bacteria,Urine 0 /hpf (0); Bilirubin,Urine NEG (NEG); Color,Urine AMBER; Culture Indicated,Urine NO; Glucose,Urine (UA) NEGATIVE (NEG); Ketones,Urine 5/TR mg/dL (NEG); Leukocyte Esterase,Urine 75 /uL (NEG); Nitrate,Urine NEG (NEG); Protein,Urine 100 mg/dL (NEG); Specific Gravity,Urine 1.019 (1.000-1.035); Urine Blood NEG mg/dL (<0.03); Urine RBC 9 /hpf (0-1); Urine Squamous Epithelial Cell 40 /hpf (0-4); Urine WBC 24 /hpf (0-4); Urobilinogen,Urine NEG (NEG)
--- NOTE | 2019-12-06 17:35 | Nephrology Consult Note ---
History of Present Illness - Reason for Consult Patient information: Note initiated : 12/06/19 at 5:33 pm Patient: Ema Vang 79 y/o F admitted on for weakness and syncope. Consult date: 12/06/19 end stage renal disease - Chief Complaint Weakness - History of Present Illness Ema Vang is a 79-year-old female with end-stage renal disease on chronic peritoneal dialysis (followed by Dr. 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 Her work up in ED was significant for hypercalcemia and hyperphosphatemia. Her symptoms are probably associated with these findings. She already has a work up ordered earlier this weak. Review of Systems Constitutional: lethargy, weakness, no fever(s) Nose, mouth and throat: no nasal congestion, no sore throat Cardiovascular: no chest pain, no palpatations Respiratory: no cough, no dyspnea Gastrointestinal: no abdominal pain, no diarrhea Genitourinary: no dysuria, no hematuria Musculoskeletal: other (myoclonic jerks) Integumentary: pruritus, no wounds Neurological: no confusion, no focal weakness Psychiatric: no anxiety, no panic attacks Endocrine: no cold intolerance, no heat intolerance Hematologic/Lymphatic: no easy bleeding, no easy bruising Allergic/Immunologic: no tongue swelling, no uticaria Past History Past medical history: Medical History (Last Updated 11/28/19 @ 10:20 by Nancy Gonzales MD) Abdominal pain (Acute) Urinary retention (Acute) Hypertensive renal disease (Chronic) Proteinuria (Chronic) Edema (Chronic) Secondary hyperparathyroidism of renal origin (Chronic) Diabetes mellitus (Chronic) Vitamin D deficiency (Acute) Sinusitis, chronic (Acute) Seborrheic keratosis (Acute) Overweight (Acute) Osteoporosis (Acute) Obesity (Acute) Insomnia (Chronic) Hypertensive heart disease, benign w/chronic kidney disease stage 1-4 (Acute) Hyperlipidemia (Acute) Hypertension (Acute) Gastroesophageal reflux (Acute) Diabetes mellitus, type II (Acute) Depression (Acute) COPD (chronic obstructive pulmonary disease) (Acute) Anxiety (Acute) Diarrhea (Chronic) Duodenitis (Chronic) Esophageal ring (Chronic) Gastritis (Chronic) Hiatal hernia (Chronic) Past surgical history: Past Surgical History (Last Updated 11/28/19 @ 10:17 by Nancy Gonzales MD) Hx of hysterectomy (Acute) Hx of esophagogastroduodenoscopy (Acute) H/O colonoscopy (Chronic ~12/20/18) Past family history: Family History (Last Reviewed 12/26/18 @ 14:00 by Kayley Fisher RN) mother Rheumatoid arthritis Malignant neoplasm of colon brother Diabetes mellitus Morbid obesity sister x2 Diabetes mellitus sister Parkinson's Disease Pneumonia, Onset Age: 59 Sister Renal failure Past social history: Smoking status: Former smoker Alcohol use: Reports: None Medications and Allergies Home Medications Medication Instructions Recorded Confirmed Type Lidocaine 1 patch TOPICAL PRN PRN 07/30/18 11/19/19 History Fluticasone/Salmeterol [Advair 1 puff INH Q12 12/04/18 11/19/19 History 250-50 Diskus] Cinacalcet HCl [Sensipar] 60 mg PO QDAY 12/17/18 11/19/19 History Cinacalcet [Sensipar] 30 mg PO QPM 12/17/18 11/19/19 History Folic Acid/Vitamin B Comp W-C 1 tab PO DAILY 12/17/18 11/19/19 History [Diatx] amlodipine 10 mg tablet 10 mg PO QDAY #90 tab 02/19/19 11/19/19 Rx atorvastatin 20 mg tablet 20 mg PO QHS #90 tab 02/20/19 11/19/19 Rx gentamicin 0.1 % topical cream 1 applic TOPICAL QDAY #30 g 06/04/19 11/19/19 Rx cholecalciferol (vitamin D3) 50 2,000 unit PO QDAY #30 cap 07/02/19 11/19/19 Rx mcg (2,000 unit) capsule LORazepam [Ativan] 1 mg PO TIDP PRN #14 tab 11/10/19 11/19/19 Rx Ascorbate Calcium [Vitamin C] 500 mg PO DAILY 11/19/19 11/19/19 History Calcitriol [Rocaltrol] 0.25 mcg PO DAILY 11/19/19 11/19/19 History Ferrous Sulfate 650 mg PO QDAY 11/19/19 11/19/19 History Furosemide [Lasix] 120 mg PO BID 11/19/19 11/19/19 History Loperamide [Imodium] 2 mg PO DAILYP PRN 11/19/19 11/19/19 History Ondansetron HCl [Zofran] 4 mg PO QAM PRN 11/19/19 11/19/19 History Pantoprazole Sodium 20 mg PO QDAY 11/19/19 11/19/19 History Potassium Chloride 40 meq PO DAILY 11/19/19 11/19/19 History Sevelamer Carbonate 0.8 g PO TID 11/19/19 11/19/19 History glipiZIDE [Glucotrol] 2.5 mg PO QAM PRN 11/19/19 11/19/19 History glipiZIDE [Glucotrol] 5 mg PO QPM PRN 11/19/19 11/19/19 History traZODone HCL [Desyrel] 25 mg PO HS 11/19/19 11/19/19 History Levofloxacin [Levaquin] 500 mg PO Q48 #6 tab 11/23/19 Rx Allergies Allergy/AdvReac Type Severity Reaction Status Date / Time Penicillins Allergy Mild Hives Verified 11/19/19 03:05 ciprofloxacin [From Cipro] AdvReac Mild "Intoleranc Verified 11/19/19 03:05 e codeine AdvReac Mild Vomiting Verified 11/19/19 03:05 hydrocodone AdvReac Mild Vomiting Verified 11/19/19 03:05 tramadol AdvReac Unknown Unknown Verified 10/01/19 10:54 Exam - Vital Signs Vital signs: Temp Pulse Resp BP Pulse Ox 97.5 F 93 H 34 H 126/60 92 12/06/19 14:13 12/06/19 17:06 12/06/19 16:46 12/06/19 17:01 12/06/19 17:06 - General Appearance General appearance: chronically ill, fatigue EENT: mucous membranes dry Neck: supple Respiratory: clear Cardiology: no edema Gastrointestinal: no tenderness Integumentary: warm and dry Neurologic: no focal deficit, alert and oriented x3 Musculoskeletal: no deformities Psychiatric: mood/affect appropriate, cooperative Results - Lab Results 12/06/19 15:42 12/06/19 14:40 Most recent lab results Calcium 12.3 mg/dl (8.6-10.4) H 12/06/19 14:40 Phosphorus 7.9 mg/dL (2.7-4.5) H* 12/06/19 14:40 Assessment and Plan (1) ESRD on peritoneal dialysis Ema Vang is a 79-year-old female with end-stage renal disease on chronic peritoneal dialysis (followed by Dr. 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 Her work up in ED was significant for hypercalcemia and hyp erphosphatemia. Her symptoms are probably associated with these findings. She already has a work up ordered earlier this weak. Work up: Thyroid US on 11/06/19: Multinodular goiter. No adenoma. Recommend NM scan. Labs on 12/03/19: Free [place]/Lambda ratio: 1.19, Serum SPEP/TREVOR normal; no monoclonal proteins. Labs on 10/29/19: PTH (intact) 609. Recommendations/Plan: Hold Calcium, Vitamin D and Vitamin C. Increase Cinacalcet to 60 mg twice daily. Increase Sevelamer to 1600 mg three times daily with meals. Check Vitamin D Total (25-Hydroxy) level. CCPD nightly with 1.5%, total time 9 hours. Outpatient endocrinology referral (Jamee or DEANNE) for parathyroid surgery evaluation after discharge. Status: Acute Priority: Medium (2) Hypercalcemia Status: Chronic Priority: Medium (3) Hyperphosphatemia Status: Acute Priority: Medium
[2019-12-06] MEDS ORDERED: DEXTROSE 50% 50 ML VIAL IV PRN (19:23)
[2019-12-06] MEDS ORDERED: IPRATROPIUM/ALBUTEROL 3 ML AMPUL.NEB NEB PRN (19:23)
[2019-12-06] MEDS ORDERED: DEXTROSE 31 GM ORAL.SUSP PO PRN (19:23)
[2019-12-06] MEDS ORDERED: glipiZIDE 5 MG TABLET PO PRN ×2 (19:32)
[2019-12-06] MEDS ORDERED: LORazepam 1 MG TABLET PO PRN (19:32)
--- NOTE | 2019-12-06 19:43 | Internal Med History&Physical ---
Medical - H&P: [facility] Patient information: Note initiated : 12/06/19 at 7:37 pm Service Date, if different from initiated Date: [] Patient: Ema Vang a 79 y/o F admitted on for weakness and syncope. Chief Complaint: [weakness, itching and myoclonic jerks] History of present illness: Ms. Vang is a 79 year old F with a history of ESRD on chronic peritoneal dialysis (followed by Dr. 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 Patient states that she has been having whole body itching, weakness, and myoclonic jerking movement for 1.5-2 weeks associated with dizziness, nausea, and vomiting. Otherwise she is fine. Denies headache, chest pain, shortness of breath, abdominal pain, dysuria, fever, chills, or palpitation. In the ER, she was found to have hypocalcemia and hypophosphatemia. When I saw this patient in the ER, other than mentioned above, she was fine. She was admitted to the hospital on November 19, 2019 for pneumonia. Denied recent travel or sick contact. Review of systems: Positive these symptoms mentioned in H&P all other systems were reviewed and are negative. Medical - H&P: [facility] Medical history: nd-stage renal disease on chronic peritoneal dialysis (followed by Dr. Gonzales), secondary hyperparathyroidism of renal origin, chronic anemia due to kidney disease, coronary artery disease by calcifications on CT, diabetes mellitus type 2, hypertension, hyperlipidemia, chronic obstructive pulmonary disease Family history: reviewed and not pertinent (Mother had a colon cancer) Have you smoked in the last 12 months: No Drug use: none Alcohol use: none Medical - H&P: Meds Home Medications Medication Instructions Recorded Confirmed Type Lidocaine 1 patch TOPICAL PRN PRN 07/30/18 12/06/19 History Fluticasone/Salmeterol [Advair 1 puff INH Q12 12/04/18 12/06/19 History 250-50 Diskus] Cinacalcet HCl [Sensipar] 60 mg PO QDAY 12/17/18 12/06/19 History Cinacalcet [Sensipar] 30 mg PO QPM 12/17/18 12/06/19 History Folic Acid/Vitamin B Comp W-C 1 tab PO DAILY 12/17/18 12/06/19 History [Diatx] amlodipine 10 mg tablet 10 mg PO QDAY #90 tab 02/19/19 12/06/19 Rx atorvastatin 20 mg tablet 20 mg PO QHS #90 tab 02/20/19 12/06/19 Rx gentamicin 0.1 % topical cream 1 applic TOPICAL QDAY #30 g 06/04/19 12/06/19 Rx cholecalciferol (vitamin D3) 50 2,000 unit PO QDAY #30 cap 07/02/19 12/06/19 Rx mcg (2,000 unit) capsule LORazepam [Ativan] 1 mg PO TIDP PRN #14 tab 11/10/19 12/06/19 Rx Ascorbate Calcium [Vitamin C] 500 mg PO DAILY 11/19/19 12/06/19 History Calcitriol [Rocaltrol] 0.25 mcg PO DAILY 11/19/19 12/06/19 History Ferrous Sulfate 650 mg PO QDAY 11/19/19 12/06/19 History Furosemide [Lasix] 120 mg PO BID 11/19/19 12/06/19 History Loperamide [Imodium] 2 mg PO DAILYP PRN 11/19/19 12/06/19 History Ondansetron HCl [Zofran] 4 mg PO QAM PRN 11/19/19 12/06/19 History Pantoprazole Sodium 20 mg PO QDAY 11/19/19 12/06/19 History Potassium Chloride 40 meq PO DAILY 11/19/19 12/06/19 History Sevelamer Carbonate 0.8 g PO TID 11/19/19 12/06/19 History glipiZIDE [Glucotrol] 2.5 mg PO QAM PRN 11/19/19 12/06/19 History glipiZIDE [Glucotrol] 5 mg PO QPM PRN 11/19/19 12/06/19 History traZODone HCL [Desyrel] 25 mg PO HS 11/19/19 12/06/19 History Levofloxacin [Levaquin] 500 mg PO Q48 #6 tab 11/23/19 12/06/19 Rx Allergies Allergy/AdvReac Type Severity Reaction Status Date / Time Penicillins Allergy Mild Hives Verified 11/19/19 03:05 ciprofloxacin [From Cipro] AdvReac Mild "Intoleranc Verified 11/19/19 03:05 e codeine AdvReac Mild Vomiting Verified 11/19/19 03:05 hydrocodone AdvReac Mild Vomiting Verified 11/19/19 03:05 tramadol AdvReac Unknown Unknown Verified 10/01/19 10:54 Medical - H&P: Exam - Constitutional Vitals: Temp Pulse Resp BP Pulse Ox 97.5 F 97 H 24 H 108/59 89 L 12/06/19 14:13 12/06/19 18:18 12/06/19 18:18 12/06/19 18:18 12/06/19 18:18 - Other Additional findings: General - No acute distress Eyes - PERRLA, EOM intact ENT no rhinorrhea, no noticeable or palpable swelling, no redness or rash around throat or on face Neck supple, no JVD, no thyromegaly Respiratory: Lungs -diminished breathing sounds, no wheezing or crackles. Cardiovascular - RRR no m/r/g, GI - Normal bowel sounds, no distended, soft. Peritoneal dialysis catheter in place without signs of infection. Extremeties - No edema, cyanosis or clubbing Hemo/lymphatic/immune no lymphadenopathy Neurological Alert and oriented x 3, no focal neurological deficits. Psychiatry flat affect Medical - H&P: Reslt - Labs CBC & Chem 7: 12/06/19 15:42 12/06/19 14:40 Labs: Short CBC 12/06/19 12/06/19 Range/Units 14:40 15:42 WBC TNP 9.0 Hgb TNP 9.8 L Hct TNP 30.9 L Plt Count TNP 259 BMP 12/06/19 14:40 Sodium 135 Potassium 3.8 Chloride 90 L Carbon Dioxide 27 BUN 33 H Creatinine 8.0 H* Glucose 83 Calcium 12.3 H Liver Function 12/06/19 Range/Units 14:40 Total Bilirubin 0.2 (0.0-1.0) mg/dL AST 20 (0-37) U/l ALT 10 (0-40) U/l Alkaline Phosphatase 90 (39-117) U/L Albumin 3.7 (3.2-5.2) gm/dL Urine 12/06/19 Range/Units 15:36 Urine Color Adriana Urine Appearance Cloudy Urine pH 5.0 (5.0-9.0) Ur Specific [place] 1.019 (1.000-1.035) Urine Protein 100 A (NEG) mg/dL Urine Glucose (UA) Negative (NEG) mg/dL Medical - H&P: A/P - Narrative A/P Narrative: Assessment: 1. Hypercalcemia 2. Hyperphosphatemia 3. ESRD on peritoneal dialysis 4. Chronic anemia due to ESRD 5. 2nd hyperparathyroidism of renal origin 6. DM type 2 7. Hypertensive heart disease 8. COPD 9. Hx of HTN 10. Acute hypoxic respiratory failure Plan: 1. In the ER, cable tool operator Dr. Gorman was consulted. As per Dr. Gorman, Hold Calcium, Vitamin D and Vitamin C. Increase Cinacalcet to 60 mg twice daily. Increase Sevelamer to 1600 mg three times daily with meals. Check Vitamin D Total (25-Hydroxy) level. CCPD nightly with 1.5%, total time 9 hours. Outpatient endocrinology referral (Jamee or DEANNE) for parathyroid surgery evaluation after discharge. senior electrical design engineer EKG no QRS and T wave change Repeat calcium and phosphor in am 1 LNS was given in the ER 2. ESRD on peritoneal dialysis. Dr. Gorman is on board 3. Repeat H&H in the morning 4. Continue home glipizide 2.5 mg in the morning and 5 mg in the evening insulin sliding scale 5. COPD stable, inhaler 6. Pulse ox. Oxygen 7. DVT prophylaxis: Heparin CODE STATUS: Full
[2019-12-06 19:57] LABS: Hemoglobin A1C 6.1 % HGB (4.0-6.0)
[2019-12-06] MEDS: SEVELAMER 800 MG TABLET PO SCH (22:42)
[2019-12-06] MEDS: HEPARIN 5,000 UNIT/ML VIAL SQ SCH (22:42)
[2019-12-06] MEDS: ATORVASTATIN 20 MG TABLET PO SCH (22:42)
[2019-12-06] MEDS: FUROSEMIDE 80 MG TABLET PO SCH (22:43)
[2019-12-06] MEDS: INSULIN LISPRO 1 UNIT/0.01 ML UNIT SQ SCH (22:43)
[2019-12-06] MEDS: DOCUSATE SODIUM 100 MG CAPSULE PO SCH (23:11)
[2019-12-06] MEDS: traZODone HCL 50 MG TABLET PO SCH (23:11)
[2019-12-06] MEDS: FLUTICASONE/SALMETEROL 250/50 INHALER #14 INH SCH (23:11)
[2019-12-06] MEDS: SENNOSIDES 1 TABLET PO SCH (23:12)
[2019-12-06] MEDS: 0.9 % SODIUM CHLORIDE 10 ML SYRINGE IV SCH (23:13)
--- NOTE | 2019-12-07 05:39 | Nephrology Progress Note ---
Subjective Patient information: Note initiated : 12/07/19 at 5:36 am Patient: Ema Vang 79 y/o F admitted on 12/06/19 for weakness and sy ncope. Chief Complaint: Weakness Pertinent ROS: Weakness Sleepy Itching Musculoskeletal jerks No edema No nausea Objective - Vital Signs Vital signs: Vital Signs Temp Pulse Pulse Resp BP BP Pulse Ox 12/07/19 04:12 98.1 F 82 16 123/63 91 12/06/19 23:48 88 18 96 12/06/19 23:18 98.7 F 87 18 98/65 96 12/06/19 20:57 96.0 F L 124/63 12/06/19 19:53 97.7 F 96 H 18 124/63 92 12/06/19 18:18 97 H 24 H 108/59 89 L 12/06/19 18:17 97 H 22 108/59 91 12/06/19 17:31 95 H 124/61 91 12/06/19 17:16 94 H 125/57 90 12/06/19 17:06 93 H 92 12/06/19 17:01 94 H 126/60 90 12/06/19 16:46 98 H 34 H 123/65 91 12/06/19 16:32 102 H 11 L 105/42 92 12/06/19 16:16 94 H 34 H 121/58 95 12/06/19 16:01 94 H 20 133/65 92 12/06/19 15:46 96 H 124/64 90 12/06/19 15:31 95 H 117/59 92 12/06/19 15:16 95 H 125/64 91 12/06/19 15:04 94 H 124/66 94 12/06/19 14:47 93 H 131/69 96 12/06/19 14:19 102 H 21 121/70 94 12/06/19 14:13 97.5 F 102 H 20 121/70 94 Intake and Output 12/06/19 12/06/19 12/07/19 13:59 21:59 05:59 Intake Total 1000 100 Output Total 50 50 Balance 950 50 Intake: IV 1000 Sodium Chloride 0.9% 1,000 ml @ 1000 Wide Open IV BOLUS ONE Rx#: [id number] Oral 100 Output: Void Amount 50 50 Other: Meal Diced [place] Percent of Meal Consumed 100% Feeding Ability Independent Stool Size Large Stool Color Brown Stool Consistency Soft Formed # Bowel Movements 1 Weight 144 lb 11.2 oz Patient Weight 12/07/19 05:59 Weight 144 lb 11.2 oz Intake & Output: Intake & Output 12/06/19 12/06/19 12/07/19 13:59 21:59 05:59 Intake Total 1000 100 Output Total 50 50 Balance 950 50 Weight 144 lb 11.2 oz Intake: IV 1000 Sodium Chloride 0.9% 1,000 ml @ 1000 Wide Open IV BOLUS ONE Rx#: [id number] Oral 100 Output: Void Amount 50 50 Other: Meal Diced [place] Percent of Meal Consumed 100% Feeding Ability Independent Stool Size Large Stool Color Brown Stool Consistency Soft Formed # Bowel Movements 1 - General Appearance General appearance: chronically ill, fatigue EENT: mucous membranes moist Neck: supple Respiratory: clear Cardiology: no edema Gastrointestinal: no tenderness Integumentary: warm and dry Neurologic: no focal deficit, alert and oriented x3 Musculoskeletal: no deformities Psychiatric: mood/affect appropriate, cooperative - Lab 12/07/19 05:26 12/07/19 05:26 Most recent lab results Calcium 12.3 mg/dl (8.6-10.4) H 12/06/19 14:40 Phosphorus 7.9 mg/dL (2.7-4.5) H* 12/06/19 14:40 Assessment and Plan (1) ESRD on peritoneal dialysis Ema Vang is a 79-year-old female with end-stage renal disease on chronic peritoneal dialysis (followed by Dr. 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 Her work up in ED was significant for hypercalcemia and hyperphosphatemia. Her symptoms are probably associated with these findings. She already has a work up ordered earlier this weak. Work up: Thyroid US on 11/06/19: Multinodular goiter. No adenoma. Recommend NM scan. Labs on 12/03/19: Free [place]/Lambda ratio: 1.19, Serum SPEP/TREVOR normal; no monoclonal proteins. Labs on 10/29/19: PTH (intact) 609. Treatment: Cinacalcet increased from 90 mg to 180 mg daily (maximum dose). Sevelamer 1600 mg three times daily with meals. Progress: Hypercalcemia associated with hyperparathyroidism, improved. Hyperphosphatemia, improved. Recommendations/Plan: CCPD nightly with 1.5%, total time 9 hours. Outpatient endocrinology referral (Jamee or DEANNE) for parathyroid surgery evaluation after discharge. Status: Chronic Priority: Medium (2) Hypercalcemia Status: Acute Priority: Medium (3) Hyperphosphatemia Status: Acute Priority: Medium
[2019-12-07] MEDS: 0.9 % SODIUM CHLORIDE 10 ML SYRINGE IV SCH ×3 (06:06→22:55)
[2019-12-07 06:50] LABS: Basophils # (Auto) 0.03 K/mcL (0.00-0.30); Basophils % (Auto) 0.3 % (0.0-2.0); Eosinophils # (Auto) 0.23 K/mcL (0.00-0.70); Eosinophils % (Auto) 2.5 % (0.0-7.0); Granulocytes % (Auto) 59.5 % (38.0-78.0); Hematocrit 30.8 % (34.1-44.9); Hemoglobin 9.6 g/dL (11.2-15.7); Lymphocytes % (Auto) 25.5 % (15.5-49.0); Mean Cell Volume 88.8 fL (80.0-100.0); Mean Corpuscular HGB Conc 31.2 g/dL (31.0-36.0); Mean Platelet Volume 9.3 fL (7.4-10.4); Monocytes % (Auto) 12.2 % (1.0-12.0); Platelet Count 283 K/mcL (140-440); RBC 3.47 M/mcL (3.59-5.38); Red Cell Distribution Width 15.5 % (11.5-14.5)
[2019-12-07 07:24] LABS: Thyroid Stimulating Hormone 1.19 uIU/ml (0.27-5.01)
[2019-12-07 07:49] LABS: ALT/SGPT 8 U/l (0-40); AST/SGOT 15 U/l (0-37); Albumin/Globulin Ratio 0.9 (1.0-2.3); Alkaline Phosphatase 79 U/L (39-117); Bilirubin,Total 0.2 mg/dL (0.0-1.0); Blood Urea Nitrogen 29 mg/dl (8-23); Calcium 11.8 mg/dl (8.6-10.4); Carbon Dioxide 26 mmol/L (22-30); Chloride 95 mmol/L (96-108); Globulin 3.3 gm/dL (2.2-3.7); Glomerular Filtration Rate 5; Glucose 109 mg/dL (70-105); Phosphorous 6.7 mg/dL (2.7-4.5)
[2019-12-07] MEDS: SEVELAMER 800 MG TABLET PO SCH ×3 (08:39→22:48)
[2019-12-07] MEDS: FUROSEMIDE 80 MG TABLET PO SCH ×2 (08:40→23:29)
[2019-12-07] MEDS: PANTOPRAZOLE 40 MG TABLET PO SCH (08:40)
[2019-12-07] MEDS: FERROUS SULFATE 325 MG TABLET PO SCH (08:40)
[2019-12-07] MEDS: INSULIN LISPRO 1 UNIT/0.01 ML UNIT SQ SCH ×4 (08:44→21:43)
[2019-12-07] MEDS: CINACALCET 30 MG TABLET PO SCH (08:51)
[2019-12-07] MEDS: HEPARIN 5,000 UNIT/ML VIAL SQ SCH ×2 (08:58→21:42)
[2019-12-07] MEDS: DOCUSATE SODIUM 100 MG CAPSULE PO SCH ×2 (08:58→21:43)
[2019-12-07] MEDS: FLUTICASONE/SALMETEROL 250/50 INHALER #14 INH SCH ×2 (08:58→21:43)
[2019-12-07] MEDS ORDERED: CINACALCET 30 MG TABLET PO SCH ×2 (09:00)
[2019-12-07] MEDS ORDERED: amLODIPine 10 MG TABLET PO SCH (09:00)
--- NOTE | 2019-12-07 09:51 | Internal Med Progress Note ---
Medical - PN: Subj Patient information: Note initiated : 12/07/19 at 9:47 am Service Date, if different from initiated Date: [] Patient: Ema Vang a 79 y/o F admitted on 12/06/19 for weakness and syncope. Chief Complaint: [] Ms. Vang is a 79 year old F with a history of ESRD on chronic peritoneal dialysis (followed by Dr. 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 Patient states that she has been having whole body itching, weakness, and myoclonic jerking movement for 1.5-2 weeks associated with dizziness, nausea, and vomiting. Otherwise she is fine. Denies headache, chest pain, shortness of breath, abdominal pain, dysuria, fever, chills, or palpitation. In the ER, she was found to have hypocalcemia and hypophosphatemia. When I saw this patient in the ER, other than mentioned above, she was fine. She was admitted to the hospital on November 19, 2019 for pneumonia. Denied recent travel or sick contact. 12/06 Today she feels better. stronger, less jerking movement. Vital signs are stable. Calcium and phos trending down. Had dialysis last night for 9hrs. - Constitutional Vitals: Vital Signs Temp Pulse Resp BP Pulse Ox 97.4 F 82 20 92/46 94 12/07/19 08:18 12/07/19 04:12 12/07/19 07:23 12/07/19 08:18 12/07/19 07:23 Period Temp Pulse Resp BP Sys/Hartman Pulse Ox Last 24 Hr 96.0 F-98.7 F 82-102 11-34 92-133/42-70 89-96 Intake and Output 12/06/19 12/07/19 12/07/19 21:59 05:59 13:59 Intake Total 1000 100 Output Total 50 50 75 Balance 950 50 -75 Weight 65.635 kg Intake & Output: Intake & Output 12/06/19 12/07/19 12/07/19 21:59 05:59 13:59 Intake Total 1000 100 Output Total 50 50 75 Balance 950 50 -75 Weight 65.635 kg Intake: IV 1000 Sodium Chloride 0.9% 1,000 ml @ 1000 Wide Open IV BOLUS ONE Rx#: [id number] Oral 100 Output: Void Amount 50 50 75 Other: Meal Diced [place] Percent of Meal Consumed 100% Feeding Ability Independent Stool Size Large Stool Color Brown Stool Consistency Soft Formed # Bowel Movements 1 - Additional findings Additional findings: General - No acute distress Eyes - PERRLA, EOM intact ENT no rhinorrhea, no noticeable or palpable swelling, no redness or rash around throat or on face Neck supple, no JVD, no thyromegaly Respiratory: Lungs -diminished breathing sounds, no wheezing or crackles. Cardiovascular - RRR no m/r/g, GI - Normal bowel sounds, no distended, soft. Peritoneal dialysis catheter in place without signs of infection. Extremeties - No edema, cyanosis or clubbing Hemo/lymphatic/immune no lymphadenopathy Neurological Alert and oriented x 3, no focal neurological deficits. Psychiatry flat affect Medical - PN: Obj Da - Labs CBC & Chem 7: 12/07/19 05:26 12/07/19 05:26 Labs: Abnormal Lab Results 12/07/19 12/07/19 12/06/19 05:26 05:26 15:42 RBC 3.47 L Hgb 9.6 L Hct 30.8 L RDW 15.5 H Benzie % (Auto) 12.2 H Benzie # (Auto) 1.10 H Chloride 95 L Anion Gap BUN 29 H Creatinine 7.5 H* Glucose 109 H Hemoglobin A1c 6.1 H Calcium 11.8 H Phosphorus 6.7 H* NT-Pro-B Natriuret Pep 2144.0 H Albumin 3.0 L Albumin/Globulin Ratio 0.9 L Urine Protein Urine Ketones Ur Leukocyte Esterase Urine RBC Urine WBC Ur Squamous Epith Cells 12/06/19 12/06/19 12/06/19 15:42 15:36 14:40 RBC 3.51 L Hgb 9.8 L Hct 30.9 L RDW 15.7 H Benzie % (Auto) Benzie # (Auto) 0.96 H Chloride Anion Gap BUN Creatinine Glucose Hemoglobin A1c Calcium Phosphorus 7.9 H* NT-Pro-B Natriuret Pep Albumin Albumin/Globulin Ratio Urine Protein 100 A Urine Ketones 5/tr A Ur Leukocyte Esterase 75 A Urine RBC 9 H Urine WBC 24 H Ur Squamous Epith Cells 40 H 12/06/19 14:40 RBC Hgb Hct RDW Benzie % (Auto) Benzie # (Auto) Chloride 90 L Anion Gap 18.0 H BUN 33 H Creatinine 8.0 H* Glucose Hemoglobin A1c Calcium 12.3 H Phosphorus NT-Pro-B Natriuret Pep Albumin Albumin/Globulin Ratio Urine Protein Urine Ketones Ur Leukocyte Esterase Urine RBC Urine WBC Ur Squamous Epith Cells Meds: Medications Albuterol/Ipratropium (Duoneb) 3 ml NEB Q6HRT PRN PRN Reason: Shortness Of Breath Amlodipine Besylate (Norvasc) 10 mg PO QDAY [facility] Last Admin: 12/07/19 08:40 Dose: 10 mg Documented by: Atorvastatin Calcium (Lipitor) 20 mg PO QHS [facility] Last Admin: 12/06/19 22:42 Dose: 20 mg Documented by: [facility] Last Admin: 12/07/19 08:51 Dose: 180 mg Documented by: Dextrose (Dextrose 50%) 0 ml IV UD PRN PRN Reason: Hypoglycemia Diagnostic Test (Pha) (Accu-Chek) 1 each FS [facility] Last Admin: 12/07/19 08:43 Dose: 1 each Documented by: Docusate Sodium (Colace) 100 mg PO BID [facility] Last Admin: 12/07/19 08:58 Dose: 100 mg Documented by: Ferrous Sulfate (Ferrous Sulfate) 650 mg PO [facility] Last Admin: 12/07/19 08:40 Dose: 650 mg Documented by: Furosemide (Lasix) 120 mg PO BID [facility] Last Admin: 12/07/19 08:40 Dose: 120 mg Documented by: Glipizide (Glucotrol) 2.5 mg PO QAM PRN PRN Reason: Blood Sugar - High Last Admin: 12/07/19 08:42 Dose: 2.5 mg Documented by: Glipizide (Glucotrol) 5 mg PO QPM PRN PRN Reason: Blood Sugar - High Glucose (Insta-Glucose) 15 gm PO PRN PRN PRN Reason: Hypoglycemia Heparin Sodium (Porcine) (Heparin) 5,000 unit SQ Q12 [facility] Last Admin: 12/07/19 08:58 Dose: 5,000 unit Documented by: Insulin Human Lispro (Humalog) 0 unit SQ [facility]; Protocol Last Admin: 12/07/19 08:44 Dose: Not Given Documented by: Lorazepam (Ativan) 1 mg PO TIDP PRN PRN Reason: Muscle Spasm Last Admin: 12/06/19 22:43 Dose: 1 mg Documented by: Pantoprazole Sodium (Protonix) 40 mg PO QAMAC [facility] Last Admin: 12/07/19 08:40 Dose: 40 mg Documented by: Prochlorperazine (Compazine) 5 mg IV Q4HP PRN PRN Reason: Nausea And Vomiting Fluticasone/Salmeterol (Advair 250-50 Diskus) 1 puff INH Q12 [facility] Last Admin: 12/07/19 08:58 Dose: Not Given Documented by: Senna (Senokot) 2 tab PO [facility] Last Admin: 12/06/19 23:12 Dose: Not Given Documented by: Sevelamer Carbonate (Renvela) 1,600 mg PO TID [facility] Last Admin: 12/07/19 08:39 Dose: 1,600 mg Documented by: Sodium Chloride (Saline Flush) 10 ml IV Q8 [facility] Last Admin: 12/07/19 06:06 Dose: 10 ml Documented by: Trazodone HCl (Desyrel) 25 mg PO [facility] Last Admin: 12/06/19 23:11 Dose: Not Given Documented by: Medical - PN: A/P - Time Spent With Patient Total time spent is greater than 50% in coordination of care (as documented) at patient's floor/unit and/or counseling patient: - Narrative A/P Narrative: Assessment: 1. Hypercalcemia 2. Hyperphosphatemia 3. ESRD on peritoneal dialysis 4. Chronic anemia due to ESRD 5. 2nd hyperparathyroidism of renal origin 6. DM type 2 7. Hypertensive heart disease 8. COPD 9. Hx of HTN 10. Acute hypoxic respiratory failure Plan: 1. In the ER, diploma pharmacy technician Dr. Gorman was consulted. As per Dr. Gorman, Hold Calcium, Vitamin D and Vitamin C. Increase Cinacalcet to 60 mg twice daily. Increase Sevelamer to 1600 mg three times daily with meals. Check Vitamin D Total (25-Hydroxy) level. CCPD nightly with 1.5%, total time 9 hours. Outpatient endocrinology referral (Jamee or DEANNE) for parathyroid surgery evaluation after discharge. classroom monitor EKG no QRS and T wave change Repeat calcium and phosphor in am 1 LNS was given in the ER lasix 120mg bid 2. ESRD on peritoneal dialysis. Dr. Gorman is on board 3. Repeat H&H in the morning 4. Continue home glipizide 2.5 mg in the morning and 5 mg in the evening insulin sliding scale 5. COPD stable, inhaler 6. Pulse ox. Oxygen 7. DVT prophylaxis: Heparin CODE STATUS: Full Medical - PN: Qual - VTE Deep Vein Thrombosis/Pulmonary Embolism Present on Admission: No
[2019-12-07] MEDS: PROCHLORPERAZINE 10 MG/2 ML VIAL IV PRN ×3 (11:30→21:49)
[2019-12-07] MEDS: SENNOSIDES 1 TABLET PO SCH (21:43)
[2019-12-07] MEDS: ATORVASTATIN 20 MG TABLET PO SCH (22:48)
[2019-12-08] MEDS: traZODone HCL 50 MG TABLET PO SCH (00:28)
[2019-12-08] MEDS: PROCHLORPERAZINE 10 MG/2 ML VIAL IV PRN ×2 (05:27→10:48)
[2019-12-08] MEDS: 0.9 % SODIUM CHLORIDE 10 ML SYRINGE IV SCH (05:27)
[2019-12-08 06:26] LABS: Basophils # (Auto) 0.01 K/mcL (0.00-0.30); Basophils % (Auto) 0.1 % (0.0-2.0); Eosinophils # (Auto) 0.24 K/mcL (0.00-0.70); Eosinophils % (Auto) 2.3 % (0.0-7.0); Granulocytes % (Auto) 66.1 % (38.0-78.0); Hematocrit 31.2 % (34.1-44.9); Hemoglobin 9.7 g/dL (11.2-15.7); Lymphocytes # (Auto) 2.32 K/mcL (1.50-4.80); Lymphocytes % (Auto) 22.3 % (15.5-49.0); Mean Cell Volume 87.2 fL (80.0-100.0); Mean Corpuscular HGB Conc 31.1 g/dL (31.0-36.0); Mean Platelet Volume 9.2 fL (7.4-10.4); Monocytes # (Auto) 0.96 K/mcL (0.10-0.90); Monocytes % (Auto) 9.2 % (1.0-12.0); Platelet Count 294 K/mcL (140-440); RBC 3.58 M/mcL (3.59-5.38); Red Cell Distribution Width 15.1 % (11.5-14.5); WBC 10.4 K/mcL (4.50-11.00)
[2019-12-08 06:49] LABS: ALT/SGPT 8 U/l (0-40); AST/SGOT 17 U/l (0-37); Albumin 2.7 gm/dL (3.2-5.2); Albumin/Globulin Ratio 0.8 (1.0-2.3); Alkaline Phosphatase 75 U/L (39-117); Bilirubin,Total 0.2 mg/dL (0.0-1.0); Blood Urea Nitrogen 27 mg/dl (8-23); Calcium 10.5 mg/dl (8.6-10.4); Carbon Dioxide 28 mmol/L (22-30); Globulin 3.4 gm/dL (2.2-3.7); Glucose 87 mg/dL (70-105); Phosphorous 5.4 mg/dL (2.7-4.5)
[2019-12-08 06:54] LABS: Chloride 91 mmol/L (96-108); Glomerular Filtration Rate 5
--- NOTE | 2019-12-08 06:55 | Nephrology Progress Note ---
Subjective Patient information: Note initiated : 12/08/19 at 6:52 am Patient: Ema Vang 79 y/o F admitted on 12/06/19 for weakness and sy ncope. Chief Complaint: Weakness Pertinent ROS: Weakness Nausea Itching Objective - Vital Signs Vital signs: Vital Signs Temp Pulse Resp BP BP Pulse Ox 12/08/19 05:15 97.8 F 88 14 98/59 93 12/07/19 22:45 97.5 F 88 16 91/55 92 12/07/19 19:55 98.5 F 106/61 12/07/19 19:06 98.5 F 89 12 106/61 94 12/07/19 15:57 97.6 F 16 120/64 96 12/07/19 12:00 97 F 20 102/59 100 12/07/19 08:18 97.4 F 92/46 12/07/19 07:23 97.4 F 20 92/46 94 Intake and Output 12/07/19 12/08/19 12/08/19 21:59 05:59 13:59 Intake Total 380 360 Output Total 75 75 Balance 305 285 Intake: Oral 380 360 Output: Void Amount 75 50 Emesis 25 Other: Meal Dinner Percent of Meal Consumed 25% Feeding Ability Independent Stool Size Small Small Stool Color Black Brown Stool Consistency Dry and Hard Formed # Unmeasured Emesis 1 # Bowel Movements 1 Weight 144 lb 4.8 oz Intake & Output: Intake & Output 12/07/19 12/08/19 12/08/19 21:59 05:59 13:59 Intake Total 380 360 Output Total 75 75 Balance 305 285 Weight 144 lb 4.8 oz Intake: Oral 380 360 Output: Void Amount 75 50 Emesis 25 Other: Meal Dinner Percent of Meal Consumed 25% Feeding Ability Independent Stool Size Small Small Stool Color Black Brown Stool Consistency Dry and Hard Formed # Unmeasured Emesis 1 # Bowel Movements 1 - General Appearance General appearance: chronically ill, fatigue EENT: mucous membranes moist Neck: supple Respiratory: clear Cardiology: no edema Gastrointestinal: no tenderness Integumentary: warm and dry Neurologic: no focal deficit, alert and oriented x3 Musculoskeletal: no deformities Psychiatric: mood/affect appropriate, cooperative - Lab 12/08/19 05:03 12/08/19 05:03 Most recent lab results Calcium 10.5 mg/dl (8.6-10.4) H 12/08/19 05:03 Phosphorus 5.4 mg/dL (2.7-4.5) H 12/08/19 05:03 Magnesium 1.6 mg/dL (1.6-2.5) 12/08/19 05:03 Assessment and Plan (1) ESRD on peritoneal dialysis Ema Vang is a 79-year-old female with end-stage renal disease on chronic peritoneal dialysis (followed by Dr. 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 Her work up in ED was significant for hypercalcemia and hyperphosphatemia. Her symptoms are probably associated with these findings. She already has a work up ordered earlier this weak. Work up: Thyroid US on 11/06/19: Multinodular goiter. No adenoma. Recommend NM scan. Labs on 12/03/19: Free [place]/Lambda ratio: 1.19, Serum SPEP/TREVOR normal; no monoclonal proteins. Labs on 10/29/19: PTH (intact) 609. Treatment: Cinacalcet increased from 90 mg to 180 mg daily (maximum dose) as inpatient. Sevelamer 1600 mg three times daily with meals. Progress: Hypercalcemia associated with hyperparathyroidism, improved. Hyperphosphatemia, improved. Hypokalemia, being replaced. Amlodipine and Furosemide discontinued due to hypotension. Recommendations/Plan: CCPD nightly with 1.5%, total time 9 hours. Recommend Cinacalcet 120 mg daily after discharge. Follow up with Dr. [facility] (no appointment need). Status: Chronic Priority: Medium (2) Hypercalcemia Status: Acute Priority: Medium (3) Hyperphosphatemia Status: Acute Priority: Medium
[2019-12-08] MEDS: PANTOPRAZOLE 40 MG TABLET PO SCH (07:45)
[2019-12-08] MEDS: INSULIN LISPRO 1 UNIT/0.01 ML UNIT SQ SCH ×2 (07:45→12:40)
[2019-12-08] MEDS: SEVELAMER 800 MG TABLET PO SCH (09:18)
[2019-12-08] MEDS: DOCUSATE SODIUM 100 MG CAPSULE PO SCH (09:19)
[2019-12-08] MEDS: FERROUS SULFATE 325 MG TABLET PO SCH (09:20)
[2019-12-08] MEDS: POTASSIUM CHLORIDE 20 MEQ TABLET PO SCH ×2 (09:23→09:27)
[2019-12-08] MEDS: CINACALCET 30 MG TABLET PO SCH (09:24)
[2019-12-08] MEDS: HEPARIN 5,000 UNIT/ML VIAL SQ SCH (09:27)
[2019-12-08] MEDS: FLUTICASONE/SALMETEROL 250/50 INHALER #14 INH SCH (09:27)
--- NOTE | 2019-12-08 13:17 | Discharge Summary ---
Medical - DS: Prov Patient information: Note initiated : 12/08/19 at 1:05 pm Service Date, if different from initiated Date: [] Patient: Ema Vang a 79 y/o F admitted on 12/06/19 for weakness and syncope. Chief Complaint: [] Refer to HP by Lilliam Null M.D.> 12/06/19 Ms. Vang is a 79 year old F with a history of ESRD on chronic peritoneal dialysis (followed by Dr. 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 Patient states that she has been having whole body itching, weakness, and myoclonic jerking movement for 1.5-2 weeks associated with dizziness, nausea, and vomiting. Otherwise she is fine. Denies headache, chest pain, shortness of breath, abdominal pain, dysuria, fever, chills, or palpitation. In the ER, she was found to have hypocalcemia and hypophosphatemia. When I saw this patient in the ER, other than mentioned above, she was fine. She was admitted to the hospital on November 19, 2019 for pneumonia. Denied recent travel or sick contact. Date of admission: 12/06/19 19:41 Discharge date: 12/08/19 Primary care physician: Sky Ceja Consults: 12/06/19 Consult to Physician [CONS] Stat Comment: Consulting Provider: Lilliam Null Reason For Exam: Physician to Consult Consult to Physician [CONS] Stat Comment: Consulting Provider: Kavon Gorman Reason For Exam: Physician to Consult Medical - DS: Meds - Discharge Medications Active and Home Medications: Home Medications Lidocaine 1 patch TOPICAL PRN PRN 07/30/18 [History Confirmed 12/06/19 Last Taken 11/07/18] Fluticasone/Salmeterol [Advair 250-50 Diskus] 1 puff INH Q12 PRN 12/04/18 [History Confirmed 12/06/19 Last Taken 12/03/18 21:00] Cinacalcet HCl [Sensipar] 60 mg PO QAM 12/17/18 [History Confirmed 12/07/19 Last Taken Unknown] Cinacalcet [Sensipar] 30 mg PO QPM 12/17/18 [History Confirmed 12/07/19 Last Taken Unknown] atorvastatin 20 mg tablet 20 mg PO QHS #90 tab 02/20/19 [Rx Confirmed 12/07/19 Last Taken Unknown] gentamicin 0.1 % topical cream 1 applic TOPICAL QDAY #30 g 06/04/19 [Rx Confirmed 11/19/19 Last Taken Unknown] cholecalciferol (vitamin D3) 50 mcg (2,000 unit) capsule 2,000 unit PO QDAY #30 cap 07/02/19 [Rx Confirmed 12/07/19 Last Taken Unknown] LORazepam [Ativan] 1 mg PO TIDP PRN #14 tab 11/10/19 [Rx Confirmed 12/06/19 Last Taken Unknown] Ascorbate Calcium [Vitamin C] 500 mg PO DAILY 11/19/19 [History Confirmed 12/07/19 Last Taken Unknown] Ferrous Sulfate 650 mg PO QDAY 11/19/19 [History Confirmed 12/06/19 Last Taken Unknown] Furosemide [Lasix] 120 mg PO BID 11/19/19 [History Confirmed 12/06/19 Last Taken Unknown] Loperamide [Imodium] 2 mg PO PRN PRN 11/19/19 [History Confirmed 12/07/19 Last Taken Unknown] Ondansetron HCl [Zofran] 4 mg PO QAM PRN 11/19/19 [History Confirmed 12/06/19 Last Taken Unknown] Pantoprazole Sodium 20 mg PO QDAY 11/19/19 [History Confirmed 12/06/19 Last Taken Unknown] Potassium Chloride 40 meq PO DAILY 11/19/19 [History Confirmed 12/06/19 Last Taken Unknown] Sevelamer Carbonate 0.8 g PO TID 11/19/19 [History Confirmed 12/06/19 Last Taken Unknown] glipiZIDE [Glucotrol] 2.5 mg PO QAM PRN 11/19/19 [History Confirmed 12/06/19 Last Taken Unknown] glipiZIDE [Glucotrol] 5 mg PO QPM PRN 11/19/19 [History Confirmed 12/06/19 Last Taken Unknown] traZODone HCL [Desyrel] 25 mg PO HS 11/19/19 [History Confirmed 12/06/19 Last Taken Unknown] Levofloxacin [Levaquin] 500 mg PO Q48 #6 tab 11/23/19 [Rx Confirmed 12/06/19 Last Taken Unknown] Diclofenac Epolamine [Flector] 1 each TD DAILY 12/07/19 [History Confirmed 12/07/19 Last Taken Unknown] Fluconazole [Diflucan] 150 mg PO WEEKLY 12/07/19 [History Confirmed 12/07/19 Last Taken Unknown] Lactobacillus Acidophilus [Acidophilus] 100 mg PO DAILY 12/07/19 [History Confirmed 12/07/19 Last Taken Unknown] Promethazine [Phenergan] 25 mg PO Q6HP PRN 12/07/19 [History Confirmed 12/07/19 Last Taken Unknown] amLODIPine [Norvasc] 5 mg PO DAILY 12/07/19 [History Confirmed 12/07/19 Last Taken Unknown] hydrOXYzine [Atarax] 25 mg PO TIDP PRN 12/07/19 [History Confirmed 12/07/19 Last Taken Unknown] Medical - DS: Hosp Hospital Course: 1. Hypercalcemia, improved 2. Hyperphosphatemia, resolved As per Dr. Gorman, CCPD nightly with 1.5%, total time 9 hours. Cinacalcet 120 mg daily after discharge. Follow up with Dr[facility] (no appointment need). Outpatient endocrinology referral (Jamee or [facility]) for parathyroid surgery evaluation after discharge. EKG no QRS and T wave change Repeat calcium and phosphor in am 1 LNS was given in the ER Continue lasix 120mg bid Repeat electrolytes in 3 days 3. ESRD on peritoneal dialysis f/u with nephrology 4. Chronic anemia due to ESRD 5. 2nd hyperparathyroidism of renal origin f/u with pcp and nephrology 6. DM type 2 Continue home glipizide 2.5 mg in the morning and 5 mg in the evening insulin sliding scale 7. Hypertensive heart disease f/u with pcp and cardiology 8. COPD 9. Hx of HTN 10. Acute hypoxic respiratory failure SpO2 > 93% on RM 11. Epigastric pain. She complained of epigastric pain yesterday. No pain today. Troponin 0.05 and 0[address] elevation or LBBB. She refused to be transfer to another hospital for further workup and treatment. F/u with pcp tomorrow and cardiology within 3 days. She promised me to do so. continue lipitor and added aspirin 12/06 Today she feels better. stronger, less jerking movement. Vital signs are stable. Calcium and phos trending down. Had dialysis last night for 9hrs. 12/07 today she feels fine. Does not have any complaints. Vital signs are relatively stable. She will be discharged to home to f/u with pcp, cardiology, nephrology, Dr. Gonzales and endocrinology. Call pcp for medical issues. Discharge diagnosis: Hypercalcemia, Hyperphosphatemia, and elevation of trop - Time Spent with Patient Total time spent providing and/or coordinating discharge services: Greater than 30 minutes Medical - DS: Exam - Constitutional Vitals: Vital Signs Temp Pulse Resp BP BP Pulse Ox 12/08/19 08:15 97.9 F 84/49 12/08/19 08:00 97.9 F 12 84/49 92 12/08/19 05:15 97.8 F 88 14 98/59 93 12/07/19 22:45 97.5 F 88 16 91/55 92 12/07/19 19:55 98.5 F 106/61 12/07/19 19:06 98.5 F 89 12 106/61 94 12/07/19 15:57 97.6 F 16 120/64 96 Intake and Output 12/07/19 12/08/19 12/08/19 21:59 05:59 13:59 Intake Total 380 360 Output Total 75 75 Balance 305 285 Intake: Oral 380 360 Output: Void Amount 75 50 Emesis 25 Other: Meal Dinner Percent of Meal Consumed 25% Feeding Ability Independent Stool Size Small Small Stool Color Black Brown Stool Consistency Dry and Hard Formed # Unmeasured Emesis 1 # Bowel Movements 1 Weight 65.453 kg - Other Additional findings: General - No acute distress Eyes - PERRLA, EOM intact ENT no rhinorrhea, no noticeable or palpable swelling, no redness or rash around throat or on face Neck supple, no JVD, no thyromegaly Respiratory: Lungs -diminished breathing sounds, no wheezing or crackles. Cardiovascular - RRR no m/r/g, GI - Normal bowel sounds, no distended, soft. Peritoneal dialysis catheter in place without signs of infection. Extremeties - No edema, cyanosis or clubbing Hemo/lymphatic/immune no lymphadenopathy Neurological Alert and oriented x 3, no focal neurological deficits. Psychiatry flat affect Medical - DS: Data Labs on day of discharge: Labs from last 24 hours 12/08/19 12/08/19 12/08/19 10:48 10:03 05:03 WBC RBC Hgb Hct MCV MCH MCHC RDW Plt Count MPV Gran % Lymph % (Auto) [place] % (Auto) Eos % (Auto) Baso % (Auto) Gran # Lymph # (Auto) [place] # (Auto) Eos # (Auto) Baso # (Auto) Sodium Potassium Chloride Carbon Dioxide Anion Gap BUN Creatinine GFR Calculation Glucose Calcium Phosphorus Magnesium Total Bilirubin AST ALT Alkaline Phosphatase Troponin T 0.05 H* TNP 0.05 H* Total Protein Albumin Globulin Albumin/Globulin Ratio 12/08/19 12/08/19 05:03 05:03 WBC 10.4 RBC 3.58 L Hgb 9.7 L Hct 31.2 L MCV 87.2 MCH 27.1 MCHC 31.1 RDW 15.1 H Plt Count 294 MPV 9.2 Gran % 66.1 Lymph % (Auto) 22.3 [place] % (Auto) 9.2 Eos % (Auto) 2.3 Baso % (Auto) 0.1 Gran # 6.89 Lymph # (Auto) 2.32 [place] # (Auto) 0.96 H Eos # (Auto) 0.24 Baso # (Auto) 0.01 Sodium 132 L Potassium 2.9 L* Chloride 91 L Carbon Dioxide 28 Anion Gap 13.0 BUN 27 H Creatinine 7.1 H* GFR Calculation 5 Glucose 87 Calcium 10.5 H Phosphorus 5.4 H Magnesium 1.6 Total Bilirubin 0.2 AST 17 ALT 8 Alkaline Phosphatase 75 Troponin T Total Protein 6.1 Albumin 2.7 L Globulin 3.4 Albumin/Globulin Ratio 0.8 L Medical - DS: A/P - Patient/Caregiver Discharge Instructions Activity: increase activity as tolerated Diet: Renal/Consistent Carbs Prescriptions: Aspirin [Adult Aspirin] 81 mg PO DAILY #30 tablet.dr Transmission Status: Pending to [facility] Cinacalcet [Sensipar] 120 mg PO QPM #100 tab Transmission Status: Pending to [facility] - Follow up Plan Follow up with: Sky Ceja MD [Primary Care Provider] - (See pcp on tomorrow) cardiology [Other] (within 3 days) nephrology [Other] (on tomorrow) Endocrinology [Other] (in one week) Dr. [facility] [Other] (within 3-5 days. ) Disposition: Home, Self-Care Prognosis: Good Rehab Potential: Fair Medical - DS: Qual - VTE Deep Vein Thrombosis/Pulmonary Embolism Present on Admission: No
== END 2019-12-08 15:45 | disposition home or self-care (01) ==
LOC: ICU 14:12 → ED 14:12 → ICU 19:46 → MEDSUR 19:51
PROVIDERS: ADMIT Internal Medicine; ATTEND Internal Medicine

== ENCOUNTER 2019-12-23 08:33 | Inpatient (IN) ==
[2019-12-23 09:04] LABS: POC Blood Urea Nitrogen 42 mg/dl (8-23); POC CO2 25 mmol/L (22-30); POC Calcium, Ionized 1.44 mmol/L (1.16-1.32); POC Chloride 92 mmol/L (96-108); POC Creatinine 9.3 mg/dl (0.6-1.1); POC Glucose, Random 148 mg/dL (70-105); POC Potassium 3.5 mmol/L (3.3-5.1); POC Sodium 129 mmol/L (133-145)
[2019-12-23] MEDS ORDERED: LORazepam 2 MG/ML VIAL IV ONE ×2 (09:09→23:35)
--- NOTE | 2019-12-23 09:19 | Emergency Department Note ---
General Adult HPI - General Chief complaint: Nausea/Vomiting/Diarrhea Stated complaint: nausea/vomiting, syncope Time Seen by Provider: 12/23/19 09:02 Source: patient Mode of arrival: wheelchair Limitations: no limitations - History of Present Illness HPI Narrative: This 79-year old patient presents emergency department chief complaint of vomiting. Patient states vomiting has been going on for days. Patient states exacerbating factors are eating/drinking. Patient states ameliorating factors are antiemetics. Time course is acute/ progressive. Patient's past medical history is significant for home dialysis. Patient has had history of these symp toms in the past. Pt without sick contacts. Associated symptoms do not include distention/hematemesis/feculent vomiting/sick contacts/vertigo. Associated symptoms include nausea/diarrhea/abdominal pain/headache. - Related Data Home Medications Medication Instructions Recorded Confirmed Lidocaine 1 patch TOPICAL PRN PRN 07/30/18 12/06/19 Fluticasone/Salmeterol [Advair 1 puff INH Q12 PRN 12/04/18 12/06/19 250-50 Diskus] Ascorbate Calcium [Vitamin C] 500 mg PO DAILY 11/19/19 12/07/19 Ferrous Sulfate 650 mg PO QDAY 11/19/19 12/06/19 Furosemide [Lasix] 120 mg PO BID 11/19/19 12/06/19 Pantoprazole Sodium 20 mg PO QDAY 11/19/19 12/06/19 Potassium Chloride 40 meq PO DAILY 11/19/19 12/06/19 glipiZIDE [Glucotrol] 2.5 mg PO QAM PRN 11/19/19 12/06/19 glipiZIDE [Glucotrol] 5 mg PO QPM PRN 11/19/19 12/06/19 traZODone HCL [Desyrel] 25 mg PO HS 11/19/19 12/06/19 Fluconazole [Diflucan] 150 mg PO WEEKLY 12/07/19 12/07/19 Lactobacillus Acidophilus 100 mg PO DAILY 12/07/19 12/07/19 [Acidophilus] amLODIPine [Norvasc] 5 mg PO DAILY 12/07/19 12/07/19 Previous Rx's Medication Instructions Recorded atorvastatin 20 mg tablet 20 mg PO QHS #90 tab 02/20/19 gentamicin 0.1 % topical cream 1 applic TOPICAL QDAY #30 g 06/04/19 cholecalciferol (vitamin D3) 50 2,000 unit PO QDAY #30 cap 07/02/19 mcg (2,000 unit) capsule LORazepam [Ativan] 1 mg PO TIDP PRN #14 tab 11/10/19 Accu-Chek 1 each FS ACHS strip 12/08/19 Aspirin [Adult Aspirin] 81 mg PO DAILY #30 tablet. 12/08/19 Cinacalcet [Sensipar] 120 mg PO QPM #100 tab 12/08/19 sevelamer HCl 800 mg tablet 1,600 mg PO TID #180 tab 12/16/19 Allergies Allergy/AdvReac Type Severity Reaction Status Date / Time Penicillins Allergy Mild Hives Verified 12/23/19 08:37 ciprofloxacin [From Cipro] AdvReac Mild "Intoleranc Verified 12/23/19 08:37 e codeine AdvReac Mild Vomiting Verified 12/23/19 08:37 hydrocodone AdvReac Mild Vomiting Verified 12/23/19 08:37 tramadol AdvReac Mild Itching Verified 12/23/19 08:37 Review of Systems All systems ED: reviewed and negative except as stated. Past Medical History - Past Medical History PMF Narrative: All Active Problems (Last Updated 11/28/19 @ 10:20 by Nancy Gonzales MD) Hypercalcemia (Acute) Hyperphosphatemia (Acute) Anemia due to end stage renal disease (Chronic) Secondary hyperparathyroidism of renal origin (Chronic) Hypomagnesemia (Acute) Acute blood loss anemia (Acute) Clostridium difficile infection (Acute) Hypokalemia (Acute) Metabolic acidosis (Acute) Muscle spasm (Acute) Pneumonia (Acute) ESRD (end stage renal disease) (Chronic) Iron deficiency anemia (Acute) Abdominal pain (Acute) Urinary retention (Acute) ESRD on peritoneal dialysis (Chronic) Diarrhea (Chronic) Vomiting alone (Chronic) Hypertensive renal disease (Chronic) Proteinuria (Chronic) Edema (Chronic) Secondary hyperparathyroidism of renal origin (Chronic) Diabetes mellitus (Chronic) Hx of hysterectomy (Acute) Hx of esophagogastroduodenoscopy (Acute) Vitamin D deficiency (Acute) Sinusitis, chronic (Acute) Seborrheic keratosis (Acute) Overweight (Acute) Osteoporosis (Acute) Obesity (Acute) Insomnia (Chronic) Hypertensive heart disease, benign w/chronic kidney disease stage 1-4 (Acute) Hyperlipidemia (Acute) Hypertension (Acute) Gastroesophageal reflux (Acute) Diabetes mellitus, type II (Acute) Depression (Acute) COPD (chronic obstructive pulmonary disease) (Acute) Anxiety (Acute) Medical history: Reports: cancer, hypertension, other (Type 2 diabetes, Hypertension, coronary artery disease, Hyperlipidemia, COPD, kidney disease, chronic anemia due to kidney disease, hyperparathyroidism of renal origin) Surgical history ED: Reports: non-contributory - Social History smoking status: Former smoker Alcohol use: Reports: None Physical Exam General: Alert, interactive, appropriate Head: Atraumatic, normocephalic Eyes: Extraocular movements intact, sclera anicteric, no conjunctival injection Ears: Pinnae normal, no discharge Nares: No nasal discharge, patent bilaterally Neck: Trachea midline, full range of motion Chest: Symmetrical chest wall rise, breathing normally; nonlabored respirations Cardiovascular: Patient with excellent perfusion to the extremities; without tachycardia/bradycardia Extremities: Full range of motion joints, no obvious deformities Neuro: Alert, oriented x3, cranial nerves II through XII grossly intact, patient without lateralizing findings such as weakness, or abnormal reflexes Psychiatric: Normal affect, normal mood Limitations: no limitations Course Vital Signs Temperature 97.6 F 12/23/19 08:34 Pulse Rate 109 H 12/23/19 08:34 Respiratory Rate 20 12/23/19 08:34 Blood Pressure 103/62 12/23/19 08:34 Pulse Oximetry (%) 92 12/23/19 08:34 Temperature 97.6 F 12/23/19 08:34 Pulse Rate 101 H 12/23/19 14:56 Respiratory Rate 20 12/23/19 17:03 Blood Pressure 78/58 12/23/19 17:01 Pulse Oximetry (%) 95 12/23/19 14:56 Medical Decision Making - [facility] Narrative Medical decision making narrative: This 79-year-old patient presents the emergency department chief complaint of vomiting. Differential diagnosis for this issue includes acute gastroenteritis, gastroparesis, GERD, cyclical vomiting syndrome, cannabinoid hyperemesis syndrome, pancreatitis, hepatitis, other rare causes could include intestinal pseudoobstruction, gastric outlet obstruction, bowel obstruction, and self- induced/eating disorders. Patient is treated in this case with supportive therapy primarily antiemetics and fluids. She has a history of HTN, DM, ESRD on PD with recent episode of peritonitis status post treatment on antibiotics. Patient usually follows up with nephrology [facility]. Presents today with worsening confusion, progressive abdominal pain associated nausea vomiting inability to eat or drink, with intractable vomiting at home. Is confused in the emergency department for myself as well as when she is was evaluated by Dr. Luong. I did consult with Dr. Pinto and he will consult on the case. In my medical opinion patient most reasonably should be managed as an inpatient for ongoing care. Peritoneal dialysis nurse did come to the emergency department for evaluating the patient and placed fluids. - Lab Data Result diagrams: 12/23/19 08:51 12/23/19 08:51 Lab Results 12/23/19 12/23/19 12/23/19 Range/Units 08:51 08:51 12:56 WBC 12.7 H (4.50-11.00) K/mcL RBC 4.08 (3.59-5.38) M/mcL Hgb 11.4 (11.2-15.7) g/dL Hct 35.4 (34.1-44.9) % POC Hct 36.0 (36.0-48.0) % MCV 86.8 (80.0-100.0) fL MCH 27.9 (26.0-34.0) pg MCHC 32.2 (31.0-36.0) g/dL RDW 14.7 H (11.5-14.5) % Plt Count 283 (140-440) K/mcL MPV 9.2 (7.4-10.4) fL Gran % 73.0 (38.0-78.0) % Lymph % (Auto) 17.9 (15.5-49.0) % [place] % (Auto) 8.3 (1.0-12.0) % Eos % (Auto) 0.6 (0.0-7.0) % Baso % (Auto) 0.2 (0.0-2.0) % Gran # 9.29 H (1.80-8.00) K/mcL Lymph # (Auto) 2.28 (1.50-4.80) K/mcL [place] # (Auto) 1.05 H (0.10-0.90) K/mcL Eos # (Auto) 0.07 (0.00-0.70) K/mcL Baso # (Auto) 0.02 (0.00-0.30) K/mcL POC Sodium 129 L (133-145) mmol/L Sodium 129 L (133-145) mmol/L POC Potassium 3.5 (3.3-5.1) mmol/L Potassium 3.6 (3.3-5.1) mmol/L POC Chloride 92 L (96-108) mmol/L Chloride 87 L (96-108) mmol/L Carbon Dioxide 24 (22-30) mmol/L POC Total CO2 25 (22-30) mmol/L Anion Gap 18.0 H (8-16) POC BUN 42 H (8-23) mg/dl BUN 49 H (8-23) mg/dl Creatinine 7.4 H* (0.6-1.1) mg/dl POC Creatinine 9.3 H* (0.6-1.1) mg/dl GFR Calculation 5 Glucose 149 H (70-105) mg/dL POC Glucose 148 H (70-105) mg/dL Calcium 11.7 H (8.6-10.4) mg/dl POC WB Ioniz Calcium 1.44 H (1.16-1.32) mmol/L Total Bilirubin 0.2 (0.0-1.0) mg/dL AST 21 (0-37) U/l ALT 17 (0-40) U/l Alkaline Phosphatase 110 (39-117) U/L Total Protein 6.5 (5.9-8.4) gm/dL Albumin 3.4 (3.2-5.2) gm/dL Globulin 3.1 (2.2-3.7) gm/dL Albumin/Globulin Ratio 1.1 (1.0-2.3) Urine Color Adriana Urine Appearance Cloudy Urine pH 5.0 (5.0-9.0) Ur Specific [place] 1.019 (1.000-1.035) Urine Protein 100 A (NEG) mg/dL Urine Glucose (UA) Negative (NEG) mg/dL Urine Ketones Neg (NEG) mg/dL Urine Occult Blood 0.03 A (<0.03) mg/dL Urine Nitrate Neg (NEG) Urine Bilirubin Neg (NEG) mg/dL Urine Ictotest Neg (NEG) Urine Urobilinogen Neg (NEG) mg/dL Ur Leukocyte Esterase 250 A (NEG) /uL Urine RBC 61 H (0-1) /hpf Urine WBC > 182 H (0-4) /hpf Ur Squamous Epith Cells > 182 H (0-4) /hpf Ur Transition Epith Cell 1 (0-2) /hpf Urine Bacteria 0 (0) /hpf Urine Yeast (Budding) Many A (0) /hpf Ur Culture Indicated? No Disposition Pt seen by [facility]PER[facility]OR/PA only: No Clinical Impression: Nausea & vomiting Qualifiers: Vomiting type: unspecified Vomiting Intractability: non-intractable Qualified Code(s): R11.2 - Nausea with vomiting, unspecified Disposition: Xfer As Inpt ([facility]) Condition: Fair Referrals: Sky Ceja MD [Primary Care Provider] -
[2019-12-23] MEDS ORDERED: ONDANSETRON 4 MG/2 ML VIAL IV ONE (09:21)
[2019-12-23 09:29] LABS: Basophils # (Auto) 0.02 K/mcL (0.00-0.30); Basophils % (Auto) 0.2 % (0.0-2.0); Eosinophils # (Auto) 0.07 K/mcL (0.00-0.70); Eosinophils % (Auto) 0.6 % (0.0-7.0); Hematocrit 35.4 % (34.1-44.9); Hemoglobin 11.4 g/dL (11.2-15.7); Lymphocytes # (Auto) 2.28 K/mcL (1.50-4.80); Lymphocytes % (Auto) 17.9 % (15.5-49.0); Mean Cell Volume 86.8 fL (80.0-100.0); Mean Corpuscular HGB Conc 32.2 g/dL (31.0-36.0); Mean Platelet Volume 9.2 fL (7.4-10.4); Monocytes # (Auto) 1.05 K/mcL (0.10-0.90); Monocytes % (Auto) 8.3 % (1.0-12.0); Platelet Count 283 K/mcL (140-440); RBC 4.08 M/mcL (3.59-5.38); Red Cell Distribution Width 14.7 % (11.5-14.5); WBC 12.7 K/mcL (4.50-11.00)
[2019-12-23 09:49] LABS: ALT/SGPT 17 U/l (0-40); AST/SGOT 21 U/l (0-37); Albumin 3.4 gm/dL (3.2-5.2); Albumin/Globulin Ratio 1.1 (1.0-2.3); Alkaline Phosphatase 110 U/L (39-117); Bilirubin,Total 0.2 mg/dL (0.0-1.0); Blood Urea Nitrogen 49 mg/dl (8-23); Calcium 11.7 mg/dl (8.6-10.4); Carbon Dioxide 24 mmol/L (22-30); Globulin 3.1 gm/dL (2.2-3.7); Glucose 149 mg/dL (70-105)
[2019-12-23 09:55] LABS: Chloride 87 mmol/L (96-108); Glomerular Filtration Rate 5
[2019-12-23] MEDS ORDERED: 0.9 % SODIUM CHLORIDE 500 ML IV ONE (10:37)
[2019-12-23 14:39] LABS: Appearance,Urine CLOUDY; Bacteria,Urine 0 /hpf (0); Bilirubin,Urine NEG (NEG); Color,Urine AMBER; Culture Indicated,Urine NO; Glucose,Urine (UA) NEGATIVE (NEG); Ketones,Urine NEG (NEG); Leukocyte Esterase,Urine 250 /uL (NEG); Nitrate,Urine NEG (NEG); Protein,Urine 100 mg/dL (NEG); Specific Gravity,Urine 1.019 (1.000-1.035); Urine Blood 0.03 mg/dL (<0.03); Urine Budding Yeast MANY /hpf (0); Urine RBC 61 /hpf (0-1); Urine Squamous Epithelial Cell > 182 /hpf (0-4); Urine Transitional Epi Cells 1 /hpf (0-2); Urine WBC > 182 /hpf (0-4); Urobilinogen,Urine NEG (NEG)
[2019-12-23 14:40] LABS: Ictotest,Urine NEG (NEG)
--- NOTE | 2019-12-23 17:25 | Internal Med History&Physical ---
Medical - H&P: [facility] Patient information: Note initiated : 12/23/19 at 5:22 pm Service Date, if different from initiated Date: [] Patient: Ema Vang a 79 y/o F admitted on for Nausea/Vomiting, Syncope. Chief Complaint: [] Chief complaint: Nausea vomiting abdominal pain confusion History of present illness: Ms. Vang is a 79 year old F with a history of HTN, DM, ESRD on PD with recent episode of peritonitis status post treatment on antibiotics. Patient usually follows up with nephrology [facility]. She presents to the ER today with worsening confusion, progressive abdominal pain associated nausea vomiting inability to eat or drink that has progressed over the last few days. Symptoms associated with loss of appetite/recurrent retching with every attempt to eat or drink. She feels very dehydrated dizzy Initial work-up in the ER was consistent with urinary tract infection/acute change in mental status /white count 12.7 and elevated calcium at 11.7. Nephrology was consulted and requested admission. Subsequently hospital service consulted At the time evaluation patient is fatigued lethargic and unable to provide a detailed history. She was able to provide answers to most of the review of systems. She denies fever but endorses to loss of appetite/abdominal discomfort generalized exacerbated with stools of vomiting. Denies chest pain, diaphoresis, sick contacts or fever chills. She further denies diarrhea or bloody stool Review of systems A 10 point review system was performed and is negative except for what discussed above Medical - H&P: PMH Medical history: Abdominal pain (Acute) Urinary retention (Acute) Hypertensive renal disease (Chronic) Proteinuria (Chronic) Edema (Chronic) Secondary hyperparathyroidism of renal origin (Chronic) Diabetes mellitus (Chronic) Chronic kidney disease, stage V (Chronic) Vitamin D deficiency (Acute) Sinusitis, chronic (Acute) Seborrheic keratosis (Acute) Renal osteodystrophy (Acute) Overweight (Acute) Osteoporosis (Acute) Obesity (Acute) Insomnia (Chronic) Hyposmolality and/or hyponatremia (Acute) Disorder of magnesium metabolism (Acute) Hypertensive heart disease, benign w/chronic kidney disease stage 1-4 (Acute) Hyperparathyroidism, primary (Acute) Hyperparathyroidism (Acute) Hyperlipidemia (Acute) Hyperkalemia (Acute) Hypercalcemia (Acute) Hypertension (Acute) Gastroesophageal reflux (Acute) Diabetes mellitus, type II (Acute) Depression (Acute) COPD (chronic obstructive pulmonary disease) (Acute) Chronic kidney disease, stage IV (severe) (Acute) Anxiety (Acute) Anemia, iron deficiency (Acute) 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) Acute renal disease (Acute) Past Surgical History Hx of hysterectomy (Acute) Hx of esophagogastroduodenoscopy (Acute) Low back surgery Family History mother Rheumatoid arthritis Malignant neoplasm of colon brother Diabetes mellitus Morbid obesity sister x2 Diabetes mellitus sister Parkinson's Disease Pneumonia, Onset Age: 59 Sister Renal failure Social History Quit smoking 10 years ago denies alcohol use does not use a cane or walker lives at home with her Medical - H&P: Meds Home Medications Medication Instructions Recorded Confirmed Type Lidocaine 1 patch TOPICAL PRN PRN 07/30/18 12/06/19 History atorvastatin 20 mg tablet 20 mg PO QHS #90 tab 02/20/19 12/24/19 Rx cholecalciferol (vitamin D3) 50 2,000 unit PO QDAY #30 cap 07/02/19 12/24/19 Rx mcg (2,000 unit) capsule LORazepam [Ativan] 1 mg PO TIDP PRN #14 tab 11/10/19 12/06/19 Rx Furosemide [Lasix] 120 mg PO BID 11/19/19 12/24/19 History Pantoprazole Sodium 20 mg PO QDAY 11/19/19 12/24/19 History Potassium Chloride 40 meq PO DAILY 11/19/19 12/24/19 History glipiZIDE [Glucotrol] 2.5 mg PO QAM PRN 11/19/19 12/06/19 History glipiZIDE [Glucotrol] 5 mg PO QPM PRN 11/19/19 12/23/19 History traZODone HCL [Desyrel] 25 mg PO HS 11/19/19 12/24/19 History Lactobacillus Acidophilus 100 mg PO DAILY 12/07/19 12/07/19 History [Acidophilus] Accu-Chek 1 each FS ACHS strip 12/08/19 12/24/19 Rx Ferrous Fumarate 650 mg PO DAILY 12/23/19 12/24/19 History Ascorbic Acid [Vitamin C] 500 mg PO DAILY 12/24/19 12/24/19 History Cinacalcet [Sensipar] 60 mg PO BID 12/24/19 12/24/19 History Fluticasone/Salmeterol [Advair Hfa 1 - 2 puff INH Q12HP PRN 12/24/19 12/24/19 History 230-21 Mcg Inhaler] Sevelamer HCl 1,600 mg PO TIDAC 12/24/19 12/24/19 History Allergies Allergy/AdvReac Type Severity Reaction Status Date / Time Penicillins Allergy Mild Hives Verified 12/23/19 08:37 ciprofloxacin [From Cipro] AdvReac Mild "Intoleranc Verified 12/23/19 08:37 e codeine AdvReac Mild Vomiting Verified 12/23/19 08:37 hydrocodone AdvReac Mild Vomiting Verified 12/23/19 08:37 tramadol AdvReac Mild Itching Verified 12/23/19 08:37 Medical - H&P: Exam - Constitutional Vitals: Temp Pulse Resp BP Pulse Ox 97.6 F 101 H 20 78/58 95 12/23/19 08:34 12/23/19 14:56 12/23/19 17:03 12/23/19 17:01 12/23/19 14:56 Exam: Head normocephalic Confused and drowsy Oral cavity dry No ear or nose discharge Neck no lymphadenopathy S1 and S2 tachycardia occasionally irregular bundle branch Chest non-labored breathing Skin no suspicious lesion Dimension nondistended but tender to deep palpation, peritoneal dialysis catheter lower abdomen No lymphedema, cyanosis no joint swelling Psych response to commands but intermittently confused Neuro fatigue lethargic but responding to commands in all 4 extremities Medical - H&P: Reslt - Labs CBC & Chem 7: 12/24/19 05:20 12/24/19 05:20 Labs: Short CBC 12/23/19 Range/Units 08:51 WBC 12.7 H (4.50-11.00) K/mcL Hgb 11.4 (11.2-15.7) g/dL Hct 35.4 (34.1-44.9) % Plt Count 283 (140-440) K/mcL BMP 12/23/19 08:51 Sodium 129 L Potassium 3.6 Chloride 87 L Carbon Dioxide 24 BUN 49 H Creatinine 7.4 H* Glucose 149 H Calcium 11.7 H Liver Function 12/23/19 Range/Units 08:51 Total Bilirubin 0.2 (0.0-1.0) mg/dL AST 21 (0-37) U/l ALT 17 (0-40) U/l Alkaline Phosphatase 110 (39-117) U/L Albumin 3.4 (3.2-5.2) gm/dL Urine 12/23/19 Range/Units 12:56 Urine Color Adriana Urine Appearance Cloudy Urine pH 5.0 (5.0-9.0) Ur Specific [place] 1.019 (1.000-1.035) Urine Protein 100 A (NEG) mg/dL Urine Glucose (UA) Negative (NEG) mg/dL Medical - H&P: A/P (1) Nausea & vomiting Current visit: Yes Status: Acute * Nausea and vomiting with abdominal pain-abdominal CT rule out bowel obstruction, peritoneal fluid cultures/Gram stain and cell counts to rule out peritonitis * Acute change in mental status secondary to combination of UTI/volume depletion * Hypercalcemia calcium 11.4. Nephrology consulted. Likely second to volume depletion * Hypovolemic hyponatremia-continue management per nephrology * Recurrent spasms/myoclonic jerks. MRI brain for further evaluation * ESRD on PD nephrology consulted * Complicated UTI-initiate antibiotic coverage * History of COPD-continue home bronchodilators * Hyperlipidemia -Continue statin * DM type II continue basal prandial insulin/CC diet * GERD continue PPI * Hypertension home dose amlodipine * Full code * Prophylax Heparin Plan * Inpatient admission * Nephrology consult * Antibiotic coverage * CT abdomen * MRI brain * Peritoneal fluid evaluation * Pre-existing medical condition management as above * PT OT nutrition support
--- NOTE | 2019-12-23 18:52 | Nephrology Consult Note ---
History of Present Illness - Reason for Consult Patient information: Note initiated : 12/23/19 at 6:50 pm Service Date, if different from initiated Date: [] Patient: Ema Vang 79 y/o F admitted on for Nausea/Vomiting, Syncope. Chief Complaint: [] Consult date: 12/23/19 end stage renal disease Requesting physician: Dalton Buck - Chief Complaint Weak, N&V, can no longer do PD at home - History of Present Illness 79 yr old female on PD followed by Dr Li Gonzales. I reviewed her PMx a month ago when see was admitted with LLL infiltrate/consolidation, fever and leukocytosis and what I believwed was a pneumonia based on the report of clear peritoneal fluid at the referring hospital. Subsequently she had a mild leukocytosis with predominently neutrophils and was treated with levaquin and vancomycin as a culture negative preitonitis or a CAP with a "sympathetic peritonitis. In either case, she b ecame afebrile and discharged to home. Ms Vang has multiple medical issues including Hx of HTN, DM type 2, CKD , dyslipidemia who RTC for follow up of her CKD She has CKD V with nephrotic range proteinuria. 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 She had been followed by Dr. Russ and following her departure Dr. Gonzales has ass umed care of the patient in terms of her dialysis. 2019 was a year full of complications for this patient as I believe she had esophageal obstruction, enterocolitis and C. difficile colitis. The end result of all this was that her peritoneal membrane has become a sieve in terms of functioning to prevent large amounts of albumin losses into the peritoneal fluid. This is aggravated her hypo-albuminemia, caused hypocalcemia, which in turn is aggravated her secondary hyperparathyroidism, and she is now chronically hypokalemic. At one time she had hypertension and was on blood pressure medications but these of long since been discontinued. Thus it seems likely this patient runs on the dry side and certainly not hypervolemic. She now is best described and failure to thrive and cannot be maintained on home therapy. This is best described by the social workers note as outline below: 12/23/19 11:31 - Case Management Note by Nichole Gilmore Num: [id number] : 1940 Patient Age: 79 Spouse came to see this plier worker. He is exhausted and states he cannot care for patient. She falls a great deal. He states it is like an "epileptic seizure". Patient having incontinent episodes. Patient cannot stand up without assistance now. Mostly he is concerned as patient is unable to keep her medications down nor food. Perpetual nausea. Patient was admitted inpatient in November and again in obs in November. Offered Swingbed last month and she declined. However spouse states her weakness is such he cannot care for her and manage her PD. Initialized on 12/23/19 11:31 - END OF NOTE As such her options are as follows: 1. senior care placement and conversion to HD for rest of her life - less than 6 months given her current condition 2. Home with hospice. 3. NHP with hospice. 4. Home to continue PD Laboratory Tests 11/21/19 12/23/19 04:21 08:51 Sodium 129 L Potassium 3.6 Chloride 87 L Carbon Dioxide 24 Anion Gap 18.0 H BUN 49 H Creatinine 7.4 H* Glucose 149 H Calcium 11.7 H Total Bilirubin 0.2 AST 21 ALT 17 Alkaline Phosphatase 110 Total Protein 6.5 Albumin 3.4 Globulin 3.1 Albumin/Globulin Ratio 1.1 TSH 1.20 Follow up peritoeal fluid studies 11/19/19 11/22/19 14:30 09:15 Peritoneal Source Peritoneal Peritoneal Color P. yellow Peritoneal Appearance Clear Peritoneal RBC < [id number] 100 Periton Nuc Cells 209 Periton Neutrophils 6 Periton Lymphocytes 58 Peritoneal Monocytes 13 Peritoneal Eosinophils 1 Peritoneal Basophils Not Reportable Periton Mesothelial 1 Periton Macrophages 21 Peritoneal Plasma Cell Not Reportable Peritoneal Other Cells Not Reportable Peritoneal Diff Commnt Not Reportable Peritoneal Tot Protein 0.4 Laboratory Tests 10/29/19 12:25 PTH Intact 609.3 H The first order of business is to see what is causing the marked hypercalcemia D/Dx Includes severe volume contraction, secondary or tertiary hyperparathyroidism, milk alkalie syndrome, or a malignancy. The decision to continue dialysis will depend heavily on whether a mitotic process is going on but in my mind with her hemodynamic status would make hemodialysis nearly im possible. She has such profound failure to thrive and weakness, I feel this is little to be gained with continued RRR. Once this bridge is crossed, if she chooses HD, she will need NHP and a cuffed HD catheter placed at [facility] by interventional radiology as an outpatient on the way [facility] the [facility]. Evaluation off N&V must include not only addressing dehydration, hyperparathyroidism but an malignancy screen with CT Chest, ABD and pelvis with and without IV contrast, biomarkers of malignancy and SPEP/IF, and PTH-related peptide. Review of any prior mammograms, etc. Upon further discussion with the patient, she seems to have unrealistic she is never going to feel she goals of her life on dialysis. Once you start a downward decline, it is progressive and she seems shocked that her is overwhealmed. She reports she sets up her machine at home but this conflicts with her husbands report. I explained the likelihood that is she does not turn around quickly, as an example she is just over medicated and dehydrated, that she is on a downward trajectory that we will not be able to stop. In discussing resuscitation efforts, she wishes full code status unless"brain ". I explained that does not help narrow the scop of care and she she will be a full code. 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 difficile colitis Electrolyte abnormalities Hypoalbuminemia due to decreased protein intake and excess protein losses from peritoneal dialysis Anemia of chronic kidney disease Secondary hyperparathyroidism Past surgical history: Peritoneal dialysis catheter placement in 2014 Surgical resection of transitional cell CA of the trigone 2019 Other surgical procedures as found in the admitting physicians note Past family history: Nothing to add to the admitting physician's note which was reviewed Past social history: Non-smoker nondrinker Denies illicit drug use Medications and Allergies Home Medications Medication Instructions Recorded Confirmed Type Lidocaine 1 patch TOPICAL PRN PRN 07/30/18 12/06/19 History atorvastatin 20 mg tablet 20 mg PO QHS #90 tab 02/20/19 12/23/19 Rx cholecalciferol (vitamin D3) 50 2,000 unit PO QDAY #30 cap 07/02/19 12/23/19 Rx mcg (2,000 unit) capsule LORazepam [Ativan] 1 mg PO TIDP PRN #14 tab 11/10/19 12/06/19 Rx Ascorbate Calcium [Vitamin C] 500 mg PO DAILY 11/19/19 12/07/19 History Furosemide [Lasix] 120 mg PO BID 11/19/19 12/23/19 History Pantoprazole Sodium 20 mg PO QDAY 11/19/19 12/23/19 History Potassium Chloride 40 meq PO DAILY 11/19/19 12/06/19 History glipiZIDE [Glucotrol] 2.5 mg PO QAM PRN 11/19/19 12/06/19 History glipiZIDE [Glucotrol] 5 mg PO QPM PRN 11/19/19 12/23/19 History traZODone HCL [Desyrel] 25 mg PO HS 11/19/19 12/23/19 History Lactobacillus Acidophilus 100 mg PO DAILY 12/07/19 12/07/19 History [Acidophilus] amLODIPine [Norvasc] 5 mg PO DAILY 12/07/19 12/23/19 History Accu-Chek 1 each FS ACHS strip 12/08/19 12/23/19 Rx Aspirin [Adult Aspirin] 81 mg PO DAILY #30 tablet. 12/08/19 12/23/19 Rx Cinacalcet [Sensipar] 120 mg PO QPM #100 tab 12/08/19 12/23/19 Rx sevelamer HCl 800 mg tablet 1,600 mg PO TID #180 tab 12/16/19 Rx Ferrous Fumarate 650 mg PO DAILY 12/23/19 12/23/19 History Allergies Allergy/AdvReac Type Severity Reaction Status Date / Time Penicillins Allergy Mild Hives Verified 12/23/19 08:37 ciprofloxacin [From Cipro] AdvReac Mild "Intoleranc Verified 12/23/19 08:37 e codeine AdvReac Mild Vomiting Verified 12/23/19 08:37 hydrocodone AdvReac Mild Vomiting Verified 12/23/19 08:37 tramadol AdvReac Mild Itching Verified 12/23/19 08:37 Exam - Vital Signs Vital signs: Temp Pulse Resp BP Pulse Ox 36.4 C 101 H 20 78/58 95 12/23/19 08:34 12/23/19 14:56 12/23/19 17:03 12/23/19 17:01 12/23/19 14:56 - General Appearance General appearance: appears started age, chronically ill Exam Narrative: NAD EENT: ATNC, PERRL, mucous membranes dry Neck: no JVD, no carotid bruit, supple Respiratory: no kyphosis Cardiology: no murmurs, no rub, no gallops, no edema Gastrointestinal: no tenderness, no guarding, abdominal bruit Integumentary: no rash, warm and dry Neurologic: no focal deficit (strength 4/5 bilaterally), no asterixis Musculoskeletal: no deformities, no cyanosis Results - Lab Results 12/23/19 08:51 12/23/19 08:51 Most recent lab results Calcium 11.7 mg/dl (8.6-10.4) H 12/23/19 08:51 Assessment and Plan (1) Hypotension, unspecified Suspect dehydration when one combines hemoconcentration (rising HgB w/o transfusion), Increase in albumin, hypercalcemia. Doubt sepsis. -Hydrate with NS -Minimal fluid removal with CCPD -W/U nausea and vomiting -Reglan IV for N/V given DM -[place] culture and emperic ABx for 24-72 hours Status: Acute Priority: High (2) ESRD on peritoneal dialysis CCPD orders written Status: Chronic Priority: Medium (3) Nausea & vomiting D/Dx include hypercalcemia, diabetic gastroparesis, dialysis related amyloid, hypoadrenal state, mitotic process, HPT, and diabetic gastroparesis - CT Abd/pelvis - Tumor markers - Diagnose and correct Ca level - Reduce PTHi to ~300 - Outpatient Nuclear gastric emptying study if appropriate - May need GI biopsy (rectal biopsy) to r/o amyloid of GI tract Status: Acute Qualifiers: Vomiting type: unspecified Vomiting Intractability: non-intractable Qualified Code(s): R11.2 - Nausea with vomiting, unspecified (4) Failure to thrive in adult Polyfactorial but has been on PD ~ 5 years which is greater than average for this age group with DM. Of course HPT, a mitotic process and all her comorbidities and illness in the past year may justr be taking their toll. -Plan depends upon w/u and if any improvement occurs. - In a brief discussion, not only is hospice out of the question but she expects to make a full recovery after being fospitalized for months over the pa st 1i8 months. Status: Acute
[2019-12-23] MEDS ORDERED: ACETAMINOPHEN 325 MG TABLET PO PRN (19:33)
[2019-12-23] MEDS ORDERED: ACETAMINOPHEN 650 MG/65 ML BOTTLE IV PRN (19:33)
[2019-12-23] MEDS ORDERED: 0.9 % SODIUM CHLORIDE 1,000 ML IV SCH ×2 (19:33→22:00)
[2019-12-23] MEDS ORDERED: DEXTROSE 50% 50 ML VIAL IV PRN (19:33)
[2019-12-23] MEDS ORDERED: DEXTROSE 31 GM ORAL.SUSP PO PRN (19:33)
[2019-12-23] MEDS ORDERED: ONDANSETRON 4 MG/2 ML VIAL IV PRN (19:33)
[2019-12-23] MEDS ORDERED: MELATONIN 3 MG TABLET PO PRN (19:33)
[2019-12-23] MEDS ORDERED: ONDANSETRON 4 MG ODT TABLET SL PRN (19:33)
[2019-12-23] MEDS ORDERED: BISACODYL 10 MG SUPP.RECT PR PRN (19:33)
[2019-12-23] MEDS ORDERED: POLYETHYLENE GLYCOL 3350 17 GM PACKET PO PRN (19:33)
[2019-12-23] MEDS: 0.9 % SODIUM CHLORIDE 10 ML SYRINGE IV SCH (22:00)
[2019-12-23] MEDS: METOCLOPRAMIDE 10 MG/2 ML VIAL IV PRN (22:41)
[2019-12-23] MEDS: HEPARIN 5,000 UNIT/ML VIAL SQ SCH (22:41)
[2019-12-23] MEDS: DOCUSATE SODIUM 100 MG CAPSULE PO SCH (22:41)
[2019-12-23] MEDS: SENNOSIDES/DOCUSATE SODIUM 1 TAB TABLET PO SCH (22:41)
[2019-12-23] MEDS ORDERED: METOCLOPRAMIDE 10 MG/2 ML VIAL ONE (22:42)
[2019-12-23] MEDS: INSULIN LISPRO 1 UNIT/0.01 ML UNIT SQ SCH (22:44)
[2019-12-23 23:14] LABS: Neutrophils,Peritoneal Fluid 100 %
[2019-12-23 23:16] LABS: Nucleated Cel,Peritoneal Fluid 12 /cumm; RBC,Peritoneal Fluid < 50000 /cumm
[2019-12-23] MEDS ORDERED: LORazepam 2 MG/ML VIAL ONE (23:40)
[2019-12-24 06:45] LABS: Hematocrit 34.1 % (34.1-44.9); Hemoglobin 10.9 g/dL (11.2-15.7); Mean Cell Volume 86.1 fL (80.0-100.0); Mean Platelet Volume 9.4 fL (7.4-10.4); Platelet Count 266 K/mcL (140-440); RBC 3.96 M/mcL (3.59-5.38); Red Cell Distribution Width 14.7 % (11.5-14.5); WBC 12.9 K/mcL (4.50-11.00)
[2019-12-24 07:10] LABS: HCG,Serum NEGATIVE <10 (<10 mIU/ml); Total Protein PEP 5.2 gm/dL (5.9-8.4)
[2019-12-24 07:17] LABS: ALT/SGPT 18 U/l (0-40); AST/SGOT 25 U/l (0-37); Albumin 3.1 gm/dL (3.2-5.2); Albumin/Globulin Ratio 1.1 (1.0-2.3); Alkaline Phosphatase 103 U/L (39-117); Bilirubin,Direct < 0.2 mg/dL (0.0-0.3); Bilirubin,Total 0.3 mg/dL (0.0-1.0); Blood Urea Nitrogen 45 mg/dl (8-23); Calcium 11.3 mg/dl (8.6-10.4); Carbon Dioxide 23 mmol/L (22-30); Globulin 2.8 gm/dL (2.2-3.7); Glucose 87 mg/dL (70-105); Lactate Dehydrogenase 168 U/L (94-250); Phosphorous 4.6 mg/dL (2.7-4.5); Triglycerides 201 mg/dl (<150); Uric Acid 5.4 mg/dL (2.5-8.0)
[2019-12-24 07:25] LABS: Cancer Antigen 19-9 23.8 U/mL (0.0-35.0)
[2019-12-24 07:28] LABS: Chloride 94 mmol/L (96-108); Glomerular Filtration Rate 5
[2019-12-24 07:29] LABS: CA 125 13.5 U/mL (0.0-35.0)
[2019-12-24 07:46] LABS: Parathyroid Hormone Intact-SO 746.1 pg/ml (15-65)
[2019-12-24 07:50] LABS: Lymphocytes % 16 % (15-49); Monocytes % (Manual) 9 % (1-12); Platelet Estimate NORMAL (NORMAL); RBC Morphology NORMAL (NORMAL); Segmented Neutrophils % 75 % (38-78)
[2019-12-24] MEDS: INSULIN LISPRO 1 UNIT/0.01 ML UNIT SQ SCH ×4 (08:05→20:24)
[2019-12-24] MEDS: HEPARIN 5,000 UNIT/ML VIAL SQ SCH ×2 (08:07→20:22)
[2019-12-24] MEDS: DOCUSATE SODIUM 100 MG CAPSULE PO SCH ×2 (08:07→20:24)
[2019-12-24] MEDS: 0.9 % SODIUM CHLORIDE 10 ML SYRINGE IV SCH ×3 (08:08→20:24)
[2019-12-24 08:11] LABS: Alpha Fetoprotein NonMaternal 0.8 ng/mL (0.0-8.7)
[2019-12-24] MEDS ORDERED: MULTIVIT,THER IRON,CA,FA & MIN 1 TABLET PO SCH (09:00)
--- NOTE | 2019-12-24 09:34 | Internal Med Progress Note ---
Medical - PN: Subj Patient information: Note initiated : 12/24/19 at 9:32 am Service Date, if different from initiated Date: [] Patient: Ema Vang a 79 y/o F admitted on 12/23/19 for Nausea/Vomiting, Syncope. Chief Complaint: [] Interval history: Ms. Vang is a 79 year old F with a history of HTN, DM, ESRD on PD with recent episode of peritonitis status post treatment on antibiotics. Patient usually follows up with nephrology Katie. She presents to the ER today with worsening confusion, progressive abdominal pain associated nausea vomiting inability to eat or drink that has progressed over the last few days. Symptoms associated with loss of appetite/recurrent retching with every attempt to eat or drink. She feels very dehydrated dizzy Initial work-up in the ER was consistent with urinary tract infection/acute change in mental status /white count 12.7 and elevated calcium at 11.7. Nephrology was consulted and requested admission. Subsequently hospital service consulted At the time evaluation patient is fatigued lethargic and unable to provide a detailed history. She was able to provide answers to most of the review of systems. She denies fever but endorses to loss of appetite/abdominal discomfort generalized exacerbated with stools of vomiting. Denies chest pain, diaphoresis, sick contacts or fever chills. She further denies diarrhea or bloody stool 12/23-patient clinically improved. Status post volume replacement. Improving calcium/sodium. Work-up ongoing per nephrology. On antibiotic coverage. Peritoneal fluid cell counts less than 100. CT abdomen pelvis question masslike rounded atelectasis at the left base. Persistent myoclonic/involuntary movement. MRI brain today. - Constitutional Vitals: Vital Signs Temp Pulse Resp BP Pulse Ox 97.8 F 115 H 18 101/59 97 12/24/19 08:54 12/24/19 08:00 12/24/19 08:00 12/24/19 08:54 12/24/19 08:00 Period Temp Pulse Resp BP Sys/Hartman Pulse Ox Last 24 Hr 97.4 F-98.3 F 86-150 11-26 38-133/18-117 91-100 Intake and Output 12/23/19 12/24/19 12/24/19 21:59 05:59 13:59 Intake Total 80 1000 Output Total 5 0 Balance -5 80 1000 Weight 131 lb 12.8 oz Intake & Output: Intake & Output 12/23/19 12/24/19 12/24/19 21:59 05:59 13:59 Intake Total 80 1000 Output Total 5 0 Balance -5 80 1000 Weight 131 lb 12.8 oz Intake: IV 1000 Sodium Chloride 0.9% 1,000 ml @ 1000 100 mls/hr IV .Q10H [place] Rx#: [id number] Oral 80 Output: Void Amount 5 0 Other: Urine Color Bright Yellow # Unmeasured Emesis 1 # Bowel Movements 0 0 General appearance: no acute distress Exam: More alert and lucid Nonlabored breathing Involuntary movements No anxiety Medical - PN: Obj Da - Labs CBC & Chem 7: 12/24/19 05:20 12/24/19 05:20 Labs: Abnormal Lab Results 12/24/19 12/24/19 12/24/19 21:00 05:20 05:20 WBC Hgb RDW Gran # [place] # (Auto) POC Sodium Sodium Potassium 3.2 L POC Chloride Chloride 94 L Anion Gap 20.0 H POC BUN BUN 45 H Creatinine 7.4 H* POC Creatinine Glucose POC Glucose Calcium 11.3 H POC WB Ioniz Calcium Phosphorus 4.6 H Magnesium 1.5 L Total Protein (PEP) 5.2 L Albumin 3.1 L Triglycerides 201 H PTH Intact 746.1 H Urine Protein Urine Occult Blood Ur Leukocyte Esterase Urine RBC Urine WBC Ur Squamous Epith Cells Urine Yeast (Budding) 12/24/19 12/23/19 12/23/19 05:20 12:56 08:51 WBC 12.9 H Hgb 10.9 L RDW 14.7 H Gran # [place] # (Auto) POC Sodium 129 L Sodium 129 L Potassium POC Chloride 92 L Chloride 87 L Anion Gap 18.0 H POC BUN 42 H BUN 49 H Creatinine 7.4 H* POC Creatinine 9.3 H* Glucose 149 H POC Glucose 148 H Calcium 11.7 H POC WB Ioniz Calcium 1.44 H Phosphorus Magnesium Total Protein (PEP) Albumin Triglycerides PTH Intact Urine Protein 100 A Urine Occult Blood 0.03 A Ur Leukocyte Esterase 250 A Urine RBC 61 H Urine WBC > 182 H Ur Squamous Epith Cells > 182 H Urine Yeast (Budding) Many A 12/23/19 08:51 WBC 12.7 H Hgb RDW 14.7 H Gran # 9.29 H [place] # (Auto) 1.05 H POC Sodium Sodium Potassium POC Chloride Chloride Anion Gap POC BUN BUN Creatinine POC Creatinine Glucose POC Glucose Calcium POC WB Ioniz Calcium Phosphorus Magnesium Total Protein (PEP) Albumin Triglycerides PTH Intact Urine Protein Urine Occult Blood Ur Leukocyte Esterase Urine RBC Urine WBC Ur Squamous Epith Cells Urine Yeast (Budding) Meds: Medications Acetaminophen (Tylenol) 650 mg PO Q4-6HP PRN; Protocol PRN Reason: Per Pain Protocol/Fever > 101 Bisacodyl (Dulcolax) 10 mg UT Q2-3DAYS PRN PRN Reason: Constipation Dextrose (Dextrose 50%) 0 ml IV UD PRN PRN Reason: Hypoglycemia Diagnostic Test (Pha) (Accu-Chek) 1 each FS [facility] Last Admin: 12/24/19 08:04 Dose: 1 each Documented by: Docusate Sodium (Colace) 100 mg PO BID [facility] Last Admin: 12/24/19 08:07 Dose: 100 mg Documented by: Glucose (Insta-Glucose) 15 gm PO PRN PRN PRN Reason: Hypoglycemia Heparin Sodium (Porcine) (Heparin) 5,000 unit SQ Q12 [facility] Last Admin: 12/24/19 08:07 Dose: 5,000 unit Documented by: Acetaminophen (Ofirmev) 650 mg in 65 mls @ 130 mls/hr IV Q6HP PRN; Protocol PRN Reason: Per Pain Protocol/Fever > 101 Insulin Human Lispro (Humalog) 0 unit SQ [facility]; Protocol Last Admin: 12/24/19 08:05 Dose: Not Given Documented by: Melatonin (Melatonin 3mg Tablet) 3 mg PO HSP PRN PRN Reason: Insomnia Metoclopramide HCl (Reglan) 5 mg IV Q6HP PRN PRN Reason: nausea and vomiting Polyethylene Glycol (Miralax) 17 gm PO DAILYP PRN PRN Reason: Constipation Senna/Docusate Sodium (Senna Plus Tablet) 1 tab PO HS [facility] Last Admin: 12/23/19 22:41 Dose: 1 tab Documented by: Sodium Chloride (Saline Flush) 10 ml IV Q8 [facility] Last Admin: 12/24/19 08:08 Dose: 10 ml Documented by: Medical - PN: A/P - Time Spent With Patient Total time spent is greater than 50% in coordination of care (as documented) at patient's floor/unit and/or counseling patient: 25 - 35 minutes (1) Nausea & vomiting Status: Acute Assessment and plan: * Nausea and vomiting with abdominal pain-abdominal CT unremarkable. Clinically improving. No evidence of SBP(normal peritoneal fluid cell count) * Acute change in mental status secondary to combination of UTI/volume depletion -rapidly improved * Hypercalcemia calcium 11.7. Now down to 11.3. Nephrology on board. * Hypovolemic hyponatremia-up from 09 11-. Continue management per nephrology * Recurrent spasms/myoclonic jerks. Await MRI brain * ESRD on PD nephrology consulted * Complicated UTI-continue antibiotic coverage * History of COPD-continue home bronchodilators * Hyperlipidemia -Continue statin * DM type II continue basal prandial insulin/CC diet * GERD continue PPI * Hypertension home dose amlodipine * Full code * Prophylax Heparin Plan * Renal failure/electrolyte management per nephrology * Continue antibiotic coverage * MRI brain * Pre-existing medical condition management as above * PT OT nutrition support * Discharge planning Current Visit: Yes Medical - PN: Qual - VTE Deep Vein Thrombosis/Pulmonary Embolism Present on Admission: No
--- NOTE | 2019-12-24 10:53 | Cat Scan Report ---
CLINICAL INFORMATION: Abdominal pain COMPARISON: 10/06/2018 TECHNIQUE: 0.625 mm helical slices were obtained from the mid heart through the subtrochanteric regions. Following reconstruction, 2.5 mm sagittal, coronal and axial reformatted images were processed and reviewed at bone and soft tissue windows.The exam was performed using radiation dose optimization techniques including, but not limited to, automated exposure control, adjustment of the mA and/or kV according to patient size and use of iterative reconstruction technique. FINDINGS: Lung bases show mild cardiomegaly with extremely heavy calcification mitral annulus and a small amount of calcium in the mitral valve. There is also moderately heavy calcific plaque in the coronary arteries. Small left pleural effusion and moderate consolidated infiltrate/atelectasis in the peripheral left lower lobe and lingula are new from previous exam. Right lung base unremarkable. Abdominal images show the noncontrast liver is normal in size. 4 mm simple cyst left hepatic lobe stable no significant hepatic abnormality. A small amount of gas is seen in the maximino hepatis which was not present on the previous study. It is difficult to localize suspect it is in the proximal left hepatic duct. Gallbladder is unremarkable. Common bile duct normal diameter: 6 mm. Multiple large cysts, widely disseminated throughout renal parenchyma, bilaterally is compatible with adult polycystic kidney disease. Both adrenal glands and pancreas are normal. Few splenic granulomas again seen. The abdominal aorta is normal diameter with very heavy calcific plaque. There is calcification in the aortic branches. Pelvic images show a small amount of urine within the urinary bladder. Hysterectomy and left oophorectomy changes noted. There is moderate free fluid in the deep true pelvis. Patient is on peritoneal dialysis: The catheter enters the anterior abdominal wall in the right paraumbilical region and descends into the mesenteric cavity terminating in the right false pelvis. A 2.2 cm ovoid density in the right true pelvis, surrounded by peritoneal fluid, is presumably a retained right ovary. There are multiple sigmoid diverticuli, however no evidence of diverticulitis. The remaining colon, appendix small bowel and stomach are normal. Small hiatal hernia appreciated. Bone windows show L2-3 and L3-4 posterior fusion due to changes which are solid. No focal osseous lesion IMPRESSION: 1. Moderate free fluid in the true and false pelvis which is, presumably, peritoneal dialysate. 3.2 cm ovoid soft tissue density in the right true pelvis likely represents a retained right ovary. Please correlate with surgical history. If the right ovary is, supposedly, surgically absent, suggest pelvic ultrasound to ensure this density is not pathologic. 2. Sigmoid diverticulosis 3. Multiple renal cysts compatible with APKD. 4. Moderate consolidated atelectasis or infiltrate in the peripheral lingula and left lower lobe with small left pleural effusion. Suggest two-view upright chest x-ray. 5. Small hiatal hernia. Interpreted and Authenticated by: Kolby Hollingsworth 12/24/19
--- NOTE | 2019-12-24 15:15 | Magnetic Resonance Report ---
CLINICAL INFORMATION: Syncope COMPARISON: None. TECHNIQUE:Sagittal T1 FLAIR, axial T1 FLAIR, T2 FLAIR propeller, T2 propeller, gradient, diffusion, ADC and coronal T2 weighted images were acquired. FINDINGS: The ventricles, sulci, fissures and cisterns are symmetrically enlarged compatible with mild age-related atrophy. There is a 12.9 mm benign meningioma arising from the dura in the left frontal lobe. No associated mass effect or edema. Multiple chronic ischemic foci in the deep cerebral white matter expected for age. There are no regions of restricted diffusion, edema, mass effect hemorrhage or other acute findings. The signal void in the intracerebral arteries, extra-axial cranial nerves, pituitary and orbits are all normal IMPRESSION: 1. No acute findings. 2. 12.9 mm benign meningioma in the left frontal lobe - no associated mass effect or edema. 3. Mild atrophy and patchy chronic ischemic changes in the cerebral white matter - typical for age. Interpreted and Authenticated by: Kolby Hollingsworth 12/24/19
--- NOTE | 2019-12-24 17:01 | Nephrology Progress Note ---
Subjective Patient information: Note initiated : 12/24/19 at 4:58 pm Service Date, if different from initiated Date: [] Patient: Ema Vang 79 y/o F admitted on 12/23/19 for Nausea/Vomiting, Syncope. Chief Complaint: [] Principal diagnosis: Failure to thrive Interval history: In the past 24 hours the patient has shown clinical improvement and the clinical picture is coming into focus 1. I believe she is markedly dehydrated due to n/v/and decreased oral fluid intake, there is little urination, but she has had net neg fluid balance due to her CCPD net ultrafiltration and i suspicion she needs less dialysis so cut down on her potassium and net volume losses. 2. Hypercalcemia is due to dehydration, hyperparathyroidism ( may be tertiary as PTH should be suppressed not markedly elevated by hypercalcemia. The pelvic mass is new and could represent a mitotic process and this will need further w/u, especially is tumor markers or PTH related peptide is elevated. 3. Nausea and vomiting could well be do to to uncontrolled hyperparathyroidism, but EGD findings suggest an esophageal ring that was dilated previously and a hiatal hernia which could worsen with increased abdominal pressure from PD fluid though her symptoms occur in the daytime when abd is "dry". Finally, diabetic gastroparesis is always a potential cause of N/V in this situation. It seens better with iv hydration and metoclopramide. 4. Infection seems unlikely in this case. Laboratory Tests 12/23/19 12/24/19 08:51 05:20 WBC 12.7 H 12.9 H Hgb 11.4 10.9 L Hct 35.4 34.1 Plt Count 283 266 Seg Neutrophils % 75 Band Neutrophils % Not Reportable Lymphocytes % 16 Monocytes % (Manual) 9 Laboratory Tests 12/24/19 12/24/19 12/24/19 05:20 05:20 05:20 Sodium 137 Potassium 3.2 L Chloride 94 L Carbon Dioxide 23 Anion Gap 20.0 H BUN 45 H Creatinine 7.4 H* GFR Calculation 5 Glucose 87 Uric Acid 5.4 Calcium 11.3 H Phosphorus 4.6 H Magnesium 1.5 L Total Protein (PEP) 5.2 L Albumin 3.1 L Albumin (PEP) Pending Globulin 2.8 Globulin (PEP) Pending Albumin/Globulin Ratio 1.1 Albumin/Globulin (PEP) Pending [id number] Pending [id number] Pending Beta Globulins Pending Gamma Globulins Pending PEP Interpretation Pending Triglycerides 201 H Alpha Fetoprotein 0.8 CA 19-9 Antigen 23.8 CA 125 Antigen 13.5 HCG, Qual Negative <10 PTH Intact 746.1 PTH Related Protein Pending Cortisol AM Sample 12.5 Laboratory Tests 12/23/19 12/23/19 21:00 Unknown Peritoneal Source Pdf Peritoneal Color Colorless Peritoneal Appearance Clear Peritoneal RBC < [address] 89 Periton Nuc Cells 12 Periton Neutrophils [address] Head: FINDINGS: The ventricles, sulci, fissures and cisterns are symmetrically enlarged compatible with mild age-related atrophy. There is a 12.9 mm benign meningioma arising from the dura in the left frontal lobe. No associated mass effect or edema. Multiple chronic ischemic foci in the deep cerebral white matter expected for age. There are no regions of restricted diffusion, edema, mass effect hemorrhage or other acute findings. The signal void in the intracerebral arteries, extra-axial cranial nerves, pituitary and orbits are all normal IMPRESSION: 1. No acute findings. 2. 12.9 mm benign meningioma in the left frontal lobe - no associated mass effect or edema. 3. Mild atrophy and patchy chronic ischemic changes in the cerebral white matter - typical for age. CT ABD and Pelvis: IMPRESSION: 1. Moderate free fluid in the true and false pelvis which is, presumably, peritoneal dialysate. 3.2 cm ovoid soft tissue density in the right true pelvis likely represents a retained right ovary. Please correlate with surgical history. If the right ovary is, supposedly, surgically absent, suggest pelvic ultrasound to ensure this density is not pathologic. 2. Sigmoid diverticulosis 3. Multiple renal cysts compatible with APKD. 4. Moderate consolidated atelectasis or infiltrate in the peripheral lingula and left lower lobe with small left pleural effusion. Suggest two-view upright chest x-ray. 5. Small hiatal hernia. Prior TransVag U/S Sep, 2018 COMPARISON: CT scan dated 10/01/2018 FINDINGS: Previous hysterectomy. Ovaries are not identified. There is mild free fluid within the pelvis. No solid or cystic adnexal mass. No focal abnormality IMPRESSION: 1. Mild free pelvic fluid 2. Previous hysterectomy. Ovaries are not visualized Prior EGD 05/2019: FINDINGS: ESOPHAGUS: Proximal, mid and distal esophagus normal. There may have been some increased number of fine blood vessels at the distal esophagus, but this was not very prominent. Biopsies were taken because of her complaint of occasional reflux. EG junction was around 38 cm. Sometimes there was no ring or stricture seen. Other times there was a near-complete ring noted. Because of this, dilation was accomplished with a 17 mm [place] dilator. There was a hiatal hernia down to 40 cm. STOMACH: Cardia, fundus and body: Normal. Antrum: There were a few areas of minimal erythema and edema in the prepyloric region. PYLORUS: This appeared normal. DUODENUM: In the bulb and at the junction of the bulb and descending limb of the duodenum, there were areas of erythema and edema noted. No ulcers were seen. No blood was seen. The descending limb of the duodenum appeared normal. RECOMMENDATIONS: Continue omeprazole, I believe 20 mg a day. The patient should not reduce the PPI medication at this time. If anything, she may need a slight increase for a while. Nursing summary: Patient has had a good day. A/O x 4, cooperative, pleasant. Calls appropriately. Impulsive with her movements this morning during phys therapy, but has not been impulsive the rest of this shift. New IV to left AC. Room air. VSS. Peritoneal dialysis runs each night, PD nurse comes in to begin and end treatment. Takes pills whole with water. Unable to connect with pt's Carlos A during this shift to go over home medication list, but went over it with patient to the best of her recollection. Patient is up to BSC or chair with only SBA. Ambulated in hallways today and did very well. Patient plans on returning home upon discharge. Sinus rhythm on monitor. Verbal update to follow at shift change. Summing up: 1. Still volume contracted, hypercalcemic, tachycardic and hypotensive. Less dialysis and more saline IV would be my recommendation. 2. Pelvic mass may be new given pelvic U/S report. 3. GI N/V likely polyfactorial with Hx gastritias, hiatal hernia, esophageal ring, hyperparathyroidism, gastroparesis, and increased intra-abdominal pressure from PD Pertinent ROS: Improved N/V. Ambulated some Additional PMFSH (Level 3 Only): N/A Objective - Vital Signs Vital signs: Vital Signs Temp Pulse Resp BP BP Pulse Ox 12/24/19 14:00 37.0 C 100 H 18 111/58 96 05/12/20 12:00 36.8 C 108 H 18 100/56 95 12/24/19 10:00 36.2 C 95 H 18 114/68 96 12/24/19 08:54 36.6 C 101/59 12/24/19 08:00 36.6 C 115 H 18 101/59 96 12/24/19 05:55 36.8 C 16 101/59 94 12/24/19 04:00 36.8 C 18 88/50 93 12/24/19 02:00 36.4 C 20 117/65 100 12/24/19 00:10 86 100 12/24/19 00:00 36.3 C 18 111/62 94 12/23/19 22:00 36.3 C 18 90/55 94 12/23/19 21:23 36.6 C 88/53 12/23/19 20:55 36.6 C 87 16 88/53 93 12/23/19 19:33 36.6 C 98 H 16 88/53 93 12/23/19 17:03 20 12/23/19 17:01 22 78/58 Intake and Output 12/24/19 12/24/19 12/24/19 05:59 13:59 21:59 Intake Total 80 1720 Output Total 0 Balance 80 1720 Intake: IV 1000 Sodium Chloride 0.9% 1,000 ml @ 1000 100 mls/hr IV .Q10H [facility] Rx#: [id number] Oral 80 720 Output: Void Amount 0 Other: Meal Lunch Percent of Meal Consumed 100% Feeding Ability Independent Urine Appearance Clear Clear Urine Color Bright Yellow Bright Yellow # Unmeasured Emesis 1 # Bowel Movements 0 Weight 59.783 kg Patient Weight 12/25/19 05:59 Weight 59.783 kg Intake & Output: Intake & Output 12/24/19 12/24/19 12/24/19 05:59 13:59 21:59 Intake Total 80 1720 Output Total 0 Balance 80 1720 Weight 59.783 kg Intake: IV 1000 Sodium Chloride 0.9% 1,000 ml @ 1000 100 mls/hr IV .Q10H [facility] Rx#: [id number] Oral 80 720 Output: Void Amount 0 Other: Meal Lunch Percent of Meal Consumed 100% Feeding Ability Independent Urine Appearance Clear Clear Urine Color Bright Yellow Bright Yellow # Unmeasured Emesis 1 # Bowel Movements 0 - General Appearance General appearance: chronically ill EENT: ATNC, PERRL, mucous membranes dry, hearing intact, vision intact Neck: no JVD, no carotid bruit, supple Respiratory: clear Cardiology: no murmurs, no rub, no gallops, no edema, regular rate, regular rhythm, normal S1, split S1 Gastrointestinal: normoactive bowel sounds, no tenderness, no masses Integumentary: warm and dry Neurologic: no focal deficit, no asterixis, alert and oriented x3, CN 3-12 intact Musculoskeletal: no deformities, no erythema, no cyanosis, no clubbing Psychiatric: mood/affect appropriate (MRI brain, CT abd and pelvis reviewed in HPI/interval history) - Lab 12/24/19 05:20 12/24/19 05:20 Most recent lab results Calcium 11.3 mg/dl (8.6-10.4) H 12/24/19 05:20 Phosphorus 4.6 mg/dL (2.7-4.5) H 12/24/19 05:20 Magnesium 1.5 mg/dL (1.6-2.5) L 12/24/19 05:20 Assessment and Plan (1) Hypotension, unspecified 1. NS with KCl 2 liters ordered at 100 cc/hr. 2. No signs of infection 3. Suspect PD fluid losses and failure to keep up with po intake because on N/V 4. Decrease PD deleviery and therefore PD fluid loss Status: Acute Priority: High (2) ESRD on peritoneal dialysis Decreased PD delivery (less volume) Status: Chronic Priority: Medium (3) Nausea & vomiting 1. Improving. 2. More volume with NS with 20 meq/l KCl 3. Continue reglan 4. Agree with diet change, she needs all the nutrition she can stand. Status: Acute Priority: High Qualifiers: Vomiting type: unspecified Vomiting Intractability: non-intractable Qualified Code(s): R11.2 - Nausea with vomiting, unspecified (4) Failure to thrive in adult 1. Improved today 2. [place] is correcting dehydration, addressing nausea, decrease dialysis delivery, treat tertiary hypoparathyroidism with sensipar, probably will need nuclear parathyroid scan and referral for PTx as an outpatient. 3. Bryant sure the finding in the pelvis is not a mitotic process. It appears new based on prior scanning. Status: Acute - Narrative A/P Narrative: Case discussed with PD nurse and changes to PD made for tonight. Monitor labs and I/O's Keep hydrating Sensipar for hyperparathyroidism and reglan for N/V
[2019-12-24] MEDS: NACL 0.9% W/KCL 20MEQ 1,000 ML IV SCH (18:47)
[2019-12-24] MEDS: SENNOSIDES/DOCUSATE SODIUM 1 TAB TABLET PO SCH (19:34)
[2019-12-24] MEDS: MELATONIN 3 MG TABLET PO PRN ×2 (20:22→21:34)
[2019-12-25] MEDS: NACL 0.9% W/KCL 20MEQ 1,000 ML IV SCH (04:22)
[2019-12-25] MEDS: 0.9 % SODIUM CHLORIDE 10 ML SYRINGE IV SCH ×3 (05:34→20:39)
[2019-12-25 07:01] LABS: Hematocrit 34.1 % (34.1-44.9); Hemoglobin 10.8 g/dL (11.2-15.7); Mean Cell Volume 86.5 fL (80.0-100.0); Mean Corpuscular HGB Conc 31.7 g/dL (31.0-36.0); Mean Platelet Volume 9.2 fL (7.4-10.4); Platelet Count 272 K/mcL (140-440); RBC 3.94 M/mcL (3.59-5.38); Red Cell Distribution Width 14.6 % (11.5-14.5); WBC 10.8 K/mcL (4.50-11.00)
[2019-12-25 08:07] LABS: Eosinophils % (Manual) 4 % (0-7); Lymphocytes % 18 % (15-49); Monocytes % (Manual) 7 % (1-12); Platelet Estimate NORMAL (NORMAL); RBC Morphology NORMAL (NORMAL); Segmented Neutrophils % 71 % (38-78)
[2019-12-25 08:20] LABS: ALT/SGPT 23 U/l (0-40); AST/SGOT 32 U/l (0-37); Albumin 3.1 gm/dL (3.2-5.2); Albumin/Globulin Ratio 1.1 (1.0-2.3); Alkaline Phosphatase 110 U/L (39-117); Bilirubin,Direct < 0.2 mg/dL (0.0-0.3); Bilirubin,Total 0.2 mg/dL (0.0-1.0); Blood Urea Nitrogen 39 mg/dl (8-23); Carbon Dioxide 20 mmol/L (22-30); Globulin 2.9 gm/dL (2.2-3.7); Glucose 105 mg/dL (70-105); Lactate Dehydrogenase 217 U/L (94-250); Phosphorous 4.2 mg/dL (2.7-4.5); Triglycerides 175 mg/dl (<150); Uric Acid 5.3 mg/dL (2.5-8.0)
[2019-12-25] MEDS: CINACALCET 30 MG TABLET PO SCH (08:28)
[2019-12-25] MEDS: INSULIN LISPRO 1 UNIT/0.01 ML UNIT SQ SCH ×4 (08:28→20:39)
[2019-12-25] MEDS: DOCUSATE SODIUM 100 MG CAPSULE PO SCH ×2 (08:29→20:33)
[2019-12-25] MEDS: HEPARIN 5,000 UNIT/ML VIAL SQ SCH ×2 (08:29→20:34)
[2019-12-25 08:33] LABS: Chloride 93 mmol/L (96-108); Glomerular Filtration Rate 5
[2019-12-25] MEDS ORDERED: MAGNESIUM SULFATE 2 GM/50 ML BAG IV ONE (08:49)
--- NOTE | 2019-12-25 09:12 | XRay Report ---
CLINICAL INFORMATION: Follow up LLL and lingular infiltrate COMPARISON: 10/04/2018 plain film and lung base images from recent abdomen CT 12/23/2019 FINDINGS: Heart is mildly enlarged, but unchanged. Mediastinum and pulmonary vessels are normal. Small loculated left pleural effusion has increased from prior plain film. There is a 3 cm rounded density in the posterior lateral left lower lobe correlating with a small consolidated infiltrate noted on recent CT. Scattered calcified granulomas noted in both mid and lower lungs. A small amount of free air under the right diaphragm likely related to peritoneal dialysis. IMPRESSION: Small left pleural effusion and small consolidated infiltrate posterior lateral left lower lobe unchanged from most recent abdominal CT. Lingular infiltrate is not well visualized. Minor free air right diaphragm related to peritoneal dialysis no change Interpreted and Authenticated by: Kolby Hollingsworth 12/25/19
--- NOTE | 2019-12-25 09:34 | Internal Med Progress Note ---
Medical - PN: Subj Patient information: Note initiated : 12/25/19 at 9:31 am Service Date, if different from initiated Date: [] Patient: Ema Vang a 79 y/o F admitted on 12/23/19 for Nausea/Vomiting, Syncope. Chief Complaint: [] Interval history: Ms. Vang is a 79 year old F with a history of HTN, DM, ESRD on PD with recent episode of peritonitis status post treatment on antibiotics. Patient usually follows up with nephrology Katie. She presents to the ER today with worsening confusion, progressive abdominal pain associated nausea vomiting inability to eat or drink that has progressed over the last few days. Symptoms associated with loss of appetite/recurrent retching with every attempt to eat or drink. She feels very dehydrated dizzy Initial work-up in the ER was consistent with urinary tract infection/acute change in mental status /white count 12.7 and elevated calcium at 11.7. Nephrology was consulted and requested admission. Subsequently hospital service consulted At the time evaluation patient is fatigued lethargic and unable to provide a detailed history. She was able to provide answers to most of the review of systems. She denies fever but endorses to loss of appetite/abdominal discomfort generalized exacerbated with stools of vomiting. Denies chest pain, diaphoresis, sick contacts or fever chills. She further denies diarrhea or bloody stool 12/23-patient clinically improved. Status post volume replacement. Improving calcium/sodium. Work-up ongoing per nephrology. On antibiotic coverage. Peritoneal fluid cell counts less than 100. CT abdomen pelvis question masslike rounded atelectasis at the left base. Persistent myoclonic/involuntary movement. MRI brain today. 12/24-patient had a rough night and complained that she was unable to sleep. However involuntary jerking movements per staff is much improved. More alert lucid and able to hold a conversation. Tolerating diet. White count down to 10.8. Stable vitals. ESRD management ongoing per nephrology. Will likely discharge in 24 to 48 hours. Improved nausea vomiting. - Constitutional Vitals: Vital Signs Temp Pulse Resp BP Pulse Ox 97.8 F 109 H 18 113/70 92 12/25/19 09:00 12/25/19 08:00 12/25/19 08:00 12/25/19 09:00 12/25/19 05:55 Period Temp Pulse Resp BP Sys/Hartman Pulse Ox Last 24 Hr 97.2 F-98.6 F 94-109 18-18 92-114/51-70 92-97 Intake and Output 12/24/19 12/25/19 12/25/19 21:59 05:59 13:59 Intake Total 1300 Output Total 350 Balance -350 1300 Weight 138 lb 7 oz Intake & Output: Intake & Output 12/24/19 12/25/19 12/25/19 21:59 05:59 13:59 Intake Total 1300 Output Total 350 Balance -350 1300 Weight 138 lb 7 oz Intake: IV 1000 NaCl 0.9% W/KCl 20Meq 1000ML 1, 1000 000 ml @ 100 mls/hr IV .Q10H [facility] Rx#:[id number] Oral 300 Output: Void Amount 350 Other: Urine Appearance Clear Urine Color Dark Yellow Stool Size Large Small Stool Color Brown Brown Green Green Stool Consistency Soft Loose # Voids 1 # Bowel Movements 1 1 # of times incontinent of 1 Bowels General appearance: no acute distress Exam: Alert oriented Nonlabored breathing Nontender nondistended abdomen No anxiety Improved involuntary movements Medical - PN: Obj Da - Labs CBC & Chem 7: 12/25/19 05:20 12/25/19 05:20 Labs: Abnormal Lab Results 12/25/19 12/25/19 12/24/19 05:20 05:20 21:00 WBC Hgb 10.8 L RDW 14.6 H Gran # [place] # (Auto) POC Sodium Sodium Potassium POC Chloride Chloride 93 L Carbon Dioxide 20 L Anion Gap 20.0 H POC BUN BUN 39 H Creatinine 7.3 H* POC Creatinine Glucose POC Glucose Calcium 11.0 H POC WB Ioniz Calcium Phosphorus Magnesium 1.5 L Total Protein (PEP) Albumin 3.1 L Triglycerides 175 H PTH Intact 746.1 H Urine Protein Urine Occult Blood Ur Leukocyte Esterase Urine RBC Urine WBC Ur Squamous Epith Cells Urine Yeast (Budding) 12/24/19 12/24/19 12/24/19 05:20 05:20 05:20 WBC 12.9 H Hgb 10.9 L RDW 14.7 H Gran # [place] # (Auto) POC Sodium Sodium Potassium 3.2 L POC Chloride Chloride 94 L Carbon Dioxide Anion Gap 20.0 H POC BUN BUN 45 H Creatinine 7.4 H* POC Creatinine Glucose POC Glucose Calcium 11.3 H POC WB Ioniz Calcium Phosphorus 4.6 H Magnesium 1.5 L Total Protein (PEP) 5.2 L Albumin 3.1 L Triglycerides 201 H PTH Intact Urine Protein Urine Occult Blood Ur Leukocyte Esterase Urine RBC Urine WBC Ur Squamous Epith Cells Urine Yeast (Budding) 12/23/19 12/23/19 12/23/19 12:56 08:51 08:51 WBC 12.7 H Hgb RDW 14.7 H Gran # 9.29 H [place] # (Auto) 1.05 H POC Sodium 129 L Sodium 129 L Potassium POC Chloride 92 L Chloride 87 L Carbon Dioxide Anion Gap 18.0 H POC BUN 42 H BUN 49 H Creatinine 7.4 H* POC Creatinine 9.3 H* Glucose 149 H POC Glucose 148 H Calcium 11.7 H POC WB Ioniz Calcium 1.44 H Phosphorus Magnesium Total Protein (PEP) Albumin Triglycerides PTH Intact Urine Protein 100 A Urine Occult Blood 0.03 A Ur Leukocyte Esterase 250 A Urine RBC 61 H Urine WBC > 182 H Ur Squamous Epith Cells > 182 H Urine Yeast (Budding) Many A Meds: Medications Acetaminophen (Tylenol) 650 mg PO Q4-6HP PRN; Protocol PRN Reason: Per Pain Protocol/Fever > 101 Bisacodyl (Dulcolax) 10 mg ME Q2-3DAYS PRN PRN Reason: Constipation Cinacalcet (Sensipar) 60 mg PO [facility] Last Admin: 12/25/19 08:28 Dose: 60 mg Documented by: Dextrose (Dextrose 50%) 0 ml IV UD PRN PRN Reason: Hypoglycemia Diagnostic Test (Pha) (Accu-Chek) 1 each FS ACHS [facility] Last Admin: 12/25/19 08:28 Dose: 1 each Documented by: Docusate Sodium (Colace) 100 mg PO BID [facility] Last Admin: 12/25/19 08:29 Dose: Not Given Documented by: Glucose (Insta-Glucose) 15 gm PO PRN PRN PRN Reason: Hypoglycemia Heparin Sodium (Porcine) (Heparin) 5,000 unit SQ Q12 [facility] Last Admin: 12/25/19 08:29 Dose: 5,000 unit Documented by: Acetaminophen (Ofirmev) 650 mg in 65 mls @ 130 mls/hr IV Q6HP PRN; Protocol PRN Reason: Per Pain Protocol/Fever > 101 Potassium Chloride/Sodium Chloride (Nacl 0.9% W/Kcl 20meq 1000ml) 1,000 mls @ 100 mls/hr IV .Q10H [facility] Stop: 12/25/19 14:44 Last Admin: 12/25/19 04:22 Dose: 100 mls/hr Documented by: Magnesium Sulfate (Magnesium Sulfate) 2 gm in 50 mls @ 25 mls/hr IV ONCE ONE Stop: 12/25/19 10:48 Insulin Human Lispro (Humalog) 0 unit SQ ACHS [facility]; Protocol Last Admin: 12/25/19 08:28 Dose: Not Given Documented by: Melatonin (Melatonin 3mg Tablet) 3 - 6 mg PO HSP PRN PRN Reason: Insomnia Last Admin: 12/24/19 21:34 Dose: 3 mg Documented by: Metoclopramide HCl (Reglan) 5 mg IV Q6HP PRN PRN Reason: nausea and vomiting Polyethylene Glycol (Miralax) 17 gm PO DAILYP PRN PRN Reason: Constipation Senna/Docusate Sodium (Senna Plus Tablet) 1 tab PO HS [facility] Last Admin: 12/24/19 19:34 Dose: Not Given Documented by: Sodium Chloride (Saline Flush) 10 ml IV Q8 [facility] Last Admin: 12/25/19 05:34 Dose: 10 ml Documented by: Medical - PN: A/P - Time Spent With Patient Total time spent is greater than 50% in coordination of care (as documented) at patient's floor/unit and/or counseling patient: 25 - 35 minutes (1) Nausea & vomiting Status: Acute Assessment and plan: * ESRD on PD nephrology consulted * Complicated UTI-continue antibiotic coverage * Nausea and vomiting - Clinically resolved. * Abdominal pain, negative dull CT. No evidence of SBP(normal peritoneal fluid cell count) * Acute change in mental status secondary to combination of UTI/volume depletion - clinically back at baseline * Hypercalcemia calcium 11.7. Now down to 11. Nephrology on board. * Hypovolemic hyponatremia-up from 129->133. Continue management per nephrology * Recurrent spasms/myoclonic jerks. Clinically resolved. MRI brain 12.9 mm benign meningioma left frontal lobe. No acute events * History of COPD-continue home bronchodilators * Hyperlipidemia -Continue statin * DM type II continue basal prandial insulin/CC diet * GERD continue PPI * Hypertension home dose amlodipine * Full code * Prophylax Heparin Plan * Renal failure/electrolyte management per nephrology * DC antibiotic in 24 hours * Pre-existing medical condition management as above * PT OT nutrition support * Discharge planning Current Visit: Yes Medical - PN: Qual - VTE Deep Vein Thrombosis/Pulmonary Embolism Present on Admission: No
[2019-12-25] MEDS: POTASSIUM CHLORIDE 20 MEQ TABLET PO ONE ×2 (10:04→10:12)
[2019-12-25] MEDS ORDERED: POTASSIUM CHLORIDE 20 MEQ PACKET PO ONE (10:13)
[2019-12-25] MEDS ORDERED: BENZOCAINE/MENTHOL 1 LOZENGE PO PRN (13:36)
[2019-12-25 13:59] LABS: Appearance,Urine CLOUDY; Bacteria,Urine FEW /hpf (0); Bilirubin,Urine NEG (NEG); Color,Urine YELLOW; Glucose,Urine (UA) NEGATIVE (NEG); Ketones,Urine NEG (NEG); Leukocyte Esterase,Urine 250 /uL (NEG); Nitrate,Urine NEG (NEG); Protein,Urine 100 mg/dL (NEG); Specific Gravity,Urine 1.015 (1.000-1.035); Urine Blood 0.2 mg/dL (<0.03); Urine RBC 26 /hpf (0-1); Urine Squamous Epithelial Cell 49 /hpf (0-4); Urine WBC 74 /hpf (0-4); Urobilinogen,Urine NEG (NEG)
[2019-12-25] MEDS: ONDANSETRON 4 MG/2 ML VIAL IV PRN ×2 (14:12→20:38)
--- NOTE | 2019-12-25 16:01 | XRay Report ---
CLINICAL INFORMATION: aspiration rule out COMPARISON: 12/25/2019 FINDINGS: Moderate cardiomegaly is unchanged. Mediastinum and pulmonary vessels are normal. Left basilar infiltrate has worsened with small left pleural effusion. Left diaphragm slightly elevated. IMPRESSION: Moderate left basilar infiltrate small effusion worsening. Interpreted and Authenticated by: Kolby Hollingsworth 12/25/19
--- NOTE | 2019-12-25 18:12 | Nephrology Progress Note ---
Subjective Patient information: Note initiated : 12/25/19 at 6:10 pm Service Date, if different from initiated Date: [] Patient: Ema Vang 79 y/o F admitted on 12/23/19 for Nausea/Vomiting, Syncope. Chief Complaint: [] Principal diagnosis: Failure to thrive Interval history: Seen and examined on evening rounds. Word on the street is that the patient desires continued NIPD at home. She needs to be able to do this by herself as the is overwheled at the level of care needed after 5 yrsd of home therapy She needs to be able to help with her own treatments Remains Afebrile, tachycardic, hypotensive with good oxygenation. Date of Service: 12/25/19 Procedure(s): XR chest 1V portable FINDINGS: Moderate cardiomegaly is unchanged. Mediastinum and pulmonary vessels are normal. Left basilar infiltrate has worsened with small left pleural effusion. Left diaphragm slightly elevated. IMPRESSION: Moderate left basilar infiltrate small effusion worsening. Pertinent ROS: Nothing new Objective - Vital Signs Vital signs: Vital Signs Temp Pulse Resp BP BP BP Pulse Ox 12/25/19 16:00 36.2 C 109 H 18 103/58 98 12/25/19 14:00 36.8 C 114 H 18 103/55 96 12/25/19 12:00 36.3 C 113 H 18 100/60 95 12/25/19 10:00 36.6 C 114 H 18 121/59 94 12/25/19 09:00 36.6 C 113/70 12/25/19 08:00 36.4 C 109 H 18 113/70 12/25/19 05:55 36.5 C 106 H 18 100/59 92 12/25/19 04:00 36.4 C 107 H 18 103/62 96 12/25/19 01:53 36.4 C 103 H 18 92/59 96 12/24/19 23:51 36.4 C 94 H 18 96/59 95 12/24/19 22:05 36.6 C 101 H 18 92/53 94 12/24/19 20:00 36.6 C 100 H 18 110/66 97 12/24/19 19:51 36.6 C 93/51 Intake and Output 12/25/19 12/25/19 12/25/19 05:59 13:59 21:59 Intake Total 1300 290 480 Output Total 125 Balance 1300 290 355 Intake: IV 1000 50 NaCl 0.9% W/KCl 20Meq 1000ML 1, 1000 000 ml @ 100 mls/hr IV .Q10H [facility] Rx#:[id number] Oral 300 240 480 Output: Void Amount 25 Emesis 100 Other: Urine Appearance Clear Urine Color Bright Yellow Stool Size Small Small Stool Color Brown Green Stool Consistency Loose Loose # Voids 1 # Unmeasured Emesis 3 # Bowel Movements 1 3 # of times incontinent of 1 Bowels Intake & Output: Intake & Output 12/25/19 12/25/19 12/25/19 05:59 13:59 21:59 Intake Total 1300 290 480 Output Total 125 Balance 1300 290 355 Intake: IV 1000 50 NaCl 0.9% W/KCl 20Meq 1000ML 1, 1000 000 ml @ 100 mls/hr IV .Q10H [facility] Rx#:[id number] Oral 300 240 480 Output: Void Amount 25 Emesis 100 Other: Urine Appearance Clear Urine Color Bright Yellow Stool Size Small Small Stool Color Brown Green Stool Consistency Loose Loose # Voids 1 # Unmeasured Emesis 3 # Bowel Movements 1 3 # of times incontinent of 1 Bowels - General Appearance General appearance: moderate distress EENT: PERRL, mucous membranes moist Neck: no JVD, no thyromegaly, no carotid bruit Respiratory: no kyphosis, clear, course breath sounds ( at the right base ) Cardiology: no murmurs, no rub, no gallops, no edema Gastrointestinal: normoactive bowel sounds, no tenderness, no guarding Integumentary: no rash, warm and dry Neurologic: no focal deficit, alert and oriented x3, CN 3-12 intact Musculoskeletal: no deformities, no erythema, no cyanosis Psychiatric: mood/affect appropriate, agitated - Lab 12/25/19 05:20 12/25/19 05:20 Most recent lab results Calcium 11.0 mg/dl (8.6-10.4) H 12/25/19 05:20 Phosphorus 4.2 mg/dL (2.7-4.5) 12/25/19 05:20 Magnesium 1.5 mg/dL (1.6-2.5) L 12/25/19 05:20 Assessment and Plan (1) Hypotension, unspecified 1. NS with KCl 2 liters ordered at 100 cc/hr. 2. No signs of infection 3. Suspect PD fluid losses and failure to keep up with po intake because on N/V 4. Decrease PD deleviery and therefore PD fluid loss Status: Acute Priority: High (2) ESRD on peritoneal dialysis Decreased PD delivery (less volume) Status: Chronic Priority: Medium (3) Nausea & vomiting 1. Improving. 2. More volume with NS with 20 meq/l KCl 3. Continue reglan 4. Agree with diet change, she needs all the nutrition she can stand. Status: Acute Priority: High Qualifiers: Vomiting type: unspecified Vomiting Intractability: non-intractable Qualified Code(s): R11.2 - Nausea with vomiting, unspecified (4) Failure to thrive in adult 1. Improved today 2. [place] is correcting dehydration, addressing nausea, decrease dialysis delivery, treat tertiary hypoparathyroidism with sensipar, probably will need nuclear parathyroid scan and referral for PTx as an outpatient. 3. Bryant sure the finding in the pelvis is not a mitotic process. It appears new based on prior scanning. Status: Acute - Narrative A/P Narrative: Case discussed with PD nurse and changes to PD made for tonight. Monitor labs and I/O's Keep hydrating Sensipar for hyperparathyroidism and reglan for N/V avoid any medications that can cause drowsiness or altered
[2019-12-25] MEDS: SENNOSIDES/DOCUSATE SODIUM 1 TAB TABLET PO SCH (20:33)
[2019-12-25] MEDS: MELATONIN 3 MG TABLET PO SCH (20:38)
[2019-12-25] MEDS: METOCLOPRAMIDE 10 MG/2 ML VIAL IV PRN (23:39)
[2019-12-26] MEDS ORDERED: LORazepam 1 MG TABLET PO ONE (00:50)
[2019-12-26] MEDS ORDERED: LORazepam 1 MG TABLET ONE (00:57)
[2019-12-26] MEDS: 0.9 % SODIUM CHLORIDE 10 ML SYRINGE IV SCH ×3 (05:47→22:02)
[2019-12-26 06:27] LABS: Hematocrit 33.2 % (34.1-44.9); Hemoglobin 10.7 g/dL (11.2-15.7); Mean Cell Volume 85.6 fL (80.0-100.0); Mean Corpuscular HGB Conc 32.2 g/dL (31.0-36.0); Mean Platelet Volume 9.2 fL (7.4-10.4); Platelet Count 278 K/mcL (140-440); RBC 3.88 M/mcL (3.59-5.38); Red Cell Distribution Width 15.1 % (11.5-14.5); WBC 12.5 K/mcL (4.50-11.00)
[2019-12-26 06:57] LABS: ALT/SGPT 27 U/l (0-40); AST/SGOT 33 U/l (0-37); Albumin 3.2 gm/dL (3.2-5.2); Albumin/Globulin Ratio 1.1 (1.0-2.3); Alkaline Phosphatase 113 U/L (39-117); Bilirubin,Direct < 0.2 mg/dL (0.0-0.3); Bilirubin,Total 0.3 mg/dL (0.0-1.0); Blood Urea Nitrogen 35 mg/dl (8-23); Calcium 10.7 mg/dl (8.6-10.4); Carbon Dioxide 21 mmol/L (22-30); Globulin 2.8 gm/dL (2.2-3.7); Glucose 134 mg/dL (70-105); Lactate Dehydrogenase 254 U/L (94-250); Phosphorous 4.3 mg/dL (2.7-4.5); Triglycerides 201 mg/dl (<150); Uric Acid 5.1 mg/dL (2.5-8.0)
[2019-12-26 07:23] LABS: Chloride 94 mmol/L (96-108); Glomerular Filtration Rate 5
[2019-12-26 08:09] LABS: Band Neutrophils % 1 % (0-10); Eosinophils % (Manual) 4 % (0-7); Lymphocytes % 18 % (15-49); Monocytes % (Manual) 11 % (1-12); Platelet Estimate NORMAL (NORMAL); RBC Morphology NORMAL (NORMAL); Segmented Neutrophils % 66 % (38-78)
[2019-12-26] MEDS: CINACALCET 30 MG TABLET PO SCH (08:11)
[2019-12-26] MEDS: DOCUSATE SODIUM 100 MG CAPSULE PO SCH ×2 (08:11→21:59)
[2019-12-26] MEDS: SEVELAMER 800 MG TABLET PO SCH ×3 (08:11→17:43)
[2019-12-26] MEDS: INSULIN LISPRO 1 UNIT/0.01 ML UNIT SQ SCH ×4 (09:08→22:02)
[2019-12-26] MEDS: HEPARIN 5,000 UNIT/ML VIAL SQ SCH ×2 (09:09→21:56)
--- NOTE | 2019-12-26 10:01 | Internal Med Progress Note ---
Medical - PN: Subj Patient information: Note initiated : 12/26/19 at 9:53 am Service Date, if different from initiated Date: [] Patient: Ema Vang a 79 y/o F admitted on 12/23/19 for Nausea/Vomiting, Syncope. Chief Complaint: [] Interval history: Ms. Vang is a 79 year old F with a history of HTN, DM, ESRD on PD with recent episode of peritonitis status post treatment on antibiotics. Patient usually follows up with nephrology Katie. She presents to the ER today with worsening confusion, progressive abdominal pain associated nausea vomiting inability to eat or drink that has progressed over the last few days. Symptoms associated with loss of appetite/recurrent retching with every attempt to eat or drink. She feels very dehydrated dizzy Initial work-up in the ER was consistent with urinary tract infection/acute change in mental status /white count 12.7 and elevated calcium at 11.7. Nephrology was consulted and requested admission. Subsequently hospital service consulted At the time evaluation patient is fatigued lethargic and unable to provide a detailed history. She was able to provide answers to most of the review of systems. She denies fever but endorses to loss of appetite/abdominal discomfort generalized exacerbated with stools of vomiting. Denies chest pain, diaphoresis, sick contacts or fever chills. She further denies diarrhea or bloody stool 12/23-patient clinically improved. Status post volume replacement. Improving calcium/sodium. Work-up ongoing per nephrology. On antibiotic coverage. Peritoneal fluid cell counts less than 100. CT abdomen pelvis question masslike rounded atelectasis at the left base. Persistent myoclonic/involuntary movement. MRI brain today. 12/24-patient had a rough night and complained that she was unable to sleep. However involuntary jerking movements per staff is much improved. More alert lucid and able to hold a conversation. Tolerating diet. White count down to 10.8. Stable vitals. ESRD management ongoing per nephrology. Will likely discharge in 24 to 48 hours. Improved nausea vomiting. 12/25-patient was unable to sleep last night. Underwent barium swallow today. Able to swallow with difficulty. Eating breakfast. No overnight fever chills. Ongoing peritoneal dialysis per nephrology. Calcium down to 10.7. Potassium replacement ongoing. Improved nausea vomiting. Hypotension resolved. - Constitutional Vitals: Vital Signs Temp Pulse Resp BP Pulse Ox 98.1 F 119 H 18 107/61 95 12/26/19 08:39 12/26/19 06:49 12/26/19 06:49 12/26/19 08:39 12/26/19 06:49 Period Temp Pulse Resp BP Sys/Hartman Pulse Ox Last 24 Hr 97.2 F-98.2 F 102-120 18-26 92-121/54-61 94-98 Intake and Output 12/25/19 12/26/19 12/26/19 21:59 05:59 13:59 Intake Total 480 1500 Output Total 125 3 Balance 355 1497 Weight 140 lb 4.8 oz Intake & Output: Intake & Output 12/25/19 12/26/19 12/26/19 21:59 05:59 13:59 Intake Total 480 1500 Output Total 125 3 Balance 355 1497 Weight 140 lb 4.8 oz Intake: IV 1000 NaCl 0.9% W/KCl 20Meq 1000ML 1, 1000 000 ml @ 100 mls/hr IV .Q10H [facility] Rx#:[id number] Oral 480 400 GI Tube Flush 100 Output: Void Amount 25 # of times incontinent of urine 3 Emesis 100 Other: Feeding Ability Independent Urine Appearance Clear Clear Urine Color Bright Yellow Bright Yellow Stool Size Small Small Small Stool Color Brown Brown Brown Green Stool Consistency Loose Soft Loose # Voids 1 # Unmeasured Emesis 3 # Bowel Movements 1 General appearance: no acute distress Exam: Alert oriented Nonlabored breathing No anxiety Nondistended abdomen Medical - PN: Obj Da - Labs CBC & Chem 7: 12/26/19 05:45 12/26/19 05:45 Labs: Abnormal Lab Results 12/26/19 12/26/19 12/25/19 05:45 05:45 13:01 WBC 12.5 H Hgb 10.7 L Hct 33.2 L RDW 15.1 H Sodium Potassium Chloride 94 L Carbon Dioxide 21 L Anion Gap 19.0 H BUN 35 H Creatinine 7.0 H* Glucose 134 H Calcium 10.7 H Phosphorus Magnesium Lactate Dehydrogenase 254 H Total Protein (PEP) Albumin Triglycerides 201 H PTH Intact Urine Protein 100 A Urine Occult Blood 0.2 A Ur Leukocyte Esterase 250 A Urine RBC 26 H Urine WBC 74 H Ur Squamous Epith Cells 49 H Urine Bacteria Few A Urine Yeast (Budding) 12/25/19 12/25/19 12/24/19 05:20 05:20 21:00 WBC Hgb 10.8 L Hct RDW 14.6 H Sodium Potassium Chloride 93 L Carbon Dioxide 20 L Anion Gap 20.0 H BUN 39 H Creatinine 7.3 H* Glucose Calcium 11.0 H Phosphorus Magnesium 1.5 L Lactate Dehydrogenase Total Protein (PEP) Albumin 3.1 L Triglycerides 175 H PTH Intact 746.1 H Urine Protein Urine Occult Blood Ur Leukocyte Esterase Urine RBC Urine WBC Ur Squamous Epith Cells Urine Bacteria Urine Yeast (Budding) 12/24/19 12/24/19 12/24/19 05:20 05: 05:20 WBC 12.9 H Hgb 10.9 L Hct RDW 14.7 H Sodium Potassium 3.2 L Chloride 94 L Carbon Dioxide Anion Gap 20.0 H BUN 45 H Creatinine 7.4 H* Glucose Calcium 11.3 H Phosphorus 4.6 H Magnesium 1.5 L Lactate Dehydrogenase Total Protein (PEP) 5.2 L Albumin 3.1 L Triglycerides 201 H PTH Intact Urine Protein Urine Occult Blood Ur Leukocyte Esterase Urine RBC Urine WBC Ur Squamous Epith Cells Urine Bacteria Urine Yeast (Budding) 12/23/19 12/23/19 12:56 08:51 WBC Hgb Hct RDW Sodium 129 L Potassium Chloride 87 L Carbon Dioxide Anion Gap 18.0 H BUN Creatinine 7.4 H* Glucose Calcium Phosphorus Magnesium Lactate Dehydrogenase Total Protein (PEP) Albumin Triglycerides PTH Intact Urine Protein 100 A Urine Occult Blood 0.03 A Ur Leukocyte Esterase 250 A Urine RBC 61 H Urine WBC > 182 H Ur Squamous Epith Cells > 182 H Urine Bacteria Urine Yeast (Budding) Many A Meds: Medications Acetaminophen (Tylenol) 650 mg PO Q4-6HP PRN; Protocol PRN Reason: Per Pain Protocol/Fever > 101 Bisacodyl (Dulcolax) 10 mg UT Q2-3DAYS PRN PRN Reason: Constipation [facility] ([facility]) [facility] Last Admin: 12/26/19 08:11 Dose: Not Given Documented by: Dextrose (Dextrose 50%) 0 ml IV UD PRN PRN Reason: Hypoglycemia Diagnostic Test (Pha) (Accu-Chek) 1 each FS [facility] Last Admin: 12/26/19 07:15 Dose: 1 each Documented by: Docusate Sodium (Colace) 100 mg PO BID [facility] Last Admin: 12/26/19 08:11 Dose: Not Given Documented by: Glucose (Insta-Glucose) 15 gm PO PRN PRN PRN Reason: Hypoglycemia Heparin Sodium (Porcine) (Heparin) 5,000 unit SQ Q12 [facility] Last Admin: 12/26/19 09:09 Dose: 5,000 unit Documented by: Acetaminophen (Ofirmev) 650 mg in 65 mls @ 130 mls/hr IV Q6HP PRN; Protocol PRN Reason: Per Pain Protocol/Fever > 101 Insulin Human Lispro (Humalog) 0 unit SQ [facility]; Protocol Last Admin: 12/26/19 09:08 Dose: Not Given Documented by: Melatonin (Melatonin 3mg Tablet) [address] [facility] Last Admin: 12/25/19 20:38 Dose: 6 mg Documented by: Metoclopramide HCl (Reglan) 5 mg IV Q6HP PRN PRN Reason: nausea and vomiting Last Admin: 12/25/19 23:39 Dose: 5 mg Documented by: Ondansetron HCl (Zofran) 4 mg IV Q4HP PRN PRN Reason: Nausea And Vomiting Last Admin: 12/25/19 20:38 Dose: 4 mg Documented by: Polyethylene Glycol (Miralax) 17 gm PO DAILYP PRN PRN Reason: Constipation Senna/Docusate Sodium (Senna Plus Tablet) [address] [facility] Last Admin: 12/25/19 20:33 Dose: Not Given Documented by: Sevelamer Carbonate (Renvela) 800 mg PO [facility] Last Admin: 12/26/19 08:11 Dose: Not Given Documented by: Sodium Chloride (Saline Flush) 10 ml IV Q8 [facility] Last Admin: 12/26/19 05:47 Dose: 10 ml Documented by: Throat Lozenges (Cepacol) 1 lozenge PO DAILYP PRN PRN Reason: Sore Throat Last Admin: 12/25/19 14:03 Dose: 1 lozenge Documented by: Medical - PN: A/P - Time Spent With Patient Total time spent is greater than 50% in coordination of care (as documented) at patient's floor/unit and/or counseling patient: 15 - 24 minutes (1) Nausea & vomiting Status: Acute Assessment and plan: * Hypercalcemia calcium 11.7. Now down to 10.7. Nephrology managing * Hypokalemia on replacement * ESRD on PD managed per nephrology * Nausea and vomiting - Clinically resolved. * Dysphagia to solids-status post barium swallow. Will consult GI. Speech therapy eval for dietary modifications * Abdominal pain, negative abdominal CT. No evidence of SBP(normal peritoneal fluid cell count) * Acute change in mental status -clinically resolved * Hypovolemic hyponatremia-up from 129->133. Continue management per nephrology * Recurrent spasms/restless leg -start Requip, MRI brain 12.9 mm benign meningioma left frontal lobe. No acute events * Complicated UTI-off antibiotics * History of COPD-continue home bronchodilators * Hyperlipidemia -Continue statin * DM type II continue basal prandial insulin/CC diet * GERD continue PPI * Hypertension home dose amlodipine * Full code * Prophylax Heparin Plan * ESRD/electrolyte management per nephrology * Replace electrolytes * Diet per ST recommendations * GI consult if necessary for evaluation of dysphagia * Pre-existing medical condition management as above * PT OT nutrition support * Discharge planning Current Visit: Yes Medical - PN: Qual - VTE Deep Vein Thrombosis/Pulmonary Embolism Present on Admission: No
--- NOTE | 2019-12-26 10:12 | XRay Report ---
CLINICAL INFORMATION: Dysphagia TECHNIQUE: Carbon dioxide crystals and 10 cc of water with simethacone drops were administered. High density/high viscosity barium was ingested under fluoroscopic observation while spot films were obtained of the esophagus during deglutition in both the upright and prone positions. Rossley time 45 seconds FINDINGS: Tongue elevation and palate depression are normal resulting in propulsion of the barium bolus into the pharynx. The nasopharyngeus closes normally. There is incomplete closure of the epiglottis and vocal cords allowing moderate descending aspiration: barium penetrates laryngeal ventricle extends into the trachea. This elicited a minimal cough reflex Pharyngeal stripping and cricopharyngeal opening are normal. The primary peristaltic wave is disrupted by multiple discoordinate tertiary contractions compatible with presbyesophagus. A small fixed hiatal hernia is appreciated. There is a mild focal stricture at the GE junction which narrows the esophageal lumen approximately 50%. This is most likely peptic. There is moderate reflux to the mid heart level with cleared promptly. IMPRESSION: 1. Moderate descending aspiration due to incomplete epiglottis and vocal cord closure. This elicited a weak cough reflex. 2. Small fixed hiatal hernia. 50% stricture at the GE junction which is more likely peptic than malignant. Consider upper endoscopy 3. Moderate presbyesophagus. 4. Mild GE reflux to the mid heart level which cleared promptly. Interpreted and Authenticated by: Kolby Hollingsworth 12/26/19
[2019-12-26] MEDS ORDERED: POTASSIUM CHLORIDE 20 MEQ PACKET PO ONE (10:18)
[2019-12-26] MEDS ORDERED: rOPINIRole 1 MG TABLET PO SCH (15:00)
[2019-12-26 15:45] LABS: Albumin PEP 2.59 gm/dl (3.1-4.7); Alpha-1-Globulins 0.28 gm/dl (0.1-0.5); Alpha-2-Globulins 0.94 gm/dL (0.4-1.2); Beta Globulins 0.83 gm/dL (0.6-1.2); Gamma Globulins 0.57 gm/dL (0.5-1.7); Globulin PEP 2.6 gm/dl (2.4-3.6)
--- NOTE | 2019-12-26 16:10 | Nephrology Progress Note ---
Subjective Patient information: Note initiated : 12/26/19 at 4:04 pm Service Date, if different from initiated Date: [] Patient: Ema Vang 79 y/o F admitted on 12/23/19 for Nausea/Vomiting, Syncope. Chief Complaint: [] Principal diagnosis: Failure to thrive Interval history: Seen and examined prior to dialysis. Jg camp reviewed and does a long way to explaining some of her failure to thrive. Will see if she has had a decrease in her effeciency of PD by a 4 hour Peritoneal eqilibration test Hypercalcemia remains a vexing problem and when corrected for hypoalbuminemia the level is approaching 12 Still could mitotic related but looking less so That leave hyperparathyroidism so continue sensipar as tolerated 90 mg with PM meal and monitor Ca/PO4 and PTHi Waiting on PTH related peptide Ultimately, I agree with Dr Gorman and a PTx will be needed N/V and abd pain are all associated with HPT Patient was seen and examined on afternoon rounds. She was alert sitting up in bed has not vomited today all of which are improved. I spent a fair amount of time explaining how all her disease processes are related. Looking back I suspect she had left lower lobe pneumonia last month probably from aspiration and I remain unconvinced that her "peritonitis" was more than a sympathetic effusion due to her left lower lung process but in either case she was adequately treated for culture-negative peritonitis. The barium swallow tells the story in terms of the fact that she has a number of esophageal motility problems none of which by themselves is serious except that in a peritoneal dialysis patient who is lying flat on her back with 2 L of peritoneal fluid in her abdominal cavity it seems clear to me that this would increase her GE reflux, may even increase her hiatal hernia, contributory nausea, and contribute to her aspiration. In addition the failure to thrive because of nausea vomiting and longstanding ESRD with peritoneal dialysis also contribute to her weight loss and hypo-albuminemia. I suspect that she has decreased protein intake and increased protein losses through her PD fluid. As of late she is now hypercalcemic and has evidence of tertiary h yperparathyroidism (I corrected serum calcium of 12 should markedly reduce her parathyroid function but instead we see PTH level over 700. I will use high- dose Sensipar to see if we can shut off her parathyroid gland but if this is tertiary hyperparathyroidism this may not happen, and a parathyroidectomy would be in order. Additionally, hyperparathyroidism is a well-known cause of nausea vomiting abdominal pain and bone pain all of which she complains about to some degree or another. 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 Tomorrow I will try to obtain a 4-hour peritoneal equilibrium test and use that information to better tailor her dialysis prescription Ba Swallow 1. Moderate descending aspiration due to incomplete epiglottis and vocal cord closure. This elicited a weak cough reflex. 2. Small fixed hiatal hernia. 50% stricture at the GE junction which is more likely peptic than malignant. Consider upper endoscopy 3. Moderate presbyesophagus. 4. Mild GE reflux to the mid heart level which cleared promptly. Interpreted and Authenticated by: Kolby Hollingsworth 12/26/19 Pertinent ROS: NTA Additional PMFSH (Level 3 Only): N/A Objective - Vital Signs Vital signs: Vital Signs Temp Pulse Pulse Resp BP BP BP 12/26/19 12:00 36.3 C 112 H 20 125/54 12/26/19 10:00 36.4 C 109 H 20 112/67 12/26/19 08:39 36.7 C 107/61 12/26/19 06:49 36.7 C 119 H 18 107/61 12/26/19 04:00 36.6 C 120 H 18 92/58 12/26/19 02:00 102 H 22 12/25/19 23:48 36.7 C 111 H 22 101/61 12/25/19 20:19 36.3 C 97/58 12/25/19 20:00 104 H 18 12/25/19 18:32 36.3 C 109 H 26 H 97/58 12/25/19 18:00 36.4 C 109 H 18 106/54 Pulse Ox 12/26/19 12:00 98 12/26/19 10:00 96 12/26/19 08:39 12/26/19 06:49 95 12/26/19 04:00 97 12/26/19 02:00 94 12/25/19 23:48 94 12/25/19 20:19 12/25/19 20:00 96 12/25/19 18:32 96 12/25/19 18:00 96 Intake and Output 12/26/19 12/26/19 12/26/19 05:59 13:59 21:59 Intake Total 1500 480 Output Total 3 Balance 1497 480 Intake: IV 1000 NaCl 0.9% W/KCl 20Meq 1000ML 1, 1000 000 ml @ 100 mls/hr IV .Q10H [facility] Rx#:[id number] Oral 400 480 GI Tube Flush 100 Output: # of times incontinent of urine 3 Other: Meal Lunch Percent of Meal Consumed 50% Feeding Ability Independent Independent Urine Appearance Clear Urine Color Bright Yellow Stool Size Small Small Stool Color Brown Brown Stool Consistency Soft Loose # Voids 1 # Bowel Movements 1 Weight 63.639 kg Patient Weight 12/27/19 05:59 Weight 63.639 kg Intake & Output: Intake & Output 12/26/19 12/26/19 12/26/19 05:59 13:59 21:59 Intake Total 1500 480 Output Total 3 Balance 1497 480 Weight 63.639 kg Intake: IV 1000 NaCl 0.9% W/KCl 20Meq 1000ML 1, 1000 000 ml @ 100 mls/hr IV .Q10H [facility] Rx#:[id number] Oral 400 480 GI Tube Flush 100 Output: # of times incontinent of urine 3 Other: Meal Lunch Percent of Meal Consumed 50% Feeding Ability Independent Independent Urine Appearance Clear Urine Color Bright Yellow Stool Size Small Small Stool Color Brown Brown Stool Consistency Soft Loose # Voids 1 # Bowel Movements 1 - General Appearance General appearance: appears started age, chronically ill EENT: ATNC, PERRL, mucous membranes dry Neck: no JVD, no thyromegaly, no carotid bruit, supple Respiratory: no kyphosis, course breath sounds (Especially at the left base), rhonchi (Especially at the left base) Cardiology: no murmurs, no rub, no gallops, normal S1, normal S2 Gastrointestinal: normoactive bowel sounds, no tenderness (Exit site looks clean and dry from PD catheter), no masses Integumentary: no rash, warm and dry Neurologic: no focal deficit, no asterixis, alert and oriented x3, strength 5/5 (4+/5 motor strength) Musculoskeletal: no deformities, no erythema, no cyanosis, no clubbing Psychiatric: mood/affect appropriate (Pleasant awake and receptive to conversation today) - Lab 12/26/19 05:45 12/26/19 05:45 Most recent lab results Calcium 10.7 mg/dl (8.6-10.4) H 12/26/19 05:45 Phosphorus 4.3 mg/dL (2.7-4.5) 12/26/19 05:45 Magnesium 2.0 mg/dL (1.6-2.5) 12/26/19 05:45 - Imaging Kidney/bladder ultrasound: other (Barium swallow results reviewed as noted in interval history) Assessment and Plan (1) Hypotension, unspecified 1. No signs of infection 2. Suspect PD fluid losses and failure to keep up with po intake because on N/V have led to volume contraction 3. Decrease PD deleviery and u/f leading to decrease in PD fluid loss 4. Still has resting tachycardia with a blood pressure barely above 100 Status: Acute Priority: High (2) ESRD on peritoneal dialysis Decreased PD delivery (less volume) and I would estimate she daily use as little as 6 L of exchange a day. 2. 4-hour PET to see if we can get a better dialysis prescription 3. Because of her propensity for aspiration and GI dysmotility and a hiatal hernia, she needs smaller fill volumes, smaller exchanges, which will need a longer time on dialysis with more frequent PD exchanges. Status: Chronic Priority: Medium (3) Nausea & vomiting 1. Improving. 2. More volume with NS with 20 meq/l KCl 3. Continue reglan 4. Agree with diet change, she needs all the nutrition she can stand. Status: Acute Priority: High Qualifiers: Vomiting type: unspecified Vomiting Intractability: non-intractable Qualified Code(s): R11.2 - Nausea with vomiting, unspecified (4) Failure to thrive in adult 1. Improved today 2. Altman is correcting dehydration, addressing nausea, decrease dialysis delivery, treat tertiary hypoparathyroidism with sensipar, probably will need nuclear parathyroid scan and referral for PTx as an outpatient. 3. Bryant sure the finding in the pelvis is not a mitotic process. It appears new based on prior scanning. According to the patient she has had a hysterectomy but no oophorectomy. Since her Ca1 25 is normal, my index of suspicion for a mitotic process in the pelvis is very low Status: Acute (5) Hiatal hernia with GERD and esophagitis 1. Reflux precautions 2. PPI 3. Smaller fill volumes with NIPD 4. Increase protein intake 5. Avoid medicines that would interfere with her perception of aspiration such as her trazodone, or medications that would reduce her LES tone such as calcium channel blockers. Reglan has the advantage of increasing LES tone in people with GERD and diabetes. Status: Acute Priority: High (6) Aspiration into lower respiratory tract 1. Last month she presented with left lower lobe pneumonia 2. While improved it is still present 3. Suspect she has surreptitious aspiration due to reflux, increased intra- abdominal pressure from peritoneal dialysis fluid, and oropharyngeal muscle weakness or incoordination. 4. Reflux precautions, PPI, Reglan, may benefit from speech pathology and attempt to correct her protein calorie malnutrition Status: Acute Qualifiers: Encounter type: subsequent encounter Qualified Code(s): T17.800D - Unspecified foreign body in other parts of respiratory tract causing asphyxiati on, subsequent encounter
[2019-12-26] MEDS: MELATONIN 3 MG TABLET PO SCH ×2 (21:56→21:57)
[2019-12-26] MEDS: SENNOSIDES/DOCUSATE SODIUM 1 TAB TABLET PO SCH (21:59)
[2019-12-26] MEDS: rOPINIRole 0.25 MG TABLET PO SCH (22:23)
[2019-12-27] MEDS: 0.9 % SODIUM CHLORIDE 10 ML SYRINGE IV SCH ×3 (06:14→21:05)
[2019-12-27 06:40] LABS: Mean Cell Volume 85.9 fL (80.0-100.0); Mean Corpuscular HGB Conc 32.3 g/dL (31.0-36.0); Mean Platelet Volume 9.2 fL (7.4-10.4); Platelet Count 236 K/mcL (140-440); RBC 3.61 M/mcL (3.59-5.38); Red Cell Distribution Width 15.5 % (11.5-14.5)
[2019-12-27 06:57] LABS: ALT/SGPT 22 U/l (0-40); AST/SGOT 26 U/l (0-37); Albumin 2.8 gm/dL (3.2-5.2); Albumin/Globulin Ratio 1.1 (1.0-2.3); Alkaline Phosphatase 102 U/L (39-117); Bilirubin,Direct < 0.2 mg/dL (0.0-0.3); Bilirubin,Total 0.2 mg/dL (0.0-1.0); Blood Urea Nitrogen 33 mg/dl (8-23); Carbon Dioxide 23 mmol/L (22-30); Chloride 97 mmol/L (96-108); Globulin 2.6 gm/dL (2.2-3.7); Glucose 111 mg/dL (70-105); Lactate Dehydrogenase 223 U/L (94-250); Phosphorous 3.6 mg/dL (2.7-4.5); Triglycerides 134 mg/dl (<150); Uric Acid 5.4 mg/dL (2.5-8.0)
[2019-12-27 07:30] LABS: Glomerular Filtration Rate 5
[2019-12-27 07:49] LABS: Anisocytosis FEW (NONE SEEN); Eosinophils % (Manual) 5 % (0-7); Lymphocytes % 26 % (15-49); Monocytes % (Manual) 11 % (1-12); Platelet Estimate NORMAL (NORMAL); Polychromasia FEW (NONE SEEN); RBC Morphology ABNORM (NORMAL); Segmented Neutrophils % 58 % (38-78)
[2019-12-27] MEDS: INSULIN LISPRO 1 UNIT/0.01 ML UNIT SQ SCH ×4 (07:50→21:13)
[2019-12-27] MEDS: SEVELAMER 800 MG TABLET PO SCH ×3 (07:51→16:34)
[2019-12-27] MEDS ORDERED: CINACALCET 30 MG TABLET PO SCH (08:00)
[2019-12-27] MEDS: CINACALCET 30 MG TABLET PO SCH (08:04)
[2019-12-27] MEDS: rOPINIRole 0.25 MG TABLET PO SCH (08:54)
[2019-12-27] MEDS: HEPARIN 5,000 UNIT/ML VIAL SQ SCH ×2 (08:54→21:06)
[2019-12-27] MEDS: DOCUSATE SODIUM 100 MG CAPSULE PO SCH ×2 (08:55→21:04)
--- NOTE | 2019-12-27 09:37 | Internal Med Progress Note ---
Medical - PN: Subj Patient information: Note initiated : 12/27/19 at 9:33 am Service Date, if different from initiated Date: [] Patient: Ema Vang a 79 y/o F admitted on 12/23/19 for Nausea/Vomiting, Syncope. Chief Complaint: [] Interval history: Ms. Vang is a 79 year old F with a history of HTN, DM, ESRD on PD with recent episode of peritonitis status post treatment on antibiotics. Patient usually follows up with nephrology Katie. She presents to the ER today with worsening confusion, progressive abdominal pain associated nausea vomiting inability to eat or drink that has progressed over the last few days. Symptoms associated with loss of appetite/recurrent retching with every attempt to eat or drink. She feels very dehydrated dizzy Initial work-up in the ER was consistent with urinary tract infection/acute change in mental status /white count 12.7 and elevated calcium at 11.7. Nephrology was consulted and requested admission. Subsequently hospital service consulted At the time evaluation patient is fatigued lethargic and unable to provide a detailed history. She was able to provide answers to most of the review of systems. She denies fever but endorses to loss of appetite/abdominal discomfort generalized exacerbated with stools of vomiting. Denies chest pain, diaphoresis, sick contacts or fever chills. She further denies diarrhea or bloody stool 12/23-patient clinically improved. Status post volume replacement. Improving calcium/sodium. Work-up ongoing per nephrology. On antibiotic coverage. Peritoneal fluid cell counts less than 100. CT abdomen pelvis question masslike rounded atelectasis at the left base. Persistent myoclonic/involuntary movement. MRI brain today. 12/24-patient had a rough night and complained that she was unable to sleep. However involuntary jerking movements per staff is much improved. More alert lucid and able to hold a conversation. Tolerating diet. White count down to 10.8. Stable vitals. ESRD management ongoing per nephrology. Will likely discharge in 24 to 48 hours. Improved nausea vomiting. 12/25-patient was unable to sleep last night. Underwent barium swallow today. Able to swallow with difficulty. Eating breakfast. No overnight fever chills. Ongoing peritoneal dialysis per nephrology. Calcium down to 10.7. Potassium replacement ongoing. Improved nausea vomiting. Hypotension resolved. 12/26-patient doing well. Slept much better last night. Improved electrolytes. Potassium 3.7. Off antibiotics. Nausea resolved. Calcium down to 10. Improved lower extremity recurrent spasm and restlessness on pramipexole. Sodium 136. - Constitutional Vitals: Vital Signs Temp Pulse Resp BP Pulse Ox 97.8 F 111 H 17 93/56 96 12/27/19 08:00 12/27/19 08:00 12/27/19 08:00 12/27/19 08:00 12/27/19 08:00 Period Temp Pulse Resp BP Sys/Hartman Pulse Ox Last 24 Hr 97.1 F-98.7 F 105-112 90-125/53-67 93-98 Intake and Output 12/26/19 12/27/19 12/27/19 21:59 05:59 13:59 Intake Total 1200 120 240 Output Total 25 250 Balance 1175 -130 240 Weight 141 lb 6.4 oz Intake & Output: Intake & Output 12/26/19 12/27/19 12/27/19 21:59 05:59 13:59 Intake Total 1200 120 240 Output Total 25 250 Balance 1175 -130 240 Weight 141 lb 6.4 oz Intake: Oral 1200 120 240 Output: Void Amount 25 50 Urine/Stool Mix 200 Other: Meal Breakfast Percent of Meal Consumed 50% Feeding Ability Independent Urine Appearance Cloudy Urine Color Bright Yellow Stool Size Moderate Stool Color Brown Stool Consistency Loose # of times incontinent of 1 Bowels General appearance: no acute distress Exam: Feeling a lot better No anxiety improved involuntary movements/restless legs Nonlabored breathing Medical - PN: Obj Da - Labs CBC & Chem 7: 12/27/19 00:51 12/27/19 05:10 Labs: Abnormal Lab Results 12/27/19 12/27/19 12/26/19 05:10 00:51 05:45 WBC Hgb 10.0 L Hct 31.0 L RDW 15.5 H RBC Morphology Abnorm A Polychromasia Few A Anisocytosis Few A Chloride 94 L Carbon Dioxide 21 L Anion Gap 19.0 H BUN 33 H 35 H Creatinine 6.8 H* 7.0 H* Glucose 111 H 134 H Calcium 10.7 H Magnesium Lactate Dehydrogenase 254 H Total Protein 5.4 L Albumin 2.8 L Albumin (PEP) Triglycerides 201 H Urine Protein Urine Occult Blood Ur Leukocyte Esterase Urine RBC Urine WBC Ur Squamous Epith Cells Urine Bacteria 12/26/19 12/25/19 12/25/19 05:45 13:01 05:20 WBC 12.5 H Hgb 10.7 L Hct 33.2 L RDW 15.1 H RBC Morphology Polychromasia Anisocytosis Chloride 93 L Carbon Dioxide 20 L Anion Gap 20.0 H BUN 39 H Creatinine 7.3 H* Glucose Calcium 11.0 H Magnesium 1.5 L Lactate Dehydrogenase Total Protein Albumin 3.1 L Albumin (PEP) Triglycerides 175 H Urine Protein 100 A Urine Occult Blood 0.2 A Ur Leukocyte Esterase 250 A Urine RBC 26 H Urine WBC 74 H Ur Squamous Epith Cells 49 H Urine Bacteria Few A 12/25/19 12/24/19 05:20 05:20 WBC Hgb 10.8 L Hct RDW 14.6 H RBC Morphology Polychromasia Anisocytosis Chloride Carbon Dioxide Anion Gap BUN Creatinine Glucose Calcium Magnesium Lactate Dehydrogenase Total Protein Albumin Albumin (PEP) 2.59 L Triglycerides Urine Protein Urine Occult Blood Ur Leukocyte Esterase Urine RBC Urine WBC Ur Squamous Epith Cells Urine Bacteria Meds: Medications Acetaminophen (Tylenol) 650 mg PO Q4-6HP PRN; Protocol PRN Reason: Per Pain Protocol/Fever > 101 Bisacodyl (Dulcolax) 10 mg CO Q2-3DAYS PRN PRN Reason: Constipation Cinacalcet (Sensipar) 60 mg PO [facility] Last Admin: 12/27/19 08:04 Dose: Not Given Documented by: Cinacalcet (Sensipar) 90 mg PO [facility] Last Admin: 12/27/19 08:52 Dose: 90 mg Documented by: Dextrose (Dextrose 50%) 0 ml IV UD PRN PRN Reason: Hypoglycemia Diagnostic Test (Pha) (Accu-Chek) 1 each FS ACHS [facility] Last Admin: 12/27/19 07:50 Dose: 1 each Documented by: Docusate Sodium (Colace) 100 mg PO BID [facility] Last Admin: 12/27/19 08:55 Dose: Not Given Documented by: Glucose (Insta-Glucose) 15 gm PO PRN PRN PRN Reason: Hypoglycemia Heparin Sodium (Porcine) (Heparin) 5,000 unit SQ Q12 [facility] Last Admin: 12/27/19 08:54 Dose: 5,000 unit Documented by: Acetaminophen (Ofirmev) 650 mg in 65 mls @ 130 mls/hr IV Q6HP PRN; Protocol PRN Reason: Per Pain Protocol/Fever > 101 Insulin Human Lispro (Humalog) 0 unit SQ ACHS [facility]; Protocol Last Admin: 12/27/19 07:50 Dose: Not Given Documented by: Melatonin (Melatonin 3mg Tablet) 6 mg PO [facility] Last Admin: 12/26/19 21:57 Dose: Not Given Documented by: Metoclopramide HCl (Reglan) 5 mg IV Q6HP PRN PRN Reason: nausea and vomiting Last Admin: 12/25/19 23:39 Dose: 5 mg Documented by: Polyethylene Glycol (Miralax) 17 gm PO DAILYP PRN PRN Reason: Constipation Ropinirole HCl (Requip) 0.25 mg PO TID [facility] Last Admin: 12/27/19 08:54 Dose: 0.25 mg Documented by: Senna/Docusate Sodium (Senna Plus Tablet) 1 tab PO [facility] Last Admin: 12/26/19 21:59 Dose: Not Given Documented by: Sevelamer Carbonate (Renvela) 800 mg PO TIDCC [facility] Last Admin: 12/27/19 07:51 Dose: 800 mg Documented by: Sodium Chloride (Saline Flush) 10 ml IV Q8 [facility] Last Admin: 12/27/19 06:14 Dose: 10 ml Documented by: Throat Lozenges (Cepacol) 1 lozenge PO DAILYP PRN PRN Reason: Sore Throat Last Admin: 12/25/19 14:03 Dose: 1 lozenge Documented by: Medical - PN: A/P - Time Spent With Patient Total time spent is greater than 50% in coordination of care (as documented) at patient's floor/unit and/or counseling patient: 25 - 35 minutes (1) Nausea & vomiting Status: Acute Assessment and plan: * Hypercalcemia calcium 11.7. Now down to 10 managed per nephrology * Hypokalemia resolved with replacement * ESRD on PD managed per nephrology * Hypovolemic hyponatremia-up from 129-> 136. Continue management per nephrology * Hypertension home dose amlodipine Medical issues managed by hospital service * Esophageal stricture-GI consult for evaluation dysphagia * Dysphagia to solids-esophageal stricture on barium swallow. GI consult. Await speech therapy eval for dietary modifications * Abdominal pain, clinically resolved. Negative abdominal CT. No evidence of SBP(normal peritoneal fluid cell count) * Acute change in mental status -back at baseline * Recurrent spasms/restless leg -much improved on Requip, MRI brain 12.9 mm benign meningioma left frontal lobe but no acute process. * Complicated UTI-off antibiotics * History of COPD-continue home bronchodilators * Hyperlipidemia -Continue statin * DM type II continue basal prandial insulin/CC diet * GERD continue PPI * Full code * Prophylax Heparin Plan * ESRD/electrolyte management per nephrology * Continue pramipexole * GI consult for esophageal stricture and dysphagia * Awaiting diet recommendations per ST * Pre-existing medical condition management as above * PT OT nutrition support * Discharge planning Current Visit: Yes Medical - PN: Qual - VTE Deep Vein Thrombosis/Pulmonary Embolism Present on Admission: No
[2019-12-27] MEDS ORDERED: DEXTROSE 50% 50 ML VIAL IV PRN (12:37)
[2019-12-27] MEDS ORDERED: DEXTROSE 31 GM ORAL.SUSP PO PRN (12:37)
[2019-12-27] MEDS ORDERED: ACETAMINOPHEN 650 MG/65 ML BOTTLE IV PRN (12:37)
[2019-12-27] MEDS ORDERED: METOCLOPRAMIDE 10 MG/2 ML VIAL IV PRN (12:37)
[2019-12-27] MEDS ORDERED: BISACODYL 10 MG SUPP.RECT PR PRN (12:37)
[2019-12-27] MEDS ORDERED: BENZOCAINE/MENTHOL 1 LOZENGE PO PRN (12:37)
[2019-12-27] MEDS ORDERED: ACETAMINOPHEN 325 MG TABLET PO PRN (12:37)
[2019-12-27] MEDS ORDERED: POLYETHYLENE GLYCOL 3350 17 GM PACKET PO PRN (12:37)
[2019-12-27] MEDS ORDERED: rOPINIRole 0.25 MG TABLET PO SCH (15:00)
[2019-12-27 15:40] LABS: Blood Urea Nitrogen 31 mg/dl (8-23); Glucose 137 mg/dL (70-105)
[2019-12-27 15:43] LABS: Glomerular Filtration Rate 5
--- NOTE | 2019-12-27 16:40 | Nephrology Progress Note ---
Subjective Patient information: Note initiated : 12/27/19 at 4:31 pm Service Date, if different from initiated Date: [] Patient: Ema Vang 79 y/o F admitted on 12/23/19 for Nausea/Vomiting, Syncope. Chief Complaint: [] Principal diagnosis: Failure to thrive Interval history: In discussing this case with the peritoneal dialysis nurse who knows her best of all her health care providers, this patient has gone downhill in the past 2 months requiring frequent hospitalizations related to nausea and vomiting, she is developed hyperparathyroidism refractory to outpatient therapy, ultimately culminating in failure to thrive. Her has been overwhelmed by the downturn in her health and her inability help care for herself, thus the plan is we are struggling to diagnose and treat what it is that is causing her failure to thrive syndrome while giving her some respite time at home. Today we performed a PET calculation to optimize her dialysis, yesterday we noted that swallowing was definitely problematic with the main issues stemming from reflux worsened by a hiatal hernia, increased intra-abdominal pressure with the performance of peritoneal dialysis, and even some aspiration. Today is the first day her serum calcium has been significantly below 11, this c ould be triggered due to the Sensipar or the change in her peritoneal dialysis prescription. It is imperative that this patient not be given any antihistamines, trazodone, benzodiazepines, antipsychotic medications, or even antidepressants as they are interfering with her mental status and perhaps eating her small following mechanics. She protests by her has removed all these medications from the home... And I have told her on a daily basis that the only sleeping medication she can have is melatonin currently at 6 mg at bedtime but if needed we can go to a maximum dose of 20 mg at bedtime. Clinically, she reports feeling better. She remains afebrile, resting tachycardia, blood pressure remains below 100 systolic, with good O2 sats on room air. Her input and output records are much help since they do not include fluid removed with her peritoneal dialysis..med Laboratory Tests 12/27/19 12/27/19 00:51 05:10 WBC 9.0 Hgb 10.0 L Hct 31.0 L MCV 85.9 Plt Count 236 Sodium 136 Potassium 3.7 Chloride 97 Carbon Dioxide 23 Anion Gap 16.0 BUN 33 H Creatinine 6.8 H* Glucose 111 H Uric Acid 5.4 Calcium 10.0 Phosphorus 3.6 Magnesium 1.9 Total Bilirubin 0.2 Direct Bilirubin < 0.2 GGT 14 AST 26 ALT 22 Alkaline Phosphatase 102 Lactate Dehydrogenase 223 Total Protein 5.4 L Albumin 2.8 L Medications were reviewed. I would recommend stopping the Requip due to hypotension being a common side effect and the lack of safe prescribing information and dialysis patients. This patient suffers from a syndrome I could best described as "I need a pill for every ill"... We need to avoid this at all costs in dialysis patient with failure to thrive and a definite propensity to overdo it with medications. Pertinent ROS: N/V better Additional PMFSH (Level 3 Only): N/A Objective - Vital Signs Vital signs: Vital Signs Temp Pulse Resp BP BP BP Pulse Ox 12/27/19 16:00 36.6 C 117 H 20 98/56 96 12/27/19 12:00 36.8 C 14 97/60 97 12/27/19 10:00 36.5 C 110 H 14 98/60 97 12/27/19 09:34 36.6 C 93/56 12/27/19 08:00 36.6 C 111 H 17 93/56 96 12/27/19 06:00 36.3 C 18 119/62 96 12/27/19 04:00 36.2 C 20 115/59 93 12/27/19 03:30 36.2 C 20 115/59 93 12/26/19 23:33 36.6 C 16 91/55 93 12/26/19 22:00 36.2 C 18 118/64 96 12/26/19 20:26 36.9 C 115/59 12/26/19 20:00 36.8 C 18 94/53 94 12/26/19 18:00 36.9 C 105 H 15 115/59 97 Intake and Output 12/27/19 12/27/19 12/27/19 05:59 13:59 21:59 Intake Total 120 240 350 Output Total 250 Balance -130 240 350 Intake: Nourishment/Supplement quantity 350 (ml) Oral 120 240 Output: Void Amount 50 Urine/Stool Mix 200 Other: Meal Breakfast Percent of Meal Consumed 50% Feeding Ability Independent Stool Size Moderate Moderate Stool Color Brown Brown Stool Consistency Loose Soft Formed # Bowel Movements 1 # of times incontinent of 1 Bowels Intake & Output: Intake & Output 12/27/19 12/27/19 12/27/19 05:59 13:59 21:59 Intake Total 120 240 350 Output Total 250 Balance -130 240 350 Intake: Nourishment/Supplement quantity 350 (ml) Oral 120 240 Output: Void Amount 50 Urine/Stool Mix 200 Other: Meal Breakfast Percent of Meal Consumed 50% Feeding Ability Independent Stool Size Moderate Moderate Stool Color Brown Brown Stool Consistency Loose Soft Formed # Bowel Movements 1 # of times incontinent of 1 Bowels - General Appearance General appearance: well-developed, well-nourished, appears started age, anxious (Is anxious and more alert and interactive) EENT: PERRL, mucous membranes moist Neck: no JVD, no thyromegaly, no carotid bruit Respiratory: no kyphosis, no scoliosis, rhonchi (At the left base) Cardiology: no murmurs, no rub, no gallops, normal S1, normal S2 Gastrointestinal: normoactive bowel sounds, no tenderness, no guarding, no organomegaly Integumentary: no rash, warm and dry Neurologic: no focal deficit, no asterixis, alert and oriented x3, strength 5/5, CN 3-12 intact Musculoskeletal: no deformities, no erythema, no cyanosis, no clubbing Psychiatric: mood/affect appropriate - Lab 12/27/19 00:51 12/27/19 14:00 Most recent lab results Calcium 10.0 mg/dl (8.6-10.4) 12/27/19 05:10 Phosphorus 3.6 mg/dL (2.7-4.5) 12/27/19 05:10 Magnesium 1.9 mg/dL (1.6-2.5) 12/27/19 05:10 - Imaging Kidney/bladder ultrasound: image reviewed (Barium swallow as noted yesterday) - Allied health notes Allied health notes reviewed: nursing (Long discussion with peritoneal dialysis nurse) Assessment and Plan (1) Hypotension, unspecified 1. No signs of infection 2. Suspect PD fluid losses and failure to keep up with po intake because on N/V have led to volume contraction 3. Decrease PD deleviery and u/f leading to decrease in PD fluid loss 4. Still has resting tachycardia with a blood pressure barely above 100 5. Do not start the Requip 6. Largely asymptomatic so no specific therapy Status: Acute Priority: High (2) ESRD on peritoneal dialysis Decreased PD delivery (less volume) and I would estimate she daily use as little as 6 L of exchange a day. 2. 4-hour PET to see if we can get a better dialysis prescription 3. Because of her propensity for aspiration and GI dysmotility and a hiatal hernia, she needs smaller fill volumes, smaller exchanges, which will need a longer time on dialysis with more frequent PD exchanges. 4. Transfer to swing bed to continue strengthening before going home, in addition we can optimize her dialysis here once the results of her PET information is available Status: Chronic Priority: Medium (3) Nausea & vomiting 1. Improving. 2. More volume with NS with 20 meq/l KCl 3. Continue reglan but switch to p.o. 4. Agree with diet change, she needs all the nutrition she can stand 5. Reflux precautions including elevating head of bed, no acidic beverages, no caffeine, no meals after 8 PM, 6. Full dose PPI for GERD with reflux and possible aspiration 7. Reglan and will help increase LES tone and decrease reflux and aspiration risk. Status: Acute Priority: High Qualifiers: Vomiting type: unspecified Vomiting Intractability: non-intractable Qualified Code(s): R11.2 - Nausea with vomiting, unspecified (4) Failure to thrive in adult 1. Improved some more today 2. Altman is correcting dehydration, addressing nausea, decrease dialysis delivery, treat tertiary hypoparathyroidism with sensipar, probably will need nuclear parathyroid scan and referral for PTx as an outpatient. 3. Bryant sure the finding in the pelvis is not a mitotic process. It appears new based on prior scanning. According to the patient she has had a hysterec asya but no oophorectomy. Since her Ca1 25 is normal, my index of suspicion for a mitotic process in the pelvis is very low Status: Acute (5) Hiatal hernia with GERD and esophagitis 1. Reflux precautions 2. PPI 3. Smaller fill volumes with NIPD 4. Increase protein intake 5. Avoid medicines that would interfere with her perception of aspiration such as her trazodone, or medications that would reduce her LES tone such as calcium channel blockers. Reglan has the advantage of increasing LES tone in people with GERD and diabetes. Status: Acute Priority: High (6) Aspiration into lower respiratory tract 1. Last month she presented with left lower lobe pneumonia 2. While improved it is still present 3. Suspect she has surreptitious aspiration due to reflux, increased intra- abdominal pressure from peritoneal dialysis fluid, and oropharyngeal muscle weakness or incoordination. 4. Reflux precautions, PPI, Reglan, may benefit from speech pathology and attempt to correct her protein calorie malnutrition Status: Acute Qualifiers: Encounter type: subsequent encounter Qualified Code(s): T17.800D - Unspecified foreign body in other parts of respiratory tract causing asphyxiation, subsequent encounter
[2019-12-27] MEDS ORDERED: MELATONIN 3 MG TABLET PO SCH (21:00)
[2019-12-27] MEDS: SENNOSIDES/DOCUSATE SODIUM 1 TAB TABLET PO SCH (21:04)
[2019-12-27] MEDS: MELATONIN 3 MG TABLET PO SCH ×2 (21:05→22:05)
[2019-12-28] MEDS: 0.9 % SODIUM CHLORIDE 10 ML SYRINGE IV SCH ×3 (05:28→20:06)
[2019-12-28 07:11] LABS: Calcium 9.8 mg/dl (8.6-10.4); Carbon Dioxide 22 mmol/L (22-30); Glucose 95 mg/dL (70-105); Phosphorous 3.2 mg/dL (2.7-4.5)
[2019-12-28 07:24] LABS: Blood Urea Nitrogen 33 mg/dl (8-23); Chloride 95 mmol/L (96-108); Glomerular Filtration Rate 6
[2019-12-28] MEDS: INSULIN LISPRO 1 UNIT/0.01 ML UNIT SQ SCH ×4 (07:27→20:02)
--- NOTE | 2019-12-28 07:56 | Internal Med Progress Note ---
Medical - PN: Subj Patient information: Note initiated : 12/28/19 at 7:53 am Service Date, if different from initiated Date: [] Patient: Ema Vang a 79 y/o F admitted on 12/23/19 for Nausea/Vomiting, Syncope. Chief Complaint: [] Interval history: Ms. Vang is a 79 year old F with a history of HTN, DM, ESRD on PD with recent episode of peritonitis status post treatment on antibiotics. Patient usually follows up with nephrology Katie. She presents to the ER today with worsening confusion, progressive abdominal pain associated nausea vomiting inability to eat or drink that has progressed over the last few days. Symptoms associated with loss of appetite/recurrent retching with every attempt to eat or drink. She feels very dehydrated dizzy Initial work-up in the ER was consistent with urinary tract infection/acute change in mental status /white count 12.7 and elevated calcium at 11.7. Nephrology was consulted and requested admission. Subsequently hospital service consulted At the time evaluation patient is fatigued lethargic and unable to provide a detailed history. She was able to provide answers to most of the review of systems. She denies fever but endorses to loss of appetite/abdominal discomfort generalized exacerbated with stools of vomiting. Denies chest pain, diaphoresis, sick contacts or fever chills. She further denies diarrhea or bloody stool 12/23-patient clinically improved. Status post volume replacement. Improving calcium/sodium. Work-up ongoing per nephrology. On antibiotic coverage. Peritoneal fluid cell counts less than 100. CT abdomen pelvis question masslike rounded atelectasis at the left base. Persistent myoclonic/involuntary movement. MRI brain today. 12/24-patient had a rough night and complained that she was unable to sleep. However involuntary jerking movements per staff is much improved. More alert lucid and able to hold a conversation. Tolerating diet. White count down to 10.8. Stable vitals. ESRD management ongoing per nephrology. Will likely discharge in 24 to 48 hours. Improved nausea vomiting. 12/25-patient was unable to sleep last night. Underwent barium swallow today. Able to swallow with difficulty. Eating breakfast. No overnight fever chills. Ongoing peritoneal dialysis per nephrology. Calcium down to 10.7. Potassium replacement ongoing. Improved nausea vomiting. Hypotension resolved. 12/26-patient doing well. Slept much better last night. Improved electrolytes. Potassium 3.7. Off antibiotics. Nausea resolved. Calcium down to 10. Improved lower extremity recurrent spasm and restlessness on pramipexole. Sodium 136. 5/16-patient complains of insomnia and was not able to sleep all night due to restless legs. Able to swallow soft/liquids. No overnight fever chills. Denies abdominal pain, nausea. Denies fever, calcium down to 9.8. Ongoing peritoneal dialysis per nephrology. All sedative/antihistamines discontinued by nephrology. - Constitutional Vitals: Vital Signs Temp Pulse Resp BP Pulse Ox 98 F 97 H 20 92/49 96 12/28/19 04:00 12/28/19 04:00 12/28/19 04:00 12/28/19 04:00 12/28/19 04:00 Period Temp Pulse Resp BP Sys/Hartman Pulse Ox Last 24 Hr 97.7 F-98.2 F 97-117 14-21 92-98/49-60 94-97 Intake and Output 12/27/19 12/28/19 12/28/19 21:59 05:59 13:59 Intake Total 475 150 100 Balance 475 150 100 Weight 140 lb 6.4 oz Intake & Output: Intake & Output 12/27/19 12/28/19 12/28/19 21:59 05:59 13:59 Intake Total 475 150 100 Balance 475 150 100 Weight 140 lb 6.4 oz Intake: Nourishment/Supplement quantity 350 (ml) Oral 125 150 100 Other: Meal Dinner Percent of Meal Consumed 25% Feeding Ability Independent Urine Color Bright Yellow Urine Odor Normal Stool Size Moderate Small Stool Color Brown Brown Stool Consistency Soft Soft # Voids 1 # Bowel Movements 1 1 General appearance: no acute distress Exam: Anxious but alert and oriented Nonlabored breathing Non-tender abdomen Medical - PN: Obj Da - Labs CBC & Chem 7: 12/27/19 00:51 12/28/19 05:15 Labs: Abnormal Lab Results 12/28/19 12/27/19 12/27/19 05:15 14:00 05:10 WBC Hgb Hct RDW RBC Morphology Polychromasia Anisocytosis Chloride 95 L Carbon Dioxide Anion Gap 17.0 H BUN 33 H 31 H 33 H Creatinine 6.5 H* 6.7 H* 6.8 H* Glucose 137 H 111 H Calcium Magnesium Lactate Dehydrogenase Total Protein 5.4 L Albumin 3.0 L 2.8 L Albumin (PEP) Triglycerides Urine Protein Urine Occult Blood Ur Leukocyte Esterase Urine RBC Urine WBC Ur Squamous Epith Cells Urine Bacteria 12/27/19 12/26/19 12/26/19 00:51 05:45 05:45 WBC 12.5 H Hgb 10.0 L 10.7 L Hct 31.0 L 33.2 L RDW 15.5 H 15.1 H RBC Morphology Abnorm A Polychromasia Few A Anisocytosis Few A Chloride 94 L Carbon Dioxide 21 L Anion Gap 19.0 H BUN 35 H Creatinine 7.0 H* Glucose 134 H Calcium 10.7 H Magnesium Lactate Dehydrogenase 254 H Total Protein Albumin Albumin (PEP) Triglycerides 201 H Urine Protein Urine Occult Blood Ur Leukocyte Esterase Urine RBC Urine WBC Ur Squamous Epith Cells Urine Bacteria 12/25/19 12/25/19 12/24/19 13:01 05:20 05:20 WBC Hgb Hct RDW RBC Morphology Polychromasia Anisocytosis Chloride 93 L Carbon Dioxide 20 L Anion Gap 20.0 H BUN 39 H Creatinine 7.3 H* Glucose Calcium 11.0 H Magnesium 1.5 L Lactate Dehydrogenase Total Protein Albumin 3.1 L Albumin (PEP) 2.59 L Triglycerides 175 H Urine Protein 100 A Urine Occult Blood 0.2 A Ur Leukocyte Esterase 250 A Urine RBC 26 H Urine WBC 74 H Ur Squamous Epith Cells 49 H Urine Bacteria Few A Meds: Medications Acetaminophen (Tylenol) 650 mg PO Q4-6HP PRN; Protocol PRN Reason: Per Pain Protocol/Fever > 101 Last Admin: 12/27/19 21:04 Dose: 650 mg Documented by: Bisacodyl (Dulcolax) 10 mg CA Q2-3DAYS PRN PRN Reason: Constipation Cinacalcet (Sensipar) 90 mg PO [facility] Dextrose (Dextrose 50%) 0 ml IV UD PRN PRN Reason: Hypoglycemia Diagnostic Test (Pha) (Accu-Chek) 1 each FS ACHS [facility] Last Admin: 12/28/19 07:25 Dose: 1 each Documented by: Docusate Sodium (Colace) 100 mg PO BID [facility] Last Admin: 12/27/19 21:04 Dose: Not Given Documented by: Glucose (Insta-Glucose) 15 gm PO PRN PRN PRN Reason: Hypoglycemia Heparin Sodium (Porcine) (Heparin) 5,000 unit SQ Q12 [facility] Last Admin: 12/27/19 21:06 Dose: 5,000 unit Documented by: Insulin Human Lispro (Humalog) 0 unit SQ ACHS [facility]; Protocol Last Admin: 12/28/19 07:27 Dose: Not Given Documented by: Melatonin (Melatonin 3mg Tablet) 9 mg PO HSMR [facility] Last Admin: 12/27/19 22:05 Dose: 9 mg Documented by: Polyethylene Glycol (Miralax) 17 gm PO DAILYP PRN PRN Reason: Constipation Senna/Docusate Sodium (Senna Plus Tablet) 1 tab PO HS [facility] Last Admin: 12/27/19 21:04 Dose: Not Given Documented by: Sevelamer Carbonate (Renvela) 800 mg PO TIDCC [facility] Last Admin: 12/27/19 16:34 Dose: 800 mg Documented by: Sodium Chloride (Saline Flush) 10 ml IV Q8 [facility] Last Admin: 12/28/19 05:28 Dose: 10 ml Documented by: Throat Lozenges (Cepacol) 1 lozenge PO DAILYP PRN PRN Reason: Sore Throat Medical - PN: A/P - Time Spent With Patient Total time spent is greater than 50% in coordination of care (as documented) at patient's floor/unit and/or counseling patient: 15 - 24 minutes (1) Nausea & vomiting Status: Acute Assessment and plan: Issues management nephrology service * Hypercalcemia calcium improved to 9.8 managed per nephrology * Hypokalemia resolved with replacement * ESRD on PD managed per nephrology * Hypovolemic hyponatremia-up from 129-> 136. * Hypertension home dose amlodipine Medical issues managed by hospital service * Esophageal stricture on barium-GI consult for evaluation dysphagia as outpatient. * Dysphagia to solids-esophageal stricture on barium swallow. GI consult as outpatient. speech therapy eval for dietary modifications * Abdominal pain, clinically resolved. Negative abdominal CT. No evidence of SBP(normal peritoneal fluid cell count) * Acute change in mental status -back at baseline. * Recurrent spasms/restless leg -responded to Requip but nephrology recommended discontinuation of medication, MRI brain 12.9 mm benign meningioma left frontal lobe but no acute process. * Complicated UTI-now off antibiotics * History of COPD-continue home bronchodilators * Hyperlipidemia -Continue statin * DM type II continue basal prandial insulin/CC diet * GERD continue PPI * Full code * Prophylax Heparin Plan * ESRD/electrolyte management per nephrology * Outpatient GI consult for esophageal stricture and dysphagia * Continue diet recommendations per ST * Pre-existing medical condition management as above * PT OT nutrition support * Discharge planning likely swing bed in 24 to 48 hours Current Visit: Yes Medical - PN: Qual - VTE Deep Vein Thrombosis/Pulmonary Embolism Present on Admission: No
[2019-12-28] MEDS: SEVELAMER 800 MG TABLET PO SCH ×3 (09:29→16:42)
[2019-12-28] MEDS: CINACALCET 30 MG TABLET PO SCH (09:30)
[2019-12-28] MEDS: DOCUSATE SODIUM 100 MG CAPSULE PO SCH ×3 (09:30→20:04)
[2019-12-28] MEDS: HEPARIN 5,000 UNIT/ML VIAL SQ SCH ×2 (09:33→20:02)
--- NOTE | 2019-12-28 13:58 | Nephrology Progress Note ---
Subjective Patient information: Note initiated : 12/28/19 at 1:49 pm Service Date, if different from initiated Date: [] Patient: Ema Vang 79 y/o F admitted on 12/23/19 for Nausea/Vomiting, Syncope. Chief Complaint: [] Principal diagnosis: Failure to thrive Interval history: Poor sleep due to either restless leg, myoclonus or leg cramping. Melatonin no help she swears by her [employer] Natural Relief tablets. Will go buy her some to take 2 tabs BID. 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 Im pleased with the improved clearances by more frequent, rapid exchanges made possible by the fact that she is a rapid equilibrator across he peritoneal membrane. See the improvement in the serum Ca (and presumably mental status and N/V) by using smaller more frequent dialysis exchanges. Selected Entries 12/28/19 08:00 12/28/19 08:32 Temperature 36.7 C Blood Pressure 92/49 Pulse Oximetry (%) 97 Oxygen Delivery Method Room Air Laboratory Tests 12/27/19 12/28/19 00:51 05:15 WBC 9.0 Hgb 10.0 L Hct 31.0 L MCV 85.9 Plt Count 236 Sodium 134 Potassium 3.5 Chloride 95 L Carbon Dioxide 22 Anion Gap 17.0 H BUN 33 H Creatinine 6.5 H* Glucose 95 Calcium 9.8 Phosphorus 3.2 Albumin 3.0 L Laboratory Tests Data for PET 12/27/19 12/27/19 12/27/19 14:00 14:00 14:00 BUN 31 H Creatinine 6.7 H* Glucose 137 H Fluid Urea Nitrogen 27 Fluid Creatinine 4.7 Peritoneal Albumin Peritoneal Glucose 804 Pertinent ROS: N/A except jumps legs at NOC Objective - Vital Signs Vital signs: Vital Signs Temp Pulse Resp BP BP Pulse Ox 12/28/19 08:32 36.7 C 92/49 12/28/19 08:00 36.7 C 107 H 18 95/59 97 12/28/19 04:00 36.6 C 97 H 20 92/49 96 12/27/19 23:33 36.5 C 108 H 21 97/56 94 12/27/19 20:09 36.7 C 95/54 12/27/19 19:04 36.7 C 112 H 21 95/54 96 12/27/19 16:00 36.6 C 117 H 20 98/56 96 Intake and Output 12/27/19 12/28/19 12/28/19 21:59 05:59 13:59 Intake Total 475 150 100 Balance 475 150 100 Intake: Nourishment/Supplement quantity 350 (ml) Oral 125 150 100 Other: Meal Dinner Percent of Meal Consumed 25% Feeding Ability Independent Urine Color Bright Yellow Urine Odor Normal Stool Size Moderate Small Stool Color Brown Brown Stool Consistency Soft Soft # Voids 1 # Bowel Movements 1 1 Weight 63.684 kg Intake & Output: Intake & Output 12/27/19 12/28/19 12/28/19 21:59 05:59 13:59 Intake Total 475 150 100 Balance 475 150 100 Weight 63.684 kg Intake: Nourishment/Supplement quantity 350 (ml) Oral 125 150 100 Other: Meal Dinner Percent of Meal Consumed 25% Feeding Ability Independent Urine Color Bright Yellow Urine Odor Normal Stool Size Moderate Small Stool Color Brown Brown Stool Consistency Soft Soft # Voids 1 # Bowel Movements 1 1 - General Appearance General appearance: well-developed, well-nourished, appears started age, anxious EENT: ATNC, PERRL Neck: no JVD, no thyromegaly, no carotid bruit, supple Respiratory: no kyphosis, no scoliosis Cardiology: no murmurs, no rub, no gallops, no edema, regular rate, regular rhythm, normal S1, normal S2 Gastrointestinal: normoactive bowel sounds, no tenderness, no masses Integumentary: no rash, warm and dry Neurologic: no focal deficit, no asterixis, alert and oriented x3, strength 5/5, CN 3-12 intact Musculoskeletal: no deformities, no cyanosis, no clubbing Psychiatric: mood/affect appropriate, agitated (About her leg and cramping issues), cooperative - Lab 12/27/19 00:51 12/28/19 05:15 Most recent lab results Calcium 9.8 mg/dl (8.6-10.4) 12/28/19 05:15 Phosphorus 3.2 mg/dL (2.7-4.5) 12/28/19 05:15 Magnesium 1.9 mg/dL (1.6-2.5) 05/15/20 05:10 Assessment and Plan (1) Hypotension, unspecified 1. No signs of infection 2. Suspect PD fluid losses and failure to keep up with po intake because on N/V have led to volume contraction 3. Decrease PD deleviery and u/f leading to decrease in PD fluid loss 4. Still has resting tachycardia with a blood pressure barely above 100 5. Do not start the Requip 6. Largely asymptomatic so no specific therapy Status: Acute Priority: High (2) ESRD on peritoneal dialysis Decreased PD delivery (less volume) and I would estimate she daily use as little as 6 L of exchange a day. 2. 4-hour PET to see if we can get a better dialysis prescription 3. Because of her propensity for aspiration and GI dysmotility and a hiatal hernia, she needs smaller fill volumes, smaller exchanges, which will need a longer time on dialysis with more frequent PD exchanges. 4. Transfer to swing bed to continue strengthening before going home, in addition we can optimize her dialysis here once the results of her PET information is available Status: Chronic Priority: Medium (3) Nausea & vomiting 1. Improving. 2. More volume with NS with 20 meq/l KCl 3. Continue reglan but switch to p.o. 4. Agree with diet change, she needs all the nutrition she can stand 5. Reflux precautions including elevating head of bed, no acidic beverages, no caffeine, no meals after 8 PM, 6. Full dose PPI for GERD with reflux and possible aspiration 7. Reglan and will help increase LES tone and decrease reflux and aspiration risk. Status: Acute Priority: High Qualifiers: Vomiting type: unspecified Vomiting Intractability: non-intractable Qualified Code(s): R11.2 - Nausea with vomiting, unspecified (4) Failure to thrive in adult 1. Improved some more today 2. Altman is correcting dehydration, addressing nausea, decrease dialysis delivery, treat tertiary hypoparathyroidism with sensipar, probably will need nuclear parathyroid scan and referral for PTx as an outpatient. 3. Bryant sure the finding in the pelvis is not a mitotic process. It appears new based on prior scanning. According to the patient she has had a hysterectomy but no oophorectomy. Since her Ca1 25 is normal, my index of suspicion for a mitotic process in the pelvis is very low Status: Acute (5) Hiatal hernia with GERD and esophagitis 1. Reflux precautions 2. PPI 3. Smaller fill volumes with NIPD 4. Increase protein intake 5. Avoid medicines that would interfere with her perception of aspiration such as her trazodone, or medications that would reduce her LES tone such as calcium channel blockers. Reglan has the advantage of increasing LES tone in people with GERD and diabetes. Status: Acute Priority: High (6) Aspiration into lower respiratory tract 1. Last month she presented with left lower lobe pneumonia 2. While improved it is still present 3. Suspect she has surreptitious aspiration due to reflux, increased intra- abdominal pressure from peritoneal dialysis fluid, and oropharyngeal muscle weakness or incoordination. 4. Reflux precautions, PPI, Reglan, may benefit from speech pathology and attempt to correct her protein calorie malnutrition Status: Acute Qualifiers: Encounter type: subsequent encounter Qualified Code(s): T17.800D - Unspecified foreign body in other parts of respiratory tract causing asphyxiat ion, subsequent encounter
[2019-12-28] MEDS: [UNRECOGNIZED DRUG - OTHER] PO SCH ×2 (15:07→20:03)
[2019-12-28] MEDS ORDERED: METOCLOPRAMIDE 10 MG/2 ML VIAL IV PRN (18:48)
[2019-12-28] MEDS ORDERED: METOCLOPRAMIDE 10 MG TABLET ONE (19:57)
[2019-12-28] MEDS: MELATONIN 3 MG TABLET PO SCH ×2 (20:03→21:26)
[2019-12-28] MEDS: SENNOSIDES/DOCUSATE SODIUM 1 TAB TABLET PO SCH (20:05)
[2019-12-28] MEDS: METOCLOPRAMIDE 10 MG TABLET PO SCH (20:47)
[2019-12-28] MEDS ORDERED: METOCLOPRAMIDE 5 MG TABLET PO SCH (21:00)
[2019-12-29] MEDS: 0.9 % SODIUM CHLORIDE 10 ML SYRINGE IV SCH ×3 (05:07→20:48)
--- NOTE | 2019-12-29 07:57 | Internal Med Progress Note ---
Medical - PN: Subj Patient information: Note initiated : 12/29/19 at 7:54 am Service Date, if different from initiated Date: [] Patient: Ema Vang a 79 y/o F admitted on 12/23/19 for Nausea/Vomiting, Syncope. Chief Complaint: [] Interval history: Ms. Vang is a 79 year old F with a history of HTN, DM, ESRD on PD with recent episode of peritonitis status post treatment on antibiotics. Patient usually follows up with nephrology Katie. She presents to the ER today with worsening confusion, progressive abdominal pain associated nausea vomiting inability to eat or drink that has progressed over the last few days. Symptoms associated with loss of appetite/recurrent retching with every attempt to eat or drink. She feels very dehydrated dizzy Initial work-up in the ER was consistent with urinary tract infection/acute change in mental status /white count 12.7 and elevated calcium at 11.7. Nephrology was consulted and requested admission. Subsequently hospital service consulted At the time evaluation patient is fatigued lethargic and unable to provide a detailed history. She was able to provide answers to most of the review of systems. She denies fever but endorses to loss of appetite/abdominal discomfort generalized exacerbated with stools of vomiting. Denies chest pain, diaphoresis, sick contacts or fever chills. She further denies diarrhea or bloody stool 12/23-patient clinically improved. Status post volume replacement. Improving calcium/sodium. Work-up ongoing per nephrology. On antibiotic coverage. Peritoneal fluid cell counts less than 100. CT abdomen pelvis question masslike rounded atelectasis at the left base. Persistent myoclonic/involuntary movement. MRI brain today. 12/24-patient had a rough night and complained that she was unable to sleep. However involuntary jerking movements per staff is much improved. More alert lucid and able to hold a conversation. Tolerating diet. White count down to 10.8. Stable vitals. ESRD management ongoing per nephrology. Will likely discharge in 24 to 48 hours. Improved nausea vomiting. 12/25-patient was unable to sleep last night. Underwent barium swallow today. Able to swallow with difficulty. Eating breakfast. No overnight fever chills. Ongoing peritoneal dialysis per nephrology. Calcium down to 10.7. Potassium replacement ongoing. Improved nausea vomiting. Hypotension resolved. 12/26-patient doing well. Slept much better last night. Improved electrolytes. Potassium 3.7. Off antibiotics. Nausea resolved. Calcium down to 10. Improved lower extremity recurrent spasm and restlessness on pramipexole. Sodium 136. 12/27-patient complains of insomnia and was not able to sleep all night due to restless legs. Able to swallow soft/liquids. No overnight fever chills. Denies abdominal pain, nausea. Denies fever, calcium down to 9.8. Ongoing peritoneal dialysis per nephrology. All sedative/antihistamines discontinued by nephrology. 12/28-doing well. No overnight events. No concerns per staff. Dysphagia nausea vomiting. Restless legs much improved. Able to sleep at night. Discharge to swing bed in 24 hours. Continue peritoneal dialysis. PT OT - Constitutional Vitals: Vital Signs Temp Pulse Resp BP Pulse Ox 97.3 F 114 H 18 86/51 95 12/29/19 07:26 12/29/19 01:57 12/29/19 01:57 12/29/19 07:26 12/29/19 01:57 Period Temp Pulse Resp BP Sys/Hartman Pulse Ox Last 24 Hr 97.3 F-98.0 F 107-114 18-18 86-95/49-59 95-98 Intake and Output 12/28/19 12/29/19 12/29/19 21:59 05:59 13:59 Intake Total 320 350 Balance 320 350 Weight 136 lb 9.6 oz Intake & Output: Intake & Output 12/28/19 12/29/19 12/29/19 21:59 05:59 13:59 Intake Total 320 350 Balance 320 350 Weight 136 lb 9.6 oz Intake: Oral 320 350 Other: Meal Dinner Percent of Meal Consumed 50% Feeding Ability Independent Urine Color Pale Urine Odor Normal Stool Size Small Moderate Small Stool Color Brown Brown Brown Stool Consistency Loose Soft Soft # Voids 2 # Bowel Movements 1 1 1 # of times incontinent of 1 Bowels General appearance: no acute distress Exam: Alert oriented Minimal anxiety Nonlabored breathing PD catheter in place Medical - PN: Obj Da - Labs CBC & Chem 7: 12/27/19 00:51 12/28/19 05:15 Labs: Abnormal Lab Results 12/28/19 12/27/19 12/27/19 05:15 14:00 05:10 Hgb Hct RDW RBC Morphology Polychromasia Anisocytosis Chloride 95 L Anion Gap 17.0 H BUN 33 H 31 H 33 H Creatinine 6.5 H* 6.7 H* 6.8 H* Glucose 137 H 111 H Total Protein 5.4 L Albumin 3.0 L 2.8 L Albumin (PEP) 12/27/19 12/24/19 00:51 05:20 Hgb 10.0 L Hct 31.0 L RDW 15.5 H RBC Morphology Abnorm A Polychromasia Few A Anisocytosis Few A Chloride Anion Gap BUN Creatinine Glucose Total Protein Albumin Albumin (PEP) 2.59 L Meds: Medications Acetaminophen (Tylenol) 650 mg PO Q4-6HP PRN; Protocol PRN Reason: Per Pain Protocol/Fever > 101 Last Admin: 12/27/19 21:04 Dose: 650 mg Documented by: Bisacodyl (Dulcolax) 10 mg ND Q2-3DAYS PRN PRN Reason: Constipation Cinacalcet (Sensipar) 90 mg PO [facility] Last Admin: 12/28/19 09:30 Dose: 90 mg Documented by: Dextrose (Dextrose 50%) 0 ml IV UD PRN PRN Reason: Hypoglycemia Diagnostic Test (Pha) (Accu-Chek) 1 each FS [facility] Last Admin: 12/28/19 20:01 Dose: 1 each Documented by: Docusate Sodium (Colace) 100 mg PO BID [facility] Last Admin: 12/28/19 20:04 Dose: Not Given Documented by: Glucose (Insta-Glucose) 15 gm PO PRN PRN PRN Reason: Hypoglycemia Heparin Sodium (Porcine) (Heparin) 5,000 unit SQ Q12 [facility] Last Admin: 12/28/19 20:02 Dose: 5,000 unit Documented by: Insulin Human Lispro (Humalog) 0 unit SQ [facility]; Protocol Last Admin: 12/28/19 20:02 Dose: Not Given Documented by: Melatonin (Melatonin 3mg Tablet) 9 mg PO [facility] Last Admin: 12/28/19 21:26 Dose: 9 mg Documented by: Metoclopramide HCl (Reglan) 5 mg IV Q6HP PRN PRN Reason: Nausea And Vomiting Metoclopramide HCl (Reglan) 5 mg PO [facility] Last Admin: 12/28/19 20:47 Dose: Not Given Documented by: Pantoprazole Sodium (Protonix) 40 mg PO [facility] Natural Relief Restful Legs Tablets 2 dose PO BID [facility] Last Admin: 12/28/19 20:03 Dose: 2 dose Documented by: Polyethylene Glycol (Miralax) 17 gm PO DAILYP PRN PRN Reason: Constipation Senna/Docusate Sodium (Senna Plus Tablet) 1 tab PO HS [facility] Last Admin: 12/28/19 20:05 Dose: Not Given Documented by: Sevelamer Carbonate (Renvela) 800 mg PO TIDCC [facility] Last Admin: 12/28/19 16:42 Dose: 800 mg Documented by: Sodium Chloride (Saline Flush) 10 ml IV Q8 [facility] Last Admin: 12/29/19 05:07 Dose: 10 ml Documented by: Throat Lozenges (Cepacol) 1 lozenge PO DAILYP PRN PRN Reason: Sore Throat Medical - PN: A/P - Time Spent With Patient Total time spent is greater than 50% in coordination of care (as documented) at patient's floor/unit and/or counseling patient: 15 - 24 minutes (1) Nausea & vomiting Status: Acute Assessment and plan: Issues management nephrology service * ESRD on PD managed per nephrology * Hypovolemic hyponatremia-up from 129-> 136. * Hypertension home dose amlodipine * Hypercalcemia resolved. * Hypokalemia resolved Medical issues managed by hospital service * Esophageal stricture on barium-tolerating diet. Discharge improved. Will require outpatient GI consult for upper endoscopy dysphagia evaluation with Dr. Quiroz. * Abdominal pain, clinically resolved. Negative abdominal CT. No evidence of SBP(normal peritoneal fluid cell count) * Acute change in mental status -back at baseline. * Recurrent spasms/restless leg -improved and OTC medication * Acute cystitis-resolved, off antibiotics * History of COPD-continue home bronchodilators * Hyperlipidemia -Continue statin * DM type II continue basal prandial insulin/CC diet * GERD continue PPI * Full code * Prophylax Heparin Plan * ESRD/electrolyte management per nephrology * Outpatient GI consult for esophageal stricture and dysphagia in 2 weeks * Continue diet recommendations per ST * Pre-existing medical condition management as above * PT OT nutrition support * Discharge to swing bed in 24 hours Current Visit: Yes Medical - PN: Qual - VTE Deep Vein Thrombosis/Pulmonary Embolism Present on Admission: No
[2019-12-29] MEDS: INSULIN LISPRO 1 UNIT/0.01 ML UNIT SQ SCH ×4 (08:00→20:48)
[2019-12-29] MEDS: PANTOPRAZOLE 40 MG TABLET PO SCH (08:01)
[2019-12-29] MEDS: METOCLOPRAMIDE 10 MG TABLET PO SCH ×4 (08:02→20:42)
[2019-12-29] MEDS: SEVELAMER 800 MG TABLET PO SCH ×3 (08:03→16:48)
[2019-12-29] MEDS: CINACALCET 30 MG TABLET PO SCH (08:03)
[2019-12-29] MEDS: DOCUSATE SODIUM 100 MG CAPSULE PO SCH ×2 (08:05→20:38)
[2019-12-29] MEDS: [UNRECOGNIZED DRUG - OTHER] PO SCH ×2 (08:09→20:42)
[2019-12-29] MEDS: HEPARIN 5,000 UNIT/ML VIAL SQ SCH ×2 (08:26→20:42)
--- NOTE | 2019-12-29 16:00 | Nephrology Progress Note ---
Subjective Patient information: Note initiated : 12/29/19 at 3:56 pm Service Date, if different from initiated Date: [] Patient: Ema Vang 79 y/o F admitted on 12/23/19 for Nausea/Vomiting, Syncope. Chief Complaint: [] Principal diagnosis: Failure to thrive Interval history: Seen and examined. Good day. Slept well with OTC preparation. Selected Entries 12/29/19 14:55 Temperature 36.4 C Pulse Rate [Monitor Reading] 98 H Respiratory Rate 18 Blood Pressure [Right Arm] 84/51 Blood Pressure Mean [Right Arm] 62 Blood Pressure Position [Right Arm] Sitting Pulse Oximetry (%) 97 Oxygen Delivery Method Room Air No labs today. Continue NITPD with low fexchange volumes and increased exchange frequency to makimize clearance without increasing intra-abdominal pressure to minimize her GI complaints...seem to be working. STOP polypharmacy and have the help inforce this. No trazadone, atgivan or requip In seems her over the counter homeopathic mucle cramping and restless leg concoction wors as well as anything without sedation. Melatonin for sleep. Correct Hypercalcemia which appears to be due to 3 HPT Dialysis cript change High dose sensipar 90 mg a day Renvella for hyperparathyroidism PTHi and Ca/PO4 trended Only special lab pending is the PTH related peptide which will be unremarkable, no evidence of granulomatus Dx Pertinent ROS: Neg Additional PMFSH (Level 3 Only): NTA Objective - Vital Signs Vital signs: Vital Signs Temp Pulse Resp BP BP Pulse Ox 12/29/19 14:55 36.4 C 98 H 18 84/51 97 12/29/19 08:00 36.4 C 111 H 18 96/53 94 12/29/19 07:26 36.3 C 86/51 12/29/19 01:57 36.3 C 114 H 18 86/51 95 12/28/19 19:18 36.7 C 95/59 12/28/19 18:36 36.4 C 107 H 18 92/53 98 Intake and Output 12/29/19 12/29/19 12/29/19 05:59 13:59 21:59 Intake Total 350 330 Output Total 3 Balance 350 327 Intake: Nourishment/Supplement quantity 120 (ml) Oral 350 210 Output: Void Amount 3 Other: Meal Breakfast Percent of Meal Consumed 100% Feeding Ability Independent Urine Appearance Clear Urine Color Pale Urine Odor Normal Stool Size Moderate Small Stool Color Brown Brown Stool Consistency Soft Soft # Voids 1 # Bowel Movements 1 1 # of times incontinent of 1 Bowels Intake & Output: Intake & Output 12/29/19 12/29/19 12/29/19 05:59 13:59 21:59 Intake Total 350 330 Output Total 3 Balance 350 327 Intake: Nourishment/Supplement quantity 120 (ml) Oral 350 210 Output: Void Amount 3 Other: Meal Breakfast Percent of Meal Consumed 100% Feeding Ability Independent Urine Appearance Clear Urine Color Pale Urine Odor Normal Stool Size Moderate Small Stool Color Brown Brown Stool Consistency Soft Soft # Voids 1 # Bowel Movements 1 1 # of times incontinent of 1 Bowels - General Appearance General appearance: well-developed, well-nourished, appears started age EENT: ATNC, PERRL, mucous membranes moist Neck: no JVD, no thyromegaly, no carotid bruit, supple Respiratory: no kyphosis, no scoliosis Cardiology: no murmurs, no rub, no gallops, no edema, regular rate, regular rhythm, normal S1, normal S2 Gastrointestinal: normoactive bowel sounds, no tenderness, no guarding, no organomegaly, no masses Integumentary: no rash, warm and dry Neurologic: no focal deficit, no asterixis, alert and oriented x3, strength 5/5 (Better at 4+/5), CN 3-12 intact - Lab 12/27/19 00:51 12/28/19 05:15 Most recent lab results Calcium 9.8 mg/dl (8.6-10.4) 12/28/19 05:15 Phosphorus 3.2 mg/dL (2.7-4.5) 12/28/19 05:15 Magnesium 1.9 mg/dL (1.6-2.5) 12/27/19 05:10 - Allied health notes Allied health notes reviewed: nursing (Explained details on 24 CrCl and TP collection starting at 0800 12/30/2019) Assessment and Plan (1) Hypotension, unspecified 1. No signs of infection 2. Suspect PD fluid losses and failure to keep up with po intake because on N/V have led to volume contraction 3. Decrease PD deleviery and u/f leading to decrease in PD fluid loss 4. Still has resting tachycardia with a blood pressure barely above 100 5. Do not start the Requip 6. Largely asymptomatic so no specific therapy Status: Acute Priority: High (2) ESRD on peritoneal dialysis Decreased PD delivery (less volume) and I would estimate she daily use as little as 6 L of exchange a day. 2. 4-hour PET to see if we can get a better dialysis prescription 3. Because of her propensity for aspiration and GI dysmotility and a hiatal hernia, she needs smaller fill volumes, smaller exchanges, which will need a longer time on dialysis with more frequent PD exchanges. 4. Transfer to swing bed to continue strengthening before going home, in addition we can optimize her dialysis here once the results of her PET informa tion is available Status: Chronic Priority: Medium (3) Nausea & vomiting 1. Improving. 2. More volume with NS with 20 meq/l KCl 3. Continue reglan but switch to p.o. 4. Agree with diet change, she needs all the nutrition she can stand 5. Reflux precautions including elevating head of bed, no acidic beverages, no caffeine, no meals after 8 PM, 6. Full dose PPI for GERD with reflux and possible aspiration 7. Reglan and will help increase LES tone and decrease reflux and aspiration risk. Status: Acute Priority: High Qualifiers: Vomiting type: unspecified Vomiting Intractability: non-intractable Qualified Code(s): R11.2 - Nausea with vomiting, unspecified (4) Failure to thrive in adult 1. Improved some more today 2. Altman is correcting dehydration, addressing nausea, decrease dialysis delivery, treat tertiary hypoparathyroidism with sensipar, probably will need nuclear parathyroid scan and referral for PTx as an outpatient. 3. Bryant sure the finding in the pelvis is not a mitotic process. It appears new based on prior scanning. According to the patient she has had a hysterectomy but no oophorectomy. Since her Ca1 25 is normal, my index of suspicion for a mitotic process in the pelvis is very low Status: Acute (5) Hiatal hernia with GERD and esophagitis 1. Reflux precautions 2. PPI 3. Smaller fill volumes with NIPD 4. Increase protein intake 5. Avoid medicines that would interfere with her perception of aspiration such as her trazodone, or medications that would reduce her LES tone such as calcium channel blockers. Reglan has the advantage of increasing LES tone in people with GERD and diabetes. Status: Acute Priority: High (6) Aspiration into lower respiratory tract 1. Last month she presented with left lower lobe pneumonia 2. While improved it is still present 3. Suspect she has surreptitious aspiration due to reflux, increased intra- abdominal pressure from peritoneal dialysis fluid, and oropharyngeal muscle weakness or incoordination. 4. Reflux precautions, PPI, Reglan, may benefit from speech pathology and attempt to correct her protein calorie malnutrition Status: Resolved Qualifiers: Encounter type: subsequent encounter Qualified Code(s): T17.800D - Unspeci fied foreign body in other parts of respiratory tract causing asphyxiation, subsequent encounter - Narrative A/P Narrative: 1. Case discussed with PD nurse and changes to PD made for tonight. 2. Monitor labs and I/O's 3. Sensipar for hyperparathyroidism and reglan for N/V 4. Avoid any medications that can cause drowsiness or altered 5. Continue low volume/high echange number NITPD to alow good clearance with less increase in intra-abdomin pressure 6. Reflux precautions and PPI7. Dr Gonzales to assume renal care tomorrow
[2019-12-29] MEDS: MELATONIN 3 MG TABLET PO SCH ×2 (20:38→20:48)
[2019-12-29] MEDS: SENNOSIDES/DOCUSATE SODIUM 1 TAB TABLET PO SCH (20:39)
[2019-12-30] MEDS: MELATONIN 3 MG TABLET PO SCH (00:18)
[2019-12-30] MEDS: 0.9 % SODIUM CHLORIDE 10 ML SYRINGE IV SCH ×2 (03:56→04:06)
[2019-12-30 06:35] LABS: Basophils # (Auto) 0.05 K/mcL (0.00-0.30); Basophils % (Auto) 0.5 % (0.0-2.0); Eosinophils # (Auto) 0.15 K/mcL (0.00-0.70); Eosinophils % (Auto) 1.5 % (0.0-7.0); Granulocytes % (Auto) 48.5 % (38.0-78.0); Hematocrit 31.4 % (34.1-44.9); Lymphocytes # (Auto) 3.87 K/mcL (1.50-4.80); Lymphocytes % (Auto) 37.7 % (15.5-49.0); Mean Cell Volume 86.7 fL (80.0-100.0); Mean Corpuscular HGB Conc 31.8 g/dL (31.0-36.0); Mean Platelet Volume 9.4 fL (7.4-10.4); Monocytes # (Auto) 1.21 K/mcL (0.10-0.90); Monocytes % (Auto) 11.8 % (1.0-12.0); Platelet Count 260 K/mcL (140-440); RBC 3.62 M/mcL (3.59-5.38); Red Cell Distribution Width 15.7 % (11.5-14.5); WBC 10.3 K/mcL (4.50-11.00)
[2019-12-30 07:03] LABS: Carbon Dioxide 23 mmol/L (22-30); Glucose 87 mg/dL (70-105); Phosphorous 3.2 mg/dL (2.7-4.5)
[2019-12-30 07:20] LABS: Blood Urea Nitrogen 42 mg/dl (8-23); Chloride 93 mmol/L (96-108); Glomerular Filtration Rate 6
[2019-12-30] MEDS: INSULIN LISPRO 1 UNIT/0.01 ML UNIT SQ SCH ×2 (07:41→11:51)
[2019-12-30] MEDS: PANTOPRAZOLE 40 MG TABLET PO SCH (07:46)
[2019-12-30] MEDS: METOCLOPRAMIDE 10 MG TABLET PO SCH ×2 (07:46→12:04)
[2019-12-30] MEDS: CINACALCET 30 MG TABLET PO SCH (07:48)
[2019-12-30] MEDS: SEVELAMER 800 MG TABLET PO SCH ×2 (07:58→12:04)
[2019-12-30] MEDS: [UNRECOGNIZED DRUG - OTHER] PO SCH (08:00)
[2019-12-30] MEDS: DOCUSATE SODIUM 100 MG CAPSULE PO SCH (09:01)
--- NOTE | 2019-12-30 09:02 | Discharge Summary ---
Medical - DS: Prov Patient information: Note initiated : 12/30/19 at 9:00 am Service Date, if different from initiated Date: [] Patient: Ema Vang 79 y/o F admitted on 12/23/19 for Nausea/Vomiting, Syncope. Chief Complaint: [] Date of admission: 12/23/19 19:08 Discharge date: 12/30/19 Primary care physician: Sky Ceja Consults: 12/23/19 Consult to Physician [CONS] Stat Comment: Consulting Provider: Dalton Buck Reason For Exam: Physician to Consult 12/23/19 16:48 Consult to Physician [CONS] Stat Comment: Consulting Provider: Kal Pinto Reason For Exam: Physician to Consult Medical - DS: Meds - Discharge Medications Active and Home Medications: Home Medications atorvastatin 20 mg tablet 20 mg PO QHS #90 tab 02/20/19 [Rx Confirmed 12/24/19 Last Taken 12/21/19 21:00] cholecalciferol (vitamin D3) 50 mcg (2,000 unit) capsule 2,000 unit PO QDAY #30 cap 07/02/19 [Rx Confirmed 12/24/19 Last Taken 12/21/19 08:00] Furosemide [Lasix] 120 mg PO BID 11/19/19 [History Confirmed 12/24/19 Last Taken 12/21/19 16:00] Pantoprazole Sodium 20 mg PO QDAY 11/19/19 [History Confirmed 12/24/19 Last Taken 12/21/19 08:00] Potassium Chloride 40 meq PO DAILY 11/19/19 [History Confirmed 12/24/19 Last Taken 12/21/19 08:00] glipiZIDE [Glucotrol] 2.5 mg PO QAM PRN 11/19/19 [History Confirmed 12/24/19 Last Taken Unknown] glipiZIDE [Glucotrol] 5 mg PO QPM PRN 11/19/19 [History Confirmed 12/23/19 Last Taken Unknown] traZODone HCL [Desyrel] 25 mg PO HS 11/19/19 [History Confirmed 12/24/19 Last Taken 12/22/19 21:00] Lactobacillus Acidophilus [Acidophilus] 100 mg PO DAILYP PRN 12/07/19 [History Confirmed 12/24/19 Last Taken Unknown] Accu-Chek 1 each FS ACHS strip 12/08/19 [Rx Confirmed 12/24/19 Last Taken 12/23/19 22:00] Ferrous Fumarate 650 mg PO DAILY 12/23/19 [History Confirmed 12/24/19 Last Taken 12/21/19 07:30] Ascorbic Acid [Vitamin C] 500 mg PO DAILY 12/24/19 [History Confirmed 12/24/19 Last Taken 12/21/19 08:00] Cinacalcet [Sensipar] 60 mg PO BID 12/24/19 [History Confirmed 12/24/19 Last Taken 12/21/19 21:00] Fluticasone/Salmeterol [Advair Hfa 230-21 Mcg Inhaler] 1 - 2 puff INH Q12HP PRN 12/24/19 [History Confirmed 12/24/19 Last Taken 12/22/19 21:00] Sevelamer HCl 1,600 mg PO TIDAC 12/24/19 [History Confirmed 12/24/19 Last Taken 12/21/19 21:00] Medical - DS: Hosp Hospital Course: Discharge diagnosis * ESRD on PD managed per nephrology. Transitioning to swing bed status * Hypovolemic hyponatremia-normalized 129-> 136. * Hypertension stable on home dose amlodipine * Hypercalcemia resolved now at 9 down from 11.7 . * Hypokalemia -improved. Managed per nephrology. Medical issues managed by hospital service * Esophageal stricture on barium-tolerating diet. Improved dysphagia. Will require outpatient GI consult for upper endoscopy dysphagia evaluation with Dr. Quiroz in 2 to 4 weeks. * Abdominal pain, clinically resolved. Negative abdominal CT. No evidence of SBP(normal peritoneal fluid cell count) * Acute change in mental status -back at baseline. * Recurrent spasms/restless leg -improved on OTC medication * Acute cystitis-resolved, off antibiotics * History of COPD-continue home bronchodilators * Hyperlipidemia -Continue statin * DM type II continue basal prandial insulin/CC diet * GERD continue PPI Brief hospital course Ms. Vang is a 79 year old F with a history of HTN, DM, ESRD on PD with recent episode of peritonitis status post treatment on antibiotics. Patient usually follows up with nephrology Katie. She presents to the ER today with worsening confusion, progressive abdominal pain associated nausea vomiting inability to eat or drink that has progressed over the last few days. Symptoms associated with loss of appetite/recurrent retching with every attempt to eat or drink. She feels very dehydrated dizzy Initial work-up in the ER was consistent with urinary tract infection/acute change in mental status /white count 12.7 and elevated calcium at 11.7. Nephrology was consulted and requested admission. Subsequently hospital service consulted At the time evaluation patient is fatigued lethargic and unable to provide a detailed history. She was able to provide answers to most of the review of systems. She denies fever but endorses to loss of appetite/abdominal discomfort generalized exacerbated with stools of vomiting. Denies chest pain, diaphoresis, sick contacts or fever chills. She further denies diarrhea or bloody stool 12/23-patient clinically improved. Status post volume replacement. Improving calcium/sodium. Work-up ongoing per nephrology. On antibiotic coverage. Peritoneal fluid cell counts less than 100. CT abdomen pelvis question masslike rounded atelectasis at the left base. Persistent myoclonic/involuntary movement. MRI brain today. 12/24-patient had a rough night and complained that she was unable to sleep. However involuntary jerking movements per staff is much improved. More alert lucid and able to hold a conversation. Tolerating diet. White count down to 10.8. Stable vitals. ESRD management ongoing per nephrology. Will likely discharge in 24 to 48 hours. Improved nausea vomiting. 12/25-patient was unable to sleep last night. Underwent barium swallow today. Able to swallow with difficulty. Eating breakfast. No overnight fever chills. Ongoing peritoneal dialysis per nephrology. Calcium down to 10.7. Potassium replacement ongoing. Improved nausea vomiting. Hypotension resolved. 12/26-patient doing well. Slept much better last night. Improved electrolytes. Potassium 3.7. Off antibiotics. Nausea resolved. Calcium down to 10. Improved lower extremity recurrent spasm and restlessness on pramipexole. Sodium 136. 12/27-patient complains of insomnia and was not able to sleep all night due to restless legs. Able to swallow soft/liquids. No overnight fever chills. Denies abdominal pain, nausea. Denies fever, calcium down to 9.8. Ongoing peritoneal dialysis per nephrology. All sedative/antihistamines discontinued by nephrology. 12/28-doing well. No overnight events. No concerns per staff. Dysphagia nausea vomiting. Restless legs much improved. Able to sleep at night. Discharge to swing bed in 24 hours. Continue peritoneal dialysis. PT OT 12/29-patient doing significantly better. Tolerating diet. Persistent RLS and intermittent sleep difficulty. Denies dysphagia, nausea, vomiting. Ongoing peritoneal dialysis per nephrology. Discharging to swing bed for continued posthospitalization rehab peritoneal dialysis training Discharge diagnosis: . - Time Spent with Patient Total time spent providing and/or coordinating discharge services: Greater than 30 minutes Medical - DS: Exam - Constitutional Vitals: Vital Signs Temp Pulse Resp BP BP Pulse Ox 12/30/19 08:11 97.9 F 104/59 12/30/19 08:00 97.9 F 98 H 22 104/59 95 12/30/19 03:54 98.0 F 100 H 18 103/63 96 12/29/19 19:17 98.5 F 88/53 12/29/19 18:47 98.5 F 107 H 18 88/53 96 12/29/19 14:55 97.6 F 98 H 18 84/51 97 Intake and Output 12/29/19 12/30/19 12/30/19 21:59 05:59 13:59 Intake Total 180 600 Output Total 3 200 Balance 177 400 Intake: Nourishment/Supplement quantity 100 (ml) Oral 80 600 Output: Void Amount 3 200 Other: Meal Dinner Percent of Meal Consumed 75% Feeding Ability Independent Urine Appearance Clear Urine Color Pale Urine Odor Normal Stool Size Small Moderate Stool Color Brown Brown Stool Consistency Soft Soft Formed # Voids 1 # Bowel Movements 1 1 Weight 136 lb 4.8 oz Medical - DS: Data Labs on day of discharge: Labs from last 24 hours 12/30/19 12/30/19 12/30/19 05:10 05:10 05:10 WBC 10.3 RBC 3.62 Hgb 10.0 L Hct 31.4 L MCV 86.7 MCH 27.6 MCHC 31.8 RDW 15.7 H Plt Count 260 MPV 9.4 Gran % 48.5 Lymph % (Auto) 37.7 [place] % (Auto) 11.8 Eos % (Auto) 1.5 Baso % (Auto) 0.5 Gran # 4.98 Lymph # (Auto) 3.87 [place] # (Auto) 1.21 H Eos # (Auto) 0.15 Baso # (Auto) 0.05 Sodium 134 Potassium 3.4 Chloride 93 L Carbon Dioxide 23 Anion Gap 18.0 H BUN 42 H Creatinine 6.5 H* GFR Calculation 6 Glucose 87 Calcium 9.0 Phosphorus 3.2 Magnesium 1.6 Albumin 3.0 L PTH Intact 504.8 H Preliminary micro results at discharge 12/23/19 21:00 Anaerobic Culture - Preliminary Peritoneal Dialysis Fluid Aerobic Culture - Preliminary 12/23/19 Unknown Fungal Culture - Preliminary Abdominal Fluid Medical - DS: A/P - Patient/Caregiver Discharge Instructions Activity: as per physical therapy, increase activity as tolerated Diet: Renal - Problem Maintenance (1) Nausea & vomiting Status: Acute Qualifiers: Vomiting type: unspecified Vomiting Intractability: non-intractable Qualified Code(s): R11.2 - Nausea with vomiting, unspecified - Follow up Plan Follow up with: Sky Ceja MD [Primary Care Provider] - Disposition: Xfer As Swing Bed (TS) Prognosis: Fair Rehab Potential: Fair I certify that the patient requires SNF services: Yes Overall status at discharge: patient is progressing back to baseline Medical - DS: Qual - VTE Deep Vein Thrombosis/Pulmonary Embolism Present on Admission: No
[2019-12-30] MEDS: HEPARIN 5,000 UNIT/ML VIAL SQ SCH (09:53)
== END 2019-12-30 11:09 | disposition swing bed (61) | DRG 391 ==
LOC: ED 08:33 → MEDSUR 19:08
PROVIDERS: ADMIT Internal Medicine; ATTEND Internal Medicine

== ENCOUNTER 2020-02-22 20:10 | Inpatient (IN) ==
--- NOTE | 2020-02-22 20:33 | Emergency Department Note ---
Abdominal Pain HPI General Chief Complaint: Abdominal Pain Stated Complaint: stomach pain Time Seen by Provider: 02/22/20 20:17 Source: patient and EMS Mode of arrival: wheelchair Limitations: no limitations History of Present Illness HPI Narrative: Narrative: Patient is a 80-year-old female who comes into the emergency department today after being transferred from [facility] in [place], [place]. Patient has history of end-stage renal disease and is on peritoneal dialysis. Patient has had increasing sharp abdominal pain in her lower abdomen for the last 2 to 3 days. She reports that this slowly has been worsening over time, and is starting to become discomforted in the upper quadrants as well. She had peritoneal dialysis 2 days ago, and reports that the fluid was clear that she had drained out. She has felt chilled but has not had any fevers. She denies any cough, shortness of breath, chest pain, dyspnea on exertion. She denies any nausea, vomiting constipation, melena, or hematochezia. Patient has had a couple episodes of loose brown stool over the last several days. She denies any dysuria. She reports that she does make a small amount of urine still. During her emergency room work-up at [facility] patient had a white count of 16.5 with a left shift and hypokalemia of 2.5. Lactic acid was normal, but patient apparently was tachycardic and hypotensive. She was given a dose of IV vancomycin 1250 mg, 1 g of ceftazidime, 40 mEq of potassium orally as well as 40 mEq IV, ondansetron, 1 L of LR, and IV Tylenol. Patient reports that her pain is controlled at this time. She had a CT scan done that shows probable early colitis and hepatic flexion of the colon. Bilateral extensive cysts replacing the kidneys with peritoneal dialysis catheter in the right lower p ricky. Patient's officer lieutenant, Dr. Gonzales was contacted by the emergency room physician at [facility] who agreed for patient be transferred for further care at [facility]. Related Data Home Medications Medication Instructions Recorded Confirmed furosemide 120 mg PO BID 11/19/19 12/30/19 glipizide 2.5 mg PO QAM PRN 11/19/19 12/30/19 glipizide 5 mg PO QPM PRN 11/19/19 12/30/19 pantoprazole 20 mg PO QDAY 11/19/19 12/30/19 potassium chloride 40 meq PO DAILY 11/19/19 12/30/19 Lactobacillus acidophilus 100 mg PO DAILYP PRN 12/07/19 12/30/19 Ferrous Fumarate 650 mg PO DAILY 12/23/19 12/30/19 ascorbic acid (vitamin C) 500 mg PO DAILY 12/24/19 12/30/19 cinacalcet 60 mg PO BID 12/24/19 12/30/19 fluticasone propion-salmeterol 1 - 2 puff INH Q12HP PRN 12/24/19 12/30/19 sevelamer HCl 1,600 mg PO TIDAC 12/24/19 12/30/19 Previous Rx's Medication Instructions Recorded cholecalciferol (vitamin D3) 50 2,000 unit PO QDAY #30 cap 07/02/19 mcg (2,000 unit) capsule Accu-Chek 1 each FS ACHS strip 12/08/19 ropinirole 0.25 mg tablet 0.25 mg PO HS #14 tab 01/07/20 atorvastatin 20 mg tablet 20 mg PO QHS #90 tab 02/17/20 Allergies Allergy/AdvReac Type Severity Reaction Status Date / Time Penicillins Allergy Mild Hives Verified 12/23/19 08:37 ciprofloxacin [From Cipro] AdvReac Mild "Intoleranc Verified 12/23/19 08:37 e codeine AdvReac Mild Vomiting Verified 12/23/19 08:37 hydrocodone AdvReac Mild Vomiting Verified 12/23/19 08:37 tramadol AdvReac Mild Itching Verified 12/23/19 08:37 Review of Systems ROS ROS Narrative: Narrative: Constitutional: Reports chills; Denies fever Eyes: Denies vision change ENT ED: Denies ear pain and throat pain Cardiovascular: Denies chest pain and palpitations Respiratory: Denies shortness of breath and cough Gastrointestinal: Reports abdominal pain and diarrhea; Denies nausea, vomiting, constipation, hematochezia, melena and hematemesis Genitourinary: Denies dysuria and frequency Musculoskeletal: Denies back pain and joint swelling Integumentary: Denies rash and lesions Neurological: Denies headache, weakness, numbness and dizziness Psychiatric: Denies anxiety and depression Endocrine: Denies fatigue and heat or cold intolerance Hematological/Lymphatic: Denies easy bleeding and easy bruising PFSH Narrative Patient History Narrative: Narrative: Medical/Surgical/Family History All Active Problems (Updated 02/22/20 @ 21:24 by YONIS Lloyd) Sepsis (Acute) Hypotension (Acute) CKD (chronic kidney disease), stage V (Chronic) CHF (congestive heart failure) (Chronic) Hypercalcemia (Chronic) Hyperphosphatemia (Chronic) Nausea & vomiting (Chronic) Hypotension due to hypovolemia (Chronic) Hypotension, unspecified (Chronic) Failure to thrive in adult (Chronic) Hiatal hernia with GERD and esophagitis (Chronic) Aspiration into lower respiratory tract (Chronic) Generalized weakness (Chronic) Diarrhea (Chronic) Hiatal hernia (Chronic) Esophageal ring (Chronic) Gastritis (Chronic) Duodenitis (Chronic) Anemia due to end stage renal disease (Chronic) Secondary hyperparathyroidism of renal origin (Chronic) Hypomagnesemia (Chronic) Acute blood loss anemia (Chronic) Clostridium difficile infection (Chronic) Hypokalemia (Chronic) Metabolic acidosis (Chronic) Muscle spasm (Chronic) Pneumonia (Chronic) ESRD (end stage renal disease) (Chronic) Iron deficiency anemia (Chronic) Abdominal pain (Chronic) Urinary retention (Chronic) ESRD on peritoneal dialysis (Chronic) Diarrhea (Chronic) Vomiting alone (Chronic) Hypertensive renal disease (Chronic) Proteinuria (Chronic) Edema (Chronic) Secondary hyperparathyroidism of renal origin (Chronic) Diabetes mellitus (Chronic) Hx of hysterectomy (Chronic) Hx of esophagogastroduodenoscopy (Chronic) Vitamin D deficiency (Chronic) Sinusitis, chronic (Chronic) Seborrheic keratosis (Chronic) Overweight (Chronic) Osteoporosis (Chronic) Obesity (Chronic) Insomnia (Chronic) Hypertensive heart disease, benign w/chronic kidney disease stage 1-4 (Chronic) Hyperlipidemia (Chronic) Hypertension (Chronic) Gastroesophageal reflux (Chronic) Diabetes mellitus, type II (Chronic) Depression (Chronic) COPD (chronic obstructive pulmonary disease) (Chronic) Anxiety (Chronic) Medical History (Updated 02/22/20 @ 21:24 by YONIS Lloyd) Abdominal pain (Chronic) Anxiety (Chronic) CHF (congestive heart failure) (Chronic) CKD (chronic kidney disease), stage V (Chronic) COPD (chronic obstructive pulmonary disease) (Chronic) Depression (Chronic) Diabetes mellitus (Chronic) On glipizde, BSs controlled per pt monitoring and management deferred to her primary provider Diabetes mellitus, type II (Chronic) Diarrhea (Chronic) reviewed GI records, Dr. Novak considered mesalamine based on 12/2018 biospy Duodenitis (Chronic) Edema (Chronic) worsened ct current dose of diuretics follow low sodium diet aim to initiate PD Esophageal ring (Chronic) Gastritis (Chronic) Gastroesophageal reflux (Chronic) Hiatal hernia (Chronic) 05/31/[address] Florentin Quiroz Hyperlipidemia (Chronic) Hypertension (Chronic) Hypertensive heart disease, benign w/chronic kidney disease stage 1-4 (Chronic) Hypertensive renal disease (Chronic) BP is at goal at home/office Ct with current medications Follow a low sodium diet increase furosemide in pm if needed ,however at the expense of worsening renal function will initiate pt on PD Insomnia (Chronic) trazodone helping with insomnia Obesity (Chronic) Osteoporosis (Chronic) Overweight (Chronic) Proteinuria (Chronic) She has nephrotic range proteinuria ( 3 g on recent labs) she was on benazepril but given hyperkalemia and advanced CKD this has been discontinued as risk more than benefit Seborrheic keratosis (Chronic) Secondary hyperparathyroidism of renal origin (Chronic) PTH 286 at goal foR Stage V CKD calcium at goal Phos improved to 5 She is on Renvela which was increased to 2 tablets with meals Vit D is low at 19; continue Vit D3 at 5000 units daily calcitriol reduced to 0.25mcg MWF Ct SENSIPAR 30mg bid Pt will keep a careful watch on her diet. Sinusitis, chronic (Chronic) Urinary retention (Chronic) Vitamin D deficiency (Chronic) Surgical History (Updated 01/10/20 @ 08:57 by Linda Nash) H/O colonoscopy (Chronic ~12/20/18) With biopsies from terminal ileum, lipomas and ascending colon, random biopsies from normal colon done by Dr. Florentin Quiroz History of bladder surgery (Chronic ~10/2018) Transurethral resection of bladder Hx of decompressive lumbar laminectomy (Chronic ~04/13/10) Hx of esophagogastroduodenoscopy (Chronic) With dilation Hx of hysterectomy (Chronic) Ovaries left in place Family History mother Rheumatoid arthritis Malignant neoplasm of colon brother Diabetes mellitus Morbid obesity sister x2 Diabetes mellitus sister Parkinson's Disease Pneumonia, Onset Age: 59 Sister Renal failure Social History Smoking Status: Former smoker Alcohol Intake Frequency: does not drink Exam Narrative Narrative: Narrative: General Limitations: no limitations General appearance: alert and in no apparent distress Head Head: atraumatic, normocephalic and normal inspection Eye Eye: Present normal appearance and PERRL; Absent scleral icterus and conjunctival injection ENT ENT: Present normal exam and mucous membranes moist Neck Neck: Present normal inspection and full ROM; Absent lymphadenopathy Chest Chest: Present normal inspection Respiratory Respiratory: Present normal lung sounds bilaterally; Absent respiratory distress, wheezes, stridor, accessory muscle use and prolonged expiratory phase Cardiovascular Cardiovascular: Present regular rate and normal rhythm; Absent systolic murmur and diastolic murmur Adbominal Abdominal: Present soft, tenderness (All quadrants with majority of tenderness in the right and left lower quadrant) and normal bowel sounds; Absent distention, guarding, rebound and organomegaly Extremities Extremities: Present normal inspection, full ROM and normal capillary refill; Absent pretibial edema Back Back: Present normal inspection and full ROM Neurological Neurological: Present alert and oriented X3 Psychiatric Psychiatric: Present normal affect and normal mood Skin Skin: Present warm and dry Course Reevaluation(s) Reevaluation #1: 2036-patient currently sitting in room T8, and is in no distress at this time. House nurse district supervisor is currently taking the labs and CT scanning and notes from the hospital at [place] to Dr. Luong who is the hospitalist that is on this evening. Time: 20:37 Vital Signs Vital signs: Vital Signs Temperature 97.9 F 02/22/20 20:13 Pulse Rate 94 H 02/22/20 20:13 Respiratory Rate 19 02/22/20 20:13 Blood Pressure 99/62 02/22/20 20:13 Pulse Oximetry (%) 97 02/22/20 20:13 Temperature 97.9 F 02/22/20 21:47 Pulse Rate 91 H 02/22/20 21:47 Respiratory Rate 19 02/22/20 21:47 Blood Pressure 109/65 02/22/20 21:47 Pulse Oximetry (%) 100 02/22/20 21:47 [facility] Narrative Medical decision making narrative: Narrative: 2109 - Spoke with Dr. Luong, and he plans on admitting patient to the hospital. Dr. Gonzales will consult. Dr. Luong will place admission orders. He did recommend to give the patient a liter of normal saline. We will order a liter of normal saline for the patient, and then wait for the patient to be admitted to [facility]. Discharge Plan Patient/Caregiver Discharge Instructions Pt seen by JOURNALISM TEACHER/PA only: No Clinical Impression: Hypokalemia, ESRD (end stage renal disease), Sepsis Patient Disposition: Xfer As Inpt ([facility]) Condition: Fair Discharge Date/Time: 02/22/20 21:42
--- NOTE | 2020-02-22 20:46 | Internal Med History&Physical ---
HPI History of Present Illness Patient information: Note initiated : 02/22/20 at 8:41 pm Service Date, if different from initiated Date: [] Patient: Ema Vang a 80 y/o F admitted on for stomach pain. Chief Complaint: History of present illness: Ms. Vang is a 80 year old F with a history of HTN, DM, ESRD on PD with recent episode of peritonitis status post treatment on antibiotics. She presented to [facility] with worsening abdominal pain weakness lightheadedness. Initial work-up was consistent with sepsis with a white count of 16.5/potassium 2.5. CT abdomen shows mild colitis. Due to suspected recurrent peritonitis nephrology was consulted and requested patient be transferred to [facility] ER. Subsequently hospitalist service was consulted for admission. At the time of my evaluation patient is alert and oriented. She is able to answer most of the questions. She Is trying to recover from recent loss of her 2 weeks ago. She has had an appointment with GI but has not been able to follow-up due to recent loss of spouse. Peritoneal fluid was sent for investigation cloudy in appearance. Patient denies associated fever, headache, nausea vomiting or shortness of breath but endorses to intermittent diarrhea. She also denies confusion/joint pain/rash Review of systems 10 point review of system was performed and is negative except for ones discussed above [facility] Medical History (Updated 02/23/20 @ 08:20 by Nancy Gonzales MD) Abdominal pain (Chronic) Anxiety (Chronic) CHF (congestive heart failure) (Chronic) CKD (chronic kidney disease), stage V (Chronic) COPD (chronic obstructive pulmonary disease) (Chronic) Depression (Chronic) Diabetes mellitus (Chronic) On glipizde, BSs controlled per pt monitoring and management deferred to her primary provider Diabetes mellitus, type II (Chronic) Diarrhea (Chronic) reviewed GI records, Dr. Novak considered mesalamine based on 12/2018 biospy Duodenitis (Chronic) Edema (Chronic) worsened ct current dose of diuretics follow low sodium diet aim to initiate PD Esophageal ring (Chronic) Gastritis (Chronic) Gastroesophageal reflux (Chronic) Hiatal hernia (Chronic) 05/31/[address] Florentin Quiroz Hyperlipidemia (Chronic) Hypertension (Chronic) Hypertensive heart disease, benign w/chronic kidney disease stage 1-4 (Chronic) Hypertensive renal disease (Chronic) BP is at goal at home/office Ct with current medications Follow a low sodium diet increase furosemide in pm if needed ,however at the expense of worsening renal function will initiate pt on PD Insomnia (Chronic) trazodone helping with insomnia Obesity (Chronic) Osteoporosis (Chronic) Overweight (Chronic) Proteinuria (Chronic) She has nephrotic range proteinuria ( 3 g on recent labs) she was on benazepril but given hyperkalemia and advanced CKD this has been discontinued as risk more than benefit Seborrheic keratosis (Chronic) Secondary hyperparathyroidism of renal origin (Chronic) PTH 286 at goal foR Stage V CKD calcium at goal Phos improved to 5 She is on Renvela which was increased to 2 tablets with meals Vit D is low at 19; continue Vit D3 at 5000 units daily calcitriol reduced to 0.25mcg MWF Ct SENSIPAR 30mg bid Pt will keep a careful watch on her diet. Sinusitis, chronic (Chronic) Urinary retention (Chronic) Vitamin D deficiency (Chronic) Surgical History (Updated 01/10/20 @ 08:57 by Linda Nash) H/O colonoscopy (Chronic ~12/20/18) With biopsies from terminal ileum, lipomas and ascending colon, random biopsies from normal colon done by Dr. 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: [employer] other: divorce x1 smoking status: Former smoker quit date: 08/14/05 pack-years: 30 alcohol intake frequency: does not drink MEDS/ALLERGIES Home Medications and Allergies Home Medications Medication Instructions Recorded Confirmed Type cholecalciferol (vitamin D3) 50 2,000 unit PO QDAY #30 cap 07/02/19 02/23/20 Rx mcg (2,000 unit) capsule furosemide 120 mg PO BID 11/19/19 02/23/20 History glipizide 2.5 mg PO QAM PRN 11/19/19 02/23/20 History glipizide 5 mg PO QPM PRN 11/19/19 02/23/20 History pantoprazole 20 mg PO QDAY 11/19/19 02/23/20 History potassium chloride 40 meq PO DAILY 11/19/19 02/23/20 History Lactobacillus acidophilus 100 mg PO DAILYP PRN 12/07/19 02/23/20 History Accu-Chek 1 each FS ACHS strip 12/08/19 02/23/20 Rx Ferrous Fumarate 650 mg PO DAILY 12/23/19 02/23/20 History ascorbic acid (vitamin C) 500 mg PO DAILY 12/24/19 02/23/20 History cinacalcet 60 mg PO BID 12/24/19 02/23/20 History fluticasone propion-salmeterol 1 - 2 puff INH Q12HP PRN 12/24/19 02/23/20 History sevelamer HCl 1,600 mg PO TIDAC 12/24/19 02/23/20 History ropinirole 0.25 mg tablet 0.25 mg PO HS #14 tab 01/07/20 02/23/20 Rx atorvastatin 20 mg tablet 20 mg PO QHS #90 tab 02/17/20 02/23/20 Rx Allergies Allergy/AdvReac Type Severity Reaction Status Date / Time Penicillins Allergy Mild Hives Verified 12/23/19 08:37 ciprofloxacin [From Cipro] AdvReac Mild "Intoleranc Verified 12/23/19 08:37 e codeine AdvReac Mild Vomiting Verified 12/23/19 08:37 hydrocodone AdvReac Mild Vomiting Verified 12/23/19 08:37 tramadol AdvReac Mild Itching Verified 12/23/19 08:37 EXAM Constitutional Vitals: Temp Pulse Resp BP Pulse Ox 97.9 F 94 H 19 99/62 97 02/22/20 20:13 02/22/20 20:13 02/22/20 20:13 02/22/20 20:13 02/22/20 20:13 Head normocephalic Oral cavity dry No ear nose discharge Eye movement symmetrical Neck supple no lymphadenopathy S1-S2 occasionally irregular Nonlabored breathing Nondistended but tender generalized abdomen, PD catheter Lower extremity no cyanosis clubbing or joint swelling Skin no suspicious lesion Psych anxious but alert cooperative Neuro normal higher function A/P Narrative A/P Narrative: * Acute peritonitis dialysis related-antibiotics and management per nephrology * ESRD on PD will be managed per nephrology * Septic shock-start vasopressors/crystalloids, check venous lactate. Antibiotics, peritoneal fluid cultures * Hypokalemia2.5-replace as per nephrology * History of esophageal stricture on barium-follows up with GI Dr. Quiroz as outpatient * Recurrent spasms/restless leg -improved and OTC medication * History of COPD-continue home bronchodilators * History of HTN hold antihypertensives * Hyperlipidemia -Continue statin * DM type II continue basal prandial insulin/CC diet * GERD continue PPI * Full code * Prophylax Heparin Plan * Inpatient ICU admission * Vasopressors/lactic acid/peritoneal fluid cultures/antibiotics per nephrology * Pre-existing medical condition management home meds except for antihypertensives * Potassium replacement * Nutrition support/PT * Discharge planning Time Spent With Patient Time: Total time spent is greater than 50% in coordination of care (as documented) at patient's floor/unit and/or counseling patient:
[2020-02-22] MEDS ORDERED: 0.9 % SODIUM CHLORIDE 1,000 ML IV ONE (21:13)
[2020-02-22] MEDS ORDERED: MELATONIN 3 MG TABLET PO PRN (21:48)
[2020-02-22] MEDS ORDERED: POLYETHYLENE GLYCOL 3350 17 GM PACKET PO PRN (21:48)
[2020-02-22] MEDS ORDERED: NOREPINEPHRINE BITARTRATE 16 MG in 0.9 % SODIUM CHLORIDE 234 ML IV SCH (21:48)
[2020-02-22] MEDS ORDERED: ACETAMINOPHEN 650 MG/65 ML BOTTLE IV PRN (21:48)
[2020-02-22] MEDS ORDERED: ONDANSETRON 4 MG ODT TABLET SL PRN (21:48)
[2020-02-22] MEDS ORDERED: BISACODYL 10 MG SUPP.RECT PR PRN (21:48)
[2020-02-22] MEDS ORDERED: ONDANSETRON 4 MG/2 ML VIAL IV PRN (21:48)
[2020-02-22] MEDS: 0.9 % SODIUM CHLORIDE 10 ML SYRINGE IV SCH (22:41)
[2020-02-22] MEDS: SENNOSIDES/DOCUSATE SODIUM 1 TAB TABLET PO SCH (22:41)
[2020-02-22] MEDS: HEPARIN 5,000 UNIT/ML VIAL SQ SCH (22:41)
[2020-02-22] MEDS: DOCUSATE SODIUM 100 MG CAPSULE PO SCH (22:41)
[2020-02-23] MEDS: ACETAMINOPHEN 325 MG TABLET PO PRN ×2 (01:41→09:36)
[2020-02-23 06:42] LABS: Hematocrit 30.2 % (34.1-44.9); Hemoglobin 9.2 g/dL (11.2-15.7); Mean Cell Volume 89.3 fL (80.0-100.0); Mean Corpuscular HGB Conc 30.5 g/dL (31.0-36.0); Mean Platelet Volume 8.5 fL (7.4-10.4); Platelet Count 448 K/mcL (140-440); RBC 3.38 M/mcL (3.59-5.38); Red Cell Distribution Width 14.6 % (11.5-14.5); WBC 15.2 K/mcL (4.50-11.00)
[2020-02-23 07:06] LABS: ALT/SGPT 8 U/l (0-40); AST/SGOT 13 U/l (0-37); Alkaline Phosphatase 88 U/L (39-117); Bilirubin,Direct < 0.2 mg/dL (0.0-0.3); Bilirubin,Total 0.2 mg/dL (0.0-1.0); Blood Urea Nitrogen 49 mg/dl (8-23); Carbon Dioxide 21 mmol/L (22-30); Glucose 77 mg/dL (70-105); Lactate Dehydrogenase 217 U/L (94-250); Triglycerides 90 mg/dl (<150); Uric Acid 4.3 mg/dL (2.5-8.0)
[2020-02-23 07:22] LABS: Albumin 1.7 gm/dL (3.2-5.2); Albumin/Globulin Ratio 0.6 (1.0-2.3); Chloride 93 mmol/L (96-108); Glomerular Filtration Rate 7
[2020-02-23] MEDS ORDERED: NOREPINEPHRINE BITARTRATE 16 MG in 0.9 % SODIUM CHLORIDE 234 ML IV PRN (07:45)
[2020-02-23] MEDS ORDERED: MAGNESIUM SULFATE 2 GM/50 ML BAG IV ONE (07:56)
[2020-02-23] MEDS: PANTOPRAZOLE 40 MG TABLET PO SCH (08:01)
[2020-02-23] MEDS: 0.9 % SODIUM CHLORIDE 10 ML SYRINGE IV SCH ×3 (08:01→20:47)
--- NOTE | 2020-02-23 08:12 | Nephrology History & Physical ---
HPI History of Present Illness Patient information: Note initiated : 02/23/20 at 8:11 am Service Date, if different from initiated Date: [] Patient: Ema Vang a 80 y/o F admitted on 02/22/20 for stomach pain. Chief Complaint: abdominal pain, hypotension History of present illness: Ms. Vang is a 80 year old F transfered from OSH for abdominal pain. Has diarreah begining of the week, resolved. In the ED she was hypotensive, received fluids. PD RN collected PD fluid specimen, cloudy. Pmhx ESRD on PDm sepsis, hypercalcemia, failure to thrive, esophageal ring, pneumonia, anemia, hyperparathyroidism HTN, T2DM pshx bladder surgery, EGD, hysterectomy, PD cathter placement, colonoscopy social hx recently , no smoking, no alcohol fhx DM, RA Review of Systems Review of systems: 12 point review of systems performed and negative expect for : diarrhea - beginning of the week, now resolved. diffuse low abdominal pain (clear peritoneal fluid mid week --> cloudy on the day of admission). intermittent low appetite. [facility] Medical History (Updated 02/24/20 @ 07:18 by Nancy Gonzales MD) Abdominal pain (Chronic) Anxiety (Chronic) CHF (congestive heart failure) (Chronic) CKD (chronic kidney disease), stage V (Chronic) COPD (chronic obstructive pulmonary disease) (Chronic) Depression (Chronic) Diabetes mellitus (Chronic) On glipizde, BSs controlled per pt monitoring and management deferred to her primary provider Diabetes mellitus, type II (Chronic) Diarrhea (Chronic) reviewed GI records, Dr. Novak considered mesalamine based on 12/2018 biospy Duodenitis (Chronic) Edema (Chronic) worsened ct current dose of diuretics follow low sodium diet aim to initiate PD Esophageal ring (Chronic) Gastritis (Chronic) Gastroesophageal reflux (Chronic) Hiatal hernia (Chronic) 05/31/[address] Florentin Quiroz Hyperlipidemia (Chronic) Hypertension (Chronic) Hypertensive heart disease, benign w/chronic kidney disease stage 1-4 (Chronic) Hypertensive renal disease (Chronic) BP is at goal at home/office Ct with current medications Follow a low sodium diet increase furosemide in pm if needed ,however at the expense of worsening renal function will initiate pt on PD Insomnia (Chronic) trazodone helping with insomnia Obesity (Chronic) Osteoporosis (Chronic) Overweight (Chronic) Proteinuria (Chronic) She has nephrotic range proteinuria ( 3 g on recent labs) she was on benazepril but given hyperkalemia and advanced CKD this has been discontinued as risk more than benefit Seborrheic keratosis (Chronic) Secondary hyperparathyroidism of renal origin (Chronic) PTH 286 at goal foR Stage V CKD calcium at goal Phos improved to 5 She is on Renvela which was increased to 2 tablets with meals Vit D is low at 19; continue Vit D3 at 5000 units daily calcitriol reduced to 0.25mcg MWF Ct SENSIPAR 30mg bid Pt will keep a careful watch on her diet. Sinusitis, chronic (Chronic) Urinary retention (Chronic) Vitamin D deficiency (Chronic) Surgical History (Updated 01/10/20 @ 08:57 by Linda Nash) H/O colonoscopy (Chronic ~12/20/18) With biopsies from terminal ileum, lipomas and ascending colon, random biopsies from normal colon done by Dr. 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: [employer] other: divorce x1 smoking status: Former smoker quit date: 08/14/05 pack-years: 30 alcohol intake frequency: does not drink MEDS/ALLERGIES Home Medications and Allergies Home Medications Medication Instructions Recorded Confirmed Type cholecalciferol (vitamin D3) 50 2,000 unit PO QDAY #30 cap 07/02/19 02/23/20 Rx mcg (2,000 unit) capsule glipizide 2.5 mg PO QAM PRN 11/19/19 02/23/20 History glipizide 5 mg PO QPM PRN 11/19/19 02/23/20 History pantoprazole 20 mg PO QDAY 11/19/19 02/23/20 History potassium chloride 40 meq PO DAILY 11/19/19 02/23/20 History Lactobacillus acidophilus 100 mg PO DAILY 12/07/19 02/23/20 History Accu-Chek 1 each FS ACHS strip 12/08/19 02/23/20 Rx Ferrous Fumarate 650 mg PO DAILY 12/23/19 02/23/20 History ascorbic acid (vitamin C) 500 mg PO DAILY 12/24/19 02/23/20 History cinacalcet 90 mg PO QAM 12/24/19 02/23/20 History fluticasone propion-salmeterol 1 - 2 puff INH Q12HP PRN 12/24/19 02/23/20 History ropinirole 0.25 mg tablet 0.25 mg PO HS #14 tab 01/07/20 02/23/20 Rx atorvastatin 20 mg tablet 20 mg PO QHS #90 tab 02/17/20 02/23/20 Rx acetaminophen [Tylenol] 325 - 650 mg PO Q4-6HP PRN 02/23/20 02/23/20 History aspirin 81 mg PO QDAY 02/23/20 02/23/20 History calcitriol 0.25 mcg PO QDAY 02/23/20 02/23/20 History diclofenac epolamine [Flector] 1 patch TOPICAL DAILY PRN 02/23/20 02/23/20 History docusate sodium [Colace] 100 mg PO BID 02/23/20 02/23/20 History herbal drugs 2 tab PO BID 02/23/20 02/23/20 History loperamide 2 mg PO Q6H PRN 02/23/20 02/23/20 History metoclopramide HCl [Reglan] 5 mg PO QAM 02/23/20 02/23/20 History promethazine 25 mg PO Q6H PRN 02/23/20 02/23/20 History Allergies Allergy/AdvReac Type Severity Reaction Status Date / Time Penicillins Allergy Mild Hives Verified 12/23/19 08:37 ciprofloxacin [From Cipro] AdvReac Mild "Intoleranc Verified 12/23/19 08:37 e codeine AdvReac Mild Vomiting Verified 12/23/19 08:37 hydrocodone AdvReac Mild Vomiting Verified 12/23/19 08:37 tramadol AdvReac Mild Itching Verified 12/23/19 08:37 Physical Examination Vital Signs Vital signs: Temp Pulse Resp BP Pulse Ox 36.7 C 101 H 14 103/59 98 02/23/20 06:00 02/23/20 04:17 02/23/20 06:00 02/23/20 06:00 02/23/20 06:00 General Appearance General appearance: well-nourished and frail Exam Narrative: no distress, having breakfast EENT EENT: ATNC and hearing intact Neck Neck: no JVD Respiratory Respiratory: clear Cardiovascular Cardiology: no rub, regular rhythm and rapid rhythm Gastrointestinal Gastrointestinal: hypoactive bowel sounds Integumentary Integumentary: warm and dry Neurologic Neurologic: no focal deficit Additional Exam Additional exam: abdomen soft, tender in hypogastric area, no rebound or g uarding. 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 Due to location in lower abdomen I will also check a ua with reflex to culture. received ceftazidime/ vancomycin 02/22/2020. *continue empiric antibiotics until PD cx available * am random vanc level *nystatin swish and swallow qid for prophylaxis of fungal peritonitis *fluid cell count and culture done after first dose of antibiotics (patient was hypotensive) *PD fluid lost so not available at the time of rounds, second sample ordered then PD fluid found. *PD on hold x 48 hrs, resume tomorrow 02/24/2020 *Dr Pinto will take over case 02/24/2020 02/22/2020 labs Na 126, K 2.5, Chloride 88 hemodynamics and volume on presentation hypotensive, responded to volume resuscitation. PD held the first night of admission. Hold tonight too hyponatremia, hypovolemic (poor PO intake and diarrhea beginning of the week), slight improvement with NS. Monitor acid-base Bicarbonate ; goal >22 bone-mineral metabolism alk phosphatase 97 within lab reference range BUN/ K 51/ 2.5 received K supplementation. *give 20mEq K po daily and monitor RFP daily hematologic anemia in CKD outpatient aranesp Time Spent With Patient Time: Total time spent is greater than 50% in coordination of care (as documented) at patient's floor/unit and/or counseling patient:
[2020-02-23 08:28] LABS: Anisocytosis 1+ (NONE SEEN); Band Neutrophils % 1 % (0-10); Hypochromasia 1+ (NONE SEEN); Lymphocytes % 10 % (15-49); Monocytes % (Manual) 7 % (1-12); Platelet Estimate INCREASED (NORMAL); RBC Morphology ABNORM (NORMAL); Segmented Neutrophils % 82 % (38-78)
[2020-02-23] MEDS ORDERED: glipiZIDE 5 MG TABLET PO PRN ×2 (08:28)
[2020-02-23] MEDS ORDERED: LACTOBACILLUS 1 CAPSULE PO PRN (08:37)
--- NOTE | 2020-02-23 08:37 | Internal Med Progress Note ---
SUBJECTIVE Subjective Patient information: Note initiated : 02/23/20 at 8:32 am Service Date, if different from initiated Date: [] Patient: Ema Vang a 80 y/o F admitted on 02/22/20 for stomach pain. History of present illness: Ms. Vang is a 80 year old F with a history of HTN, DM, ESRD on PD with recent episode of peritonitis status post treatment on antibiotics. She presented to [facility] with worsening abdominal pain weakness lightheadedness. Initial work-up was consistent with sepsis with a white count of 16.5/potassium 2.5. CT abdomen shows mild colitis. Due to suspected recurrent peritonitis nephrology was consulted and requested patient be transferred to [facility] ER. Subsequently hospitalist service was consulted for admission. At the time of my evaluation patient is alert and oriented. She is able to answer most of the questions. She Is trying to recover from recent loss of her 2 weeks ago. She has had an appointment with GI but has not been able to follow-up due to recent loss of spouse. Peritoneal fluid was sent for investigation cloudy in appearance. Patient denies associated fever, headache, nausea vomiting or shortness of breath but endorses to intermittent diarrhea. She also denies confusion/joint pain/rash --02/22-patient doing better. White count down to 15.2, potassium up from 2.5- >3.3. Creatinine 5.7. Restarted on home medications. Await peritoneal fluid culture/cell count. On antibiotic coverage as per nephrology. Blood sugars at goal. Interval history: : Constitutional Vitals: Vital Signs Temp Pulse Resp BP Pulse Ox 98.0 F 101 H 14 103/59 98 02/23/20 06:00 02/23/20 04:17 02/23/20 06:00 02/23/20 06:00 02/23/20 06:00 Period Temp Pulse Resp BP Sys/Hartman Pulse Ox Last 24 Hr 97.4 F-98.6 F 91-101 13-31 89-121/51-74 97-100 Intake and Output 02/22/20 02/23/20 02/23/20 21:59 05:59 13:59 Intake Total 630 670 240 Output Total 75 Balance 630 595 240 Weight 63.503 kg 63.503 kg Alert oriented Appears fatigued nonlabored breathing Minimally tender abdomen No lymphedema Intake & Output: Intake & Output 02/22/20 02/23/20 02/23/20 21:59 05:59 13:59 Intake Total 630 670 240 Output Total 75 Balance 630 595 240 Weight 63.503 kg 63.503 kg Intake: IV 450 550 Sodium Chloride 0.9% 1,000 ml @ 450 550 Wide Open IV BOLUS ONE Rx#: [id number] Oral 180 120 240 Output: Void Amount 75 Other: Urine Appearance Clear Urine Color Bright Yellow OBJ DATA Labs CBC & Chem 7: 02/23/20 05:00 02/23/20 05:00 Labs: Abnormal Lab Results 02/23/20 02/23/20 05:00 05:00 WBC 15.2 H RBC 3.38 L Hgb 9.2 L Hct 30.2 L MCHC 30.5 L RDW 14.6 H Plt Count 448 H Seg Neutrophils % 82 H Lymphocytes % 10 L RBC Morphology Abnorm A Hypochromasia 1+ A Anisocytosis 1+ A Sodium 127 L Chloride 93 L Carbon Dioxide 21 L BUN 49 H Creatinine 5.7 H* Calcium 8.0 L Magnesium 1.1 L Total Protein 4.7 L Albumin 1.7 L Albumin/Globulin Ratio 0.6 L Meds: Medications Acetaminophen (Tylenol) 650 mg PO Q4-6HP PRN; Protocol PRN Reason: Per Pain Protocol/Fever > 101 Last Admin: 02/23/20 01:41 Dose: 650 mg Documented by: Ascorbic Acid (Vitamin C) 500 mg PO DAILY [facility] Atorvastatin Calcium (Lipitor) 20 mg PO QHS [facility] Bisacodyl (Dulcolax) 10 mg CA Q2-3DAYS PRN PRN Reason: Constipation Ceftazidime (Fortaz) 1 gm IP ONCE ONE; Protocol Stop: 02/23/20 20:23 Cinacalcet (Sensipar) 60 mg PO BID [facility] Diagnostic Test (Pha) (Accu-Chek) 1 each FS ACHS [facility] Docusate Sodium (Colace) 100 mg PO BID [facility] Last Admin: 02/22/20 22:41 Dose: Not Given Documented by: Glipizide (Glucotrol) 2.5 mg PO QAM PRN PRN Reason: Blood Sugar - High Glipizide (Glucotrol) 5 mg PO QPM PRN PRN Reason: Blood Sugar - High Heparin Sodium (Porcine) (Heparin) 5,000 unit SQ Q12 [facility] Last Admin: 02/22/20 22:41 Dose: 5,000 unit Documented by: Acetaminophen (Ofirmev) 650 mg in 65 mls @ 130 mls/hr IV Q6HP PRN; Protocol PRN Reason: Per Pain Protocol/Fever > 101 Norepinephrine Bitartrate 16 (mg/ Sodium Chloride) 250 mls @ 9.375 mls/hr IV Q24HP PRN; Protocol PRN Reason: Hypotension Magnesium Sulfate (Magnesium Sulfate) 2 gm in 50 mls @ 25 mls/hr IV ONCE ONE Stop: 02/23/20 09:55 Insulin Human Lispro (Humalog) 0 unit SQ [facility]; Protocol Iron Carb/Multivit/Merrick/Folic Acid (Multivitamin W/Minerals) 1 tab PO DAILY [facility] Melatonin (Melatonin 3mg Tablet) 3 mg PO HSP PRN PRN Reason: Insomnia Last Admin: 02/22/20 23:01 Dose: 3 mg Documented by: Non-Formulary Medication (Accu-Chek) 1 each FS [facility] Non-Formulary Medication (Cholecalciferol (Vitamin D3)) 2,000 unit PO QDAY [facility] Non-Formulary Medication (Ferrous Fumarate) 650 mg PO DAILY [facility] Non-Formulary Medication (Fluticasone Propion-Salmeterol) 1 - 2 puff INH Q12HP PRN PRN Reason: Shortness Of Breath Non-Formulary Medication (Lactobacillus Acidophilus) 100 mg PO DAILYP PRN PRN Reason: Loose Stool Non-Formulary Medication (Sevelamer Hcl) 1,600 mg PO TIDAC [facility] Ondansetron HCl (Zofran Odt) 4 mg SL Q4-6HP PRN; Protocol PRN Reason: Nausea And Vomiting Ondansetron HCl (Zofran) 4 mg IV Q4-6HP PRN; Protocol PRN Reason: Nausea And Vomiting Pantoprazole Sodium (Protonix) 40 mg PO QAMAC [facility] Last Admin: 02/23/20 08:01 Dose: 40 mg Documented by: Pantoprazole Sodium (Protonix) 20 mg PO QDAY [facility] Polyethylene Glycol (Miralax) 17 gm PO DAILYP PRN PRN Reason: Constipation Potassium Chloride (Kdur) 20 meq PO QAMCC [facility] Potassium Chloride (Klor-Con) 40 meq PO DAILY [facility] Ropinirole HCl (Requip) 0.25 mg PO HS [facility] Senna/Docusate Sodium (Senna Plus Tablet) 1 tab PO HS [facility] Last Admin: 02/22/20 22:41 Dose: Not Given Documented by: Sodium Chloride (Saline Flush) 10 ml IV Q8 [facility] Last Admin: 02/23/20 08:01 Dose: 10 ml Documented by: A/P Assessment and plan (1) Abdominal pain: Status: Acute Narrative A/P Narrative: * Acute peritonitis dialysis related- Recurrent episodes over the last 3 months. Ongoing management per nephrology. On antibiotic coverage. * ESRD on PD will be managed per nephrology * Severe sepsis clinically resolved. White count down to 15. Blood pressure goal. Off pressors. * HypokalemiaImproved from 2.5-3.3. Ongoing management per nephrology. * Low magnesium on replacement * History of esophageal stricture on barium/Mild colitis on CT abdomen.Patient scheduled to follow-up with GI Dr. Quiroz as outpatient * Recurrent spasms/restless leg -improved and OTC medication * History of COPD-continue home bronchodilators * History of HTN hold antihypertensives * Hyperlipidemia -Continue statin * DM type II continue basal prandial insulin/CC diet * GERD continue PPI * Full code * Prophylax Heparin Plan * Antibiotic coverage per nephrology * Pre-existing medical condition management On home medications * Continue electrolyte replacement * Nutrition support/PT * Discharge planning Time Spent With Patient Time: Total time spent is greater than 50% in coordination of care (as documented) at patient's floor/unit and/or counseling patient:35 minutes
[2020-02-23] MEDS ORDERED: FLUTICASONE/SALMETEROL 250/50 INHALER #14 INH PRN (08:39)
[2020-02-23] MEDS ORDERED: PANTOPRAZOLE 40 MG TABLET PO SCH (09:00)
[2020-02-23] MEDS ORDERED: POTASSIUM CHLORIDE 20 MEQ PACKET PO SCH (09:00)
[2020-02-23] MEDS: CINACALCET 30 MG TABLET PO SCH ×2 (09:28→20:47)
[2020-02-23] MEDS: FERROUS SULFATE 325 MG TABLET PO SCH (09:28)
[2020-02-23] MEDS: POTASSIUM CHLORIDE 20 MEQ TABLET PO SCH (09:28)
[2020-02-23] MEDS: MULTIVIT,THER IRON,CA,FA & MIN 1 TABLET PO SCH (09:28)
[2020-02-23] MEDS: DOCUSATE SODIUM 100 MG CAPSULE PO SCH ×2 (09:28→20:47)
[2020-02-23] MEDS: ASCORBIC ACID 500 MG TABLET PO SCH (09:28)
[2020-02-23] MEDS: HEPARIN 5,000 UNIT/ML VIAL SQ SCH ×2 (09:29→20:46)
[2020-02-23] MEDS: INSULIN LISPRO 1 UNIT/0.01 ML UNIT SQ SCH ×4 (09:29→20:48)
[2020-02-23] MEDS: VITAMIN D3 1,000 UNIT TABLET PO SCH (09:29)
[2020-02-23 09:47] LABS: Appearance,Urine HAZY; Bacteria,Urine MOD /hpf (0); Bilirubin,Urine NEG (NEG); Color,Urine YELLOW; Culture Indicated,Urine NO; Glucose,Urine (UA) NEGATIVE (NEG); Ketones,Urine NEG (NEG); Leukocyte Esterase,Urine 250 /uL (NEG); Nitrate,Urine NEG (NEG); Protein,Urine 30 mg/dL (NEG); Specific Gravity,Urine 1.015 (1.000-1.035); Urine Blood NEG mg/dL (<0.03); Urine Budding Yeast MANY /hpf (0); Urine RBC 24 /hpf (0-1); Urine Squamous Epithelial Cell 19 /hpf (0-4); Urine Transitional Epi Cells < 1 /hpf (0-2); Urine WBC 50 /hpf (0-4); Urobilinogen,Urine NEG (NEG)
[2020-02-23] MEDS ORDERED: NON FORMULARY MEDICATION 1 DOSE MISCELL (Accu-Chek 1 EACH) FS SCH (11:30)
[2020-02-23] MEDS: [UNRECOGNIZED DRUG - OTHER] SL SCH ×2 (12:27→20:46)
[2020-02-23] MEDS: SEVELAMER 800 MG TABLET PO SCH ×2 (12:55→17:29)
[2020-02-23] MEDS ORDERED: cefTAZidime 1 GM VIAL IP ONE ×2 (13:45→20:22)
[2020-02-23 15:04] LABS: RBC,Peritoneal Fluid < 50000 /cumm
[2020-02-23 15:13] LABS: Nucleated Cel,Peritoneal Fluid 6704 /cumm
[2020-02-23 15:14] LABS: Nucleated Cel,Peritoneal Fluid 3554 /cumm; RBC,Peritoneal Fluid < 50000 /cumm
[2020-02-23 15:59] LABS: Monocyte,Peritoneal Fluid 15 %; Neutrophils,Peritoneal Fluid 73 %
[2020-02-23 16:15] LABS: Macrophages,Peritoneal Fluid 1 %; Monocyte,Peritoneal Fluid 4 %; Neutrophils,Peritoneal Fluid 85 %
[2020-02-23] MEDS: SENNOSIDES/DOCUSATE SODIUM 1 TAB TABLET PO SCH (20:47)
[2020-02-23] MEDS ORDERED: ATORVASTATIN 20 MG TABLET PO SCH (21:00)
[2020-02-23] MEDS ORDERED: rOPINIRole 0.25 MG TABLET PO SCH (21:00)
[2020-02-24 06:13] LABS: Hematocrit 29.5 % (34.1-44.9); Hemoglobin 9.2 g/dL (11.2-15.7); Mean Cell Volume 88.9 fL (80.0-100.0); Mean Corpuscular HGB Conc 31.2 g/dL (31.0-36.0); Mean Platelet Volume 8.8 fL (7.4-10.4); Platelet Count 517 K/mcL (140-440); RBC 3.32 M/mcL (3.59-5.38); Red Cell Distribution Width 14.7 % (11.5-14.5)
[2020-02-24] MEDS: PANTOPRAZOLE 40 MG TABLET PO SCH (06:55)
[2020-02-24] MEDS: 0.9 % SODIUM CHLORIDE 10 ML SYRINGE IV SCH ×3 (06:57→20:24)
[2020-02-24] MEDS: INSULIN LISPRO 1 UNIT/0.01 ML UNIT SQ SCH ×5 (06:57→20:21)
[2020-02-24 07:07] LABS: Bilirubin,Direct < 0.2 mg/dL (0.0-0.3); Bilirubin,Total < 0.2 mg/dL (0.0-1.0)
[2020-02-24 07:18] LABS: ALT/SGPT 7 U/l (0-40); AST/SGOT 15 U/l (0-37); Albumin 1.7 gm/dL (3.2-5.2); Albumin/Globulin Ratio 0.6 (1.0-2.3); Alkaline Phosphatase 93 U/L (39-117); Blood Urea Nitrogen 54 mg/dl (8-23); Calcium 8.3 mg/dl (8.6-10.4); Carbon Dioxide 20 mmol/L (22-30); Chloride 92 mmol/L (96-108); Globulin 2.9 gm/dL (2.2-3.7); Glomerular Filtration Rate 6; Glucose 81 mg/dL (70-105); Lactate Dehydrogenase 226 U/L (94-250); Phosphorous 4.8 mg/dL (2.7-4.5); Triglycerides 83 mg/dl (<150); Uric Acid 5.3 mg/dL (2.5-8.0)
[2020-02-24] MEDS: POTASSIUM CHLORIDE 20 MEQ TABLET PO SCH (08:31)
[2020-02-24] MEDS: SEVELAMER 800 MG TABLET PO SCH ×4 (08:31→17:27)
[2020-02-24] MEDS: FERROUS SULFATE 325 MG TABLET PO SCH (08:33)
[2020-02-24] MEDS: VITAMIN D3 1,000 UNIT TABLET PO SCH (08:42)
[2020-02-24] MEDS: [UNRECOGNIZED DRUG - OTHER] SL SCH ×2 (08:42→20:53)
[2020-02-24] MEDS: MULTIVIT,THER IRON,CA,FA & MIN 1 TABLET PO SCH (08:42)
[2020-02-24] MEDS: ASCORBIC ACID 500 MG TABLET PO SCH (08:42)
[2020-02-24] MEDS: CINACALCET 30 MG TABLET PO SCH ×2 (08:42→20:20)
[2020-02-24] MEDS: DOCUSATE SODIUM 100 MG CAPSULE PO SCH ×3 (08:44→20:23)
[2020-02-24] MEDS: HEPARIN 5,000 UNIT/ML VIAL SQ SCH ×2 (08:44→20:22)
[2020-02-24 08:57] LABS: Lymphocytes % 23 % (15-49); Monocytes % (Manual) 10 % (1-12); Platelet Estimate INCREASED (NORMAL); RBC Morphology NORMAL (NORMAL); Segmented Neutrophils % 67 % (38-78)
--- NOTE | 2020-02-24 10:01 | Internal Med Progress Note ---
SUBJECTIVE Subjective Patient information: Note initiated : 02/24/20 at 9:59 am Service Date, if different from initiated Date: [] Patient: Ema Vang a 80 y/o F admitted on 02/22/20 for stomach pain. Chief Complaint: History of present illness: Ms. Vang is a 80 year old F with a history of HTN, DM, ESRD on PD with recent episode of peritonitis status post treatment on antibiotics. She presented to [facility] with worsening abdominal pain weakness lightheadedness. Initial work-up was consistent with sepsis with a white count of 16.5/potassium 2.5. CT abdomen shows mild colitis. Due to suspected recurrent peritonitis nephrology was consulted and requested patient be transferred to [facility] ER. Subsequently hospitalist service was consulted for admission. At the time of my evaluation patient is alert and oriented. She is able to answer most of the questions. She Is trying to recover from recent loss of her 2 weeks ago. She has had an appointment with GI but has not been able to follow-up due to recent loss of spouse. Peritoneal fluid was sent for investigation cloudy in appearance. Patient denies associated fever, headache, nausea vomiting or shortness of breath but endorses to intermittent diarrhea. She also denies confusion/joint p ain/rash --02/22-patient doing better. White count down to 15.2, potassium up from 2.5- >3.3. Creatinine 5.7. Restarted on home medications. Await peritoneal fluid culture/cell count. On antibiotic coverage as per nephrology. Blood sugars at goal. 02/23-patient is white count 6000+. However improving with antibiotic coverage and repeat white count down to 3500. Peripheral white count down to 11,000. Abdominal pain improving. More alert lucid. Ongoing peritoneal dialysis. Potassium improved to 3.5. No other concerns expressed by nursing staff. Interval history: Narrative: Constitutional Vitals: Vital Signs Temp Pulse Resp BP Pulse Ox 97.5 F 103 H 28 H 111/47 97 02/24/20 08:00 02/24/20 08:00 02/24/20 08:00 02/24/20 08:00 02/24/20 08:00 Period Temp Pulse Resp BP Sys/Hartman Pulse Ox Last 24 Hr 97.3 F-98.2 F 87-103 14-32 85-140/38-65 93-100 Intake and Output 02/23/20 02/24/20 02/24/20 21:59 05:59 13:59 Intake Total 890 417 200 Output Total 100 250 101 Balance 790 167 99 Weight 64.864 kg Alert oriented nonlabored breathing No lymphedema Minimally tender abdomen Intake & Output: Intake & Output 02/23/20 02/24/20 02/24/20 21:59 05:59 13:59 Intake Total 890 417 200 Output Total 100 250 101 Balance 790 167 99 Weight 64.864 kg Intake: IV 50 Oral 840 417 200 Output: Void Amount 100 250 100 # of times incontinent of urine 1 Other: Meal Dinner Breakfast Percent of Meal Consumed 25% 25% Feeding Ability Independent Independent Urine Appearance Clear Clear Urine Color Bright Yellow Pale Urine Odor Normal Stool Size Large Moderate Stool Color Brown Brown Black Green Stool Consistency Loose # Bowel Movements 1 1 OBJ DATA Labs CBC & Chem 7: 02/24/20 05:00 02/24/20 05:00 Labs: Abnormal Lab Results 02/24/20 02/24/20 02/23/20 05:00 05:00 08:30 WBC RBC 3.32 L Hgb 9.2 L Hct 29.5 L MCHC RDW 14.7 H Plt Count 517 H Seg Neutrophils % Lymphocytes % RBC Morphology Hypochromasia Anisocytosis Sodium 129 L Chloride 92 L Carbon Dioxide 20 L Anion Gap 17.0 H BUN 54 H Creatinine 6.3 H* Calcium 8.3 L Phosphorus 4.8 H Magnesium Total Protein 4.6 L Albumin 1.7 L Albumin/Globulin Ratio 0.6 L Urine Protein 30 A Ur Leukocyte Esterase 250 A Urine RBC 24 H Urine WBC 50 H Ur Squamous Epith Cells 19 H Urine Bacteria Mod A Urine Yeast (Budding) Many A 02/23/20 02/23/20 05:00 05:00 WBC 15.2 H RBC 3.38 L Hgb 9.2 L Hct 30.2 L MCHC 30.5 L RDW 14.6 H Plt Count 448 H Seg Neutrophils % 82 H Lymphocytes % 10 L RBC Morphology Abnorm A Hypochromasia 1+ A Anisocytosis 1+ A Sodium 127 L Chloride 93 L Carbon Dioxide 21 L Anion Gap BUN 49 H Creatinine 5.7 H* Calcium 8.0 L Phosphorus Magnesium 1.1 L Total Protein 4.7 L Albumin 1.7 L Albumin/Globulin Ratio 0.6 L Urine Protein Ur Leukocyte Esterase Urine RBC Urine WBC Ur Squamous Epith Cells Urine Bacteria Urine Yeast (Budding) Meds: Medications Acetaminophen (Tylenol) 650 mg PO Q4-6HP PRN; Protocol PRN Reason: Per Pain Protocol/Fever > 101 Last Admin: 02/23/20 09:36 Dose: 650 mg Documented by: Ascorbic Acid (Vitamin C) 500 mg PO DAILY [facility] Last Admin: 02/24/20 08:42 Dose: 500 mg Documented by: Atorvastatin Calcium (Lipitor) 20 mg PO QHS [facility] Last Admin: 02/23/20 20:46 Dose: 20 mg Documented by: Bisacodyl (Dulcolax) 10 mg [place] Q2-3DAYS PRN PRN Reason: Constipation Cinacalcet (Sensipar) 60 mg PO BID [facility] Last Admin: 02/24/20 08:42 Dose: 60 mg Documented by: Diagnostic Test (Pha) (Accu-Chek) 1 each FS [facility] Last Admin: 02/24/20 06:56 Dose: 1 each Documented by: Docusate Sodium (Colace) 100 mg PO BID [facility] Last Admin: 02/24/20 08:44 Dose: Not Given Documented by: Ferrous Sulf[facility] ([facility] Sulfate) [facility] Admin: 02/24/20 08:33 Dose: 650 mg Documented by: Glipizide (Glucotrol) 2.5 mg PO QAM PRN PRN Reason: Blood Sugar - High Glipizide (Glucotrol) 5 mg PO QPM PRN PRN Reason: Blood Sugar - High Heparin Sodium (Porcine) (Heparin) 5,000 unit SQ Q12 [facility] Last Admin: 02/24/20 08:44 Dose: 5,000 unit Documented by: Acetaminophen (Ofirmev) 650 mg in 65 mls @ 130 mls/hr IV Q6HP PRN; Protocol PRN Reason: Per Pain Protocol/Fever > 101 Norepinephrine Bitartrate 16 (mg/ Sodium Chloride) 250 mls @ 9.375 mls/hr IV Q24HP PRN; Protocol PRN Reason: Hypotension Insulin Human Lispro (Humalog) 0 unit SQ ACHS [facility]; Protocol Last Admin: 02/24/20 06:57 Dose: Not Given Documented by: Iron Carb/Multivit/Funeral Pre Arrangement Counselor/Folic Acid (Multivitamin W/Minerals) 1 tab PO DAILY [facility] Last Admin: 02/24/20 08:42 Dose: 1 tab Documented by: Lactobacillus Rhamnosus (Culturelle) 1 cap PO DAILYP PRN PRN Reason: Loose Stool Melatonin (Melatonin 3mg Tablet) 3 mg PO HSP PRN PRN Reason: Insomnia Last Admin: 02/22/20 23:01 Dose: 3 mg Documented by: Ondansetron HCl (Zofran Odt) 4 mg SL Q4-6HP PRN; Protocol PRN Reason: Nausea And Vomiting Ondansetron HCl (Zofran) 4 mg IV Q4-6HP PRN; Protocol PRN Reason: Nausea And Vomiting Last Admin: 02/23/20 09:36 Dose: 4 mg Documented by: Pantoprazole Sodium (Protonix) [facility] Last Admin: 02/24/20 06:55 Dose: 40 mg Documented by: Leg Cramp Medication 2 dose SL BID [facility] Last Admin: 02/24/20 08:42 Dose: 2 dose Documented by: Polyethylene Glycol (Miralax) 17 gm PO DAILYP PRN PRN Reason: Constipation Last Admin: 02/23/20 09:28 Dose: 17 gm Documented by: Potassium Chloride (Kdur) 20 meq PO QAMCC [facility] Last Admin: 02/24/20 08:31 Dose: 20 meq Documented by: Ropinirole HCl (Requip) 0.25 mg PO [facility] Last Admin: 02/23/20 20:47 Dose: 0.25 mg Documented by: Fluticasone/Salmeterol (Advair 250-50 Diskus) 1 - 2 puff INH Q12HP PRN PRN Reason: Shortness Of Breath Senna/Docusate Sodium (Senna Plus Tablet) 1 tab PO [facility] Last Admin: 02/23/20 20:47 Dose: Not Given Documented by: Sevelamer Carbonate (Renvela) 1,600 mg PO TIDCC [facility] Last Admin: 02/24/20 08:31 Dose: 1,600 mg Documented by: Sodium Chloride (Saline Flush) 10 ml IV Q8 [facility] Last Admin: 02/24/20 06:57 Dose: 10 ml Documented by: Vitamin D (Vitamin D3) 2,000 unit PO DAILY [facility] Last Admin: 02/24/20 08:42 Dose: 2,000 unit Documented by: A/P Narrative A/P Narrative: * Acute peritonitis dialysis related-peritoneal fluid count over 6000. On antibiotic coverage per nephrology. Recurrent episodes over the last 3 months. * ESRD on PD managed per nephrology * Severe sepsis clinically resolved. White count improving now to 11. * Hypokalemia improved 3.5. * Low magnesium on replacement * History of esophageal stricture on barium/Mild colitis on CT abdomen.Patient scheduled to follow-up with GI Dr. Quiroz as outpatient. Continue dysphagia diet/ST eval * Recurrent spasms/restless leg -improved and OTC medication * History of COPD-continue home bronchodilators * History of HTN hold antihypertensives * Hyperlipidemia -Continue statin * DM type II continue basal prandial insulin/CC diet * GERD continue PPI * Full code * Prophylax Heparin Plan * Antibiotic coverage per nephrology * Pre-existing medical condition management On home medications * Continue electrolyte replacement * Nutrition support/PT * ST eval/dysphagia diet * Discharge planning Time Spent With Patient Time: Total time spent is greater than 50% in coordination of care (as documented) at patient's floor/unit and/or counseling patient: Total time spent with greater than 50% in coordination of care (as documented) at patient's floor/unit and/or counseling patient:: Greater than 35 minutes
[2020-02-24] MEDS: ACETAMINOPHEN 325 MG TABLET PO PRN (10:37)
--- NOTE | 2020-02-24 16:02 | Nephrology Progress Note ---
SUBJECTIVE Subjective Patient information: Note initiated : 02/24/20 at 4:01 pm Service Date, if different from initiated Date: [] Patient: Ema Vang a 80 y/o F admitted on 02/22/20 for stomach pain. Chief Complaint: [recurrant belly pain] Interval history: Narrative: Ms Vang has multiple medical issues including Hx of HTN, DM type 2, CKD , dyslipidemia who RTC for follow up of her CKD She has CKD V with nephrotic range proteinuria. 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 She had been followed by Dr. Russ and following her departure Dr. Gonzales has assumed care of the patient in terms of her dialysis. 2019 was a year full of complications for this patient as I believe she had esophageal obstruction, enterocolitis and C. difficile colitis. The end result of all this was that her peritoneal membrane has become a sieve in terms of functioning to prevent large amounts of albumin losses into the peritoneal fluid. This is aggravated her hypo-albuminemia, caused hypocalcemia, which in turn is aggravated her secondary hyperparathyroidism, and she is now chronically hypokalemic. At one time she had hypertension and was on blood pressure medications but these of long since been discontinued. Thus it seems likely this patient runs on the dry side and certainly not hypervolemic. She now is best described and failure to thrive and cannot be maintained on home therapy. This coupled with the recent of her and 3 episode of peritoneal elevated WBCs (If you prefer culture negative peritonitis) would require removal of the current PD catheter, placement of a cuffed HD catheter and initiation of HD. To do this she must [place] to a [place] where she can be cared for and transported 3x per week for the remainder of her life in my opinion. Also, its been my observation that following the passage of a spouce, dialysis patients loose the will to survive and often join the spouse's in the eternal life soon thereafter. Thus limitations of goals may be in order. Upon transfer earlier there was concern for colitis based on CT findings and white count of 16,000, however there is no documented lactic acidosis, fever, and placed on antibiotics awaiting results of the culture. In my mind, or things could be going on: Untreated colitis. Unnecessarily bacterial could just as well be ischemic or related to inflammatory bowel disease for which she is apparently not been restarted on her mesalamine. Recurrent culture negative peritonitis: This is a think she would require removal of her peritoneal dialysis catheter to achieve bacterial eradication (even though we have not grown a bacteria). 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 Finally a left lower lobe empyema as she has had previous atelectasis/infiltrate and loculated effusion in the left lower lobe dating back to December. Probably some inflammatory biomarkers CT of the chest and a CT of the abdomen and pelvis with and without IV contrast are in order to look for colitis, inflammatory mass within the kidney or infected cyst, empyema or loculated effusion in the chest, and failing all that and we would argue to treat for recurrent culture-negative peritonitis with removal of her PD catheter placement of a cuffed dialysis catheter and placement which she will probably need anyway and conversion to outpatient dialysis. Laboratory Tests 12/24/19 02/24/20 05: 05:00 Cortisol AM Sample 12.3 9.8 Constitutional Vitals: Vital Signs Temp Pulse Resp BP Pulse Ox 36.8 C 96 H 15 123/64 100 02/24/20 14:03 02/24/20 14:03 02/24/20 14:03 02/24/20 14:03 02/24/20 14:03 Period Temp Pulse Resp BP Sys/Hartman Pulse Ox Last 24 Hr 36.3 C-36.8 C 96-103 14-28 102-140/38-65 93-100 Intake and Output 02/24/20 02/24/20 02/24/20 05:59 13:59 21:59 Intake Total 417 840 Output Total 250 201 Balance 167 639 Weight 64.864 kg 64.864 kg Patient Weight 02/25/20 05:59 Weight 64.864 kg Intake & Output: Intake & Output 02/24/20 02/24/20 02/24/20 05:59 13:59 21:59 Intake Total 417 840 Output Total 250 201 Balance 167 639 Weight 64.864 kg 64.864 kg Intake: Oral 417 840 Output: Void Amount 250 200 # of times incontinent of urine 1 Other: Meal Lunch Percent of Meal Consumed 75% Feeding Ability Independent Urine Appearance Clear Clear Urine Color Pale Bright Yellow Urine Odor Normal Stool Size Moderate Stool Color Brown Green # Bowel Movements 1 General appearance: average body habitus and mild distress Exam: Surprisingly nontoxic Head Head exam: Present atraumatic; Absent normocephalic Additional comments: Eye Additional comments: Pupils equal round react to light Anicteric sclera ENT ENT exam: Present mucous membranes moist Neck Neck exam: Present full ROM and normal inspection Respiratory Respiratory exam: Present normal respiratory exam and rhonchi Additional comments: Labs from prior sounds at the left base with increased dullness Cardiovascular Cardiovascular exam: Present normal rate and rhythm, +S1 and +S2; Absent gallop and rubs Additional comments: No elevated JVD GI/Abdominal GI/Abdominal exam: Present normal bowel sounds; Absent bruit, guarding and tenderness Additional comments: Benign exam Extremities Exam Extremities exam: Absent calf tenderness, full ROM, normal inspection and pedal edema Back Exam Additional comments: No CVAT Neurological Exam Neurological exam: Present alert, CN II-XII intact and oriented X3 Additional comments: Sitting up in bed gait not tested Psychiatric Psychiatric exam: Present normal affect Additional comments: Tearful when discussing end-of-life issues Skin Skin exam: Present dry; Absent pallor and rash A/P Assessment and plan (1) ESRD on peritoneal dialysis: Status: Chronic Comment: 1. We will try a 20 L overnight exchanges using 1400 cc tidal volumes x 10 her 2. Echo her has no one to help her at home and she is having a difficult time manipulating 6 L bags of fluid at home. 1 option would be to switch to CAPD which would require only a 2 L bag with 4 exchanges a day, this is predicated on the fact that she does not have to have her peritoneal dialysis catheter removed and I must admit her abdomen is pretty benign to my exam. 3. Discuss further with the patient and PD nurse tomorrow (2) Abdominal pain: Status: Chronic Comment: 1. The abdomen and her clinical situation does not appear to be acute peritonitis in my mind 2. She may be his best served with a CT of the chest without contrast and a CT of the abdomen pelvis with and without contrast looking for alternative causes of pain and infection outlined above in the HPI (3) Secondary hyperparathyroidism of renal origin: Status: Chronic Comment: PTH 286 at goal foR Stage V CKD calcium at goal Phos improved to 5 She is on Renvela which was increased to 2 tablets with meals Vit D is low at 19; continue Vit D3 at 5000 units daily calcitriol reduced to 0.25mcg MWF Ct SENSIPAR 30mg bid Pt will keep a careful watch on her diet. (4) Peritonitis associated with peritoneal dialysis: Status: Chronic Comment: 1. Symptomatic this year this patient has had recurrent peritonitis based on PMNs in her peritoneal fluid, complaints of abdominal pain but is been culture negative to this point. Then rule out peritoneal dialysis related peritonitis there are other explanations for abdominal pain and white cells in her PD fluid and may require further explanation exploration Time Spent With Patient Time: Total time spent is greater than 50% in coordination of care (as documented) at patient's floor/unit and/or counseling patient:
[2020-02-24] MEDS ORDERED: ONDANSETRON 4 MG ODT TABLET SL PRN (16:58)
[2020-02-24] MEDS ORDERED: ACETAMINOPHEN PO PRN (16:58)
[2020-02-24] MEDS ORDERED: glipiZIDE 5 MG TABLET PO PRN ×2 (16:58)
[2020-02-24] MEDS ORDERED: ACETAMINOPHEN 650 MG/65 ML BOTTLE IV PRN (16:58)
[2020-02-24] MEDS ORDERED: ONDANSETRON 4 MG/2 ML VIAL IV PRN (16:58)
[2020-02-24] MEDS ORDERED: PROMETHAZINE 25 MG TABLET PO PRN (16:58)
[2020-02-24] MEDS ORDERED: NOREPINEPHRINE BITARTRATE 16 MG in 0.9 % SODIUM CHLORIDE 234 ML IV PRN (16:58)
[2020-02-24] MEDS ORDERED: LACTOBACILLUS 1 CAPSULE PO PRN (16:58)
[2020-02-24] MEDS ORDERED: cefTAZidime 1 GM VIAL IP ONE ×2 (16:58→20:00)
[2020-02-24] MEDS ORDERED: POLYETHYLENE GLYCOL 3350 17 GM PACKET PO PRN (16:58)
[2020-02-24] MEDS ORDERED: FLUTICASONE/SALMETEROL 250/50 INHALER #14 INH PRN (16:58)
[2020-02-24] MEDS ORDERED: BISACODYL 10 MG SUPP.RECT PR PRN (16:58)
[2020-02-24] MEDS ORDERED: LOPERAMIDE 2 MG CAPSULE PO PRN (16:58)
[2020-02-24] MEDS ORDERED: VANCOMYCIN 500 MG VIAL IP SCH (17:00)
[2020-02-24] MEDS ORDERED: PATIENTS OWN MEDICATION 1 DOSE MISCELL TOPICAL PRN (17:35)
[2020-02-24] MEDS: ATORVASTATIN 20 MG TABLET PO SCH (20:20)
[2020-02-24] MEDS: rOPINIRole 0.25 MG TABLET PO SCH (20:20)
[2020-02-24] MEDS: HERBAL DRUGS PO SCH (20:22)
[2020-02-24] MEDS ORDERED: SENNOSIDES/DOCUSATE SODIUM 1 TAB TABLET PO SCH (21:00)
[2020-02-24] MEDS: MELATONIN 3 MG TABLET PO PRN (23:38)
[2020-02-25] MEDS: 0.9 % SODIUM CHLORIDE 10 ML SYRINGE IV SCH ×3 (05:30→20:44)
[2020-02-25 07:08] LABS: Hematocrit 28.9 % (34.1-44.9); Hemoglobin 9.2 g/dL (11.2-15.7); Mean Cell Volume 86.8 fL (80.0-100.0); Mean Corpuscular HGB Conc 31.8 g/dL (31.0-36.0); Mean Platelet Volume 8.6 fL (7.4-10.4); Platelet Count 557 K/mcL (140-440); RBC 3.33 M/mcL (3.59-5.38); Red Cell Distribution Width 14.6 % (11.5-14.5); WBC 11.5 K/mcL (4.50-11.00)
[2020-02-25 07:33] LABS: ALT/SGPT 10 U/l (0-40); AST/SGOT 16 U/l (0-37); Albumin 2.3 gm/dL (3.2-5.2); Albumin/Globulin Ratio 0.9 (1.0-2.3); Alkaline Phosphatase 99 U/L (39-117); Bilirubin,Direct < 0.2 mg/dL (0.0-0.3); Bilirubin,Total < 0.2 mg/dL (0.0-1.0); Blood Urea Nitrogen 50 mg/dl (8-23); Calcium 8.6 mg/dl (8.6-10.4); Carbon Dioxide 24 mmol/L (22-30); Globulin 2.6 gm/dL (2.2-3.7); Glucose 116 mg/dL (70-105); Lactate Dehydrogenase 223 U/L (94-250); Phosphorous 4.3 mg/dL (2.7-4.5); Triglycerides 67 mg/dl (<150); Uric Acid 5.1 mg/dL (2.5-8.0)
[2020-02-25 07:47] LABS: Chloride 94 mmol/L (96-108); Glomerular Filtration Rate 6
[2020-02-25 08:28] LABS: Eosinophils % (Manual) 3 % (0-7); Lymphocytes % 18 % (15-49); Monocytes % (Manual) 6 % (1-12); Platelet Estimate INCREASED (NORMAL); RBC Morphology NORMAL (NORMAL); Segmented Neutrophils % 73 % (38-78)
[2020-02-25] MEDS: INSULIN LISPRO 1 UNIT/0.01 ML UNIT SQ SCH ×4 (09:34→20:46)
[2020-02-25] MEDS: ASPIRIN 81 MG TAB.CHEW PO SCH (09:39)
[2020-02-25] MEDS: HEPARIN 5,000 UNIT/ML VIAL SQ SCH ×2 (09:39→20:42)
[2020-02-25] MEDS: SEVELAMER 800 MG TABLET PO SCH ×4 (09:39→16:55)
[2020-02-25] MEDS: ASCORBIC ACID 500 MG TABLET PO SCH (09:39)
[2020-02-25] MEDS: PANTOPRAZOLE 40 MG TABLET PO SCH (09:40)
[2020-02-25] MEDS: POTASSIUM CHLORIDE 20 MEQ TABLET PO SCH ×2 (09:40→10:28)
[2020-02-25] MEDS: MULTIVIT,THER IRON,CA,FA & MIN 1 TABLET PO SCH (09:40)
[2020-02-25] MEDS: METOCLOPRAMIDE 10 MG TABLET PO SCH (09:40)
[2020-02-25] MEDS: DOCUSATE SODIUM 100 MG CAPSULE PO SCH ×4 (09:41→20:34)
[2020-02-25] MEDS: CALCITRIOL 0.25 MCG CAPSULE PO SCH (10:02)
[2020-02-25] MEDS: CINACALCET 30 MG TABLET PO SCH (10:02)
[2020-02-25] MEDS: FERROUS SULFATE 325 MG TABLET PO SCH (10:02)
[2020-02-25] MEDS: VITAMIN D3 1,000 UNIT TABLET PO SCH (10:02)
--- NOTE | 2020-02-25 10:05 | Internal Med Progress Note ---
SUBJECTIVE Subjective Patient information: Note initiated : 02/25/20 at 10:01 am Service Date, if different from initiated Date: [] Patient: Ema Vang a 80 y/o F admitted on 02/22/20 for stomach pain. Chief Complaint: [] History of present illness: Ms. Vang is a 80 year old F with a history of HTN, DM, ESRD on PD with recent episode of peritonitis status post treatment on antibiotics. She presented to [facility] with worsening abdominal pain weakness lightheadedness. Initial work-up was consistent with sepsis with a white count of 16.5/potassium 2.5. CT abdomen shows mild colitis. Due to suspected recurrent peritonitis nephrology was consulted and requested patient be transferred to [facility] ER. Subsequently hospitalist service was consulted for admission. At the time of my evaluation patient is alert and oriented. She is able to answer most of the questions. She Is trying to recover from recent loss of her 2 weeks ago. She has had an appointment with GI but has not been able to follow-up due to recent loss of spouse. Peritoneal fluid was sent for investigation cloudy in appearance. Patient denies associated fever, headache, nausea vomiting or shortness of breath but endorses to intermittent diarrhea. She also denies confusion/joint pain/rash --02/22-patient doing better. White count down to 15.2, potassium up from 2.5- >3.3. Creatinine 5.7. Restarted on home medications. Await peritoneal fluid culture/cell count. On antibiotic coverage as per nephrology. Blood sugars at goal. 02/23-patient is white count 6000+. However improving with antibiotic coverage and repeat white count down to 3500. Peripheral white count down to 11,000. Abdominal pain improving. More alert lucid. Ongoing peritoneal dialysis. Potassium improved to 3.5. No other concerns expressed by nursing staff. Interval history: Narrative: 02/24 patient doing well. White count 11.5. On antibiotic coverage per nephrology for culture-negative peritonitis. Ongoing peritoneal dialysis. Nontoxic. Stable labs and hemodynamics Interval history: Narrative: Constitutional Vitals: Vital Signs Temp Pulse Resp BP Pulse Ox 98.3 F 95 H 14 113/58 98 02/25/20 08:01 02/25/20 08:01 02/25/20 08:01 02/25/20 08:01 02/25/20 08:01 Period Temp Pulse Resp BP Sys/Hartman Pulse Ox Last 24 Hr 97.8 F-98.6 F 85-100 13-26 113-137/44-82 91-100 Intake and Output 02/24/20 02/25/20 02/25/20 21:59 05:59 13:59 Intake Total 100 120 50 Output Total 110 100 Balance -10 20 50 Weight 65.771 kg Alert oriented Nonlabored breathing No lymphedema Minimally tender abdomen Intake & Output: Intake & Output 02/24/20 02/25/20 02/25/20 21:59 05:59 13:59 Intake Total 100 120 50 Output Total 110 100 Balance -10 20 50 Weight 65.771 kg Intake: Oral 100 120 50 Output: Void Amount 110 100 Other: Urine Appearance Clear Clear Urine Color Bright Yellow Bright Yellow Stool Size Small Stool Color Green Stool Consistency Soft # Bowel Movements 1 OBJ DATA Labs CBC & Chem 7: 02/25/20 04:22 02/25/20 04:22 Labs: Abnormal Lab Results 02/25/20 02/25/20 02/25/20 04:22 04:22 04:22 WBC RBC Hgb Hct MCHC RDW Plt Count Seg Neutrophils % Lymphocytes % RBC Morphology Hypochromasia Anisocytosis ESR 40 H Sodium Chloride Carbon Dioxide Anion Gap BUN Creatinine Glucose Calcium Phosphorus Magnesium C-Reactive Protein 9.7 H Total Protein Albumin Albumin/Globulin Ratio PTH Intact 298.4 H Urine Protein Ur Leukocyte Esterase Urine RBC Urine WBC Ur Squamous Epith Cells Urine Bacteria Urine Yeast (Budding) 02/25/20 02/25/20 02/24/20 04:22 04:22 05:00 WBC 11.5 H RBC 3.33 L Hgb 9.2 L Hct 28.9 L MCHC RDW 14.6 H Plt Count 557 H Seg Neutrophils % Lymphocytes % RBC Morphology Hypochromasia Anisocytosis ESR Sodium 129 L Chloride 94 L 92 L Carbon Dioxide 20 L Anion Gap 17.0 H BUN 50 H 54 H Creatinine 6.0 H* 6.3 H* Glucose 116 H Calcium 8.3 L Phosphorus 4.8 H Magnesium 1.4 L C-Reactive Protein Total Protein 4.9 L 4.6 L Albumin 2.3 L 1.7 L Albumin/Globulin Ratio 0.9 L 0.6 L PTH Intact Urine Protein Ur Leukocyte Esterase Urine RBC Urine WBC Ur Squamous Epith Cells Urine Bacteria Urine Yeast (Budding) 02/24/20 02/23/20 02/23/20 05:00 08:30 05:00 WBC RBC 3.32 L Hgb 9.2 L Hct 29.5 L MCHC RDW 14.7 H Plt Count 517 H Seg Neutrophils % Lymphocytes % RBC Morphology Hypochromasia Anisocytosis ESR Sodium 127 L Chloride 93 L Carbon Dioxide 21 L Anion Gap BUN 49 H Creatinine 5.7 H* Glucose Calcium 8.0 L Phosphorus Magnesium 1.1 L C-Reactive Protein Total Protein 4.7 L Albumin 1.7 L Albumin/Globulin Ratio 0.6 L PTH Intact Urine Protein 30 A Ur Leukocyte Esterase 250 A Urine RBC 24 H Urine WBC 50 H Ur Squamous Epith Cells 19 H Urine Bacteria Mod A Urine Yeast (Budding) Many A 02/23/20 05:00 WBC 15.2 H RBC 3.38 L Hgb 9.2 L Hct 30.2 L MCHC 30.5 L RDW 14.6 H Plt Count 448 H Seg Neutrophils % 82 H Lymphocytes % 10 L RBC Morphology Abnorm A Hypochromasia 1+ A Anisocytosis 1+ A ESR Sodium Chloride Carbon Dioxide Anion Gap BUN Creatinine Glucose Calcium Phosphorus Magnesium C-Reactive Protein Total Protein Albumin Albumin/Globulin Ratio PTH Intact Urine Protein Ur Leukocyte Esterase Urine RBC Urine WBC Ur Squamous Epith Cells Urine Bacteria Urine Yeast (Budding) Meds: Medications Acetaminophen (Tylenol) 650 mg PO Q4-6HP PRN; Protocol PRN Reason: Per Pain Protocol/Fever > 101 Ascorbic Acid (Vitamin C) 500 mg PO DAILY [facility] Last Admin: 02/25/20 09:39 Dose: 500 mg Documented by: Aspirin (Aspirin) 81 mg PO QDAY [facility] Last Admin: 02/25/20 09:39 Dose: 81 mg Documented by: Atorvastatin Calcium (Lipitor) 20 mg PO QHS [facility] Last Admin: 02/24/20 20:20 Dose: 20 mg Documented by: Bisacodyl (Dulcolax) 10 mg ND Q2-3DAYS PRN PRN Reason: Constipation Calcitriol (Rocaltrol) 0.25 mcg PO QDAY [facility] Cinacalcet (Sensipar) 60 mg PO BID [facility] Last Admin: 02/24/20 20:20 Dose: 60 mg Documented by: Diagnostic Test (Pha) (Accu-Chek) 1 each FS ACHS [facility] Last Admin: 02/25/20 07:12 Dose: 1 each Documented by: Docusate Sodium (Colace) 100 mg PO BID [facility] Last Admin: 02/25/20 09:41 Dose: Not Given Documented by: Docusate Sodium (Colace) 100 mg PO BID [facility] Last Admin: 02/25/20 09:41 Dose: Not Given Documented by: Ferrous Sulf[facility] ([facility]ous Sulfate) [facility] Glipizide (Glucotrol) 2.5 mg PO QAM PRN PRN Reason: Blood Sugar - High Glipizide (Glucotrol) 5 mg PO QPM PRN PRN Reason: Blood Sugar - High Heparin Sodium (Porcine) (Heparin) 5,000 unit SQ Q12 [facility] Last Admin: 02/25/20 09:39 Dose: 5,000 unit Documented by: Acetaminophen (Ofirmev) 650 mg in 65 mls @ 130 mls/hr IV Q6HP PRN; Protocol PRN Reason: Per Pain Protocol/Fever > 101 Norepinephrine Bitartrate 16 (mg/ Sodium Chloride) 250 mls @ 9.375 mls/hr IV Q24HP PRN; Protocol PRN Reason: Hypotension Insulin Human Lispro (Humalog) 0 unit SQ ACHS [facility]; Protocol Last Admin: 02/25/20 09:34 Dose: Not Given Documented by: Iron Carb/Multivit/[place]/Folic Acid (Multivitamin W/Minerals) 1 tab PO DAILY [facility] Last Admin: 02/25/20 09:40 Dose: 1 tab Documented by: Lactobacillus Rhamnosus (Culturelle) 1 cap PO DAILYP PRN PRN Reason: Loose Stool Loperamide HCl (Imodium) 2 mg PO Q6HP PRN PRN Reason: Diarrhea Melatonin (Melatonin 3mg Tablet) 3 mg PO HSP PRN PRN Reason: Insomnia Last Admin: 02/24/20 23:38 Dose: 3 mg Documented by: Metoclopramide HCl (Reglan) 5 mg PO [facility] Last Admin: 02/25/20 09:40 Dose: 5 mg Documented by: Ondansetron HCl (Zofran Odt) 4 mg SL Q4-6HP PRN; Protocol PRN Reason: Nausea And Vomiting Ondansetron HCl (Zofran) 4 mg IV Q4-6HP PRN; Protocol PRN Reason: Nausea And Vomiting Pantoprazole Sodium (Protonix) 40 mg PO QAMAC [facility] Last Admin: 02/25/20 09:40 Dose: 40 mg Documented by: Leg Cramp Medication 2 dose SL BID [facility] Last Admin: 02/24/20 20:53 Dose: Not Given Documented by: Patient Own Medication () 1 dose TOPICAL DAILYP PRN PRN Reason: ARTHRITIS Polyethylene Glycol (Miralax) 17 gm PO DAILYP PRN PRN Reason: Constipation Potassium Chloride (Kdur) 20 meq PO QAMCC [facility] Last Admin: 02/25/20 09:40 Dose: 20 meq Documented by: Promethazine HCl (Phenergan) 25 mg PO Q6H PRN PRN Reason: Vomiting Ropinirole HCl (Requip) 0.25 mg PO [facility] Last Admin: 02/24/20 20:20 Dose: 0.25 mg Documented by: Fluticasone/Salmeterol (Advair 250-50 Diskus) 1 - 2 puff INH Q12HP PRN PRN Reason: Shortness Of Breath Senna/Docusate Sodium (Senna Plus Tablet) 1 tab PO [facility] Last Admin: 02/24/20 20:21 Dose: Not Given Documented by: Sevelamer Carbonate (Renvela) 1,600 mg PO [facility] Last Admin: 02/25/20 09:39 Dose: 1,600 mg Documented by: Sodium Chloride (Saline Flush) 10 ml IV Q8 [facility] Last Admin: 02/25/20 05:30 Dose: 10 ml Documented by: Vancomycin HCl (Vancomycin) 360 mg IP UD [facility]; Protocol Last Admin: 02/24/20 20:23 Dose: 360 mg Documented by: Vitamin D (Vitamin D3) 2,000 unit PO DAILY [facility] A/P Assessment and plan (1) Peritonitis associated with peritoneal dialysis: Status: Chronic Narrative A/P Narrative: * Culture negative peritoneal dialysis related peritonitis-initial peritoneal fluid count over 6000. Clinical improvement noted on antibiotic coverage per nephrology. Recurrent episodes over the last 3 months. * ESRD on PD managed per nephrology * Severe sepsis clinically resolved. White count downtrending * Hypokalemia resolved. * Low magnesium resolved with replacement * History of esophageal stricture on barium/Mild colitis on CT abdomen.Patient scheduled to follow-up with GI Dr. Quiroz as outpatient. Continue dysphagia diet/ST eval * Recurrent spasms/restless leg -improved and OTC medication * History of COPD-continue home bronchodilators * History of HTN hold antihypertensives * Hyperlipidemia -Continue statin * DM type II continue basal prandial insulin/CC diet * GERD continue PPI * Full code * Prophylax Heparin Plan * Continue antibiotic coverage per nephrology * Pre-existing medical condition management On home medications * Nutrition support/PT * ST eval/dysphagia diet * Discharge planning per nephrology/case management Time Spent With Patient Time: Total time spent is greater than 50% in coordination of care (as documented) at patient's floor/unit and/or counseling patient:
[2020-02-25] MEDS: HERBAL DRUGS PO SCH (10:28)
[2020-02-25] MEDS: [UNRECOGNIZED DRUG - OTHER] SL SCH ×2 (10:29→20:44)
[2020-02-25] MEDS ORDERED: IOPAMIDOL 100 ML BOTTLE IV ONE (13:35)
--- NOTE | 2020-02-25 14:08 | Cat Scan Report ---
INDICATION: Left pleural effusion. COMPARISON: Previous chest x-rays dated 12/25/2019 and 10/04/2018. Previous abdominal CT scans dated 12/23/2019 and 10/06/2018 TECHNIQUE: Axial noncontrast enhanced images through the chest. Sagittally and coronally reformatted images. MIP reformatted images. Intravenous contrast material was not administered FINDINGS: Lungs:There is centrilobular emphysema. Appearance is consistent with smoking. Clinical correlation necessary Negative right lung. There is no focal mass. No consolidation. There is a benign calcification in the right lower lobe There is pulmonary parenchymal density at the left lung base. This is in the lingular segment of left upper lobe and left lower lobe. Appearance is most consistent with benign volume loss and is unchanged since 12/23/2019. It is worse since 10/06/2018. Mediastinum, vascular:No pathologic mediastinal or hilar adenopathy Severe atherosclerotic calcification of the thoracic aorta. No aneurysmal dilatation. Heart:No significant cardiomegaly. No pericardial effusion. Very severe calcified coronary artery disease Pleura:Small dependent left pleural effusion. No evidence for significant loculation Axilla, supraclavicular regions, chest wall:No axillary or supraclavicular adenopathy. Musculoskeletal:There is ossification of the anterior longitudinal ligament. Ankylosing spondylitis is possible. There is no pseudoarthrosis. No compression fracture. No rib or sternal lesion Upper Abdomen:Abdominal CT scan is pending IMPRESSION: 1. Chronic left lower lobe and lingular volume loss 2. Small left pleural effusion 3. Centrilobular emphysema 4. Severe atherosclerotic disease The exam was performed using radiation dose optimization techniques including, but not limited to, automated exposure control, adjustment of the mA and/or kV according to patient size and use of iterative reconstruction technique. Interpreted and Authenticated by: Kolby Dover 02/25/20
--- NOTE | 2020-02-25 14:18 | Cat Scan Report ---
INDICATION: Infected Renal Cyst or Colitis COMPARISON: Previous CT scans dated 12/23/2019 and 10/06/2018 TECHNIQUE: Pre and postcontrast axial images were obtained through the abdomen and pelvis. Sagittally and coronally reformatted images. 100 mL of contrast injected intravenously. FINDINGS: Lung bases:Small left pleural effusion and left basilar volume loss Liver:5 mm low-density abnormality in the left lobe of the liver. This has a benign appearance and is unchanged. No other focal abnormality. Liver contour is smooth Gallbladder, bilary:Gallbladder is not distended. No calcified gallstones. No dilated bile ducts Spleen:There are benign calcifications. No splenomegaly. Normal enhancing splenic portal veins Pancreas:No pancreatic mass. No peripancreatic abnormality Adrenal glands:Negative Kidneys, ureters, bladder: Multiple large renal cysts bilaterally. Appearance is consistent with adult polycystic kidney disease. No solid mass. No interval change. There is no hydronephrosis. No hydroureter. No ureteral stone No bladder calculi. Bladder is collapsed Gastrointestinal:No detectable colonic mass. There is no diverticulitis. Small bowel is negative. No mechanical small bowel obstruction. Stomach and duodenum are within normal limits Appendix: The appendix is negative Vascular:There is severe atherosclerotic calcification. The abdominal aorta is densely calcified. There is no abdominal aortic aneurysm. Calcification of the origin of the superior mesenteric artery. Stenosis is possible. Origin of the celiac trunk appears negative. Renal arteries are densely calcified. Lymphatic:Negative. No retroperitoneal or mesenteric adenopathy Mesentery, peritoneum:There is a peritoneal dialysis catheter within the abdomen. There is moderate free fluid within the peritoneal space. There are peritoneal gas bubbles which is an expected finding with hemodialysis. There is no intra-abdominal abscess. Reproductive:Uterus is not identified. No adnexal mass Musculoskeletal:Previous posterior spinal fusion from L2 through L4. No acute lumbar compression fractures. Sacrum is negative. No fracture. No lytic lesion. Pelvis and hips are negative IMPRESSION: 1. Adult polycystic kidney disease. No solid mass 2. Peritoneal dialysis catheter is present. There is moderate free fluid and mild pneumoperitoneum. No intra-abdominal abscess 3. No significant interval change The exam was performed using radiation dose optimization techniques including, but not limited to, automated exposure control, adjustment of the mA and/or kV according to patient size and use of iterative reconstruction technique. Interpreted and Authenticated by: Kolby Dover 02/25/20
--- NOTE | 2020-02-25 17:05 | Nephrology Progress Note ---
SUBJECTIVE Subjective Patient information: Note initiated : 02/25/20 at 5:01 pm Service Date, if different from initiated Date: [] Patient: Ema Vang 80 y/o F admitted on 02/22/20 for stomach pain. Chief Complaint: [abd pain] Interval history: Narrative: White count in the peritoneal fluid is declining. No culture positive results. There is no radiographic evidence of diverticulitis or abscess. 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 She does not look toxic and for this reason and the lack of any culture data to suggest infection I would like to stop her antibiotics and observe her prior to discharge. Based on the CT scan the most likely diagnosis would be ischemic bowel disease given the heavy calcification of her abdominal vasculature. There was no evidence of ischemia or ischemic colitis at this time just pain. On back to longer well times since she has problems with fluid draining out of her abdomen, there are no reports of any fibrin stranding in the PD fluid, and she is on a bowel regimen to keep her from becoming constipated and interfering with her PD fluid outflow. Laboratory Tests 02/25/20 02/25/20 02/25/20 04:22 04:22 04:22 WBC 11.5 H Hgb 9.2 L Hct 28.9 L MCV 86.8 Plt Count 557 H Eosinophils % (Manual) 3 ESR 40 Sodium 133 Potassium 3.4 Chloride 94 L Carbon Dioxide 24 Anion Gap 15.0 BUN 50 H Creatinine 6.0 H* GFR Calculation 6 Glucose 116 H Uric Acid 5.1 Calcium 8.6 Phosphorus 4.3 C-Reactive Protein 9.[address] ABD and Pelvis +/- IVC: Lung bases:Small left pleural effusion and left basilar volume loss Liver:5 mm low-density abnormality in the left lobe of the liver. This has a benign appearance and is unchanged. No other focal abnormality. Liver contour is smooth Gallbladder, bilary:Gallbladder is not distended. No calcified gallstones. No dilated bile ducts Spleen:There are benign calcifications. No splenomegaly. Normal enhancing splenic portal veins Pancreas:No pancreatic mass. No peripancreatic abnormality Adrenal glands:Negative Kidneys, ureters, bladder: Multiple large renal cysts bilaterally. Appearance is consistent with adult polycystic kidney disease. No solid mass. No interval change. There is no hydronephrosis. No hydroureter. No ureteral stone No bladder calculi. Bladder is collapsed Gastrointestinal:No detectable colonic mass. There is no diverticulitis. Small bowel is negative. No mechanical small bowel obstruction. Stomach and duodenum are within normal limits Appendix: The appendix is negative Vascular:There is severe atherosclerotic calcification. The abdominal aorta is densely calcified. There is no abdominal aortic aneurysm. Calcification of the origin of the superior mesenteric artery. Stenosis is possible. Origin of the celiac trunk appears negative. Renal arteries are densely calcified. Lymphatic:Negative. No retroperitoneal or mesenteric adenopathy Mesentery, peritoneum:There is a peritoneal dialysis catheter within the abdomen. There is moderate free fluid within the peritoneal space. There are peritoneal gas bubbles which is an expected finding with hemodialysis. There is no intra-abdominal abscess. Reproductive:Uterus is not identified. No adnexal mass Musculoskeletal:Previous posterior spinal fusion from L2 through L4. No acute lumbar compression fractures. Sacrum is negative. No fracture. No lytic lesion. Pelvis and hips are negative IMPRESSION: 1. Adult polycystic kidney disease. No solid mass 2. Peritoneal dialysis catheter is present. There is moderate free fluid and mild pneumoperitoneum. No intra-abdominal abscess 3. No significant interval change CT Chest w/o IVC: Lungs:There is centrilobular emphysema. Appearance is consistent with smoking. Clinical correlation necessary Negative right lung. There is no focal mass. No consolidation. There is a benign calcification in the right lower lobe There is pulmonary parenchymal density at the left lung base. This is in the lingular segment of left upper lobe and left lower lobe. Appearance is most consistent with benign volume loss and is unchanged since 12/23/2019. It is worse since 10/06/2018. Mediastinum, vascular:No pathologic mediastinal or hilar adenopathy Severe atherosclerotic calcification of the thoracic aorta. No aneurysmal dilatation. Heart:No significant cardiomegaly. No pericardial effusion. Very severe calcified coronary artery disease Pleura:Small dependent left pleural effusion. No evidence for significant loculation Axilla, supraclavicular regions, chest wall:No axillary or supraclavicular adenopathy. Musculoskeletal:There is ossification of the anterior longitudinal ligament. Ankylosing spondylitis is possible. There is no pseudoarthrosis. No compression fracture. No rib or sternal lesion Upper Abdomen:Abdominal CT scan is pending IMPRESSION: 1. Chronic left lower lobe and lingular volume loss 2. Small left pleural effusion 3. Centrilobular emphysema 4. Severe atherosclerotic disease Constitutional Vitals: Vital Signs Temp Pulse Resp BP Pulse Ox 36.6 C 111 H 16 98/53 100 02/25/20 16:02 02/25/20 14:10 02/25/20 16:02 02/25/20 16:02 02/25/20 16:02 Period Temp Pulse Resp BP Sys/Hartman Pulse Ox Last 24 Hr 36.6 C-37.0 C 89-111 13-27 93-137/44-100 91-100 Intake and Output 02/25/20 02/25/20 02/25/20 05:59 13:59 21:59 Intake Total 120 50 Output Total 100 350 200 Balance 20 -300 -200 Intake & Output: Intake & Output 02/25/20 02/25/20 02/25/20 05:59 13:59 21:59 Intake Total 120 50 Output Total 100 350 200 Balance 20 -300 -200 Intake: Oral 120 50 Output: Void Amount 100 350 200 Other: Meal Lunch Percent of Meal Consumed 25% Feeding Ability Independent Urine Appearance Clear Clear Clear Urine Color Bright Yellow Pale Pale Urine Odor Normal Normal Stool Size Moderate Stool Color Brown Green Stool Consistency Soft # Bowel Movements 1 Physical Exam: General appearance: average body habitus and mild distress Exam: Surprisingly nontoxic Head Head exam: Present atraumatic; Absent normocephalic Additional comments: Eye Additional comments: Pupils equal round react to light Anicteric sclera ENT exam: Present mucous membranes moist Neck exam: Present full ROM and normal inspection Respiratory exam: Present normal respiratory exam and rhonchi Additional comments: Labs from prior sounds at the left base with increased dullness Cardiovascular exam: Present normal rate and rhythm, +S1 and +S2; Absent gallop and rubs Additional comments: No elevated JVD GI/Abdominal exam: Present normal bowel sounds; Absent bruit, guarding and tenderness Additional comments: Benign exam Extremities Exam Extremities exam: Absent calf tenderness, full ROM, normal inspection and pedal edema Back Exam Additional comments: No CVAT Neurological exam: Present alert, CN II-XII intact and oriented X3 Additional comments: Sitting up in bed gait not tested Psychiatric exam: Present normal affect Additional comments: Tearful when discussing end-of-life issues Skin exam: Present dry; Absent pallor and rash A/P Narrative A/P Narrative: A/P Assessment and plan (1) ESRD on peritoneal dialysis: * Changes in dwell time and volumes to allow better outflow * Good bowel regiment to avoid constipation (2) Abdominal pain: * I think ischemia from vascular calcification * Monitor off abx (3) Secondary hyperparathyroidism of renal origin: * Well controlled (4) Peritonitis associated with peritoneal dialysis: * I do not feel this is peritonitis and have stopped ABx * Continue to trend dialysate WBC * Aboid hypotension Time Spent With Patient Time: Total time spent is greater than 50% in coordination of care (as documented) at patient's floor/unit and/or counseling patient: Time Spent With Patient Time: Total time spent is greater than 50% in coordination of care (as documented) at patient's floor/unit and/or counseling patient:
[2020-02-25] MEDS: SENNOSIDES/DOCUSATE SODIUM 1 TAB TABLET PO SCH (20:34)
[2020-02-25] MEDS: rOPINIRole 0.25 MG TABLET PO SCH (20:42)
[2020-02-25] MEDS: ATORVASTATIN 20 MG TABLET PO SCH (20:42)
[2020-02-25] MEDS: MELATONIN 3 MG TABLET PO PRN (20:42)
[2020-02-25] MEDS: ACETAMINOPHEN 325 MG TABLET PO PRN (20:43)
[2020-02-26] MEDS: 0.9 % SODIUM CHLORIDE 10 ML SYRINGE IV SCH ×3 (05:19→21:27)
[2020-02-26 06:55] LABS: Hemoglobin 9.6 g/dL (11.2-15.7); Mean Cell Volume 88.8 fL (80.0-100.0); Mean Platelet Volume 8.6 fL (7.4-10.4); Platelet Count 571 K/mcL (140-440); RBC 3.49 M/mcL (3.59-5.38); Red Cell Distribution Width 14.8 % (11.5-14.5); WBC 12.5 K/mcL (4.50-11.00)
[2020-02-26] MEDS: PANTOPRAZOLE 40 MG TABLET PO SCH (07:05)
[2020-02-26] MEDS: INSULIN LISPRO 1 UNIT/0.01 ML UNIT SQ SCH ×4 (07:07→21:26)
[2020-02-26 08:04] LABS: ALT/SGPT 11 U/l (0-40); AST/SGOT 18 U/l (0-37); Albumin/Globulin Ratio 0.6 (1.0-2.3); Alkaline Phosphatase 102 U/L (39-117); Bilirubin,Direct < 0.2 mg/dL (0.0-0.3); Bilirubin,Total < 0.2 mg/dL (0.0-1.0); Blood Urea Nitrogen 41 mg/dl (8-23); Calcium 8.9 mg/dl (8.6-10.4); Carbon Dioxide 22 mmol/L (22-30); Chloride 89 mmol/L (96-108); Globulin 3.1 gm/dL (2.2-3.7); Glomerular Filtration Rate 8; Glucose 143 mg/dL (70-105); Lactate Dehydrogenase 259 U/L (94-250); Phosphorous 3.5 mg/dL (2.7-4.5); Triglycerides 70 mg/dl (<150); Uric Acid 4.4 mg/dL (2.5-8.0)
[2020-02-26] MEDS: HEPARIN 5,000 UNIT/ML VIAL SQ SCH ×2 (09:05→21:25)
[2020-02-26] MEDS: CALCITRIOL 0.25 MCG CAPSULE PO SCH (09:05)
[2020-02-26] MEDS: ASPIRIN 81 MG TAB.CHEW PO SCH (09:06)
[2020-02-26] MEDS: FERROUS SULFATE 325 MG TABLET PO SCH (09:06)
[2020-02-26] MEDS: VITAMIN D3 1,000 UNIT TABLET PO SCH (09:06)
[2020-02-26] MEDS: METOCLOPRAMIDE 10 MG TABLET PO SCH (09:06)
[2020-02-26] MEDS: SEVELAMER 800 MG TABLET PO SCH ×3 (09:06→17:30)
[2020-02-26] MEDS: ASCORBIC ACID 500 MG TABLET PO SCH (09:06)
[2020-02-26] MEDS: MULTIVIT,THER IRON,CA,FA & MIN 1 TABLET PO SCH (09:06)
[2020-02-26] MEDS: DOCUSATE SODIUM 100 MG CAPSULE PO SCH ×3 (09:07→21:27)
[2020-02-26] MEDS: CINACALCET 30 MG TABLET PO SCH (09:07)
[2020-02-26] MEDS: POTASSIUM CHLORIDE 20 MEQ TABLET PO SCH (09:07)
[2020-02-26] MEDS: [UNRECOGNIZED DRUG - OTHER] SL SCH ×2 (09:08→21:25)
[2020-02-26] MEDS: SENNOSIDES/DOCUSATE SODIUM 1 TAB TABLET PO SCH (09:08)
[2020-02-26 09:49] LABS: Eosinophils % (Manual) 1 % (0-7); Lymphocytes % 24 % (15-49); Monocytes % (Manual) 6 % (1-12); Platelet Estimate INCREASED (NORMAL); RBC Morphology NORMAL (NORMAL); Segmented Neutrophils % 69 % (38-78)
--- NOTE | 2020-02-26 10:49 | Internal Med Progress Note ---
SUBJECTIVE Subjective Patient information: Note initiated : 02/26/20 at 10:46 am Service Date, if different from initiated Date: [] Patient: Ema Vang a 80 y/o F admitted on 02/22/20 for stomach pain. y of present illness: Ms. Vang is a 80 year old F with a history of HTN, DM, ESRD on PD with recent episode of peritonitis status post treatment on antibiotics. She presented to [facility] with worsening abdominal pain weakness lightheadedness. Initial work-up was consistent with sepsis with a white count of 16.5/potassium 2.5. CT abdomen shows mild colitis. Due to suspected recurrent peritonitis nephrology was consulted and requested patient be transferred to [facility] ER. Subsequently hospitalist service was consulted for admission. At the time of my evaluation patient is alert and oriented. She is able to answer most of the questions. She Is trying to recover from recent loss of her 2 weeks ago. She has had an appointment with GI but has not been able to follow-up due to recent loss of spouse. Peritoneal fluid was sent for investigation cloudy in appearance. Patient denies associated fever, headache, nausea vomiting or shortness of eyal ath but endorses to intermittent diarrhea. She also denies confusion/joint pain/rash --02/22-patient doing better. White count down to 15.2, potassium up from 2.5- >3.3. Creatinine 5.7. Restarted on home medications. Await peritoneal fluid culture/cell count. On antibiotic coverage as per nephrology. Blood sugars at goal. 02/23-patient is white count 6000+. However improving with antibiotic coverage and repeat white count down to 3500. Peripheral white count down to 11,000. Abdominal pain improving. More alert lucid. Ongoing peritoneal dialysis. Potassium improved to 3.5. No other concerns expressed by nursing staff. Interval history: Narrative: 02/24 patient doing well. White count 11.5. On antibiotic coverage per nephrology for culture-negative peritonitis. Ongoing peritoneal dialysis. Nontoxic. Stable labs and hemodynamics 02/25-patient doing a lot better. Ongoing PD. Antibiotic discontinued for nephrology. Patient wondering about discharge plan. Low potassium on replacement. Interval history: Narrative: Constitutional Vitals: Vital Signs Temp Pulse Resp BP Pulse Ox 98.2 F 93 H 17 117/49 99 02/26/20 08:22 02/26/20 08:09 02/26/20 08:09 02/26/20 08:22 02/26/20 08:09 Period Temp Pulse Resp BP Sys/Hartman Pulse Ox Last 24 Hr 96.1 F-98.3 F 93-112 15-30 98-130/49-100 92-100 Intake and Output 02/25/20 02/26/20 02/26/20 21:59 05:59 13:59 Intake Total 800 120 Output Total 425 100 Balance 375 20 Weight 65.005 kg Alert oriented No anxiety Nonlabored breathing Intake & Output: Intake & Output 02/25/20 02/26/20 02/26/20 21:59 05:59 13:59 Intake Total 800 120 Output Total 425 100 Balance 375 20 Weight 65.005 kg Intake: Nourishment/Supplement quantity 360 (ml) Oral 440 120 Output: Void Amount 425 100 Other: Meal Nourishment/Supplement Breakfast Percent of Meal Consumed 100% 25% Feeding Ability Independent Independent Nourishment/Supplement name ice cream Urine Appearance Clear Clear Urine Color Bright Yellow Bright Yellow Urine Odor Normal Stool Size Large Stool Color Brown Green Stool Consistency Loose # Bowel Movements 1 # of times incontinent of 1 Bowels OBJ DATA Labs CBC & Chem 7: 02/26/20 04:45 02/26/20 04:45 Labs: Abnormal Lab Results 02/26/20 02/26/20 02/25/20 04:45 04:45 04:22 WBC 12.5 H RBC 3.49 L Hgb 9.6 L Hct 31.0 L RDW 14.8 H Plt Count 571 H ESR Sodium 127 L Potassium 3.0 L Chloride 89 L Carbon Dioxide Anion Gap BUN 41 H Creatinine 5.0 H Glucose 143 H Calcium Phosphorus Magnesium 1.5 L Lactate Dehydrogenase 259 H C-Reactive Protein 9.7 H Total Protein 5.1 L Albumin 2.0 L Albumin/Globulin Ratio 0.6 L PTH Intact 02/25/20 02/25/20 02/25/20 04:22 04:22 04:22 WBC RBC Hgb Hct RDW Plt Count ESR 40 H Sodium Potassium Chloride 94 L Carbon Dioxide Anion Gap BUN 50 H Creatinine 6.0 H* Glucose 116 H Calcium Phosphorus Magnesium 1.4 L Lactate Dehydrogenase C-Reactive Protein Total Protein 4.9 L Albumin 2.3 L Albumin/Globulin Ratio 0.9 L PTH Intact 298.4 H 02/25/20 02/24/20 02/24/20 04:22 05:00 05:00 WBC 11.5 H RBC 3.33 L 3.32 L Hgb 9.2 L 9.2 L Hct 28.9 L 29.5 L RDW 14.6 H 14.7 H Plt Count 557 H 517 H ESR Sodium 129 L Potassium Chloride 92 L Carbon Dioxide 20 L Anion Gap 17.0 H BUN 54 H Creatinine 6.3 H* Glucose Calcium 8.3 L Phosphorus 4.8 H Magnesium Lactate Dehydrogenase C-Reactive Protein Total Protein 4.6 L Albumin 1.7 L Albumin/Globulin Ratio 0.6 L PTH Intact Meds: Medications Acetaminophen (Tylenol) 650 mg PO Q4-6HP PRN; Protocol PRN Reason: Per Pain Protocol/Fever > 101 Last Admin: 02/25/20 20:43 Dose: 650 mg Documented by: Aspirin (Aspirin) 81 mg PO QDAY [facility] Last Admin: 02/26/20 09:06 Dose: 81 mg Documented by: Atorvastatin Calcium (Lipitor) 20 mg PO QHS [facility] Last Admin: 02/25/20 20:42 Dose: 20 mg Documented by: Bisacodyl (Dulcolax) 10 mg VA Q2-3DAYS PRN PRN Reason: Constipation Calcitriol (Rocaltrol) 0.25 mcg PO QDAY [facility] Last Admin: 02/26/20 09:05 Dose: 0.25 mcg Documented by: Cinacalcet (Sensipar) 60 mg PO QAC [facility] Last Admin: 02/26/20 09:07 Dose: 60 mg Documented by: Diagnostic Test (Pha) (Accu-Chek) 1 each FS ACHS [facility] Last Admin: 02/26/20 07:07 Dose: 1 each Documented by: Docusate Sodium (Colace) 100 mg PO BID [facility] Last Admin: 02/26/20 09:07 Dose: Not Given Documented by: Glipizide (Glucotrol) 2.5 mg PO QAM PRN PRN Reason: Blood Sugar - High Glipizide (Glucotrol) 5 mg PO QPM PRN PRN Reason: Blood Sugar - High Heparin Sodium (Porcine) (Heparin) 5,000 unit SQ Q12 [facility] Last Admin: 02/26/20 09:05 Dose: 5,000 unit Documented by: Acetaminophen (Ofirmev) 650 mg in 65 mls @ 130 mls/hr IV Q6HP PRN; Protocol PRN Reason: Per Pain Protocol/Fever > 101 Norepinephrine Bitartrate 16 (mg/ Sodium Chloride) 250 mls @ 9.375 mls/hr IV Q24HP PRN; Protocol PRN Reason: Hypotension Insulin Human Lispro (Humalog) 0 unit SQ ACHS [facility]; Protocol Last Admin: 02/26/20 07:07 Dose: Not Given Documented by: Iron Carb/Multivit/Cataño/Folic Acid (Multivitamin W/Minerals) 1 tab PO DAILY [facility] Last Admin: 02/26/20 09:06 Dose: 1 tab Documented by: Lactobacillus Rhamnosus (Culturelle) 1 cap PO DAILYP PRN PRN Reason: Loose Stool Magnesium Hydroxide (Milk Of Magnesia) 30 ml PO DAILY [facility] Melatonin (Melatonin 3mg Tablet) 3 mg PO HSP PRN PRN Reason: Insomnia Last Admin: 02/25/20 20:42 Dose: 3 mg Documented by: Metoclopram[facility] (Reglan) [facility] [place] Last Admin: 02/26/20 09:06 Dose: 5 mg Documented by: Ondansetron HCl (Zofran Odt) 4 mg SL Q4-6HP PRN; Protocol PRN Reason: Nausea And Vomiting Ondansetron HCl (Zofran) 4 mg IV Q4-6HP PRN; Protocol PRN Reason: Nausea And Vomiting Pantoprazole Sodium (Protonix) 40 mg PO QAMAC [facility] Last Admin: 02/26/20 07:05 Dose: 40 mg Documented by: Leg Cramp Medication 2 dose SL BID [facility] Last Admin: 02/26/20 09:08 Dose: Not Given Documented by: Patient Own Medication () 1 dose TOPICAL DAILYP PRN PRN Reason: ARTHRITIS Polyethylene Glycol (Miralax) 17 gm PO DAILYP PRN PRN Reason: Constipation Potassium Chloride (Potassium Chloride) 30 meq PO BIDCC [facility] Promethazine HCl (Phenergan) 25 mg PO Q6H PRN PRN Reason: Vomiting Ropinirole HCl (Requip) 0.25 mg PO HS [facility] Last Admin: 02/25/20 20:42 Dose: 0.25 mg Documented by: Fluticasone/Salmeterol (Advair 250-50 Diskus) 1 - 2 puff INH Q12HP PRN PRN Reason: Shortness Of Breath Sevelamer Carbonate (Renvela) 1,600 mg PO TIDCC [facility] Last Admin: 02/26/20 09:06 Dose: 1,600 mg Documented by: Sodium Chloride (Saline Flush) 10 ml IV Q8 [facility] Last Admin: 02/26/20 05:19 Dose: 10 ml Documented by: Vancomycin HCl (Vancomycin) 360 mg IP UD [facility]; Protocol Last Admin: 02/24/20 20:23 Dose: 360 mg Documented by: Vitamin D (Vitamin D3) 2,000 unit PO DAILY [facility] Last Admin: 02/26/20 09:06 Dose: 2,000 unit Documented by: A/P Narrative A/P Narrative: * Culture negative PD related peritonitis-antibiotics discontinued per nephrology. * ESRD on PD managed per nephrology * Severe sepsis clinically resolved. White count normalizing * Hypokalemia replace per nephrology. * Low magnesium resolved with replacement * History of esophageal stricture on barium/Mild colitis on CT abdomen.Patient scheduled to follow-up with GI Dr. Quiroz as outpatient. Continue dysphagia diet/ST eval * Recurrent spasms/restless leg -improved and OTC medication * History of COPD-continue home bronchodilators * History of HTN hold antihypertensives * Hyperlipidemia -Continue statin * DM type II continue basal prandial insulin/CC diet * GERD continue PPI * Full code * Prophylax Heparin Plan * Pre-existing medical condition management on home medications * Nutrition support/PT * ST eval/dysphagia diet * Discharge planning per nephrology/case management Time Spent With Patient Time: Total time spent is greater than 50% in coordination of care (as documented) at patient's floor/unit and/or counseling patient:
[2020-02-26] MEDS ORDERED: POTASSIUM CHLORIDE 20 MEQ/15 ML ML PO ONE (11:06)
--- NOTE | 2020-02-26 13:46 | Nephrology Progress Note ---
SUBJECTIVE Subjective Patient information: Note initiated : 02/26/20 at 1:36 pm Service Date, if different from initiated Date: [] Patient: Ema Vang 80 y/o F admitted on 02/22/20 for stomach pain. Chief Complaint: [] Interval history: Narrative: Clinically improved abdominal pain. No clear evidence of peritonitis in terms of bacterial growth or Gram stain. I guess I would treat like a "sympathetic" peritoneal reaction from perhaps previous colitis, ischemic colitis or complications of ADCKD with cyst infection and/or leakage. She can be followed as an outpatient has an appointment with Dr. Gonzales on Monday in the PD clinic. My recommendations would be as follows Discharge on KCl elixir 15 mEq twice a day Milk of magnesia 30 cc a day to do double duty as magnesium replacement and for bowel hygiene Continue Colace 100 mg twice a day Ciprofloxacin 500 mg orally daily for 7 days Needs discharge follow-up with Dr. Quiroz for esophageal dysmotility and possible dilation of esophageal stricture Reduce her Sensipar to just 60 mg once a day instead of twice a day She should resume her usual dialysis prescription and continue her intraperitoneal nutritional supplement which she receives at home Constitutional Vitals: Vital Signs Temp Pulse Resp BP Pulse Ox 36.9 C 93 H 13 113/58 98 02/26/20 12:11 02/26/20 08:09 02/26/20 12:11 02/26/20 12:11 02/26/20 12:11 Period Temp Pulse Resp BP Sys/Hartman Pulse Ox Last 24 Hr 35.6 C-36.9 C 93-112 13-30 98-130/49-68 92-100 Intake and Output 02/25/20 02/26/20 02/26/20 21:59 05:59 13:59 Intake Total 800 120 Output Total 425 100 Balance 375 20 Weight 65.005 kg Intake & Output: Intake & Output 02/25/20 02/26/20 02/26/20 21:59 05:59 13:59 Intake Total 800 120 Output Total 425 100 Balance 375 20 Weight 65.005 kg Intake: Nourishment/Supplement quantity 360 (ml) Oral 440 120 Output: Void Amount 425 100 Other: Meal Nourishment/Supplement Breakfast Percent of Meal Consumed 100% 25% Feeding Ability Independent Independent Nourishment/Supplement name ice cream Urine Appearance Clear Clear Urine Color Bright Yellow Bright Yellow Urine Odor Normal Stool Size Large Stool Color Brown Green Stool Consistency Loose # Bowel Movements 1 # of times incontinent of 1 Bowels General appearance: cooperative and no acute distress Exam: Nontoxic-appearing HEENT: Equal round reactive pupils extraocular muscles are intact sclerae anicteric Neck: No elevated JVD Chest: Decreased breath sounds at the left base otherwise clear COR: Normal S1 and S2 without an S3 no murmur gallop or rub ABD: Bowel sounds present no particular tender area no CVA tenderness normal active bowel sounds EXT: Trace edema Neuro: Alert and oriented x3 nonfocal exam A/P Narrative A/P Narrative: 1. Okay for discharge home with changes outlined below: Discharge on KCl elixir 15 mEq twice a day Milk of magnesia 30 cc a day to do double duty as magnesium replacement and for bowel hygiene Continue Colace 100 mg twice a day Ciprofloxacin 500 mg orally daily for 7 days Needs discharge follow-up with Dr. Quiroz for esophageal dysmotility and possible dilation of esophageal stricture Reduce her Sensipar to just 60 mg once a day instead of twice a day She should resume her usual dialysis prescription and continue her intraperitoneal nutritional supplement which she receives at home Time Spent With Patient Time: Total time spent is greater than 50% in coordination of care (as documented) at patient's floor/unit and/or counseling patient:
[2020-02-26 14:54] LABS: Eosinophils,Peritoneal Fluid 1 %; Mesothelial,Peritoneal Fluid 1 %; Monocyte,Peritoneal Fluid 26 %; Neutrophils,Peritoneal Fluid 22 %; Nucleated Cel,Peritoneal Fluid 23 /cumm; RBC,Peritoneal Fluid < 50000 /cumm
[2020-02-26] MEDS: POTASSIUM CHLORIDE 20 MEQ/15 ML ML PO SCH (18:51)
[2020-02-26] MEDS ORDERED: SULFAMETHOXAZOLE/TRIMETHOPRIM 1 TABLET PO SCH (21:00)
[2020-02-26] MEDS: ATORVASTATIN 20 MG TABLET PO SCH (21:25)
[2020-02-26] MEDS: rOPINIRole 0.25 MG TABLET PO SCH (21:25)
[2020-02-26] MEDS: MELATONIN 3 MG TABLET PO PRN (21:34)
[2020-02-27] MEDS: ACETAMINOPHEN 325 MG TABLET PO PRN (04:00)
[2020-02-27] MEDS: 0.9 % SODIUM CHLORIDE 10 ML SYRINGE IV SCH (05:56)
[2020-02-27 06:37] LABS: Hematocrit 32.1 % (34.1-44.9); Hemoglobin 9.9 g/dL (11.2-15.7); Mean Cell Volume 88.9 fL (80.0-100.0); Mean Corpuscular HGB Conc 30.8 g/dL (31.0-36.0); Mean Platelet Volume 8.7 fL (7.4-10.4); Platelet Count 581 K/mcL (140-440); RBC 3.61 M/mcL (3.59-5.38); Red Cell Distribution Width 14.8 % (11.5-14.5); WBC 17.3 K/mcL (4.50-11.00)
[2020-02-27 07:01] LABS: ALT/SGPT 12 U/l (0-40); AST/SGOT 18 U/l (0-37); Albumin 2.4 gm/dL (3.2-5.2); Albumin/Globulin Ratio 0.9 (1.0-2.3); Alkaline Phosphatase 106 U/L (39-117); Bilirubin,Direct < 0.2 mg/dL (0.0-0.3); Bilirubin,Total < 0.2 mg/dL (0.0-1.0); Blood Urea Nitrogen 38 mg/dl (8-23); Calcium 9.6 mg/dl (8.6-10.4); Carbon Dioxide 24 mmol/L (22-30); Globulin 2.8 gm/dL (2.2-3.7); Glomerular Filtration Rate 8; Glucose 131 mg/dL (70-105); Lactate Dehydrogenase 258 U/L (94-250); Phosphorous 3.4 mg/dL (2.7-4.5); Triglycerides 97 mg/dl (<150); Uric Acid 4.3 mg/dL (2.5-8.0)
[2020-02-27 07:27] LABS: Chloride 92 mmol/L (96-108)
[2020-02-27 08:17] LABS: Anisocytosis 1+ (NONE SEEN); Eosinophils % (Manual) 1 % (0-7); Lymphocytes % 14 % (15-49); Monocytes % (Manual) 7 % (1-12); Platelet Estimate INCREASED (NORMAL); RBC Morphology ABNORM (NORMAL); Segmented Neutrophils % 78 % (38-78)
[2020-02-27] MEDS: INSULIN LISPRO 1 UNIT/0.01 ML UNIT SQ SCH (08:38)
[2020-02-27] MEDS: [UNRECOGNIZED DRUG - OTHER] SL SCH (08:38)
[2020-02-27] MEDS ORDERED: MAGNESIUM HYDROXIDE 30 ML ORAL.SUSP PO SCH (09:00)
[2020-02-27] MEDS: METOCLOPRAMIDE 10 MG TABLET PO SCH (09:55)
[2020-02-27] MEDS: ASPIRIN 81 MG TAB.CHEW PO SCH (09:55)
[2020-02-27] MEDS: CINACALCET 30 MG TABLET PO SCH (09:56)
[2020-02-27] MEDS: MULTIVIT,THER IRON,CA,FA & MIN 1 TABLET PO SCH (09:56)
[2020-02-27] MEDS: VITAMIN D3 1,000 UNIT TABLET PO SCH (09:56)
[2020-02-27] MEDS: SEVELAMER 800 MG TABLET PO SCH (09:56)
[2020-02-27] MEDS: CALCITRIOL 0.25 MCG CAPSULE PO SCH (09:56)
[2020-02-27] MEDS: POTASSIUM CHLORIDE 20 MEQ/15 ML ML PO SCH (09:57)
[2020-02-27] MEDS: HEPARIN 5,000 UNIT/ML VIAL SQ SCH (09:58)
[2020-02-27] MEDS: DOCUSATE SODIUM 100 MG CAPSULE PO SCH (09:58)
[2020-02-27] MEDS: PANTOPRAZOLE 40 MG TABLET PO SCH (10:11)
--- NOTE | 2020-02-27 10:26 | Discharge Summary ---
Discharge Provider Provider Patient information: Note initiated : 02/27/20 at 10:23 am Service Date, if different from initiated Date: [] Patient: Ema Vang 80 y/o F admitted on 02/22/20 for stomach pain. Chief Complaint: [] Date of admission: 02/22/20 21:42 Discharge date: 02/27/20 Primary care physician: Sky Ceja Consults: 02/22/20 Consult to Physician [CONS] Stat Comment: Consulting Provider: Dalton Buck Reason For Exam: Physician to Consult 02/22/20 22:22 Consult to Physician [CONS] Routine Comment: Consulting Provider: Nancy Gonzales Reason For Exam: Physician to Consult Discharge Meds Discharge Medications Home Medications cholecalciferol (vitamin D3) 50 mcg (2,000 unit) capsule 2,000 unit PO QDAY #30 cap 07/02/19 [Rx Confirmed 02/23/20 Last Taken 12/21/19 08:00] glipizide 2.5 mg PO QAM PRN 11/19/19 [History Confirmed 02/23/20 Last Taken Unknown] glipizide 5 mg PO QPM PRN 11/19/19 [History Confirmed 02/23/20 Last Taken Unknown] pantoprazole 20 mg PO QDAY 11/19/19 [History Confirmed 02/23/20 Last Taken 12/30/19 07:30] potassium chloride 40 meq PO DAILY 11/19/19 [History Confirmed 02/23/20 Last Taken 12/21/19 08:00] Lactobacillus acidophilus 100 mg PO DAILY 12/07/19 [History Confirmed 02/23/20 Last Taken Unknown] Accu-Chek 1 each FS ACHS strip 12/08/19 [Rx Confirmed 02/23/20 Last Taken 12/30/19 11:30] Ferrous Fumarate 650 mg PO DAILY 12/23/19 [History Confirmed 02/23/20 Last Taken 12/21/19 07:30] ascorbic acid (vitamin C) 500 mg PO DAILY 12/24/19 [History Confirmed 02/23/20 Last Taken 12/21/19 20:00] cinacalcet 90 mg PO QAM 12/24/19 [History Confirmed 02/23/20 Last Taken 12/30/19 08:00] fluticasone propion-salmeterol 1 - 2 puff INH Q12HP PRN 12/24/19 [History Confirmed 02/23/20 Last Taken 12/22/19 21:00] ropinirole 0.25 mg tablet 0.25 mg PO HS #14 tab 01/07/20 [Rx Confirmed 02/23/20 Last Taken Unknown] atorvastatin 20 mg tablet 20 mg PO QHS #90 tab 02/17/20 [Rx Confirmed 02/23/20 Last Taken Unknown] acetaminophen [Tylenol] 325 - 650 mg PO Q4-6HP PRN 02/23/20 [History Confirmed 02/23/20 Last Taken Unknown] aspirin 81 mg PO QDAY 02/23/20 [History Confirmed 02/23/20 Last Taken Unknown] calcitriol 0.25 mcg PO QDAY 02/23/20 [History Confirmed 02/23/20 Last Taken Unknown] diclofenac epolamine [Flector] 1 patch TOPICAL DAILY PRN 02/23/20 [History Confirmed 02/23/20 Last Taken Unknown] docusate sodium [Colace] 100 mg PO BID 02/23/20 [History Confirmed 02/23/20 Last Taken Unknown] herbal drugs 2 tab PO BID 02/23/20 [History Confirmed 02/23/20 Last Taken Unknown] loperamide 2 mg PO Q6H PRN 02/23/20 [History Confirmed 02/23/20 Last Taken Unknown] metoclopramide HCl [Reglan] 5 mg PO QAM 02/23/20 [History Confirmed 02/23/20 Last Taken Unknown] promethazine 25 mg PO Q6H PRN 02/23/20 [History Confirmed 02/23/20 Last Taken Unknown] potassium chloride 10 meq PO BID #1200 ml 02/27/20 [Rx Last Taken Unknown] sulfamethoxazole-trimethoprim 20 ml PO BID #473 ml MDD 800/160- BID 02/27/20 [Rx Last Taken Unknown] COURSE Hospital Course Hospital Course: Discharge diagnosis * Culture negative PD related peritonitis-discharging on Bactrim oral suspension per nephrology. * ESRD on PD -we will continue follow-up with nephrology as outpatient * Severe sepsis clinically resolved. * Hypokalemia management per nephrology recommendations. Resolved. On oral potassium * History of esophageal stricture on barium/Mild colitis on CT abdomen.Patient scheduled to follow-up with GI Dr. Quiroz as outpatient. Continue dysphagia diet/ST eval * Recurrent spasms/restless leg -improved and OTC medication * History of COPD-continue home bronchodilators * History of HTN continue home dose antihypertensives * Hyperlipidemia -Continue statin * DM type II continue basal prandial insulin/CC diet * GERD continue PPI Brief hospital course History of present illness: Ms. Vang is a 80 year old F with a history of HTN, DM, ESRD on PD with recent episode of peritonitis status post treatment on antibiotics. She presented to [facility] with worsening abdominal pain weakness lightheadedness. Initial work-up was consistent with sepsis with a white count of 16.5/potassium 2.5. CT abdomen shows mild colitis. Due to suspected recurrent peritonitis nephrology was consulted and requested patient be transferred to [facility]. Subsequently hospitalist service was consulted for admission. At the time of my evaluation patient is alert and oriented. She is able to answer most of the questions. She Is trying to recover from recent loss of her 2 weeks ago. She has had an appointment with GI but has not been able to follow-up due to recent loss of spouse. Peritoneal fluid was sent for investigation cloudy in appearance. Patient denies associated fever, headache, nausea vomiting or shortness of breath but endorses to intermittent diarrhea. She also denies confusion/joint pain/rash --02/22-patient doing better. White count down to 15.2, potassium up from 2.5- >3.3. Creatinine 5.7. Restarted on home medications. Await peritoneal fluid culture/cell count. On antibiotic coverage as per nephrology. Blood sugars at goal. 02/23-patient is white count 6000+. However improving with antibiotic coverage and repeat white count down to 3500. Peripheral white count down to 11,000. Abdominal pain improving. More alert lucid. Ongoing peritoneal dialysis. Potassium improved to 3.5. No other concerns expressed by nursing staff. Interval history: Narrative: 02/24 patient doing well. White count 11.5. On antibiotic coverage per nephrology for culture-negative peritonitis. Ongoing peritoneal dialysis. Nontoxic. Stable labs and hemodynamics 02/25-patient doing a lot better. Ongoing PD. Antibiotic discontinued for nephrology. Patient wondering about discharge plan. Low potassium on replacement. 02/26-patient doing well. Discharging as per nephrology recommendations on Bactrim. Feeling a lot better. Ongoing peritoneal dialysis. Discharge diagnosis: . Time Spent with Patient Time attestation: Total time spent providing and/or coordinating discharge services: EXAM Constitutional Vitals: Temp Pulse Resp BP Pulse Ox 98.2 F 102 H 22 126/62 98 02/27/20 08:28 02/27/20 08:28 02/27/20 08:28 02/27/20 08:28 02/27/20 08:28 Discharge Data Data Completed and Pending Labs on day of discharge: Labs from last 24 hours 02/27/20 02/27/20 02/26/20 04:28 04:28 08:15 WBC 17.3 H RBC 3.61 Hgb 9.9 L Hct 32.1 L MCV 88.9 MCH 27.4 MCHC 30.8 L RDW 14.8 H Plt Count 581 H MPV 8.7 Total Counted 100 Seg Neutrophils % 78 Band Neutrophils % Not Reportable Lymphocytes % 14 L Monocytes % (Manual) 7 Eosinophils % (Manual) 1 Platelet Estimate Increased RBC Morphology Abnorm A Anisocytosis 1+ A Sodium 130 L Potassium 3.2 L Chloride 92 L Carbon Dioxide 24 Anion Gap 14.0 BUN 38 H Creatinine 4.7 H GFR Calculation 8 Glucose 131 H Uric Acid 4.3 Calcium 9.6 Phosphorus 3.4 Magnesium 1.6 Total Bilirubin < 0.2 Direct Bilirubin < 0.2 GGT 17 AST 18 ALT 12 Alkaline Phosphatase 106 Lactate Dehydrogenase 258 H Total Protein 5.2 L Albumin 2.4 L Globulin 2.8 Albumin/Globulin Ratio 0.9 L Triglycerides 97 Peritoneal Source Peritoneal Peritoneal Color Colorless Peritoneal Appearance Clear Peritoneal RBC < [address] 100 Periton Nuc Cells 23 Periton Neutrophils 22 Periton Lymphocytes 50 Peritoneal Monocytes 26 Peritoneal Eosinophils 1 Periton Mesothelial 1 Discharge Plan Patient/Caregiver Discharge Instructions Activity: increase activity as tolerated Diet: Renal/Consistent Carbs Instructions: Chronic Kidney Disease (GEN), Sepsis (GEN), Peritonitis (GEN) Activity Restrictions/Additional Instructions: * Follow-up nephrology as outpatient for continued dialysis * Follow-up Dr. Harden for esophageal stricture evaluation dilatation * Continue dysphagia diet until GI follow-up * Continue oral Septra for SBP prophylaxis * Continue potassium supplement as per nephrology recommendations This discharge packet is provided to you to help keep you informed about your care. We want to ensure you get everything you need when you go home. You will also be receiving a call from us in a few days to follow up with you and see how you are doing since your discharge. This gives us a chance to listen to any concerns you maybe experiencing since you were discharged or any additional needs you may have, as well as providing us feedback on your care experience. We strive to always provide excellent care and thank you for your feedback and for choosing [facility]. Prescriptions: New potassium chloride 20 mEq/15 mL liquid 10 meq PO BID Qty: 1200 RF: 0 sulfamethoxazole-trimethoprim 200-40 mg/5 mL suspension 20 ml PO BID MDD 800/160- BID Qty: 473 RF: 0 Continued cholecalciferol (vitamin D3) 2,000 unit capsule 2,000 unit PO QDAY Qty: 30 RF: 3 ropinirole 0.25 mg tablet 0.25 mg PO HS Qty: 14 RF: 0 atorvastatin 20 mg tablet 20 mg PO QHS Qty: 90 RF: 3 glipizide 5 MG tablet 2.5 mg PO QAM PRN (Reason: Blood Sugar - High) RF: 0 glipizide 5 MG tablet 5 mg PO QPM PRN (Reason: Blood Sugar - High) RF: 0 potassium chloride 20 MEQ packet 40 meq PO DAILY RF: 0 pantoprazole 40 MG tablet,delayed release (DR/EC) 20 mg PO QDAY RF: 0 Lactobacillus acidophilus 100 MG capsule 100 mg PO DAILY RF: 0 Accu-Chek 1 EACH strip 1 each FS ACHS RF: 0 Ferrous Fumarate 650 mg PO DAILY RF: 0 cinacalcet 30 MG tablet 90 mg PO QAM RF: 0 fluticasone propion-salmeterol 12 GM HFA aerosol inhaler 1 - 2 puff INH Q12HP PRN (Reason: Shortness Of Breath) RF: 0 ascorbic acid (vitamin C) 500 MG tablet 500 mg PO DAILY RF: 0 metoclopramide HCl [Reglan] 5 mg Tablet 5 mg PO QAM RF: 0 docusate sodium [Colace] 100 mg Capsule 100 mg PO BID RF: 0 aspirin 81 mg Tablet,Chewable 81 mg PO QDAY RF: 0 calcitriol 0.25 mcg Capsule 0.25 mcg PO QDAY RF: 0 acetaminophen [Tylenol] 325 mg Capsule 325 - 650 mg PO Q4-6HP PRN (Reason: Pain) RF: 0 loperamide 2 mg Capsule 2 mg PO Q6H PRN (Reason: Diarrhea) RF: 0 promethazine 25 mg Tablet 25 mg PO Q6H PRN (Reason: Vomiting) RF: 0 diclofenac epolamine [Flector] 1.3 % Patch 12 Hour 1 patch TOPICAL DAILY PRN (Reason: Artritis) RF: 0 herbal drugs Tablet 2 tab PO BID RF: 0 Follow Up Plan Follow up with: Florentin Harden MD [Physician] - (Dr. Harden's office will call you to schedule an appointment. ) Sky Ceja MD [Primary Care Provider] - 03/06/20 10:15 am Patient Disposition: Home, Self-Care Hospital Course: Discharge diagnosis * Culture negative PD related peritonitis-discharging on Bactrim oral suspension per nephrology. * ESRD on PD -we will continue follow-up with nephrology as outpatient * Severe sepsis clinically resolved. * Hypokalemia management per nephrology recommendations. Resolved. On oral potassium * History of esophageal stricture on barium/Mild colitis on CT abdomen.Patient scheduled to follow-up with GI Dr. Quiroz as outpatient. Continue dysphagia diet/ST eval * Recurrent spasms/restless leg -improved and OTC medication * History of COPD-continue home bronchodilators * History of HTN continue home dose antihypertensives * Hyperlipidemia -Continue statin * DM type II continue basal prandial insulin/CC diet * GERD continue PPI Brief hospital course History of present illness: Ms. Vang is a 80 year old F with a history of HTN, DM, ESRD on PD with recent episode of peritonitis status post treatment on antibiotics. She presented to [facility] with worsening abdominal pain weakness lightheadedness. Initial work-up was consistent with sepsis with a white count of 16.5/potassium 2.5. CT abdomen shows mild colitis. Due to suspected recurrent peritonitis nephrology was consulted and requested patient be transferred to [facility] ER. Subsequently hospitalist service was consulted for admission. At the time of my evaluation patient is alert and oriented. She is able to answer most of the questions. She Is trying to recover from recent loss of her 2 weeks ago. She has had an appointment with GI but has not been able to follow-up due to recent loss of spouse. Peritoneal fluid was sent for investigation cloudy in appearance. Patient denies associated fever, headache, nausea vomiting or shortness of breath but endorses to intermittent diarrhea. She also denies confusion/joint pain/rash --02/22-patient doing better. White count down to 15.2, potassium up from 2.5- >3.3. Creatinine 5.7. Restarted on home medications. Await peritoneal fluid culture/cell count. On antibiotic coverage as per nephrology. Blood sugars at goal. 02/23-patient is white count 6000+. However improving with antibiotic coverage and repeat white count down to 3500. Peripheral white count down to 11,000. Abdominal pain improving. More alert lucid. Ongoing peritoneal dialysis. Potassium improved to 3.5. No other concerns expressed by nursing staff. Interval history: Narrative: 02/24 patient doing well. White count 11.5. On antibiotic coverage per nephrology for culture-negative peritonitis. Ongoing peritoneal dialysis. Nontoxic. Stable labs and hemodynamics 02/25-patient doing a lot better. Ongoing PD. Antibiotic discontinued for nephrology. Patient wondering about discharge plan. Low potassium on replacement. 02/26-patient doing well. Discharging as per nephrology recommendations on Bactrim. Feeling a lot better. Ongoing peritoneal dialysis. Prognosis: Fair Overall status at discharge: patient is progressing back to baseline Discharge Date/Time: 02/27/20 13:50 Discharge Orders: Discharge Order (Routine); Ordered 02/27/20 Ordered By: Dalton Buck
== END 2020-02-27 13:50 | disposition home or self-care (01) | DRG 867 ==
LOC: ED 20:10 → ICU 21:42
PROVIDERS: ADMIT Internal Medicine; ATTEND Internal Medicine